=== PATIENT | male | born 1960 | race Two or more races ===

== ENCOUNTER 2020-03-20 04:39 | Inpatient (IN) | payer OTHER, SELFPAY ==
[2020-03-20] VITALS (13 sets, daily range): BP systolic 160–204; BP diastolic 86–115; PULSE 58–83; RESP 16–18; TEMP 36.6–36.8; O2SAT 96–99; BMI 33.2
--- NOTE | 2020-03-20 04:57 | PC.NURSE ---
PT TO ROOM #18 WITH C/O SOB AND LEFT SIDED CHEST PAIN WHICH STARTED 2 DAYS AGO. PT ARRIVES ALERT, RESPIRATIONS EASY, N/L. AT BEDSIDE FOR EVAL.
--- NOTE | 2020-03-20 05:01 | ECG_ITS ---
Test Reason : cp Blood Pressure : / mmHG Vent. Rate : 075 BPM Atrial Rate : 075 BPM P-R Int : 202 ms QRS Dur : 122 ms QT Int : 424 ms P-R-T Axes : 054 -15 116 degrees QTc Int : 473 ms Sinus rhythm with occasional Premature ventricular complexes Non-specific intra-ventricular conduction delay T wave abnormality, consider lateral ischemia Left axis deviation Abnormal ECG When compared with ECG of 06-MAY-2019 15:56, Premature ventricular complexes are now Present Premature atrial complexes are no longer Present Referred By: Amrik Luis Electronically Signed By:JAYCEE LIU MD
--- NOTE | 2020-03-20 05:04 | ED.SOB ---
HPI - SOB/Dyspnea General Chief Complaint: Dyspnea Stated Complaint: SOB Time Seen by Provider: 03/20/20 04:49 Source: patient History of Present Illness HPI Narrative: 59-year-old male states of chest pain for the past 2 days. Worsening with exertion and tonight states was feeling some shortness of breath with laying down. Denies diaphoresis denies dizziness. Denies recent cough or illness. Denies nausea or vomiting. States chest pain starts in the center radiates to the left side that has been constant for 2 days no cough MD elicited complaint: shortness of breath Onset (ago): day(s) (2) Severity: moderate Exacerbating factors: lying flat and exertion Relieving factors: rest Known history of: congestive heart failure Treatment prior to arrival: none Related Data Allergies Allergy/AdvReac Type Severity Reaction Status Date / Time No Known Allergies Allergy Unverified 01/13/20 18:50 [No Known Allergies*] Review of Systems Review of Systems: Constitutional : No Weight loss, No Fever, No Chills, No Night Sweats, No Fatigue, No Malaise ENT/Mouth : No Hearing loss, No Ear Pain, No Nasal Congestion, No Sinus Pain, No Hoarseness, No sore throat, No Rhinorrhea, No Swallowing Difficulty Eyes: No Eye Pain, No Swelling, No Redness, No Foreign Body, No Discharge, No Vision Changes Cardiovascular : Positive Chest Pain, No SOB, No Dyspnea on Exertion, No Orthopnea, No Edema, No Palpitations Respiratory : No Cough, No Sputum, No Wheezing, No Smoke Exposure, mild Dyspnea Gastrointestinal : No Nausea, No Vomiting, No Diarrhea, No Constipation, No abdominal Pain, No Hematochezia, No Melena Genitourinary : no irregular bleeding, No Dysuria, No Urinary Frequency, No Hematuria, No Urinary Incontinence, No Urgency, No Flank Pain, No Urinary Flow Changes, No Hesitancy Musculoskeletal : No joint pain, No Myalgias, No Joint Swelling Skin : No Skin Lesions, No rash Neuro : No Weakness, No Numbness, No Paresthesias, No Loss of Consciousness, No Dizziness, No Headache Psych : No Anxiety/Panic, No Depression, No SI/HI/AH/VH, No Social Issues, Heme/Lymph: No Bruising, No Bleeding,No Lymphadenopathy Endocrine : No Polyuria, No Polydipsia, No Temperature Intolerance [facility] Past Medical History Medical History CHF (congestive heart failure) Hypertension Renal infarct Family History Family History (Updated 03/20/20 @ 05:05 by Amrik Luis DO) Other Family history non-contributory Social History Social History (Updated 03/20/20 @ 05:04 by Amrik Luis DO) Household Members: Family Advance Directives: Yes Advance Directives Information Provided: Yes Advance Directives on File: No Physical Exam Vital Signs: Vital Signs: Last Vital Signs Pulse 79 03/20/20 06:42 Resp 16 03/20/20 06:42 BP 172/86 H 03/20/20 06:42 Pulse Ox 99 03/20/20 06:42 Body Mass Index 33.2 Vital signs reviewed Appearance: Alert. Oriented X3. No acute distress. Eyes: Pupils equal, round and reactive to light. ENT: Pharynx normal. Neck: Normal inspection. Neck supple. No lymph nodes noted. No crepitus CVS: Normal heart rate and rhythm. Pulses normal. Normal S1 and S2 Respiratory: Mild respiratory distress. Breath sounds with bibasilar rales No Wheezing. No crackles Abdomen: Soft and nontender. No rigidity. No distention. good BS x4 Skin: Skin warm and dry. Normal skin color. Normal skin turgor. Extremities: No lower extremity edema. Neurovascular intact to all extremities. No Lacerations. No Rash Neuro: Oriented X 3. No motor deficit. No sensory deficit. Moving all extermities. No slurred speech. Course Reevaluation(s) Reevaluation #1: Patient with slightly elevated blood pressure. Patient with mild chest pain on left. Reevaluation #2: Records reviewed by me in 2017 with an EF% of 28% stress test Reevaluation #3: Multiple re-evaluations were done by me while the patient has been Emergency Department secondary to shortness of breath. Patient was given albuterol, nitroglycerin, IV Lasix in order to improve his symptoms and prevent further deterioration Consultations Consultation #1: I spoke with hospitalist, Dr. Dallas and will accept the patient for admission MDM - SOB/Dyspnea MDM Narrative Medical decision making narrative: 59-year-old male with a history of cardiomyopathy, CHF. With left-sided chest pain for 2 days with increased dyspnea on exertion and orthopnea for 1 day. Slightly elevated troponin slightly elevated BNP will treat with IV Lasix, nitro, aspirin. My impression is patient is and slight CHF. Will need to be admitted for IV diuretics and further workup Differential Diagnosis Differential diagnosis: Likely acute exacerbation of chronic obstructive airways disease, congestive heart failure, pneumonia and asthma with exacerbation Lab Data Result diagrams: 03/20/20 05:15 03/20/20 05:15 Labs: Lab Results 03/20/20 03/20/20 03/20/20 Range/Units 05:15 05:15 05:15 WBC 6.2 (4.8-10.8) X10*3/uL RBC 4.73 (4.60-5.80) X10*6/uL Hgb 14.4 (14.0-18.0) g/dl Hct 43.2 (42-52) % MCV 91.3 (80-98) fL MCH 30.4 (27.0-33.0) pg MCHC 33.3 (31.0-36.0) g/dl RDW 12.5 (11.0-16.0) % Plt Count 302 (160-400) X10*3/uL MPV 10.6 (9.4-12.4) fL Immature Gran % (Auto) 0.2 (0.0-0.4) % Neut % (Auto) 45.4 (45-73) % Lymph % (Auto) 39.2 (20-40) % [place] % (Auto) 11.2 H (2-11) % Eos % (Auto) 3.2 (0-4) % Baso % (Auto) 0.8 (0-2) % Lymph # (Auto) 2.4 (1.2-4.9) X10*3/uL [place] # (Auto) 0.7 (0.1-1.2) X10*3/uL Eos # (Auto) 0.2 (0.0-0.4) X10*3/uL Baso # (Auto) 0.1 (0.0-0.2) X10*3/uL Abs Immat Gran (auto) 0.01 (0.00-0.03) X10*3/uL Absolute Neuts (auto) 2.8 (2.0-8.3) X10*3/uL Absolute Nucleated RBC 0.000 (0.0-0.012) X10*3/uL Nucleated RBC % (auto) 0.0 (0.0-0.2) /100WBC Hold Blue Top SEE NOTE Sodium 141 (135-145) mmol/L Potassium 4.3 (3.3-5.1) mmol/l Chloride 106 (96-108) mmol/L Carbon Dioxide 27 (22-29) mmol/L Anion Gap 12 (12-20) BUN 23 H (9-16) mg/dL Creatinine 1.37 (0.5-1.4) mg/dL Estim Creat Clear Calc 72.8 Estimated GFR 53 Random Glucose 104 (60-115) mg/dL Calcium 9.1 (8.4-10.2) mg/dL Total Bilirubin 0.4 (0.0-1.0) mg/dL Direct Bilirubin 0.2 (0.0-0.5) mg/dL AST 17 (5-37) U/L ALT 16 (0-40) U/L Alkaline Phosphatase 87 (39-117) U/L Troponin I High Sens (<3.5-35.0) ng/L B-Natriuretic Peptide (<100) pg/mL Total Protein 6.7 (6.5-8.0) g/dL Albumin 4.1 (3.5-5.0) g/dL 03/20/20 Range/Units 05:15 WBC (4.8-10.8) X10*3/uL RBC (4.60-5.80) X10*6/uL Hgb (14.0-18.0) g/dl Hct (42-52) % MCV (80-98) fL MCH (27.0-33.0) pg MCHC (31.0-36.0) g/dl RDW (11.0-16.0) % Plt Count (160-400) X10*3/uL MPV (9.4-12.4) fL Immature Gran % (Auto) (0.0-0.4) % Neut % (Auto) (45-73) % Lymph % (Auto) (20-40) % Sampson % (Auto) (2-11) % Eos % (Auto) (0-4) % Baso % (Auto) (0-2) % Lymph # (Auto) (1.2-4.9) X10*3/uL Sampson # (Auto) (0.1-1.2) X10*3/uL Eos # (Auto) (0.0-0.4) X10*3/uL Baso # (Auto) (0.0-0.2) X10*3/uL Abs Immat Gran (auto) (0.00-0.03) X10*3/uL Absolute Neuts (auto) (2.0-8.3) X10*3/uL Absolute Nucleated RBC (0.0-0.012) X10*3/uL Nucleated RBC % (auto) (0.0-0.2) /100WBC Hold Blue Top Sodium (135-145) mmol/L Potassium (3.3-5.1) mmol/l Chloride (96-108) mmol/L Carbon Dioxide (22-29) mmol/L Anion Gap (12-20) BUN (9-16) mg/dL Creatinine (0.5-1.4) mg/dL Estim Creat Clear Calc Estimated GFR Random Glucose (60-115) mg/dL Calcium (8.4-10.2) mg/dL Total Bilirubin (0.0-1.0) mg/dL Direct Bilirubin (0.0-0.5) mg/dL AST (5-37) U/L ALT (0-40) U/L Alkaline Phosphatase (39-117) U/L Troponin I High Sens 60.2 H (<3.5-35.0) ng/L B-Natriuretic Peptide 402 H (<100) pg/mL Total Protein (6.5-8.0) g/dL Albumin (3.5-5.0) g/dL Critical Care Time Critical Care Time Critical Care Time: Yes Total Critical Care Time: 35 Attestation: I that test to my critical care time Discharge Plan Discharge Clinical Impression: Congestive heart failure Qualifiers: Heart failure type: systolic Heart failure chronicity: acute Qualified Code(s): I50.21 - Acute systolic (congestive) heart failure Patient Disposition: Admitted As Inpatient EKG interpretations EKG EKG results cardiology: interpreted by ODETTE Dysrhythmias Sinus rhythms and dysrhythmias: sinus rhythm Blocks, axis, hypertrophy, ST abn QRS axis and voltage: right axis deviation (+90 to +180) Repolarization changes or abnormalities: nonspecific abnormality, ST segment, and/or T wave MT, pacemaker, normal Normal tracing: normal tracing
[2020-03-20 05:20] LABS: Basophils Absolute Auto 0.1 X10*3/uL (0.0-0.2); Basophils Percent Auto 0.8 % (0-2); Eosinophils Absolute Auto 0.2 X10*3/uL (0.0-0.4); Eosinophils Percent Auto 3.2 % (0-4); Hematocrit 43.2 % (42-52); Hemoglobin 14.4 g/dl (14.0-18.0); Imm Gran Abs Auto 0.01 X10*3/uL (0.00-0.03); Imm Gran Pct Auto 0.2 % (0.0-0.4); Lymphocytes Absolute Auto 2.4 X10*3/uL (1.2-4.9); Lymphocytes Percent Auto 39.2 % (20-40); MANUAL DIFF FLAG NO; Mean Corpuscular HGB Conc 33.3 g/dl (31.0-36.0); Mean Corpuscular Hemoglobin 30.4 pg (27.0-33.0); Mean Corpuscular Volume 91.3 fL (80-98); Mean Platelet Volume 10.6 fL (9.4-12.4); Monocytes Absolute Auto 0.7 X10*3/uL (0.1-1.2); Monocytes Percent Auto 11.2 % (2-11); Neutrophils Absolute Auto 2.8 X10*3/uL (2.0-8.3); Neutrophils Percent Auto 45.4 % (45-73); Platelet Count 302 X10*3/uL (160-400); Red Blood Count 4.73 X10*6/uL (4.60-5.80); Red Cell Distribution Width 12.5 % (11.0-16.0); White Blood Count 6.2 X10*3/uL (4.8-10.8)
--- NOTE | 2020-03-20 05:20 | PC.NURSE ---
PT CHG INTO GOWN AND HL PLACED TO LAC, LABS DRAWN TO LAB. PT ON MONITOR WITH HR 67.
--- NOTE | 2020-03-20 05:21 | PC.NURSE ---
B/P MD VITOR AWARE.
--- NOTE | 2020-03-20 05:39 | PC.NURSE ---
EKG OBTAINED TO
[2020-03-20] MEDS: Albuterol/Iprat 2.5/0.5MG 3 ML AMPUL.NEB INHALE (05:43)
--- NOTE | 2020-03-20 05:44 | PC.NURSE ---
RESPIRATORY IN ROOM FOR ISABEL IYER.
[2020-03-20 05:46] LABS: Alanine Aminotransferase 16 U/L (0-40); Albumin Level 4.1 g/dL (3.5-5.0); Alkaline Phosphatase 87 U/L (39-117); Anion Gap 12 (12-20); Aspartate Amino Transferase 17 U/L (5-37); Bilirubin Direct 0.2 mg/dL (0.0-0.5); Bilirubin Total 0.4 mg/dL (0.0-1.0); Blood Urea Nitrogen 23 mg/dL (9-16); Calcium 9.1 mg/dL (8.4-10.2); Carbon Dioxide 27 mmol/L (22-29); Chloride 106 mmol/L (96-108); Creatinine Clr Calc Pharmacy 72.8; Estimated Glomerular Filt Rate 53; Glucose Random 104 mg/dL (60-115); Potassium 4.3 mmol/l (3.3-5.1); Sodium 141 mmol/L (135-145); Total Protein 6.7 g/dL (6.5-8.0)
[2020-03-20 05:54] LABS: B Type Natriuretic Peptide 402 pg/mL (<100); Troponin-I High Sensitivity 60.2 ng/L (<3.5-35.0)
--- NOTE | 2020-03-20 05:57 | XR_ITS ---
EXAMINATION: XR CHEST CLINICAL INFORMATION: Chest pain COMPARISON: 05/06/2019 TECHNIQUE: Frontal view of the chest was obtained. FINDINGS: Lung volumes are symmetric. No focal consolidation is seen. There is mild prominence of the perihilar interstitium. No evidence of pneumothorax or significant pleural effusion. Cardiac silhouette appears mildly enlarged. No acute osseous findings are seen. XR/XR chest 1V IMPRESSION: Prominent perihilar interstitium which could reflect airways disease or mild vascular congestion. No focal consolidation.
[2020-03-20] MEDS: Nitroglycerin 2 % Oint 1 GM Packet 0.5 INCH TRANSDERMA (06:37)
[2020-03-20] MEDS: Aspirin 81 MG TAB.CHEW 162 MG PO (06:37)
[2020-03-20] MEDS: Furosemide 100 MG/10 ML VIAL 80 MG IVPUSH (06:38)
--- NOTE | 2020-03-20 06:41 | PC.NURSE ---
PT MEDICATED PER EMAR.
--- NOTE | 2020-03-20 06:44 | PC.NURSE ---
PT STATES IM BREATHING BETTER AND MY CHEST PAIN IS NOW AT A 6/10. PT REQUESTING TO MOVE ROOM D/T TV IS NOT WORKING.
--- NOTE | 2020-03-20 07:27 | PC.NURSE ---
Report received from Anna CARLOS. Patient resting comfortably on stretcher and reports improvement in pain. On athletic monitor. Respirations regular and even, reports improvement in SOB. Skin PWD. Patient aware of plan of care for admission. Fiance updated at this time. Can be reached [phone]. Awaiting admission orders.
--- NOTE | 2020-03-20 08:28 | PM.IMHP ---
History of Present Illness Date of Service: 03/20/20 Chief Complaint: Orthopnea, COREA, Chest Pressure Patient seen and examined in the ED, history obtained from the patient with the help of a Syriac speaking staff interpreter. This is a 59-year-old male with a past medical history of of cardiomyopathy ( nonischemic per previous documentation), hypertension, CKD who presents to the hospital complaints of left-sided pressure and orthopnea which began 2 days prior to arrival. He reports feeling like himself until his symptoms began Friday and have since progressed. He is unsure if he has gained any weight but denies any lower extremity swelling. He reports his SOB was primarily orthopnea initially, but eventually even while sitting. In regards to his left sided pressure, he reports that it was a constant aching, and that he wouldnt call it pain. Reports he was left chest and radiated to the L axilla. He denies any cough or sob. Denies fevers or chills. He denies any sick contacts. Patient reports that he went to his doctors at the [facility] last week where he had an echocardiogram and he was told everything was fine. In the ED - patients BP was >200/100, a BNP elevated to 402, high sensitivity troponin 60.2, EKG showing some nonspecific T-wave abnormalities and a chest x-ray which showed congestion. He was given nitropaste, aspirin, Lasix 80 mg with improvement in his symptoms and admission was requested for CHF exacerbation. Review of Systems Review of Systems: General - denies fevers or chills, denies weakness or fatigue HEENT - denies blurred vision, denies headache, denies sore throat Cardiovascular - +chest pressure, +orthopnea,+COREA Respiratory - denies cough or wheezing Gastrointestinal - denies abdominal pain, nausea, vomiting, diarrhea - denies flank pain, denies dysuria, denies frequency or urgency Musculoskeletal - denies back pain, denies hip pain, denies knee pain, denies shoulder pain Neurological - denies any focal weakness or numbness Skin, denies any bruising or redness Psychiatric - denies any suicidal ideation, hallucinations, homicidal ideation Endocrinology - denies intolerance to hot / cold temperatures [facility] Medical History CHF (congestive heart failure) Hypertension Renal infarct Family History (Updated 03/20/20 @ 08:37 by Kaiden Lundy MD) Other CAD (coronary artery disease) Social History (Updated 03/20/20 @ 05:04 by Amrik Luis DO) Household Members: Family Alcohol intake: never Smoking Status: Never smoker Use of substances other than those prescribed or required for medical reasons: No Advance Directives: Yes Advance Directives Information Provided: Yes Advance Directives on File: No Meds Allergies Allergy/AdvReac Type Severity Reaction Status Date / Time No Known Allergies Allergy Unverified 01/13/20 18:50 [No Known Allergies*] Home Medications Medication Instructions Recorded Confirmed Type amlodipine 10 mg PO BEDTIME 03/20/20 03/20/20 History carvedilol 25 mg PO BEDTIME 03/20/20 03/20/20 History furosemide 20 mg PO BEDTIME 03/20/20 03/20/20 History sacubitril-valsartan [Entresto] 1 tab PO BEDTIME 03/20/20 03/20/20 History spironolactone 25 mg PO BEDTIME 03/20/20 03/20/20 History Physical Exam Vital Signs and Narrative: Vital Signs: Last Vital Signs Pulse 79 03/20/20 06:42 Resp 16 03/20/20 06:42 BP 172/86 H 03/20/20 06:42 Pulse Ox 99 03/20/20 06:42 Body Mass Index 33.2 Constitutional - Awake and Alert, No apparent distress Eyes - PERRLA, EOMI Cardiovascular - S1S2, RRR, minimal LE edema Respiratory - rales at the bilateral bases Gastrointestinal - NT / ND; +BS; No rebound or guarding - No CVA tenderness Extremities - no calf tenderness bilaterally, no swelling Musculoskeletal - Normal inspection, normal ROM Skin - Warm/Dry Neurological - Alert & oriented x3, No focal deficit Psychological - Appropriate affect Results Labs CBC and Chem 7: 03/20/20 05:15 03/20/20 05:15 Labs: Laboratory Results - last 24 hr 03/20/20 03/20/20 03/20/20 05:15 05:15 05:15 MCV 91.3 MCH 30.4 MCHC 33.3 RDW 12.5 Plt Count 302 MPV 10.6 Immature Gran % (Auto) 0.2 Neut % (Auto) 45.4 Lymph % (Auto) 39.2 [place] % (Auto) 11.2 H Eos % (Auto) 3.2 Baso % (Auto) 0.8 Lymph # (Auto) 2.4 [place] # (Auto) 0.7 Eos # (Auto) 0.2 Baso # (Auto) 0.1 Abs Immat Gran (auto) 0.01 Absolute Neuts (auto) 2.8 Absolute Nucleated RBC 0.000 Nucleated RBC % (auto) 0.0 Hold Blue Top SEE NOTE Anion Gap 12 Estim Creat Clear Calc 72.8 Estimated GFR 53 Random Glucose 104 Calcium 9.1 Total Bilirubin 0.4 Direct Bilirubin 0.2 AST 17 ALT 16 Alkaline Phosphatase 87 Troponin I High Sens B-Natriuretic Peptide Total Protein 6.7 Albumin 4.1 03/20/20 05:15 MCV MCH MCHC RDW Plt Count MPV Immature Gran % (Auto) Neut % (Auto) Lymph % (Auto) [place] % (Auto) Eos % (Auto) Baso % (Auto) Lymph # (Auto) [place] # (Auto) Eos # (Auto) Baso # (Auto) Abs Immat Gran (auto) Absolute Neuts (auto) Absolute Nucleated RBC Nucleated RBC % (auto) Hold Blue Top Anion Gap Estim Creat Clear Calc Estimated GFR Random Glucose Calcium Total Bilirubin Direct Bilirubin AST ALT Alkaline Phosphatase Troponin I High Sens 60.2 H B-Natriuretic Peptide 402 H Total Protein Albumin Imaging Radiologist's Impressions: Impressions Chest X-Ray 03/20/20 05:57 IMPRESSION: Prominent perihilar interstitium which could reflect airways disease or mild vascular congestion. No focal consolidation. Assessment and Plan (1) Congestive heart failure: Qualifiers: Heart failure chronicity: acute Heart failure type: systolic Qualified Code(s): I50.21 - Acute systolic (congestive) heart failure Status: Acute This is a 59 yo M with a PMH Of non-ischemic CMP (last Echo in our system in 2014 showing EF of 40-45%), previous renal infarct, HTN, ? CKD who presents to the hospital with a 2 day history of progressive dyspnea, orthopnea and chest pressure. His work up and presentation was consistant with CHF and he will be admitted for further treatment. 1. Acute CHF, likely systolic question if related to BP received IV lasix 80mg, start 40mg this evening I/O, daily weight, fluid restrict, low Na diet obtain Echo from [facility] (Pt reports done last week) 2. Chest pressure / elevated HS trop-I possibly due to CHF /HTN, HS trop-I not entirely impressive, EKG with non-specific t-wave changes his pain has improved with nitro and diuresis in the ED trend HS trop-I - > repeat ecreased consult cardiology 3. Uncontrolled HTN restart home meds -- takes them in the evening at home, missed last night's doses give coreg 12.5mg + norsvac 5mg now 4. Prior history of renal infact was previously on OAC with coumadin, pt tells me he was taken off this Full Code DVT pptx, Lovenox
[2020-03-20 08:39] LABS: COVID-19 Test Negative (Negative); IDNOW Serial# 9DD0AD1C
--- NOTE | 2020-03-20 09:05 | PC.NURSE ---
Patient reporting he continues to feel comfortable and with regular, even, and nonlabored respirations. Skin PWD. Dr. Lundy down to assess patient. COVID swabbed and repeat Troponin drawn. Patient tolerated well. Report called to floor, awaiting call back. Pharmacy down to complete med rec. Awaiting floor to receive report.
--- NOTE | 2020-03-20 09:19 | PC.NURSE ---
Report given to [facility], awaiting room to be cleaned.
[2020-03-20 09:37] LABS: Troponin-I High Sensitivity 46.9 ng/L (<3.5-35.0)
[2020-03-20] MEDS: carvediloL 12.5 MG TABLET PO (10:59)
[2020-03-20] MEDS: 0.9 % Sodium Chloride Flush 3 ML SYRINGE IVFLUSH (11:00)
[2020-03-20] MEDS: amLODIPine Besylate 5 MG TABLET PO (11:42)
[2020-03-20] MEDS: Enoxaparin Sodium 40 MG/0.4 ML SYRINGE SUBCUT (11:42)
--- NOTE | 2020-03-20 12:13 | PM.CNCAR ---
History of Present Illness History of Present Illness Date of Consult: March 20, 2020 Requesting physician: Del Pagan Chief complaint: chf Narrative: 59-year-old gentleman who follows up at [facility] for heart failure. He has background of nonischemic cardiomyopathy. Recent echocardiography was performed a week ago which we do not have report of. He is presenting primarily for pressure in his chest and abdomen along with dyspnea and orthopnea. These symptoms started on Friday. He presented to us with significantly elevated blood pressures. He was given nitroglycerin patch as well as Lasix in the ER and his symptoms have improved. His blood pressure continues to be elevated. He has has been on multiple medications at home and is saying that he has been taking medications regularly. Previously it was thought that his nonischemic cardiomyopathy is due to elevated blood pressures. His chest pressure is improved after nitroglycerin and controlling his blood pressure somewhat. 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 Currently is not on Coumadin. There is also question whether he needs cardiac event monitor to rule out atrial fibrillation or atrial flutter. Review of Systems Review of Systems: Dyspnea, orthopnea Yes all other systems are reviewed and are negative [facility] Past Medical History Medical History CHF (congestive heart failure) Hypertension Renal infarct Family History Family History (Updated 03/20/20 @ 08:37 by Kaiden Lundy MD) Other CAD (coronary artery disease) Social History Social History (Updated 03/20/20 @ 05:04 by Amrik Luis DO) Household Members: Family Alcohol intake: never Smoking Status: Never smoker Use of substances other than those prescribed or required for medical reasons: No Advance Directives: Yes Advance Directives Information Provided: Yes Advance Directives on File: No Meds Allergies Allergy/AdvReac Type Severity Reaction Status Date / Time No Known Allergies Allergy Unverified 01/13/20 18:50 [No Known Allergies*] Home Medications Medication Instructions Recorded Confirmed Type amlodipine 10 mg PO BEDTIME 03/20/20 03/20/20 History carvedilol 25 mg PO BEDTIME 03/20/20 03/20/20 History furosemide 20 mg PO BEDTIME 03/20/20 03/20/20 History sacubitril-valsartan [Entresto] 1 tab PO BEDTIME 03/20/20 03/20/20 History spironolactone 25 mg PO BEDTIME 03/20/20 03/20/20 History Physical Exam Vital Signs: Vital Signs: Last Vital Signs Pulse 74 03/20/20 10:56 Resp 18 03/20/20 10:56 BP 184/91 H 03/20/20 10:56 Pulse Ox 96 03/20/20 10:56 Body Mass Index 33.2 GENERAL APPEARANCE: in no acute distress, well developed, well nourished. HEENT: unremarkable. HEAD: normocephalic, atraumatic. NECK/THYROID: no carotid bruit, mild JVD SKIN: no suspicious lesions, warm and dry. HEART: no murmurs, regular rate and rhythm, S1, S2 normal. LUNGS: clear to auscultation bilaterally. ABDOMEN: normal, bowel sounds present, soft, nontender, nondistended. EXTREMITIES: no clubbing, cyanosis, or edema. PERIPHERAL PULSES: equal. NEUROLOGIC: nonfocal, alert and oriented. PSYCH: mood/affect full range. Results Labs and Meds Result diagrams: 03/20/20 05:15 03/20/20 05:15 Lab results: Laboratory Results - last 24 hr 03/20/20 03/20/20 03/20/20 05:15 05:15 05:15 WBC 6.2 RBC 4.73 Hgb 14.4 Hct 43.2 MCV 91.3 MCH 30.4 MCHC 33.3 RDW 12.5 Plt Count 302 MPV 10.6 Immature Gran % (Auto) 0.2 Neut % (Auto) 45.4 Lymph % (Auto) 39.2 Mcpherson % (Auto) 11.2 H Eos % (Auto) 3.2 Baso % (Auto) 0.8 Lymph # (Auto) 2.4 Mcpherson # (Auto) 0.7 Eos # (Auto) 0.2 Baso # (Auto) 0.1 Abs Immat Gran (auto) 0.01 Absolute Neuts (auto) 2.8 Absolute Nucleated RBC 0.000 Nucleated RBC % (auto) 0.0 Hold Blue Top SEE NOTE Sodium 141 Potassium 4.3 Chloride 106 Carbon Dioxide 27 Anion Gap 12 BUN 23 H Creatinine 1.37 Estim Creat Clear Calc 72.8 Estimated GFR 53 Random Glucose 104 Calcium 9.1 Total Bilirubin 0.4 Direct Bilirubin 0.2 AST 17 ALT 16 Alkaline Phosphatase 87 Troponin I High Sens B-Natriuretic Peptide Total Protein 6.7 Albumin 4.1 COVID-19 ([facility]) COVID-19 Clin Com 03/20/20 03/20/20 03/20/20 05:15 08:16 08:44 WBC RBC Hgb Hct MCV MCH MCHC RDW Plt Count MPV Immature Gran % (Auto) Neut % (Auto) Lymph % (Auto) Mcpherson % (Auto) Eos % (Auto) Baso % (Auto) Lymph # (Auto) Mcpherson # (Auto) Eos # (Auto) Baso # (Auto) Abs Immat Gran (auto) Absolute Neuts (auto) Absolute Nucleated RBC Nucleated RBC % (auto) Hold Blue Top Sodium Potassium Chloride Carbon Dioxide Anion Gap BUN Creatinine Estim Creat Clear Calc Estimated GFR Random Glucose Calcium Total Bilirubin Direct Bilirubin AST ALT Alkaline Phosphatase Troponin I High Sens 60.2 H 46.9 H B-Natriuretic Peptide 402 H Total Protein Albumin COVID-19 ([facility]) Negative COVID-19 Clin Com See Note EKG Interpretation EKG Comments: Sinus rhythm, PVCs, normal axis, T-wave changes laterally consider ischemia versus left ventricular hypertrophy. Assessment and Plan (1) Congestive heart failure: Qualifiers: Heart failure chronicity: acute Heart failure type: systolic Qualified Code(s): I50.21 - Acute systolic (congestive) heart failure Status: Acute (2) NICM (nonischemic cardiomyopathy): Status: Acute (3) Uncontrolled hypertension: Status: Acute (4) Chest discomfort: Status: Acute Pleasant 59-year-old gentleman who is here for dyspnea and chest discomfort. He has background of uncontrolled hypertension and nonischemic cardiomyopathy which was thought to be secondary to uncontrolled hypertension. He has been following at [facility]. He is now presenting with chest discomfort and significantly elevated blood pressure. As a blood pressure improved his chest pressure also improved. He had some dyspnea or orthopnea which is improving with diuretics. Clinically is not significantly volume overloaded. I think his main issue again is uncontrolled blood pressure. He is on a good regimen at home and I think we continue his home medications. I am adding 25 mg of hydrochlorothiazide to his regimen. 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 He recently had an echocardiogram done and I think we should get report from [facility]. He had previous cardiac catheterization which did not show any coronary artery disease. I think his chest discomfort due to significantly elevated blood pressures. He does not need heparin as this is not ACS. Thank you for allowing me to participate in the care of your patient. Please feel free to contact me if you have any questions. Procedures Abscess I/D Date of Service: 03/20/20
[2020-03-20] MEDS: hydroCHLOROthiazide 25 MG TABLET PO (14:02)
[2020-03-20] MEDS: Acetaminophen 325 MG TABLET 650 MG PO (14:04)
[2020-03-20] MEDS: Furosemide 40 MG/4 ML VIAL IVPUSH (17:15)
[2020-03-20] MEDS: carvediloL 25 MG TABLET PO (21:41)
[2020-03-20] MEDS: Spironolactone 25 MG TABLET PO (21:42)
[2020-03-20] MEDS: Sacubitril/Valsartan 97/103 1 TAB TABLET PO (21:42)
[2020-03-20] MEDS: amLODIPine Besylate 10 MG TABLET PO (21:44)
[2020-03-21] VITALS (7 sets, daily range): BP systolic 112–145; BP diastolic 72–89; PULSE 52–86; RESP 18; TEMP 36.4–36.8; O2SAT 96–99; BMI 33.2
[2020-03-21] MEDS: 0.9 % Sodium Chloride Flush 3 ML SYRINGE IVFLUSH ×3 (00:47→17:02)
[2020-03-21 06:37] LABS: Hematocrit 46.4 % (42-52); Hemoglobin 16.1 g/dl (14.0-18.0); Mean Corpuscular HGB Conc 34.7 g/dl (31.0-36.0); Mean Corpuscular Hemoglobin 30.7 pg (27.0-33.0); Mean Corpuscular Volume 88.5 fL (80-98); Mean Platelet Volume 10.9 fL (9.4-12.4); Platelet Count 327 X10*3/uL (160-400); Red Blood Count 5.24 X10*6/uL (4.60-5.80); Red Cell Distribution Width 12.2 % (11.0-16.0); White Blood Count 4.7 X10*3/uL (4.8-10.8)
[2020-03-21 07:08] LABS: Anion Gap 15 (12-20); Blood Urea Nitrogen 28 mg/dL (9-16); Calcium 9.2 mg/dL (8.4-10.2); Carbon Dioxide 26 mmol/L (22-29); Chloride 101 mmol/L (96-108); Creatinine Clr Calc Pharmacy 70.7; Estimated Glomerular Filt Rate 51; Glucose Random 113 mg/dL (60-115); Magnesium 2.3 mg/dL (1.6-2.6); Potassium 4.3 mmol/l (3.3-5.1); Sodium 138 mmol/L (135-145)
[2020-03-21] MEDS: hydroCHLOROthiazide 25 MG TABLET PO (08:51)
[2020-03-21] MEDS: Furosemide 40 MG/4 ML VIAL IVPUSH (08:52)
--- NOTE | 2020-03-21 09:04 | MHC.CM.PN ---
CM met with Patient. 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 Patient's goal is to return home, no services and CM has initiated and will follow for dc planning. PCP is Dr. Gemini Fuentes.
--- NOTE | 2020-03-21 09:25 | PM.PNCARD ---
Subjective Subjective Principal diagnosis: CP, uncontrolled HTN, Nonischemic CMP, HF Interval history: Cardiology follow up for CP, uncontrolled HTN, HF. Feeling good today. No longer has CP. BP now better controlled. Hoping to be able to go home today. Review of Systems Review of Systems Yes all other systems are reviewed and are negative Constitutional: Denies frequent falls Reports system reviewed and no additional complaints, except as documented and Denies dizziness Cardiovascular: Denies chest pain, Denies chest pain at rest, Denies chest pain with activity, Denies Epigastric Pain, Denies syncope, Denies claudication, Denies lightheadedness, Denies radiating jaw, neck or arm pain, Denies palpitations, Denies dyspnea on exertion and Denies orthopnea Respiratory: Denies chest congestion, Denies cough, Denies pain on inspiration and Denies dyspnea on exertion Gastrointestinal: Reports no additional gastrointestinal complaints and Denies abdominal pain Musculoskeletal: Reports no additional musculoskeletal complaints Denies Abnormal speech present, Denies confusion, Denies dizziness, Denies syncope and Denies frequent falls Psychiatric: Denies confusion Endocrine: Denies palpitations Physical Exam Vital Signs: Last Vital Signs Temp 97.6 F 03/21/20 07:23 Pulse 86 03/21/20 07:23 Resp 18 03/21/20 07:23 BP 136/89 03/21/20 07:23 Pulse Ox 97 03/21/20 07:23 Body Mass Index 33.2 Const General: No confusion Orientation/consciousness: No confusion HENMT Head: Yes normal to inspection Neck Neck: Yes normal visual inspection and Yes no JVD Carotids: carotid upstroke abnormal Resp Effort & Inspection: normal respiratory effort, able to speak in complete sentences and not labored Auscultation: clear to auscultation bilaterally, no crackles, no rales, no rhonchi and no wheezes Cardio Palpation: normal PMI Rate: regular rate Rhythm: regular rhythm Heart sounds: S1 normal heart sound present and S2 normal heart sound present GI Inspection: Yes normal to inspection Skin General skin exam: no rashes or lesions noted Neuro General: No confusion Speech: No Abnormal speech present Extrem General: Yes normal to inspection and No edema Results Labs and Meds Result diagrams: 03/21/20 05:26 03/21/20 05:26 Lab results: Laboratory Results - last 24 hr 03/20/20 03/21/20 03/21/20 08:44 05:26 05:26 WBC 4.7 L RBC 5.24 Hgb 16.1 Hct 46.4 MCV 88.5 MCH 30.7 MCHC 34.7 RDW 12.2 Plt Count 327 MPV 10.9 Absolute Nucleated RBC 0.000 Nucleated RBC % (auto) 0.0 Sodium 138 Potassium 4.3 Chloride 101 Carbon Dioxide 26 Anion Gap 15 BUN 28 H Creatinine 1.41 H Estim Creat Clear Calc 70.7 Estimated GFR 51 Random Glucose 113 Calcium 9.2 Magnesium 2.3 Troponin I High Sens 46.9 H 03/21/20 05:26 WBC RBC Hgb Hct MCV MCH MCHC RDW Plt Count MPV Absolute Nucleated RBC Nucleated RBC % (auto) Sodium Cancelled Potassium Cancelled Chloride Cancelled Carbon Dioxide Cancelled Anion Gap Cancelled BUN Cancelled Creatinine Cancelled Estim Creat Clear Calc Cancelled Estimated GFR Cancelled Random Glucose Cancelled Calcium Cancelled Magnesium Cancelled Troponin I High Sens Progress Note: A&P Assessment and plan (1) Chest discomfort: Status: Acute Assessment and Plan: Admit with CP. BP uncontrolled. Trop very slight elevation. EKG with lateral ST/ T wave abn, no signif change from prior. Trop elevation likely related to demand from HTN. No ACS. HCTZ was added for BP control. This am BP 136/89. No longer having CP. Had echo recently at [facility] - we are trying to obtain that result. He admits to taking his Carvedilol and entresto only once daily, in the bereket. Tele shows heart rate average 50s- 60s. Will further discuss med mgt with Dr Bobo. (2) Uncontrolled hypertension: Status: Acute Assessment and Plan: On Carvedilol, Entresto once daily, Amlodipine, aldactone, lasix and now HCTZ. BP is improving. Cr 1.41, BUN 28, both up some today. Again will discuss meds with Dr Bobo (3) NICM (nonischemic cardiomyopathy): Status: Acute (4) Congestive heart failure: Status: Acute Assessment and Plan: On admit, BNP 402. Mild CHF. Diuresed with IV lasix. Fluid balance neg 1660cc since admit. He does not appear fluid overloaded on exam. Will resume usual home PO lasix. (5) NSVT (nonsustained ventricular tachycardia): Status: Acute Assessment and Plan: Tele monitoring shows a 10 beat NSVT episode. [facility] Has known hx of nonischemic CMP. On Carvedilol. Labs this am K 4.3, Mg 2.3. Ongoing tele monitoring. Fall Risk Details Current Medications: Current Medications Generic Name Dose Route Start Last Admin Trade Name Freq PRN Reason Stop Dose Admin Acetaminophen 650 mg 03/20/20 10:23 03/20/20 14:04 Acetaminophen 325 Mg Tablet PO 650 mg Q6H PRN Administration Pain, Mild (Pain Scale 1-3) Amlodipine Besylate 10 mg 03/20/20 21:00 03/20/20 21:44 Amlodipine Besylate 10 Mg Tablet PO 10 mg BEDTIME NENA Administration Protocol Carvedilol 25 mg 03/20/20 21:00 03/20/20 21:41 Carvedilol 25 Mg Tablet PO 25 mg BEDTIME NENA Administration Protocol Enoxaparin Sodium 40 mg 03/20/20 12:00 03/20/20 11:42 Enoxaparin Sodium 40 Mg/0.4 Ml Syringe SUBCUT 40 mg Q24H NENA Administration Furosemide 40 mg 03/20/20 18:00 03/21/20 08:52 Furosemide 40 Mg/4 Ml Vial IVPUSH 40 mg BID@0900,1800 NENA Administration Protocol Hydrochlorothiazide 25 mg 03/20/20 12:15 03/21/20 08:51 Hydrochlorothiazide 25 Mg Tablet PO 25 mg DAILY NENA Administration Protocol Pharmacy Consult 1 each 03/20/20 07:57 Consult Rx Perform Med Rec MISCELLANE ONCE PRN Consult order Sacubitril/Valsartan 1 tab 03/20/20 21:00 03/20/20 21:42 Sacubitril/Valsartan 97/103 1 Tab Tablet PO 1 tab BEDTIME NENA Administration Protocol Sodium Chloride 3 ml 03/20/20 16:00 03/21/20 08:52 0.9 % Sodium Chloride Flush 3 Ml Syringe IVFLUSH 3 ml QSHIFT NENA Administration Spironolactone 25 mg 03/20/20 21:00 03/20/20 21:42 Spironolactone 25 Mg Tablet PO 25 mg BEDTIME NENA Administration Protocol Time Spent With Patient Time: Total time spent is greater than 50% in coordination of care (as documented) at patient's floor/unit and/or counseling patient: Time with patient: 15 - 24 minutes Procedures Abscess I/D Date of Service: 03/21/20
--- NOTE | 2020-03-21 11:05 | HO.PM.IMPN ---
Subjective Subjective Date of Service: 03/21/20 Interval History: seen and examined this AM reports resolution of his symptoms hoping to go home, but understands why he needs to wait Review of Systems General - denies fevers or chills Cardiovascular -chest pressure and orthopnea resolved Respiratory - COREA resolved Gastrointestinal - denies abdominal pain, nausea, vomiting, diarrhea Physical Exam Vital Signs: Vital Signs: Last Vital Signs Temp 98.0 F 03/21/20 10:56 Pulse 66 03/21/20 10:56 Resp 18 03/21/20 10:56 BP 112/76 03/21/20 10:56 Pulse Ox 97 03/21/20 10:56 Body Mass Index 33.2 General - Awake and Alert, No apparent distress Cardiovascular - S1S2, RRR Respiratory - lungs clear Gastrointestinal - NT / ND; +BS; No rebound or guarding Extremities - no calf tenderness bilaterally, no swelling Neurological - Alert & oriented x3, No focal deficit Psychological - Appropriate affect Objective Data Current Medications Generic Name Dose Route Start Last Admin Trade Name Freq PRN Reason Stop Dose Admin Acetaminophen 650 mg 03/20/20 10:23 03/20/20 14:04 Acetaminophen 325 Mg Tablet PO 650 mg Q6H PRN Administration Pain, Mild (Pain Scale 1-3) Amlodipine Besylate 10 mg 03/20/20 21:00 03/20/20 21:44 Amlodipine Besylate 10 Mg Tablet PO 10 mg BEDTIME NENA Administration Protocol Carvedilol 25 mg 03/20/20 21:00 03/20/20 21:41 Carvedilol 25 Mg Tablet PO 25 mg BEDTIME NENA Administration Protocol Enoxaparin Sodium 40 mg 03/20/20 12:00 03/20/20 11:42 Enoxaparin Sodium 40 Mg/0.4 Ml Syringe SUBCUT 40 mg Q24H NENA Administration Hydrochlorothiazide 25 mg 03/20/20 12:15 03/21/20 08:51 Hydrochlorothiazide 25 Mg Tablet PO 25 mg DAILY NENA Administration Protocol Pharmacy Consult 1 each 03/20/20 07:57 Consult Rx Perform Med Rec MISCELLANE ONCE PRN Consult order Sacubitril/Valsartan 1 tab 03/20/20 21:00 03/20/20 21:42 Sacubitril/Valsartan 97/103 1 Tab Tablet PO 1 tab BEDTIME NENA Administration Protocol Sodium Chloride 3 ml 03/20/20 16:00 03/21/20 08:52 0.9 % Sodium Chloride Flush 3 Ml Syringe IVFLUSH 3 ml QSHIFT NENA Administration Spironolactone 25 mg 03/20/20 21:00 03/20/20 21:42 Spironolactone 25 Mg Tablet PO 25 mg BEDTIME NENA Administration Protocol Labs CBC & Chem 7: 03/21/20 05:26 03/21/20 05:26 Assessment and Plan (1) Congestive heart failure: Status: Acute Assessment and Plan: This is a 59 yo M with a PMH Of non-ischemic CMP (last Echo in our system in 2014 showing EF of 40-45%), previous renal infarct, HTN, ? CKD who presents to the hospital with a 2 day history of progressive dyspnea, orthopnea and chest pressure. His work up and presentation was consistant with CHF and he will be admitted for further treatment. 1. Acute CHF, likely systolic likely 2/2 to uncontrolled HTN improved with IV lasix and BP control stop IV lasix and change to PO [facility] 2. Chest pressure / elevated HS trop-I due to BP resolved HS trop-I down trending cardiology on the case 3. Uncontrolled HTN improved continue current regime 4. Prior history of renal infact was previously on OAC with coumadin, pt tells me he was taken off this 5. NSVT 10 beat run this AM K/Mg okay monitor on tele Full Code DVT pptx, Lovenox dispo: home, likely tomorrow. (needs to be monitored for NSVT x 24 hours)
[2020-03-21] MEDS: Enoxaparin Sodium 40 MG/0.4 ML SYRINGE SUBCUT (13:30)
--- NOTE | 2020-03-21 14:36 | MHC.CM.PN ---
CM met with Patient, per his request. Patient expressed his desire to be dc. RN explained that MD would like to monitor Patient 24 hours after experiencing some irregular heart beats this morning. Patient states that the Doctors and Nurses have been wonderful, but he would like to sign his release papers. RN and CM encouraged Patient to reconsider and stay over night. Patient appeared quite calm and just wants to be dc'd.
--- NOTE | 2020-03-21 17:14 | PC.NURSE ---
10 Beat NSVT noted on telemetry at 1700. Patient asymptomatic. Ambulating to bathroom. Md notified. No new orders at this time.
[2020-03-21] MEDS: Acetaminophen 325 MG TABLET 650 MG PO (20:18)
[2020-03-21] MEDS: carvediloL 12.5 MG TABLET PO (21:11)
[2020-03-22] MEDS: 0.9 % Sodium Chloride Flush 3 ML SYRINGE IVFLUSH ×2 (03:19→09:29)
[2020-03-22 03:26] VITALS: BP 107/76; PULSE 62; RESP 16; TEMP 37.1; O2SAT 97
--- NOTE | 2020-03-22 06:45 | PC.NURSE ---
2100 HS bp meds held last night per md d/t lower blood pressure. sbp 116, 12.5mg po coreg given. pt sinus sung overnight mostly in the 40's asymptomatic.
[2020-03-22 07:07] VITALS: BP 119/68; PULSE 55; RESP 18; TEMP 36.5; O2SAT 96
[2020-03-22] MEDS: carvediloL 12.5 MG TABLET PO (09:28)
[2020-03-22] MEDS: Sacubitril/Valsartan 97/103 1 TAB TABLET PO (09:28)
[2020-03-22] MEDS: Furosemide 20 MG TABLET PO (09:28)
--- NOTE | 2020-03-22 09:55 | PM.PNCARD ---
Subjective Subjective Date of Service: 03/22/20 Principal diagnosis: CP, uncontrolled HTN, Nonischemic CMP, HF, NSVT Interval history: Today he reports feeling great. No CP, sob, palpitations, dizziness. Ambulating in room. Last bereket Amlodipine, aldactone and entresto held due to BP on lower side. Review of Systems Review of Systems Yes all other systems are reviewed and are negative Constitutional: Denies frequent falls Denies dizziness Cardiovascular: Denies syncope, Denies palpitations and Denies dyspnea on exertion Respiratory: Denies chest congestion, Denies cough, Denies hemoptysis, Denies pain on inspiration and Denies dyspnea on exertion Gastrointestinal: Reports no additional gastrointestinal complaints and Denies abdominal pain Musculoskeletal: Reports no additional musculoskeletal complaints Denies Abnormal speech present, Denies confusion, Denies dizziness, Denies syncope and Denies frequent falls Psychiatric: Denies confusion Endocrine: Denies palpitations Physical Exam Vital Signs: Last Vital Signs Temp 97.7 F 03/22/20 07:07 Pulse 55 03/22/20 07:07 Resp 18 03/22/20 07:07 BP 119/68 03/22/20 07:07 Pulse Ox 96 03/22/20 07:07 Body Mass Index 33.2 Const General: No confusion Orientation/consciousness: No confusion HENMT Head: Yes normal to inspection Neck Neck: Yes normal visual inspection and Yes no JVD Resp Effort & Inspection: normal respiratory effort, able to speak in complete sentences and not labored Auscultation: clear to auscultation bilaterally, no crackles, no rales, no rhonchi and no wheezes Cardio Palpation: normal PMI Rate: regular rate Rhythm: regular rhythm Heart sounds: S1 normal heart sound present and S2 normal heart sound present Peripheral pulses: Peripheral pulses 2+ throughout GI Inspection: Yes normal to inspection Neuro General: No confusion Speech: No Abnormal speech present Extrem General: Yes normal to inspection and No edema Results Labs and Meds Result diagrams: 03/21/20 05:26 03/21/20 05:26 Progress Note: A&P Assessment and plan (1) Chest discomfort: Status: Acute Assessment and Plan: Resolved with BP control. No recurrent episodes since admission. No ACS. Meds being titrate for good BP control. (2) Uncontrolled hypertension: Status: Acute Assessment and Plan: Elevated on admit. Had been taking Carvedilol and Entresto once daily. He was diuresed and now back on daily po lasix. His Carvedilol was changed to BID yesterday. His Entresto was changed to BID yesterday however his BP was on low side and he did not get evening dose. This am BP 119/68. Will stop Amlodipine. Will change Entresto to low dose bid. Continue Carvedilol, Aldactone, lasix. Ongoing BP monitoring. (3) Congestive heart failure: Status: Acute Assessment and Plan: Evidence of mild fluid overload on admit. He was iniitally on IV lasix. Fluid balance neg 3 liters since admit. Resumed usual home PO lasix yesterday. No evidence of fluid overload on exam today. (4) NICM (nonischemic cardiomyopathy): Status: Acute Assessment and Plan: EF 20% on recent echo from [facility]. Pt states EF has been low for years . He follows with Dr Dotson at [facility] in [place]. Continue Carvedilol and entresto as above. (5) NSVT (nonsustained ventricular tachycardia): Status: Acute Assessment and Plan: Tele monitoring shows 3 episodes of brief NSVT since admit, longest 13 beats. No hx of presyncope, syncope. Documented EF 20%. K and Mg normal range. Unable to further titrate carvedilol due to resting rate in 50-60s. Will continue carvedilol 12.5mg bid. 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 Offered him Life Vest and he is agreeable. Will work on arrangements for Life vest, ideally applying prior to his discharge. Fall Risk Details Current Medications: Current Medications Generic Name Dose Route Start Last Admin Trade Name Freq PRN Reason Stop Dose Admin Acetaminophen 650 mg 03/20/20 10:23 03/21/20 20:18 Acetaminophen 325 Mg Tablet PO 650 mg Q6H PRN Administration Pain, Mild (Pain Scale 1-3) Carvedilol 12.5 mg 03/21/20 21:00 03/22/20 09:28 Carvedilol 12.5 Mg Tablet PO 12.5 mg BID NENA Administration Protocol Enoxaparin Sodium 40 mg 03/20/20 12:00 03/21/20 13:30 Enoxaparin Sodium 40 Mg/0.4 Ml Syringe SUBCUT 40 mg Q24H NENA Administration Furosemide 20 mg 03/22/20 09:00 03/22/20 09:28 Furosemide 20 Mg Tablet PO 20 mg DAILY NENA Administration Protocol Pharmacy Consult 1 each 03/20/20 07:57 Consult Rx Perform Med Rec MISCELLANE ONCE PRN Consult order Sodium Chloride 3 ml 03/20/20 16:00 03/22/20 09:29 0.9 % Sodium Chloride Flush 3 Ml Syringe IVFLUSH 3 ml QSHIFT NENA Administration Spironolactone 25 mg 03/20/20 21:00 03/21/20 21:12 Spironolactone 25 Mg Tablet PO Not Given BEDTIME NENA Protocol Time Spent With Patient Time: Total time spent is greater than 50% in coordination of care (as documented) at patient's floor/unit and/or counseling patient: Time with patient: 15 - 24 minutes
[2020-03-22 10:34] VITALS: BP 122/80; PULSE 70; RESP 18; TEMP 36.5; O2SAT 99
[2020-03-22] MEDS: Enoxaparin Sodium 40 MG/0.4 ML SYRINGE SUBCUT (10:54)
--- NOTE | 2020-03-22 11:01 | HO.PM.IMPN ---
Subjective Subjective Date of Service: 03/22/20 Interval History: feels well, had NSVT episdoes Cardiovascular Cardiovascular: Reports no additional cardiovascular complaints Respiratory Respiratory: Reports no additional respiratory complaints Physical Exam Vital Signs: Vital Signs: Last Vital Signs Temp 97.7 F 03/22/20 10:34 Pulse 70 03/22/20 10:34 Resp 18 03/22/20 10:34 BP 122/80 03/22/20 10:34 Pulse Ox 99 03/22/20 10:34 Body Mass Index 33.2 General: AO X 3, no acute distress Resp: CTA bilateral CVS: S1,S2,RRR GI: soft, non tender, non distended Neuro: motor grossly intact Psych: appropriate affect Objective Data Current Medications Generic Name Dose Route Start Last Admin Trade Name Freq PRN Reason Stop Dose Admin Acetaminophen 650 mg 03/20/20 10:23 03/21/20 20:18 Acetaminophen 325 Mg Tablet PO 650 mg Q6H PRN Administration Pain, Mild (Pain Scale 1-3) Carvedilol 12.5 mg 03/21/20 21:00 03/22/20 09:28 Carvedilol 12.5 Mg Tablet PO 12.5 mg BID NENA Administration Protocol Enoxaparin Sodium 40 mg 03/20/20 12:00 03/22/20 10:54 Enoxaparin Sodium 40 Mg/0.4 Ml Syringe SUBCUT 40 mg Q24H NENA Administration Furosemide 20 mg 03/22/20 09:00 03/22/20 09:28 Furosemide 20 Mg Tablet PO 20 mg DAILY NENA Administration Protocol Pharmacy Consult 1 each 03/20/20 07:57 Consult Rx Perform Med Rec MISCELLANE ONCE PRN Consult order Sacubitril/Valsartan 1 tab 03/22/20 21:00 Sacubitril/Valsartan 1 Tab Tablet PO BID NENA Protocol Sodium Chloride 3 ml 03/20/20 16:00 03/22/20 09:29 0.9 % Sodium Chloride Flush 3 Ml Syringe IVFLUSH 3 ml QSHIFT NENA Administration Spironolactone 25 mg 03/20/20 21:00 03/21/20 21:12 Spironolactone 25 Mg Tablet PO Not Given BEDTIME NENA Protocol Labs CBC & Chem 7: 03/21/20 05:26 03/21/20 05:26 Assessment and Plan (1) Congestive heart failure: Status: Acute Assessment and Plan: 59 yo M presented to the hospital with a 2 day history of progressive dyspnea, orthopnea and chest pressure. acute on chronic CHF with reduced EF (20%), reported to be non-ischemic, with NSVT diuresed well, continue lasix 20 po stopped norvasc, hctz continue lower dose entresto, coreg 12.5 (cannot titrate up further due to sung) plan for lifevest Chest pressure / elevated HS trop-I due to BP resolved HS trop-I down trending cardiology on the case HTN improved continue current regime Prior history of renal infact was previously on OAC with coumadin, pt tells me he was taken off this Full Code DVT pptx, Lovenox
--- NOTE | 2020-03-22 14:43 | P.DS_ITS ---
DS: Providers Provider Date of admission: 03/20/20 08:26 Primary care physician: Gemini Fuentes MD Consults: 03/20/20 10:23 Consult to Cardiology Routine Consulting Provider: Ovidio Bobo Reason for consultation: chest pressure, chf DS: Diagnosis Discharge Diagnosis (1) Congestive heart failure: Status: Acute (2) NICM (nonischemic cardiomyopathy): Status: Acute (3) NSVT (nonsustained ventricular tachycardia): Status: Acute (4) Uncontrolled hypertension: Status: Acute (5) Chest discomfort: Status: Acute DS: Medications Discharge Medications Home Medications: Home Medications Medication Instructions Recorded Confirmed furosemide 20 mg PO BEDTIME 03/20/20 03/20/20 spironolactone 25 mg PO BEDTIME 03/20/20 03/20/20 Previous Rx's Medication Instructions Recorded carvedilol 12.5 mg PO BID #60 tab 03/22/20 sacubitril-valsartan [Entresto] 1 tab PO BID #60 tab 03/22/20 DS: Summary Hospital Course Hospital Course: Patient was admitted for acute on chronic systolic CHF. He was diuresed well. He was also noted to have nonsustained ventricular tachycardia. His most recent echocardiogram showed an EF of 20%. He was seen by Cardiology recommended stopping amlodipine and hydrochlorothiazide as his blood pressure would not tolerate. Carvedilol was decreased from 25 mg b.i.d. to 12.5 mg b.i.d. due to low blood pressure and bradycardia. His Entresto was decreased to 24-26 b.i.d. he was continued on Aldactone. Patient was initially agreeable to get LifeVest. As transition to discussion with his on site coordinator about AICD. However, patient then change his mind and does not want wait. He is aware of risks of leaving without defibrillator, including lethal cardiac arrhythmia. He would like to be discharged anyways. He will follow up with his on site coordinator in [place], Dr. inder Bernardo. Time Spent with Patient Time attestation: Total time spent providing and/or coordinating discharge services: Physical Exam Vital Signs: Vital Signs: Last Vital Signs Temp 97.7 F 03/22/20 10:34 Pulse 70 03/22/20 10:34 Resp 18 03/22/20 10:34 BP 122/80 03/22/20 10:34 Pulse Ox 99 03/22/20 10:34 Body Mass Index 33.2 General: AO X 3, no acute distress Resp: CTA bilateral CVS: S1,S2,RRR GI: soft, non tender, non distended Neuro: motor grossly intact Psych: appropriate affect DS: Data Data Completed and Pending Labs on day of discharge: 03/20/20 05:01 ECG 12 lead EKG Stat EKG Documentation DIRECTED 03/20/20 05:02 Albuterol/Iprat 2.5/0.5MG 3 ML [Duoneb] 3 ml INHALE ONCE ONE 03/20/20 05:15 B Type Natriuretic Peptide Stat Basic Metabolic Panel Stat Complete Blood Count Auto Diff Stat Hold Lt Blue - Possible Coag Stat Liver Panel Stat Troponin-I High Sensitivity Stat 03/20/20 05:57 XR chest 1V Stat 03/20/20 06:05 Furosemide [Lasix] 80 mg IVPUSH ONCE ONE Nitroglycerin 2 % Oint [Nitro-Bid] 0.5 inch TRANSDERMA ONCE ONE 03/20/20 06:06 Aspirin 162 mg PO ONCE ONE 03/20/20 08:16 COVID-19 ID NOW (Rojas) Stat 03/20/20 08:20 Transfer Order Routine 03/20/20 08:44 Troponin-I High Sensitivity Stat 03/20/20 09:03 carvediloL [Coreg] 12.5 mg PO ONCE ONE 03/20/20 11:08 amLODIPine Besylate [Norvasc] 5 mg PO ONCE ONE 03/20/20 12:15 hydroCHLOROthiazide [Microzide] 25 mg PO DAILY 03/20/20 18:00 Furosemide [Lasix] 40 mg IVPUSH BID@0900,1800 03/20/20 21:00 Sacubitril/Valsartan 97/103 [Entresto 97/103 mg] 1 tab PO BEDTIME amLODIPine Besylate [Norvasc] 10 mg PO BEDTIME carvediloL [Coreg] 25 mg PO BEDTIME 03/21/20 05:26 Basic Metabolic Panel DAILY@0600 Complete Blood Count no Diff DAILY@0600 Magnesium Routine 03/21/20 21:00 Sacubitril/Valsartan 97/103 [Entresto 97/103 mg] 1 tab PO BID Laboratory Last Values WBC 4.7 X10*3/uL (4.8-10.8) L 03/21/20 05:26 RBC 5.24 X10*6/uL (4.60-5.80) 03/21/20 05:26 Hgb 16.1 g/dl (14.0-18.0) 03/21/20 05:26 Hct 46.4 % (42-52) 03/21/20 05:26 MCV 88.5 fL (80-98) 03/21/20 05:26 MCH 30.7 pg (27.0-33.0) 03/21/20 05:26 MCHC 34.7 g/dl (31.0-36.0) 03/21/20 05:26 RDW 12.2 % (11.0-16.0) 03/21/20 05:26 Plt Count 327 X10*3/uL (160-400) 03/21/20 05:26 MPV 10.9 fL (9.4-12.4) 03/21/20 05:26 Immature Gran % (Auto) 0.2 % (0.0-0.4) 03/20/20 05:15 Neut % (Auto) 45.4 % (45-73) 03/20/20 05:15 Lymph % (Auto) 39.2 % (20-40) 03/20/20 05:15 [place] % (Auto) 11.2 % (2-11) H 03/20/20 05:15 Eos % (Auto) 3.2 % (0-4) 03/20/20 05:15 Baso % (Auto) 0.8 % (0-2) 03/20/20 05:15 Lymph # (Auto) 2.4 X10*3/uL (1.2-4.9) 03/20/20 05:15 [place] # (Auto) 0.7 X10*3/uL (0.1-1.2) 03/20/20 05:15 Eos # (Auto) 0.2 X10*3/uL (0.0-0.4) 03/20/20 05:15 Baso # (Auto) 0.1 X10*3/uL (0.0-0.2) 03/20/20 05:15 Abs Immat Gran (auto) 0.01 X10*3/uL (0.00-0.03) 03/20/20 05:15 Absolute Neuts (auto) 2.8 X10*3/uL (2.0-8.3) 03/20/20 05:15 Absolute Nucleated RBC 0.000 X10*3/uL (0.0-0.012) 03/21/20 05:26 Nucleated RBC % (auto) 0.0 /100WBC (0.0-0.2) 03/21/20 05:26 Hold Blue Top SEE NOTE 03/20/20 05:15 Sodium 138 mmol/L (135-145) 03/21/20 05:26 Sodium Cancelled 03/21/20 05:26 Potassium 4.3 mmol/l (3.3-5.1) 03/21/20 05:26 Potassium Cancelled 03/21/20 05:26 Chloride 101 mmol/L (96-108) 03/21/20 05:26 Chloride Cancelled 03/21/20 05:26 Carbon Dioxide 26 mmol/L (22-29) 03/21/20 05:26 Carbon Dioxide Cancelled 03/21/20 05:26 Anion Gap 15 (12-20) 03/21/20 05:26 Anion Gap Cancelled 03/21/20 05:26 BUN 28 mg/dL (9-16) H 03/21/20 05:26 BUN Cancelled 03/21/20 05:26 Creatinine 1.41 mg/dL (0.5-1.4) H 03/21/20 05:26 Creatinine Cancelled 03/21/20 05:26 Estim Creat Clear Calc 70.7 03/21/20 05:26 Estim Creat Clear Calc Cancelled 03/21/20 05:26 Estimated GFR 51 03/21/20 05:26 Estimated GFR Cancelled 03/21/20 05:26 Random Glucose 113 mg/dL (60-115) 03/21/20 05:26 Random Glucose Cancelled 03/21/20 05:26 Calcium 9.2 mg/dL (8.4-10.2) 03/21/20 05:26 Calcium Cancelled 03/21/20 05:26 Magnesium 2.3 mg/dL (1.6-2.6) 03/21/20 05:26 Magnesium Cancelled 03/21/20 05:26 Total Bilirubin 0.4 mg/dL (0.0-1.0) 03/20/20 05:15 Direct Bilirubin 0.2 mg/dL (0.0-0.5) 03/20/20 05:15 AST 17 U/L (5-37) 03/20/20 05:15 ALT 16 U/L (0-40) 03/20/20 05:15 Alkaline Phosphatase 87 U/L (39-117) 03/20/20 05:15 Troponin I High Sens 46.9 ng/L (<3.5-35.0) H 03/20/20 08:44 B-Natriuretic Peptide 402 pg/mL (<100) H 03/20/20 05:15 Total Protein 6.7 g/dL (6.5-8.0) 03/20/20 05:15 Albumin 4.1 g/dL (3.5-5.0) 03/20/20 05:15 COVID-19 ([facility]) Negative (Negative) 03/20/20 08:16 COVID-19 Clin Com See Note 03/20/20 08:16 Discharge Plan Discharge Patient Disposition: Home, Self-Care Referrals: Gemini Kent MD [Primary Care Provider] - Discharge Medications: New carvedilol 12.5 mg Tablet 12.5 mg PO BID Qty: 60 RF: 0 Entresto 24-26 mg Tablet 1 tab PO BID Qty: 60 RF: 0 Continued spironolactone 25 mg Tablet 25 mg PO BEDTIME RF: 0 furosemide 20 mg Tablet 20 mg PO BEDTIME RF: 0 Discontinued carvedilol 25 mg Tablet 25 mg PO BEDTIME RF: 0 amlodipine 10 mg Tablet 10 mg PO BEDTIME RF: 0 Entresto 97-103 mg Tablet 1 tab PO BEDTIME RF: 0 Discharge Orders: Discharge Order (Routine); Ordered 03/22/20 Ordered By: Juan De Guzman Activity on Discharge: As tolerated Visit Report Forms: Patient Portal Discharge page Care Plan Goals: mange chf Health Concerns: chf Plan of Treatment: see med rec changes, follow up with cardiology for lifevest/aicd
--- NOTE | 2020-03-22 15:21 | MHC.CM.PN ---
pt dcd home with life vest
--- NOTE | 2020-03-23 08:42 | MHC.CM.PN ---
Received VM on 03/23 from Eder Morales lifevest access representative. Per Javid, pt's Lifevest order from Florencia Nicholas, Cardiology was not valid as the length of use was not correct. In addition, the pt will need prior auth [facility] to obtain vest. Javid has reached out to Florencia Nicholas for clarification and to relay the above info but has not received a call back. Review of the EMR notes pt was aware of the risk of discharging to home without the vest but opted to do so regardless. 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
== END 2020-03-22 15:45 | disposition home or self-care (01) | DRG 292 ==
LOC: HO.ED 06:25 → HO.IMC 08:41
PROVIDERS: Admitting Provider Family Medicine; Emergency Provider Emergency Medicine; PCP Internal Medicine; Visit Provider Internal Medicine
DX: I11.0 Hypertensive heart disease with heart failure (principal); I47.1 Supraventricular tachycardia; I42.8 Other cardiomyopathies; I50.23 Acute on chronic systolic (congestive) heart failure; Z20.828 Contact with and (suspected) exposure to other viral communicable diseases; Z79.899 Other long term (current) drug therapy
CPT/HCPCS: 36415; 71045; 80048; 80076; 83735; 83880; 84484; 85025; 85027; 87635; 93005; 94640; 96374; 99284; 99291; J1650; J1940

== ENCOUNTER 2020-09-13 03:08 | Emergency (ER) | payer OTHER, SELFPAY ==
--- NOTE | ~2020-09-13 | CT_ITS ---
EXAMINATION: CT ANGIOGRAM OF THE CHEST WITH AND WITHOUT CONTRAST (CT PULMONARY ANGIOGRAM FOR PE) CLINICAL INFORMATION: Reason for Exam elevated ddimer, pleuritic chest pain COMPARISON: 08/01/2016 TECHNIQUE: Prior to contrast administration, noncontrast localization images were obtained. Subsequently, multidetector volumetric imaging was performed from the thoracic inlet to below the diaphragms following the administration of 65 mL Omnipaque 350 intravenous contrast. No contrast reaction reported Sagittal, coronal, and MIP oblique sagittal reformatted images were obtained on the CT workstation, uploaded to PACS, and reviewed. This CT examination was performed using dose optimization techniques as appropriate, variously including the following: *Automated exposure control *Adjustment of mA and/or kV according to patient size (this includes techniques or standardized protocols for targeted exams where dose is matched to indication/reason for exam; i.e. extremities or head) *Use of iterative reconstruction technique Total exam dose-length product 470 mGy-cm FINDINGS: QUALITY OF STUDY/CONTRAST BOLUS: Satisfactory. PULMONARY ARTERIES: No central or segmental pulmonary emboli. LUNG: No regions of consolidation bilaterally. Mild subsegmental atelectasis bilaterally. There is mild interlobular septal thickening towards the lung periphery, consistent with mild interstitial edema. PLEURA: Small pleural effusions. No pneumothorax. MEDIASTINUM: The visualized thyroid gland is unremarkable. Several scattered mediastinal lymph nodes measuring up to the upper limits of normal in size, nonspecific. There is mild cardiomegaly with trace pericardial effusion. CHEST WALL/AXILLA: No axillary or internal mammary lymphadenopathy. OSSEOUS STRUCTURES: There are changes of diffuse idiopathic skeletal hyperostosis in the spine. UPPER ABDOMEN: There is some reflux of contrast into the hepatic veins which can be seen with elevated right heart pressures. Cholelithiasis is noted. Small hypodensity in the right hepatic lobe favors a cyst. CT/CT angio chest PE protocol IMPRESSION: 1. No pulmonary embolus identified. 2. Mild interstitial edema. Small pleural effusions. 3. Mild cardiomegaly with trace pericardial effusion. Reflux of contrast into the hepatic vein suggests elevated right heart pressures. 4. Cholelithiasis. VTE: negative
--- NOTE | ~2020-09-13 | XR_ITS ---
EXAMINATION: XR CHEST CLINICAL INFORMATION: Pain COMPARISON: 03/20/2020 TECHNIQUE: Frontal view of the chest was obtained. FINDINGS: Left-sided AICD lead tip overlies the right ventricle. Lung volumes are symmetric. No focal consolidation is seen. Redemonstrated central vascular and interstitial prominence, similar to prior. No evidence of pneumothorax or pleural effusion. Cardiac silhouette remains mildly enlarged. No acute osseous findings are seen. XR/XR chest 1V IMPRESSION: Persistent central vascular and interstitial prominence. No acute consolidation.
--- NOTE | 2020-09-13 03:15 | ED_ITS ---
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 Mode of arrival: ambulatory Limitations: no limitations History of Present Illness MD complaint: other (epigastric pain reports spasm in that area) Onset (ago): day(s) (started on 09/12 at 6pm) Timing of current episode: constant Prior episodes: Yes Onset: during rest Pain location: epigastric Pain radiation: none Severity: mild Quality: other (spasm) Relieving factors: nothing Exacerbating factors: palpation and movement Context: other (hx of similar episode in the past) Associated symptoms: dyspnea Treatment prior to arrival: none Related Data Home Medications Medication Instructions Recorded Confirmed furosemide 20 mg PO BEDTIME 03/20/20 03/20/20 spironolactone 25 mg PO BEDTIME 03/20/20 03/20/20 Previous Rx's Medication Instructions Recorded carvedilol [Coreg] 12.5 mg PO BID #60 tab 03/23/20 sacubitril-valsartan [Entresto] 1 tab PO BID #60 tab 03/23/20 cyclobenzaprine 10 mg PO TID PRN #14 tab 09/13/20 Allergies Allergy/AdvReac Type Severity Reaction Status Date / Time No Known Allergies Allergy Verified 09/13/20 03:21 [No Known Allergies*] Review of Systems Review of Systems: Constitutional : No Weight loss, No Fever, No Chills ENT/Mouth : No sore throat, No Rhinorrhea Eyes: No Eye Pain, No Swelling Cardiovascular : no Chest Pain, no SOB, no Dyspnea on Exertion, No Orthopnea, No Edema, No Palpitations Respiratory : No Cough, No Sputum Gastrointestinal : no Nausea, No Vomiting, No Diarrhea, pos abdominal Pain, No Hematochezia, No Melena Genitourinary : No Dysuria, No Urinary Frequency Musculoskeletal : No joint pain, No Myalgias, No Joint Swelling Skin : No Skin Lesions, No rash Neuro : No Weakness, No Numbness, No Dizziness, No Headache Psych : No Anxiety/Panic, No Depression Heme/Lymph: No Bruising, No Lymphadenopathy Endocrine : No Polyuria, No Polydipsia All other systems reviewed and are negative [facility] Past Medical History Attestation statement: The following information was validated with the patient. Medical History (Updated 09/13/20 @ 05:26 by Daly Ferrari DO) Cardiac defibrillator in place CHF (congestive heart failure) Hypertension Renal infarct Family History Family History (Updated 03/20/20 @ 08:37 by Kaiden Lundy MD) Other CAD (coronary artery disease) Social History Social History Household Members: Significant Other Housing: House Alcohol intake: never Smoking Status: Never smoker Advance Directives: Yes Advance Directives on File: Yes Advance Directives Date on File: 03/20/20 service: Yes Current occupational status: employed Physical Exam Vital Signs: Vital Signs: Last Vital Signs Temp 98.0 F 09/13/20 03:21 Pulse 66 09/13/20 03:21 Resp 18 09/13/20 03:21 BP 188/121 H 09/13/20 03:21 Pulse Ox 99 09/13/20 03:21 Body Mass Index 39.4 Appearance: Alert. Oriented X3. No acute distress. Eyes: Pupils equal, round and reactive to light. ENT: Pharynx normal. Neck: Normal inspection. Neck supple. CVS: Normal heart rate and rhythm. Pulses normal. Chest: mild lower sternal pain Respiratory: No respiratory distress. Breath sounds normal. Abdomen: Soft and very mild superficial pain midline epigastric area Skin: Skin warm and dry. Normal skin color. Normal skin turgor. Extremities: No lower extremity edema. No calf ttp Neuro: Oriented X 3. No motor deficit. No sensory deficit. Course Course Course Narrative: elevated ddimer - PE study ordered no PE, BP down to 160/90s some relief with morphine will try flexeril, repeat trop pending at 6am, BNP around baseline, no orthopnea, 98% on RA signed out pending further workup MDM - Chest Pain MDM Narrative Medical decision making narrative: 60 yo male with epigastric pain like he pulled a muscle which he thinks he did at work - at this time pain mild to palpa tion no other GI symptoms but does hurt to take a deep breath, labs, troponin x 1, CXR, EKG, IV morphine for pain, had similar episode in past dx with muscle spasm Lab Data Result diagrams: 09/13/20 03:46 09/13/20 03:46 Labs: Lab Results 09/13/20 09/13/20 09/13/20 Range/Units 03:46 03:46 03:46 WBC 7.2 (4.8-10.8) X10*3/uL RBC 4.63 (4.60-5.80) X10*6/uL Hgb 14.0 (14.0-18.0) g/dl Hct 41.6 L (42-52) % MCV 89.8 (80-98) fL MCH 30.2 (27.0-33.0) pg MCHC 33.7 (31.0-36.0) g/dl RDW 12.5 (11.0-16.0) % Plt Count 277 (160-400) X10*3/uL MPV 10.3 (9.4-12.4) fL Immature Gran % (Auto) 0.3 (0.0-0.4) % Neut % (Auto) 63.1 (45-73) % Lymph % (Auto) 23.2 (20-40) % [place] % (Auto) 10.3 (2-11) % Eos % (Auto) 2.7 (0-4) % Baso % (Auto) 0.4 (0-2) % Lymph # (Auto) 1.7 (1.2-4.9) X10*3/uL [place] # (Auto) 0.7 (0.1-1.2) X10*3/uL Eos # (Auto) 0.2 (0.0-0.4) X10*3/uL Baso # (Auto) 0.0 (0.0-0.2) X10*3/uL Abs Immat Gran (auto) 0.02 (0.00-0.03) X10*3/uL Absolute Neuts (auto) 4.5 (2.0-8.3) X10*3/uL Absolute Nucleated RBC 0.000 (0.0-0.012) X10*3/uL Nucleated RBC % (auto) 0.0 (0.0-0.2) /100WBC D-Dimer 428 NG/ML Sodium 140 (135-145) mmol/L Potassium 4.8 (3.3-5.1) mmol/L Chloride 108 (96-108) mmol/L Carbon Dioxide 26 (22-29) mmol/L Anion Gap 11 L (12-20) BUN 20 H (9-16) mg/dL Creatinine 1.46 H (0.5-1.4) mg/dL Estim Creat Clear Calc 61.3 Estimated GFR 49 Random Glucose 112 (60-115) mg/dL Calcium 9.0 (8.4-10.2) mg/dL Magnesium 2.2 (1.6-2.6) mg/dL Total Bilirubin 0.8 (0.0-1.0) mg/dL Direct Bilirubin 0.3 (0.0-0.5) mg/dL AST 23 (5-37) U/L ALT 24 (0-40) U/L Alkaline Phosphatase 100 (39-117) U/L Troponin I High Sens (<3.5-35.0) ng/L B-Natriuretic Peptide (<100) pg/mL Total Protein 6.7 (6.5-8.0) g/dL Albumin 4.1 (3.5-5.0) g/dL Lipase 34 (8-78) U/L 09/13/20 Range/Units 03:46 WBC (4.8-10.8) X10*3/uL RBC (4.60-5.80) X10*6/uL Hgb (14.0-18.0) g/dl Hct (42-52) % MCV (80-98) fL MCH (27.0-33.0) pg MCHC (31.0-36.0) g/dl RDW (11.0-16.0) % Plt Count (160-400) X10*3/uL MPV (9.4-12.4) fL Immature Gran % (Auto) (0.0-0.4) % Neut % (Auto) (45-73) % Lymph % (Auto) (20-40) % [place] % (Auto) (2-11) % Eos % (Auto) (0-4) % Baso % (Auto) (0-2) % Lymph # (Auto) (1.2-4.9) X10*3/uL [place] # (Auto) (0.1-1.2) X10*3/uL Eos # (Auto) (0.0-0.4) X10*3/uL Baso # (Auto) (0.0-0.2) X10*3/uL Abs Immat Gran (auto) (0.00-0.03) X10*3/uL Absolute Neuts (auto) (2.0-8.3) X10*3/uL Absolute Nucleated RBC (0.0-0.012) X10*3/uL Nucleated RBC % (auto) (0.0-0.2) /100WBC D-Dimer NG/ML Sodium (135-145) mmol/L Potassium (3.3-5.1) mmol/L Chloride (96-108) mmol/L Carbon Dioxide (22-29) mmol/L Anion Gap (12-20) BUN (9-16) mg/dL Creatinine (0.5-1.4) mg/dL Estim Creat Clear Calc Estimated GFR Random Glucose (60-115) mg/dL Calcium (8.4-10.2) mg/dL Magnesium (1.6-2.6) mg/dL Total Bilirubin (0.0-1.0) mg/dL Direct Bilirubin (0.0-0.5) mg/dL AST (5-37) U/L ALT (0-40) U/L Alkaline Phosphatase (39-117) U/L Troponin I High Sens 39.6 H* (<3.5-35.0) ng/L B-Natriuretic Peptide 505 H (<100) pg/mL Total Protein (6.5-8.0) g/dL Albumin (3.5-5.0) g/dL Lipase (8-78) U/L ECG Data ECG #1: Attestation: I personally reviewed and interpreted this ECG as follows: ECG interpretation date: 09/13/20 ECG interpretation time: 03:32 Interpretation: Rate: 76 Rhythm: NSR [place]: left Normal P waves. Normal BRUNO. wide QRS complex. ST T wave : inverted in lateral leads, no DANIELLA qTC: normal prior studies: no change Feb 2020 The study has been interpreted contemporaneously by me. . Discharge Plan Discharge Clinical Impression: Atypical chest pain Instructions: Epigastric Pain (ED) Additional Instructions: return to ED for any worsening symptoms or concerns Prescriptions: New cyclobenzaprine 10 mg tablet 10 mg PO TID PRN (Reason: muscle spasm) Qty: 14 RF: 0 No Action spironolactone 25 mg Tablet 25 mg PO BEDTIME RF: 0 furosemide 20 mg Tablet 20 mg PO BEDTIME RF: 0 carvedilol [Coreg] 12.5 mg tablet 12.5 mg PO BID Qty: 60 RF: 0 Entresto 24-26 mg tablet 1 tab PO BID Qty: 60 RF: 0 Referrals: Physician,Unknown [Primary Care Provider] - 2 days (if not better) Print Language: Argentine
[2020-09-13 03:21] VITALS: BP 188/121; PULSE 66; RESP 18; TEMP 36.7; O2SAT 99; BMI 39.4
[2020-09-13 03:51] LABS: Basophils Percent Auto 0.4 % (0-2); Eosinophils Absolute Auto 0.2 X10*3/uL (0.0-0.4); Eosinophils Percent Auto 2.7 % (0-4); Hematocrit 41.6 % (42-52); Imm Gran Abs Auto 0.02 X10*3/uL (0.00-0.03); Imm Gran Pct Auto 0.3 % (0.0-0.4); Lymphocytes Absolute Auto 1.7 X10*3/uL (1.2-4.9); Lymphocytes Percent Auto 23.2 % (20-40); MANUAL DIFF FLAG NO; Mean Corpuscular HGB Conc 33.7 g/dl (31.0-36.0); Mean Corpuscular Hemoglobin 30.2 pg (27.0-33.0); Mean Corpuscular Volume 89.8 fL (80-98); Mean Platelet Volume 10.3 fL (9.4-12.4); Monocytes Absolute Auto 0.7 X10*3/uL (0.1-1.2); Monocytes Percent Auto 10.3 % (2-11); Neutrophils Absolute Auto 4.5 X10*3/uL (2.0-8.3); Neutrophils Percent Auto 63.1 % (45-73); Platelet Count 277 X10*3/uL (160-400); Red Blood Count 4.63 X10*6/uL (4.60-5.80); Red Cell Distribution Width 12.5 % (11.0-16.0); White Blood Count 7.2 X10*3/uL (4.8-10.8)
[2020-09-13 04:03] LABS: D Dimer 428 NG/ML
[2020-09-13] MEDS: Morphine Sulfate 4 MG/ML CARTRIDGE IVPUSH (04:14)
[2020-09-13 04:24] LABS: Alanine Aminotransferase 24 U/L (0-40); Albumin Level 4.1 g/dL (3.5-5.0); Alkaline Phosphatase 100 U/L (39-117); Anion Gap 11 (12-20); Aspartate Amino Transferase 23 U/L (5-37); Bilirubin Direct 0.3 mg/dL (0.0-0.5); Bilirubin Total 0.8 mg/dL (0.0-1.0); Blood Urea Nitrogen 20 mg/dL (9-16); Carbon Dioxide 26 mmol/L (22-29); Chloride 108 mmol/L (96-108); Creatinine Clr Calc Pharmacy 61.3; Estimated Glomerular Filt Rate 49; Glucose Random 112 mg/dL (60-115); Lipase 34 U/L (8-78); Magnesium 2.2 mg/dL (1.6-2.6); Potassium 4.8 mmol/L (3.3-5.1); Sodium 140 mmol/L (135-145); Total Protein 6.7 g/dL (6.5-8.0)
[2020-09-13 04:34] LABS: B Type Natriuretic Peptide 505 pg/mL (<100); Troponin-I High Sensitivity 39.6 ng/L (<3.5-35.0)
[2020-09-13] MEDS: iohexoL 350 MG/ML 100 ML INFUS..BTL 65 ML IV (04:44)
[2020-09-13] MEDS: ondansetron HCL 4 MG/2 ML VIAL IVPUSH (06:33)
[2020-09-13] MEDS: Cyclobenzaprine HCl 10 MG TABLET PO (06:33)
[2020-09-13 06:45] VITALS: BP 185/106; PULSE 69; RESP 13; O2SAT 99
[2020-09-13 07:06] VITALS: BP 174/111; PULSE 72; RESP 16; O2SAT 98
[2020-09-13 07:14] LABS: Troponin-I High Sensitivity 27.7 ng/L (<3.5-35.0)
[2020-09-13 07:54] VITALS: BP 165/111; PULSE 77
[2020-09-13] MEDS: carvediloL 6.25 MG TABLET PO (07:54)
--- NOTE | 2020-09-13 07:56 | ECG_ITS ---
Test Reason : CHESTPAIN Blood Pressure : / mmHG Vent. Rate : 076 BPM Atrial Rate : 076 BPM P-R Int : 156 ms QRS Dur : 124 ms QT Int : 422 ms P-R-T Axes : 071 -18 107 degrees QTc Int : 474 ms Sinus rhythm with occasional Premature ventricular complexes Non-specific intra-ventricular conduction delay T wave abnormality, consider lateral ischemia Abnormal ECG When compared with ECG of 20-MAR-2020 05:39, Nonspecific T wave abnormality no longer evident in Anterior leads Referred By: Thierry Guillory Electronically Signed By:KAILYN MUHAMMAD MD
== END 2020-09-13 08:04 | disposition home or self-care (01) ==
PROVIDERS: Emergency Medicine; Emergency Provider Emergency Medicine Emergency Medical Services
DX: R07.89 Other chest pain (principal); R06.02 Shortness of breath; R10.13 Epigastric pain; Z79.899 Other long term (current) drug therapy
CPT/HCPCS: 36415; 71045; 71275; 80048; 80076; 83690; 83735; 83880; 84484; 85025; 85379; 93005; 96365; 96375; 99284; J2270; J2405; Q9967

== ENCOUNTER 2020-10-04 08:08 | Emergency (ER) | payer OTHER, SELFPAY ==
--- NOTE | ~2020-10-04 | XR_ITS ---
EXAMINATION: XR CHEST CLINICAL INFORMATION: Dyspnea. COMPARISON: Chest 07/14/2020 TECHNIQUE: Frontal view of the chest was obtained. FINDINGS: The lungs are well-expanded and clear. The heart size and pulmonary vascularity is normal. There is a unipolar pacer electrode in the right ventricle. Mild spondylosis dorsal spine. No lytic process. XR/XR chest 1V IMPRESSION: Unremarkable chest examination.
[2020-10-04 08:30] VITALS: BP 172/102; PULSE 78; RESP 20; TEMP 37.1; O2SAT 100; BMI 39.5
--- NOTE | 2020-10-04 08:33 | ED_ITS ---
HPI - SOB/Dyspnea General Chief Complaint: Dyspnea Stated Complaint: sob Time Seen by Provider: 10/04/20 08:25 Source: patient and clinical statistics manager Mode of arrival: ambulatory Limitations: no limitations History of Present Illness HPI Narrative: 60 yo male with hx of NSVT, HTN, NICM, CHF with AICD, here with c/o chest tightness and COREA since yesterday also worse with laying flat, reports compliance with medications, seen at [facility] [place] waiting room negative COVID test only left prior to being seen. MD elicited complaint: shortness of breath and chest pain Pertinent past history: congestive heart failure Onset (ago): day(s) (yesterday) Timing: intermittent Severity: moderate Exacerbating factors: lying flat and exertion Relieving factors: rest Known history of: congestive heart failure Associated symptoms: chest pain and orthopnea Treatment prior to arrival: none Related Data Home Medications Medication Instructions Recorded Confirmed furosemide 20 mg PO BEDTIME 03/20/20 03/20/20 spironolactone 25 mg PO BEDTIME 03/20/20 03/20/20 Previous Rx's Medication Instructions Recorded carvedilol [Coreg] 12.5 mg PO BID #60 tab 03/23/20 sacubitril-valsartan [Entresto] 1 tab PO BID #60 tab 03/23/20 cyclobenzaprine 10 mg PO TID PRN #14 tab 09/13/20 furosemide [Lasix] 40 mg PO DAILY 3 Days #3 tab 10/04/20 Allergies Allergy/AdvReac Type Severity Reaction Status Date / Time No Known Allergies Allergy Verified 09/13/20 03:21 [No Known Allergies*] Review of Systems Review of Systems: Constitutional : No Weight loss, No Fever, No Chills ENT/Mouth : No sore throat, No Rhinorrhea Eyes: No Eye Pain, No Swelling Cardiovascular : pos Chest Pain, pos SOB, pos Dyspnea on Exertion, pos Orthopnea, No Edema, No Palpitations Respiratory : No Cough, No Sputum Gastrointestinal : no Nausea, No Vomiting, No Diarrhea, No abdominal Pain, No Hematochezia, No Melena Genitourinary : No Dysuria, No Urinary Frequency Musculoskeletal : No joint pain, No Myalgias, No Joint Swelling Skin : No Skin Lesions, No rash Neuro : No Weakness, No Numbness, No Dizziness, No Headache Psych : No Anxiety/Panic, No Depression Heme/Lymph: No Bruising, No Lymphadenopathy Endocrine : No Polyuria, No Polydipsia All other systems reviewed and are negative [facility] Past Medical History Attestation statement: The following information was validated with the patient. Medical History Cardiac defibrillator in place CHF (congestive heart failure) Hypertension Renal infarct Family History Family History (Updated 03/20/20 @ 08:37 by Kaiden Lundy MD) Other CAD (coronary artery disease) Social History Social History Household Members: Significant Other Housing: House Do you presently have visiting nurse or other home services: No Alcohol intake: never Patient Tobacco Use Status: Never used Tobacco Use of substances other than those prescribed or required for medical reasons: No Advance Directives: Yes Advance Directives on File: Yes Advance Directives Date on File: 03/20/20 service: Yes Current occupational status: employed Physical Exam Vital Signs: Vital Signs: Last Vital Signs Temp 97.6 F 10/04/20 12:05 Pulse 77 10/04/20 12:57 Resp 19 10/04/20 12:57 BP 164/99 H 10/04/20 12:57 Pulse Ox 99 10/04/20 12:57 Body Mass Index 39.5 Appearance: Alert. Oriented X3. No acute distress. Eyes: Pupils equal, round and reactive to light. ENT: Pharynx normal. Neck: Normal inspection. Neck supple. CVS: Normal heart rate and rhythm. Pulses normal. Respiratory: No respiratory distress. Breath sounds normal. Abdomen: Soft and nontender. Skin: Skin warm and dry. Normal skin color. Normal skin turgor. Extremities: No lower extremity edema. No calf ttp Neuro: Oriented X 3. No motor deficit. No sensory deficit. Course Course Course Narrative: trop flat, BNP at baseline, reports he is still worried about orthopnea already given PO and IV lasix, will lay flat and monitor O2, I do not think he needs admission at this time he is clinically not in distress and has no O2 requirement laying flat with no distress, no increased work of breathing and sat is 99% on RA, can be DC at home with increase in lasix MDM - SOB/Dyspnea MDM Narrative Medical decision making narrative: 60 yo male with hx of NSVT, HTN, NICM, CHF with AICD, here with c/o chest tightness and COREA since yesterday also worse with laying flat, reports compliance with medications, seen at [facility] waiting room negative COVID test only left prior to being seen at this time could be his CHF vs his hx of uncontrolled HTN - at this time PO lasix, EKG< CXR, troponin, nitro paste given HTN, dispo per results and findings, hx of similar presentations in the past Lab Data Result diagrams: 10/04/20 08:48 10/04/20 08:48 Labs: Lab Results 10/04/20 10/04/20 10/04/20 Range/Units 08:48 08:48 08:48 WBC 5.4 (4.8-10.8) X10*3/uL RBC 4.31 L (4.60-5.80) X10*6/uL Hgb 13.0 L (14.0-18.0) g/dl Hct 38.6 L (42-52) % MCV 89.6 (80-98) fL MCH 30.2 (27.0-33.0) pg MCHC 33.7 (31.0-36.0) g/dl RDW 12.5 (11.0-16.0) % Plt Count 306 (160-400) X10*3/uL MPV 10.6 (9.4-12.4) fL Immature Gran % (Auto) 0.6 H (0.0-0.4) % Neut % (Auto) 55.3 (45-73) % Lymph % (Auto) 29.3 (20-40) % Heard % (Auto) 10.6 (2-11) % Eos % (Auto) 3.5 (0-4) % Baso % (Auto) 0.7 (0-2) % Lymph # (Auto) 1.6 (1.2-4.9) X10*3/uL Heard # (Auto) 0.6 (0.1-1.2) X10*3/uL Eos # (Auto) 0.2 (0.0-0.4) X10*3/uL Baso # (Auto) 0.0 (0.0-0.2) X10*3/uL Abs Immat Gran (auto) 0.03 (0.00-0.03) X10*3/uL Absolute Neuts (auto) 3.0 (2.0-8.3) X10*3/uL Absolute Nucleated RBC 0.000 (0.0-0.012) X10*3/uL Nucleated RBC % (auto) 0.0 (0.0-0.2) /100WBC PT (10.8-13.0) SEC INR (0.9-1.1) APTT (24.1-38.0) SEC Sodium 142 (135-145) mmol/L Potassium 4.5 (3.3-5.1) mmol/L Chloride 111 H (96-108) mmol/L Carbon Dioxide 26 (22-29) mmol/L Anion Gap 10 L (12-20) BUN 24 H (9-16) mg/dL Creatinine 1.60 H (0.5-1.4) mg/dL Estim Creat Clear Calc 56.0 Estimated GFR 44 Random Glucose 119 H (60-115) mg/dL Calcium 9.1 (8.4-10.2) mg/dL Magnesium (1.6-2.6) mg/dL Total Bilirubin (0.0-1.0) mg/dL Direct Bilirubin (0.0-0.5) mg/dL AST (5-37) U/L ALT (0-40) U/L Alkaline Phosphatase (39-117) U/L Troponin I High Sens (<3.5-35.0) ng/L B-Natriuretic Peptide 509 H (<100) pg/mL Total Protein (6.5-8.0) g/dL Albumin (3.5-5.0) g/dL COVID-19 ([facility]) (Negative) COVID-19 Clin Com 10/04/20 10/04/20 10/04/20 Range/Units 08:48 08:48 08:48 WBC (4.8-10.8) X10*3/uL RBC (4.60-5.80) X10*6/uL Hgb (14.0-18.0) g/dl Hct (42-52) % MCV (80-98) fL MCH (27.0-33.0) pg MCHC (31.0-36.0) g/dl RDW (11.0-16.0) % Plt Count (160-400) X10*3/uL MPV (9.4-12.4) fL Immature Gran % (Auto) (0.0-0.4) % Neut % (Auto) (45-73) % Lymph % (Auto) (20-40) % Heard % (Auto) (2-11) % Eos % (Auto) (0-4) % Baso % (Auto) (0-2) % Lymph # (Auto) (1.2-4.9) X10*3/uL Heard # (Auto) (0.1-1.2) X10*3/uL Eos # (Auto) (0.0-0.4) X10*3/uL Baso # (Auto) (0.0-0.2) X10*3/uL Abs Immat Gran (auto) (0.00-0.03) X10*3/uL Absolute Neuts (auto) (2.0-8.3) X10*3/uL Absolute Nucleated RBC (0.0-0.012) X10*3/uL Nucleated RBC % (auto) (0.0-0.2) /100WBC PT 13.0 (10.8-13.0) SEC INR 1.1 (0.9-1.1) APTT 36.8 (24.1-38.0) SEC Sodium (135-145) mmol/L Potassium (3.3-5.1) mmol/L Chloride (96-108) mmol/L Carbon Dioxide (22-29) mmol/L Anion Gap (12-20) BUN (9-16) mg/dL Creatinine (0.5-1.4) mg/dL Estim Creat Clear Calc Estimated GFR Random Glucose (60-115) mg/dL Calcium (8.4-10.2) mg/dL Magnesium 1.9 (1.6-2.6) mg/dL Total Bilirubin 0.7 (0.0-1.0) mg/dL Direct Bilirubin 0.3 (0.0-0.5) mg/dL AST 14 (5-37) U/L ALT 10 (0-40) U/L Alkaline Phosphatase 93 (39-117) U/L Troponin I High Sens 42.6 H* D (<3.5-35.0) ng/L B-Natriuretic Peptide (<100) pg/mL Total Protein 6.4 L (6.5-8.0) g/dL Albumin 3.9 (3.5-5.0) g/dL COVID-19 ([facility]) (Negative) COVID-19 Clin Com 10/04/20 10/04/20 Range/Units 08:48 11:53 WBC (4.8-10.8) X10*3/uL RBC (4.60-5.80) X10*6/uL Hgb (14.0-18.0) g/dl Hct (42-52) % MCV (80-98) fL MCH (27.0-33.0) pg MCHC (31.0-36.0) g/dl RDW (11.0-16.0) % Plt Count (160-400) X10*3/uL MPV (9.4-12.4) fL Immature Gran % (Auto) (0.0-0.4) % Neut % (Auto) (45-73) % Lymph % (Auto) (20-40) % Heard % (Auto) (2-11) % Eos % (Auto) (0-4) % Baso % (Auto) (0-2) % Lymph # (Auto) (1.2-4.9) X10*3/uL Heard # (Auto) (0.1-1.2) X10*3/uL Eos # (Auto) (0.0-0.4) X10*3/uL Baso # (Auto) (0.0-0.2) X10*3/uL Abs Immat Gran (auto) (0.00-0.03) X10*3/uL Absolute Neuts (auto) (2.0-8.3) X10*3/uL Absolute Nucleated RBC (0.0-0.012) X10*3/uL Nucleated RBC % (auto) (0.0-0.2) /100WBC PT (10.8-13.0) SEC INR (0.9-1.1) APTT (24.1-38.0) SEC Sodium (135-145) mmol/L Potassium (3.3-5.1) mmol/L Chloride (96-108) mmol/L Carbon Dioxide (22-29) mmol/L Anion Gap (12-20) BUN (9-16) mg/dL Creatinine (0.5-1.4) mg/dL Estim Creat Clear Calc Estimated GFR Random Glucose (60-115) mg/dL Calcium (8.4-10.2) mg/dL Magnesium (1.6-2.6) mg/dL Total Bilirubin (0.0-1.0) mg/dL Direct Bilirubin (0.0-0.5) mg/dL AST (5-37) U/L ALT (0-40) U/L Alkaline Phosphatase (39-117) U/L Troponin I High Sens 39.9 H* (<3.5-35.0) ng/L B-Natriuretic Peptide (<100) pg/mL Total Protein (6.5-8.0) g/dL Albumin (3.5-5.0) g/dL COVID-19 ([facility]) Negative (Negative) COVID-19 Clin Com See Note ECG Data Attestation: I personally reviewed and interpreted this ECG as follows: ECG interpretation date: 10/04/20 ECG interpretation time: 09:13 Interpretation: Rate: 71 Rhythm: NSR [place]: left, LVH Normal P waves. Normal BRUNO. NSIVCD ST T wave : no DANIELLA< inverted I and aVL, V5-V6 qTC: normal prior studies: no acute ischemia unchanged from august 2020 The study has been interpreted contemporaneously by me. . Discharge Plan Discharge Clinical Impression: Congestive heart failure, Uncontrolled hypertension Patient Disposition: Home, Self-Care Instructions: Furosemide (By mouth), Heart Failure (ED) Additional Instructions: return to ED for any worsening symptoms or concerns TAKE LASIX 40MG DAILY FOR THE NEXT 3 DAYS then RESUME to 20mg daily, DO NOT TAKE IT TONIGHT YOU WERE GIVEN A DOSE IN THE ED Prescriptions: New furosemide [Lasix] 40 mg tablet 40 mg PO DAILY 3 Days Qty: 3 RF: 0 No Action spironolactone 25 mg Tablet 25 mg PO BEDTIME RF: 0 furosemide 20 mg Tablet 20 mg PO BEDTIME RF: 0 carvedilol [Coreg] 12.5 mg tablet 12.5 mg PO BID Qty: 60 RF: 0 Entresto 24-26 mg tablet 1 tab PO BID Qty: 60 RF: 0 cyclobenzaprine 10 mg tablet 10 mg PO TID PRN (Reason: muscle spasm) Qty: 14 RF: 0 Referrals: Physician,Unknown [Primary Care Provider] - 2 days Print Language: Singaporean
--- NOTE | 2020-10-04 08:39 | ECG_ITS ---
Test Reason : DYSPNEA Blood Pressure : / mmHG Vent. Rate : 071 BPM Atrial Rate : 071 BPM P-R Int : 180 ms QRS Dur : 124 ms QT Int : 432 ms P-R-T Axes : 072 -17 122 degrees QTc Int : 469 ms Normal sinus rhythm Non-specific intra-ventricular conduction delay T wave abnormality, consider lateral ischemia Abnormal ECG When compared with ECG of 13-SEP-2020 03:17, Premature ventricular complexes are no longer Present Referred By: Daly Ferrari Electronically Signed By:KAILYN MUHAMMAD MD
[2020-10-04 08:56] VITALS: BP 158/91; PULSE 75
[2020-10-04] MEDS: Nitroglycerin 2 % Oint 1 GM Packet 1 INCH TRANSDERMA (08:56)
[2020-10-04] MEDS: Aspirin 81 MG TAB.CHEW 162 MG PO (08:56)
[2020-10-04] MEDS: Furosemide 20 MG TABLET PO (08:56)
[2020-10-04 08:57] LABS: MANUAL DIFF FLAG NO
[2020-10-04 09:03] LABS: Basophils Percent Auto 0.7 % (0-2); Eosinophils Absolute Auto 0.2 X10*3/uL (0.0-0.4); Eosinophils Percent Auto 3.5 % (0-4); Hematocrit 38.6 % (42-52); Imm Gran Abs Auto 0.03 X10*3/uL (0.00-0.03); Imm Gran Pct Auto 0.6 % (0.0-0.4); Lymphocytes Absolute Auto 1.6 X10*3/uL (1.2-4.9); Lymphocytes Percent Auto 29.3 % (20-40); Mean Corpuscular HGB Conc 33.7 g/dl (31.0-36.0); Mean Corpuscular Hemoglobin 30.2 pg (27.0-33.0); Mean Corpuscular Volume 89.6 fL (80-98); Mean Platelet Volume 10.6 fL (9.4-12.4); Monocytes Absolute Auto 0.6 X10*3/uL (0.1-1.2); Monocytes Percent Auto 10.6 % (2-11); Neutrophils Percent Auto 55.3 % (45-73); Platelet Count 306 X10*3/uL (160-400); Red Blood Count 4.31 X10*6/uL (4.60-5.80); Red Cell Distribution Width 12.5 % (11.0-16.0); White Blood Count 5.4 X10*3/uL (4.8-10.8)
[2020-10-04 09:10] LABS: INTERNATIONAL NORM RATIO 1.1 (0.9-1.1)
[2020-10-04 09:13] LABS: Partial Thromboplastin Time 36.8 SEC (24.1-38.0)
[2020-10-04 09:22] LABS: COVID-19 Test Negative (Negative)
[2020-10-04 09:39] LABS: Alanine Aminotransferase 10 U/L (0-40); Albumin Level 3.9 g/dL (3.5-5.0); Alkaline Phosphatase 93 U/L (39-117); Anion Gap 10 (12-20); Aspartate Amino Transferase 14 U/L (5-37); Bilirubin Direct 0.3 mg/dL (0.0-0.5); Bilirubin Total 0.7 mg/dL (0.0-1.0); Blood Urea Nitrogen 24 mg/dL (9-16); Calcium 9.1 mg/dL (8.4-10.2); Carbon Dioxide 26 mmol/L (22-29); Chloride 111 mmol/L (96-108); Estimated Glomerular Filt Rate 44; Glucose Random 119 mg/dL (60-115); Magnesium 1.9 mg/dL (1.6-2.6); Potassium 4.5 mmol/L (3.3-5.1); Sodium 142 mmol/L (135-145); Total Protein 6.4 g/dL (6.5-8.0)
[2020-10-04 09:42] LABS: B Type Natriuretic Peptide 509 pg/mL (<100)
[2020-10-04 09:45] VITALS: BP 157/88; PULSE 65; RESP 20; O2SAT 99
--- NOTE | 2020-10-04 09:45 | PC.NURSE ---
PT STILL REPORTS FEELING SOB, LS CLEAR, DENIES CHEST TIGHTNESS/PRESSURE AT THIS TIME
[2020-10-04 09:49] LABS: Troponin-I High Sensitivity 42.6 ng/L (<3.5-35.0)
[2020-10-04 10:39] VITALS: BP 159/96; PULSE 68; RESP 20; O2SAT 100
[2020-10-04] MEDS: Furosemide 20 MG/2 ML VIAL IVPUSH (10:39)
[2020-10-04 12:05] VITALS: BP 159/88; PULSE 64; RESP 16; TEMP 36.4; O2SAT 98
[2020-10-04 12:39] LABS: Troponin-I High Sensitivity 39.9 ng/L (<3.5-35.0)
--- NOTE | 2020-10-04 12:47 | PC.NURSE ---
PT VOIDED 825ML CLEAR URINE
--- NOTE | 2020-10-04 12:50 | PC.NURSE ---
Patient voided 100 ml. Pt denies any pain or shortness of breath.
[2020-10-04 12:57] VITALS: BP 164/99; PULSE 77; RESP 19; O2SAT 99
--- NOTE | 2020-10-04 13:04 | PC.NURSE ---
Doctor at bedside going over test results. HOB lowered per doctor to see how oxygen sats do lying flat. Sats currently 99%
== END 2020-10-04 14:02 | disposition home or self-care (01) ==
PROVIDERS: Emergency Provider Emergency Medicine
DX: I11.0 Hypertensive heart disease with heart failure (principal); I50.9 Heart failure, unspecified; Z95.810 Presence of automatic (implantable) cardiac defibrillator; Z20.822 Contact with and (suspected) exposure to COVID-19
CPT/HCPCS: 36415; 71045; 80048; 80076; 83735; 83880; 84484; 85025; 85610; 85730; 87635; 93005; 96374; 99284; 99285; J1940

== ENCOUNTER 2020-10-05 07:24 | Inpatient (IN) | payer OTHER, SELFPAY ==
[2020-10-05] VITALS (11 sets, daily range): BP systolic 131–189; BP diastolic 82–106; PULSE 60–86; RESP 15–21; TEMP 36–36.8; O2SAT 97–100; BMI 39.5
--- NOTE | ~2020-10-05 | XR_ITS ---
EXAMINATION: XR CHEST CLINICAL INFORMATION: Short of breath COMPARISON: Chest x-ray 10/04/2020 TECHNIQUE: Frontal view of the chest was obtained. FINDINGS: The lungs are well-expanded and clear of acute process. The heart size is borderline normal. Pulmonary vascularity is normal. There is a solitary pacer electrodes in right ventricle. No gross bony abnormality seen. XR/XR chest 1V IMPRESSION: Unremarkable chest examination.
--- NOTE | ~2020-10-05 | CT_ITS ---
EXAMINATION: CT ANGIOGRAM OF THE CHEST WITH AND WITHOUT CONTRAST (CT PULMONARY ANGIOGRAM FOR PE) CLINICAL INFORMATION: Shortness of breath. Assess for PE. COMPARISON: Chest radiograph 10/05/2020, CTA chest 09/13/2020. TECHNIQUE: Prior to contrast administration, noncontrast localization images were obtained. Subsequently, multidetector volumetric imaging was performed from the thoracic inlet to below the diaphragms following the administration of 75 mL Omnipaque 350 intravenous contrast. Sagittal, coronal, and MIP oblique sagittal reformatted images were obtained on the CT workstation, uploaded to PACS, and reviewed. This CT examination was performed using dose optimization techniques as appropriate, variously including the following: *Automated exposure control *Adjustment of mA and/or kV according to patient size (this includes techniques or standardized protocols for targeted exams where dose is matched to indication/reason for exam; i.e. extremities or head) *Use of iterative reconstruction technique Total exam dose-length product 440 mGy-cm FINDINGS: QUALITY OF STUDY/CONTRAST BOLUS: Satisfactory. PULMONARY ARTERIES: No central or segmental pulmonary emboli. THORACIC AORTA: Thoracic aorta is normal in caliber. No aneurysmal enlargement. LUNG: The central airways are clear and there is no endobronchial lesion or bronchiectasis. No pneumothorax, airspace consolidation, groundglass opacities, or mass. PLEURA: No pleural thickening or pleural mass. Trace effusions. MEDIASTINUM: Small mediastinal nodes are stable. There is enlarged cardiopericardial silhouette again seen. Trace pleural fluid anteriorly proximally 5 mm in thickness. No evidence of septal bowing or right heart strain. CHEST WALL/AXILLA: No axillary or internal mammary lymphadenopathy. OSSEOUS STRUCTURES: No acute or suspicious osseous abnormality. UPPER ABDOMEN: Cholelithiasis again noted. No gallbladder dilatation or pericholecystic inflammatory changes. Cyst lower central right hepatic lobe 1.8 x 1.3 cm again noted. No reflux of contrast into the hepatic veins to suggest elevated right heart pressures. CT/CT angio chest PE protocol IMPRESSION: 1. No pulmonary embolism. 2. Trace effusions. Lungs clear. 3. Cholelithiasis. VTE: negative
--- NOTE | 2020-10-05 07:57 | ECG_ITS ---
Test Reason : SOB Blood Pressure : / mmHG Vent. Rate : 080 BPM Atrial Rate : 080 BPM P-R Int : 184 ms QRS Dur : 122 ms QT Int : 412 ms P-R-T Axes : 063 -15 120 degrees QTc Int : 475 ms Normal sinus rhythm Non-specific intra-ventricular conduction delay ST & T wave abnormality, consider lateral ischemia Abnormal ECG When compared to the previous EKG of No significant changes seen Referred By: Generic ED Physician Electronically Signed By:KAILYN MUHAMMAD MD
[2020-10-05 08:23] LABS: MANUAL DIFF FLAG NO
[2020-10-05 08:28] LABS: Basophils Percent Auto 0.5 % (0-2); Eosinophils Absolute Auto 0.2 X10*3/uL (0.0-0.4); Eosinophils Percent Auto 2.9 % (0-4); Hematocrit 39.8 % (42-52); Hemoglobin 13.3 g/dl (14.0-18.0); Imm Gran Abs Auto 0.02 X10*3/uL (0.00-0.03); Imm Gran Pct Auto 0.4 % (0.0-0.4); Lymphocytes Absolute Auto 1.6 X10*3/uL (1.2-4.9); Lymphocytes Percent Auto 27.9 % (20-40); Mean Corpuscular HGB Conc 33.4 g/dl (31.0-36.0); Mean Corpuscular Volume 89.8 fL (80-98); Mean Platelet Volume 10.2 fL (9.4-12.4); Monocytes Absolute Auto 0.5 X10*3/uL (0.1-1.2); Monocytes Percent Auto 9.5 % (2-11); Neutrophils Absolute Auto 3.3 X10*3/uL (2.0-8.3); Neutrophils Percent Auto 58.8 % (45-73); Platelet Count 304 X10*3/uL (160-400); Red Blood Count 4.43 X10*6/uL (4.60-5.80); Red Cell Distribution Width 12.5 % (11.0-16.0); White Blood Count 5.6 X10*3/uL (4.8-10.8)
[2020-10-05 09:01] LABS: Anion Gap 14 (12-20); Blood Urea Nitrogen 25 mg/dL (9-16); Calcium 8.9 mg/dL (8.4-10.2); Chloride 107 mmol/L (96-108); Estimated Glomerular Filt Rate 45; Glucose Random 146 mg/dL (60-115); Potassium 4.8 mmol/L (3.3-5.1); Sodium 141 mmol/L (135-145)
[2020-10-05 09:02] LABS: Carbon Dioxide 25 mmol/L (22-29)
[2020-10-05 09:09] LABS: B Type Natriuretic Peptide 413 pg/mL (<100); Troponin-I High Sensitivity 38.4 ng/L (<3.5-35.0)
[2020-10-05] MEDS: Furosemide 40 MG/4 ML VIAL IVPUSH ×2 (10:08→17:32)
[2020-10-05] MEDS: carvediloL 6.25 MG TABLET PO ×2 (10:08→20:21)
[2020-10-05 10:16] LABS: Alanine Aminotransferase 11 U/L (0-40); Albumin Level 3.9 g/dL (3.5-5.0); Alkaline Phosphatase 94 U/L (39-117); Aspartate Amino Transferase 19 U/L (5-37); Bilirubin Direct 0.2 mg/dL (0.0-0.5); Bilirubin Total 0.7 mg/dL (0.0-1.0); Lipase 38 U/L (8-78); Total Protein 6.6 g/dL (6.5-8.0)
--- NOTE | 2020-10-05 10:16 | ED_ITS ---
HPI - SOB/Dyspnea General Chief Complaint: Dyspnea Stated Complaint: difficulty breathing Time Seen by Provider: 10/05/20 09:34 Source: patient Mode of arrival: ambulatory Limitations: no limitations History of Present Illness HPI Narrative: 60 yo male with hx of NSVT, HTN, NICM, CHF with AICD, here with c/o of SOB and severe dyspnea on exertion x 2 days. Patient was seen in our ED yesterday for similar complaints. After medical clearance of sent home with increased dose of Lasix. Patient states he was up all night with continued shortness of breath and was forced to sleep in a recliner because every time he laid flat he had severe shortness of breath. States whenever he walks longer distances he cannot catch his breath. Denies chest discomfort but does admit to some upper abdominal discomfort. Denies any recent travel. Denies any unilateral calf tenderness or swelling. Denies fevers or chills but does admit to mild cough. Patient is very worried because of how short of breath he feels at home. Really feels that he needs to be in the hospital to better manage his symptoms. Patient does admit to 1 episode of nonbloody nonbilious emesis last evening but denies any further nausea vomiting or diarrhea. States he continues to take medications as directed although he did not take his morning medications due to being here in the emergency room denies any issues with urination. Related Data Home Medications Medication Instructions Recorded Confirmed furosemide 20 mg PO BEDTIME 03/20/20 10/05/20 spironolactone 25 mg PO BEDTIME 03/20/20 10/05/20 carvedilol 1 tab PO BID 10/05/20 10/05/20 zolpidem 5 mg PO BEDTIME PRN 10/05/20 10/05/20 Previous Rx's Medication Instructions Recorded cyclobenzaprine 10 mg PO TID PRN #14 tab 09/13/20 Allergies Allergy/AdvReac Type Severity Reaction Status Date / Time No Known Allergies Allergy Verified 09/13/20 03:21 [No Known Allergies*] Review of Systems Review of Systems: Constitutional : No Weight loss, No Fever, No Chills, No Night Sweats, + Fatigue, No Malaise ENT/Mouth : No Hearing loss, No Ear Pain, No Nasal Congestion, No Sinus Pain, No Hoarseness, No sore throat, No Rhinorrhea, No Swallowing Difficulty Eyes: No Eye Pain, No Swelling, No Redness, No Foreign Body, No Discharge, No Vision Changes Cardiovascular : No Chest Pain, + SOB, + Dyspnea on Exertion, + Orthopnea, No Edema, No Palpitations Respiratory : + Cough, No Sputum, No Wheezing, No Smoke Exposure Gastrointestinal : No Nausea, + Vomiting, No Diarrhea, No Constipation, + abdominal Pain, No Hematochezia, No Melena Genitourinary : no irregular bleeding, No Dysuria, No Urinary Frequency, No Hematuria, No Urinary Incontinence, No Urgency, No Flank Pain, No Urinary Flow Changes, No Hesitancy Musculoskeletal : No joint pain, No Myalgias, No Joint Swelling Skin : No Skin Lesions, No rash Neuro : No Weakness, No Numbness, No Paresthesias, No Loss of Consciousness, No Dizziness, No Headache Psych : No Anxiety/Panic, No Depression, No SI/HI/AH/VH, No Social Issues, Heme/Lymph: No Bruising, No Bleeding,No Lymphadenopathy Endocrine : No Polyuria, No Polydipsia, No Temperature Intolerance FOR[facility]LY [facility], [facility] Past Medical History Attestation statement: The following information was validated with the patient. Source: old records reviewed and nursing notes reviewed Medical History Cardiac defibrillator in place CKD (chronic kidney disease), stage II Hypertension NICM (nonischemic cardiomyopathy) NSVT (nonsustained ventricular tachycardia) Renal infarct Family History Family History Other CAD (coronary artery disease) Social History Social History Household Members: Significant Other Housing: House Do you presently have visiting nurse or other home services: No Alcohol intake: never Patient Tobacco Use Status: Never used Tobacco Use of substances other than those prescribed or required for medical reasons: No Advance Directives: No Advance Directives Information Provided: No Advance Directives Date on File: 03/20/20 service: Yes Current occupational status: employed Physical Exam Vital Signs: Vital Signs: Last Vital Signs Temp 98.2 F 10/05/20 15:47 Pulse 68 10/05/20 17:31 Resp 17 10/05/20 17:31 BP 145/87 H 10/05/20 17:31 Pulse Ox 97 10/05/20 17:31 Body Mass Index 39.5 vital signs have been reviewed as normal and appeared to be correct. Blood pressure normal. Heart rate normal. Respiration rate normal. Temperature normal. Oxygen saturation normal. Appearance: Alert. Oriented X3. Mild acute distress. Head: Normal external exam. Normocephalic. Atraumatic. No Gallardo signs noted. No raccoon eyes noted Eyes: PERRLA. EOMI. Conjunctiva and sclera normal. Eyelids normal. ENT: EAC normal. TM's Normal. Pharynx normal. Uvula midline. Moist mucous membranes. No trismus noted. No drooling noted. No muffled voice noted. Neck: Normal inspection. Neck supple. FROM. No adenopathy. No meningeal signs. No neck mass noted. CVS: Normal heart rate and rhythm. Heart sound normal. No murmurs noted. Pulses normal throughout. Respiratory: No respiratory distress. Painless inspiration. Breath sounds dimished to bilateral bases. No wheezes/rales/rhonchi noted. Chest nontender. No accessory muscle usage noted Abdomen: Soft with mild tenderness to the upper abdomen. No guarding or rebound tenderness. Bowel sounds normal in all 4 quadrants. No distention noted. No organomegaly noted. No visible injury noted. Back: No CVA tenderness. Full range of motion noted. Skin: Skin warm and dry. Normal skin color. Normal skin turgor. No rashes/lesions/lacerations noted. Extremities: No lower extremity edema. Extremities exhibit normal range of motion. Extremities nontender, no pitting edema to LE. Neuro: Oriented X 3. No motor deficit. No sensory deficit. Course Reevaluation(s) Reevaluation #1: Patient's CTA without evidence of PE, delta troponin still in process. pending troponin will proceed with admission patient remains hemodynamically stable. Reevaluation #2: Delta troponin within normal limits will proceed with admission due to CHF exacerbation patient comfortable with this plan. MDM - SOB/Dyspnea MDM Narrative Medical decision making narrative: Patient's vital signs are stable and he is afebrile. Patient re-presented to the emergency department with continued shortness of breath worse with lying flat on exertion. Patient with known congestive heart failure Lasix dose was increased yesterday while in the emergency department. High suspicion for ongoing CHF exacerbation. Given the absence of chest pain lower suspicion for ACS but patient does have mild upper abdominal pain. EKG obtained on arrival without acute findings however troponin slightly elevated will repeat a 3 hours troponin to further assess. The patient continues to deny any chest pain will hold off on additional management at this time. Chest x-ray obtained in the waiting room without evidence of pulmonary consolidation or edema. Remaining labs obtained in the reading room without significant abnormal findings compared to patient's baseline. Unfortunately given ongoing shortness of breath with only slight increase in proBNP cannot officially rule out PE will proceed with CT looking for evidence of such. Lower risk for aortic dissection will perform bedside ultrasound to further assess abdominal aorta recent CTA in August without any thoracic aortic aortic abnormalities. Will give IV dose of Lasix, morning blood pressure medications. Patient will require admission given continued severe symptoms at home making discharged in safe patient is preferable to this plan will continue to monitor reassess pending the above. Lab Data Result diagrams: 10/05/20 08:19 10/05/20 08:19 Labs: Lab Results 10/05/20 10/05/20 10/05/20 Range/Units 08:19 08:19 08:19 WBC 5.6 (4.8-10.8) X10*3/uL RBC 4.43 L (4.60-5.80) X10*6/uL Hgb 13.3 L (14.0-18.0) g/dl Hct 39.8 L (42-52) % MCV 89.8 (80-98) fL MCH 30.0 (27.0-33.0) pg MCHC 33.4 (31.0-36.0) g/dl RDW 12.5 (11.0-16.0) % Plt Count 304 (160-400) X10*3/uL MPV 10.2 (9.4-12.4) fL Immature Gran % (Auto) 0.4 (0.0-0.4) % Neut % (Auto) 58.8 (45-73) % Lymph % (Auto) 27.9 (20-40) % [place] % (Auto) 9.5 (2-11) % Eos % (Auto) 2.9 (0-4) % Baso % (Auto) 0.5 (0-2) % Lymph # (Auto) 1.6 (1.2-4.9) X10*3/uL [place] # (Auto) 0.5 (0.1-1.2) X10*3/uL Eos # (Auto) 0.2 (0.0-0.4) X10*3/uL Baso # (Auto) 0.0 (0.0-0.2) X10*3/uL Abs Immat Gran (auto) 0.02 (0.00-0.03) X10*3/uL Absolute Neuts (auto) 3.3 (2.0-8.3) X10*3/uL Absolute Nucleated RBC 0.000 (0.0-0.012) X10*3/uL Nucleated RBC % (auto) 0.0 (0.0-0.2) /100WBC Hold Blue Top SEE NOTE Sodium 141 (135-145) mmol/L Potassium 4.8 (3.3-5.1) mmol/L Chloride 107 (96-108) mmol/L Carbon Dioxide 25 (22-29) mmol/L Anion Gap 14 (12-20) BUN 25 H (9-16) mg/dL Creatinine 1.57 H (0.5-1.4) mg/dL Estim Creat Clear Calc 57.0 Estimated GFR 45 Random Glucose 146 H (60-115) mg/dL Calcium 8.9 (8.4-10.2) mg/dL Total Bilirubin 0.7 (0.0-1.0) mg/dL Direct Bilirubin 0.2 (0.0-0.5) mg/dL AST 19 (5-37) U/L ALT 11 (0-40) U/L Alkaline Phosphatase 94 (39-117) U/L Troponin I High Sens (<3.5-35.0) ng/L B-Natriuretic Peptide (<100) pg/mL Total Protein 6.6 (6.5-8.0) g/dL Albumin 3.9 (3.5-5.0) g/dL Lipase 38 (8-78) U/L Urine Color Urine Appearance Urine pH (5.0-8.0) Ur Specific [place] (1.005-1.025) Urine Protein (NEG-TRACE) MG/DL Urine Glucose (UA) (NEG) MG/DL Urine Ketones (NEG) MG/DL Urine Blood (NEG) Urine Nitrite (NEG) Ur Leukocyte Esterase (NEG) COVID-19 ([facility]) (Negative) COVID-19 Clin Com 10/05/20 10/05/20 10/05/20 Range/Units 08:19 10:28 11:21 WBC (4.8-10.8) X10*3/uL RBC (4.60-5.80) X10*6/uL Hgb (14.0-18.0) g/dl Hct (42-52) % MCV (80-98) fL MCH (27.0-33.0) pg MCHC (31.0-36.0) g/dl RDW (11.0-16.0) % Plt Count (160-400) X10*3/uL MPV (9.4-12.4) fL Immature Gran % (Auto) (0.0-0.4) % Neut % (Auto) (45-73) % Lymph % (Auto) (20-40) % [place] % (Auto) (2-11) % Eos % (Auto) (0-4) % Baso % (Auto) (0-2) % Lymph # (Auto) (1.2-4.9) X10*3/uL [place] # (Auto) (0.1-1.2) X10*3/uL Eos # (Auto) (0.0-0.4) X10*3/uL Baso # (Auto) (0.0-0.2) X10*3/uL Abs Immat Gran (auto) (0.00-0.03) X10*3/uL Absolute Neuts (auto) (2.0-8.3) X10*3/uL Absolute Nucleated RBC (0.0-0.012) X10*3/uL Nucleated RBC % (auto) (0.0-0.2) /100WBC Hold Blue Top Sodium (135-145) mmol/L Potassium (3.3-5.1) mmol/L Chloride (96-108) mmol/L Carbon Dioxide (22-29) mmol/L Anion Gap (12-20) BUN (9-16) mg/dL Creatinine (0.5-1.4) mg/dL Estim Creat Clear Calc Estimated GFR Random Glucose (60-115) mg/dL Calcium (8.4-10.2) mg/dL Total Bilirubin (0.0-1.0) mg/dL Direct Bilirubin (0.0-0.5) mg/dL AST (5-37) U/L ALT (0-40) U/L Alkaline Phosphatase (39-117) U/L Troponin I High Sens 38.4 H* (<3.5-35.0) ng/L B-Natriuretic Peptide 413 H (<100) pg/mL Total Protein (6.5-8.0) g/dL Albumin (3.5-5.0) g/dL Lipase (8-78) U/L Urine Color YELLOW Urine Appearance CLEAR Urine pH 6.5 (5.0-8.0) Ur Specific [place] 1.010 (1.005-1.025) Urine Protein TRACE (NEG-TRACE) MG/DL Urine Glucose (UA) NEG (NEG) MG/DL Urine Ketones NEG (NEG) MG/DL Urine Blood NEG (NEG) Urine Nitrite NEG (NEG) Ur Leukocyte Esterase NEG (NEG) COVID-19 ([facility]) Negative (Negative) COVID-19 Clin Com See Note 10/05/20 Range/Units 11:21 WBC (4.8-10.8) X10*3/uL RBC (4.60-5.80) X10*6/uL Hgb (14.0-18.0) g/dl Hct (42-52) % MCV (80-98) fL MCH (27.0-33.0) pg MCHC (31.0-36.0) g/dl RDW (11.0-16.0) % Plt Count (160-400) X10*3/uL MPV (9.4-12.4) fL Immature Gran % (Auto) (0.0-0.4) % Neut % (Auto) (45-73) % Lymph % (Auto) (20-40) % [place] % (Auto) (2-11) % Eos % (Auto) (0-4) % Baso % (Auto) (0-2) % Lymph # (Auto) (1.2-4.9) X10*3/uL [place] # (Auto) (0.1-1.2) X10*3/uL Eos # (Auto) (0.0-0.4) X10*3/uL Baso # (Auto) (0.0-0.2) X10*3/uL Abs Immat Gran (auto) (0.00-0.03) X10*3/uL Absolute Neuts (auto) (2.0-8.3) X10*3/uL Absolute Nucleated RBC (0.0-0.012) X10*3/uL Nucleated RBC % (auto) (0.0-0.2) /100WBC Hold Blue Top Sodium (135-145) mmol/L Potassium (3.3-5.1) mmol/L Chloride (96-108) mmol/L Carbon Dioxide (22-29) mmol/L Anion Gap (12-20) BUN (9-16) mg/dL Creatinine (0.5-1.4) mg/dL Estim Creat Clear Calc Estimated GFR Random Glucose (60-115) mg/dL Calcium (8.4-10.2) mg/dL Total Bilirubin (0.0-1.0) mg/dL Direct Bilirubin (0.0-0.5) mg/dL AST (5-37) U/L ALT (0-40) U/L Alkaline Phosphatase (39-117) U/L Troponin I High Sens 28.3 (<3.5-35.0) ng/L B-Natriuretic Peptide (<100) pg/mL Total Protein (6.5-8.0) g/dL Albumin (3.5-5.0) g/dL Lipase (8-78) U/L Urine Color Urine Appearance Urine pH (5.0-8.0) Ur Specific [place] (1.005-1.025) Urine Protein (NEG-TRACE) MG/DL Urine Glucose (UA) (NEG) MG/DL Urine Ketones (NEG) MG/DL Urine Blood (NEG) Urine Nitrite (NEG) Ur Leukocyte Esterase (NEG) COVID-19 ([facility]) (Negative) COVID-19 Clin Com Discharge Plan Discharge Clinical Impression: Congestive heart failure Patient Disposition: Admitted As Inpatient
[2020-10-05] MEDS: Sacubitril/Valsartan 24/26 1 TAB TABLET PO (10:29)
[2020-10-05 10:40] LABS: Glucose Urine UA NEG (NEG); Leukocyte Esterase Urine NEG (NEG); Nitrite Urine NEG (NEG); PH 6.5 (5.0-8.0); Urine Blood NEG (NEG); Urine Ketones NEG (NEG); Urine Protein TRACE MG/DL (NEG-TRACE)
[2020-10-05 10:44] LABS: Appearance Urine CLEAR; Color Urine YELLOW
[2020-10-05] MEDS: iohexoL 350 MG/ML 100 ML INFUS..BTL 75 ML IV (11:02)
[2020-10-05] MEDS: Aspirin 81 MG TAB.CHEW 324 MG PO (11:05)
[2020-10-05 11:46] LABS: COVID-19 Test Negative (Negative)
[2020-10-05 12:08] LABS: Troponin-I High Sensitivity 28.3 ng/L (<3.5-35.0)
--- NOTE | 2020-10-05 13:52 | PM.IMHP ---
History of Present Illness Date of Service: 10/05/20 Chief Complaint: sob 60M with a past medical history significant for nonischemic cardiomyopathy status post AICD, last EF in August 2020 reported to be 20-25%, normally on carvedilol, Aldactone, Lasix 20 mg daily, presented complaining of 2 days of shortness of breath. Patient states that 3 days prior to presentation he had been feeling well and at his baseline, able to ambulate without shortness of breath and go up and downstairs. Two nights prior to presentation patient had episode of paroxysmal nocturnal dyspnea and orthopnea, had to sleep in a chair. The next day he came to the ED, advised to increase his Lasix to 40 mg daily and return to ED if worsening shortness of breath. Patient states the next day his shortness of breath and not improved so he came to the ED. in ED CTA was done which did not show any pulmonary embolism. Patient was given 40 mg IV Lasix and plan for admission for IV diuresis for CHF. Review of Systems Review of Systems: Constitutional: Denies fever, denies Chills Eyes: denies blurry vision ENT: denies sore throat CVS: denies chest pain Respiratory: dyspnea GI: no abdominal pain : denies dysuria MSK: denies neck pain Skin: denies rash Neuro: denies specific motor weakness Psych: denies suicidal ideation Endocrine: denies heat/cold intoleratnce Hematologic: denies easy bleeding Allergy: denies hives [facility] Medical History Cardiac defibrillator in place CKD (chronic kidney disease), stage II Hypertension NICM (nonischemic cardiomyopathy) NSVT (nonsustained ventricular tachycardia) Renal infarct Family History Other CAD (coronary artery disease) Family history: reviewed and not pertinent Social History Household Members: Significant Other Housing: House Do you presently have visiting nurse or other home services: No Alcohol intake: never Patient Tobacco Use Status: Never used Tobacco Use of substances other than those prescribed or required for medical reasons: No Advance Directives: No Advance Directives Information Provided: No Advance Directives Date on File: 11/23/20 service: Yes Current occupational status: employed Meds Allergies Allergy/AdvReac Type Severity Reaction Status Date / Time No Known Allergies Allergy Verified 09/13/20 03:21 [No Known Allergies*] Active Medications: Current Medications Generic Name Dose Route Start Last Admin Trade Name Jacqui PRN Reason Stop Dose Admin Pharmacy Consult 1 each 10/05/20 12:53 Consult Rx Perform Med Rec MISCELLANE ONCE PRN Consult order Home Medications Medication Instructions Recorded Confirmed Last Taken Type furosemide 20 mg PO BEDTIME 03/20/20 10/05/20 03/18/20 History spironolactone 25 mg PO BEDTIME 03/20/20 10/05/20 03/18/20 History carvedilol 1 tab PO BID 10/05/20 10/05/20 Unknown History Physical Exam Vital Signs and Narrative: Vital Signs: Last Vital Signs Temp 98.0 F 10/05/20 07:46 Pulse 72 10/05/20 13:40 Resp 15 10/05/20 13:40 BP 161/96 H 10/05/20 13:40 Pulse Ox 99 10/05/20 13:40 Body Mass Index 39.5 General: no acute distress HEENT: atraumatic Neck: normal to visual inspection CVS: S1, S2, RRR Resp: CTA bilateral Chest: non tender GI: soft, non tender, slightly distended : no CVA tenderness Skin: no rashes Extremities: no edema (reports he carries his excess water in abdomen) Neuro: Oriented X3, grossly intact Psych: cooperative Results Labs CBC and Chem 7: 10/05/20 08:19 10/05/20 08:19 Labs: Laboratory Results - last 24 hr 10/05/20 10/05/20 10/05/20 08:19 08:19 08:19 MCV 89.8 MCH 30.0 MCHC 33.4 RDW 12.5 Plt Count 304 MPV 10.2 Immature Gran % (Auto) 0.4 Neut % (Auto) 58.8 Lymph % (Auto) 27.9 [place] % (Auto) 9.5 Eos % (Auto) 2.9 Baso % (Auto) 0.5 Lymph # (Auto) 1.6 [place] # (Auto) 0.5 Eos # (Auto) 0.2 Baso # (Auto) 0.0 Abs Immat Gran (auto) 0.02 Absolute Neuts (auto) 3.3 Absolute Nucleated RBC 0.000 Nucleated RBC % (auto) 0.0 Hold Blue Top SEE NOTE Anion Gap 14 Estim Creat Clear Calc 57.0 Estimated GFR 45 Random Glucose 146 H Calcium 8.9 Total Bilirubin 0.7 Direct Bilirubin 0.2 AST 19 ALT 11 Alkaline Phosphatase 94 Troponin I High Sens B-Natriuretic Peptide Total Protein 6.6 Albumin 3.9 Lipase 38 Urine Color Urine Appearance Urine pH Ur Specific [place] Urine Protein Urine Glucose (UA) Urine Ketones Urine Blood Urine Nitrite Ur Leukocyte Esterase COVID-19 ([facility]) COVID-19 Clin Com 10/05/20 10/05/20 10/05/20 08:19 10:28 11:21 MCV MCH MCHC RDW Plt Count MPV Immature Gran % (Auto) Neut % (Auto) Lymph % (Auto) [place] % (Auto) Eos % (Auto) Baso % (Auto) Lymph # (Auto) [place] # (Auto) Eos # (Auto) Baso # (Auto) Abs Immat Gran (auto) Absolute Neuts (auto) Absolute Nucleated RBC Nucleated RBC % (auto) Hold Blue Top Anion Gap Estim Creat Clear Calc Estimated GFR Random Glucose Calcium Total Bilirubin Direct Bilirubin AST ALT Alkaline Phosphatase Troponin I High Sens 38.4 H* B-Natriuretic Peptide 413 H Total Protein Albumin Lipase Urine Color YELLOW Urine Appearance CLEAR Urine pH 6.5 Ur Specific [place] 1.010 Urine Protein TRACE Urine Glucose (UA) NEG Urine Ketones NEG Urine Blood NEG Urine Nitrite NEG Ur Leukocyte Esterase NEG COVID-19 ([facility]) Negative COVID-19 [employer] [facility] Com See Note 10/05/20 11:21 MCV MCH MCHC RDW Plt Count MPV Immature Gran % (Auto) Neut % (Auto) Lymph % (Auto) [place] % (Auto) Eos % (Auto) Baso % (Auto) Lymph # (Auto) [place] # (Auto) Eos # (Auto) Baso # (Auto) Abs Immat Gran (auto) Absolute Neuts (auto) Absolute Nucleated RBC Nucleated RBC % (auto) Hold Blue Top Anion Gap Estim Creat Clear Calc Estimated GFR Random Glucose Calcium Total Bilirubin Direct Bilirubin AST ALT Alkaline Phosphatase Troponin I High Sens 28.3 B-Natriuretic Peptide Total Protein Albumin Lipase Urine Color Urine Appearance Urine pH Ur Specific [place] Urine Protein Urine Glucose (UA) Urine Ketones Urine Blood Urine Nitrite Ur Leukocyte Esterase COVID-19 ([facility]) COVID-19 Clin Com Imaging Radiologist's Impressions: Impressions Chest X-Ray 10/05/20 07:57 IMPRESSION: Unremarkable chest examination. Chest CTA 10/05/20 09:47 IMPRESSION: 1. No pulmonary embolism. 2. Trace effusions. Lungs clear. 3. Cholelithiasis. VTE: negative Assessment and Plan (1) Acute on chronic systolic CHF (congestive heart failure): Status: Acute 60M presented with sob acute on chronic systolic chf, NICM IV Lasix 40 mg b.i.d. Monitor BMP Monitor I's and O's Continue carvedilol, aldactone ckd II stable, monitor htn coreg, aldactone vte prophylaxis - xarelto 10mg daily
[2020-10-05] MEDS: 0.9 % Sodium Chloride Flush 3 ML SYRINGE IVFLUSH ×2 (15:07→23:44)
--- NOTE | 2020-10-05 15:40 | PC.NURSE ---
Pt in room resting quietly. vitals have been stable, no shortness of breath. pt has family at the bedside. pt plan to go upstairs, he is aware of the plan. awaiting bed assignment.
[2020-10-05] MEDS: Spironolactone 25 MG TABLET PO (20:21)
[2020-10-05] MEDS: Acetaminophen 325 MG TABLET 650 MG PO (22:10)
[2020-10-06 03:18] VITALS: BP 144/80; PULSE 57; RESP 17; TEMP 36.7; O2SAT 99
[2020-10-06 07:07] LABS: Hematocrit 43.2 % (42-52); Hemoglobin 14.6 g/dl (14.0-18.0); Mean Corpuscular HGB Conc 33.8 g/dl (31.0-36.0); Mean Corpuscular Hemoglobin 30.4 pg (27.0-33.0); Platelet Count 359 X10*3/uL (160-400); Red Cell Distribution Width 12.4 % (11.0-16.0); White Blood Count 5.5 X10*3/uL (4.8-10.8)
[2020-10-06 07:10] LABS: B Type Natriuretic Peptide 210 pg/mL (<100)
[2020-10-06 07:18] LABS: Magnesium 2.2 mg/dL (1.6-2.6)
[2020-10-06 07:25] LABS: Anion Gap 13 (12-20); Blood Urea Nitrogen 39 mg/dL (9-16); Calcium 9.1 mg/dL (8.4-10.2); Carbon Dioxide 29 mmol/L (22-29); Chloride 105 mmol/L (96-108); Creatinine Clr Calc Pharmacy 45.2; Estimated Glomerular Filt Rate 34; Glucose Random 85 mg/dL (60-115); Potassium 4.6 mmol/L (3.3-5.1); Sodium 142 mmol/L (135-145)
[2020-10-06 07:47] VITALS: BP 159/91; PULSE 61; RESP 20; TEMP 36.1; O2SAT 100
[2020-10-06] MEDS: 0.9 % Sodium Chloride Flush 3 ML SYRINGE IVFLUSH (08:05)
[2020-10-06] MEDS: Rivaroxaban 10 MG TABLET PO (08:05)
[2020-10-06] MEDS: carvediloL 6.25 MG TABLET PO (08:05)
--- NOTE | 2020-10-06 08:52 | PM.DS ---
DS: Providers Provider Date of Service: 10/06/20 Date of admission: 10/05/20 13:50 Primary care physician: Jessica Alan MD DS: Diagnosis Discharge Diagnosis (1) Acute on chronic systolic CHF (congestive heart failure): Status: Acute (2) CKD (chronic kidney disease), stage II: Status: Acute (3) DOT (acute kidney injury): Status: Acute (4) NICM (nonischemic cardiomyopathy): Status: Acute DS: Medications Discharge Medications Home Medications: Home Medications Medication Instructions Recorded Confirmed furosemide 20 mg PO BEDTIME 03/20/20 10/05/20 spironolactone 25 mg PO BEDTIME 03/20/20 10/05/20 carvedilol 1 tab PO BID 10/05/20 10/05/20 zolpidem 5 mg PO BEDTIME PRN 10/05/20 10/05/20 Previous Rx's Medication Instructions Recorded cyclobenzaprine 10 mg PO TID PRN #14 tab 09/13/20 DS: Summary Hospital Course Hospital Course: patient was admitted for acute on chronic systolic chf. he was treated with iv lasix 40mg bid. his symptoms significantly improved by the next day, faster than expected. he did have some mild DOT on CKD likely due to overdiuresis (creatinine from 1.57 to 1.98) . he is feeling much better and will be discharged home. he will have repeat BMP in one week. he is instructed to maintain low sodium diet and to monitor daily weights to avoid hospitalizations. Time Spent with Patient Time attestation: Total time spent providing and/or coordinating discharge services: Discharge coordination time: Greater than 30 minutes Quality: Stroke Does the patient have a stroke diagnosis?: No Physical Exam Vital Signs: Vital Signs: Last Vital Signs Temp 97.0 F 10/06/20 07:47 Pulse 61 10/06/20 07:47 Resp 20 10/06/20 07:47 BP 159/91 H 10/06/20 07:47 Pulse Ox 100 10/06/20 07:47 Body Mass Index 39.5 General: AO X 3, no acute distress Resp: CTA bilateral CVS: S1,S2,RRR GI: soft, non tender, non distended Neuro: motor grossly intact Psych: appropriate affect DS: Data Data Completed and Pending Labs on day of discharge: Laboratory Results - last 24 hr 0610/05/20 10/05/20 08:19 08:19 10:28 WBC RBC Hgb Hct MCV MCH MCHC RDW Plt Count MPV Absolute Nucleated RBC Nucleated RBC % (auto) Sodium 141 Potassium 4.8 Chloride 107 Carbon Dioxide 25 Anion Gap 14 BUN 25 H Creatinine 1.57 H Estim Creat Clear Calc 57.0 Estimated GFR 45 Random Glucose 146 H Calcium 8.9 Magnesium Total Bilirubin 0.7 Direct Bilirubin 0.2 AST 19 ALT 11 Alkaline Phosphatase 94 Troponin I High Sens 38.4 H* B-Natriuretic Peptide 413 H Total Protein 6.6 Albumin 3.9 Lipase 38 Urine Color YELLOW Urine Appearance CLEAR Urine pH 6.5 Ur Specific [place] 1.010 Urine Protein TRACE Urine Glucose (UA) NEG Urine Ketones NEG Urine Blood NEG Urine Nitrite NEG Ur Leukocyte Esterase NEG COVID-19 ([facility]) COVID-19 Clin Com 10/05/20 10/05/20 10/06/20 11:21 11:21 05:59 WBC 5.5 RBC 4.80 Hgb 14.6 Hct 43.2 MCV 90.0 MCH 30.4 MCHC 33.8 RDW 12.4 Plt Count 359 MPV 11.0 Absolute Nucleated RBC 0.000 Nucleated RBC % (auto) 0.0 Sodium Potassium Chloride Carbon Dioxide Anion Gap BUN Creatinine Estim Creat Clear Calc Estimated GFR Random Glucose Calcium Magnesium Total Bilirubin Direct Bilirubin AST ALT Alkaline Phosphatase Troponin I High Sens 28.3 B-Natriuretic Peptide Total Protein Albumin Lipase Urine Color Urine Appearance Urine pH Ur Specific [place] Urine Protein Urine Glucose (UA) Urine Ketones Urine Blood Urine Nitrite Ur Leukocyte Esterase COVID-19 ([facility]) Negative COVID-19 Clin Com See Note 10/06/20 10/06/20 10/06/20 05:59 05:59 05:59 WBC RBC Hgb Hct MCV MCH MCHC RDW Plt Count MPV Absolute Nucleated RBC Nucleated RBC % (auto) Sodium 142 Potassium 4.6 Chloride 105 Carbon Dioxide 29 Anion Gap 13 BUN 39 H D Creatinine 1.98 H Estim Creat Clear Calc 45.2 Estimated GFR 34 Random Glucose 85 D Calcium 9.1 Magnesium 2.2 Total Bilirubin Direct Bilirubin AST ALT Alkaline Phosphatase Troponin I High Sens B-Natriuretic Peptide 210 H Total Protein Albumin Lipase Urine Color Urine Appearance Urine pH Ur Specific [place] Urine Protein Urine Glucose (UA) Urine Ketones Urine Blood Urine Nitrite Ur Leukocyte Esterase COVID-19 ([facility]) COVID-19 Clin Com Discharge Plan Discharge Patient Disposition: Home, Self-Care Discharge Diagnosis: chf Referrals: Jessica Alan MD [Primary Care Provider] - 1 Week Discharge Medications: Continued spironolactone 25 mg Tablet 25 mg PO BEDTIME RF: 0 furosemide 20 mg Tablet 20 mg PO BEDTIME RF: 0 cyclobenzaprine 10 mg tablet 10 mg PO TID PRN (Reason: muscle spasm) Qty: 14 RF: 0 carvedilol 6.25 mg tablet 1 tab PO BID RF: 0 zolpidem 5 mg Tablet 5 mg PO BEDTIME PRN (Reason: Insomnia) RF: 0 Discharge Orders: Discharge Order (Routine); Ordered 10/06/20 Ordered By: Juan De Guzman Diet: advance to usual diet Activity on Discharge: As tolerated Stand Alone Forms: Patient Portal Discharge page Other Ambulatory Orders: Basic Metabolic Panel (Routine) Timeframe: 1 Week Facility: [facility] - Location: Laboratory Ordered By: Juan De Guzman Care Plan Goals: manage chf Health Concerns: chf, mild acute kidney injury Plan of Treatment: go back to 20mg lasix, low salt diet, daily weights, check bmp in one week Assessment: see above
--- NOTE | 2020-10-06 09:20 | MHC.CM.PN ---
met with pt who is dcd pt is indepedent and working [facility] he [facility] to [place] as well dc plan home no services
== END 2020-10-06 09:30 | disposition home or self-care (01) | DRG 291 ==
LOC: HO.ED 13:31 → HO.EDOVER 14:16 → HO.S3 17:44
PROVIDERS: Physician Assistant; Admitting Provider Internal Medicine; Emergency Provider Emergency Medicine Emergency Medical Services; PCP Internal Medicine; Visit Provider Internal Medicine
DX: I13.0 Hypertensive heart and chronic kidney disease with heart failure and stage 1 through stage 4 chronic kidney disease, or unspecified chronic kidney disease (principal); I50.23 Acute on chronic systolic (congestive) heart failure; N17.9 Acute kidney failure, unspecified; I42.8 Other cardiomyopathies; N18.2 Chronic kidney disease, stage 2 (mild); Z20.822 Contact with and (suspected) exposure to COVID-19; Z95.810 Presence of automatic (implantable) cardiac defibrillator; Z79.899 Other long term (current) drug therapy
CPT/HCPCS: 36415; 71045; 71275; 80048; 80076; 81003; 83690; 83735; 83880; 84484; 85025; 85027; 87635; 93005; 99285; J1940; Q9967

== ENCOUNTER 2020-10-17 22:39 | Inpatient (IN) | payer OTHER, SELFPAY ==
--- NOTE | ~2020-10-17 | XR_ITS ---
EXAMINATION: XR CHEST CLINICAL INFORMATION: Dyspnea COMPARISON: Chest x-ray 10/05/2020 TECHNIQUE: Frontal view of the chest was obtained. 11:11 PM FINDINGS: Heart size is enlarged. Pacemaker lead in right ventricle remain unchanged position since prior study. There is moderate pulmonary vascular congestion with prominence of the central pulmonary vessels. There is diffuse increased interstitial lung markings due to interstitial edema. No overt pulmonary edema. No focal consolidation. No large pleural effusion. XR/XR chest 1V IMPRESSION: Congestive heart failure and interstitial edema.
[2020-10-17 22:50] VITALS: BP 212/116; PULSE 86; RESP 20; TEMP 36.1; O2SAT 97; BMI 39.6
--- NOTE | 2020-10-17 22:56 | ECG_ITS ---
Test Reason : SOB Blood Pressure : / mmHG Vent. Rate : 083 BPM Atrial Rate : 082 BPM P-R Int : 190 ms QRS Dur : 128 ms QT Int : 406 ms P-R-T Axes : 058 -18 124 degrees QTc Int : 477 ms Normal sinus rhythm with PVCs Non-specific intra-ventricular conduction block Cannot rule out Septal infarct , age undetermined T wave abnormality, consider lateral ischemia Abnormal ECG When compared with ECG of 05-OCT-2020 08:15, Premature ventricular complexes Present Referred By: Generic ED Physician Electronically Signed By:Ovidio Bobo
[2020-10-17 23:23] LABS: MANUAL DIFF FLAG NO
[2020-10-17 23:26] LABS: Basophils Percent Auto 0.6 % (0-2); Eosinophils Absolute Auto 0.2 X10*3/uL (0.0-0.4); Eosinophils Percent Auto 2.7 % (0-4); Hematocrit 38.3 % (42-52); Hemoglobin 12.9 g/dl (14.0-18.0); Imm Gran Abs Auto 0.02 X10*3/uL (0.00-0.03); Imm Gran Pct Auto 0.3 % (0.0-0.4); Lymphocytes Absolute Auto 1.8 X10*3/uL (1.2-4.9); Mean Corpuscular HGB Conc 33.7 g/dl (31.0-36.0); Mean Corpuscular Hemoglobin 30.1 pg (27.0-33.0); Mean Corpuscular Volume 89.3 fL (80-98); Mean Platelet Volume 10.8 fL (9.4-12.4); Monocytes Absolute Auto 0.7 X10*3/uL (0.1-1.2); Monocytes Percent Auto 9.9 % (2-11); Neutrophils Absolute Auto 3.9 X10*3/uL (2.0-8.3); Neutrophils Percent Auto 58.5 % (45-73); Platelet Count 281 X10*3/uL (160-400); Red Blood Count 4.29 X10*6/uL (4.60-5.80); Red Cell Distribution Width 12.7 % (11.0-16.0); White Blood Count 6.6 X10*3/uL (4.8-10.8)
[2020-10-17 23:46] LABS: Anion Gap 13 (12-20); Blood Urea Nitrogen 28 mg/dL (9-16); Calcium 9.1 mg/dL (8.4-10.2); Carbon Dioxide 21 mmol/L (22-29); Chloride 113 mmol/L (96-108); Creatinine Clr Calc Pharmacy 57.5; Estimated Glomerular Filt Rate 45; Glucose Random 111 mg/dL (60-115); Potassium 4.1 mmol/L (3.3-5.1); Sodium 143 mmol/L (135-145)
[2020-10-17 23:57] LABS: B Type Natriuretic Peptide 843 pg/mL (<100)
[2020-10-17 23:58] LABS: Troponin-I High Sensitivity 51.2 ng/L (<3.5-35.0)
[2020-10-18] VITALS (18 sets, daily range): BP systolic 119–180; BP diastolic 75–115; PULSE 54–80; RESP 16–20; TEMP 36.1–36.5; O2SAT 95–100; BMI 36.4
--- NOTE | 2020-10-18 00:04 | ED_ITS ---
HPI - SOB/Dyspnea General Chief Complaint: Dyspnea Stated Complaint: DIFF BREATHING Time Seen by Provider: 10/17/20 23:59 Source: patient and old records reviewed Mode of arrival: ambulatory Limitations: no limitations History of Present Illness MD elicited complaint: shortness of breath Pertinent past history: congestive heart failure Onset (ago): day(s) (last night) Context: occurred during exertion and other (hx of nonischemic cardiomyopathy admitted recently 10/05 to 10/06 responded quickly to IV lasix) Timing: constant and progressively worsening Severity: similar to previous episodes Exacerbating factors: lying flat and exertion Relieving factors: upright position Known history of: congestive heart failure Associated symptoms: orthopnea Treatment prior to arrival: none Related Data Home Medications Medication Instructions Recorded Confirmed furosemide 20 mg PO BEDTIME 03/20/20 10/05/20 spironolactone 25 mg PO BEDTIME 03/20/20 10/05/20 carvedilol 1 tab PO BID 10/05/20 10/05/20 Allergies Allergy/AdvReac Type Severity Reaction Status Date / Time No Known Allergies Allergy Verified 09/13/20 03:21 [No Known Allergies*] Review of Systems Review of Systems: Constitutional : No Fever, No Chills ENT/Mouth : No sore throat, No Rhinorrhea, No Swallowing Difficulty Eyes: No Eye Pain, No Swelling, No Redness Cardiovascular : No Chest Pain, positive SOB, pos Orthopnea, positive Edema Respiratory : No Cough, No Sputum, No Wheezing, positive dyspnea Gastrointestinal : No Nausea, No Vomiting, No Diarrhea, No abdominal Pain, No Hematochezia, No Melena Genitourinary : No Dysuria, No Urinary Frequency, No Hematuria Musculoskeletal : No joint pain, No Myalgias Skin : No Skin Lesions, No rash Neuro : No Weakness, No Numbness, No Dizziness, No Headache Psych : No Anxiety/Panic, No Depression Heme/Lymph: No Bruising, No Lymphadenopathy Endocrine : No Polyuria, No Polydipsia All other systems reviewed and are negative [facility] Past Medical History Attestation statement: The following information was validated with the patient. Medical History Cardiac defibrillator in place CKD (chronic kidney disease), stage II Hypertension NICM (nonischemic cardiomyopathy) NSVT (nonsustained ventricular tachycardia) Renal infarct Family History Family History Other CAD (coronary artery disease) Social History Social History Household Members: Spouse Housing: Apartment Do you presently have visiting nurse or other home services: No Alcohol intake: never Patient Tobacco Use Status: Never used Tobacco Advance Directives: Yes Advance Directives on File: Yes Advance Directives Date on File: 03/20/20 service: Yes Current occupational status: employed Physical Exam Vital Signs: Vital Signs: Last Vital Signs Temp 97.0 F 10/17/20 22:50 Pulse 86 10/17/20 22:50 Resp 20 10/17/20 22:50 BP 173/87 H 10/18/20 00:37 Pulse Ox 97 10/17/20 22:50 Body Mass Index 39.6 Appearance: Alert. Oriented X3. No acute distress. Eyes: Pupils equal, round and reactive to light. ENT: Pharynx normal. Neck: Normal inspection. Neck supple. CVS: Normal heart rate and rhythm. Pulses normal. Respiratory: No respiratory distress. Breath sounds bases with rales Abdomen: Soft and nontender. Skin: Skin warm and dry. Normal skin color. Normal skin turgor. Extremities: 1 to 2+ pitting lower extremity edema. No calf ttp Neuro: Oriented X 3. No motor deficit. No sensory deficit. Course Course Course Narrative: plan to admit for cardiology consult as well he is supposed to see [facility] as outpatient [facility]/Dys[facility] MDM Narrative Medical decision making narrative: 60 yo male with known nonischemic cardiomyopathy, CKF, HTN - here with pitting edema, orthopnea, elevated blood pressures at this time will need nitro paste, IV lasix - concern for CHF exacerbation at this time, planned admit, compliant with 20mg of lasix daily, is supposed to see Jeramie as outpatient. Lab Data Result diagrams: 10/17/20 23:18 10/17/20 23:18 Labs: Lab Results 10/17/20 10/17/20 10/17/20 Range/Units 23:18 23:18 23:18 WBC 6.6 (4.8-10.8) X10*3/uL RBC 4.29 L (4.60-5.80) X10*6/uL Hgb 12.9 L (14.0-18.0) g/dl Hct 38.3 L (42-52) % MCV 89.3 (80-98) fL MCH 30.1 (27.0-33.0) pg MCHC 33.7 (31.0-36.0) g/dl RDW 12.7 (11.0-16.0) % Plt Count 281 (160-400) X10*3/uL MPV 10.8 (9.4-12.4) fL Immature Gran % (Auto) 0.3 (0.0-0.4) % Neut % (Auto) 58.5 (45-73) % Lymph % (Auto) 28.0 (20-40) % [place] % (Auto) 9.9 (2-11) % Eos % (Auto) 2.7 (0-4) % Baso % (Auto) 0.6 (0-2) % Lymph # (Auto) 1.8 (1.2-4.9) X10*3/uL [place] # (Auto) 0.7 (0.1-1.2) X10*3/uL Eos # (Auto) 0.2 (0.0-0.4) X10*3/uL Baso # (Auto) 0.0 (0.0-0.2) X10*3/uL Abs Immat Gran (auto) 0.02 (0.00-0.03) X10*3/uL Absolute Neuts (auto) 3.9 (2.0-8.3) X10*3/uL Absolute Nucleated RBC 0.000 (0.0-0.012) X10*3/uL Nucleated RBC % (auto) 0.0 (0.0-0.2) /100WBC Hold Blue Top SEE NOTE Sodium 143 (135-145) mmol/L Potassium 4.1 (3.3-5.1) mmol/L Chloride 113 H (96-108) mmol/L Carbon Dioxide 21 L (22-29) mmol/L Anion Gap 13 (12-20) BUN 28 H (9-16) mg/dL Creatinine 1.56 H (0.5-1.4) mg/dL Estim Creat Clear Calc 57.5 Estimated GFR 45 Random Glucose 111 (60-115) mg/dL Calcium 9.1 (8.4-10.2) mg/dL Troponin I High Sens (<3.5-35.0) ng/L B-Natriuretic Peptide (<100) pg/mL 10/17/20 Range/Units 23:18 WBC (4.8-10.8) X10*3/uL RBC (4.60-5.80) X10*6/uL Hgb (14.0-18.0) g/dl Hct (42-52) % MCV (80-98) fL MCH (27.0-33.0) pg MCHC (31.0-36.0) g/dl RDW (11.0-16.0) % Plt Count (160-400) X10*3/uL MPV (9.4-12.4) fL Immature Gran % (Auto) (0.0-0.4) % Neut % (Auto) (45-73) % Lymph % (Auto) (20-40) % [place] % (Auto) (2-11) % Eos % (Auto) (0-4) % Baso % (Auto) (0-2) % Lymph # (Auto) (1.2-4.9) X10*3/uL [place] # (Auto) (0.1-1.2) X10*3/uL Eos # (Auto) (0.0-0.4) X10*3/uL Baso # (Auto) (0.0-0.2) X10*3/uL Abs Immat Gran (auto) (0.00-0.03) X10*3/uL Absolute Neuts (auto) (2.0-8.3) X10*3/uL Absolute Nucleated RBC (0.0-0.012) X10*3/uL Nucleated RBC % (auto) (0.0-0.2) /100WBC Hold Blue Top Sodium (135-145) mmol/L Potassium (3.3-5.1) mmol/L Chloride (96-108) mmol/L Carbon Dioxide (22-29) mmol/L Anion Gap (12-20) BUN (9-16) mg/dL Creatinine (0.5-1.4) mg/dL Estim Creat Clear Calc Estimated GFR Random Glucose (60-115) mg/dL Calcium (8.4-10.2) mg/dL Troponin I High Sens 51.2 H* D (<3.5-35.0) ng/L B-Natriuretic Peptide 843 H (<100) pg/mL ECG Data Attestation: I personally reviewed and interpreted this ECG as follows: ECG interpretation date: 10/18/20 ECG interpretation time: 00:41 Interpretation: Rate: 83 Rhythm: NSR with PVCs [place]: left, LVH Normal P waves. Normal BRUNO. Normal QRS complex. ST T wave : no DANIELLA, inverted in lateral leads qTC: normal prior studies: no acute changes, no acute ischemia The study has been interpreted contemporaneously by me. . Discharge Plan Discharge Clinical Impression: Uncontrolled hypertension Congestive heart failure Qualifiers: Heart failure type: unspecified Heart failure chronicity: acute on chronic Qualified Code(s): I50.9 - Heart failure, unspecified Patient Disposition: Admitted As Inpatient
[2020-10-18] MEDS: Nitroglycerin 2 % Oint 1 GM Packet 0.5 INCH TRANSDERMA (00:26)
[2020-10-18] MEDS: Furosemide 40 MG/4 ML VIAL IVPUSH ×3 (00:26→17:10)
--- NOTE | 2020-10-18 00:36 | PC.NURSE ---
HL PLACED TO RAC, PT MEDICATED PER EMAR. PT ON MONITOR. VS OBTAINED. PT PO 98% ON RA. WILL CONTINUE TO MONITOR PT.
--- NOTE | 2020-10-18 00:46 | P.HPHOSP_ITS ---
History of Present Illness Date of Service: 10/18/20 Chief Complaint: SOB 60-year-old male with a past medical history of hypertension, hyperlipidemia, CHF with EF of 20-25%, status post AICD, history of renal infarct, chronic kidney disease presented to the hospital with a chief complaint of shortness of breath. Patient mentioned that for the past few days he has been having shortness of breath which has been gradually worsening, noted dyspnea on exertion also complains of orthopnea. Complains of leg swelling. Denies any fever chills. Denies any cough. Denies any GI or symptoms. Reports he has been compliant with home medications. Patient mentions the wanted to changes Cardiology and has an appointment coming with Dr. Bobo; Patient was recently admitted to the hospital for acute CHF exacerbation. Patient currently on 20 mg of Lasix at home. Denies any chest pain palpitations lightheadedness or dizziness. Review of all other systems is negative except mentioned above ER course: Per ER team patient noted to be short of breath on presentation, proBNP elevated, troponin slightly elevated, EKG nonischemic-noted old EKG changes; patient denies any chest pain. Patient was given nitro patch and Lasix in the ER. Admitted to the hospital for further management [facility] Medical History (Updated 10/19/20 @ 13:50 by ANNALEE RomeroC) Cardiac defibrillator in place CKD (chronic kidney disease), stage II Hypertension NICM (nonischemic cardiomyopathy) NSVT (nonsustained ventricular tachycardia) Renal infarct Family History Other CAD (coronary artery disease) Social History Household Members: Spouse Housing: Apartment Do you presently have visiting nurse or other home services: No Alcohol intake: never Patient Tobacco Use Status: Never used Tobacco Advance Directives Date on File: 03/20/20 service: Yes Current occupational status: employed Meds Allergies Allergy/AdvReac Type Severity Reaction Status Date / Time No Known Allergies Allergy Verified 09/13/20 03:21 [No Known Allergies*] Active Medications: Current Medications Generic Name Dose Route Start Last Admin Trade Name Freq PRN Reason Stop Dose Admin Acetaminophen 650 mg 10/18/20 00:41 Acetaminophen 325 Mg Tablet PO Q6H PRN Pain, Mild (Pain Scale 1-3) Carvedilol 6.25 mg 10/18/20 09:00 Carvedilol 6.25 Mg Tablet PO BID REPLACED BY [facility] Protocol Enoxaparin Sodium 40 mg 10/18/20 00:45 Enoxaparin Sodium 40 Mg/0.4 Ml Syringe SUBCUT Q24H REPLACED BY [facility] Famotidine 20 mg 10/18/20 00:44 Famotidine 20 Mg Tablet PO DAILY PRN Acid Reflux Furosemide 40 mg 10/18/20 09:00 Furosemide 40 Mg/4 Ml Vial IVPUSH DAILY REPLACED BY [facility] Protocol Magnesium Hydroxide 30 ml 10/18/20 00:41 Milk Of Magnesia 30 Ml Oral.Susp PO DAILY PRN Constipation Nitroglycerin 0.4 mg 10/18/20 00:41 Nitroglycerin 0.4 Mg Tab.Subl SUBLINGUAL Q5M PRN Chest Pain Pharmacy Consult 1 each 10/18/20 00:03 Consult Rx Perform Med Rec MISCELLANE ONCE PRN Consult order Sacubitril/Valsartan 1 tab 10/18/20 09:00 Sacubitril/Valsartan 1 Tab Tablet PO BID REPLACED BY [facility] Protocol Senna 17.2 mg 10/18/20 00:41 Sennosides 8.6 Mg Tablet PO BEDTIME PRN Constipation Sodium Chloride 3 ml 10/18/20 08:00 0.9 % Sodium Chloride Flush 3 Ml [facility] Spironolactone 25 mg 10/18/20 21:00 Spironolactone 25 Mg Tablet PO BEDTIME REPLACED BY [facility] Protocol Home Medications Medication Instructions Recorded Confirmed Last Taken Type spironolactone 25 mg PO BEDTIME 03/20/20 10/18/20 03/18/20 History carvedilol 1 tab PO BID 10/05/20 10/18/20 1 Day Ago History ~10/17/20 famotidine 20 mg PO DAILY PRN 10/18/20 10/18/20 Unknown History zolpidem 5 mg PO BEDTIME PRN 10/18/20 10/18/20 Unknown History Physical Exam Vital Signs and Narrative: Vital Signs: Last Vital Signs Temp 97.0 F 10/17/20 22:50 Pulse 86 10/17/20 22:50 Resp 20 10/17/20 22:50 BP 173/87 H 10/18/20 00:37 Pulse Ox 97 10/17/20 22:50 Body Mass Index 39.6 Gen: Appears be in no acute distress; speaks in full sentences HEENT: NCAT, Moist mucosa. Pulmonary: Fine crackles at bases CVS: Normal S1-S2 Abdomen: BS+, Soft, Nontender Extremities: Warm well perfused; pedal edema present Neuro: Alert and awake. Results Labs CBC and Chem 7: 10/18/20 06:54 10/19/20 08:37 Labs: Laboratory Results - last 24 hr 10/17/20 10/17/20 10/17/20 23:18 23:18 23:18 MCV 89.3 MCH 30.1 MCHC 33.7 RDW 12.7 Plt Count 281 MPV 10.8 Immature Gran % (Auto) 0.3 Neut % (Auto) 58.5 Lymph % (Auto) 28.0 [place] % (Auto) 9.9 Eos % (Auto) 2.7 Baso % (Auto) 0.6 Lymph # (Auto) 1.8 [place] # (Auto) 0.7 Eos # (Auto) 0.2 Baso # (Auto) 0.0 Abs Immat Gran (auto) 0.02 Absolute Neuts (auto) 3.9 Absolute Nucleated RBC 0.000 Nucleated RBC % (auto) 0.0 Hold Blue Top SEE NOTE Anion Gap 13 Estim Creat Clear Calc 57.5 Estimated GFR 45 Random Glucose 111 Calcium 9.1 Troponin I High Sens B-Natriuretic Peptide 10/17/20 23:18 MCV MCH MCHC RDW Plt Count MPV Immature Gran % (Auto) Neut % (Auto) Lymph % (Auto) [place] % (Auto) Eos % (Auto) Baso % (Auto) Lymph # (Auto) [place] # (Auto) Eos # (Auto) Baso # (Auto) Abs Immat Gran (auto) Absolute Neuts (auto) Absolute Nucleated RBC Nucleated RBC % (auto) Hold Blue Top Anion Gap Estim Creat Clear Calc Estimated GFR Random Glucose Calcium Troponin I High Sens 51.2 H* D B-Natriuretic Peptide 843 H Imaging Radiologist's Impressions: Impressions Chest X-Ray 10/17/20 22:56 IMPRESSION: Congestive heart failure and interstitial edema. Assessment and Plan (1) Congestive heart failure: Qualifiers: Heart failure chronicity: acute on chronic Heart failure type: unspecified Qualified Code(s): I50.9 - Heart failure, unspecified Status: Acute 60-year-old male with a past medical history of hypertension, nonischemic cardiomyopathy with EF of 20-25%, status post AICD, CKD, recent admission to the hospital for CHF exacerbation presented with chief complaint of shortness of breath. Noted to be in CHF exacerbation. Acute on chronic CHF exacerbation: Patient EF of 20-25%. Patient has AICD. Continue Lasix 40 mg IV daily Daily weights and I's and O's Cardiology consult Continue home carvedilol and Entresto. Hold Aldactone for now. Elevated troponin: Likely demand versus reduced clearance. EKG unchanged. Patient denies any chest pain. DVT prophylaxis: Lovenox Code status: Full code Quality Stroke Does the patient have a stroke diagnosis?: No VTE Prior VTE?: No VTE Risk Level:: Medical - moderate - high VTE Device Contraindication: N/A - Device Ordered VTE Drug Contraindication: N/A - Med Ordered
[2020-10-18 01:01] LABS: Glucose Urine UA NEG (NEG); Leukocyte Esterase Urine NEG (NEG); Nitrite Urine NEG (NEG); Specific Gravity - Urine 1.015 (1.005-1.025); Urine Blood TRACE (NEG); Urine Ketones NEG (NEG); Urine Protein NEG (NEG-TRACE)
[2020-10-18 01:03] LABS: Appearance Urine CLEAR; Color Urine STRAW
[2020-10-18 01:09] LABS: RBC Urine 0 /HPF (0); WBC Urine 0 /HPF (0-4)
[2020-10-18 01:13] LABS: COVID-19 Test Negative (Negative); IDNOW Serial# 9DD0AD1C
[2020-10-18 01:39] LABS: Troponin-I High Sensitivity 49.7 ng/L (<3.5-35.0)
[2020-10-18] MEDS: Enoxaparin Sodium 40 MG/0.4 ML SYRINGE SUBCUT (02:00)
--- NOTE | 2020-10-18 02:55 | PC.NURSE ---
HOSPITALIST IN ROOM FOR EVAL. PT DENIES ANY COMPLAINTS AT THIS TIME. PT URINATES IN URINAL, EMPTIED 1000 ML OF CLEAR YELLOW URINE. PT AWAITING FOR ROOM ASSIGNMENT. PT REMAINS ON MONITOR. WILL CONTINUE TO MONITOR PT.
[2020-10-18 07:11] LABS: MANUAL DIFF FLAG NO
[2020-10-18 07:24] LABS: Basophils Percent Auto 0.6 % (0-2); Eosinophils Absolute Auto 0.2 X10*3/uL (0.0-0.4); Eosinophils Percent Auto 2.4 % (0-4); Hematocrit 40.2 % (42-52); Hemoglobin 13.3 g/dl (14.0-18.0); Imm Gran Abs Auto 0.01 X10*3/uL (0.00-0.03); Imm Gran Pct Auto 0.1 % (0.0-0.4); Lymphocytes Absolute Auto 2.1 X10*3/uL (1.2-4.9); Lymphocytes Percent Auto 30.6 % (20-40); Mean Corpuscular HGB Conc 33.1 g/dl (31.0-36.0); Mean Corpuscular Hemoglobin 29.8 pg (27.0-33.0); Mean Corpuscular Volume 90.1 fL (80-98); Mean Platelet Volume 11.3 fL (9.4-12.4); Monocytes Absolute Auto 0.8 X10*3/uL (0.1-1.2); Monocytes Percent Auto 11.7 % (2-11); Neutrophils Absolute Auto 3.7 X10*3/uL (2.0-8.3); Neutrophils Percent Auto 54.6 % (45-73); Platelet Count 285 X10*3/uL (160-400); Red Blood Count 4.46 X10*6/uL (4.60-5.80); Red Cell Distribution Width 12.7 % (11.0-16.0); White Blood Count 6.8 X10*3/uL (4.8-10.8)
[2020-10-18] MEDS: carvediloL 6.25 MG TABLET PO ×2 (07:47→20:04)
[2020-10-18 08:15] LABS: Anion Gap 11 (12-20); Blood Urea Nitrogen 28 mg/dL (9-16); Calcium 9.5 mg/dL (8.4-10.2); Carbon Dioxide 24 mmol/L (22-29); Chloride 112 mmol/L (96-108); Creatinine Clr Calc Pharmacy 53.3; Estimated Glomerular Filt Rate 42; Glucose Random 106 mg/dL (60-115); Potassium 5.3 mmol/L (3.3-5.1); Sodium 142 mmol/L (135-145)
--- NOTE | 2020-10-18 09:00 | PC.NURSE ---
lungs - diminshed all lobes.
[2020-10-18] MEDS: 0.9 % Sodium Chloride Flush 3 ML SYRINGE IVFLUSH ×2 (09:02→17:10)
[2020-10-18] MEDS: Sacubitril/Valsartan 24/26 1 TAB TABLET PO ×2 (09:02→20:05)
--- NOTE | 2020-10-18 09:54 | MHC.CM.PN ---
Attempted to meet with patient in regards to discharge planning. Patient currently sleeping. No family present. Will attempt to meet again. Continue to monitor for d/c needs.
[2020-10-18] MEDS: amLODIPine Besylate 10 MG TABLET PO (10:37)
--- NOTE | 2020-10-18 10:39 | PC.NURSE ---
urine output 900ml clear yellow urine in urinal.
--- NOTE | 2020-10-18 10:40 | PC.NURSE ---
dr. lee (kennel technician) at bedside, pt aware of plan of care for admission to hosp.
--- NOTE | 2020-10-18 11:03 | PM.CNCAR ---
History of Present Illness History of Present Illness Date of Service: 10/18/20 Requesting physician: Manan Bateman Chief complaint: CHF Narrative: 60-year-old gentleman who has been following up at [facility] for heart failure. He has background history of nonischemic cardiomyopathy and had ICD placement in May 2020.. He was seen at [facility] in February 2020 when he presented with elevated blood pressures and chest discomfort. He was managed with blood pressure control and was discharged to follow up with [facility]. He said he also got admitted at [facility] where his medications were adjusted and most of the medications were stopped many months ago. He is now presenting with significantly elevated blood pressure, shortness of breath, orthopnea and PND. He is unable to lay flat. Clinically in heart failure. Blood pressure control is quite poor at this point. At home he was taking carvedilol 6.25 mg twice a day, furosemide 20 mg daily, spironolactone 25 mg at bedtime. No chest discomfort. EKG reviewed showing sinus rhythm, interventricular conduction delay and frequent premature ventricular complexes. [facility] Past Medical History Medical History Cardiac defibrillator in place CKD (chronic kidney disease), stage II Hypertension NICM (nonischemic cardiomyopathy) NSVT (nonsustained ventricular tachycardia) Renal infarct Family History Family History Other CAD (coronary artery disease) Social History Social History Household Members: Spouse Housing: Apartment Do you presently have visiting nurse or other home services: No Alcohol intake: never Patient Tobacco Use Status: Never used Tobacco Use of substances other than those prescribed or required for medical reasons: No Advance Directives: Yes Advance Directives on File: Yes Advance Directives Date on File: 03/20/20 service: Yes Current occupational status: employed Meds Allergies Allergy/AdvReac Type Severity Reaction Status Date / Time No Known Allergies Allergy Verified 09/13/20 03:21 [No Known Allergies*] Active Medications: Current Medications Generic Name Dose Route Start Last Admin Trade Name Freq PRN Reason Stop Dose Admin Acetaminophen 650 mg 10/18/20 00:41 Acetaminophen 325 Mg Tablet PO Q6H PRN Pain, Mild (Pain Scale 1-3) Amlodipine Besylate 10 mg 10/18/20 10:15 10/18/20 10:37 Amlodipine Besylate 10 Mg Tablet PO 10 mg DAILY [facility] Administration Protocol Carvedilol 6.25 mg 10/18/20 09:00 10/18/20 07:47 Carvedilol 6.25 Mg Tablet PO 6.25 mg BID [facility] Administration Protocol Enoxaparin Sodium 40 mg 10/18/20 01:00 10/18/20 02:00 Enoxaparin Sodium 40 Mg/0.4 Ml Syringe SUBCUT 40 mg Q24H [facility] Administration Famotidine 20 mg 10/18/20 00:44 Famotidine 20 Mg Tablet PO DAILY PRN Acid Reflux Furosemide 40 mg 10/18/20 08:00 10/18/20 07:50 Furosemide 40 Mg/4 Ml Vial IVPUSH 40 mg DAILY@0800 [facility] Administration Protocol Magnesium Hydroxide 30 ml 10/18/20 00:41 Milk Of Magnesia 30 Ml Oral.Susp PO DAILY PRN Constipation Nitroglycerin 0.4 mg 10/18/20 00:41 Nitroglycerin 0.4 Mg Tab.Subl SUBLINGUAL Q5M PRN Chest Pain Pharmacy Consult 1 each 10/18/20 00:03 Consult Rx Perform Med Rec MISCELLANE ONCE PRN Consult order Sacubitril/Valsartan 1 tab 10/18/20 21:00 Sacubitril/Valsartan 49/51 1 Tab Tablet PO BID [facility] Protocol Senna 17.2 mg 10/18/20 00:41 Sennosides 8.6 Mg Tablet PO BEDTIME PRN Constipation Sodium Chloride 3 ml 10/18/20 08:00 10/18/20 09:02 0.9 % Sodium Chloride Flush 3 Ml Syringe IVFLUSH 3 ml QSHIFT [facility] Administration Spironolactone 25 mg 10/18/20 21:00 Spironolactone 25 Mg Tablet PO BEDTIME [facility] Protocol Home Medications Medication Instructions Recorded Confirmed Last Taken Type furosemide 20 mg PO DAILY 03/20/20 10/18/20 03/18/20 History spironolactone 25 mg PO BEDTIME 03/20/20 10/18/20 03/18/20 History carvedilol 1 tab PO BID 10/05/20 10/18/20 1 Day Ago History ~10/17/20 amlodipine 10 mg PO DAILY 10/18/20 10/18/20 Unknown History famotidine 20 mg PO DAILY PRN 10/18/20 10/18/20 Unknown History zolpidem 5 mg PO BEDTIME PRN 10/18/20 10/18/20 Unknown History Physical Exam Vital Signs: Vital Signs: Last Vital Signs Temp 97.6 F 10/18/20 08:57 Pulse 55 10/18/20 10:57 Resp 17 10/18/20 10:57 BP 180/88 H 10/18/20 10:57 Pulse Ox 99 10/18/20 10:57 Body Mass Index 36.4 GENERAL APPEARANCE: in no acute distress, pleasant. NECK: no carotid bruit, + jugular venous distention. SKIN: no suspicious lesions, warm and dry. HEART: no murmurs, regular rate and rhythm. LUNGS: clear to auscultation bilaterally. ABDOMEN: soft, nontender. EXTREMITIES: no edema. PERIPHERAL PULSES: equal. NEUROLOGIC: No gross deficits, AAO X 3 Results Labs and Meds Result diagrams: 10/18/20 06:54 10/18/20 06:54 Lab results: Laboratory Results - last 24 hr 10/17/20 10/17/20 10/17/20 23:18 23:18 23:18 WBC 6.6 RBC 4.29 L Hgb 12.9 L Hct 38.3 L MCV 89.3 MCH 30.1 MCHC 33.7 RDW 12.7 Plt Count 281 MPV 10.8 Immature Gran % (Auto) 0.3 Neut % (Auto) 58.5 Lymph % (Auto) 28.0 [place] % (Auto) 9.9 Eos % (Auto) 2.7 Baso % (Auto) 0.6 Lymph # (Auto) 1.8 [place] # (Auto) 0.7 Eos # (Auto) 0.2 Baso # (Auto) 0.0 Abs Immat Gran (auto) 0.02 Absolute Neuts (auto) 3.9 Absolute Nucleated RBC 0.000 Nucleated RBC % (auto) 0.0 Hold Blue Top SEE NOTE Sodium 143 Potassium 4.1 Chloride 113 H Carbon Dioxide 21 L Anion Gap 13 BUN 28 H Creatinine 1.56 H Estim Creat Clear Calc 57.5 Estimated GFR 45 Random Glucose 111 Calcium 9.1 Troponin I High Sens B-Natriuretic Peptide Urine Color Urine Appearance Urine pH Ur Specific [place] Urine Protein Urine Glucose (UA) Urine Ketones Urine Blood Urine Nitrite Ur Leukocyte Esterase Urine RBC Urine WBC Ur Squamous Epith Cells Urine Bacteria COVID-19 ([facility]) COVID-19 Clin Com 10/17/20 10/18/20 10/18/20 23:18 00:48 00:48 WBC RBC Hgb Hct MCV MCH MCHC RDW Plt Count MPV Immature Gran % (Auto) Neut % (Auto) Lymph % (Auto) [place] % (Auto) Eos % (Auto) Baso % (Auto) Lymph # (Auto) [place] # (Auto) Eos # (Auto) Baso # (Auto) Abs Immat Gran (auto) Absolute Neuts (auto) Absolute Nucleated RBC Nucleated RBC % (auto) Hold Blue Top Sodium Potassium Chloride Carbon Dioxide Anion Gap BUN Creatinine Estim Creat Clear Calc Estimated GFR Random Glucose Calcium Troponin I High Sens 51.2 H* D 49.7 H* B-Natriuretic Peptide 843 H Urine Color Urine Appearance Urine pH Ur Specific [place] Urine Protein Urine Glucose (UA) Urine Ketones Urine Blood Urine Nitrite Ur Leukocyte Esterase Urine RBC Urine WBC Ur Squamous Epith Cells Urine Bacteria COVID-19 ([facility]) Negative COVID-19 [employer] Com See Note 10/18/20 10/18/20 10/18/20 00:48 06:54 06:54 WBC 6.8 RBC 4.46 L Hgb 13.3 L Hct 40.2 L MCV 90.1 MCH 29.8 MCHC 33.1 RDW 12.7 Plt Count 285 MPV 11.3 Immature Gran % (Auto) 0.1 Neut % (Auto) 54.6 Lymph % (Auto) 30.6 [place] % (Auto) 11.7 H Eos % (Auto) 2.4 Baso % (Auto) 0.6 Lymph # (Auto) 2.1 [place] # (Auto) 0.8 Eos # (Auto) 0.2 Baso # (Auto) 0.0 Abs Immat Gran (auto) 0.01 Absolute Neuts (auto) 3.7 Absolute Nucleated RBC 0.000 Nucleated RBC % (auto) 0.0 Hold Blue Top Sodium 142 Potassium 5.3 H D Chloride 112 H Carbon Dioxide 24 Anion Gap 11 L BUN 28 H Creatinine 1.68 H Estim Creat Clear Calc 53.3 Estimated GFR 42 Random Glucose 106 Calcium 9.5 Troponin I High Sens B-Natriuretic Peptide Urine Color STRAW Urine Appearance CLEAR Urine pH 6.0 Ur Specific [place] 1.015 Urine Protein NEG Urine Glucose (UA) NEG Urine Ketones NEG Urine Blood TRACE Urine Nitrite NEG Ur Leukocyte Esterase NEG Urine RBC 0 Urine WBC 0 Ur Squamous Epith Cells NONE Urine Bacteria NONE COVID-19 ([facility]) COVID-19 Clin Com Imaging Radiologist's impression: Impressions Chest X-Ray 10/17/20 22:56 IMPRESSION: Congestive heart failure and interstitial edema. Assessment and Plan (1) Congestive heart failure: Qualifiers: Heart failure chronicity: acute on chronic Heart failure type: unspecified Qualified Code(s): I50.9 - Heart failure, unspecified Status: Acute (2) Uncontrolled hypertension: Status: Acute Pleasant 58-year-old gentleman with known history of cardiomyopathy. He had workup done at [facility] and reports that cardiac catheterization did not show any coronary disease. He has presented before to us in March 2020 with elevated blood pressures and chest pain. He is presenting again with significantly elevated blood pressures and congestive heart failure. Clinically is volume overloaded. He is on 40 mg IV Lasix and diuresing well. I think he should get 1 more dose of IV diuretics in the afternoon. From blood pressure point of view he is on carvedilol 6.25 mg twice a day which should be continued at the same dose and should not be titrated given him being volume overloaded right now. Agree with Oswaldo. He has also been given amlodipine 10 mg once a day. I think we will see how he reacts to this regimen. We will monitor electrolytes closely and replete as needed. Thank you for allowing me to participate in the care of your patient. Please feel free to contact me if you have any questions. Procedures Date of Service Date of Service: 10/18/20
--- NOTE | 2020-10-18 14:06 | PC.NURSE ---
NURSE TO NURSE GIVEN TO BURTON (RN), PT AWARE OF PLAN OF CARE FOR ADMISSION TO HOSP.
--- NOTE | 2020-10-18 14:24 | PC.NURSE ---
urinal output - 600ml clear yellow urine.
[2020-10-18] MEDS: Acetaminophen 325 MG TABLET 650 MG PO (20:03)
[2020-10-18] MEDS: Spironolactone 25 MG TABLET PO (20:04)
[2020-10-18 21:13] LABS: Anion Gap 14 (12-20); Blood Urea Nitrogen 31 mg/dL (9-16); Calcium 9.5 mg/dL (8.4-10.2); Carbon Dioxide 27 mmol/L (22-29); Chloride 103 mmol/L (96-108); Estimated Glomerular Filt Rate 44; Glucose Random 77 mg/dL (60-115); Magnesium 2.1 mg/dL (1.6-2.6); Sodium 140 mmol/L (135-145)
[2020-10-19] MEDS: 0.9 % Sodium Chloride Flush 3 ML SYRINGE IVFLUSH ×2 (00:36→08:47)
[2020-10-19] MEDS: Enoxaparin Sodium 40 MG/0.4 ML SYRINGE SUBCUT (00:37)
[2020-10-19 04:00] VITALS: BP 137/93; PULSE 62; RESP 16; TEMP 36.3; O2SAT 99
[2020-10-19 05:26] VITALS: BMI 38.7
[2020-10-19 08:00] VITALS: BP 139/73; PULSE 78; RESP 19; TEMP 35.8; O2SAT 100
[2020-10-19 08:42] VITALS: BP 139/73; PULSE 78
[2020-10-19] MEDS: amLODIPine Besylate 10 MG TABLET PO (08:42)
[2020-10-19 08:43] VITALS: BP 139/73; PULSE 78
[2020-10-19] MEDS: carvediloL 6.25 MG TABLET PO (08:43)
[2020-10-19] MEDS: Sacubitril/Valsartan 24/26 1 TAB TABLET PO (08:43)
[2020-10-19 09:36] LABS: Anion Gap 10 (12-20); Blood Urea Nitrogen 34 mg/dL (9-16); Calcium 9.7 mg/dL (8.4-10.2); Carbon Dioxide 29 mmol/L (22-29); Chloride 107 mmol/L (96-108); Creatinine Clr Calc Pharmacy 50.3; Estimated Glomerular Filt Rate 39; Glucose Random 91 mg/dL (60-115); Potassium 4.2 mmol/L (3.3-5.1); Sodium 142 mmol/L (135-145)
--- NOTE | 2020-10-19 09:38 | MHC.CM.PN ---
CM met with Patient at bedside. Patient lives in an apartment with his /HCP/RIVERA at [phone] and he had no prior services nor DME. Patient's goal is to return home/no services and CM has initiated and will follow for dc planning. PCP is Dr. Jessica Alan at [facility].
[2020-10-19 11:50] VITALS: BP 124/59; PULSE 71; RESP 20; TEMP 36.1; O2SAT 99
--- NOTE | 2020-10-19 13:42 | P.PNCA_ITS ---
Subjective Subjective Date of Service: 10/19/20 <KARON Romero - Last Filed: 10/19/20 13:58> 10/19/20 <Ovidio Bobo MD - Last Filed: 10/19/20 14:01> Principal diagnosis: CHF, CMP <KARON Romero - Last Filed: 10/19/20 13:58> Interval history: Cardiology follow up for CHF. Seen at 1300. Today he reports feeling good, Breathing much improved since admit. No chest pains, palpitation. No leg edema. Walking in room. Family member present. He reports feeling well enough to go home. <KARNO Romero - Last Filed: 10/19/20 13:58> Review of Systems Review of Systems as above <KARON Romero - Last Filed: 10/19/20 13:58> Yes all other systems are reviewed and are negative <KARON Romero - Last Filed: 10/19/20 13:58> Physical Exam Vital Signs: Last Vital Signs Temp 96.9 F 10/19/20 11:50 Pulse 71 10/19/20 11:50 Resp 20 10/19/20 11:50 BP 124/59 L 10/19/20 11:50 Pulse Ox 99 10/19/20 11:50 Body Mass Index 38.7 <KARON Romero - Last Filed: 10/19/20 13:58> Const General: cooperative, no acute distress, alert and awake <KARON Romero - Last Filed: 10/19/20 13:58> Orientation/consciousness: patient oriented x3 <KARON Romero - Last Filed: 10/19/20 13:58> Neck Neck: Yes normal visual inspection and Yes no JVD <KARON Romero Last Filed: 10/19/20 13:58> Resp Effort & Inspection: normal respiratory effort, able to speak in complete sentences and not labored <KARON Romero - Last Filed: 10/19/20 13:58> Auscultation: clear to auscultation bilaterally, no crackles, no rales, no rhonchi and no wheezes <ANNALEE RomeroC - Last Filed: 10/19/20 13:58> Cardio Jugular venous distension: JVD present <ANNALEE RomeroC - Last Filed: 10/19/20 13:58> Palpation: normal PMI <ANNALEE RomeroC - Last Filed: 10/19/20 13:58> Rate: regular rate <ANNALEE RomeroC - Last Filed: 10/19/20 13:58> Rhythm: regular rhythm <ANNALEE RomeroC - Last Filed: 10/19/20 13:58> Heart sounds: S1 normal heart sound present and S2 normal heart sound present <ANNALEE Romero - Last Filed: 10/19/20 13:58> Peripheral pulses: Peripheral pulses 2+ throughout <ANNALEE RomeroC - Last Filed: 10/19/20 13:58> GI Inspection: Yes normal to inspection <ANNALEE RomeroC - Last Filed: 10/19/20 13:58> Neuro General: patient oriented x3 <ANNALEE RomeroC - Last Filed: 10/19/20 13:58> Extrem General: Yes normal to inspection and No edema <ANNALEE RomeroC - Last Filed: 10/19/20 13:58> Results Labs and Meds Result diagrams: : 10/18/20 06:54 10/19/20 08:37 <Leslie Nicholas ANNALEEC - Last Filed: 10/19/20 13:58> Lab results: Laboratory Results - last 24 hr 10/18/20 10/19/20 20:40 08:37 Sodium 140 142 Potassium 4.0 D 4.2 Chloride 103 107 Carbon Dioxide 27 29 Anion Gap 14 10 L BUN 31 H 34 H Creatinine 1.59 H 1.76 H Estim Creat Clear Calc 54.0 50.3 Estimated GFR 44 39 Random Glucose 77 91 Calcium 9.5 9.7 Magnesium 2.1 <Leslie Nicholas ANNALEEC - Last Filed: 10/19/20 13:58> Progress Note: A&P Assessment and plan (1) Acute on chronic systolic CHF (congestive heart failure): Status: Acute <Leslie Nicholas NP-C - Last Filed: 10/19/20 13:58> Assessment and Plan: Admit with sob, HTN. CXR showed CHF. BNP elevated to 843. Has hx of nonischemic CMP. He was given IV Lasix with improvement in condition. On exam today, has no clinical signs of acute HF. He can be discharged to home on Lasix 40mg po daily -home dose had been 20mg daily. We will arrange for outpt card iology follow up. <Leslie Nicholas NP-C - Last Filed: 10/19/20 13:58> (2) NICM (nonischemic cardiomyopathy): Status: Acute <Leslie Nicholas NP-C - Last Filed: 10/19/20 13:58> Assessment and Plan: ICD in place. Entresto added this admit. Will need BMP in 1 week. Continued on Carvedilol, aldactone. <Leslie Nicholas NP-C - Last Filed: 10/19/20 13:58> (3) Uncontrolled hypertension: Status: Acute <Leslie Nicholas NP-C - Last Filed: 10/19/20 13:58> Assessment and Plan: BP initially elevated. Entresto added, Diuresed with Lasix. BP this am 124/59. Continue with Entresto, po Lasix, Carvedilol, Amlodipine. <Leslie Nicholas, MICHELLE-C - Last Filed: 10/19/20 13:58> Fall Risk Details Current Medications: Current Medications Generic Name Dose Route Start Last Admin Trade Name Jacqui PRN Reason Stop Dose Admin Acetaminophen 650 mg 10/18/20 00:41 10/18/20 20:03 Acetaminophen 325 Mg Tablet PO 650 mg Q6H PRN Administration Pain, Mild (Pain Scale 1-3) Amlodipine Besylate 10 mg 10/18/20 10:15 10/19/20 08:42 Amlodipine Besylate 10 Mg Tablet PO 10 mg DAILY [facility] Administration Protocol Carvedilol 6.25 mg 10/18/20 09:00 10/19/20 08:43 Carvedilol 6.25 Mg Tablet PO 6.25 mg BID [facility] Administration Protocol Enoxaparin Sodium 40 mg 10/18/20 01:00 10/19/20 00:37 Enoxaparin Sodium 40 Mg/0.4 Ml Syringe SUBCUT 40 mg Q24H [facility] Administration Famotidine 20 mg 10/18/20 00:44 Famotidine 20 Mg Tablet PO DAILY PRN Acid Reflux Furosemide 40 mg 10/18/20 08:00 10/19/20 09:07 Furosemide 40 Mg/4 Ml Vial IVPUSH Not Given DAILY@0800 [facility] Protocol Magnesium Hydroxide 30 ml 10/18/20 00:41 Milk Of Magnesia 30 Ml Oral.Susp PO DAILY PRN Constipation Nitroglycerin 0.4 mg 10/18/20 00:41 Nitroglycerin 0.4 Mg Tab.Subl SUBLINGUAL Q5M PRN Chest Pain Pharmacy Consult 1 each 10/18/20 00:03 Consult Rx Perform Med Rec MISCELLANE ONCE PRN Consult order Sacubitril/Valsartan 1 tab 10/18/20 21:00 10/19/20 08:43 Sacubitril/Valsartan 1 Tab Tablet PO 1 tab BID [facility] Administration Protocol Senna 17.2 mg 10/18/20 00:41 Sennosides 8.6 Mg Tablet PO BEDTIME PRN Constipation Sodium Chloride 3 ml 10/18/20 08:00 10/19/20 08:47 0.9 % Sodium Chloride Flush 3 Ml Syringe IVFLUSH 3 ml QSHIFT [facility] Administration Spironolactone 25 mg 10/18/20 21:00 10/18/20 20:04 Spironolactone 25 Mg Tablet PO 25 mg BEDTIME [facility] Administration Protocol <KARON Romero - Last Filed: 10/19/20 13:58> Time Spent With Patient Time: Total time spent is greater than 50% in coordination of care (as documented) at patient's floor/unit and/or counseling patient: 20 <KARON Romero - Last Filed: 10/19/20 13:58> Time with patient: 15 - 24 minutes <KARON Romero - Last Filed: 10/19/20 13:58> Progress Note: Quality Stroke Does the patient have a stroke diagnosis?: No <KARON Romero - Last Filed: 10/19/20 13:58> Procedures Date of Service Date of Service: 10/19/20 <KARON Romero - Last Filed: 10/19/20 13:58>
--- NOTE | 2020-10-19 15:11 | P.DS_ITS ---
DS: Providers Provider Date of Service: 10/19/20 Date of admission: 10/18/20 00:41 Primary care physician: Unknown Physician Consults: 10/18/20 00:41 Consult to Cardiology Routine Consulting Provider: Ovidio Bobo Reason for consultation: CHF; NSVT DS: Diagnosis Discharge Diagnosis (1) Acute on chronic systolic CHF (congestive heart failure): Status: Acute (2) NICM (nonischemic cardiomyopathy): Status: Acute (3) Uncontrolled hypertension: Status: Acute DS: Medications Discharge Medications Home Medications: Home Medications Medication Instructions Recorded Confirmed furosemide 20 mg PO DAILY 03/20/20 10/18/20 spironolactone 25 mg PO BEDTIME 03/20/20 10/18/20 carvedilol 1 tab PO BID 10/05/20 10/18/20 amlodipine 10 mg PO DAILY 10/18/20 10/18/20 famotidine 20 mg PO DAILY PRN 10/18/20 10/18/20 zolpidem 5 mg PO BEDTIME PRN 10/18/20 10/18/20 DS: Summary Hospital Course Hospital Course: From H&P on day of admission 60-year-old male with a past medical history of hypertension, hyperlipidemia, CHF with EF of 20-25%, status post AICD, history of renal infarct, chronic kidney disease presented to the hospital with a chief complaint of shortness of breath. Patient mentioned that for the past few days he has been having shortness of breath which has been gradually worsening, noted dyspnea on exertion also complains of orthopnea. Complains of leg swelling. Denies any fever chills. Denies any cough. Denies any GI or symptoms. Reports he has been compliant with home medications. Patient mentions the wanted to changes Cardiology and has an appointment coming with Dr. Bobo; Patient was recently admitted to the hospital for acute CHF exacerbation. Patient currently on 20 mg of Lasix at home. Denies any chest pain palpitations lightheadedness or dizziness. Review of all other systems is negative except mentioned above Acute on chronic heart failure. Initially started on diuresis with IV Lasix. Patient was seen in consultation by Cardiology. His dyspnea, orthopnea and leg edema improved and his IV Lasix will be converted to p.o. Lasix. His heart failure was thought to be precipitated by uncontrolled hypertension. Will be discharged on oral Lasix, Aldactone, carvedilol, amlodipine, Entresto. Blood pressure has improved. He should call to schedule follow-up appointment with Cardiology. BMP should be rechecked in 1 week. Time Spent with Patient Time attestation: Total time spent providing and/or coordinating discharge services: Discharge coordination time: Greater than 30 minutes Quality: Stroke Does the patient have a stroke diagnosis?: No Physical Exam Vital Signs: Vital Signs: Last Vital Signs Temp 96.9 F 10/19/20 11:50 Pulse 71 10/19/20 11:50 Resp 20 10/19/20 11:50 BP 124/59 L 10/19/20 11:50 Pulse Ox 99 10/19/20 11:50 Body Mass Index 38.7 Const: Nutritional Appearance: well nourished Orientation/consciousness: patient oriented x3 HENMT: Head: Yes normocephalic and Yes atraumatic Eyes: Sclerae: sclerae normal Chest: Chest palpation & inspection: normal inspection of the chest Resp: Effort & Inspection: normal respiratory effort and no respiratory distress Auscultation: clear to auscultation bilaterally Cardio: Rate: regular rate Rhythm: regular rhythm GI: Palpation (GI): Soft to palpation and nontender Neuro: General: patient oriented x3 Cranial nerves: Yes CN's II-XII intact bilaterally and Yes Bilaterally intact EOM present DS: Data Data Completed and Pending Labs on day of discharge: Laboratory Results - last 24 hr 10/18/20 10/19/20 20:40 08:37 Sodium 140 142 Potassium 4.0 D 4.2 Chloride 103 107 Carbon Dioxide 27 29 Anion Gap 14 10 L BUN 31 H 34 H Creatinine 1.59 H 1.76 H Estim Creat Clear Calc 54.0 50.3 Estimated GFR 44 39 Random Glucose 77 91 Calcium 9.5 9.7 Magnesium 2.1 Discharge Plan Discharge Patient Disposition: Home, Self-Care Discharge Diagnosis: Acute on chronic heart failure Referrals: Physician,Unknown [Primary Care Provider] - 1 Week Discharge Medications: New Entresto 24-26 mg Tablet 1 tab PO BID 30 Days Qty: 60 RF: 0 Continued spironolactone 25 mg Tablet 25 mg PO BEDTIME RF: 0 carvedilol 6.25 mg tablet 1 tab PO BID RF: 0 famotidine 20 mg Tablet 20 mg PO DAILY PRN (Reason: Acid Reflux) RF: 0 amlodipine 10 mg Tablet 10 mg PO DAILY RF: 0 zolpidem 5 mg Tablet 5 mg PO BEDTIME PRN (Reason: Insomnia) RF: 0 Changed furosemide 20 mg Tablet 40 mg PO DAILY Qty: 0 RF: 0 Discharge Orders: Discharge Order (Routine); Ordered 10/19/20 Ordered By: Sharron Ryan Activity on Discharge: As tolerated Stand Alone Forms: Patient Portal Discharge page Other Ambulatory Orders: Basic Metabolic Panel (Routine) Timeframe: 1 Week Facility: [facility] - Location: Laboratory Ordered By: Sharron Ryan Care Plan Goals: See below Health Concerns: Acute on chronic heart failure uncontrolled HTN Plan of Treatment: you have been started on entresto. Your dose of Lasix has been increased. please take as prescribed. Continue to take the remainder of your medications as prescribed Call to schedule follow-up appointment with Cardiology You should have repeat labs drawn in 1 week Assessment: The discharge summary
--- NOTE | 2020-10-19 15:11 | MHC.CM.PN ---
Patient has been medically cleared for dc to home today, no services.
[2020-10-19 15:30] VITALS: BP 134/82; PULSE 61; RESP 20; TEMP 36.6; O2SAT 98
== END 2020-10-19 16:55 | disposition home or self-care (01) | DRG 291 ==
LOC: HO.ED 10-18 00:26 → HO.EDOVER 10-18 00:53 → HO.IMC 10-18 12:06
PROVIDERS: Physician Assistant Medical; Admitting Provider Hospitalist; Emergency Provider Emergency Medicine; PCP Internal Medicine; Visit Provider Family Medicine
DX: I13.0 Hypertensive heart and chronic kidney disease with heart failure and stage 1 through stage 4 chronic kidney disease, or unspecified chronic kidney disease (principal); I50.23 Acute on chronic systolic (congestive) heart failure; N18.2 Chronic kidney disease, stage 2 (mild); I42.8 Other cardiomyopathies; Z20.822 Contact with and (suspected) exposure to COVID-19; Z95.810 Presence of automatic (implantable) cardiac defibrillator; Z79.899 Other long term (current) drug therapy
CPT/HCPCS: 36415; 71045; 80048; 81001; 81003; 83735; 83880; 84484; 85025; 87635; 93005; 99285; J1650; J1940

== ENCOUNTER 2020-10-26 07:57 | Outpatient (REF) | payer OTHER, SELFPAY ==
[2020-10-26 08:56] LABS: Anion Gap 12 (12-20); Blood Urea Nitrogen 24 mg/dL (9-16); Calcium 8.6 mg/dL (8.4-10.2); Carbon Dioxide 25 mmol/L (22-29); Chloride 111 mmol/L (96-108); Estimated Glomerular Filt Rate 45; Glucose Random 106 mg/dL (60-115); Potassium 4.4 mmol/L (3.3-5.1); Sodium 144 mmol/L (135-145)
== END 2020-10-26 07:58 | disposition home or self-care (01) ==
LOC: HO.LAB 07:57
PROVIDERS: Absent Provider Internal Medicine Cardiovascular Disease; PCP Internal Medicine; Visit Provider Physician Assistant Medical
DX: I50.9 Heart failure, unspecified (principal)
CPT/HCPCS: 36415; 80048

== ENCOUNTER → 2020-11-02 14:34 | Outpatient (BNVA) | payer OTHER, SELFPAY | PROVIDERS: PCP Internal Medicine; Visit Provider Nurse Practitioner Family | DX: I13.0 Hypertensive heart and chronic kidney disease with heart failure and stage 1 through stage 4 chronic kidney disease, or unspecified chronic kidney disease (principal); N18.2 Chronic kidney disease, stage 2 (mild); I50.23 Acute on chronic systolic (congestive) heart failure; I42.8 Other cardiomyopathies; Z95.810 Presence of automatic (implantable) cardiac defibrillator | CPT/HCPCS: 99212 ==

== ENCOUNTER 2020-11-17 03:30 | Emergency (ER) | payer OTHER, SELFPAY ==
--- NOTE | ~2020-11-17 | CT_ITS ---
EXAMINATION: CT ABDOMEN AND PELVIS WITHOUT CONTRAST CLINICAL INFORMATION: Abdominal distention, right upper quadrant pain COMPARISON: 05/05/2019 TECHNIQUE: Multidetector volumetric imaging was performed from the superior aspect of the liver through the pubic symphysis. Sagittal and coronal reformatted images were obtained on the technologist's workstation. This CT examination was performed using dose optimization techniques as appropriate, variously including the following: *Automated exposure control *Adjustment of mA and/or kV according to patient size (this includes techniques or standardized protocols for targeted exams where dose is matched to indication/reason for exam; i.e. extremities or head) *Use of iterative reconstruction technique DLP: 825 mGy-cm FINDINGS: LUNG BASES: The visualized lung bases demonstrate small pleural effusions. Mild interstitial edema noted with interlobular septal thickening. LIVER, GALLBLADDER, AND BILIARY TREE: The liver is normal in size, shape, and attenuation. A few small hypodense lesions are redemonstrated in the right hepatic lobe, favoring cysts. No biliary ductal dilatation is present. Multiple gallstones are visualized. No significant or pericholecystic inflammation. PANCREAS: Unremarkable. SPLEEN: Unremarkable. ADRENAL GLANDS: Unremarkable. KIDNEYS AND URETERS: The kidneys are normal in size, shape, and attenuation. Small hypodensity off the lateral left kidney favors a cyst. Cortical thinning is noted in the lower left kidney. No hydronephrosis, hydroureter, or calculi seen. BLADDER: Unremarkable. GASTROINTESTINAL TRACT: Mild colonic diverticulosis is noted. The small and large bowel are otherwise unremarkable without evidence of obstruction or pericolonic inflammatory change. The appendix appears collapsed. No free fluid or free air is seen. ABDOMINAL WALL: No significant hernia is appreciated. LYMPH NODES: Normal. VASCULAR: Unremarkable. PELVIC VISCERA: Unremarkable. OSSEOUS STRUCTURES: Degenerative changes are noted in the spine. CT/CT abdomen pelvis wo con IMPRESSION: 1. Cholelithiasis. If there is clinical concern for cholecystitis, this would be best further assessed with ultrasound. 2. Mild interstitial edema at the lung bases and small pleural effusions.
--- NOTE | ~2020-11-17 | XR_ITS ---
EXAMINATION: XR CHEST CLINICAL INFORMATION: Shortness of breath COMPARISON: 10/17/2020 TECHNIQUE: Frontal view of the chest was obtained. FINDINGS: Left-sided AICD lead tip overlies the right ventricle. Lung volumes are symmetric. No focal consolidation is seen. There is mild interstitial prominence diffusely. No evidence of pneumothorax or significant pleural effusion. Cardiac silhouette remains mildly enlarged. No acute osseous findings are seen. XR/XR chest 1V IMPRESSION: Mild diffuse interstitial prominence suggesting interstitial edema.
--- NOTE | ~2020-11-17 | US_ITS ---
EXAMINATION: US ABDOMEN LIMITED CLINICAL INFORMATION: Rule out cholecystitis. COMPARISON: CT from earlier today TECHNIQUE: Real-time imaging of the right upper quadrant abdominal viscera. FINDINGS: PANCREAS: The visualized proximal portion of the pancreas is unremarkable. The distal portion is obscured secondary to overlying bowel gas. LIVER: The liver is normal in size. The liver contour is normal. Parenchymal echogenicity is normal. Right hepatic lobe cyst is identified measuring up to 2.0 cm. There is no intrahepatic biliary duct dilatation seen. GALLBLADDER: Cholelithiasis is noted with multiple gallstones visualized. Gallbladder wall thickness is at the upper limits of normal. No pericholecystic fluid. Right upper quadrant tenderness during the exam was reported. COMMON BILE DUCT: Normal in caliber measuring 0.5 cm in diameter. RIGHT KIDNEY: No hydronephrosis. No renal calculi or focal parenchymal lesions. The kidney measures 11.1 cm in maximum dimension. FREE FLUID: None. US/US abdomen limited IMPRESSION: Cholelithiasis. Though no gallbladder wall thickening is identified, right upper quadrant tenderness was reported during the exam. If there is clinical suspicion for acute cholecystitis, nuclear medicine hepatobiliary scan may be helpful.
[2020-11-17 03:36] VITALS: BP 196/107; PULSE 73; RESP 18; TEMP 36.6; O2SAT 99; BMI 39.5
--- NOTE | 2020-11-17 03:44 | ECG_ITS ---
Test Reason : ABD PAIN Blood Pressure : / mmHG Vent. Rate : 064 BPM Atrial Rate : 064 BPM P-R Int : 184 ms QRS Dur : 124 ms QT Int : 460 ms P-R-T Axes : 049 -14 122 degrees QTc Int : 474 ms Sinus rhythm with occasional Premature ventricular complexes Septal infarct (cited on or before 17-OCT-2020) T wave abnormality, consider lateral ischemia Abnormal ECG When compared with ECG of 17-OCT-2020 23:14, Premature ventricular complexes are now Present T wave inversion more evident in Lateral leads Referred By: Shaina Howell Electronically Signed By:KAILYN MUHAMMAD MD
--- NOTE | 2020-11-17 03:46 | ED.ABDPAIN ---
HPI - Abdominal Pain General Chief Complaint: Abdominal Pain Stated Complaint: abd pain, SoB, nausea Time Seen by Provider: 11/17/20 03:32 Source: patient Mode of arrival: ambulatory Limitations: no limitations History of Present Illness HPI narrative: Patient comes emergency room complaining of right upper quadrant pain starting yesterday at 19:00. Patient states he has a pressure-like sensation building on the right side of his abdomen. Patient states that if he is standing, his abdomen feels okay, but if he sits down, he feels very bloated, puts pressure on his lungs and becomes short of breath. Patient states that what he is feeling today is different to his previous CHF exacerbations. Patient denies fever or chills Related Data Home Medications Medication Instructions Recorded Confirmed spironolactone 25 mg PO BEDTIME 03/20/20 11/03/20 carvedilol 1 tab PO BID 10/05/20 11/03/20 famotidine 20 mg PO DAILY PRN 10/18/20 11/03/20 Previous Rx's Medication Instructions Recorded furosemide 40 mg PO DAILY 14 Days #28 tab 10/19/20 lisinopril 5 mg tablet 5 mg PO DAILY #30 tab 11/03/20 tramadol 50 mg PO TID PRN #14 tab 11/17/20 Allergies Allergy/AdvReac Type Severity Reaction Status Date / Time No Known Allergies Allergy Verified 11/02/20 14:48 [No Known Allergies*] Review of Systems Review of Systems Constitutional : No Weight loss, No Fever, No Chills, No Night Sweats, No Fatigue, No Malaise ENT/Mouth : No Hearing loss, No Ear Pain, No Nasal Congestion, No Sinus Pain, No Hoarseness, No sore throat, No Rhinorrhea, No Swallowing Difficulty Eyes: No Eye Pain, No Swelling, No Redness, No Foreign Body, No Discharge, No Vision Changes Cardiovascular : No Chest Pain, No SOB, No Dyspnea on Exertion, No Orthopnea, No Edema, No Palpitations Respiratory : No Cough, No Sputum, No Wheezing, No Smoke Exposure, No Dyspnea Gastrointestinal : No Nausea, No Vomiting, No Diarrhea, No Constipation, complaining of right abdominal pressure, distension, No Hematochezia, No Melena Genitourinary : no irregular bleeding, No Dysuria, No Urinary Frequency, No Hematuria, No Urinary Incontinence, No Urgency, No Flank Pain, No Urinary Flow Changes, No Hesitancy Musculoskeletal : No joint pain, No Myalgias, No Joint Swelling Skin : No Skin Lesions, No rash Neuro : No Weakness, No Numbness, No Paresthesias, No Loss of Consciousness, No Dizziness, No Headache Psych : No Anxiety/Panic, No Depression, No SI/HI/AH/VH, No Social Issues, Heme/Lymph: No Bruising, No Bleeding,No Lymphadenopathy Endocrine : No Polyuria, No Polydipsia, No Temperature Intolerance Physical Exam Vital Signs: Vital Signs: Last Vital Signs Temp 97.8 F 11/17/20 03:36 Pulse 73 11/17/20 03:36 Resp 18 11/17/20 03:36 BP 196/107 H 11/17/20 03:36 Pulse Ox 99 11/17/20 03:36 Body Mass Index 39.5 Appearance: Alert. Oriented X3. No acute distress. Eyes: Pupils equal, round and reactive to light. ENT: Pharynx normal. Neck: Normal inspection. Neck supple. No lymph nodes noted. No crepitus CVS: Normal heart rate and rhythm. Pulses normal. Normal S1 and S2 Respiratory: No respiratory distress. Breath sounds normal. No Wheezing. No rales Abdomen: Soft, mildly distended, mild to moderate right upper quadrant pain, no guarding, rebound, negative Marie sign, No rigidity. Skin: Skin warm and dry. Normal skin color. Normal skin turgor. Extremities: +2 pitting edema bilaterally, No Lacerations. No Rash Neuro: Oriented X 3. No motor deficit. No sensory deficit. Moving all extermities. No slurred speech. Course Course Course Narrative: Patient was able to walk to the ultrasound office with no shortness of breath. I discussed with the patient that he does have cholelithiasis, patient states that he does not have significant pain, no elevated LFTs, unlikely to be acute cholecystitis. However he needs to follow up with surgery. Patient states that the abdominal discomfort is not significant, states that he feels well to go home Patient states usually 20 mg of Lasix daily. Patient states that he was instructed by Dr. Bobo to take double that tablets for 3 days p.r.n. shortness of breath, increased lower extremity edema. Patient states he took his 1st double dose yesterday, he will take another 1 today and tomorrow. Patient walked around the emergency room with an oxygen probe on, patient's oxygen saturation remained at 98% on room air, but had not suffer of breath. MDM - Abdominal Pain Lab Data Result diagrams: 11/17/20 04:26 11/17/20 04:26 Labs: Lab Results 11/17/20 11/17/20 11/17/20 Range/Units 04:26 04:26 04:26 WBC 6.5 (4.8-10.8) X10*3/uL RBC 4.25 L (4.60-5.80) X10*6/uL Hgb 12.9 L (14.0-18.0) g/dl Hct 39.0 L (42-52) % MCV 91.8 (80-98) fL MCH 30.4 (27.0-33.0) pg MCHC 33.1 (31.0-36.0) g/dl RDW 13.2 (11.0-16.0) % Plt Count 298 (160-400) X10*3/uL MPV 10.3 (9.4-12.4) fL Immature Gran % (Auto) 0.2 (0.0-0.4) % Neut % (Auto) 55.6 (45-73) % Lymph % (Auto) 30.4 (20-40) % [place] % (Auto) 11.0 (2-11) % Eos % (Auto) 2.5 (0-4) % Baso % (Auto) 0.3 (0-2) % Lymph # (Auto) 2.0 (1.2-4.9) X10*3/uL [place] # (Auto) 0.7 (0.1-1.2) X10*3/uL Eos # (Auto) 0.2 (0.0-0.4) X10*3/uL Baso # (Auto) 0.0 (0.0-0.2) X10*3/uL Abs Immat Gran (auto) 0.01 (0.00-0.03) X10*3/uL Absolute Neuts (auto) 3.6 (2.0-8.3) X10*3/uL Absolute Nucleated RBC 0.000 (0.0-0.012) X10*3/uL Nucleated RBC % (auto) 0.0 (0.0-0.2) /100WBC PT 12.7 (9.9-13.0) SEC INR 1.1 (0.9-1.1) Sodium 141 (135-145) mmol/L Potassium 4.1 (3.3-5.1) mmol/L Chloride 109 H (96-108) mmol/L Carbon Dioxide 27 (22-29) mmol/L Anion Gap 9 L (12-20) BUN 23 H (9-16) mg/dL Creatinine 1.64 H (0.5-1.4) mg/dL Estim Creat Clear Calc 54.6 Estimated GFR 43 Random Glucose 112 (60-115) mg/dL Calcium 8.9 (8.4-10.2) mg/dL Total Bilirubin 0.9 (0.0-1.0) mg/dL Direct Bilirubin 0.3 (0.0-0.5) mg/dL AST 19 (5-37) U/L ALT 20 (0-40) U/L Alkaline Phosphatase 92 (39-117) U/L B-Natriuretic Peptide (<100) pg/mL Total Protein 6.6 (6.5-8.0) g/dL Albumin 4.0 (3.5-5.0) g/dL Lipase 25 (8-78) U/L // Range/Units 04:26 WBC (4.8-10.8) X10*3/uL RBC (4.60-5.80) X10*6/uL Hgb (14.0-18.0) g/dl Hct (42-52) % MCV (80-98) fL MCH (27.0-33.0) pg MCHC (31.0-36.0) g/dl RDW (11.0-16.0) % Plt Count (160-400) X10*3/uL MPV (9.4-12.4) fL Immature Gran % (Auto) (0.0-0.4) % Neut % (Auto) (45-73) % Lymph % (Auto) (20-40) % [place] % (Auto) (2-11) % Eos % (Auto) (0-4) % Baso % (Auto) (0-2) % Lymph # (Auto) (1.2-4.9) X10*3/uL [place] # (Auto) (0.1-1.2) X10*3/uL Eos # (Auto) (0.0-0.4) X10*3/uL Baso # (Auto) (0.0-0.2) X10*3/uL Abs Immat Gran (auto) (0.00-0.03) X10*3/uL Absolute Neuts (auto) (2.0-8.3) X10*3/uL Absolute Nucleated RBC (0.0-0.012) X10*3/uL Nucleated RBC % (auto) (0.0-0.2) /100WBC PT (9.9-13.0) SEC INR (0.9-1.1) Sodium (135-145) mmol/L Potassium (3.3-5.1) mmol/L Chloride (96-108) mmol/L Carbon Dioxide (22-29) mmol/L Anion Gap (12-20) BUN (9-16) mg/dL Creatinine (0.5-1.4) mg/dL Estim Creat Clear Calc Estimated GFR Random Glucose (60-115) mg/dL Calcium (8.4-10.2) mg/dL Total Bilirubin (0.0-1.0) mg/dL Direct Bilirubin (0.0-0.5) mg/dL AST (5-37) U/L ALT (0-40) U/L Alkaline Phosphatase (39-117) U/L B-Natriuretic Peptide 780 H (<100) pg/mL Total Protein (6.5-8.0) g/dL Albumin (3.5-5.0) g/dL Lipase (8-78) U/L Imaging Data CT scan - abdomen: Radiologist's impression: FINDINGS: LUNG BASES: The visualized lung bases demonstrate small pleural effusions. Mild interstitial edema noted with interlobular septal thickening. LIVER, GALLBLADDER, AND BILIARY TREE: The liver is normal in size, shape, and attenuation. A few small hypodense lesions are redemonstrated in the right hepatic lobe, favoring cysts. No biliary ductal dilatation is present. Multiple gallstones are visualized. No significant or pericholecystic inflammation. PANCREAS: Unremarkable. SPLEEN: Unremarkable. ADRENAL GLANDS: Unremarkable. KIDNEYS AND URETERS: The kidneys are normal in size, shape, and attenuation. Small hypodensity off the lateral left kidney favors a cyst. Cortical thinning is noted in the lower left kidney. No hydronephrosis, hydroureter, or calculi seen. BLADDER: Unremarkable. GASTROINTESTINAL TRACT: Mild colonic diverticulosis is noted. The small and large bowel are otherwise unremarkable without evidence of obstruction or pericolonic inflammatory change. The appendix appears collapsed. No free fluid or free air is seen. ABDOMINAL WALL: No significant hernia is appreciated. LYMPH NODES: Normal. VASCULAR: Unremarkable. PELVIC VISCERA: Unremarkable. OSSEOUS STRUCTURES: Degenerative changes are noted in the spine. CT/CT abdomen pelvis wo con IMPRESSION: 1. Cholelithiasis. If there is clinical concern for cholecystitis, this would be best further assessed with ultrasound. 2. Mild interstitial edema at the lung bases and small pleural effusions. Chest x-ray: Radiologist's impression: FINDINGS: Left-sided AICD lead tip overlies the right ventricle. Lung volumes are symmetric. No focal consolidation is seen. There is mild interstitial prominence diffusely. No evidence of pneumothorax or significant pleural effusion. Cardiac silhouette remains mildly enlarged. No acute osseous findings are seen. XR/XR chest 1V IMPRESSION: Mild diffuse interstitial prominence suggesting interstitial edema. US - abdomen: Radiologist's impression: FINDINGS: PANCREAS: The visualized proximal portion of the pancreas is unremarkable. The distal portion is obscured secondary to overlying bowel gas. LIVER: The liver is normal in size. The liver contour is normal. Parenchymal echogenicity is normal. Right hepatic lobe cyst is identified measuring up to 2.0 cm. There is no intrahepatic biliary duct dilatation seen. GALLBLADDER: Cholelithiasis is noted with multiple gallstones visualized. Gallbladder wall thickness is at the upper limits of normal. No pericholecystic fluid. Right upper quadrant tenderness during the exam was reported. COMMON BILE DUCT: Normal in caliber measuring 0.5 cm in diameter. RIGHT KIDNEY: No hydronephrosis. No renal calculi or focal parenchymal lesions. The kidney measures 11.1 cm in maximum dimension. FREE FLUID: None. US/US abdomen limited IMPRESSION: Cholelithiasis. Though no gallbladder wall thickening is identified, right upper quadrant tenderness was reported during the exam. If there is clinical suspicion for acute cholecystitis, nuclear medicine hepatobiliary scan may be helpful. ECG Data Attestation: I personally reviewed and interpreted this ECG as follows: (Sinus rhythm, heart rate 64, nonspecific ST changes in the lateral leads, no reciprocal changes, QTC 474, occasional PVCs, no EKG changes when compared to EKG from 10/17/2020) Discharge Plan Discharge Clinical Impression: Chronic dyspnea Abdominal pain Qualifiers: Abdominal location: right upper quadrant Qualified Code(s): R10.11 - Right upper quadrant pain Patient Disposition: Home, Self-Care Instructions: Abdominal Pain (ED) Additional Instructions: Please follow-up with your primary care physician tomorrow. If you have any worsening or new symptoms, please return to the emergency room or call 911 Prescriptions: New tramadol 50 mg tablet 50 mg PO TID PRN (Reason: pain) Qty: 14 RF: 0 No Action lisinopril 5 mg tablet 5 mg PO DAILY Qty: 30 RF: 5 spironolactone 25 mg Tablet 25 mg PO BEDTIME RF: 0 carvedilol 6.25 mg tablet 1 tab PO BID RF: 0 famotidine 20 mg Tablet 20 mg PO DAILY PRN (Reason: Acid Reflux) RF: 0 furosemide 20 mg Tablet 40 mg PO DAILY 14 Days Qty: 28 RF: 0 Referrals: August Cleveland MD [Physician] - 2 days Ovidio Bobo MD [Physician] - 2 days [facility] Past Medical History Medical History Cardiac defibrillator in place CKD (chronic kidney disease), stage II Hypertension NICM (nonischemic cardiomyopathy) NSVT (nonsustained ventricular tachycardia) Renal infarct Family History Family History Other CAD (coronary artery disease) Social History Social History Household Members: Spouse Housing: Apartment Do you presently have visiting nurse or other home services: No Alcohol intake: never Patient Tobacco Use Status: Never used Tobacco Advance Directives: Yes Advance Directives on File: Yes Advance Directives Date on File: 03/20/20 service: Yes Current occupational status: employed
[2020-11-17 04:32] LABS: MANUAL DIFF FLAG NO
[2020-11-17 04:35] LABS: Basophils Percent Auto 0.3 % (0-2); Eosinophils Absolute Auto 0.2 X10*3/uL (0.0-0.4); Eosinophils Percent Auto 2.5 % (0-4); Hemoglobin 12.9 g/dl (14.0-18.0); Imm Gran Abs Auto 0.01 X10*3/uL (0.00-0.03); Imm Gran Pct Auto 0.2 % (0.0-0.4); Lymphocytes Percent Auto 30.4 % (20-40); Mean Corpuscular HGB Conc 33.1 g/dl (31.0-36.0); Mean Corpuscular Hemoglobin 30.4 pg (27.0-33.0); Mean Corpuscular Volume 91.8 fL (80-98); Mean Platelet Volume 10.3 fL (9.4-12.4); Monocytes Absolute Auto 0.7 X10*3/uL (0.1-1.2); Neutrophils Absolute Auto 3.6 X10*3/uL (2.0-8.3); Neutrophils Percent Auto 55.6 % (45-73); Platelet Count 298 X10*3/uL (160-400); Red Blood Count 4.25 X10*6/uL (4.60-5.80); Red Cell Distribution Width 13.2 % (11.0-16.0); White Blood Count 6.5 X10*3/uL (4.8-10.8)
[2020-11-17 04:43] LABS: INTERNATIONAL NORM RATIO 1.1 (0.9-1.1); Prothrombin Time 12.7 SEC (9.9-13.0)
[2020-11-17 05:20] LABS: Alanine Aminotransferase 20 U/L (0-40); Alkaline Phosphatase 92 U/L (39-117); Anion Gap 9 (12-20); Aspartate Amino Transferase 19 U/L (5-37); Bilirubin Direct 0.3 mg/dL (0.0-0.5); Bilirubin Total 0.9 mg/dL (0.0-1.0); Blood Urea Nitrogen 23 mg/dL (9-16); Calcium 8.9 mg/dL (8.4-10.2); Carbon Dioxide 27 mmol/L (22-29); Chloride 109 mmol/L (96-108); Creatinine Clr Calc Pharmacy 54.6; Estimated Glomerular Filt Rate 43; Glucose Random 112 mg/dL (60-115); Lipase 25 U/L (8-78); Potassium 4.1 mmol/L (3.3-5.1); Sodium 141 mmol/L (135-145); Total Protein 6.6 g/dL (6.5-8.0)
[2020-11-17 05:21] LABS: B Type Natriuretic Peptide 780 pg/mL (<100)
== END 2020-11-17 06:51 | disposition home or self-care (01) ==
PROVIDERS: Emergency Provider Emergency Medicine
DX: R06.00 Dyspnea, unspecified (principal); R10.11 Right upper quadrant pain; I12.9 Hypertensive chronic kidney disease with stage 1 through stage 4 chronic kidney disease, or unspecified chronic kidney disease; N18.9 Chronic kidney disease, unspecified; Z79.899 Other long term (current) drug therapy
CPT/HCPCS: 36415; 71045; 74176; 76705; 80048; 80076; 83690; 83880; 85025; 85610; 93005; 99283

== ENCOUNTER → 2020-11-29 13:02 | Outpatient (BNVA) | payer OTHER, SELFPAY | PROVIDERS: Visit Provider Internal Medicine Cardiovascular Disease | DX: I11.0 Hypertensive heart disease with heart failure (principal); I50.9 Heart failure, unspecified | CPT/HCPCS: 99212 ==

== ENCOUNTER 2020-12-15 23:24 | Emergency (ER) | payer OTHER, SELFPAY ==
--- NOTE | 2020-12-15 | ECG_ITS ---
Test Reason : SOB Blood Pressure : / mmHG Vent. Rate : 077 BPM Atrial Rate : 077 BPM P-R Int : 184 ms QRS Dur : 126 ms QT Int : 430 ms P-R-T Axes : 057 -16 115 degrees QTc Int : 486 ms Sinus rhythm with frequent Premature ventricular complexes Non-specific intra-ventricular conduction block T wave abnormality, consider lateral ischemia Abnormal ECG When compared with ECG of 17-NOV-2020 04:00, No significant change was found Referred By: Generic ED Physician Electronically Signed By:GENNY FERRIS
--- NOTE | ~2020-12-15 | XR_ITS ---
EXAMINATION: XR CHEST CLINICAL INFORMATION: Shortness of breath. Chest wall pain. COMPARISON: Chest x-ray November 17, 2020 TECHNIQUE: Frontal portable view of the chest was obtained. 11:53 PM FINDINGS: Heart size is enlarged. Pacemaker lead unchanged position in right ventricle. Persistent mild vascular prominence unchanged since chest x-ray November 17, 2020. No focal consolidation. No pleural effusion or pneumothorax. Multilevel degenerative spondylosis of the spine. XR/XR chest 1V IMPRESSION: Cardiomegaly. Pacemaker present. Mild chronic pulmonary vascular congestion.
[2020-12-15 23:31] VITALS: BP 193/102; PULSE 72; RESP 20; TEMP 36.4; O2SAT 99; BMI 39.2
[2020-12-16 00:28] LABS: MANUAL DIFF FLAG NO
[2020-12-16 00:29] LABS: Basophils Absolute Auto 0.1 X10*3/uL (0.0-0.2); Eosinophils Absolute Auto 0.1 X10*3/uL (0.0-0.4); Eosinophils Percent Auto 1.9 % (0-4); Hematocrit 38.6 % (42-52); Imm Gran Abs Auto 0.02 X10*3/uL (0.00-0.03); Imm Gran Pct Auto 0.3 % (0.0-0.4); Lymphocytes Absolute Auto 2.1 X10*3/uL (1.2-4.9); Lymphocytes Percent Auto 33.1 % (20-40); Mean Corpuscular HGB Conc 33.7 g/dl (31.0-36.0); Mean Corpuscular Hemoglobin 30.4 pg (27.0-33.0); Mean Corpuscular Volume 90.2 fL (80-98); Mean Platelet Volume 10.8 fL (9.4-12.4); Monocytes Absolute Auto 0.7 X10*3/uL (0.1-1.2); Monocytes Percent Auto 10.9 % (2-11); Neutrophils Absolute Auto 3.3 X10*3/uL (2.0-8.3); Neutrophils Percent Auto 52.8 % (45-73); Platelet Count 287 X10*3/uL (160-400); Red Blood Count 4.28 X10*6/uL (4.60-5.80); Red Cell Distribution Width 13.2 % (11.0-16.0); White Blood Count 6.2 X10*3/uL (4.8-10.8)
[2020-12-16 00:56] LABS: Troponin-I High Sensitivity 48.9 ng/L (<3.5-35.0)
[2020-12-16 01:00] LABS: Alanine Aminotransferase 34 U/L (0-40); Albumin Level 3.9 g/dL (3.5-5.0); Alkaline Phosphatase 83 U/L (39-117); Anion Gap 11 (12-20); Aspartate Amino Transferase 29 U/L (5-37); Bilirubin Total 0.6 mg/dL (0.0-1.0); Blood Urea Nitrogen 27 mg/dL (9-16); Calcium 8.8 mg/dL (8.4-10.2); Carbon Dioxide 22 mmol/L (22-29); Chloride 114 mmol/L (96-108); Estimated Glomerular Filt Rate 40; Glucose Random 96 mg/dL (60-115); Potassium 4.1 mmol/L (3.3-5.1); Sodium 143 mmol/L (135-145); Total Protein 6.3 g/dL (6.5-8.0)
[2020-12-16 02:09] VITALS: BP 175/105; PULSE 73; RESP 16; O2SAT 100
--- NOTE | 2020-12-16 02:37 | ED.GENADULT ---
HPI - General Adult General Chief complaint: General Medical Stated complaint: Sob/High blood pressure Time Seen by Provider: 12/16/20 02:37 Source: patient Mode of arrival: EMS Limitations: no limitations History of Present Illness HPI narrative: Patient feels short of breath and his blood pressure is high. patient states that his problems started yesterday. No chest pain, no swelling. patient feels upper abdominal pain. Patient is unable to lie down because he feels short of breath. Onset (ago): day(s) Location: abdomen Radiation: non-radiation Severity: mild Pain Consistency: constant Relieving factors: none Related Data Home Medications Medication Instructions Recorded Confirmed spironolactone 25 mg tablet 25 mg PO BEDTIME 03/20/20 11/29/20 famotidine 20 mg tablet 20 mg PO DAILY PRN 10/18/20 11/29/20 lisinopril 40 mg tablet 40 mg PO DAILY 11/29/20 11/29/20 Previous Rx's Medication Instructions Recorded tramadol 50 mg tablet 50 mg PO TID PRN #14 tab 11/17/20 carvedilol 12.5 mg tablet 12.5 mg PO BID #90 tab 11/29/20 furosemide 40 mg tablet 40 mg PO DAILY #90 tab 11/29/20 Allergies Allergy/AdvReac Type Severity Reaction Status Date / Time No Known Allergies Allergy Verified 11/29/20 13:08 [No Known Allergies*] Review of Systems Constitutional: Constitutional: Reports no additional constitutional complaints Eyes: Eyes: Reports no additional eye complaints ENT: Denies dizziness Cardiovascular: Cardiovascular: Reports no additional cardiovascular complaints Respiratory: Respiratory: Reports as per HPI Gastrointestinal: Gastrointestinal: Reports no additional gastrointestinal complaints Musculoskeletal: Musculoskeletal: Reports no additional musculoskeletal complaints Integumentary/Breasts: Skin/Breast: Denies rash Neurologic: Reports system reviewed and no additional complaints, except as documented, Denies dizziness and Denies Sensory deficit (Neuro) Psychiatric: Psychiatric: Denies anxiety PMFSH Past Medical History Medical History Cardiac defibrillator in place CKD (chronic kidney disease), stage II Hypertension NICM (nonischemic cardiomyopathy) NSVT (nonsustained ventricular tachycardia) Renal infarct Family History Family History Other CAD (coronary artery disease) Social History Social History Household Members: Spouse Housing: Apartment Do you presently have visiting nurse or other home services: No Alcohol intake: never Patient Tobacco Use Status: Never used Tobacco Advance Directives: Yes Advance Directives on File: Yes Advance Directives Date on File: 03/20/20 service: Yes Current occupational status: employed Physical Exam Vital Signs: Vital Signs: Last Vital Signs Temp 97.6 F 12/15/20 23:31 Pulse 73 12/16/20 02:09 Resp 16 12/16/20 02:09 BP 175/105 H 12/16/20 02:09 Pulse Ox 100 12/16/20 02:09 Body Mass Index 39.2 Const: Nutritional Appearance: obese Orientation/consciousness: oriented to person and patient oriented x3 Limitations: no limitations HENMT: Head: Yes normal to inspection Ears: external ears normal General nose exam: Normal external nose present Mouth: Normal oral and palatal mucosa present and oropharynx normal Throat: Yes posterior oropharynx normal Eyes: General: appearance normal, both eyes and all related structures Neck: Other: supple Neck: Yes normal visual inspection Chest: Chest palpation & inspection: normal inspection of the chest Resp: Other: mild crackles at the bases Cardio: Jugular venous distension: no JVD Rate: regular rate Rhythm: regular rhythm Heart sounds: S1 normal heart sound present and S2 normal heart sound present GI: Inspection: Yes normal to inspection Palpation (GI): Soft to palpation, nontender and No hepatosplenomegaly present Auscultation: normal bowel sounds : General: Yes no CVA tenderness Back/Spine/Pelvis: Back: no CVA tenderness Skin: General skin exam: no rashes or lesions noted Neuro: General: oriented to person and patient oriented x3 Cranial nerves: Yes CN's II-XII intact bilaterally Motor exam (neuro): 5/5 motor strength present throughout Sensory Exam: No Sensory deficit (Neuro) Extrem: Other: 2+ edema bilaterally Psych: Appearance: grossly normal Course Reevaluation(s) Reevaluation #1: patient with mild worsening of his CHF will increase his lasix and have him follow up with his physicians Time: 04:51 Medical Decision Making Lab Data Result diagrams: 12/16/20 00:19 12/16/20 00:19 Labs: Lab Results 12/16/20 12/16/20 12/16/20 Range/Units 00:19 00:19 00:19 WBC 6.2 (4.8-10.8) X10*3/uL RBC 4.28 L (4.60-5.80) X10*6/uL Hgb 13.0 L (14.0-18.0) g/dl Hct 38.6 L (42-52) % MCV 90.2 (80-98) fL MCH 30.4 (27.0-33.0) pg MCHC 33.7 (31.0-36.0) g/dl RDW 13.2 (11.0-16.0) % Plt Count 287 (160-400) X10*3/uL MPV 10.8 (9.4-12.4) fL Immature Gran % (Auto) 0.3 (0.0-0.4) % Neut % (Auto) 52.8 (45-73) % Lymph % (Auto) 33.1 (20-40) % [place] % (Auto) 10.9 (2-11) % Eos % (Auto) 1.9 (0-4) % Baso % (Auto) 1.0 (0-2) % Lymph # (Auto) 2.1 (1.2-4.9) X10*3/uL [place] # (Auto) 0.7 (0.1-1.2) X10*3/uL Eos # (Auto) 0.1 (0.0-0.4) X10*3/uL Baso # (Auto) 0.1 (0.0-0.2) X10*3/uL Abs Immat Gran (auto) 0.02 (0.00-0.03) X10*3/uL Absolute Neuts (auto) 3.3 (2.0-8.3) X10*3/uL Absolute Nucleated RBC 0.000 (0.0-0.012) X10*3/uL Nucleated RBC % (auto) 0.0 (0.0-0.2) /100WBC Sodium 143 (135-145) mmol/L Potassium 4.1 (3.3-5.1) mmol/L Chloride 114 H (96-108) mmol/L Carbon Dioxide 22 (22-29) mmol/L Anion Gap 11 L (12-20) BUN 27 H (9-16) mg/dL Creatinine 1.75 H (0.5-1.4) mg/dL Estim Creat Clear Calc 51.0 Estimated GFR 40 Random Glucose 96 (60-115) mg/dL Calcium 8.8 (8.4-10.2) mg/dL Total Bilirubin 0.6 (0.0-1.0) mg/dL AST 29 D (5-37) U/L ALT 34 (0-40) U/L Alkaline Phosphatase 83 (39-117) U/L Troponin I High Sens 48.9 H* (<3.5-35.0) ng/L B-Natriuretic Peptide (<100) pg/mL Total Protein 6.3 L (6.5-8.0) g/dL Albumin 3.9 (3.5-5.0) g/dL 12/16/20 12/16/20 Range/Units 02:59 02:59 WBC (4.8-10.8) X10*3/uL RBC (4.60-5.80) X10*6/uL Hgb (14.0-18.0) g/dl Hct (42-52) % MCV (80-98) fL MCH (27.0-33.0) pg MCHC (31.0-36.0) g/dl RDW (11.0-16.0) % Plt Count (160-400) X10*3/uL MPV (9.4-12.4) fL Immature Gran % (Auto) (0.0-0.4) % Neut % (Auto) (45-73) % Lymph % (Auto) (20-40) % [place] % (Auto) (2-11) % Eos % (Auto) (0-4) % Baso % (Auto) (0-2) % Lymph # (Auto) (1.2-4.9) X10*3/uL [place] # (Auto) (0.1-1.2) X10*3/uL Eos # (Auto) (0.0-0.4) X10*3/uL Baso # (Auto) (0.0-0.2) X10*3/uL Abs Immat Gran (auto) (0.00-0.03) X10*3/uL Absolute Neuts (auto) (2.0-8.3) X10*3/uL Absolute Nucleated RBC (0.0-0.012) X10*3/uL Nucleated RBC % (auto) (0.0-0.2) /100WBC Sodium (135-145) mmol/L Potassium (3.3-5.1) mmol/L Chloride (96-108) mmol/L Carbon Dioxide (22-29) mmol/L Anion Gap (12-20) BUN (9-16) mg/dL Creatinine (0.5-1.4) mg/dL Estim Creat Clear Calc Estimated GFR Random Glucose (60-115) mg/dL Calcium (8.4-10.2) mg/dL Total Bilirubin (0.0-1.0) mg/dL AST (5-37) U/L ALT (0-40) U/L Alkaline Phosphatase (39-117) U/L Troponin I High Sens 43.7 H* (<3.5-35.0) ng/L B-Natriuretic Peptide 1046 H (<100) pg/mL Total Protein (6.5-8.0) g/dL Albumin (3.5-5.0) g/dL Imaging Data Chest x-ray: Radiologist's impression: IMPRESSION: Cardiomegaly. Pacemaker present. Mild chronic pulmonary vascular congestion. ? Discharge Plan Discharge Clinical Impression: Acute on chronic systolic CHF (congestive heart failure) Patient Disposition: Home, Self-Care Instructions: Heart Failure (ED) Additional Instructions: Increase lasix to 40 mg twice a day Prescriptions: No Action spironolactone 25 mg Tablet 25 mg PO BEDTIME RF: 0 famotidine 20 mg Tablet 20 mg PO DAILY PRN (Reason: Acid Reflux) RF: 0 tramadol 50 mg tablet 50 mg PO TID PRN (Reason: pain) Qty: 14 RF: 0 lisinopril 40 mg tablet 40 mg PO DAILY RF: 0 carvedilol 12.5 mg tablet 12.5 mg PO BID Qty: 90 RF: 3 furosemide 40 mg tablet 40 mg PO DAILY Qty: 90 RF: 3 Referrals: Ovidio Bobo MD [Physician] - 2 days (must see doctor on Friday)
[2020-12-16] MEDS: Furosemide 40 MG/4 ML VIAL IVPUSH (03:10)
[2020-12-16 03:34] LABS: B Type Natriuretic Peptide 1046 pg/mL (<100)
[2020-12-16 03:39] LABS: Troponin-I High Sensitivity 43.7 ng/L (<3.5-35.0)
[2020-12-16] MEDS: Acetaminophen 325 MG TABLET 650 MG PO (04:41)
== END 2020-12-16 05:38 | disposition home or self-care (01) ==
PROVIDERS: Emergency Provider Emergency Medicine
DX: I13.0 Hypertensive heart and chronic kidney disease with heart failure and stage 1 through stage 4 chronic kidney disease, or unspecified chronic kidney disease (principal); N18.2 Chronic kidney disease, stage 2 (mild); I50.23 Acute on chronic systolic (congestive) heart failure; R06.02 Shortness of breath; Z79.899 Other long term (current) drug therapy; Z95.810 Presence of automatic (implantable) cardiac defibrillator
CPT/HCPCS: 36415; 71045; 80053; 83880; 84484; 85025; 93005; 96374; 99284; 99285; J1940

== ENCOUNTER → 2020-12-21 11:07 | Outpatient (BNVA) | payer OTHER, SELFPAY | PROVIDERS: Visit Provider Surgery | DX: K81.1 Chronic cholecystitis (principal) | CPT/HCPCS: 99202 ==

== ENCOUNTER 2020-12-23 02:02 | Inpatient (IN) | payer OTHER, SELFPAY ==
[2020-12-23] VITALS (12 sets, daily range): BP systolic 123–185; BP diastolic 58–117; PULSE 48–84; RESP 16–20; TEMP 36.1–36.9; O2SAT 94–99; BMI 39.2; BMI 39.3
--- NOTE | ~2020-12-23 | US_ITS ---
EXAMINATION: US ABDOMEN LIMITED CLINICAL INFORMATION: Right upper quadrant and epigastric pain. COMPARISON: November 17, 2020 TECHNIQUE: Real-time imaging of the right upper quadrant abdominal viscera. FINDINGS: PANCREAS: Visualized portions unremarkable. Partially obscured by overlying bowel gas. LIVER: Within the right lobe there is a 2.1 cm cyst. The liver is normal in size. The liver contour is normal. Parenchymal echogenicity is normal. There is no intrahepatic biliary duct dilatation seen. GALLBLADDER: Cholelithiasis is present. No tenderness to palpation overlying the gallbladder was elicited. No gallbladder wall thickening is seen. No pericholecystic fluid is noted. COMMON BILE DUCT: Normal in caliber measuring 0.6 cm in diameter. RIGHT KIDNEY: Normal. No hydronephrosis. No renal calculi or focal parenchymal lesions. The kidney measures 10.1 cm in maximum dimension. FREE FLUID: None. US/US abdomen limited IMPRESSION: Cholelithiasis without evidence of acute cholecystitis.
--- NOTE | ~2020-12-23 | XR_ITS ---
EXAMINATION: XR CHEST CLINICAL INFORMATION: Shortness of breath COMPARISON: 12/15/2020 TECHNIQUE: Frontal view of the chest was obtained. FINDINGS: Left-sided AICD lead tip overlies the right ventricle. Lung volumes are symmetric. No focal consolidation is seen. No evidence of pneumothorax, significant pleural effusion, or overt pulmonary edema. Cardiac silhouette remains enlarged. No acute osseous findings are seen. XR/XR chest 1V IMPRESSION: No acute pulmonary findings. Enlarged cardiac silhouette.
[2020-12-23 02:37] LABS: COVID-19 Test Negative (Negative); IDNOW Serial# 9DD0AD1C
[2020-12-23 02:52] LABS: MANUAL DIFF FLAG NO
[2020-12-23 02:54] LABS: Basophils Percent Auto 0.7 % (0-2); Eosinophils Absolute Auto 0.1 X10*3/uL (0.0-0.4); Eosinophils Percent Auto 1.4 % (0-4); Hematocrit 39.4 % (42-52); Hemoglobin 13.1 g/dl (14.0-18.0); Imm Gran Abs Auto 0.01 X10*3/uL (0.00-0.03); Imm Gran Pct Auto 0.2 % (0.0-0.4); Lymphocytes Absolute Auto 1.5 X10*3/uL (1.2-4.9); Lymphocytes Percent Auto 25.8 % (20-40); Mean Corpuscular HGB Conc 33.2 g/dl (31.0-36.0); Mean Corpuscular Hemoglobin 30.3 pg (27.0-33.0); Mean Platelet Volume 10.2 fL (9.4-12.4); Monocytes Absolute Auto 0.6 X10*3/uL (0.1-1.2); Monocytes Percent Auto 9.8 % (2-11); Neutrophils Absolute Auto 3.7 X10*3/uL (2.0-8.3); Neutrophils Percent Auto 62.1 % (45-73); Platelet Count 290 X10*3/uL (160-400); Red Blood Count 4.33 X10*6/uL (4.60-5.80); White Blood Count 5.9 X10*3/uL (4.8-10.8)
[2020-12-23] MEDS: ondansetron HCL 4 MG/2 ML VIAL IVPUSH (03:44)
[2020-12-23 05:34] LABS: Alanine Aminotransferase 33 U/L (0-40); Albumin Level 4.3 g/dL (3.5-5.0); Alkaline Phosphatase 92 U/L (39-117); Anion Gap 15 (12-20); Aspartate Amino Transferase 27 U/L (5-37); Blood Urea Nitrogen 31 mg/dL (9-16); Carbon Dioxide 23 mmol/L (22-29); Chloride 111 mmol/L (96-108); Estimated Glomerular Filt Rate 38; Glucose Random 129 mg/dL (60-115); Lipase 37 U/L (8-78); Potassium 4.3 mmol/L (3.3-5.1); Sodium 145 mmol/L (135-145); Total Protein 6.8 g/dL (6.5-8.0)
--- NOTE | 2020-12-23 05:46 | ED.ABDPAIN ---
HPI - Abdominal Pain General Chief Complaint: Abdominal Pain Stated Complaint: SOB/abd pain Time Seen by Provider: 12/23/20 05:46 Source: patient Mode of arrival: ambulatory History of Present Illness HPI narrative: 60-year-old male presents with chronic, persistent epigastric and right upper quadrant pain with known cholelithiasis and persistent nausea with intermittent episodes of vomiting and planned surgery for cholecystectomy on 01/10. Patient saw Dr. Cleveland approximately 3 days ago without any changes in plan. Patient denies any fever, chills, diarrhea or urinary symptoms. Patient states that his abdominal pain gives him shortness of breath. He denies otherwise any chest pain or palpitations. Related Data Home Medications Medication Instructions Recorded Confirmed spironolactone 25 mg tablet 25 mg PO BEDTIME 03/20/20 11/29/20 famotidine 20 mg tablet 20 mg PO DAILY PRN 10/18/20 11/29/20 lisinopril 40 mg tablet 40 mg PO DAILY 11/29/20 11/29/20 Previous Rx's Medication Instructions Recorded tramadol 50 mg tablet 50 mg PO TID PRN #14 tab 11/17/20 carvedilol 12.5 mg tablet 12.5 mg PO BID #90 tab 11/29/20 furosemide 40 mg tablet 40 mg PO DAILY #90 tab 11/29/20 Allergies Allergy/AdvReac Type Severity Reaction Status Date / Time No Known Allergies Allergy Verified 12/23/20 02:04 [No Known Allergies*] Review of Systems Review of Systems Pertinent positives and negatives as stated in HPI 10 point review of systems is otherwise negative. Physical Exam Vital Signs: Vital Signs: Last Vital Signs Temp 97.6 F 12/23/20 02:04 Pulse 66 12/23/20 05:37 Resp 16 12/23/20 05:37 BP 174/96 H 12/23/20 05:37 Pulse Ox 98 12/23/20 05:37 Body Mass Index 39.2 VITAL SIGNS: Reviewed. GENERAL: Obese, chronically ill, mild distress. HEAD: Normocephalic/atraumatic EYES: PERRLA, EOMI EARS: Ext canals without abnormality OROPHARYNX: no oral lesions noted, posterior pharynx clear NECK: Supple, no adenopathy LUNGS: Normal breath sounds, no rales/rhonchi noted SpO2<98> CARDIOVASCULAR: Regular rate and rhythm without noted murmurs, no JVD but noted bilateral lower extremity pitting edema left greater than right ABDOMEN: Obese, abdominal exam limited by body habitus, Soft, mildly tender across epigastrium and right upper quadrant without rebound, non-distended with bowel sounds. MUSCULOSKELETAL: No tenderness, deformities, or effusions noted on gross inspection. EXTREMITIES: No cyanosis, clubbing or edema. SKIN: Inspection of the skin reveals no rashes NEUROLOGIC: Alert and oriented x 4. Course Course Course Narrative: 60-year-old male with history and clinical presentation consistent with cholelithiasis and likely intermittent biliary colic will evaluate for evidence of pancreatitis or acute infection as well as ruling out possible CHF. On review of all investigations and in conjunction with clinical exam patient has CHF exacerbation without hypoxia. Will obtain abdominal ultrasound, however feel that this is less likely to demonstrate acute cholecystitis and this case was discussed with inpatient hospitalist who accepts admission. MDM - Abdominal Pain Lab Data Result diagrams: 12/23/20 02:47 12/23/20 02:47 Labs: Lab Results 12/23/20 12/23/20 12/23/20 Range/Units 02:14 02:47 02:47 WBC 5.9 (4.8-10.8) X10*3/uL RBC 4.33 L (4.60-5.80) X10*6/uL Hgb 13.1 L (14.0-18.0) g/dl Hct 39.4 L (42-52) % MCV 91.0 (80-98) fL MCH 30.3 (27.0-33.0) pg MCHC 33.2 (31.0-36.0) g/dl RDW 13.0 (11.0-16.0) % Plt Count 290 (160-400) X10*3/uL MPV 10.2 (9.4-12.4) fL Immature Gran % (Auto) 0.2 (0.0-0.4) % Neut % (Auto) 62.1 (45-73) % Lymph % (Auto) 25.8 (20-40) % [place] % (Auto) 9.8 (2-11) % Eos % (Auto) 1.4 (0-4) % Baso % (Auto) 0.7 (0-2) % Lymph # (Auto) 1.5 (1.2-4.9) X10*3/uL [place] # (Auto) 0.6 (0.1-1.2) X10*3/uL Eos # (Auto) 0.1 (0.0-0.4) X10*3/uL Baso # (Auto) 0.0 (0.0-0.2) X10*3/uL Abs Immat Gran (auto) 0.01 (0.00-0.03) X10*3/uL Absolute Neuts (auto) 3.7 (2.0-8.3) X10*3/uL Absolute Nucleated RBC 0.000 (0.0-0.012) X10*3/uL Nucleated RBC % (auto) 0.0 (0.0-0.2) /100WBC Sodium 145 (135-145) mmol/L Potassium 4.3 (3.3-5.1) mmol/L Chloride 111 H (96-108) mmol/L Carbon Dioxide 23 (22-29) mmol/L Anion Gap 15 (12-20) BUN 31 H (9-16) mg/dL Creatinine 1.82 H (0.5-1.4) mg/dL Estim Creat Clear Calc 49.0 Estimated GFR 38 Random Glucose 129 H (60-115) mg/dL Calcium 9.0 (8.4-10.2) mg/dL Total Bilirubin 0.8 (0.0-1.0) mg/dL AST 27 (5-37) U/L ALT 33 (0-40) U/L Alkaline Phosphatase 92 (39-117) U/L B-Natriuretic Peptide (<100) pg/mL Total Protein 6.8 (6.5-8.0) g/dL Albumin 4.3 (3.5-5.0) g/dL Lipase 37 (8-78) U/L COVID-19 ([facility]) Negative (Negative) COVID-19 Clin Com See Note 12/23/20 Range/Units 02:47 WBC (4.8-10.8) X10*3/uL RBC (4.60-5.80) X10*6/uL Hgb (14.0-18.0) g/dl Hct (42-52) % MCV (80-98) fL MCH (27.0-33.0) pg MCHC (31.0-36.0) g/dl RDW (11.0-16.0) % Plt Count (160-400) X10*3/uL MPV (9.4-12.4) fL Immature Gran % (Auto) (0.0-0.4) % Neut % (Auto) (45-73) % Lymph % (Auto) (20-40) % [place] % (Auto) (2-11) % Eos % (Auto) (0-4) % Baso % (Auto) (0-2) % Lymph # (Auto) (1.2-4.9) X10*3/uL [place] # (Auto) (0.1-1.2) X10*3/uL Eos # (Auto) (0.0-0.4) X10*3/uL Baso # (Auto) (0.0-0.2) X10*3/uL Abs Immat Gran (auto) (0.00-0.03) X10*3/uL Absolute Neuts (auto) (2.0-8.3) X10*3/uL Absolute Nucleated RBC (0.0-0.012) X10*3/uL Nucleated RBC % (auto) (0.0-0.2) /100WBC Sodium (135-145) mmol/L Potassium (3.3-5.1) mmol/L Chloride (96-108) mmol/L Carbon Dioxide (22-29) mmol/L Anion Gap (12-20) BUN (9-16) mg/dL Creatinine (0.5-1.4) mg/dL Estim Creat Clear Calc Estimated GFR Random Glucose (60-115) mg/dL Calcium (8.4-10.2) mg/dL Total Bilirubin (0.0-1.0) mg/dL AST (5-37) U/L ALT (0-40) U/L Alkaline Phosphatase (39-117) U/L B-Natriuretic Peptide 1004 H (<100) pg/mL Total Protein (6.5-8.0) g/dL Albumin (3.5-5.0) g/dL Lipase (8-78) U/L COVID-19 ([facility]) (Negative) COVID-19 Clin Com Discharge Plan Discharge Clinical Impression: CHF exacerbation, Abdominal pain, right upper quadrant Patient Disposition: Admitted As Inpatient Prescriptions: No Action spironolactone 25 mg Tablet 25 mg PO BEDTIME RF: 0 famotidine 20 mg Tablet 20 mg PO DAILY PRN (Reason: Acid Reflux) RF: 0 tramadol 50 mg tablet 50 mg PO TID PRN (Reason: pain) Qty: 14 RF: 0 lisinopril 40 mg tablet 40 mg PO DAILY RF: 0 carvedilol 12.5 mg tablet 12.5 mg PO BID Qty: 90 RF: 3 furosemide 40 mg tablet 40 mg PO DAILY Qty: 90 RF: 3 PMFSH Past Medical History Source: nursing notes reviewed Medical History Cardiac defibrillator in place CKD (chronic kidney disease), stage II Hypertension NICM (nonischemic cardiomyopathy) NSVT (nonsustained ventricular tachycardia) Renal infarct Family History Family History Other CAD (coronary artery disease) Social History Social History Household Members: Spouse Housing: Apartment Do you presently have visiting nurse or other home services: No Alcohol intake: never Patient Tobacco Use Status: Never used Tobacco Advance Directives: Yes Advance Directives on File: Yes Advance Directives Date on File: 03/20/20 service: Yes Current occupational status: employed
[2020-12-23 05:49] LABS: Bilirubin Total 0.8 mg/dL (0.0-1.0)
[2020-12-23 06:25] LABS: B Type Natriuretic Peptide 1004 pg/mL (<100)
[2020-12-23] MEDS: Furosemide 100 MG/10 ML VIAL 60 MG IVPUSH (07:26)
--- NOTE | 2020-12-23 08:05 | ECG_ITS ---
Test Reason : SOB Blood Pressure : / mmHG Vent. Rate : 065 BPM Atrial Rate : 065 BPM P-R Int : 184 ms QRS Dur : 126 ms QT Int : 462 ms P-R-T Axes : 065 -14 104 degrees QTc Int : 480 ms Sinus rhythm with occasional Premature ventricular complexes and Premature atrial complexes Non-specific intra-ventricular conduction block T wave abnormality, consider lateral ischemia Abnormal ECG When compared with ECG of 15-DEC-2020 23:41, Premature atrial complexes are now Present Referred By: Sandra Harris Electronically Signed By:GENNY FERRIS
--- NOTE | 2020-12-23 08:21 | PM.IMHP ---
History of Present Illness Date of Service: 12/23/20 omitous. He also complaint of some SOB and has increase leg edema, PND and othopnea, his BNP is 1000 which is essentially unchaged from 6 days earlier. CXR shows no acute changes, however. He's given IV Lasix 60 mg in ED. His renal function is at baseline. Review of Systems Review of Systems: Gen: no fever Resp + sob, no cough CV: no chest, no COREA, no leg edema GI: + n/v, +abd pain Neuro: No confusion Yes all other systems are reviewed and are negative [facility] Medical History (Updated 12/23/20 @ 09:06 by Del Pagan MD) Cardiac defibrillator in place Cholelithiasis CKD (chronic kidney disease), stage II Embolism of kidney Hypertension NICM (nonischemic cardiomyopathy) NSVT (nonsustained ventricular tachycardia) Renal infarct Family History Other CAD (coronary artery disease) Social History Household Members: Spouse Housing: Apartment Do you presently have visiting nurse or other home services: No Alcohol intake: never Patient Tobacco Use Status: Never used Tobacco Advance Directives: Yes Advance Directives on File: Yes Advance Directives Date on File: 03/20/20 service: Yes Current occupational status: employed Meds Allergies Allergy/AdvReac Type Severity Reaction Status Date / Time No Known Allergies Allergy Verified 12/23/20 02:04 [No Known Allergies*] Home Medications Medication Instructions Recorded Confirmed Last Taken Type lisinopril 40 mg tablet 40 mg PO DAILY 11/29/20 12/23/20 12/22/20 History Physical Exam Vital Signs and Narrative: Vital Signs: Last Vital Signs Temp 97.6 F 12/23/20 02:04 Pulse 69 12/23/20 07:26 Resp 18 12/23/20 07:26 BP 171/103 H 12/23/20 07:26 Pulse Ox 97 12/23/20 07:26 Body Mass Index 39.2 General: ?Alert, no acute distress. ? Head: ?Normocephalic, atraumatic. ? Neck: ?Supple, trachea midline. ? Eye: ?Normal conjunctiva.? Ears, nose, mouth and throat: ?Oral mucosa moist.? Cardiovascular: ?Regular rate and rhythm, No murmur, Normal peripheral perfusion, 2+ edema in legs Respiratory: ?Lungs are clear to auscultation, respirations are non-labored. ?No rales Gastrointestinal: ?Soft, + bowel sounds, some ruq tenderness ? Neurological: ?Alert and oriented to person, place, time, and situation, no focal deficit? Skin: ?Warm, dry, intact, no rash Psychiatric: ?Cooperative.? Results Labs CBC and Chem 7: 12/23/20 02:47 12/23/20 02:47 Labs: Laboratory Results - last 24 hr 12/23/20 12/23/20 12/23/20 02:14 02:47 02:47 MCV 91.0 MCH 30.3 MCHC 33.2 RDW 13.0 Plt Count 290 MPV 10.2 Immature Gran % (Auto) 0.2 Neut % (Auto) 62.1 Lymph % (Auto) 25.8 [place] % (Auto) 9.8 Eos % (Auto) 1.4 Baso % (Auto) 0.7 Lymph # (Auto) 1.5 [place] # (Auto) 0.6 Eos # (Auto) 0.1 Baso # (Auto) 0.0 Abs Immat Gran (auto) 0.01 Absolute Neuts (auto) 3.7 Absolute Nucleated RBC 0.000 Nucleated RBC % (auto) 0.0 Anion Gap 15 Estim Creat Clear Calc 49.0 Estimated GFR 38 Random Glucose 129 H Calcium 9.0 Total Bilirubin 0.8 AST 27 ALT 33 Alkaline Phosphatase 92 B-Natriuretic Peptide Total Protein 6.8 Albumin 4.3 Lipase 37 COVID-19 ([facility]) Negative COVID-19 Clin Com See Note 12/23/20 02:47 MCV MCH MCHC RDW Plt Count MPV Immature Gran % (Auto) Neut % (Auto) Lymph % (Auto) [place] % (Auto) Eos % (Auto) Baso % (Auto) Lymph # (Auto) [place] # (Auto) Eos # (Auto) Baso # (Auto) Abs Immat Gran (auto) Absolute Neuts (auto) Absolute Nucleated RBC Nucleated RBC % (auto) Anion Gap Estim Creat Clear Calc Estimated GFR Random Glucose Calcium Total Bilirubin AST ALT Alkaline Phosphatase B-Natriuretic Peptide 1004 H Total Protein Albumin Lipase COVID-19 ([facility]) COVID-19 Clin Com Imaging Radiologist's Impressions: Impressions Chest X-Ray 12/23/20 05:49 IMPRESSION: No acute pulmonary findings. Enlarged cardiac silhouette. Assessment and Plan (1) Acute on chronic systolic CHF (congestive heart failure): Status: Acute (2) NICM (nonischemic cardiomyopathy): Status: Acute (3) Uncontrolled hypertension: Status: Acute (4) Cholelithiasis: Status: Acute 60-year-old male with a past medical history of hypertension, hyperlipidemia, CHF with EF of 20-25%, status post AICD, history of renal infarct, chronic kidney, history of known known cholelithiasis associated with intermittent RUQ pain/epigastric pain, nausea and at times vomitting, his presenting with Ruq/epigastric pain consistent with biliary colic and has some element of heart failure exacerbation. 1/mild Acute on chronic heart failure with reduced EF--He has received IV Lasix and will continue Oral Lasix and ask cardiology to asssess him, especially given that he might need surgyer (CCY) soon. Continue Coreg and Lisinpril and Monitor electrolytes 2/ Biliary colic/ Cholethiasis--there is no evidence of choledocholithiasis--Consult surgery to see if CCy maybe done earlier than 01/10 3/ HTN--continue Lisinopril and Coreg and further adjustment if bP remains high 4/ Heparin for DVT prophylaxis Full Code Quality Stroke Does the patient have a stroke diagnosis?: No VTE Prior VTE?: No VTE Risk Level:: Medical - moderate - high VTE Device Contraindication: N/A - Device Ordered VTE Drug Contraindication: N/A - Med Ordered
[2020-12-23] MEDS: lisinopriL 40 MG TABLET PO (08:48)
[2020-12-23] MEDS: carvediloL 12.5 MG TABLET PO (08:49)
--- NOTE | 2020-12-23 10:45 | P.CONGS_ITS ---
History of Present Illness Consult details Consult date: 12/23/20 Narrative: 60-year-old male with CHF, referred because of biliary colic. He actually was admitted early this morning by the hospitalist because of worsening shortness of breath. He describes that for the past several weeks, he feels that his external dyspnea has been getting worse along with paroxysmal nocturnal dyspnea and orthopnea. He says he has to sleep with his head up on about 2 pillows now because of his orthopnea. He does have a history of gallstones and describes periodic right upper quadrant pain. He actually was seen by Dr. Cleveland earlier this week because of what appears to be symptomatic gallstones and was scheduled to have cholecystectomy next month. The surgical service was therefore consulted because of this problem with biliary colic. He currently denies abdominal pain at this time. He does have a history of cardiomyopathy, chronic kidney disease, and has a defibrillator in place Review of Systems Constitutional: Constitutional: Denies chills and Denies fever(s) Cardiovascular: Cardiovascular: Denies chest pain, Denies dyspnea, Reports dyspnea on exertion and Reports orthopnea Respiratory: Respiratory: Denies cough, Denies dyspnea and Reports dyspnea on exertion Gastrointestinal: Gastrointestinal: Denies hematochezia and Denies change in bowel habits Genitourinary: Genitourinary: Denies hematuria and Denies difficulty urinating Musculoskeletal: Musculoskeletal: Denies back pain and Denies limited range of motion Neurologic: Denies focal weakness and Denies convulsions Psychiatric: Psychiatric: Denies depression and Denies mood swings PMFSH Past Medical History Medical History (Updated 12/25/20 @ 11:07 by Naeem Haque MD) Cardiac defibrillator in place CHF (congestive heart failure) Cholelithiasis CKD (chronic kidney disease), stage II Embolism of kidney Gallstones Hypertension NICM (nonischemic cardiomyopathy) NSVT (nonsustained ventricular tachycardia) Renal infarct Family History Family History Other CAD (coronary artery disease) Social History Social History Household Members: Family Housing: Apartment Do you presently have visiting nurse or other home services: No Alcohol intake: never Patient Tobacco Use Status: Never used Tobacco Advance Directives Date on File: 03/20/20 service: Yes Current occupational status: employed Meds Allergies Allergy/AdvReac Type Severity Reaction Status Date / Time No Known Allergies Allergy Verified 12/23/20 02:04 [No Known Allergies*] Active Medications: Current Medications Generic Name Dose Route Start Last Admin Trade Name Freq PRN Reason Stop Dose Admin Acetaminophen 650 mg 12/23/20 08:49 Acetaminophen 325 Mg Tablet PO Q6H PRN Pain, Mild (Pain Scale 1-3) Carvedilol 12.5 mg 12/23/20 09:00 12/23/20 08:49 Carvedilol 12.5 Mg Tablet PO 12.5 mg BID [facility] Administration Protocol Lisinopril 40 mg 12/23/20 09:00 12/23/20 08:48 Lisinopril 40 Mg Tablet PO 40 mg DAILY [facility] Administration Protocol Magnesium Hydroxide 30 ml 12/23/20 08:49 Milk Of Magnesia 30 Ml Oral.Susp PO DAILY PRN Constipation Melatonin 6 mg 12/23/20 08:49 Melatonin 3 Mg Tablet PO BEDTIME PRN Insomnia Sodium Chloride 3 ml 12/23/20 16:00 0.9 % Sodium Chloride Flush 3 Ml Syringe IVFLUSH QSHIFT [facility] Home Medications Medication Instructions Recorded Confirmed Last Taken Type lisinopril 40 mg tablet 40 mg PO DAILY 11/29/20 12/23/20 12/22/20 History Physical Exam Vital Signs: Vital Signs: Last Vital Signs Temp 97.0 F 12/23/20 10:39 Pulse 53 12/23/20 10:39 Resp 20 12/23/20 10:39 BP 160/87 H 12/23/20 10:39 Pulse Ox 96 12/23/20 10:39 Body Mass Index 39.2 Const: General: comfortable and no acute distress Orientation/consciousness: patient oriented x3 Neck: Neck: Yes no lymphadenopathy Resp: Auscultation: clear to auscultation bilaterally Cardio: Rhythm: regular rhythm GI: Other: No Marie's sign, no tenderness on right upper quadrant currently Palpation (GI): Soft to palpation, nontender and no guarding Neuro: General: patient oriented x3 Results Labs Result diagrams: 12/23/20 02:47 12/24/20 08:12 Labs: Abnormal lab results 12/23/20 12/23/20 12/23/20 Range/Units 02:47 02:47 02:47 RBC 4.33 L (4.60-5.80) X10*6/uL Hgb 13.1 L (14.0-18.0) g/dl Hct 39.4 L (42-52) % Chloride 111 H (96-108) mmol/L BUN 31 H (9-16) mg/dL Creatinine 1.82 H (0.5-1.4) mg/dL Random Glucose 129 H (60-115) mg/dL B-Natriuretic Peptide 1004 H (<100) pg/mL Short CBC 12/23/20 Range/Units 02:47 WBC 5.9 (4.8-10.8) X10*3/uL Hgb 13.1 L (14.0-18.0) g/dl Hct 39.4 L (42-52) % Plt Count 290 (160-400) X10*3/uL BMP 12/23/20 02:47 Sodium 145 Potassium 4.3 Chloride 111 H Carbon Dioxide 23 BUN 31 H Creatinine 1.82 H Calcium 9.0 Liver Function 12/23/20 Range/Units 02:47 Total Bilirubin 0.8 (0.0-1.0) mg/dL AST 27 (5-37) U/L ALT 33 (0-40) U/L Alkaline Phosphatase 92 (39-117) U/L Albumin 4.3 (3.5-5.0) g/dL All other labs normal. Imaging Abdominal ultrasound report/results: report reviewed and image reviewed Assessment and Plan (1) Gallstones: Status: Acute He has imaging studies in October [address] scan and ultrasound showing gallstones. His ultrasound last night does not show cholecystitis. He does have periodic right upper quadrant and upper abdominal pain suggestive of biliary colic. He actually scheduled to undergo cholecystectomy in 3 weeks. He is admitted because of worsening orthopnea and dyspnea. He has a significant history of CHF. He is to be evaluated by the solar sales associate because of this. He may be able to undergo cholecystectomy as an inpatient depending on his cardiac evaluation. I will inform Dr. Cleveland of this admission on Friday. Procedures Date of Service Date of Service: 12/23/20
--- NOTE | 2020-12-23 11:39 | PM.CNCAR ---
History of Present Illness History of Present Illness Date of Service: 12/23/20 Requesting physician: Del Pagan Chief complaint: SOB/abd pain Narrative: 60-year-old gentleman background history of nonischemic cardiomyopathy likely secondary to uncontrolled hypertension. Last ejection fraction was 15-20%. He has difficult to control blood pressure. On last visit in the office on November 29 we increase his Lasix to 40 mg once a day. He was taking carvedilol 12.5 mg twice a day at that time and lisinopril 40 mg once a day. He was being assessed for cholecystectomy due to cholelithiasis and biliary colic. He said he had right upper quadrant pain and vomiting which brought him to the emergency department. He was also complaining of shortness of breath more than usual. He is saying he is feeling better today. His blood pressure is significantly elevated. He is saying he has been taking medications regularly. He has been watching salt in his diet. Review of Systems Review of Systems: Shortness of breath improving. No more right upper quadrant pain PMFSH Past Medical History Medical History (Updated 12/23/20 @ 10:51 by Yohan Juarez MD) Cardiac defibrillator in place CHF (congestive heart failure) Cholelithiasis CKD (chronic kidney disease), stage II Embolism of kidney Gallstones Hypertension NICM (nonischemic cardiomyopathy) NSVT (nonsustained ventricular tachycardia) Renal infarct Family History Family History Other CAD (coronary artery disease) Social History Social History Household Members: Family Housing: Apartment Do you presently have visiting nurse or other home services: No Alcohol intake: never Patient Tobacco Use Status: Never used Tobacco Use of substances other than those prescribed or required for medical reasons: No Have you been hit, kicked, punched, or otherwise hurt by someone within the past year? If so, by whom?: No Do you feel safe in your current relationship?: Yes Is there a partner from a previous relationship who is making you feel unsafe now?: No Are you made to feel afraid or neglected: No Advance Directives: Yes Advance Directives on File: Yes Advance Directives Date on File: 03/20/20 Do you have thoughts of harming others: None Do you have a plan to hurt others: No Plan Recently lost weight without trying: No Eating poorly because of decreased appetite: No Nutrition Risks: No Nutritional Risk Poor oral hygiene: No service: Yes Current occupational status: employed Meds Allergies Allergy/AdvReac Type Severity Reaction Status Date / Time No Known Allergies Allergy Verified 12/23/20 02:04 [No Known Allergies*] Active Medications: Current Medications Generic Name Dose Route Start Last Admin Trade Name Freq PRN Reason Stop Dose Admin Acetaminophen 650 mg 12/23/20 08:49 Acetaminophen 325 Mg Tablet PO Q6H PRN Pain, Mild (Pain Scale 1-3) Carvedilol 12.5 mg 12/23/20 09:00 12/23/20 08:49 Carvedilol 12.5 Mg Tablet PO 12.5 mg BID [facility] Administration Protocol Lisinopril 40 mg 12/23/20 09:00 12/23/20 08:48 Lisinopril 40 Mg Tablet PO 40 mg DAILY [facility] Administration Protocol Magnesium Hydroxide 30 ml 12/23/20 08:49 Milk Of Magnesia 30 Ml Oral.Susp PO DAILY PRN Constipation Melatonin 6 mg 12/23/20 08:49 Melatonin 3 Mg Tablet PO BEDTIME PRN Insomnia Sodium Chloride 3 ml 12/23/20 16:00 0.9 % Sodium Chloride Flush 3 Ml Syringe IVFLUSH QSHIFT [facility] Home Medications Medication Instructions Recorded Confirmed Last Taken Type lisinopril 40 mg tablet 40 mg PO DAILY 11/29/20 12/23/20 12/22/20 History Physical Exam Vital Signs: Vital Signs: Last Vital Signs Temp 97.0 F 12/23/20 10:39 Pulse 53 12/23/20 10:39 Resp 20 12/23/20 10:39 BP 160/87 H 12/23/20 10:39 Pulse Ox 96 12/23/20 10:39 Body Mass Index 39.3 GENERAL APPEARANCE: in no acute distress, pleasant. NECK: no carotid bruit, no jugular venous distention. SKIN: no suspicious lesions, warm and dry. HEART: no murmurs, regular rate and rhythm. LUNGS: clear to auscultation bilaterally. ABDOMEN: soft, nontender. EXTREMITIES: mild edema. PERIPHERAL PULSES: equal. NEUROLOGIC: No gross deficits, AAO X 3 Results Labs and Meds Result diagrams: 12/23/20 02:47 12/23/20 02:47 Lab results: Laboratory Results - last 24 hr 12/23/20 12/23/20 12/23/20 02:14 02:47 02:47 WBC 5.9 RBC 4.33 L Hgb 13.1 L Hct 39.4 L MCV 91.0 MCH 30.3 MCHC 33.2 RDW 13.0 Plt Count 290 MPV 10.2 Immature Gran % (Auto) 0.2 Neut % (Auto) 62.1 Lymph % (Auto) 25.8 [place] % (Auto) 9.8 Eos % (Auto) 1.4 Baso % (Auto) 0.7 Lymph # (Auto) 1.5 [place] # (Auto) 0.6 Eos # (Auto) 0.1 Baso # (Auto) 0.0 Abs Immat Gran (auto) 0.01 Absolute Neuts (auto) 3.7 Absolute Nucleated RBC 0.000 Nucleated RBC % (auto) 0.0 Sodium 145 Potassium 4.3 Chloride 111 H Carbon Dioxide 23 Anion Gap 15 BUN 31 H Creatinine 1.82 H Estim Creat Clear Calc 49.0 Estimated GFR 38 Random Glucose 129 H Calcium 9.0 Total Bilirubin 0.8 AST 27 ALT 33 Alkaline Phosphatase 92 B-Natriuretic Peptide Total Protein 6.8 Albumin 4.3 Lipase 37 COVID-19 ([facility]) Negative COVID-19 Clin Com See Note 12/23/20 02:47 WBC RBC Hgb Hct MCV MCH MCHC RDW Plt Count MPV Immature Gran % (Auto) Neut % (Auto) Lymph % (Auto) [place] % (Auto) Eos % (Auto) Baso % (Auto) Lymph # (Auto) [place] # (Auto) Eos # (Auto) Baso # (Auto) Abs Immat Gran (auto) Absolute Neuts (auto) Absolute Nucleated RBC Nucleated RBC % (auto) Sodium Potassium Chloride Carbon Dioxide Anion Gap BUN Creatinine Estim Creat Clear Calc Estimated GFR Random Glucose Calcium Total Bilirubin AST ALT Alkaline Phosphatase B-Natriuretic Peptide 1004 H Total Protein Albumin Lipase COVID-19 ([facility]) COVID-19 Clin Com Imaging Radiologist's impression: Impressions Chest X-Ray 12/23/20 05:49 IMPRESSION: No acute pulmonary findings. Enlarged cardiac silhouette. Abdomen Ultrasound 12/23/20 06:41 IMPRESSION: Cholelithiasis without evidence of acute cholecystitis. Assessment and Plan (1) Acute on chronic systolic CHF (congestive heart failure): Status: Acute (2) NICM (nonischemic cardiomyopathy): Status: Acute 60-year-old gentleman with known nonischemic cardiomyopathy secondary to elevated blood pressures. He is presenting for right upper quadrant pain and vomiting which is due to biliary colic. He has cholelithiasis and was being planned to undergo cholecystectomy. He also complained of shortness of breath and orthopnea. Blood pressure is elevated which has been the underlying issue for his CHF presentations. He does not look significantly volume overloaded. I think we can resume his 40 mg of Lasix p.o.. I am adding amlodipine 5 mg once a day. Please monitor blood pressure closely. He may need cholecystectomy. Once he is better he potentially can proceed with surgery with an intermediate risk for perioperative cardiovascular complications. Thank you for allowing me to participate in the care of your patient. Please feel free to contact me if you have any questions. Procedures Date of Service Date of Service: 12/23/20
[2020-12-23] MEDS: amLODIPine Besylate 5 MG TABLET PO (13:21)
[2020-12-23] MEDS: 0.9 % Sodium Chloride Flush 3 ML SYRINGE IVFLUSH ×2 (15:54→23:25)
[2020-12-24] VITALS (10 sets, daily range): BP systolic 133–176; BP diastolic 70–98; PULSE 48–66; RESP 18; TEMP 36.3–36.7; O2SAT 98–100
--- NOTE | 2020-12-24 07:20 | P.PNIM_ITS ---
Subjective Subjective Date of Service: 12/24/20 Interval History: F/u on heart failure, feels better, intermittent ruq pain Review of Systems Gen: no fever Resp: no sob, no cough CV: no chest, no COREA,+ leg edema GI: No n/v, no abd pain Neuro: No confusion Physical Exam Vital Signs: Vital Signs: Last Vital Signs Temp 97.3 F 12/24/20 04:00 Pulse 61 12/24/20 04:00 Resp 18 12/24/20 04:00 BP 152/70 H 12/24/20 04:30 Pulse Ox 100 12/24/20 04:00 Body Mass Index 39.3 GENERAL APPEARANCE: in no acute distress, pleasant. NECK: no carotid bruit, no jugular venous distention. SKIN: no suspicious lesions, warm and dry. HEART: no murmurs, regular rate and rhythm. LUNGS: clear to auscultation bilaterally. ABDOMEN: soft, nontender. EXTREMITIES:1+ edema. PERIPHERAL PULSES: equal. NEUROLOGIC: No gross deficits, AAO X 3 Objective Data Current Medications Generic Name Dose Route Start Last Admin Trade Name Freq PRN Reason Stop Dose Admin Acetaminophen 650 mg 12/23/20 08:49 Acetaminophen 325 Mg Tablet PO Q6H PRN Pain, Mild (Pain Scale 1-3) Amlodipine Besylate 5 mg 12/23/20 13:00 12/23/20 13:21 Amlodipine Besylate 5 Mg Tablet PO 5 mg DAILY [facility] Administration Protocol Carvedilol 12.5 mg 12/23/20 09:00 12/23/20 20:12 Carvedilol 12.5 Mg Tablet PO Not Given BID [facility] Protocol Lisinopril 40 mg 12/23/20 09:00 12/23/20 08:48 Lisinopril 40 Mg Tablet PO 40 mg DAILY [facility] Administration Protocol Magnesium Hydroxide 30 ml 12/23/20 08:49 Milk Of Magnesia 30 Ml Oral.Susp PO DAILY PRN Constipation Melatonin 6 mg 12/23/20 08:49 Melatonin 3 Mg Tablet PO BEDTIME PRN Insomnia Sodium Chloride 3 ml 12/23/20 16:00 12/23/20 23:25 0.9 % Sodium Chloride Flush 3 Ml Syringe IVFLUSH 3 ml QSHIFT [facility] Administration Labs CBC & Chem 7: 12/23/20 02:47 12/23/20 02:47 Assessment and Plan (1) Acute on chronic systolic CHF (congestive heart failure): Status: Acute (2) Cholelithiasis: Status: Acute Assessment and Plan: 60-year-old male with a past medical history of hypertension, hyperlipidemia, CHF with EF of 20-25%, status post AICD, history of renal infarct, chronic kidney, history of known known cholelithiasis associated with intermittent RUQ pain/epigastric pain, nausea and at times vomitting, his presenting with Ruq/epigastric pain consistent with biliary colic? and has some element of heart failure exacerbation.? 1/mild Acute on chronic? heart failure with reduced EF-- less edema, so -check BMP and consider IV Lasix vs Oral Lasix. Cardiology to asssess him, especially given that he might need surgyer? (CCY) soon.? Continue Coreg and Lisinpril and Monitor electrolytes, Not sure why no longer on Aldactone, check with cardiology 2/ Biliary colic/ Cholethiasis--there is no evidence of choledocholithiasis or cholecystitis--Dr. Ward to assess for CCy during this admission 3/ HTN--continue Lisinopril and Coreg and further adjustment if bP remains high 4/ Heparin for DVT prophylaxis Quality Stroke Does the patient have a stroke diagnosis?: No VTE Prior VTE?: No VTE Risk Level:: Medical - moderate - high VTE Device Contraindication: N/A - Device Ordered VTE Drug Contraindication: N/A - Med Ordered
[2020-12-24 08:01] LABS: Anion Gap 12 (12-20); Blood Urea Nitrogen 33 mg/dL (9-16); Calcium 8.8 mg/dL (8.4-10.2); Carbon Dioxide 28 mmol/L (22-29); Chloride 108 mmol/L (96-108); Creatinine Clr Calc Pharmacy 55.8; Estimated Glomerular Filt Rate 44; Glucose Random 155 mg/dL (60-115); Potassium 4.2 mmol/L (3.3-5.1); Sodium 144 mmol/L (135-145)
[2020-12-24] MEDS: lisinopriL 40 MG TABLET PO (08:18)
[2020-12-24] MEDS: amLODIPine Besylate 5 MG TABLET PO (08:20)
[2020-12-24] MEDS: 0.9 % Sodium Chloride Flush 3 ML SYRINGE IVFLUSH ×3 (08:20→20:14)
[2020-12-24] MEDS: Heparin Sodium,Porcine 5,000 UNIT/ML VIAL 5000 UNIT SUBCUT ×3 (08:20→20:14)
[2020-12-24 08:53] LABS: Anion Gap 10 (12-20); Blood Urea Nitrogen 32 mg/dL (9-16); Calcium 9.2 mg/dL (8.4-10.2); Carbon Dioxide 29 mmol/L (22-29); Chloride 109 mmol/L (96-108); Creatinine Clr Calc Pharmacy 56.2; Estimated Glomerular Filt Rate 44; Glucose Random 79 mg/dL (60-115); Potassium 4.2 mmol/L (3.3-5.1); Sodium 144 mmol/L (135-145)
[2020-12-24 09:00] LABS: B Type Natriuretic Peptide 403 pg/mL (<100)
--- NOTE | 2020-12-24 10:07 | PM.PNGS ---
Subjective Subjective Date of Service: 12/24/20 Interval history: denies abdominal pain - says he has had no pain since yesterday good oral intake has BMs, flatus c/o leg swelling Physical Exam Vital Signs: Vital Signs: Last Vital Signs Temp 97.6 F 12/24/20 07:54 Pulse 55 12/24/20 07:54 Resp 18 12/24/20 07:54 BP 171/95 H 12/24/20 08:20 Pulse Ox 100 12/24/20 07:54 Body Mass Index 39.3 Chemistry 12/23/20 12/24/20 12/24/20 02:47 06:12 08:12 Sodium 145 144 144 Potassium 4.3 4.2 4.2 Carbon Dioxide 29 BUN 31 H 33 H 32 H Creatinine 1.82 H 1.60 H 1.59 H Calcium 9.0 8.8 9.2 Hematology 12/23/20 02:47 WBC 5.9 Hgb 13.1 L Plt Count 290 Const: General: comfortable and no acute distress Eyes: Sclerae: sclerae normal Resp: Effort & Inspection: normal respiratory effort GI: Other: no Marie's sign Palpation (GI): Soft to palpation, not firm, nontender and no guarding Procedures Date of Service Date of Service: 12/24/20 Progress Note: A&P Assessment and plan (1) Cholelithiasis: Status: Acute Assessment and Plan: admitted for worsening, SOB, exertional dypsnea no abdl pain LFTs normal ongoing workup by cardiology will inform Dr. Cleveland tomorrow Fall Risk Details Current Medications: Current Medications Generic Name Dose Route Start Last Admin Trade Name Jacqui PRN Reason Stop Dose Admin Acetaminophen 650 mg 12/23/20 08:49 Acetaminophen 325 Mg Tablet PO Q6H PRN Pain, Mild (Pain Scale 1-3) Amlodipine Besylate 5 mg 12/23/20 13:00 12/24/20 08:20 Amlodipine Besylate 5 Mg Tablet PO 5 mg DAILY [facility] Administration Protocol Carvedilol 12.5 mg 12/23/20 09:00 12/23/20 20:12 Carvedilol 12.5 Mg Tablet PO Not Given BID [facility] Protocol Furosemide 40 mg 12/24/20 09:00 Furosemide 40 Mg Tablet PO DAILY [facility] Protocol Heparin Sodium (Porcine) 5,000 unit 12/24/20 07:30 12/24/20 08:20 Heparin Sodium,Porcine 5,000 Unit/Ml Vial SUBCUT 5,000 unit Q8H [facility] Administration Lisinopril 40 mg 12/23/20 09:00 12/24/20 08:18 Lisinopril 40 Mg Tablet PO 40 mg DAILY [facility] Administration Protocol Magnesium Hydroxide 30 ml 12/23/20 08:49 Milk Of Magnesia 30 Ml Oral.Susp PO DAILY PRN Constipation Melatonin 6 mg 12/23/20 08:49 Melatonin 3 Mg Tablet PO BEDTIME PRN Insomnia Sodium Chloride 3 ml 12/23/20 16:00 12/24/20 08:20 0.9 % Sodium Chloride Flush 3 Ml Syringe IVFLUSH 3 ml QSHIFT [facility] Administration Time Spent With Patient Time: Total time spent is greater than 50% in coordination of care (as documented) at patient's floor/unit and/or counseling patient: Time with patient: 15 - 24 minutes Quality Stroke Does the patient have a stroke diagnosis?: No VTE Prior VTE?: No VTE Risk Level:: Medical - moderate - high VTE Device Contraindication: N/A - Device Ordered VTE Drug Contraindication: N/A - Med Ordered
[2020-12-24] MEDS: Furosemide 40 MG TABLET PO (10:26)
--- NOTE | 2020-12-24 11:11 | MHC.CM.PN ---
MET WITH PT WHO IS INDEPEDENT PT WILL BE DCD HOME NO SERVCEIS HE WILL SELF ARRANGE TRANSPORTAION HOME
--- NOTE | 2020-12-24 11:41 | PM.PNCARD ---
Subjective Subjective Date of Service: 12/24/20 Interval history: Feeling better. Blood pressure is improving. Physical Exam Vital Signs: Last Vital Signs Temp 98.0 F 12/24/20 11:23 Pulse 63 12/24/20 11:23 Resp 18 12/24/20 11:23 BP 133/74 12/24/20 11:23 Pulse Ox 98 12/24/20 11:23 Body Mass Index 39.3 GENERAL APPEARANCE: in no acute distress, pleasant. NECK: no carotid bruit, no jugular venous distention. SKIN: no suspicious lesions, warm and dry. HEART: no murmurs, regular rate and rhythm. LUNGS: clear to auscultation bilaterally. ABDOMEN: soft, nontender. EXTREMITIES: Mild edema. PERIPHERAL PULSES: equal. NEUROLOGIC: No gross deficits, AAO X 3 Results Labs and Meds Result diagrams: 12/23/20 02:47 12/24/20 08:12 Lab results: Laboratory Results - last 24 hr 12/24/20 12/24/20 12/24/20 06:12 08:12 08:12 Sodium 144 144 Potassium 4.2 4.2 Chloride 108 109 H Carbon Dioxide 28 29 Anion Gap 12 10 L BUN 33 H 32 H Creatinine 1.60 H 1.59 H Estim Creat Clear Calc 55.8 56.2 Estimated GFR 44 44 Random Glucose 155 H 79 D Calcium 8.8 9.2 B-Natriuretic Peptide 403 H Progress Note: A&P Assessment and plan (1) Chronic systolic heart failure: Status: Acute (2) Hypertension: Status: Acute Assessment and Plan: Pleasant 58-year-old gentleman with nonischemic cardiomyopathy secondary to uncontrolled hypertension. Clinically euvolemic right now. Blood pressure control is improving with addition of amlodipine. He has cholelithiasis and was due to get cholecystectomy. He is admitted with biliary colic. I think he can proceed with surgery with an intermediate risk for perioperative cardiovascular complications. Thank you for allowing me to participate in the care of your patient. Please feel free to contact me if you have any questions. Fall Risk Details Current Medications: Current Medications Generic Name Dose Route Start Last Admin Trade Name Freq PRN Reason Stop Dose Admin Acetaminophen 650 mg 12/23/20 08:49 Acetaminophen 325 Mg Tablet PO Q6H PRN Pain, Mild (Pain Scale 1-3) Amlodipine Besylate 5 mg 12/23/20 13:00 12/24/20 08:20 Amlodipine Besylate 5 Mg Tablet PO 5 mg DAILY [facility] Administration Protocol Carvedilol 12.5 mg 12/23/20 09:00 12/24/20 10:17 Carvedilol 12.5 Mg Tablet PO Not Given BID [facility] Protocol Furosemide 40 mg 12/24/20 09:00 12/24/20 10:26 Furosemide 40 Mg Tablet PO 40 mg DAILY [facility] Administration Protocol Heparin Sodium (Porcine) 5,000 unit 12/24/20 07:30 12/24/20 08:20 Heparin Sodium,Porcine 5,000 Unit/Ml Vial SUBCUT 5,000 unit Q8H [facility] Administration Lisinopril 40 mg 12/23/20 09:00 12/24/20 08:18 Lisinopril 40 Mg Tablet PO 40 mg DAILY [facility] Administration Protocol Magnesium Hydroxide 30 ml 12/23/20 08:49 Milk Of Magnesia 30 Ml Oral.Susp PO DAILY PRN Constipation Melatonin 6 mg 12/23/20 08:49 Melatonin 3 Mg Tablet PO BEDTIME PRN Insomnia Sodium Chloride 3 ml 12/23/20 16:00 12/24/20 08:20 0.9 % Sodium Chloride Flush 3 Ml Syringe IVFLUSH 3 ml QSHIFT [facility] Administration Time Spent With Patient Time: Total time spent is greater than 50% in coordination of care (as documented) at patient's floor/unit and/or counseling patient: Time with patient: 15 - 24 minutes Progress Note: Quality Stroke Does the patient have a stroke diagnosis?: No Procedures Date of Service Date of Service: 12/24/20
[2020-12-24] MEDS: carvediloL 12.5 MG TABLET PO (20:13)
[2020-12-25 01:48] VITALS: PULSE 54
[2020-12-25 04:00] VITALS: BP 184/91; PULSE 71; RESP 18; TEMP 36.3; O2SAT 100
[2020-12-25 04:25] VITALS: BP 174/84; PULSE 66
[2020-12-25] MEDS: Acetaminophen 325 MG TABLET 650 MG PO (04:55)
[2020-12-25] MEDS: Heparin Sodium,Porcine 5,000 UNIT/ML VIAL 5000 UNIT SUBCUT (04:56)
[2020-12-25 07:47] VITALS: BP 176/90; PULSE 61; RESP 18; TEMP 36.7; O2SAT 99
[2020-12-25] MEDS: Furosemide 40 MG TABLET PO (08:49)
[2020-12-25 08:50] VITALS: BP 176/90; PULSE 61
[2020-12-25] MEDS: amLODIPine Besylate 5 MG TABLET PO (08:50)
[2020-12-25] MEDS: carvediloL 12.5 MG TABLET PO (08:50)
[2020-12-25] MEDS: lisinopriL 40 MG TABLET PO (08:50)
[2020-12-25] MEDS: 0.9 % Sodium Chloride Flush 3 ML SYRINGE IVFLUSH (08:50)
--- NOTE | 2020-12-25 11:03 | PM.PNCARD ---
Subjective Subjective Date of Service: 12/25/20 Principal diagnosis: Cardiomyopathy, hypertension Interval history: From cardiac perspective patient is currently not having any symptoms. Denies any worsening orthopnea, PND. Blood pressure is uncontrolled and is upset because his medications were changed over the weekend. Review of Systems Constitutional: Reports no additional constitutional complaints Cardiovascular: Reports no additional cardiovascular complaints Respiratory: Reports no additional respiratory complaints Gastrointestinal: Reports no additional gastrointestinal complaints Musculoskeletal: Reports no additional musculoskeletal complaints Skin/Breast: Reports system reviewed and no additional complaints, except as docu Reports system reviewed and no additional complaints, except as documented Endocrine: Reports no additional endocrine complaints Physical Exam Vital Signs: Last Vital Signs Temp 98.0 F 12/25/20 07:47 Pulse 61 12/25/20 08:50 Resp 18 12/25/20 07:47 BP 176/90 H 12/25/20 08:50 Pulse Ox 99 12/25/20 07:47 Body Mass Index 39.3 Const General: cooperative, comfortable, alert and awake Nutritional Appearance: obese Orientation/consciousness: patient oriented x3 Neck Neck: Yes trachea midline, Yes supple and Yes no JVD Resp Effort & Inspection: normal respiratory effort Auscultation: clear to auscultation bilaterally Neuro General: patient oriented x3 and no focal motor deficits Extrem General: Yes no clubbing, cyanosis or edema Results Labs and Meds Result diagrams: 12/23/20 02:47 12/24/20 08:12 Progress Note: A&P Assessment and plan (1) Preoperative cardiovascular examination: Status: Acute Assessment and Plan: Preoperative cardiovascular risk stratification for possible cholecystectomy. Intermediate risk under general anesthesia. He has underlying significant LV systolic dysfunction suspected due to hypertensive cardiomyopathy without any overt signs of congestive awful any symptoms at this point time. He is currently at intermediate risk for perioperative cardiovascular morbidity mortality and is currently optimized. Pay attention closely to fluid shift during surgery. Continue all medications in the perioperative.. Blood pressure remains uncontrolled. Continue maximize amlodipine therapy. If blood pressure remains difficult control may add hydralazine to his regimen. Not a candidate for Aldactone therapy as he has some history of hyperkalemia in the past. Continue carvedilol. Consider switching lisinopril eventually to Entresto therapy can be done as an outpatient. (2) NICM (nonischemic cardiomyopathy): Status: Acute Assessment and Plan: Severe nonischemic cardiomyopathy. Clinically euvolemic and well compensated. Continue current diuretic dose. Daily weight monitoring and avoidance of salt loading. Continue carvedilol and lisinopril therapy for now. Eventually switch his neurohormonal modulation from lisinopril to Entresto. Aggressive control blood pressure is very important to prevent further ongoing cardiomyopathy process. This was discussed with him. He understands and agrees. (3) Uncontrolled hypertension: Status: Acute Assessment and Plan: As above. Will sign of the case. Thank you for allowing us to partake in his care Fall Risk Details Current Medications: Current Medications Generic Name Dose Route Start Last Admin Trade Name Freq PRN Reason Stop Dose Admin Acetaminophen 650 mg 12/23/20 08:49 12/25/20 04:55 Acetaminophen 325 Mg Tablet PO 650 mg Q6H PRN Administration Pain, Mild (Pain Scale 1-3) Amlodipine Besylate 5 mg 12/23/20 13:00 12/25/20 08:50 Amlodipine Besylate 5 Mg Tablet PO 5 mg DAILY NENA Administration Protocol Carvedilol 12.5 mg 12/23/20 09:00 12/25/20 08:50 Carvedilol 12.5 Mg Tablet PO 12.5 mg BID NENA Administration Protocol Furosemide 40 mg 12/24/20 09:00 12/25/20 08:49 Furosemide 40 Mg Tablet PO 40 mg DAILY NENA Administration Protocol Heparin Sodium (Porcine) 5,000 unit 12/24/20 07:30 12/25/20 04:56 Heparin Sodium,Porcine 5,000 Unit/Ml Vial SUBCUT 5,000 unit Q8H NENA Administration Lisinopril 40 mg 12/23/20 09:00 12/25/20 08:50 Lisinopril 40 Mg Tablet PO 40 mg DAILY NENA Administration Protocol Magnesium Hydroxide 30 ml 12/23/20 08:49 Milk Of Magnesia 30 Ml Oral.Susp PO DAILY PRN Constipation Melatonin 6 mg 12/23/20 08:49 Melatonin 3 Mg Tablet PO BEDTIME PRN Insomnia Sodium Chloride 3 ml 12/23/20 16:00 12/25/20 08:50 0.9 % Sodium Chloride Flush 3 Ml Syringe IVFLUSH 3 ml QSHIFT NENA Administration Time Spent With Patient Time: Total time spent is greater than 50% in coordination of care (as documented) at patient's floor/unit and/or counseling patient: Time with patient: 25 - 35 minutes Progress Note: Quality Stroke Does the patient have a stroke diagnosis?: No Procedures Date of Service Date of Service: 12/25/20
[2020-12-25 11:15] VITALS: BP 147/84; PULSE 57; RESP 18; TEMP 36.3; O2SAT 98
--- NOTE | 2020-12-25 12:48 | PM.DS ---
DS: Providers Provider Date of Service: 12/25/20 Date of admission: 12/23/20 09:12 Primary care physician: Unknown Physician Consults: 12/23/20 08:51 Consult to Cardiology Routine Consulting Provider: Ovidio Bobo Reason for consultation: Heart failure exacerbation Has provider been notified: No 12/23/20 09:14 Consult to General Surgery Routine Consulting Provider: Yohan Juarez Reason for consultation: biliary colic, known to Megha Has provider been notified: No DS: Diagnosis Discharge Diagnosis (1) Preoperative cardiovascular examination: Status: Acute (2) NICM (nonischemic cardiomyopathy): Status: Acute (3) Uncontrolled hypertension: Status: Acute DS: Medications Discharge Medications Home Medications: Home Medications Medication Instructions Recorded Confirmed lisinopril 40 mg tablet 40 mg PO DAILY 11/29/20 12/23/20 Previous Rx's Medication Instructions Recorded carvedilol 12.5 mg tablet 12.5 mg PO BID #90 tab 11/29/20 furosemide 40 mg tablet 40 mg PO DAILY #90 tab 11/29/20 amlodipine 5 mg tablet 5 mg PO DAILY #30 tab 12/25/20 DS: Summary Hospital Course Hospital Course: 60-year-old male with a past medical history of hypertension, hyperlipidemia, CHF with EF of 20-25%, status post AICD, history of renal infarct, chronic kidney, history of known known cholelithiasis associated with intermittent RUQ pain/epigastric pain, nausea and at times vomitting, his presenting with Ruq/epigastric pain consistent with biliary colic? and has some element of heart failure exacerbation.? 1/mild Acute on chronic? heart failure with reduced EF--He has received IV Lasix x 1 in ED but did not need fruther IV diuretics. Was seen by Cardiology and continued on all medication and Norvasc 5 mg added to controll Blood pressure. He is presently Euvolemic. He is not a candidate for Aladcatone due to prior incident with Hyperkalemia with Aldactone. 2/ Biliary colic/ Cholethiasis--there is no evidence of choledocholithiasis--Dr. Ward has been aware of him and has surgery scheduled for 01/10. Presently without pain, LFTs and lipase were unremarkable 3/ HTN--continue Lisinopril and Coreg, BP has been on the higher side so Noravasc 5 has been added with much improvment in blood pressure, BP is better, to follow with PCP for further adjustment as needed. Time Spent with Patient Time attestation: Total time spent providing and/or coordinating discharge services: Discharge coordination time: Greater than 30 minutes Quality: Stroke Does the patient have a stroke diagnosis?: No Physical Exam Vital Signs: Vital Signs: Last Vital Signs Temp 97.4 F 12/25/20 11:15 Pulse 57 12/25/20 11:15 Resp 18 12/25/20 11:15 BP 147/84 H 12/25/20 11:15 Pulse Ox 98 12/25/20 11:15 Body Mass Index 39.3 General: AO X 3, no acute distress Resp: CTA bilateral CVS: S1,S2,RRR GI: +BS, NT, no distention Skin: No rash Neuro: motor grossly intact Psych: appropriate affect Discharge Plan Discharge Anticipated Discharge Date/Time: 12/25/20 12:41 Patient Disposition: Home, Self-Care Discharge Diagnosis: Gallstone, heart failure Referrals: Kevin Ross [Emergency Nurse] - 1 Week Ovidio Bobo MD [Physician] - 1 Week Physician,Unknown [Primary Care Provider] - 1 Week Discharge Medications: New amlodipine 5 mg Tablet 5 mg PO DAILY Qty: 30 RF: 0 Continued lisinopril 40 mg tablet 40 mg PO DAILY RF: 0 carvedilol 12.5 mg tablet 12.5 mg PO BID Qty: 90 RF: 3 furosemide 40 mg tablet 40 mg PO DAILY Qty: 90 RF: 3 Discharge Orders: Discharge Order (Routine); Ordered 12/25/20 Ordered By: Del Pagan Diet: advance to usual diet Activity on Discharge: As tolerated Stand Alone Forms: Patient Portal Discharge page Care Plan Goals: Avoid rehospitalization, ultimtely to have gallblader taken out Health Concerns: gallstone, heart failure and uncontrolled high blood pressure Plan of Treatment: Follow up with Dr. Cleveland for gallblader surgery, follow up with your primary care doctor for further blood pressure medication adjustment. Assessment: As above
--- NOTE | 2020-12-25 12:57 | MHC.CM.PN ---
pt dcd home with no skilled servceis orderd by
== END 2020-12-25 13:56 | disposition home or self-care (01) | DRG 291 ==
LOC: HO.ED 06:52 → HO.EDOVER 09:14 → HO.IMC 09:27
PROVIDERS: Admitting Provider Internal Medicine; Emergency Provider Student in an Organized Health Care Education/Training Program; Visit Provider Internal Medicine
DX: I13.0 Hypertensive heart and chronic kidney disease with heart failure and stage 1 through stage 4 chronic kidney disease, or unspecified chronic kidney disease (principal); I50.23 Acute on chronic systolic (congestive) heart failure; I42.8 Other cardiomyopathies; Z95.810 Presence of automatic (implantable) cardiac defibrillator; N18.2 Chronic kidney disease, stage 2 (mild); Z20.822 Contact with and (suspected) exposure to COVID-19; K80.20 Calculus of gallbladder without cholecystitis without obstruction; Z79.899 Other long term (current) drug therapy
CPT/HCPCS: 36415; 71045; 76705; 80048; 80053; 83690; 83880; 85025; 87635; 93005; 99285; J1940; J2405

== ENCOUNTER → 2021-01-03 11:20 | Outpatient (BNVA) | payer OTHER, SELFPAY | PROVIDERS: Visit Provider Internal Medicine Cardiovascular Disease | DX: Z01.810 Encounter for preprocedural cardiovascular examination (principal); I42.8 Other cardiomyopathies; I47.2 Ventricular tachycardia; I50.22 Chronic systolic (congestive) heart failure; I13.0 Hypertensive heart and chronic kidney disease with heart failure and stage 1 through stage 4 chronic kidney disease, or unspecified chronic kidney disease; N18.2 Chronic kidney disease, stage 2 (mild); Z95.810 Presence of automatic (implantable) cardiac defibrillator; Z79.899 Other long term (current) drug therapy | CPT/HCPCS: 99212 ==

== ENCOUNTER 2021-03-28 07:19 | Emergency (ER) | payer OTHER, SELFPAY ==
--- NOTE | ~2021-03-28 | XR_ITS ---
EXAMINATION: XR CHEST CLINICAL INFORMATION: Shortness of breath COMPARISON: December 23, 2020 and December 15, 2020 TECHNIQUE: AP portable view of the chest was obtained. FINDINGS: There is no evidence of acute parenchymal disease, pneumothorax or pleural effusion. The cardiopericardial silhouette appears mildly enlarged. No evidence of pulmonary edema. AICD seen in place. XR/XR chest 1V IMPRESSION: No acute disease.
[2021-03-28 07:22] VITALS: BP 156/94; PULSE 74; RESP 18; TEMP 36.8; O2SAT 99; BMI 39.2
--- NOTE | 2021-03-28 07:25 | ECG_ITS ---
Test Reason : sob Blood Pressure : / mmHG Vent. Rate : 070 BPM Atrial Rate : 070 BPM P-R Int : 198 ms QRS Dur : 124 ms QT Int : 432 ms P-R-T Axes : 072 -17 118 degrees QTc Int : 466 ms Normal sinus rhythm Non-specific intra-ventricular conduction block Abnormal ECG When compared with ECG of 23-DEC-2020 06:22, Premature ventricular complexes are no longer Present Referred By: Generic ED Physician Electronically Signed By:KEITH ARANDA
--- NOTE | 2021-03-28 07:36 | ED.SOB ---
HPI - SOB/Dyspnea General Chief Complaint: Dyspnea Stated Complaint: sob Time Seen by Provider: 03/28/21 07:32 Source: patient Mode of arrival: ambulatory Limitations: no limitations History of Present Illness HPI Narrative: Shortness of breath since yesterday, denies cough or chest pain. Some nausea and some abdominal pain. Patient unable to lie flat. patient has a long history of CHF patient has been taking his medication, he states that there were medication changes 5 months ago. MD elicited complaint: shortness of breath Pertinent past history: congestive heart failure Onset (ago): day(s) Timing: constant Severity: moderate Exacerbating factors: exertion and other (lying flat) Known history of: congestive heart failure Related Data Home Medications Medication Instructions Recorded Confirmed furosemide 40 mg tablet 40 mg PO .mwf tab 01/03/21 01/04/21 Previous Rx's Medication Instructions Recorded carvedilol 12.5 mg tablet 12.5 mg PO BID #90 tab 11/29/20 amlodipine 5 mg tablet 5 mg PO DAILY 90 Days #90 tab 01/03/21 lisinopril 40 mg tablet 40 mg PO DAILY #90 tab 02/14/21 Allergies Allergy/AdvReac Type Severity Reaction Status Date / Time No Known Allergies Allergy Verified 01/03/21 11:32 [No Known Allergies*] Review of Systems Constitutional: Constitutional: Reports no additional constitutional complaints Eyes: Eyes: Reports no additional eye complaints ENT: Denies dizziness Cardiovascular: Cardiovascular: Reports no additional cardiovascular complaints Respiratory: Respiratory: Reports as per HPI Gastrointestinal: Gastrointestinal: Reports no additional gastrointestinal complaints Musculoskeletal: Musculoskeletal: Reports no additional musculoskeletal complaints Integumentary/Breasts: Skin/Breast: Denies rash Neurologic: Reports system reviewed and no additional complaints, except as documented, Denies dizziness and Denies Sensory deficit (Neuro) Psychiatric: Psychiatric: Denies anxiety [facility] Past Medical History Medical History Cardiac defibrillator in place CHF (congestive heart failure) Chronic systolic heart failure CKD (chronic kidney disease), stage II Embolism of kidney Gallstones Hypertension NICM (nonischemic cardiomyopathy) NSVT (nonsustained ventricular tachycardia) Renal infarct Surgical History History of cardiac defibrillator placement Family History Family History Other CAD (coronary artery disease) Social History Social History Household Members: Family Housing: Apartment Do you presently have visiting nurse or other home services: No Alcohol intake: never Patient Tobacco Use Status: Never used Tobacco Advance Directives Date on File: 10/18/20 service: Yes Current occupational status: employed Physical Exam Vital Signs: Vital Signs: Last Vital Signs Temp 97.7 F 03/28/21 11:44 Pulse 66 03/28/21 11:44 Resp 16 03/28/21 11:44 BP 141/92 H 03/28/21 11:44 Pulse Ox 98 03/28/21 11:44 BMI result Body Mass Index 39.2 Neuro: Sensory Exam: No Sensory deficit (Neuro) Course Reevaluation(s) Reevaluation #1: discussed with Dr. Linn. No evidence of worsening heart failure or damage will dc home Time: 13:35 MDM - SOB/Dyspnea Lab Data Result diagrams: 03/28/21 08:05 03/28/21 08:05 Labs: Lab Results 03/28/21 03/28/21 03/28/21 Range/Units 08:05 08:05 08:05 WBC 5.7 (4.8-10.8) X10*3/uL RBC 4.28 L (4.60-5.80) X10*6/uL Hgb 12.6 L (14.0-18.0) g/dl Hct 38.3 L (42.0-52.0) % MCV 89.5 (80.0-98.0) fL MCH 29.4 (27.0-33.0) pg MCHC 32.9 (31.0-36.0) g/dl RDW 13.2 (11.0-16.0) % Plt Count 278 (160-400) X10*3/uL MPV 9.7 (9.4-12.4) fL Immature Gran % (Auto) 0.3 (0.0-0.4) % Neut % (Auto) 61.9 (45-73) % Lymph % (Auto) 23.7 (20-40) % [place] % (Auto) 10.1 (2-11) % Eos % (Auto) 3.1 (0-4) % Baso % (Auto) 0.9 (0-2) % Lymph # (Auto) 1.4 (1.2-4.9) X10*3/uL [place] # (Auto) 0.6 (0.1-1.2) X10*3/uL Eos # (Auto) 0.2 (0.0-0.4) X10*3/uL Baso # (Auto) 0.1 (0.0-0.2) X10*3/uL Abs Immat Gran (auto) 0.02 (0.00-0.03) X10*3/uL Absolute Neuts (auto) 3.5 (2.0-8.3) x10*3/uL Absolute Nucleated RBC 0.000 (0.0-0.012) X10*3/uL Nucleated RBC % (auto) 0.0 (0.0-0.2) /100WBC Sodium 143 (135-145) mmol/L Potassium 4.3 (3.3-5.1) mmol/L Chloride 111 H (96-108) mmol/L Carbon Dioxide 26 (22-29) mmol/L Anion Gap 10 L (12-20) BUN 27 H (9-16) mg/dL Creatinine 1.61 H (0.5-1.4) mg/dL Estim Creat Clear Calc 55.4 Estimated GFR 44 Random Glucose 119 H D (60-115) mg/dL Calcium 9.3 (8.4-10.2) mg/dL Troponin I High Sens 59.6 H (<3.5-35.0) ng/L B-Natriuretic Peptide 591 H (<100) pg/mL 03/28/21 Range/Units 11:42 WBC (4.8-10.8) X10*3/uL RBC (4.60-5.80) X10*6/uL Hgb (14.0-18.0) g/dl Hct (42.0-52.0) % MCV (80.0-98.0) fL MCH (27.0-33.0) pg MCHC (31.0-36.0) g/dl RDW (11.0-16.0) % Plt Count (160-400) X10*3/uL MPV (9.4-12.4) fL Immature Gran % (Auto) (0.0-0.4) % Neut % (Auto) (45-73) % Lymph % (Auto) (20-40) % [place] % (Auto) (2-11) % Eos % (Auto) (0-4) % Baso % (Auto) (0-2) % Lymph # (Auto) (1.2-4.9) X10*3/uL [place] # (Auto) (0.1-1.2) X10*3/uL Eos # (Auto) (0.0-0.4) X10*3/uL Baso # (Auto) (0.0-0.2) X10*3/uL Abs Immat Gran (auto) (0.00-0.03) X10*3/uL Absolute Neuts (auto) (2.0-8.3) x10*3/uL Absolute Nucleated RBC (0.0-0.012) X10*3/uL Nucleated RBC % (auto) (0.0-0.2) /100WBC Sodium (135-145) mmol/L Potassium (3.3-5.1) mmol/L Chloride (96-108) mmol/L Carbon Dioxide (22-29) mmol/L Anion Gap (12-20) BUN (9-16) mg/dL Creatinine (0.5-1.4) mg/dL Estim Creat Clear Calc Estimated GFR Random Glucose (60-115) mg/dL Calcium (8.4-10.2) mg/dL Troponin I High Sens 53.6 H (<3.5-35.0) ng/L B-Natriuretic Peptide (<100) pg/mL Imaging Data Chest x-ray: My impression: mild CHF Discharge Plan Discharge Clinical Impression: NICM (nonischemic cardiomyopathy) Chronic heart failure Qualifiers: Heart failure type: combined systolic and diastolic Qualified Code(s): I50.42 - Chronic combined systolic (congestive) and diastolic (congestive) heart failure Patient Disposition: Home, Self-Care Instructions: Left-sided and Right-sided Heart Failure (ED) Prescriptions: No Action lisinopril 40 mg tablet 40 mg PO DAILY Qty: 90 RF: 3 carvedilol 12.5 mg tablet 12.5 mg PO BID Qty: 90 RF: 3 furosemide 40 mg tablet 40 mg PO .mwf RF: 0 amlodipine 5 mg tablet 5 mg PO DAILY 90 Days Qty: 90 RF: 3 Referrals: Jessica Alan MD [Primary Care Provider] - 3 days Ovidio Bobo MD [Physician] - 3 days
[2021-03-28 08:08] LABS: MANUAL DIFF FLAG NO
[2021-03-28 08:12] LABS: Basophils Absolute Auto 0.1 X10*3/uL (0.0-0.2); Basophils Percent Auto 0.9 % (0-2); Eosinophils Absolute Auto 0.2 X10*3/uL (0.0-0.4); Eosinophils Percent Auto 3.1 % (0-4); Hematocrit 38.3 % (42.0-52.0); Hemoglobin 12.6 g/dl (14.0-18.0); Imm Gran Abs Auto 0.02 X10*3/uL (0.00-0.03); Imm Gran Pct Auto 0.3 % (0.0-0.4); Lymphocytes Absolute Auto 1.4 X10*3/uL (1.2-4.9); Lymphocytes Percent Auto 23.7 % (20-40); Mean Corpuscular HGB Conc 32.9 g/dl (31.0-36.0); Mean Corpuscular Hemoglobin 29.4 pg (27.0-33.0); Mean Corpuscular Volume 89.5 fL (80.0-98.0); Mean Platelet Volume 9.7 fL (9.4-12.4); Monocytes Absolute Auto 0.6 X10*3/uL (0.1-1.2); Monocytes Percent Auto 10.1 % (2-11); Neutrophils Absolute Auto 3.5 x10*3/uL (2.0-8.3); Neutrophils Percent Auto 61.9 % (45-73); Platelet Count 278 X10*3/uL (160-400); Red Blood Count 4.28 X10*6/uL (4.60-5.80); Red Cell Distribution Width 13.2 % (11.0-16.0); White Blood Count 5.7 X10*3/uL (4.8-10.8)
[2021-03-28 08:19] VITALS: BP 122/82; PULSE 61; RESP 16; O2SAT 98
[2021-03-28 08:31] LABS: B Type Natriuretic Peptide 591 pg/mL (<100); Troponin-I High Sensitivity 59.6 ng/L (<3.5-35.0)
[2021-03-28 08:32] LABS: Anion Gap 10 (12-20); Blood Urea Nitrogen 27 mg/dL (9-16); Calcium 9.3 mg/dL (8.4-10.2); Carbon Dioxide 26 mmol/L (22-29); Chloride 111 mmol/L (96-108); Creatinine Clr Calc Pharmacy 55.4; Estimated Glomerular Filt Rate 44; Glucose Random 119 mg/dL (60-115); Potassium 4.3 mmol/L (3.3-5.1); Sodium 143 mmol/L (135-145)
[2021-03-28] MEDS: Nitroglycerin 2 % Oint 1 GM Packet 1 INCH TRANSDERMA (08:43)
[2021-03-28] MEDS: Furosemide 40 MG TABLET PO (08:43)
[2021-03-28] MEDS: Acetaminophen 325 MG TABLET 650 MG PO (10:55)
--- NOTE | 2021-03-28 10:59 | ECG_ITS ---
Test Reason : EPIGASTRIC PAIN Blood Pressure : / mmHG Vent. Rate : 067 BPM Atrial Rate : 067 BPM P-R Int : 202 ms QRS Dur : 126 ms QT Int : 440 ms P-R-T Axes : 067 -18 121 degrees QTc Int : 464 ms Sinus rhythm with frequent Premature ventricular complexes Non-specific intra-ventricular conduction block Abnormal ECG When compared with ECG of 28-MAR-2021 07:26, Premature ventricular complexes are now Present Referred By: Rd Guevara Electronically Signed By:KEITH ARANDA
[2021-03-28 11:44] VITALS: BP 141/92; PULSE 66; RESP 16; TEMP 36.5; O2SAT 98
[2021-03-28 12:08] LABS: Troponin-I High Sensitivity 53.6 ng/L (<3.5-35.0)
== END 2021-03-28 14:01 | disposition home or self-care (01) ==
PROVIDERS: Emergency Provider Emergency Medicine; PCP Internal Medicine
DX: I50.42 Chronic combined systolic (congestive) and diastolic (congestive) heart failure (principal); R06.02 Shortness of breath; Z79.899 Other long term (current) drug therapy
CPT/HCPCS: 36415; 71045; 80048; 83880; 84484; 85025; 93005; 99284; 99285

== ENCOUNTER → 2021-03-29 14:38 | Outpatient (BNVA) | payer OTHER, SELFPAY | PROVIDERS: PCP Internal Medicine; Visit Provider Internal Medicine Cardiovascular Disease | DX: I50.42 Chronic combined systolic (congestive) and diastolic (congestive) heart failure (principal); I42.8 Other cardiomyopathies | CPT/HCPCS: 99212 ==

== ENCOUNTER → 2021-04-05 11:04 | Outpatient (BNVA) | payer OTHER, SELFPAY | PROVIDERS: Visit Provider Surgery | DX: K81.1 Chronic cholecystitis (principal); I42.8 Other cardiomyopathies; N18.2 Chronic kidney disease, stage 2 (mild); Z95.810 Presence of automatic (implantable) cardiac defibrillator | CPT/HCPCS: 99212 ==

== ENCOUNTER 2021-07-02 17:35 | Inpatient (IN) | payer OTHER, SELFPAY ==
--- NOTE | ~2021-07-02 | CT_ITS ---
EXAMINATION: CT HEAD WITHOUT CONTRAST CLINICAL INFORMATION: Seizure. On blood thinners. COMPARISON: None. TECHNIQUE: Contiguous axial imaging was performed from the skull base to vertex without intravenous contrast. This CT examination was performed using dose optimization techniques as appropriate, variously including the following: * Automated exposure control * Adjustment of mA and/or kV according to patient size (this includes techniques or standardized protocols for targeted exams where dose is matched to indication/reason for exam; i.e. extremities or head) Use of iterative reconstruction technique DLP: 901 mGy-cm. FINDINGS: There is a large area of hypoattenuation involving the left MCA territory. There is no mass effect or midline shift to suggest that this is acute, but there is also no significant extra-axial dilatation of the left lateral ventricle. There is no evidence of acute intracranial hemorrhage. No abnormal mass effect or midline shift is seen. Tubbs to white matter differentiation is otherwise well preserved. No extra-axial fluid collections are identified. No hydrocephalus. Proportional prominence of the ventricles and sulcal spaces is consistent with mild volume loss. Patchy periventricular and deep white matter hypoattenuation is consistent with mild small vessel ischemic changes. The osseous structures and soft tissues are normal. The mastoid air cells and visualized portions of the paranasal sinuses are well aerated. CT/CT head/brain wo con IMPRESSION: Large area of hypoattenuation throughout the left MCA territory likely represents encephalomalacia from a chronic infarct, though there is no prior for comparison. No intracranial hemorrhage.
--- NOTE | ~2021-07-02 | XR_ITS ---
EXAMINATION: XR CHEST CLINICAL INFORMATION: Shortness of breath COMPARISON: 03/28/2021 TECHNIQUE: Frontal view of the chest was obtained. FINDINGS: Again seen is cardiomegaly and a single lead left chest wall defibrillator lung volumes are low. No infiltrates, effusions or lung masses are seen.. XR/XR chest 1V IMPRESSION: No acute intrathoracic disease. No significant interval change when compared to the prior study.
--- NOTE | 2021-07-02 17:55 | ECG_ITS ---
Test Reason : sob Blood Pressure : / mmHG Vent. Rate : 114 BPM Atrial Rate : 047 BPM P-R Int : 000 ms QRS Dur : 120 ms QT Int : 358 ms P-R-T Axes : 000 -23 158 degrees QTc Int : 493 ms Poor data quality Undetermined rhythm Septal infarct (cited on or before 02-JUL-2021) ST & T wave abnormality, consider lateral ischemia Abnormal ECG When compared with ECG of 28-MAR-2021 11:35, Current undetermined rhythm precludes rhythm comparison, needs review Serial changes of evolving Septal infarct Present Please repeat the EKG Referred By: Shaina Howell Electronically Signed By:KAILYN MUHAMMAD MD
[2021-07-02 17:59] VITALS: BP 143/114; PULSE 105; RESP 26; TEMP 36.4; O2SAT 99; BMI 33.4
--- NOTE | 2021-07-02 18:12 | ED_ITS ---
HPI - SOB/Dyspnea General Chief Complaint: Dyspnea Stated Complaint: SOB X'S 2 WEEKS,88% RA,96% 2LPM PER EMS Time Seen by Provider: 07/02/21 17:50 Source: patient and EMS Mode of arrival: EMS Limitations: no limitations History of Present Illness HPI Narrative: Patient comes to emergency room via EMS complaining of shortness of breath. EMS reports that the family informed them that the patient has been having shortness of breath for the last 2 weeks. Patient had a CVA recently, was discharged from rehab 2 weeks ago. Due to language barrier, the patient and his only speaks [place], they were unable to get further information. The patient is a poor historian, states that he has been having epigastric pain for several weeks. Per patient's medical records, patient has history of chronic cholecystitis. Related Data Home Medications Medication Instructions Recorded Confirmed furosemide 40 mg tablet 40 mg PO .mwf tab 01/03/21 03/29/21 Previous Rx's Medication Instructions Recorded carvedilol 12.5 mg tablet 12.5 mg PO BID #90 tab 11/29/20 amlodipine 5 mg tablet 5 mg PO DAILY 90 Days #90 tab 01/03/21 lisinopril 40 mg tablet 40 mg PO DAILY #90 tab 02/14/21 Allergies Allergy/AdvReac Type Severity Reaction Status Date / Time No Known Allergies Allergy Verified 03/29/21 15:06 [No Known Allergies*] Review of Systems Review of Systems: Constitutional : No Weight loss, No Fever, No Chills, No Night Sweats, No Fatigue, No Malaise ENT/Mouth : No Hearing loss, No Ear Pain, No Nasal Congestion, No Sinus Pain, No Hoarseness, No sore throat, No Rhinorrhea, No Swallowing Difficulty Eyes: No Eye Pain, No Swelling, No Redness, No Foreign Body, No Discharge, No Vision Changes Cardiovascular : No Chest Pain Respiratory : No Cough, No Sputum, No Wheezing, No Smoke Exposure, No Dyspnea Gastrointestinal : No Nausea, No Vomiting, No Diarrhea, No Constipation, No abdo jg Pain, No Hematochezia, No Melena Genitourinary : no irregular bleeding, No Dysuria, No Urinary Frequency, No Hematuria, No Urinary Incontinence, No Urgency, No Flank Pain, No Urinary Flow Changes, No Hesitancy Musculoskeletal : No joint pain, No Myalgias, No Joint Swelling Skin : No Skin Lesions, No rash Neuro : No Weakness, No Numbness, No Paresthesias, No Loss of Consciousness, No Dizziness, No Headache Psych : No Anxiety/Panic, No Depression, No SI/HI/AH/VH, No Social Issues, Heme/Lymph: No Bruising, No Bleeding,No Lymphadenopathy Endocrine : No Polyuria, No Polydipsia, No Temperature Intolerance [facility] Past Medical History Medical History Cardiac defibrillator in place CHF (congestive heart failure) Chronic systolic heart failure CKD (chronic kidney disease), stage II Embolism of kidney Gallstones Hypertension NICM (nonischemic cardiomyopathy) NSVT (nonsustained ventricular tachycardia) Renal infarct Surgical History History of cardiac defibrillator placement Family History Family History Other CAD (coronary artery disease) Social History Social History Household Members: Family Housing: Apartment Do you presently have visiting nurse or other home services: No Alcohol intake: never Patient Tobacco Use Status: Never used Tobacco Advance Directives: Yes Advance Directives on File: Yes Advance Directives Date on File: 10/18/20 service: Yes Current occupational status: employed Physical Exam Vital Signs: Vital Signs: Last Vital Signs Temp 97.6 F 07/02/21 17:59 Pulse 112 H 07/02/21 19:47 Resp 22 H 07/02/21 19:47 BP 133/102 H 07/02/21 19:47 Pulse Ox 99 07/02/21 19:47 Oxygen Flow Rate 4 07/02/21 17:59 BMI result Body Mass Index 33.4 Course Course Course Narrative: Patient's baseline BNP is approximately 500, today it is 2000. Patient receiving 40 mg of IV Lasix. Oxygen saturation 97% Patient's heart rate 110-140, blood pressure 138/99. On EKG, patient has atrial fibrillation. To patient's knowledge this is the 1st time he hears of this. Patient's states she she was not aware of this either. Cardiology notes there was no mention of history of atrial fibrillation. Patient has history of V-tach and therefore has an AICD Patient getting 1 dose of 20mg Cardizem According to the family, patient takes Eliquis for blood thinner. It is unclear why patient's INR is 2.6, liver function tests are not elevated After a g of Rocephin, but remains in the 130 systolic, heart rate 85-90, remains in atrial fibrillation I discussed the patient with Dr. Bro, pt being admitted MDM - SOB/Dyspnea Lab Data Result diagrams: 07/02/21 18:46 07/02/21 18:46 Labs: Lab Results 07/02/21 07/02/21 07/02/21 Range/Units 18:23 18:46 18:46 WBC 5.9 (4.8-10.8) X10*3/uL RBC 3.65 L (4.60-5.80) X10*6/uL Hgb 11.2 L (14.0-18.0) g/dl Hct 33.8 L (42.0-52.0) % MCV 92.6 (80.0-98.0) fL MCH 30.7 (27.0-33.0) pg MCHC 33.1 (31.0-36.0) g/dl RDW 14.8 (11.0-16.0) % Plt Count 282 (160-400) X10*3/uL MPV 10.8 (9.4-12.4) fL Immature Gran % (Auto) 0.2 (0.0-0.4) % Neut % (Auto) 57.6 (45-73) % Lymph % (Auto) 26.3 (20-40) % [place] % (Auto) 10.8 (2-11) % Eos % (Auto) 4.1 H (0-4) % Baso % (Auto) 1.0 (0-2) % Lymph # (Auto) 1.5 (1.2-4.9) X10*3/uL [place] # (Auto) 0.6 (0.1-1.2) X10*3/uL Eos # (Auto) 0.2 (0.0-0.4) X10*3/uL Baso # (Auto) 0.1 (0.0-0.2) X10*3/uL Abs Immat Gran (auto) 0.01 (0.00-0.03) X10*3/uL Absolute Neuts (auto) 3.4 (2.0-8.3) x10*3/uL Absolute Nucleated RBC 0.000 (0.0-0.012) X10*3/uL Nucleated RBC % (auto) 0.0 (0.0-0.2) /100WBC PT 30.5 H (9.9-13.0) SEC INR 2.6 H (0.9-1.1) Sodium (135-145) mmol/L Potassium (3.3-5.1) mmol/L Chloride (96-108) mmol/L Carbon Dioxide (22-29) mmol/L Anion Gap (12-20) BUN (9-16) mg/dL Creatinine (0.5-1.4) mg/dL Estim Creat Clear Calc Estimated GFR Random Glucose (60-115) mg/dL Calcium (8.4-10.2) mg/dL Magnesium (1.6-2.6) mg/dL Total Bilirubin (0.0-1.0) mg/dL Direct Bilirubin (0.0-0.5) mg/dL AST (5-37) U/L ALT (0-40) U/L Alkaline Phosphatase (39-117) U/L Troponin I High Sens (<3.5-35.0) ng/L B-Natriuretic Peptide (<100) pg/mL Total Protein (6.5-8.0) g/dL Albumin (3.5-5.0) g/dL Lipase (8-78) U/L COVID-19 ([facility]) Negative (Negative) COVID-19 Clin Com See Note 07/02/21 07/02/21 Range/Units 18:46 18:46 WBC (4.8-10.8) X10*3/uL RBC (4.60-5.80) X10*6/uL Hgb (14.0-18.0) g/dl Hct (42.0-52.0) % MCV (80.0-98.0) fL MCH (27.0-33.0) pg MCHC (31.0-36.0) g/dl RDW (11.0-16.0) % Plt Count (160-400) X10*3/uL MPV (9.4-12.4) fL Immature Gran % (Auto) (0.0-0.4) % Neut % (Auto) (45-73) % Lymph % (Auto) (20-40) % [place] % (Auto) (2-11) % Eos % (Auto) (0-4) % Baso % (Auto) (0-2) % Lymph # (Auto) (1.2-4.9) X10*3/uL [place] # (Auto) (0.1-1.2) X10*3/uL Eos # (Auto) (0.0-0.4) X10*3/uL Baso # (Auto) (0.0-0.2) X10*3/uL Abs Immat Gran (auto) (0.00-0.03) X10*3/uL Absolute Neuts (auto) (2.0-8.3) x10*3/uL Absolute Nucleated RBC (0.0-0.012) X10*3/uL Nucleated RBC % (auto) (0.0-0.2) /100WBC PT (9.9-13.0) SEC INR (0.9-1.1) Sodium 144 (135-145) mmol/L Potassium 4.0 (3.3-5.1) mmol/L Chloride 114 H (96-108) mmol/L Carbon Dioxide 20 L (22-29) mmol/L Anion Gap 14 (12-20) BUN 29 H (9-16) mg/dL Creatinine 1.68 H (0.5-1.4) mg/dL Estim Creat Clear Calc 50.5 Estimated GFR 42 Random Glucose 111 (60-115) mg/dL Calcium 8.5 D (8.4-10.2) mg/dL Magnesium 1.7 (1.6-2.6) mg/dL Total Bilirubin 1.3 H (0.0-1.0) mg/dL Direct Bilirubin 0.5 (0.0-0.5) mg/dL AST 10 D (5-37) U/L ALT 13 (0-40) U/L Alkaline Phosphatase 112 D (39-117) U/L Troponin I High Sens 51.4 H (<3.5-35.0) ng/L B-Natriuretic Peptide 2067 H (<100) pg/mL Total Protein 6.0 L (6.5-8.0) g/dL Albumin 3.5 (3.5-5.0) g/dL Lipase 26 (8-78) U/L COVID-19 ([facility]) (Negative) COVID-19 Clin Com Imaging Data Chest x-ray: Radiologist's impression: Again seen is cardiomegaly and a single lead left chest wall defibrillator lung volumes are low. No infiltrates, effusions or lung masses are seen.. XR/XR chest 1V IMPRESSION: No acute intrathoracic disease. No significant interval change when compared to the prior study. ? Critical Care Time Critical Care Time Critical Care Time: Yes Total Critical Care Time: 50 Attestation: 50 minutes were spent in direct patient care, stabilization Discharge Plan Discharge Clinical Impression: CHF (congestive heart failure), Atrial fibrillation, new onset Patient Disposition: Admitted As Inpatient
--- NOTE | 2021-07-02 18:35 | PC.NURSE ---
At 1815 Pt stuck 2 times by this RN for IV and lab work. unable to obtain IV access and lab work. Tech attempting lab work at this time.
[2021-07-02 18:42] LABS: COVID-19 Test Negative (Negative)
[2021-07-02 18:50] LABS: MANUAL DIFF FLAG NO
[2021-07-02 18:51] LABS: Basophils Absolute Auto 0.1 X10*3/uL (0.0-0.2); Eosinophils Absolute Auto 0.2 X10*3/uL (0.0-0.4); Eosinophils Percent Auto 4.1 % (0-4); Hematocrit 33.8 % (42.0-52.0); Hemoglobin 11.2 g/dl (14.0-18.0); Imm Gran Abs Auto 0.01 X10*3/uL (0.00-0.03); Imm Gran Pct Auto 0.2 % (0.0-0.4); Lymphocytes Absolute Auto 1.5 X10*3/uL (1.2-4.9); Lymphocytes Percent Auto 26.3 % (20-40); Mean Corpuscular HGB Conc 33.1 g/dl (31.0-36.0); Mean Corpuscular Hemoglobin 30.7 pg (27.0-33.0); Mean Corpuscular Volume 92.6 fL (80.0-98.0); Mean Platelet Volume 10.8 fL (9.4-12.4); Monocytes Absolute Auto 0.6 X10*3/uL (0.1-1.2); Monocytes Percent Auto 10.8 % (2-11); Neutrophils Absolute Auto 3.4 x10*3/uL (2.0-8.3); Neutrophils Percent Auto 57.6 % (45-73); Platelet Count 282 X10*3/uL (160-400); Red Blood Count 3.65 X10*6/uL (4.60-5.80); Red Cell Distribution Width 14.8 % (11.0-16.0); White Blood Count 5.9 X10*3/uL (4.8-10.8)
[2021-07-02 18:57] LABS: INTERNATIONAL NORM RATIO 2.6 (0.9-1.1); Prothrombin Time 30.5 SEC (9.9-13.0)
[2021-07-02 19:15] LABS: B Type Natriuretic Peptide 2067 pg/mL (<100); Troponin-I High Sensitivity 51.4 ng/L (<3.5-35.0)
[2021-07-02 19:17] LABS: Alanine Aminotransferase 13 U/L (0-40); Albumin Level 3.5 g/dL (3.5-5.0); Alkaline Phosphatase 112 U/L (39-117); Anion Gap 14 (12-20); Aspartate Amino Transferase 10 U/L (5-37); Bilirubin Direct 0.5 mg/dL (0.0-0.5); Bilirubin Total 1.3 mg/dL (0.0-1.0); Blood Urea Nitrogen 29 mg/dL (9-16); Calcium 8.5 mg/dL (8.4-10.2); Carbon Dioxide 20 mmol/L (22-29); Chloride 114 mmol/L (96-108); Creatinine Clr Calc Pharmacy 50.5; Estimated Glomerular Filt Rate 42; Glucose Random 111 mg/dL (60-115); Lipase 26 U/L (8-78); Magnesium 1.7 mg/dL (1.6-2.6); Sodium 144 mmol/L (135-145)
[2021-07-02 19:31] VITALS: BP 138/99; PULSE 117; RESP 25; O2SAT 98
[2021-07-02] MEDS: Furosemide 40 MG/4 ML VIAL IVPUSH (19:33)
--- NOTE | 2021-07-02 19:42 | ECG_ITS ---
Test Reason : REPEAT Blood Pressure : / mmHG Vent. Rate : 096 BPM Atrial Rate : 000 BPM P-R Int : 000 ms QRS Dur : 126 ms QT Int : 368 ms P-R-T Axes : 000 -19 145 degrees QTc Int : 464 ms Atrial fibrillation with premature ventricular or aberrantly conducted complexes Non-specific intra-ventricular conduction block Cannot rule out Septal infarct (cited on or before 02-JUL-2021) T wave abnormality, consider lateral ischemia Abnormal ECG When compared with ECG of 02-JUL-2021 18:24, No significant changes seen Referred By: Shaina Howell Electronically Signed By:KAILYN MUHAMMAD MD
[2021-07-02 19:47] VITALS: BP 133/102; PULSE 112; RESP 22; O2SAT 99
[2021-07-02] MEDS: dilTIAZem HCL 50 MG/10 ML VIAL 20 MG IVPUSH (19:57)
--- NOTE | 2021-07-02 20:37 | PHA.MEDREC ---
Pharmacy Consult ? Medication Reconciliation Pharmacy has completed the medication reconciliation. BASED ON RECENT REHAB DISCHARGE. MOST CONFIRMED ON [facility] LIST
[2021-07-02 21:16] VITALS: BP 153/103; PULSE 87; RESP 20; O2SAT 98
--- NOTE | 2021-07-02 21:20 | PC.NURSE ---
hospitalist notified of BP. no new orders at this time
[2021-07-02 21:50] VITALS: BP 148/107; PULSE 108; RESP 22; O2SAT 99
--- NOTE | 2021-07-02 22:19 | P.HPHOSP_ITS ---
History of Present Illness Date of Service: 07/02/21 Chief Complaint: SOB Mainly French speaking, history is obtained with the help of applied statistician 60-year-old male with past medical history of CVA x2, nonischemic cardiomyopathy status post AICD placement, CKD stage 2, hypertension, who presents to the hospital with complaints of shortness of breath as well as lower extremity edema. Patient was discharged from the rehab about 2 weeks ago for rehabilitation for his 2nd CVA that he had in March. patient has residual right-sided weakness as well as aphasia as a result of his CVA and therefore his partner at bedside Who is also his caregiver tells me most of his history. Patient and his partner report that he has been experiencing shortness of breath, no cough or sputum production, he has had palpitations with no chest pain, no nausea or vomiting, no fever or chills, no diarrhea constipation, no urinary symptoms. He has had lower extremity edema for the past week Progressively worsening. Orthopnea and PND. Increased work of breathing on minimal activity. Denies any urinary symptoms. On arrival to the ED patient vitals significant for temp of 97.6 degrees, heart rate of 1 5, respiratory rate of 26, blood pressure of 1.3/114, satting 99% on room air. Patient heart rate did not increase to 110s to 130s, found to being AFib with RVR. On asking further from the patient and his partner at bedside they report the patient has never been told to have AFib and he is on Eliquis for his history of CVA. labs are significant for WBC count of 5.9, hemoglobin of 11.2, hematocrit 38.8, INR of 2.6, creatinine of 1.68 which is around his baseline, total bili of 1.3, initial troponin of 51.4, decreased to 49.3, BNP of 2067, chest x-ray shows no acute intrathoracic disease. patient and his partner reports that he used to be on a water pill but they are not sure why it was discontinued or by who And that he is currently not taking any Lasix Or any other diuretic. patient given IV Lasix, Placed on BiPAP for increased work of breathing while in the ED but will be admitted to the floor for further management given improvement in his respiratory rate. Review of Systems Review of Systems: Yes all other systems are reviewed and are negative PMFSH Medical History Cardiac defibrillator in place CHF (congestive heart failure) Chronic systolic heart failure CKD (chronic kidney disease), stage II Embolism of kidney Gallstones Hypertension NICM (nonischemic cardiomyopathy) NSVT (nonsustained ventricular tachycardia) Renal infarct Family History Other CAD (coronary artery disease) Surgical History History of cardiac defibrillator placement Social History Household Members: Family Housing: Apartment Do you presently have visiting nurse or other home services: No Alcohol intake: never Patient Tobacco Use Status: Never used Tobacco Advance Directives: Yes Advance Directives on File: Yes Advance Directives Date on File: 10/18/20 service: Yes Current occupational status: employed Meds Allergies Allergy/AdvReac Type Severity Reaction Status Date / Time No Known Allergies Allergy Verified 03/29/21 15:06 [No Known Allergies*] Home Medications Medication Instructions Recorded Confirmed Last Taken Type apixaban 5 mg tablet (Eliquis) 5 mg PO BID 07/02/21 07/02/21 Unknown History atorvastatin 80 mg tablet 80 mg PO BEDTIME 07/02/21 07/02/21 Unknown History carvedilol 6.25 mg tablet 6.25 mg PO BID 07/02/21 07/02/21 Unknown History citalopram 10 mg tablet 10 mg PO DAILY 07/02/21 07/02/21 Unknown History famotidine 20 mg tablet 20 mg PO DAILY 07/02/21 07/02/21 Unknown History lisinopril 5 mg tablet 5 mg PO DAILY 07/02/21 07/02/21 Unknown History mirtazapine 7.5 mg tablet 7.5 mg PO DAILY 07/02/21 07/02/21 Unknown History Physical Exam Vital Signs and Narrative: Vital Signs: Last Vital Signs Temp 97.6 F 07/02/21 17:59 Pulse 108 H 07/02/21 21:50 Resp 22 H 07/02/21 21:50 BP 148/107 H 07/02/21 21:50 Pulse Ox 99 07/02/21 21:50 Oxygen Flow Rate 4 07/02/21 17:59 BMI result Body Mass Index 33.4 Const: General: cooperative and no acute distress Orientation/consciousn ess: patient oriented x3 Eyes: General: appearance normal, both eyes and all related structures Pupils: Equal, round and reactive pupils present Resp: Other: tachypneic, bilateral crackles Cardio: Other: Tachycardic, regular rhythm GI: Palpation (GI): Soft to palpation Auscultation: normal bowel sounds Skin: General skin exam: no rashes or lesions noted Neuro: Other: 2/5 strength in the right side, aphasia General: patient oriented x3 Cranial nerves: Yes Equal, round and reactive pupils present Cognition (Neuro): normal cognition Extrem: Other: 1+ pitting edema bilaterally General: Yes normal to inspection Results Labs CBC and Chem 7: 07/02/21 18:46 07/02/21 18:46 Labs: Laboratory Results - last 24 hr 07/02/21 07/02/21 07/02/21 18:23 18:46 18:46 MCV 92.6 MCH 30.7 MCHC 33.1 RDW 14.8 Plt Count 282 MPV 10.8 Immature Gran % (Auto) 0.2 Neut % (Auto) 57.6 Lymph % (Auto) 26.3 [place] % (Auto) 10.8 Eos % (Auto) 4.1 H Baso % (Auto) 1.0 Lymph # (Auto) 1.5 [place] # (Auto) 0.6 Eos # (Auto) 0.2 Baso # (Auto) 0.1 Abs Immat Gran (auto) 0.01 Absolute Neuts (auto) 3.4 Absolute Nucleated RBC 0.000 Nucleated RBC % (auto) 0.0 PT 30.5 H INR 2.6 H Anion Gap Estim Creat Clear Calc Estimated GFR Random Glucose Calcium Magnesium Total Bilirubin Direct Bilirubin AST ALT Alkaline Phosphatase B-Natriuretic Peptide Total Protein Albumin Lipase COVID-19 ([facility]) Negative COVID-19 Clin Com See Note 07/02/21 07/02/21 18:46 18:46 MCV MCH MCHC RDW Plt Count MPV Immature Gran % (Auto) Neut % (Auto) Lymph % (Auto) [place] % (Auto) Eos % (Auto) Baso % (Auto) Lymph # (Auto) [place] # (Auto) Eos # (Auto) Baso # (Auto) Abs Immat Gran (auto) Absolute Neuts (auto) Absolute Nucleated RBC Nucleated RBC % (auto) PT INR Anion Gap 14 Estim Creat Clear Calc 50.5 Estimated GFR 42 Random Glucose 111 Calcium 8.5 D Magnesium 1.7 Total Bilirubin 1.3 H Direct Bilirubin 0.5 AST 10 D ALT 13 Alkaline Phosphatase 112 D B-Natriuretic Peptide 2067 H Total Protein 6.0 L Albumin 3.5 Lipase 26 COVID-19 ([facility]) COVID-19 Clin Com Imaging Radiologist's Impressions: Impressions Chest X-Ray 07/02/21 18:56 IMPRESSION: No acute intrathoracic disease. No significant interval change when compared to the prior study. Assessment and Plan (1) Acute exacerbation of CHF (congestive heart failure): Status: Acute (2) Atrial fibrillation, new onset: Status: Acute Plan this is a 60-year-old male with past medical history of nonischemic cardiomyopathy status post AICD placement, CVA who presents to the hospital with complaints of shortness of breath as well as lower extremity edema found to be in CHF exacerbation # acute CHF exacerbation - likely in the setting new onset AFib as well as inadequate diuresis - needed BiPAP for few hours while in the ED with improvement in his respiratory status as well as work of breathing - presented with dyspnea, orthopnea, PND, lower extremity edema - has elevated BNP - will start on Lasix 40 IV b.i.d. strict I&O, daily weight, low-sodium diet - consult cardiology - order echocardiogram # new onset AFib - denies history - on Eliquis for history of CVA - chads Vasc score 4 - already on Eliquis, and carvedilol which will continue both - received IV diltiazem pushesx2 with improvement in his heart rate - EKG shows AFib with no ST T-wave changes, - slightly elevated troponin with no delta - echo, cardiology consult # elevated troponin - likely type 2 in the setting of CHF as well as new onset AFib - no delta - monitor on telemetry # history of CVA - no new neurological deficits - continue Eliquis # hypertension - stable - continue carvedilol as well as lisinopril # CKD - baseline - follow BMP DVT prophylaxis: Eliquis Quality Stroke Does the patient have a stroke diagnosis?: No VTE Prior VTE?: No VTE Risk Level:: Medical - moderate - high VTE Device Contraindication: Treatment Not Indicated VTE Drug Contraindication: N/A - Med Ordered
[2021-07-02 23:13] VITALS: BP 141/103; PULSE 99; RESP 20; O2SAT 99
[2021-07-02] MEDS: Apixaban 5 MG TABLET PO (23:40)
[2021-07-02] MEDS: Atorvastatin Calcium 80 MG TABLET PO (23:40)
[2021-07-02] MEDS: carvediloL 6.25 MG TABLET PO (23:40)
[2021-07-03] VITALS (10 sets, daily range): BP systolic 134–183; BP diastolic 84–106; PULSE 64–120; RESP 12–36; TEMP 36.3–36.6; O2SAT 94–100
[2021-07-03] MEDS: dilTIAZem HCL 50 MG/10 ML VIAL 10 MG IVPUSH (01:30)
--- NOTE | 2021-07-03 01:30 | PC.NURSE ---
pt HR jumping between 100-120 Respirations 30, increased work of breathing noted. Hospitalist on ED floor. notified of pt change in vitals. verbal order for 40mg Lasix IVP, 10mg Diltiazem IVP. per hospitalist, pt to be put on bipap to decrease work of breathing. RT paged to bedside
[2021-07-03] MEDS: Furosemide 40 MG/4 ML VIAL IVPUSH ×2 (01:33→10:02)
[2021-07-03 03:03] LABS: Troponin-I High Sensitivity 49.3 ng/L (<3.5-35.0)
--- NOTE | 2021-07-03 04:12 | PC.NURSE ---
pt incontinent of urine. pt cleaned up by this RN and vasc techjosiah Antony. bed linens changed, pt provided with fresh hospital gown and warm blankets. call reid in reach.
--- NOTE | 2021-07-03 05:02 | PC.NURSE ---
BP 149/103 Hospitalist notified
[2021-07-03 07:09] LABS: MANUAL DIFF FLAG NO
[2021-07-03 07:12] LABS: Basophils Percent Auto 0.6 % (0-2); Eosinophils Absolute Auto 0.3 X10*3/uL (0.0-0.4); Eosinophils Percent Auto 4.6 % (0-4); Hematocrit 32.1 % (42.0-52.0); Hemoglobin 10.7 g/dl (14.0-18.0); Imm Gran Abs Auto 0.03 X10*3/uL (0.00-0.03); Imm Gran Pct Auto 0.5 % (0.0-0.4); Lymphocytes Absolute Auto 1.5 X10*3/uL (1.2-4.9); Lymphocytes Percent Auto 24.3 % (20-40); Mean Corpuscular HGB Conc 33.3 g/dl (31.0-36.0); Mean Corpuscular Hemoglobin 29.9 pg (27.0-33.0); Mean Corpuscular Volume 89.7 fL (80.0-98.0); Mean Platelet Volume 11.2 fL (9.4-12.4); Monocytes Absolute Auto 0.7 X10*3/uL (0.1-1.2); Monocytes Percent Auto 11.7 % (2-11); Neutrophils Absolute Auto 3.7 x10*3/uL (2.0-8.3); Neutrophils Percent Auto 58.3 % (45-73); Platelet Count 285 X10*3/uL (160-400); Red Blood Count 3.58 X10*6/uL (4.60-5.80); Red Cell Distribution Width 14.7 % (11.0-16.0); White Blood Count 6.3 X10*3/uL (4.8-10.8)
[2021-07-03 07:27] LABS: Anion Gap 15 (12-20); Blood Urea Nitrogen 31 mg/dL (9-16); Calcium 8.7 mg/dL (8.4-10.2); Carbon Dioxide 24 mmol/L (22-29); Chloride 110 mmol/L (96-108); Creatinine Clr Calc Pharmacy 48.2; Estimated Glomerular Filt Rate 39; Glucose Random 106 mg/dL (60-115); Potassium 3.6 mmol/L (3.3-5.1); Sodium 145 mmol/L (135-145)
--- NOTE | 2021-07-03 08:59 | HO.PM.IMPN ---
Subjective Subjective Date of Service: 07/03/21 Interval History: cc: sob interval history:some improvement, but still sob, stil with le edema Cardiovascular Cardiovascular: Reports no additional cardiovascular complaints Gastrointestinal Gastrointestinal: Reports no additional gastrointestinal complaints Physical Exam Vital Signs: Vital Signs: Last Vital Signs Temp 98 F 07/03/21 00:05 Pulse 72 07/03/21 04:49 Resp 20 07/03/21 04:49 BP 149/103 H 07/03/21 04:49 Pulse Ox 99 07/03/21 04:49 Oxygen Flow Rate 4 07/02/21 17:59 BMI result Body Mass Index 33.4 General: AO X 3, sitting at edge of bed, appears mildly dyspneic Resp: Crackles bilateral, mild accessory muscles used CVS: S1,S2,RRR, le edema bilateral 2-3+ GI: soft, non tender, non distended Neuro: motor grossly intact, alert Psych: appropriate affect, appropriate insight Objective Data Active Medications Acetaminophen (Acetaminophen 325 Mg Tablet) 650 mg PO Q6H PRN PRN Reason: Pain, Mild (Pain Scale 1-3) Apixaban (Apixaban 5 Mg Tablet) 5 mg PO BID [facility] Last Admin: 07/02/21 23:40 Dose: 5 mg Documented by: ADALBERTO Atorvastatin Calcium (Atorvastatin Calcium 80 Mg Tablet) 80 mg PO BEDTIME [facility] Last Admin: 07/02/21 23:40 Dose: 80 mg Documented by: ADALBERTO Carvedilol (Carvedilol 6.25 Mg Tablet) 6.25 mg PO BID [facility]; Protocol Last Admin: 07/02/21 23:40 Dose: 6.25 mg Documented by: ADALBERTO Docusate Sodium (Docusate Sodium 100 Mg Capsule) 100 mg PO DAILY PRN PRN Reason: Constipation Escitalopram Oxalate (Escitalopram Oxalate 5 Mg Tablet) 5 mg PO DAILY [facility] Famotidine (Famotidine 20 Mg Tablet) 20 mg PO DAILY [facility] Furosemide (Furosemide 40 Mg/4 Ml Vial) 40 mg IVPUSH Q12H [facility]; Protocol Lisinopril (Lisinopril 5 Mg Tablet) 5 mg PO DAILY [facility]; Protocol Mirtazapine (Mirtazapine 7.5 Mg Tablet) 7.5 mg PO BEDTIME [facility] Ondansetron HCl (Ondansetron Hcl 4 Mg/2 Ml Vial) 4 mg IVPUSH Q8H PRN PRN Reason: Nausea and Vomiting Sodium Chloride (0.9 % Sodium Chloride Flush 3 Ml Syringe) 3 ml IVFLUSH QSHIFT [facility] Last Admin: 07/03/21 00:25 Dose: Not Given Documented by: ADALBERTO Non-Admin Reason: Med Not Available Labs CBC & Chem 7: 07/03/21 06:44 07/03/21 06:44 Labs: Laboratory Results - last 24 hr 07/02/21 07/02/21 07/02/21 18:23 18:46 18:46 MCV 92.6 MCH 30.7 MCHC 33.1 RDW 14.8 Plt Count 282 MPV 10.8 Immature Gran % (Auto) 0.2 Neut % (Auto) 57.6 Lymph % (Auto) 26.3 Arroyo % (Auto) 10.8 Eos % (Auto) 4.1 H Baso % (Auto) 1.0 Lymph # (Auto) 1.5 Arroyo # (Auto) 0.6 Eos # (Auto) 0.2 Baso # (Auto) 0.1 Abs Immat Gran (auto) 0.01 Absolute Neuts (auto) 3.4 Absolute Nucleated RBC 0.000 Nucleated RBC % (auto) 0.0 PT 30.5 H INR 2.6 H Anion Gap Estim Creat Clear Calc Estimated GFR Random Glucose Calcium Magnesium Total Bilirubin Direct Bilirubin AST ALT Alkaline Phosphatase B-Natriuretic Peptide Total Protein Albumin Lipase COVID-19 ([facility]) Negative COVID-19 Clin Com See Note 07/02/21 07/02/21 07/03/21 18:46 18:46 06:44 MCV 89.7 MCH 29.9 MCHC 33.3 RDW 14.7 Plt Count 285 MPV 11.2 Immature Gran % (Auto) 0.5 H Neut % (Auto) 58.3 Lymph % (Auto) 24.3 Arroyo % (Auto) 11.7 H Eos % (Auto) 4.6 H Baso % (Auto) 0.6 Lymph # (Auto) 1.5 Arroyo # (Auto) 0.7 Eos # (Auto) 0.3 Baso # (Auto) 0.0 Abs Immat Gran (auto) 0.03 Absolute Neuts (auto) 3.7 Absolute Nucleated RBC 0.000 Nucleated RBC % (auto) 0.0 PT INR Anion Gap 14 Estim Creat Clear Calc 50.5 Estimated GFR 42 Random Glucose 111 Calcium 8.5 D Magnesium 1.7 Total Bilirubin 1.3 H Direct Bilirubin 0.5 AST 10 D ALT 13 Alkaline Phosphatase 112 D B-Natriuretic Peptide 2067 H Total Protein 6.0 L Albumin 3.5 Lipase 26 COVID-19 ([facility]) COVID-19 Clin Com 07/03/21 06:44 MCV MCH MCHC RDW Plt Count MPV Immature Gran % (Auto) Neut % (Auto) Lymph % (Auto) Arroyo % (Auto) Eos % (Auto) Baso % (Auto) Lymph # (Auto) Arroyo # (Auto) Eos # (Auto) Baso # (Auto) Abs Immat Gran (auto) Absolute Neuts (auto) Absolute Nucleated RBC Nucleated RBC % (auto) PT INR Anion Gap 15 Estim Creat Clear Calc 48.2 Estimated GFR 39 Random Glucose 106 Calcium 8.7 Magnesium Total Bilirubin Direct Bilirubin AST ALT Alkaline Phosphatase B-Natriuretic Peptide Total Protein Albumin Lipase COVID-19 ([facility]) COVID-19 Clin Com Assessment and Plan (1) Acute exacerbation of CHF (congestive heart failure): Status: Acute Plan 60M presented with sob acute on chronic systolic chf (non ischemic) iv lasix, monitor labs cardio eval continue carvedilol, lisinopril s/p aicd persistent atrial fibrillation with rvr (not new onset) eliquis carvedilol follow up cardio history of cva eliquis statin CKD III stable, montior HTN lisinopril coreg dvt prophylaxis - eliquis full rox reason for continued hospitalization: still with sob and le edema requiring iv diuresis. Quality Stroke Does the patient have a stroke diagnosis?: No VTE Prior VTE?: No VTE Risk Level:: Medical - moderate - high VTE Device Contraindication: Treatment Not Indicated VTE Drug Contraindication: N/A - Med Ordered
--- NOTE | 2021-07-03 09:14 | PC.NURSE ---
report given to med/rn surgery
[2021-07-03] MEDS: Famotidine 20 MG TABLET PO (10:02)
[2021-07-03] MEDS: Apixaban 5 MG TABLET PO ×2 (10:02→19:44)
[2021-07-03] MEDS: lisinopriL 5 MG TABLET PO (10:02)
[2021-07-03] MEDS: carvediloL 6.25 MG TABLET PO ×2 (10:02→19:44)
[2021-07-03] MEDS: Escitalopram Oxalate 5 MG TABLET PO (10:02)
[2021-07-03] MEDS: 0.9 % Sodium Chloride Flush 3 ML SYRINGE IVFLUSH (10:03)
--- NOTE | 2021-07-03 11:30 | CA_ITS ---
Transthoracic Echocardiogram Patient (Last, First, Middle): Donny Costa Luis Gender: Male Date of : 1960 Age: 60 Procedure Date: 07/03/2021 Procedure Type: Transthoracic Echocardiogram Location: S3W Height: 170.18 cm Weight: 96.62 kg BSA: 2.08 m2 Heart Rate: bpm BP: 149 / 103 mmHg Dried Fruit Washer: Referring MD: Behzad Bro MD Boat Cleaner: Naeem Haque MD Symptoms: CHF Study Quality: Fair ECG Rhythm: Atrial Fibrillation Conclusions: - 1. Severely dilated left ventricle with severe LV systolic dysfunction with LVEF of 15-20% with elevated filling pressures 2. Mildly dilated right ventricle with reduced systolic function 3. Severely dilated left atrium 4. At least moderate mitral regurgitation and mild aortic regurgitation 5. [id number] elevation of right ventricular systolic pressure with significant elevated right atrial pressures 6. Mildly dilated ascending aorta 7. Trivial pericardial effusion Findings Left Ventricle Severely increased left ventricular cavity size. There is mildly increased left ventricular wall thickness. The left ventricular systolic function is severely decreased. The visually estimated ejection fraction is between 15 20%. Diastolic function is indeterminate on the basis of available data. Elevated filling pressures. Right Ventricle Mildly increased right ventricular cavity size. There is mild to moderately decreased right ventricular systolic function. There is an ICD wire seen in the right ventricle. Atria The left atrium is severely dilated. There is no evidence of interatrial shunt. The right atrium is mildly dilated. Aortic Valve Normal aortic valve structure and function. There is no aortic valve stenosis. There is trace (trivial) aortic valve regurgitation. Mitral Valve There is mild anterior and posterior mitral leaflet thickening. There is moderate mitral valve regurgitation. There is severe mitral annular dilatation. Pulmonic Valve The pulmonic valve was not well visualized. There is mild pulmonic valve regurgitation. Tricuspid Valve Normal tricuspid valve structure. There is mild tricuspid valve regurgitation. Significantly elevated right atrial pressure. Mild to moderate pulmonary hypertension is present. Great Vessels The pulmonary artery was not well visualized. There is mild dilatation of the ascending aorta measuring 4.00 cm. Venous The inferior vena cava is moderately dilated and does not collapse with inspiration. Pericardium/Pleural There is a trivial pericardial effusion. Prior Study Comparison Changes noted compared to prior study dated: 05/07/2019. Moderate MR is noted. LV is dilated and systolic function is reduced. Measurements 2D Linear Measurements IVSd: 1.27 0.6-0.9/0.6-1.0 cm LVIDd: 6.75 3.9-5.3/4.2-5.9 cm LVIDd Index: 3.25 2.4-3.2/2.2-3.1 cm/m2 LVIDs: 5.93 2.0-3.6 cm LVPWd: 1.21 0.7-1.1 cm LA Diam: 5.20 2.7-3.8/3.0-4.0 cm LAIDs Index: 2.50 1.5-2.3 cm/m2 LV Mass: 497.93 67-162/88-224 g LV Mass Index: 239.39 43-95/49-115 g/m2 LVOT Diam: 2.20 3.0+(-)1.3 cm Mitral Valve MV Pk E: 0.86 MV Decel Time: 225.00 E'Lateral: 4.79 E'Medial: 3.70 E/E' Med: 23.30 E/E' Lat: 18.00 PHT: 66.00 MVA PHT: 3.33 Decel Tama: 3.82 MR Vol - PW Dopp: 40.50 MR VTI: 1.62 MR ERO: 25.00 MR Alias Adán: 0.31 MR RAD: 0.80 Aortic Valve AoV Pk Adán: 0.84 AoV Mn Adán: 0.66 AoV VTI: 0.14 AoV Pk Grad: 3.00 Aov Mn Grad: 2.00 DIESY Cont.VTI: 2.11 LVOT LVOT Pk Adán: 0.54 LVOT Mn Adán: 0.35 LVOT VTI: 0.08 LVOT Pk Grad: 1.00 LVOT Mn Grad: 1.00 LVOT Diam: 2.20 LVOT Area: 3.80 Diastolic Function MV Pk E: 0.86 E'Medial: 3.70 E/E' Med: 23.30 E' Laterial: 4.79 E/E' Lat: 18.00 Right Ventricle TAPSE (mm): 12.40 TVS' Adán: 8.92 Tricuspid Valve TR Pk Adán: 2.73 TR Pk Grad: 30.00 RA Press: 15.00 RVSP: 45.00 Great Vessels Aorta Sinus of Valsalva: 3.52 2.0-3.5 cm Ao Asc: 4.00 2.1-3.4 cm Pulmonary Valve PV Pk Adán: 0.63 Peak PV Grad: 2.00 Updated in Other Vendor System with Status of Final Naeem Haque MD electronically signed on 07/03/2021 4:40:15 PM with status of Final
--- NOTE | 2021-07-03 12:17 | MHC.CM.PN ---
THIS CM RECEIVED MESSAGE FROM [facility] REPORTING PT IS CURRENTLY ACTIVE WITH THEIR SERVICE, REFERRAL PLACED IN [facility].
--- NOTE | 2021-07-03 12:25 | P.CONCA_ITS ---
History of Present Illness History of Present Illness Date of Service: 07/03/21 Requesting physician: Juan De Guzman Consult reason: atrial fibrillation Chief complaint: SOB X'S 2 WEEKS,88% RA,96% 2LPM PER EMS Narrative: I was consulted to see Donny in cardiology consultation today for worsening shortness of breath with respiratory failure and atrial fibrillation. History was obtained with help of aco coordinator with patient's girlfriend at the bedside. As per the goal from patient was discharged home 2 weeks ago from [facility] after admission with a stroke in March. As per the girlfriend he had 2 strokes, which caused aphasia and weakness. He was then [facility]. Was discharged back to home 2 weeks ago and about a week ago he started having increasing shortness of breath, generalized swelling and orthopnea. Patient is a very difficult historian. He denies any symptoms of palpitation with chest discomfort. Complains of pain generally. He denies any lightheadedness, syncope. No ICD discharge. He has prior history of severe nonischemic cardiomyopathy with LVEF of 10-15%, no recent echocardiogram in the system. Recent remote monitoring as shown persistent atrial fibrillation with the last month or 2 by remote check. He is on Eliquis 5 mg b.i.d., however as per the patient and patient's goal friend there were not aware that he had atrial fibrillation. He is currently on carvedilol low-dose on lisinopril low- dose for unclear reason. He also not discharged home on any diuretic regimen for unclear reason. On presentation was noted to be hypoxic, has been given IV Lasix x1 does, negative balance listed about 700 cc. Patient remained short of breath. Remains hypertensive. Currently on again carvedilol and lisinopril. Review of Systems Review of Systems: Yes Unobtainable due to mental condition Constitutional: Constitutional: Reports no additional constitutional complaints and Reports fatigue Eyes: Eyes: Reports no additional eye complaints Cardiovascular: Cardiovascular: Reports Abdominal Distension, Denies chest pain, Reports rapid heart rate, Reports edema, Reports leg edema, Denies lightheadedness, Denies Loss of Consciousness, Denies palpitations, Reports dyspnea and Reports orthopnea Respiratory: Respiratory: Reports no additional respiratory complaints and Reports dyspnea Gastrointestinal: Gastrointestinal: Reports no additional gastrointestinal complaints Genitourinary: Genitourinary: Reports no additional male genitourinary complaints Musculoskeletal: Musculoskeletal: Reports no additional musculoskeletal complaints Integumentary/Breasts: Skin/Breast: Reports system reviewed and no additional complaints, except as docu Neurologic: Reports system reviewed and no additional complaints, except as documented Psychiatric: Psychiatric: Reports no additional psychiatric complaints Endocrine: Endocrine: Reports no additional endocrine complaints, Reports fatigue and Denies palpitations Hematologic/Lymphatic: Hematologic/Lymphatic: Reports no additional hematologic/lymphatic complaints Allergic/Immunologic: Allergic/Immunologic: Reports no additional allergic/immunologic complaints [facility] Past Medical History Medical History (Updated 07/03/21 @ 12:32 by Naeem Haque MD) Cardiac defibrillator in place CHF (congestive heart failure) Chronic systolic heart failure CKD (chronic kidney disease), stage II Embolism of kidney Gallstones Hypertension NICM (nonischemic cardiomyopathy) NSVT (nonsustained ventricular tachycardia) Persistent atrial fibrillation Renal infarct Family History Family History Other CAD (coronary artery disease) Surgical History Surgical History History of cardiac defibrillator placement Social History Social History Household Members: Spouse Housing: House Do you presently have visiting nurse or other home services: No Alcohol intake: never Patient Tobacco Use Status: Never used Tobacco Advance Directives Date on File: 10/18/20 service: Yes Current occupational status: employed Meds Allergies Allergy/AdvReac Type Severity Reaction Status Date / Time No Known Allergies Allergy Verified 07/03/21 10:58 [No Known Allergies*] Active Medications: Current Medications Acetaminophen (Acetaminophen 325 Mg Tablet) 650 mg PO Q6H PRN PRN Reason: Pain, Mild (Pain Scale 1-3) Apixaban (Apixaban 5 Mg Tablet) 5 mg PO BID [facility] Last Admin: 07/03/21 10:02 Dose: 5 mg Documented by: Atorvastatin Calcium (Atorvastatin Calcium 80 Mg Tablet) 80 mg PO BEDTIME NENA Last Admin: 07/02/21 23:40 Dose: 80 mg Documented by: Carvedilol (Carvedilol 6.25 Mg Tablet) 6.25 mg PO BID [facility]; Protocol Last Admin: 07/03/21 10:02 Dose: 6.25 mg Documented by: Docusate Sodium (Docusate Sodium 100 Mg Capsule) 100 mg PO DAILY PRN PRN Reason: Constipation Escitalopram Oxalate (Escitalopram Oxalate 5 Mg Tablet) 5 mg PO DAILY [facility] Last Admin: 07/03/21 10:02 Dose: 5 mg Documented by: Famotidine (Famotidine 20 Mg Tablet) 20 mg PO DAILY [facility] Last Admin: 07/03/21 10:02 Dose: 20 mg Documented by: Furosemide (Furosemide 40 Mg/4 Ml Vial) 40 mg IVPUSH Q12H [facility]; Protocol Last Admin: 07/03/21 10:02 Dose: 40 mg Documented by: Lisinopril (Lisinopril 5 Mg Tablet) 5 mg PO DAILY [facility]; Protocol Last Admin: 07/03/21 10:02 Dose: 5 mg Documented by: Mirtazapine (Mirtazapine 7.5 Mg Tablet) 7.5 mg PO BEDTIME [facility] Ondansetron HCl (Ondansetron Hcl 4 Mg/2 Ml Vial) 4 mg IVPUSH Q8H PRN PRN Reason: Nausea and Vomiting Sodium Chloride (0.9 % Sodium Chloride Flush 3 Ml Syringe) 3 ml IVFLUSH QSHIFT [facility] Last Admin: 07/03/21 10:03 Dose: 3 ml Documented by: Home Medications Medication Instructions Recorded Confirmed Last Taken Type apixaban 5 mg tablet (Eliquis) 5 mg PO BID 07/02/21 07/02/21 Unknown History atorvastatin 80 mg tablet 80 mg PO BEDTIME 07/02/21 07/02/21 Unknown History carvedilol 6.25 mg tablet 6.25 mg PO BID 07/02/21 07/02/21 Unknown History citalopram 10 mg tablet 10 mg PO DAILY 07/02/21 07/02/21 Unknown History famotidine 20 mg tablet 20 mg PO DAILY 07/02/21 07/02/21 Unknown History lisinopril 5 mg tablet 5 mg PO DAILY 07/02/21 07/02/21 Unknown History mirtazapine 7.5 mg tablet 7.5 mg PO DAILY 07/02/21 07/02/21 Unknown History Physical Exam Vital Signs: Vital Signs: Last Vital Signs Temp 97.3 F 07/03/21 09:55 Pulse 85 07/03/21 09:55 Resp 18 07/03/21 09:55 BP 148/106 H 07/03/21 09:55 Pulse Ox 98 07/03/21 09:55 Oxygen Flow Rate 4 07/02/21 17:59 BMI result Body Mass Index 33.4 Const: General: cooperative, alert, awake, in distress moderate and respiratory and ill appearing Nutritional Appearance: obese Orientation/ consciousness: patient oriented x3 HENMT: Head: Yes normocephalic and Yes atraumatic Neck: Neck: Yes trachea midline, Yes supple and Yes JVD Chest: Chest palpation & inspection: normal inspection of the chest Resp: Effort & Inspection: normal respiratory effort and paradoxical thoraco- abdominal movements Auscultation: crackles bilateral at the base Cardio: Jugular venous distension: JVD Palpation: abnormal PMI displaced PMI Rate: tachycardic Rhythm: abnormal rhythm irregularly irregular Hea rt sounds: S1 normal heart sound present, S2 normal heart sound present, no click, no murmurs and no rubs GI: Inspection: Yes distended and Yes obesity Auscultation: normal bowel sounds Skin: General skin exam: no rashes or lesions noted Neuro: General: patient oriented x3 and no focal motor deficits Extrem: General: No clubbing, No cyanosis and Yes edema Objective Labs and Meds Result diagrams: 07/03/21 06:44 07/03/21 06:44 Lab results: Laboratory Results - last 24 hr 07/02/21 07/02/21 07/02/21 18:23 18:46 18:46 WBC 5.9 RBC 3.65 L Hgb 11.2 L Hct 33.8 L MCV 92.6 MCH 30.7 MCHC 33.1 RDW 14.8 Plt Count 282 MPV 10.8 Immature Gran % (Auto) 0.2 Neut % (Auto) 57.6 Lymph % (Auto) 26.3 Edmunds % (Auto) 10.8 Eos % (Auto) 4.1 H Baso % (Auto) 1.0 Lymph # (Auto) 1.5 Edmunds # (Auto) 0.6 Eos # (Auto) 0.2 Baso # (Auto) 0.1 Abs Immat Gran (auto) 0.01 Absolute Neuts (auto) 3.4 Absolute Nucleated RBC 0.000 Nucleated RBC % (auto) 0.0 PT 30.5 H INR 2.6 H Sodium Potassium Chloride Carbon Dioxide Anion Gap BUN Creatinine Estim Creat Clear Calc Estimated GFR Random Glucose Calcium Magnesium Total Bilirubin Direct Bilirubin AST ALT Alkaline Phosphatase Troponin I High Sens B-Natriuretic Peptide Total Protein Albumin Lipase COVID-19 ([facility]) Negative COVID-19 Clin Com See Note 07/02/21 07/02/21 07/03/21 18:46 18:46 02:34 WBC RBC Hgb Hct MCV MCH MCHC RDW Plt Count MPV Immature Gran % (Auto) Neut % (Auto) Lymph % (Auto) Edmunds % (Auto) Eos % (Auto) Baso % (Auto) Lymph # (Auto) Edmunds # (Auto) Eos # (Auto) Baso # (Auto) Abs Immat Gran (auto) Absolute Neuts (auto) Absolute Nucleated RBC Nucleated RBC % (auto) PT INR Sodium 144 Potassium 4.0 Chloride 114 H Carbon Dioxide 20 L Anion Gap 14 BUN 29 H Creatinine 1.68 H Estim Creat Clear Calc 50.5 Estimated GFR 42 Random Glucose 111 Calcium 8.5 D Magnesium 1.7 Total Bilirubin 1.3 H Direct Bilirubin 0.5 AST 10 D ALT 13 Alkaline Phosphatase 112 D Troponin I High Sens 51.4 H 49.3 H B-Natriuretic Peptide 2067 H Total Protein 6.0 L Albumin 3.5 Lipase 26 COVID-19 ([facility]) COVID-19 Clin Com 07/03/21 07/03/21 06:44 06:44 WBC 6.3 RBC 3.58 L Hgb 10.7 L Hct 32.1 L MCV 89.7 MCH 29.9 MCHC 33.3 RDW 14.7 Plt Count 285 MPV 11.2 Immature Gran % (Auto) 0.5 H Neut % (Auto) 58.3 Lymph % (Auto) 24.3 Edmunds % (Auto) 11.7 H Eos % (Auto) 4.6 H Baso % (Auto) 0.6 Lymph # (Auto) 1.5 Edmunds # (Auto) 0.7 Eos # (Auto) 0.3 Baso # (Auto) 0.0 Abs Immat Gran (auto) 0.03 Absolute Neuts (auto) 3.7 Absolute Nucleated RBC 0.000 Nucleated RBC % (auto) 0.0 PT INR Sodium 145 Potassium 3.6 Chloride 110 H Carbon Dioxide 24 Anion Gap 15 BUN 31 H Creatinine 1.76 H Estim Creat Clear Calc 48.2 Estimated GFR 39 Random Glucose 106 Calcium 8.7 Magnesium Total Bilirubin Direct Bilirubin AST ALT Alkaline Phosphatase Troponin I High Sens B-Natriuretic Peptide Total Protein Albumin Lipase COVID-19 ([facility]) COVID-19 Clin Com Imaging Radiologist's impression: Impressions Chest X-Ray 07/02/21 18:56 IMPRESSION: No acute intrathoracic disease. No significant interval change when compared to the prior study. Assessment and Plan (1) Acute exacerbation of CHF (congestive heart failure): Status: Acute Patient presents with acute decompensated congestive heart failure with evidence of marked fluid overload on clinical exam and respiratory distress, most likely precipitated by new onset atrial fibrillation which is persistent over the last month or 2. Patient was not aware of the diagnosis of atrial fibrillation although mentioned in the chart. He is on Eliquis therapy as well. Clinically still appears to be fluid overloaded. Needs more aggressive diuresis. Overall prognosis is guarded. Eventually require rhythm control approach. For now will start him on Lasix 5 mg an hour drip. Strict intake and output chart needs to be pursued. Close attention to his respiratory status and if she fails to improve will require more intense management and hemodynamic monitoring. Will switch lisinopril to valsartan therapy for afterload reduction eventually switch him to Entresto therapy. Continue Coreg at current dose. Add digoxin 0.25 mg q.6 hours x3 doses IV push for better rate control. Add Aldactone 12.5 mg to his regimen. Had a very detailed discussion with help of aco coordinator about his management. They seem to still not understand the gravity of the situation. Echocardiogram today to assess LV systolic and diastolic function to evaluate for secondary mitral valve regurgitation, biatrial chamber size and pulmonary hypertension. (2) Persistent atrial fibrillation: Status: Acute Persistent atrial fibrillation, unsure as to patient has been getting adequate anticoagulation 2 weeks prior to being home. Currently on Eliquis 5 mg b.i.d. continue the same. Rate is not adequately controlled. Will hold off on maximizing carvedilol therapy due to decompensated heart failure. Add digoxin for rate control. Avoid Cardizem therapy for rate control due to his severe LV systolic dysfunction. Will most likely require RUSTY guided cardioversion to achieve AV synchrony to help his overall heart failure syndrome and prevent recurrent hospitalization. Most likely require antiarrhythmic drug support therapy, with amiodarone (3) Uncontrolled hypertension: Status: Acute Longstanding history of hypertension has been uncontrolled for long time. Not sure if his nonischemic cardiomyopathy is related to hypertension. Blood pressure still remains uncontrolled. Continue carvedilol. Switch from lisinopril to valsartan 40 mg b.i.d.. Add Aldactone 12.5 mg to his regimen. Will gradually maximize his medical therapy. Low-salt diet. Importance of good blood pressure control in long-term was discussed. (4) Cardiac defibrillator in place: Status: Acute ICD in place for primary prevention. Dual-chamber. Will continue monitor and reprogrammed once we achieve cardioversion. Will follow with the patient. Greater than 40 minutes was spent in managing his complex care P Procedures Date of Service Date of Service: 07/03/21
--- NOTE | 2021-07-03 12:39 | MHC.CM.PN ---
met with pt who indicated for me to contact his s/o for this interview called and spoke with ziyad who explins that she stays with pt most of the time but has her own place pt has [facility] for home pt he was recently dcd from [facility] where he was for 2 to 3 weeks pt is vax x 3 hcp on file
[2021-07-03] MEDS: Digoxin 0.5 MG/2 ML AMPUL 0.25 MG IVPUSH ×2 (13:11→18:26)
[2021-07-03] MEDS: Furosemide 200 MG in 0.9 % Sodium Chloride 80 ML IVCONT (13:11)
--- NOTE | 2021-07-03 18:28 | PC.NURSE ---
AT 1712 6beats [place] reported from [facility]. .Dr De Guzman notified via [employer] connect.No new orders,patient was seeing by cardiology today and has new orders already.
[2021-07-03] MEDS: Atorvastatin Calcium 80 MG TABLET PO (19:44)
[2021-07-03] MEDS: Mirtazapine 7.5 MG TABLET PO (19:44)
[2021-07-04 03:34] VITALS: BP 154/88; PULSE 86; RESP 17; TEMP 36.4; O2SAT 100
[2021-07-04 04:18] VITALS: BMI 32.2
[2021-07-04 06:20] LABS: Hemoglobin 10.7 g/dl (14.0-18.0); Mean Corpuscular HGB Conc 32.4 g/dl (31.0-36.0); Mean Corpuscular Hemoglobin 29.7 pg (27.0-33.0); Mean Corpuscular Volume 91.7 fL (80.0-98.0); Mean Platelet Volume 10.8 fL (9.4-12.4); Platelet Count 272 X10*3/uL (160-400); Red Cell Distribution Width 14.5 % (11.0-16.0); White Blood Count 5.1 X10*3/uL (4.8-10.8)
[2021-07-04 06:29] LABS: Anion Gap 13 (12-20); Blood Urea Nitrogen 32 mg/dL (9-16); Calcium 8.2 mg/dL (8.4-10.2); Carbon Dioxide 25 mmol/L (22-29); Chloride 111 mmol/L (96-108); Estimated Glomerular Filt Rate 41; Glucose Fasting 92 mg/dL (60-99); Potassium 3.2 mmol/L (3.3-5.1); Sodium 146 mmol/L (135-145)
[2021-07-04 07:51] VITALS: BP 166/84; PULSE 65; RESP 18; TEMP 36.2; O2SAT 99
[2021-07-04] MEDS: Potassium Chloride ER 20 MEQ TAB.ER.PRT 40 MEQ PO (08:10)
[2021-07-04] MEDS: Famotidine 20 MG TABLET PO (08:10)
[2021-07-04] MEDS: Escitalopram Oxalate 5 MG TABLET PO (08:11)
[2021-07-04] MEDS: Valsartan 80 MG TABLET PO (08:11)
[2021-07-04] MEDS: Spironolactone 25 MG TABLET 12.5 MG PO (08:11)
[2021-07-04] MEDS: Apixaban 5 MG TABLET PO ×2 (08:11→19:53)
[2021-07-04] MEDS: carvediloL 6.25 MG TABLET PO ×2 (08:11→19:52)
[2021-07-04] MEDS: 0.9 % Sodium Chloride Flush 3 ML SYRINGE IVFLUSH (08:18)
--- NOTE | 2021-07-04 08:48 | P.PNIM_ITS ---
Subjective Subjective Date of Service: 07/04/21 Interval History: cc: sob interval history: some improvement, but continues to be sob even at rest Cardiovascular Cardiovascular: Reports no additional cardiovascular complaints Gastrointestinal Gastrointestinal: Reports no additional gastrointestinal complaints Physical Exam Vital Signs: Vital Signs: Last Vital Signs Temp 97.2 F 07/04/21 07:51 Pulse 65 07/04/21 07:51 Resp 18 07/04/21 07:51 BP 166/84 H 07/04/21 07:51 Pulse Ox 99 07/04/21 07:51 Oxygen Flow Rate 4 07/02/21 17:59 BMI result Body Mass Index 32.2 General: AO X 3, tachypneic, dyspneic Resp:? Crackles/wheezes bilateral, accessory muscles used CVS: S1,S2,RRR, le edema bilateral 2-3+ GI: soft, non tender, non distended Neuro:? motor grossly intact, alert Psych: appropriate affect, appropriate insight? Objective Data Active Medications Acetaminophen (Acetaminophen 325 Mg Tablet) 650 mg PO Q6H PRN PRN Reason: Pain, Mild (Pain Scale 1-3) Apixaban (Apixaban 5 Mg Tablet) 5 mg PO BID [facility] Last Admin: 07/04/21 08:11 Dose: 5 mg Documented by: MARK Atorvastatin Calcium (Atorvastatin Calcium 80 Mg Tablet) 80 mg PO BEDTIME [facility] Last Admin: 07/03/21 19:44 Dose: 80 mg Documented by: GORGE Carvedilol (Carvedilol 6.25 Mg Tablet) 6.25 mg PO BID [facility]; Protocol Last Admin: 07/04/21 08:11 Dose: 6.25 mg Documented by: MARK Docusate Sodium (Docusate Sodium 100 Mg Capsule) 100 mg PO DAILY PRN PRN Reason: Constipation Escitalopram Oxalate (Escitalopram Oxalate 5 Mg Tablet) 5 mg PO DAILY [facility] Last Admin: 07/04/21 08:11 Dose: 5 mg Documented by: MARK Famotidine (Famotidine 20 Mg Tablet) 20 mg PO DAILY [facility] Last Admin: 07/04/21 08:10 Dose: 20 mg Documented by: MARK Furosemide 200 mg/ Sodium (Chloride) 100 mls @ 2.5 mls/hr IVCONT .Q24H [facility] Last Admin: 07/03/21 13:11 Dose: 5 mg/hr, 2.5 mls/hr Documented by: HIEU Mirtazapine (Mirtazapine 7.5 Mg Tablet) 7.5 mg PO BEDTIME [facility] Last Admin: 07/03/21 19:44 Dose: 7.5 mg Documented by: GORGE Ondansetron HCl (Ondansetron Hcl 4 Mg/2 Ml Vial) 4 mg IVPUSH Q8H PRN PRN Reason: Nausea and Vomiting Sodium Chloride (0.9 % Sodium Chloride Flush 3 Ml Syringe) 3 ml IVFLUSH QSHIFT [facility] Last Admin: 07/04/21 08:18 Dose: 3 ml Documented by: MARK Spironolactone (Spironolactone 25 Mg Tablet) 12.5 mg PO DAILY [facility]; Protocol Last Admin: 07/04/21 08:11 Dose: 12.5 mg Documented by: MARK Valsartan (Valsartan 80 Mg Tablet) 80 mg PO DAILY [facility]; Protocol Last Admin: 07/04/21 08:11 Dose: 80 mg Documented by: MARK Labs CBC & Chem 7: 07/04/21 05:58 07/04/21 05:58 Labs: Laboratory Results - last 24 hr 07/04/21 07/04/21 05:58 05:58 MCV 91.7 MCH 29.7 MCHC 32.4 RDW 14.5 Plt Count 272 MPV 10.8 Absolute Nucleated RBC 0.000 Nucleated RBC % (auto) 0.0 Anion Gap 13 Estim Creat Clear Calc 49.0 Estimated GFR 41 Fasting Glucose 92 Calcium 8.2 L Assessment and Plan (1) Acute exacerbation of CHF (congestive heart failure): Status: Acute Plan 60M presented with sob acute on chronic systolic chf (non ischemic) continue lasix infusion, monitor labs cardio following continue carvedilol, disconitnued lisinopril started valsartan - eventual transition to entresto started aldactone 12.5mg daily s/p aicd persistent atrial fibrillation with rvr eliquis carvedilol s/p 2 doses digoxin 0.25mg iv - still in afib, rate improved history of cva eliquis statin hypokalemia replace, monitor hypernatremia 146, monitor CKD III stable, montior HTN lisinopril coreg dvt prophylaxis - eliquis full code reason for continued hospitalization: still with sob and le edema requiring lasix infusion, close monitoring Quality Stroke Does the patient have a stroke diagnosis?: No VTE Prior VTE?: No VTE Risk Level:: Medical - moderate - high VTE Device Contraindication: Treatment Not Indicated VTE Drug Contraindication: N/A - Med Ordered
[2021-07-04 12:00] VITALS: BP 160/65; PULSE 74; RESP 15; TEMP 36.2; O2SAT 94
--- NOTE | 2021-07-04 14:16 | P.PNCA_ITS ---
Subjective Subjective Date of Service: 07/04/21 Principal diagnosis: CHF, atrial fibrillation Interval history: Echocardiogram done yesterday shows severe LV systolic dysfunction with significant left atrial enlargement. He has been breathing much better as per the goal friend. He also feels better. Able to lay flatter. Has diuresed well. Tolerating new medications well. Review of Systems Constitutional: Reports no additional constitutional complaints Cardiovascular: Denies chest pain, Reports leg edema, Denies palpitations, Reports dyspnea and Reports orthopnea Respiratory: Reports no additional respiratory complaints and Reports dyspnea Gastrointestinal: Reports no additional gastrointestinal complaints Genitourinary: Reports no additional male genitourinary complaints Skin/Breast: Reports system reviewed and no additional complaints, except as docu Reports system reviewed and no additional complaints, except as documented Psychiatric: Reports no additional psychiatric complaints Endocrine: Denies palpitations Physical Exam Vital Signs: Last Vital Signs Temp 97.2 F 07/04/21 12:00 Pulse 74 07/04/21 12:00 Resp 15 07/04/21 12:00 BP 160/65 H 07/04/21 12:00 Pulse Ox 94 07/04/21 12:00 Oxygen Flow Rate 4 07/02/21 17:59 BMI result Body Mass Index 32.2 Const General: cooperative, comfortable, alert, awake and in distress mild and respiratory Nutritional Appearance: overweight Orientation/consciousness: patient oriented x3 Limitations: no limitations Neck Neck: Yes trachea midline, Yes supple and Yes JVD Resp Effort & Inspection: normal respiratory effort Auscultation: clear to auscultation bilaterally Cardio Jugular venous distension: JVD Rate: regular rate Rhythm: abnormal rhythm irregularly irregular Heart sounds: S1 normal heart sound present, S2 normal heart sound present, no click, no gallops and no murmurs GI Auscultation: normal bowel sounds Skin General skin exam: no rashes or lesions noted Neuro General: patient oriented x3 and no focal motor deficits Extrem General: No clubbing, No cyanosis and Yes edema Objective Labs and Meds Result diagrams: 07/04/21 05:58 07/04/21 05:58 Lab results: Laboratory Results - last 24 hr 07/04/21 07/04/21 05:58 05:58 WBC 5.1 RBC 3.60 L Hgb 10.7 L Hct 33.0 L MCV 91.7 MCH 29.7 MCHC 32.4 RDW 14.5 Plt Count 272 MPV 10.8 Absolute Nucleated RBC 0.000 Nucleated RBC % (auto) 0.0 Sodium 146 H Potassium 3.2 L Chloride 111 H Carbon Dioxide 25 Anion Gap 13 BUN 32 H Creatinine 1.70 H Estim Creat Clear Calc 49.0 Estimated GFR 41 Fasting Glucose 92 Calcium 8.2 L Progress Note: A&P Assessment and plan (1) Acute exacerbation of CHF (congestive heart failure): Status: Acute Assessment and Plan: Acute systolic heart failure in patient with severe nonischemic cardiomyopathy with new onset atrial fibrillation the last couple months is significant left atrial enlargement. Most likely cause of his decompensation is atrial fibrillation as well as no diuretics as outpatient and uncontrolled hypertension. Continue aggressive medical therapy. Will up titrate Diovan 160 mg twice a day. Continue carvedilol therapy and will now maximize at this point time given his fluid overload. Maximize Aldactone to 25 mg daily. Continue IV Lasix drip. He is clinically doing better. Once he is better compensated will plan for RUSTY guided cardioversion, see below. Eventually switch him to Entresto therapy in a day, after 36 hours of stopping lisinopril. (2) Persistent atrial fibrillation: Status: Acute Assessment and Plan: Persistent atrial fibrillation, recent onset. Has significant left atrial enlargement. Likely cause for his decompensation along with under diuresis. Will require RUSTY guided cardioversion. Discussed about risk of RUSTY and risk of cardioversion. Understand agree. Continue Eliquis therapy. Continue current rate control. (3) Uncontrolled hypertension: Status: Acute Assessment and Plan: Uncontrolled hypertension. Increase Aldactone to 25 mg daily and Diovan 160 mg b.i.d.. Eventually will switch his Diovan to Entresto therapy. Will follow with you. Thank you for allowing us to partake in his care Fall Risk Details Current Medications: Current Medications Acetaminophen (Acetaminophen 325 Mg Tablet) 650 mg PO Q6H PRN PRN Reason: Pain, Mild (Pain Scale 1-3) Apixaban (Apixaban 5 Mg Tablet) 5 mg PO BID [facility] Last Admin: 07/04/21 08:11 Dose: 5 mg Documented by: Atorvastatin Calcium (Atorvastatin Calcium 80 Mg Tablet) 80 mg PO BEDTIME [facility] Last Admin: 07/03/21 19:44 Dose: 80 mg Documented by: Carvedilol (Carvedilol 6.25 Mg Tablet) 6.25 mg PO BID [facility]; Protocol Last Admin: 07/04/21 08:11 Dose: 6.25 mg Documented by: Docusate Sodium (Docusate Sodium 100 Mg Capsule) 100 mg PO DAILY PRN PRN Reason: Constipation Escitalopram Oxalate (Escitalopram Oxalate 5 Mg Tablet) 5 mg PO DAILY [facility] Last Admin: 07/04/21 08:11 Dose: 5 mg Documented by: Famotidine (Famotidine 20 Mg Tablet) 20 mg PO DAILY [facility] Last Admin: 07/04/21 08:10 Dose: 20 mg Documented by: Furosemide 200 mg/ Sodium (Chloride) 100 mls @ 2.5 mls/hr IVCONT .Q24H [facility] Last Admin: 07/03/21 13:11 Dose: 5 mg/hr, 2.5 mls/hr Documented by: Mirtazapine (Mirtazapine 7.5 Mg Tablet) 7.5 mg PO BEDTIME [facility] Last Admin: 07/03/21 19:44 Dose: 7.5 mg Documented by: Ondansetron HCl (Ondansetron Hcl 4 Mg/2 Ml Vial) 4 mg IVPUSH Q8H PRN PRN Reason: Nausea and Vomiting Sodium Chloride (0.9 % Sodium Chloride Flush 3 Ml Syringe) 3 ml IVFLUSH QSHIFT [facility] Last Admin: 07/04/21 08:18 Dose: 3 ml Documented by: Spironolactone (Spironolactone 25 Mg Tablet) 12.5 mg PO DAILY [facility]; Protocol Last Admin: 07/04/21 08:11 Dose: 12.5 mg Documented by: Valsartan (Valsartan 80 Mg Tablet) 80 mg PO DAILY [facility]; Protocol Last Admin: 07/04/21 08:11 Dose: 80 mg Documented by: Time Spent With Patient Time: Total time spent is greater than 50% in coordination of care (as documented) at patient's floor/unit and/or counseling patient: Time with patient: 25 - 35 minutes Progress Note: Quality Stroke Does the patient have a stroke diagnosis?: No Procedures Date of Service Date of Service: 07/04/21
[2021-07-04 15:21] VITALS: BP 146/92; PULSE 63; RESP 18; TEMP 36.8; O2SAT 100
--- NOTE | 2021-07-04 16:13 | MHC.CM.PN ---
EMR REVIEWED, PER CARDIOLOGY CARDIAC MEDS ARE BEING ADJUSTED AND ONCE PT IS IMPROVED WILL NEED A RUSTY GUIDED CARDIOVERSION, NO PLAN FOR D/C AT THIS TIME, CM WILL CONT TO FOLLOW. D/C PLAN: HOME W/RESUMP OF [employer] FOR HOME PT, MAY NEED TO ADD HALFWAY
[2021-07-04 19:39] VITALS: BP 132/81; PULSE 65; RESP 20; TEMP 36.2; O2SAT 100
[2021-07-04] MEDS: Mirtazapine 7.5 MG TABLET PO (19:52)
[2021-07-04] MEDS: Atorvastatin Calcium 80 MG TABLET PO (19:52)
[2021-07-04] MEDS: Furosemide 200 MG in 0.9 % Sodium Chloride 80 ML IVCONT (22:16)
[2021-07-04 23:35] VITALS: BP 122/86; PULSE 80; RESP 20; TEMP 36.6; O2SAT 98
--- NOTE | 2021-07-05 | EEG_ITS ---
The waking background activity consists of low voltage fast frequencies seen diffusely, intermixed with a low voltage posterior 10 hertz alpha frequency. One episode of left occipital paroxysmal theta discharges seen for about 10 seconds without any clinical symptoms. Photic stimulation and hyperventilation were omitted. IMPRESSION: This EEG is considered borderline abnormal due to a single episode of left occipital paroxysmal theta, which may suggest some element of cerebral irritability. These findings are not developed well enough to be conclusively diagnostic for a seizure disorder. MD SILVESTRE Jean/EMA / [phone]
[2021-07-05 03:11] VITALS: BP 134/93; PULSE 84; RESP 20; TEMP 36.6; O2SAT 95
[2021-07-05 05:48] LABS: Hemoglobin 11.4 g/dl (14.0-18.0); Mean Corpuscular HGB Conc 32.6 g/dl (31.0-36.0); Mean Corpuscular Hemoglobin 29.8 pg (27.0-33.0); Mean Corpuscular Volume 91.4 fL (80.0-98.0); Mean Platelet Volume 10.6 fL (9.4-12.4); Platelet Count 316 X10*3/uL (160-400); Red Blood Count 3.83 X10*6/uL (4.60-5.80); Red Cell Distribution Width 14.5 % (11.0-16.0); White Blood Count 5.6 X10*3/uL (4.8-10.8)
[2021-07-05 06:06] LABS: Anion Gap 13 (12-20); Blood Urea Nitrogen 36 mg/dL (9-16); Calcium 8.5 mg/dL (8.4-10.2); Carbon Dioxide 29 mmol/L (22-29); Chloride 105 mmol/L (96-108); Creatinine Clr Calc Pharmacy 48.7; Estimated Glomerular Filt Rate 41; Glucose Fasting 94 mg/dL (60-99); Potassium 3.4 mmol/L (3.3-5.1); Sodium 144 mmol/L (135-145)
[2021-07-05 06:11] LABS: B Type Natriuretic Peptide 1185 pg/mL (<100)
[2021-07-05 08:00] VITALS: BP 137/65; PULSE 72; RESP 18; TEMP 36.4; O2SAT 100
[2021-07-05] MEDS: LORazepam 2 MG/ML VIAL IVPUSH (08:15)
[2021-07-05 09:16] LABS: Alanine Aminotransferase 10 U/L (0-40); Albumin Level 3.2 g/dL (3.5-5.0); Alkaline Phosphatase 92 U/L (39-117); Aspartate Amino Transferase 11 U/L (5-37); Bilirubin Direct 0.4 mg/dL (0.0-0.5); Bilirubin Total 1.1 mg/dL (0.0-1.0); Magnesium 1.4 mg/dL (1.6-2.6); Total Protein 5.6 g/dL (6.5-8.0)
[2021-07-05] MEDS: 0.9 % Sodium Chloride Flush 3 ML SYRINGE IVFLUSH ×3 (09:35→22:54)
[2021-07-05] MEDS: Magnesium Sulfate/H2O 2 GM/50 ML PIGGYBACK IV (09:58)
--- NOTE | 2021-07-05 10:06 | P.PNCA_ITS ---
Subjective Subjective Date of Service: 07/05/21 Principal diagnosis: CHF, atrial fibrillation Interval history: Patient had tonic clonic seizure this morning. Etiology is unclear. However patient received Ativan is currently completely knocked out and sedated. Does not respond much to verbal commands. His breathing appears very comfortable. Heart rate is well controlled. Blood pressure is well controlled. No signs of accessory muscle use while laying flat Review of Systems Review of Systems Yes Unobtainable due to mental status Physical Exam Vital Signs: Last Vital Signs Temp 97.5 F 07/05/21 08:00 Pulse 72 07/05/21 08:00 Resp 18 07/05/21 08:00 BP 137/65 07/05/21 08:00 Pulse Ox 100 07/05/21 08:00 Oxygen Flow Rate 4 07/02/21 17:59 BMI result Body Mass Index 32.2 Const General: no acute distress and other (Sedated) Neck Neck: Yes trachea midline, Yes supple and Yes no JVD Resp Effort & Inspection: normal respiratory effort Auscultation: clear to auscultation bilaterally Cardio Jugular venous distension: no JVD Palpation: abnormal PMI displaced PMI Rate: regular rate Rhythm: abnormal rhythm irregularly irregular Heart sounds: S1 normal heart sound present, S2 normal heart sound present, no click, no gallops and no murmurs GI Auscultation: normal bowel sounds Skin General skin exam: no rashes or lesions noted Neuro General: no focal motor deficits Extrem General: Yes no clubbing, cyanosis or edema Objective Labs and Meds Result diagrams: 07/05/21 05:38 07/05/21 05:38 Lab results: Laboratory Results - last 24 hr 07/05/21 07/05/21 07/05/21 05:38 05:38 05:38 WBC 5.6 RBC 3.83 L Hgb 11.4 L Hct 35.0 L MCV 91.4 MCH 29.8 MCHC 32.6 RDW 14.5 Plt Count 316 MPV 10.6 Absolute Nucleated RBC 0.000 Nucleated RBC % (auto) 0.0 Sodium 144 Potassium 3.4 Chloride 105 Carbon Dioxide 29 Anion Gap 13 BUN 36 H Creatinine 1.71 H Estim Creat Clear Calc 48.7 Estimated GFR 41 Fasting Glucose 94 Calcium 8.5 Magnesium 1.4 L* Total Bilirubin 1.1 H Direct Bilirubin 0.4 AST 11 ALT 10 Alkaline Phosphatase 92 B-Natriuretic Peptide 1185 H Total Protein 5.6 L Albumin 3.2 L Imaging Radiologist's impression: Impressions Head CT 07/05/21 09:20 IMPRESSION: Large area of hypoattenuation throughout the left MCA territory likely represents encephalomalacia from a chronic infarct, though there is no prior for comparison. No intracranial hemorrhage. Progress Note: A&P Assessment and plan (1) CHF (congestive heart failure): Status: Acute Assessment and Plan: Patient is admitted with acute exacerbation of CHF. Clinically doing much better at this point in time. Switch him to p.o. Bumex 2 mg daily. Switch Diovan to Entresto 49-51 mg b.i.d.. Continue carvedilol and Aldactone therapy. Continue to monitor electrolytes and renal function. There is sudden change in his neurologic function at this point time. Await neurology consultation. If cleared by Neurology would still proceed with RUSTY guided cardioversion tomorrow. If not can be done as outpatient. Continue current rate control, see below (2) Persistent atrial fibrillation: Status: Acute Assessment and Plan: Atrial fibrillation, new onset, persistent. Rate is adequately controlled at this point time. Heart failure syndrome is well controlled. However I think given his poor cardiac function he will benefit with rhythm management. Given his left atrial enlargement and unclear total duration of anticoagulation prior to admission will pursue RUSTY guided cardioversion, tomorrow if cleared. Continue Eliquis full oral anticoagulation 5 mg b.i.d.. (3) Uncontrolled hypertension: Status: Acute Assessment and Plan: Uncontrolled hypertension, currently well controlled. Continue current therapy. Adjustment of meds as above. Fall Risk Details Current Medications: Current Medications Acetaminophen (Acetaminophen 325 Mg Tablet) 650 mg PO Q6H PRN PRN Reason: Pain, Mild (Pain Scale 1-3) Apixaban (Apixaban 5 Mg Tablet) 5 mg PO BID [facility] Last Admin: 07/05/21 09:37 Dose: Not Given Documented by: Atorvastatin Calcium (Atorvastatin Calcium 80 Mg Tablet) 80 mg PO BEDTIME [facility] Last Admin: 07/04/21 19:52 Dose: 80 mg Documented by: Carvedilol (Carvedilol 6.25 Mg Tablet) 6.25 mg PO BID [facility]; Protocol Last Admin: 07/05/21 09:37 Dose: Not Given Documented by: Docusate Sodium (Docusate Sodium 100 Mg Capsule) 100 mg PO DAILY PRN PRN Reason: Constipation Escitalopram Oxalate (Escitalopram Oxalate 5 Mg Tablet) 5 mg PO DAILY [facility] Last Admin: 07/05/21 09:37 Dose: Not Given Documented by: Famotidine (Famotidine 20 Mg Tablet) 20 mg PO DAILY [facility] Last Admin: 07/05/21 09:38 Dose: Not Given Documented by: Furosemide 200 mg/ Sodium (Chloride) 100 mls @ 2.5 mls/hr IVCONT .Q24H [facility] Last Admin: 07/04/21 22:16 Dose: 5 mg/hr, 2.5 mls/hr Documented by: Magnesium Sulfate (Magnesium Sulfate/H2o) 2 gm in 50 mls @ 25 mls/hr IV ONCE ONE Stop: 07/05/21 11:14 Last Admin: 07/05/21 09:58 Dose: 25 mls/hr Documented by: Levetiracetam (Keppra) 500 mg in 100 mls @ 400 mls/hr IV Q12H [facility] Lorazepam (Lorazepam 2 Mg/Ml Vial) 2 mg IVPUSH ONCE PRN PRN Reason: Seizures Mirtazapine (Mirtazapine 7.5 Mg Tablet) 7.5 mg PO BEDTIME [facility] Last Admin: 07/04/21 19:52 Dose: 7.5 mg Documented by: Ondansetron HCl (Ondansetron Hcl 4 Mg/2 Ml Vial) 4 mg IVPUSH Q8H PRN PRN Reason: Nausea and Vomiting Sodium Chloride (0.9 % Sodium Chloride Flush 3 Ml Syringe) 3 ml IVFLUSH QSHIFT [facility] Last Admin: 07/05/21 09:35 Dose: 3 ml Documented by: Spironolactone (Spironolactone 25 Mg Tablet) 25 mg PO DAILY [facility]; Protocol Last Admin: 07/05/21 09:38 Dose: Not Given Documented by: Valsartan (Valsartan 160 Mg Tablet) 160 mg PO BID [facility]; Protocol Time Spent With Patient Time: Total time spent is greater than 50% in coordination of care (as documented) at patient's floor/unit and/or counseling patient: Time with patient: 25 - 35 minutes Progress Note: Quality Stroke Does the patient have a stroke diagnosis?: No Procedures Date of Service Date of Service: 07/05/21
--- NOTE | 2021-07-05 10:09 | PC.NURSE ---
Received report from Rosie CARLSO at 0730. At 0830,was called into 453 for patient having seizure. Seizure activity noted. Placed on left side and [employer]URN[employer] called overhead. DR. Turk at bedside along with [employer] team. Ativan given IVP. Sz ceased in 2-4 min. On NRB. Patient brought to CT Scan. HR 130 AFIB (MD aware).
--- NOTE | 2021-07-05 10:12 | PC.NURSE ---
[place] RN given report on patient to assume care
[2021-07-05 12:00] VITALS: BP 141/97; PULSE 81; RESP 15; TEMP 36.4; O2SAT 97
[2021-07-05] MEDS: levETIRAcetam in NaCl (iso-os) 500 MG/100 ML PIGGYBACK 400 MG IV ×2 (12:12→21:29)
--- NOTE | 2021-07-05 12:37 | HO.PM.IMPN ---
Subjective Subjective Date of Service: 07/05/21 Interval History: the patient was seen and evaluated this morning Laying in bed, looks comfortable with stable vital signs Had an episode of seizure this morning, control medications No reported other overnight events. Systemic review: non verbal to communicate Physical Exam Vital Signs: Vital Signs: Last Vital Signs Temp 97.5 F 07/05/21 08:00 Pulse 72 07/05/21 08:00 Resp 18 07/05/21 08:00 BP 137/65 07/05/21 08:00 Pulse Ox 100 07/05/21 08:00 Oxygen Flow Rate 4 07/02/21 17:59 BMI result Body Mass Index 32.2 Const: Other: Constitutional : altered mentation, not in distress Neck : Normal inspection, Supple Cardiovascular : RRR, S1 S2, trace bilateral lower extremity edema Respiratory : fair bilateral air entry, no crackles, wheezes or rhonchi Gastrointestinal: soft, lax, Normal bowel sounds, Non tender Skin : Warm, Dry Neurological : difficult to arose, sleeping after medications, right-sided weakness Objective Data Active Medications Acetaminophen (Acetaminophen 325 Mg Tablet) 650 mg PO Q6H PRN PRN Reason: Pain, Mild (Pain Scale 1-3) Apixaban (Apixaban 5 Mg Tablet) 5 mg PO BID [facility] Last Admin: 07/05/21 09:37 Dose: Not Given Documented by: FLORES Non-Admin Reason: s/p seizure Atorvastatin Calcium (Atorvastatin Calcium 80 Mg Tablet) 80 mg PO BEDTIME [facility] Last Admin: 07/04/21 19:52 Dose: 80 mg Documented by: AMBER Carvedilol (Carvedilol 6.25 Mg Tablet) 6.25 mg PO BID [facility]; Protocol Last Admin: 07/05/21 09:37 Dose: Not Given Documented by: FLORES Non-Admin Reason: S/P seizure Docusate Sodium (Docusate Sodium 100 Mg Capsule) 100 mg PO DAILY PRN PRN Reason: Constipation Escitalopram Oxalate (Escitalopram Oxalate 5 Mg Tablet) 5 mg PO DAILY [facility] Last Admin: 07/05/21 09:37 Dose: Not Given Documented by: FLORES Non-Admin Reason: s/p seizure Famotidine (Famotidine 20 Mg Tablet) 20 mg PO DAILY [facility] Last Admin: 07/05/21 09:38 Dose: Not Given Documented by: FLORES Non-Admin Reason: s/p seizure Furosemide 200 mg/ Sodium (Chloride) 100 mls @ 2.5 mls/hr IVCONT .Q24H [facility] Last Admin: 07/04/21 22:16 Dose: 5 mg/hr, 2.5 mls/hr Documented by: AMBER Levetiracetam (Keppra) 500 mg in 100 mls @ 400 mls/hr IV Q12H [facility] Last Admin: 07/05/21 12:12 Dose: 400 mls/hr Documented by: HI Lorazepam (Lorazepam 2 Mg/Ml Vial) 2 mg IVPUSH ONCE PRN PRN Reason: Seizures Mirtazapine (Mirtazapine 7.5 Mg Tablet) 7.5 mg PO BEDTIME [facility] Last Admin: 07/04/21 19:52 Dose: 7.5 mg Documented by: AMBER Ondansetron HCl (Ondansetron Hcl 4 Mg/2 Ml Vial) 4 mg IVPUSH Q8H PRN PRN Reason: Nausea and Vomiting Sodium Chloride (0.9 % Sodium Chloride Flush 3 Ml Syringe) 3 ml IVFLUSH QSHIFT [facility] Last Admin: 07/05/21 09:35 Dose: 3 ml Documented by: FLORES Spironolactone (Spironolactone 25 Mg Tablet) 25 mg PO DAILY [facility]; Protocol Last Admin: 07/05/21 09:38 Dose: Not Given Documented by: FLORES Non-Admin Reason: s/p seiazure Valsartan (Valsartan 160 Mg Tablet) 160 mg PO BID [facility]; Protocol Labs CBC & Chem 7: 07/05/21 05:38 07/05/21 05:38 Labs: Laboratory Results - last 24 hr 07/05/21 07/05/21 07/05/21 05:38 05:38 05:38 MCV 91.4 MCH 29.8 MCHC 32.6 RDW 14.5 Plt Count 316 MPV 10.6 Absolute Nucleated RBC 0.000 Nucleated RBC % (auto) 0.0 Anion Gap 13 Estim Creat Clear Calc 48.7 Estimated GFR 41 Fasting Glucose 94 Calcium 8.5 Magnesium 1.4 L* Total Bilirubin 1.1 H Direct Bilirubin 0.4 AST 11 ALT 10 Alkaline Phosphatase 92 B-Natriuretic Peptide 1185 H Total Protein 5.6 L Albumin 3.2 L Assessment and Plan (1) New onset seizure: Status: Acute (2) Acute exacerbation of CHF (congestive heart failure): Status: Acute (3) Persistent atrial fibrillation: Status: Acute Plan 60M presented with sob new onset seizures Noted this morning Has history of underlying CVA CT scan negative for any acute findings Received lorazepam Loaded with Keppra to do EEG To get neurology evaluation acute on chronic systolic chf (non ischemic) s/p aicd discontinue Lasix infusion, start Bumex daily cardio following continue carvedilol, disconitnued lisinopril Discontinue valsartan and switch to entresto increase Aldactone to 25 mg daily persistent atrial fibrillation with rvr eliquis carvedilol s/p 2 doses digoxin 0.25mg iv - still in afib, plan to do URSTY in or outpatient depending on the recurrence of the seizure and neurology clearance history of cva eliquis statin hypokalemia replace, monitor hypernatremia 146, monitor CKD III stable, montior HTN lisinopril coreg dvt prophylaxis - eliquis full code reason for continued hospitalization: developed seizure that needs further evaluation, still altered mentation, monitor changes in his fluid overload management, close monitoring Quality Stroke Does the patient have a stroke diagnosis?: No VTE Prior VTE?: No VTE Risk Level:: Medical - moderate - high VTE Device Contraindication: Treatment Not Indicated VTE Drug Contraindication: N/A - Med Ordered
[2021-07-05 15:01] VITALS: BP 131/89; PULSE 73; RESP 15; TEMP 36.1; O2SAT 100
--- NOTE | 2021-07-05 16:51 | PM.NEUROCN ---
History of Present Illness Data of Consult Service Date: 07/05/21 Primary Care Provider: Jessica Alan MD [facility] Reason for consult: Seizure 60-year-old male with past medical history of CVA x2, ? nonischemic cardiomyopathy status post AICD placement, CKD stage 2, hypertension, who presents to the hospital with complaints of shortness of breath as well as lower extremity edema.? Patient was discharged from the rehab about 2 weeks ago for rehabilitation for his 2nd CVA that he had in March.? Apparently he had an episode of seizure this morning. Details are unclear. He could not provide any history. His family member sitting next to him also was not there. Apparently his mental status has changed since then his language function has worsened. Review of Systems Review of Systems: Could not be done with him PMFSH Past Medical History Medical History (Updated 07/05/21 @ 12:48 by Stephen Turk MD) Cardiac defibrillator in place CHF (congestive heart failure) Chronic systolic heart failure CKD (chronic kidney disease), stage II Embolism of kidney Gallstones Hypertension NICM (nonischemic cardiomyopathy) NSVT (nonsustained ventricular tachycardia) Persistent atrial fibrillation Renal infarct Family History Family History Other CAD (coronary artery disease) Surgical History Surgical History History of cardiac defibrillator placement Social History Social History Household Members: Spouse Housing: House Do you presently have visiting nurse or other home services: No Alcohol intake: never Patient Tobacco Use Status: Never used Tobacco Advance Directives Date on File: 10/18/20 service: Yes Current occupational status: employed Meds Allergies Allergy/AdvReac Type Severity Reaction Status Date / Time No Known Allergies Allergy Verified 07/03/21 10:58 [No Known Allergies*] Active Medications: Current Medications Acetaminophen (Acetaminophen 325 Mg Tablet) 650 mg PO Q6H PRN PRN Reason: Pain, Mild (Pain Scale 1-3) Apixaban (Apixaban 5 Mg Tablet) 5 mg PO BID [facility] Last Admin: 07/05/21 09:37 Dose: Not Given Documented by: Atorvastatin Calcium (Atorvastatin Calcium 80 Mg Tablet) 80 mg PO BEDTIME [facility] Last Admin: 07/04/21 19:52 Dose: 80 mg Documented by: Bumetanide (Bumetanide 1 Mg Tablet) 2 mg PO DAILY [facility]; Protocol Carvedilol (Carvedilol 6.25 Mg Tablet) 6.25 mg PO BID [facility]; Protocol Last Admin: 07/05/21 09:37 Dose: Not Given Documented by: Docusate Sodium (Docusate Sodium 100 Mg Capsule) 100 mg PO DAILY PRN PRN Reason: Constipation Escitalopram Oxalate (Escitalopram Oxalate 5 Mg Tablet) 5 mg PO DAILY [facility] Last Admin: 07/05/21 09:37 Dose: Not Given Documented by: Famotidine (Famotidine 20 Mg Tablet) 20 mg PO DAILY [facility] Last Admin: 07/05/21 09:38 Dose: Not Given Documented by: Levetiracetam (Keppra) 500 mg in 100 mls @ 400 mls/hr IV Q12H [facility] Last Infusion: 07/05/21 13:19 Dose: Infused Documented by: Lorazepam (Lorazepam 2 Mg/Ml Vial) 2 mg IVPUSH ONCE PRN PRN Reason: Seizures Mirtazapine (Mirtazapine 7.5 Mg Tablet) 7.5 mg PO BEDTIME [facility] Last Admin: 07/04/21 19:52 Dose: 7.5 mg Documented by: Ondansetron HCl (Ondansetron Hcl 4 Mg/2 Ml Vial) 4 mg IVPUSH Q8H PRN PRN Reason: Nausea and Vomiting Sacubitril/Valsartan (Sacubitril/Valsartan 49/51 1 Tab Tablet) 1 tab PO BID [facility]; Protocol Sodium Chloride (0.9 % Sodium Chloride Flush 3 Ml Syringe) 3 ml IVFLUSH QSHIFT [facility] Last Admin: 07/05/21 16:30 Dose: 3 ml Documented by: Spironolactone (Spironolactone 25 Mg Tablet) 25 mg PO DAILY [facility]; Protocol Last Admin: 07/05/21 09:38 Dose: Not Given Documented by: Home Medications Medication Instructions Recorded Confirmed Last Taken Type apixaban 5 mg tablet (Eliquis) 5 mg PO BID 07/02/21 07/02/21 Unknown History atorvastatin 80 mg tablet 80 mg PO BEDTIME 07/02/21 07/02/21 Unknown History carvedilol 6.25 mg tablet 6.25 mg PO BID 07/02/21 07/02/21 Unknown History citalopram 10 mg tablet 10 mg PO DAILY 07/02/21 07/02/21 Unknown History famotidine 20 mg tablet 20 mg PO DAILY 07/02/21 07/02/21 Unknown History lisinopril 5 mg tablet 5 mg PO DAILY 07/02/21 07/02/21 Unknown History mirtazapine 7.5 mg tablet 7.5 mg PO DAILY 07/02/21 07/02/21 Unknown History Physical Exam Vital Signs: Vital Signs: Last Vital Signs Temp 96.9 F 07/05/21 15:01 Pulse 73 07/05/21 15:01 Resp 15 07/05/21 15:01 BP 131/89 07/05/21 15:01 Pulse Ox 100 07/05/21 15:01 Oxygen Flow Rate 4 07/02/21 17:59 BMI result Body Mass Index 32.2 Neuro: Other: He was quite drowsy. He did not follow commands and I did not get any spontaneous speech. Her there was no gaze deviation or jerking. There is right hemiparesis. Examination is limited. Results Labs CBC & Chem 7: 07/05/21 05:38 07/05/21 05:38 Labs: Short CBC 07/05/21 Range/Units 05:38 WBC 5.6 (4.8-10.8) X10*3/uL Hgb 11.4 L (14.0-18.0) g/dl Hct 35.0 L (42.0-52.0) % Plt Count 316 (160-400) X10*3/uL BMP 07/05/21 05:38 Sodium 144 Potassium 3.4 Chloride 105 Carbon Dioxide 29 BUN 36 H Creatinine 1.71 H Calcium 8.5 Liver Function 07/05/21 Range/Units 05:38 Total Bilirubin 1.1 H (0.0-1.0) mg/dL Direct Bilirubin 0.4 (0.0-0.5) mg/dL AST 11 (5-37) U/L ALT 10 (0-40) U/L Alkaline Phosphatase 92 (39-117) U/L Albumin 3.2 L (3.5-5.0) g/dL Noncontrast head CT revealed a chronic large left middle cerebral artery infarct involving almost whole MCA territory. Assessment and Plan (1) New onset seizure: Status: Acute 60 years old man with the large left middle cerebral artery infarct resulting in right hemiparesis and aphasia was noted to have a seizure this morning. Further detail was not available. Seizure were not uncommon in this type of patients. I would recommend starting him on levetiracetam 500 mg twice a day. If his mental status does not improve tomorrow, an EEG is recommended to rule out nonconvulsive epileptic discharges. As far as investigations like transesophageal echocardiogram is concerned, I would defer that until his mental status is at least back to baseline. Procedures Date of Service Date of Service: 07/05/21
[2021-07-05 19:46] VITALS: BP 119/87; PULSE 67; RESP 18; TEMP 36.1; O2SAT 98
[2021-07-05] MEDS: Atorvastatin Calcium 80 MG TABLET PO (21:31)
[2021-07-05] MEDS: carvediloL 6.25 MG TABLET PO (21:31)
[2021-07-05] MEDS: Mirtazapine 7.5 MG TABLET PO (21:31)
[2021-07-05] MEDS: Apixaban 5 MG TABLET PO (21:31)
[2021-07-05] MEDS: Sacubitril/Valsartan 49/51 1 TAB TABLET PO (22:53)
[2021-07-05 23:38] VITALS: BP 141/95; PULSE 96; RESP 18; TEMP 36.3; O2SAT 100
[2021-07-06] VITALS (7 sets, daily range): BP systolic 112–138; BP diastolic 62–89; PULSE 52–86; RESP 17–20; TEMP 36.3–37; O2SAT 94–100
[2021-07-06 06:16] LABS: Hematocrit 34.9 % (42.0-52.0); Hemoglobin 11.2 g/dl (14.0-18.0); Mean Corpuscular HGB Conc 32.1 g/dl (31.0-36.0); Mean Corpuscular Hemoglobin 29.9 pg (27.0-33.0); Mean Corpuscular Volume 93.3 fL (80.0-98.0); Mean Platelet Volume 10.7 fL (9.4-12.4); Platelet Count 327 X10*3/uL (160-400); Red Blood Count 3.74 X10*6/uL (4.60-5.80); Red Cell Distribution Width 14.5 % (11.0-16.0); White Blood Count 5.7 X10*3/uL (4.8-10.8)
[2021-07-06 06:40] LABS: Magnesium 1.9 mg/dL (1.6-2.6)
[2021-07-06 06:42] LABS: Anion Gap 14 (12-20); Blood Urea Nitrogen 37 mg/dL (9-16); Calcium 8.7 mg/dL (8.4-10.2); Carbon Dioxide 29 mmol/L (22-29); Chloride 105 mmol/L (96-108); Creatinine Clr Calc Pharmacy 45.8; Estimated Glomerular Filt Rate 38; Glucose Random 106 mg/dL (60-115); Potassium 3.6 mmol/L (3.3-5.1); Sodium 144 mmol/L (135-145)
[2021-07-06] MEDS: Apixaban 5 MG TABLET PO ×2 (10:14→21:41)
[2021-07-06] MEDS: Famotidine 20 MG TABLET PO (10:14)
[2021-07-06] MEDS: carvediloL 6.25 MG TABLET PO ×2 (10:14→21:40)
[2021-07-06] MEDS: 0.9 % Sodium Chloride Flush 3 ML SYRINGE IVFLUSH ×3 (10:14→21:42)
[2021-07-06] MEDS: Escitalopram Oxalate 5 MG TABLET PO (10:14)
[2021-07-06] MEDS: Bumetanide 1 MG TABLET 2 MG PO (10:15)
[2021-07-06] MEDS: Sacubitril/Valsartan 49/51 1 TAB TABLET PO ×2 (10:15→21:41)
[2021-07-06] MEDS: Spironolactone 25 MG TABLET PO (10:15)
[2021-07-06] MEDS: levETIRAcetam in NaCl (iso-os) 500 MG/100 ML PIGGYBACK 400 MG IV ×2 (10:22→21:41)
--- NOTE | 2021-07-06 10:46 | P.PNCA_ITS ---
Subjective Subjective Date of Service: 07/06/21 Principal diagnosis: CHF, atrial fibrillation Interval history: Patient has had no further neurologic symptoms. Appears fatigued. Otherwise no cardiac symptoms. Breathing significantly improved. Creatinine is stable. Blood pressure is still on the higher side. Atrial fibrillation rate has remained controlled Review of Systems Constitutional: Reports no additional constitutional complaints Cardiovascular: Reports no additional cardiovascular complaints Respiratory: Reports no additional respiratory complaints Gastrointestinal: Reports no additional gastrointestinal complaints Skin/Breast: Reports system reviewed and no additional complaints, except as docu Reports system reviewed and no additional complaints, except as documented Physical Exam Vital Signs: Last Vital Signs Temp 97.6 F 07/06/21 07:45 Pulse 61 07/06/21 07:45 Resp 20 07/06/21 07:45 BP 133/89 07/06/21 07:45 Pulse Ox 100 07/06/21 07:45 Oxygen Flow Rate 4 07/02/21 17:59 BMI result Body Mass Index 32.2 Const General: cooperative, comfortable, no acute distress and tired appearing Nutritional Appearance: overweight Orientation/consciousness: patient oriented x3 Neck Neck: Yes trachea midline, Yes supple and Yes no JVD Resp Effort & Inspection: normal respiratory effort Auscultation: clear to auscultation bilaterally Cardio Jugular venous distension: no JVD Palpation: abnormal PMI displaced PMI Rate: regular rate Rhythm: abnormal rhythm irregularly irregular Heart sounds: S1 normal heart sound present, S2 normal heart sound present, no click, no gallops and no murmurs GI Auscultation: normal bowel sounds Skin General skin exam: no rashes or lesions noted Neuro General: patient oriented x3 and no focal motor deficits Extrem General: Yes no clubbing, cyanosis or edema Objective Labs and Meds Result diagrams: 07/06/21 05:40 07/06/21 05:40 Lab results: Laboratory Results - last 24 hr 07/06/21 07/06/21 07/06/21 05:40 05:40 05:40 WBC 5.7 RBC 3.74 L Hgb 11.2 L Hct 34.9 L MCV 93.3 MCH 29.9 MCHC 32.1 RDW 14.5 Plt Count 327 MPV 10.7 Absolute Nucleated RBC 0.000 Nucleated RBC % (auto) 0.0 Sodium 144 Potassium 3.6 Chloride 105 Carbon Dioxide 29 Anion Gap 14 BUN 37 H Creatinine 1.82 H Estim Creat Clear Calc 45.8 Estimated GFR 38 Random Glucose 106 Calcium 8.7 Magnesium 1.9 Progress Note: A&P Assessment and plan (1) Acute exacerbation of CHF (congestive heart failure): Status: Acute Assessment and Plan: Admitted with acute congestive heart failure related to lack of diuretic therapy as well as persistent atrial fibrillation setting of severe cardiomyopathy. Clinically much improved with rate control as well as diuresis. Renal function has remained stable. Continue maximize neurohormonal modulation. Would consider increasing carvedilol. Continue current Entresto, Aldactone therapy. Continue current diuretic therapy. Heart failure education needs to be provided both to the patient and patient's significant other. At current time as his cardiac status has improved and he had a neurologic event yesterday will defer synchronized cardioversion at this point in time. However I think he still will benefit from rhythm control approach with improving as cardiac output in the long run. This can be pursued as outpatient (2) Persistent atrial fibrillation: Status: Acute Assessment and Plan: Persistent atrial fibrillation now well rate controlled. Increase carvedilol as above. Continue full oral anticoagulation with Eliquis 5 mg b.i.d. given his recent stroke with high risk for thromboembolic complication. Once he is adequately anticoagulated without interruption, can pursue cardioversion in the future without the need for RUSTY. Will continue monitor remotely via ICD follow- up. (3) Uncontrolled hypertension: Status: Acute Assessment and Plan: Uncontrolled hypertension which is now much improved. Continue current therapy with Entresto, Aldactone. Maximized Coreg. Will sign of the case at this point time. Please feel free to contact us. Will set up for outpatient follow-up Fall Risk Details Current Medications: Current Medications Acetaminophen (Acetaminophen 325 Mg Tablet) 650 mg PO Q6H PRN PRN Reason: Pain, Mild (Pain Scale 1-3) Apixaban (Apixaban 5 Mg Tablet) 5 mg PO BID [facility] Last Admin: 07/06/21 10:14 Dose: 5 mg Documented by: Atorvastatin Calcium (Atorvastatin Calcium 80 Mg Tablet) 80 mg PO BEDTIME [facility] Last Admin: 07/05/21 21:31 Dose: 80 mg Documented by: Bumetanide (Bumetanide 1 Mg Tablet) 2 mg PO DAILY [facility]; Protocol Last Admin: 07/06/21 10:15 Dose: 2 mg Documented by: Carvedilol (Carvedilol 6.25 Mg Tablet) 6.25 mg PO BID [facility]; Protocol Last Admin: 07/06/21 10:14 Dose: 6.25 mg Documented by: Docusate Sodium (Docusate Sodium 100 Mg Capsule) 100 mg PO DAILY PRN PRN Reason: Constipation Escitalopram Oxalate (Escitalopram Oxalate 5 Mg Tablet) 5 mg PO DAILY [facility] Last Admin: 07/06/21 10:14 Dose: 5 mg Documented by: Famotidine (Famotidine 20 Mg Tablet) 20 mg PO DAILY [facility] Last Admin: 07/06/21 10:14 Dose: 20 mg Documented by: Levetiracetam (Keppra) 500 mg in 100 mls @ 400 mls/hr IV Q12H [facility] Last Admin: 07/06/21 10:22 Dose: 400 mls/hr Documented by: Lorazepam (Lorazepam 2 Mg/Ml Vial) 2 mg IVPUSH ONCE PRN PRN Reason: Seizures Mirtazapine (Mirtazapine 7.5 Mg Tablet) 7.5 mg PO BEDTIME [facility] Last Admin: 07/05/21 21:31 Dose: 7.5 mg Documented by: Ondansetron HCl (Ondansetron Hcl 4 Mg/2 Ml Vial) 4 mg IVPUSH Q8H PRN PRN Reason: Nausea and Vomiting Sacubitril/Valsartan (Sacubitril/Valsartan 49/51 1 Tab Tablet) 1 tab PO BID [facility]; Protocol Last Admin: 07/06/21 10:15 Dose: 1 tab Documented by: Sodium Chloride (0.9 % Sodium Chloride Flush 3 Ml Syringe) [facility] Last Admin: 07/06/21 10:14 Dose: 3 ml Documented by: Spironolactone (Spironolactone 25 Mg Tablet) 25 mg PO DAILY [facility]; Protocol Last Admin: 07/06/21 10:15 Dose: 25 mg Documented by: Time Spent With Patient Time: Total time spent is greater than 50% in coordination of care (as documented) at patient's floor/unit and/or counseling patient: Time with patient: 25 - 35 minutes Progress Note: Quality Stroke Does the patient have a stroke diagnosis?: No Procedures Date of Service Date of Service: 07/06/21
--- NOTE | 2021-07-06 12:11 | HO.PM.IMPN ---
Subjective Subjective Date of Service: 07/06/21 Interval History: the patient was seen and evaluated this morning Laying in bed, looks comfortable And interactive but still mildly drowsy and confused no reported seizures overnight No reported other overnight events. Systemic review: No fever, chills but reported generalized weakness and feeling sleepy No chest pain, palpitation No shortness of breath or coughing No abdominal pain, nausea or vomiting No urinary symptoms No any rash or wounds Physical Exam Vital Signs: Vital Signs: Last Vital Signs Temp 97.9 F 07/06/21 11:46 Pulse 54 07/06/21 11:46 Resp 20 07/06/21 11:46 BP 138/89 07/06/21 11:46 Pulse Ox 99 07/06/21 11:46 Oxygen Flow Rate 4 07/02/21 17:59 BMI result Body Mass Index 32.2 Const: Other: Constitutional : alert, interactive, not in distress Neck : Normal inspection, Supple Cardiovascular : irregular irregular, S1 S2, trace bilateral lower extremity edema Respiratory : fair bilateral air entry, no crackles, wheezes or rhonchi Gastrointestinal: soft, lax, Normal bowel sounds, Non tender Skin : Warm, Dry Neurological : alert, oriented to self and place but mildly slow , baseline right-sided weakness Objective Data Active Medications Acetaminophen (Acetaminophen 325 Mg Tablet) 650 mg PO Q6H PRN PRN Reason: Pain, Mild (Pain Scale 1-3) Apixaban (Apixaban 5 Mg Tablet) 5 mg PO BID [facility]PL[facility] BY [facility] Last Admin: 07/06/21 10:14 Dose: 5 mg Documented by: DANIELLA Atorvastatin Calcium (Atorvastatin Calcium 80 Mg Tablet) 80 mg PO BEDTIME [facility]PLACED BY [facility] Last Admin: 07/05/21 21:31 Dose: 80 mg Documented by: ITALO Bumetanide (Bumetanide 1 Mg Tablet) 2 mg PO DAILY [facility]; Protocol Last Admin: 07/06/21 10:15 Dose: 2 mg Documented by: DANIELLA Carvedilol (Carvedilol 6.25 Mg Tablet) 6.25 mg PO BID [facility]; Protocol Last Admin: 07/06/21 10:14 Dose: 6.25 mg Documented by: DANIELLA Docusate Sodium (Docusate Sodium 100 Mg Capsule) 100 mg PO DAILY PRN PRN Reason: Constipation Escitalopram Oxalate (Escitalopram Oxalate 5 Mg Tablet) 5 mg PO DAILY [facility] Last Admin: 07/06/21 10:14 Dose: 5 mg Documented by: DANIELLA Famotidine (Famotidine 20 Mg Tablet) 20 mg PO DAILY [facility] Last Admin: 07/06/21 10:14 Dose: 20 mg Documented by: DANIELLA Levetiracetam (Keppra) 500 mg in 100 mls @ 400 mls/hr IV Q12H [facility] Last Infusion: 07/06/21 10:50 Dose: 0 mls/hr Documented by: DANIELLA Lorazepam (Lorazepam 2 Mg/Ml Vial) 2 mg IVPUSH ONCE PRN PRN Reason: Seizures Mirtazapine (Mirtazapine 7.5 Mg Tablet) 7.5 mg PO BEDTIME [facility] Last Admin: 07/05/21 21:31 Dose: 7.5 mg Documented by: ITALO Ondansetron HCl (Ondansetron Hcl 4 Mg/2 Ml Vial) 4 mg IVPUSH Q8H PRN PRN Reason: Nausea and Vomiting Sacubitril/Valsartan (Sacubitril/Valsartan 49/51 1 Tab Tablet) 1 tab PO BID [facility]; Protocol Last Admin: 07/06/21 10:15 Dose: 1 tab Documented by: DANIELLA Sodium Chloride (0.9 % Sodium Chloride Flush 3 Ml Syringe) 3 ml IVFLUSH QSHIFT [facility]PLACED BY [facility] Last Admin: 07/06/21 10:14 Dose: 3 ml Documented by: DANIELLA Spironolactone (Spironolactone 25 Mg Tablet) 25 mg PO DAILY [facility]; Protocol Last Admin: 07/06/21 10:15 Dose: 25 mg Documented by: DANIELLA Labs CBC & Chem 7: 07/06/21 05:40 07/06/21 05:40 Labs: Laboratory Results - last 24 hr 07/06/21 07/06/21 07/06/21 05:40 05:40 05:40 MCV 93.3 MCH 29.9 MCHC 32.1 RDW 14.5 Plt Count 327 MPV 10.7 Absolute Nucleated RBC 0.000 Nucleated RBC % (auto) 0.0 Anion Gap 14 Estim Creat Clear Calc 45.8 Estimated GFR 38 Random Glucose 106 Calcium 8.7 Magnesium 1.9 Assessment and Plan (1) New onset seizure: Status: Acute (2) Acute exacerbation of CHF (congestive heart failure): Status: Acute Plan 60M presented with sob new onset seizures no recurrence overnight Has history of underlying CVA CT scan negative for any acute findings continue with Keppra pending EEG neurology input appreciated acute on chronic systolic chf (non ischemic) s/p aicd continue Bumex daily, Lasix drip discontinue cardio following continue carvedilol, disconitnued lisinopril Discontinue valsartan and switch to entresto increase Aldactone to 25 mg daily physical deconditioning to do physical therapy evaluation persistent atrial fibrillation with rvr eliquis carvedilol cardiology recommended no need for RUSTY as rate controlled and CHF improved, can be followed as outpatient history of cva eliquis statin hypokalemia replace, monitor hypernatremia resolved, 144 CKD III stable, montior HTN coreg dvt prophylaxis - eliquis full code reason for continued hospitalization: Mentation still improving not back to his baseline, monitor for recurrence of seizure, physical deconditioning acquiring physical therapy and possible placement, discharge pending safe discharge plan. Quality Stroke Does the patient have a stroke diagnosis?: No VTE Prior VTE?: No VTE Risk Level:: Medical - moderate - high VTE Device Contraindication: Treatment Not Indicated VTE Drug Contraindication: N/A - Med Ordered
--- NOTE | 2021-07-06 16:24 | MHC.CM.PN ---
BRANDIE MARITIME OFFICER NOTE CASE DISCUSSED WITH PHYSICAL THERAPIST , AND RECOMENDS SHORT TERM REHAB, PATIENT HAS [facility] BENEFITS CALLED TO JENNY AT THE [facility] , SHE INFORMED ME THAT ATIENT DIS NOT ELIGEABLE FOR [facility] BENEFITS FOR REHAB. MET WITH PATIENT WITH [employer] HE GAVE ME PERMISSION TO TALK WITH HCP ENA PAYNE [phone]. SHE INFORMED ME THAT PATIENT HAS [employer] INSURANCE , HomeStay PLAN COUNT INCLUDES THE [facility] ID # [id number] [facility] NUMBER [id number], REFERALS WERE SENT OUT TO [facility] AND [facility] TO START DISCHAGRE PLAN -[facility] NET PLAN STR INIATED REFERRALS UNDER THIS CONTRACT HomeStay NUMBER GICEN TO PATIENT REGISTRATION HERE AT [facility] VS HOME WITH RESUMPTION OF HIS CARE TENDERS FOR BERTO RN -PT-
[2021-07-06] MEDS: Atorvastatin Calcium 80 MG TABLET PO (21:41)
[2021-07-06] MEDS: Mirtazapine 7.5 MG TABLET PO (21:41)
[2021-07-07] VITALS (7 sets, daily range): BP systolic 103–163; BP diastolic 62–74; PULSE 47–87; RESP 18–20; TEMP 36.3–37; O2SAT 94–98
[2021-07-07 06:34] LABS: Anion Gap 13 (12-20); Blood Urea Nitrogen 34 mg/dL (9-16); Calcium 8.8 mg/dL (8.4-10.2); Carbon Dioxide 31 mmol/L (22-29); Chloride 104 mmol/L (96-108); Creatinine Clr Calc Pharmacy 50.8; Estimated Glomerular Filt Rate 43; Glucose Random 111 mg/dL (60-115); Potassium 3.8 mmol/L (3.3-5.1); Sodium 144 mmol/L (135-145)
[2021-07-07 06:41] LABS: B Type Natriuretic Peptide 305 pg/mL (<100)
[2021-07-07] MEDS: Sacubitril/Valsartan 49/51 1 TAB TABLET PO ×2 (08:25→19:44)
[2021-07-07] MEDS: Famotidine 20 MG TABLET PO (08:26)
[2021-07-07] MEDS: Bumetanide 1 MG TABLET 2 MG PO (08:30)
[2021-07-07] MEDS: Escitalopram Oxalate 5 MG TABLET PO (08:31)
[2021-07-07] MEDS: Apixaban 5 MG TABLET PO ×2 (08:31→19:44)
[2021-07-07] MEDS: Spironolactone 25 MG TABLET PO (08:31)
[2021-07-07] MEDS: 0.9 % Sodium Chloride Flush 3 ML SYRINGE IVFLUSH ×3 (08:32→19:45)
[2021-07-07] MEDS: carvediloL 6.25 MG TABLET PO ×2 (09:19→19:40)
--- NOTE | 2021-07-07 09:57 | MHC.CM.PN ---
Addendum entered by Gladys Carter RN 07/07/21 09:59: [facility] NOTIFIED VIA [employer] AND VIA PHONE [phone], MESSAGE LEFT W/ANSWERING SERVICE AND CM RECEIVED CALL BACK BERIFYING THEY WILL MAKE SURE PT IS SEEN, PT'S S.O. PHIL HERE AT HOSPITAL AND BELIEVES PT WILL NEED STR AND WILL DISCUSS W/HIM AND GET BACK TO CM. PHIL DOES VERIFY PT HAS SN, SPEECH, OT/PT AT HOME [facility]NA. Original Note: PER HOSPITALIST PT MEDICALLY CLEARED FOR D/C, CM MET W/PT VIA [employer] AND PT IS DECLINING STR AND WANTS TO GO HOME. D/C PLAN: HOME TODAY W/RESUMP OF [facility], PT REPORTS HE WILL CALL HIS EXTRUDER OPERATOR FOR TRANSPORT
[2021-07-07] MEDS: levETIRAcetam in NaCl (iso-os) 500 MG/100 ML PIGGYBACK 400 MG IV ×2 (11:16→21:52)
--- NOTE | 2021-07-07 11:58 | P.PNIM_ITS ---
Subjective Subjective Date of Service: 07/07/21 Interval History: the patient was seen and evaluated this morning Laying in bed, looks comfortable And interactive no reported seizures overnight No reported other overnight events. Systemic review: No fever, chills but reported generalized weakness and feeling sleepy No chest pain, palpitation No shortness of breath or coughing No abdominal pain, nausea or vomiting No urinary symptoms No any rash or wounds Physical Exam Vital Signs: Vital Signs: Last Vital Signs Temp 98.5 F 07/07/21 11:43 Pulse 50 07/07/21 11:43 Resp 18 07/07/21 11:43 BP 119/74 07/07/21 11:43 Pulse Ox 98 07/07/21 11:43 Oxygen Flow Rate 1 07/06/21 15:54 BMI result Body Mass Index 32.2 Const: Other: Constitutional : alert, interactive, not in distress Neck : Normal inspection, Supple Cardiovascular : irregular irregular, S1 S2, trace bilateral lower extremity edema Respiratory : fair bilateral air entry, no crackles, wheezes or rhonchi Gastrointestinal: soft, lax, Normal bowel sounds, Non tender Skin : Warm, Dry Neurological : alert, oriented to self and place but mildly slow , baseline right-sided weakness Objective Data Active Medications Acetaminophen (Acetaminophen 325 Mg Tablet) 650 mg PO Q6H PRN PRN Reason: Pain, Mild (Pain Scale 1-3) Apixaban (Apixaban 5 Mg Tablet) 5 mg PO BID [facility] Last Admin: 07/07/21 08:31 Dose: 5 mg Documented by: RHYS Atorvastatin Calcium (Atorvastatin Calcium 80 Mg Tablet) 80 mg PO BEDTIME [facility] Last Admin: 07/06/21 21:41 Dose: 80 mg Documented by: CASTGUIDO Bumetanide (Bumetanide 1 Mg Tablet) 2 mg PO DAILY [facility]; Protocol Last Admin: 07/07/21 08:30 Dose: 2 mg Documented by: RHYS Carvedilol (Carvedilol 6.25 Mg Tablet) 6.25 mg PO BID [facility]; Protocol Last Admin: 07/07/21 09:19 Dose: 6.25 mg Documented by: RHYS Docusate Sodium (Docusate Sodium 100 Mg Capsule) 100 mg PO DAILY PRN PRN Reason: Constipation Escitalopram Oxalate (Escitalopram Oxalate 5 Mg Tablet) 5 mg PO DAILY [facility] Last Admin: 07/07/21 08:31 Dose: 5 mg Documented by: RHYS Famotidine (Famotidine 20 Mg Tablet) 20 mg PO DAILY [facility] Last Admin: 07/07/21 08:26 Dose: 20 mg Documented by: RHYS Levetiracetam (Keppra) 500 mg in 100 mls @ 400 mls/hr IV Q12H [facility] Last Infusion: 07/07/21 11:46 Dose: 400 mls/hr Documented by: RHYS Lorazepam (Lorazepam 2 Mg/Ml Vial) 2 mg IVPUSH ONCE PRN PRN Reason: Seizures Mirtazapine (Mirtazapine 7.5 Mg Tablet) 7.5 mg PO BEDTIME [facility] Last Admin: 07/06/21 21:41 Dose: 7.5 mg Documented by: JAZMYN Ondansetron HCl (Ondansetron Hcl 4 Mg/2 Ml Vial) 4 mg IVPUSH Q8H PRN PRN Reason: Nausea and Vomiting Sacubitril/Valsartan (Sacubitril/Valsartan 49/51 1 Tab Tablet) 1 tab PO BID [facility]; Protocol Last Admin: 07/07/21 08:25 Dose: 1 tab Documented by: RHYS Sodium Chloride (0.9 % Sodium Chloride Flush 3 Ml Syringe) 3 ml IVFLUSH QSHIFT [facility] Last Admin: 07/07/21 08:32 Dose: 3 ml Documented by: RHYS Spironolactone (Spironolactone 25 Mg Tablet) 25 mg PO DAILY [facility]; Protocol Last Admin: 07/07/21 08:31 Dose: 25 mg Documented by: RHYS Labs CBC & Chem 7: 07/06/21 05:40 07/07/21 05:51 Labs: Laboratory Results - last 24 hr 07/07/21 07/07/21 05:51 05:51 Anion Gap 13 Estim Creat Clear Calc 50.8 Estimated GFR 43 Random Glucose 111 Calcium 8.8 B-Natriuretic Peptide 305 H Assessment and Plan (1) New onset seizure: Status: Acute (2) Acute exacerbation of CHF (congestive heart failure): Status: Acute Plan 60M presented with sob new onset seizures no recurrence overnight Has history of underlying CVA CT scan negative for any acute findings continue with Keppra pending EEG neurology input appreciated acute on chronic systolic chf (non ischemic) s/p aicd continue Bumex daily, Lasix drip discontinue cardio following continue carvedilol, disconitnued lisinopril Discontinue valsartan and switch to entresto increase Aldactone to 25 mg daily physical deconditioning to do physical therapy evaluation persistent atrial fibrillation with rvr eliquis carvedilol cardiology recommended no need for RUSTY as rate controlled and CHF improved, can be followed as outpatient history of cva eliquis statin hypokalemia replace, monitor hypernatremia resolved, 144 CKD III stable, montior HTN coreg dvt prophylaxis - eliquis full code reason for continued hospitalization: Pending placement Quality Stroke Does the patient have a stroke diagnosis?: No VTE Prior VTE?: No VTE Risk Level:: Medical - moderate - high VTE Device Contraindication: Treatment Not Indicated VTE Drug Contraindication: N/A - Med Ordered
--- NOTE | 2021-07-07 15:11 | MHC.CM.PN ---
CM MET W/PT'S S.O./HCP ENA AND HYDRAULIC ASSEMBLER TO DISCUSS HOME HEALTH SERVICES PT HAS NONE AT THIS TIME OTHER THAN [facility], ENA GIVEN HANDOUTS FOR [facility] AND [facility], REFERRAL HAD BEEN PLACED TO [facility] S.O. 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 REPORTS SHE ALREADY HAS AN APPT W/[facility] FOR PT. HOSPITALIST MET W/PT AND ENA AT BEDSIDE TO DISCUSS PLAN PT IS UNABLE TO EVEN SIT UP W/OUT ASSISTANCE AND HAD DECLINED TO STAND W/PT, PER HOSPITALIST PT IS NOW AGREEING TO STR AND WILL BE HELD UNTIL FRIDAY WHEN INSURANCE WILL GIVE AUTH. ENA REPORTS SHE WOULD LIKE PT TO STAY IN [place] SO SHE CAN VISIT AND SHE HAS TO TAKE PUBLIC TRANSPORTATION, [facility] ONLY BED OFFER AT THIS TIME, WILL REVISIT W/NATALIA WALKER ON FRIDAY. D/C PLAN: STR W/BLS FOR TRANSPORT
[2021-07-07] MEDS: Mirtazapine 7.5 MG TABLET PO (19:44)
[2021-07-07] MEDS: Atorvastatin Calcium 80 MG TABLET PO (19:44)
[2021-07-08] VITALS (7 sets, daily range): BP systolic 116–142; BP diastolic 58–90; PULSE 52–69; RESP 16–18; TEMP 35.9–36.9; O2SAT 91–100; BMI 31.9
[2021-07-08] MEDS: Spironolactone 25 MG TABLET PO (08:01)
[2021-07-08] MEDS: carvediloL 6.25 MG TABLET PO ×2 (08:01→21:23)
[2021-07-08] MEDS: Sacubitril/Valsartan 49/51 1 TAB TABLET PO ×2 (08:01→21:23)
[2021-07-08] MEDS: Famotidine 20 MG TABLET PO (08:01)
[2021-07-08] MEDS: Escitalopram Oxalate 5 MG TABLET PO (08:01)
[2021-07-08] MEDS: Bumetanide 1 MG TABLET 2 MG PO (08:01)
[2021-07-08] MEDS: Apixaban 5 MG TABLET PO ×2 (08:01→21:23)
[2021-07-08] MEDS: 0.9 % Sodium Chloride Flush 3 ML SYRINGE IVFLUSH ×2 (08:01→15:48)
[2021-07-08] MEDS: levETIRAcetam in NaCl (iso-os) 500 MG/100 ML PIGGYBACK 400 MG IV (09:34)
--- NOTE | 2021-07-08 10:19 | HO.PM.IMPN ---
Subjective Subjective Date of Service: 07/08/21 Interval History: the patient was seen and evaluated this morning Laying in bed, looks comfortable And interactive no reported seizures overnight No reported other overnight events. Systemic review: No fever, chills but reported generalized weakness and feeling sleepy No chest pain, palpitation No shortness of breath or coughing No abdominal pain, nausea or vomiting No urinary symptoms No any rash or wounds Physical Exam Vital Signs: Vital Signs: Last Vital Signs Temp 98.5 F 07/08/21 07:25 Pulse 63 07/08/21 07:25 Resp 18 07/08/21 07:25 BP 125/90 H 07/08/21 07:25 Pulse Ox 100 07/08/21 07:25 Oxygen Flow Rate 1 07/06/21 15:54 BMI result Body Mass Index 31.9 Const: Other: Constitutional : alert, interactive, not in distress Neck : Normal inspection, Supple Cardiovascular : irregular irregular, S1 S2, trace bilateral lower extremity edema Respiratory : fair bilateral air entry, no crackles, wheezes or rhonchi Gastrointestinal: soft, lax, Normal bowel sounds, Non tender Skin : Warm, Dry Neurological : alert, oriented to self and place but mildly slow , baseline right-sided weakness Objective Data Active Medications Acetaminophen (Acetaminophen 325 Mg Tablet) 650 mg PO Q6H PRN PRN Reason: Pain, Mild (Pain Scale 1-3) Apixaban (Apixaban 5 Mg Tablet) 5 mg PO BID [facility] Last Admin: 07/08/21 08:01 Dose: 5 mg Documented by: YANET Atorvastatin Calcium (Atorvastatin Calcium 80 Mg Tablet) 80 mg PO BEDTIME [facility] Last Admin: 07/07/21 19:44 Dose: 80 mg Documented by: CASTGUIDO Bumetanide (Bumetanide 1 Mg Tablet) 2 mg PO DAILY [facility]; Protocol Last Admin: 07/08/21 08:01 Dose: 2 mg Documented by: YANET Carvedilol (Carvedilol 6.25 Mg Tablet) 6.25 mg PO BID [facility]; Protocol Last Admin: 07/08/21 08:01 Dose: 6.25 mg Documented by: YANET Docusate Sodium (Docusate Sodium 100 Mg Capsule) 100 mg PO DAILY PRN PRN Reason: Constipation Escitalopram Oxalate (Escitalopram Oxalate 5 Mg Tablet) 5 mg PO DAILY [facility] Last Admin: 07/08/21 08:01 Dose: 5 mg Documented by: YANET Famotidine (Famotidine 20 Mg Tablet) 20 mg PO DAILY [facility] Last Admin: 07/08/21 08:01 Dose: 20 mg Documented by: YANET Levetiracetam (Keppra) 500 mg in 100 mls @ 400 mls/hr IV Q12H [facility] Last Infusion: 07/08/21 09:59 Dose: 0 mls/hr Documented by: YANET Lorazepam (Lorazepam 2 Mg/Ml Vial) 2 mg IVPUSH ONCE PRN PRN Reason: Seizures Mirtazapine (Mirtazapine 7.5 Mg Tablet) 7.5 mg PO BEDTIME [facility] Last Admin: 07/07/21 19:44 Dose: 7.5 mg Documented by: JAZMYN Ondansetron HCl (Ondansetron Hcl 4 Mg/2 Ml Vial) 4 mg IVPUSH Q8H PRN PRN Reason: Nausea and Vomiting Sacubitril/Valsartan (Sacubitril/Valsartan 49/51 1 Tab Tablet) 1 tab PO BID [facility]; Protocol Last Admin: 07/08/21 08:01 Dose: 1 tab Documented by: YANET Sodium Chloride (0.9 % Sodium Chloride Flush 3 Ml Syringe) 3 ml IVFLUSH QSHIFT [facility] Last Admin: 07/08/21 08:01 Dose: 3 ml Documented by: YANET Spironolactone (Spironolactone 25 Mg Tablet) 25 mg PO DAILY [facility]; Protocol Last Admin: 07/08/21 08:01 Dose: 25 mg Documented by: YANET Labs CBC & Chem 7: 07/06/21 05:40 07/07/21 05:51 Assessment and Plan (1) New onset seizure: Status: Acute (2) Uncontrolled hypertension: Status: Acute (3) Acute exacerbation of CHF (congestive heart failure): Status: Acute Plan 60M presented with sob new onset seizures no recurrence overnight Has history of underlying CVA CT scan negative for any acute findings continue with Keppra pending EEG reading neurology input appreciated acute on chronic systolic chf (non ischemic) s/p aicd continue Bumex daily, Lasix drip discontinue cardio following continue carvedilol, disconitnued lisinopril Discontinue valsartan and switch to entresto increase Aldactone to 25 mg daily physical deconditioning to do physical therapy evaluation persistent atrial fibrillation with rvr eliquis carvedilol cardiology recommended no need for RUSTY as rate controlled and CHF improved, can be followed as outpatient history of cva eliquis statin hypokalemia replace, monitor hypernatremia resolved, 144 CKD III stable, montior HTN coreg dvt prophylaxis - eliquis full code reason for continued hospitalization: Pending placement Quality Stroke Does the patient have a stroke diagnosis?: No VTE Prior VTE?: No VTE Risk Level:: Medical - moderate - high VTE Device Contraindication: Treatment Not Indicated VTE Drug Contraindication: N/A - Med Ordered
[2021-07-08] MEDS: Acetaminophen 325 MG TABLET 650 MG PO (14:34)
[2021-07-08] MEDS: levETIRAcetam 500 MG TABLET PO (21:23)
[2021-07-08] MEDS: Atorvastatin Calcium 80 MG TABLET PO (21:23)
[2021-07-08] MEDS: Mirtazapine 7.5 MG TABLET PO (21:23)
[2021-07-09] VITALS (7 sets, daily range): BP systolic 99–131; BP diastolic 61–81; PULSE 47–78; RESP 17–18; TEMP 36–36.8; O2SAT 98
[2021-07-09] MEDS: 0.9 % Sodium Chloride Flush 3 ML SYRINGE IVFLUSH ×3 (00:35→15:52)
[2021-07-09] MEDS: Apixaban 5 MG TABLET PO ×2 (09:26→20:50)
[2021-07-09] MEDS: Escitalopram Oxalate 5 MG TABLET PO (09:26)
[2021-07-09] MEDS: Sacubitril/Valsartan 49/51 1 TAB TABLET PO ×2 (09:26→20:50)
[2021-07-09] MEDS: levETIRAcetam 500 MG TABLET PO ×2 (09:26→20:50)
[2021-07-09] MEDS: Spironolactone 25 MG TABLET PO (09:26)
[2021-07-09] MEDS: carvediloL 6.25 MG TABLET PO ×2 (09:26→20:50)
[2021-07-09] MEDS: Bumetanide 1 MG TABLET 2 MG PO (09:26)
[2021-07-09] MEDS: Famotidine 20 MG TABLET PO (09:26)
--- NOTE | 2021-07-09 11:38 | PM.DS ---
DS: Providers Provider Date of Service: 07/09/21 Date of admission: 07/02/21 22:17 Primary care physician: Jessica Alan MD Consults: 07/02/21 22:16 Consult to Cardiology Routine Consulting Provider: Naeem Haque Reason for consultation: CHF, New onset AFIB 07/05/21 09:51 Consult to Neurology Routine Consulting Provider: [facility] Reason for consultation: new onset seizure, clearance for RUSTY per cardiology team(anesthesia) DS: Diagnosis Discharge Diagnosis (1) New onset seizure: Status: Acute (2) Uncontrolled hypertension: Status: Acute (3) Acute exacerbation of CHF (congestive heart failure): Status: Acute (4) Persistent atrial fibrillation: Status: Acute (5) Hypokalemia: Status: Acute (6) Hypernatremia: Status: Acute DS: Summary Hospital Course Hospital Course: admission note HPI ?60-year-old male with past medical history of CVA x2, ? nonischemic cardiomyopathy status post AICD placement, CKD stage 2, hypertension, who presents to the hospital with complaints of shortness of breath as well as lower extremity edema.? Patient was discharged from the rehab about 2 weeks ago for rehabilitation for his 2nd CVA that he had in March.? 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 his CVA and therefore his partner at bedside? Who is also his caregiver tells me most of his history.? Patient and his partner report that he has been experiencing shortness of breath, no cough or sputum production, he has had palpitations with no chest pain, no nausea or vomiting, no fever or chills, no diarrhea constipation, no urinary symptoms.? He has had lower extremity edema for the past week? Progressively worsening.? Orthopnea and PND.? Increased work of breathing on minimal activity.? Denies any urinary symptoms. ? On arrival to the ED patient vitals significant for temp of 97.6 degrees, heart rate of 1 5, respiratory rate of 26, blood pressure of 1.3/114, satting 99% on room air.? Patient heart rate did not increase to 110s to 130s, found to? being AFib with RVR.? On asking further from the patient and his partner at bedside they report the patient? has never been told to have AFib and he is on Eliquis for his history of CVA. ?labs are significant for WBC count of 5.9, hemoglobin of 11.2, hematocrit 38.8, INR of 2.6, creatinine of 1.68 which is around his baseline, total bili of 1.3,? initial troponin of 51.4, decreased to 49.3, BNP of 2067, chest x-ray? shows no acute? intrathoracic disease. ?patient and his partner reports that he used to be on a water pill but they are not sure why it was discontinued or by who ? And that he is currently not taking any Lasix? Or any other diuretic.\ ?patient given IV Lasix, ? Placed on BiPAP for increased work of breathing while in the ED but will be admitted to the floor for further management given improvement in his respiratory rate. Hospital course the patient was admitted for treatment of difficulty breathing found to have acute on chronic systolic CHF exacerbation treated with Lasix drip as cardiology evaluated the patient with good response over the course of hospital stay as his dyspnea improved significantly and he was weaned off the oxygen. Home medications change with changing his medications to carvedilol, Entresto and Aldactone. He will continue to follow with Cardiology as outpatient. Aided also developed atrial fibrillation with rapid ventricular response requiring 2 doses of IV digoxin. Cardiology was sing about doing RUSTY with cardioversion but given significant improvement of heart failure they decided to postpone that if needed can be evaluated as outpatient. During the hospital stay he had an incident of a seizure that was witnessed at the bedside. He has a history of underlying CVA which increase his risk. Evaluated by Neurology team who recommended starting Keppra. He is on Keppra 500 mg twice daily with no recurrence of seizure activity during the hospital stay. Evaluated by physical therapy team and noticed to have physical deconditioning requiring SNF placement. Noticed to have hypernatremia and hypokalemia which both were treated and improved back to normal baseline. Start Entresto, Aldactone as prescribed Start torsemide as water pill Discontinue lisinopril Start Keppra for seizures To repeat blood test next week Time Spent with Patient Time attestation: Total time spent providing and/or coordinating discharge services: Discharge coordination time: Greater than 30 minutes Quality: Stroke Does the patient have a stroke diagnosis?: No Physical Exam Vital Signs: Vital Signs: Last Vital Signs Temp 97.6 F 07/09/21 07:20 Pulse 78 07/09/21 09:31 Resp 18 07/09/21 07:20 BP 131/77 07/09/21 09:27 Pulse Ox 98 07/09/21 09:27 Oxygen Flow Rate 1 07/06/21 15:54 BMI result Body Mass Index 31.9 Const: Other: Constitutional : alert, interactive, not in distress Neck : Normal inspection, Supple Cardiovascular : irregular irregular, S1 S2, trace bilateral lower extremity edema Respiratory : fair bilateral air entry, no crackles, wheezes or rhonchi Gastrointestinal: soft, lax, Normal bowel sounds, Non tender Skin : Warm, Dry Neurological : alert, oriented to self and place but mildly slow , baseline right-sided weakness Discharge Plan Discharge Patient Disposition: er SNF Discharge Diagnosis: Acute heart failure exacerbation New onset seizure Referrals: [facility] [Other] - 1 Week (REFERRAL SENT TO [facility] FOR HOME HEALTH SERVICES, THEY SHOULD BE CONTACTING YOU ONCE YOU ARE HOME, IF YOU DO NOT RECEIVE A CALL PLEASE CALL THEM AT [phone].) [facility] [Outside] - 1 Day (RESUMPTION OF CARE) [facility] [Outside] - 1 Week (SHORT TERM REHAB) Jessica Alan MD [Primary Care Provider] - 1 Week Discharge Medications: New Entresto 49-51 mg Tablet 1 tab PO BID Qty: 30 0RF Protocol: Hold for SBP< HOLD for SBP < : 90 levetiracetam 500 mg Tablet 500 mg PO BID 30 Days Qty: 60 0RF spironolactone 25 mg Tablet 25 mg PO DAILY 30 Days Qty: 30 0RF Protocol: Hold for SBP< HOLD for SBP < : 90 bumetanide 1 mg Tablet 2 mg PO DAILY 30 Days Qty: 60 0RF Protocol: Hold for SBP< HOLD for SBP < : 90 Continued atorvastatin 80 mg tablet 80 mg PO BEDTIME 0RF carvedilol 6.25 mg tablet 6.25 mg PO BID 0RF citalopram 10 mg tablet 10 mg PO DAILY 0RF famotidine 20 mg tablet 20 mg PO DAILY 0RF mirtazapine 7.5 mg tablet 7.5 mg PO DAILY 0RF Eliquis 5 mg tablet 5 mg PO BID 0RF Discontinued lisinopril 5 mg tablet 5 mg PO DAILY 0RF Discharge Orders: Discharge Order (Routine); Ordered 07/09/21 Ordered By: Stephen Turk Diet: advance to usual diet Activity on Discharge: As tolerated Stand Alone Forms: Patient Portal Discharge page Other Ambulatory Orders: Basic Metabolic Panel (Routine) Timeframe: 1 Week Facility: [facility] - Location: Laboratory Ordered By: Stephen Turk Care Plan Goals: Read below Health Concerns: Read below Plan of Treatment: Read below Assessment: you were the hospital for evaluation of difficulty breathing. Found to have heart failure exacerbation treated with IV Lasix and evaluated by Cardiology team who adjusted your home medications. You were weaned off the oxygen and started physical therapy. You developed a seizure during the hospital stay evaluated by Neurology and treated with seizure medication called Keppra with good response as no recurrence of seizure happened. Start Entresto, Aldactone as prescribed Start torsemide as water pill Discontinue lisinopril Start Keppra for seizures To repeat blood test next week Discharge Date/Time: 07/09/21 21:50
[2021-07-09 11:39] LABS: COVID-19 Test Negative (Negative)
--- NOTE | 2021-07-09 13:46 | MHC.CM.PN ---
PT'S HCP/RIVERA CONTACTED VIA PHONE W/BACK HANGER TO GO OVER DCP, REFERRALS RESENT TO [place] [facility] W./NO BED OFFERS, PER RIVERA'S REQUEST REFERRAL SENT TO SNF'S IN [facility] W/NO BED OFFERS/ADMISSION HOLD AND NOT CONTRACTED FOR ANSWERS, RIVERA AWARE [facility] IS ONLY BED OFFER AND SHE IS AGREEABLE OF PLAN TO SEND HIME THERE ONCE INSURANCE GIVES AUTH AND ANTIC LATER TODAY. RIVERA PROVIDED W/NAME, ADDRESS AND PHONE NUMBER OF FACILITY. D/C PLAN: [facility] FOR STR, [facility] FOR BLS TRANSPORT
--- NOTE | 2021-07-09 14:31 | HO.PM.IMPN ---
Subjective Subjective Date of Service: 07/09/21 Interval History: the patient was seen and evaluated this morning Laying in bed, looks comfortable And interactive no reported seizures overnight No reported other overnight events. Systemic review: No fever, chills but reported generalized weakness and feeling sleepy No chest pain, palpitation No shortness of breath or coughing No abdominal pain, nausea or vomiting No urinary symptoms No any rash or wounds Physical Exam Vital Signs: Vital Signs: Last Vital Signs Temp 98.2 F 07/09/21 11:44 Pulse 62 07/09/21 11:44 Resp 18 07/09/21 11:44 BP 113/81 07/09/21 11:44 Pulse Ox 98 07/09/21 11:44 Oxygen Flow Rate 1 07/06/21 15:54 BMI result Body Mass Index 31.9 Const: Other: Constitutional : alert, interactive, not in distress Neck : Normal inspection, Supple Cardiovascular : irregular irregular, S1 S2, trace bilateral lower extremity edema Respiratory : fair bilateral air entry, no crackles, wheezes or rhonchi Gastrointestinal: soft, lax, Normal bowel sounds, Non tender Skin : Warm, Dry Neurological : alert, oriented to self and place but mildly slow , baseline right-sided weakness Objective Data Active Medications Acetaminophen (Acetaminophen 325 Mg Tablet) 650 mg PO Q6H PRN PRN Reason: Pain, Mild (Pain Scale 1-3) Last Admin: 07/08/21 14:34 Dose: 650 mg Documented by: YANET Apixaban (Apixaban 5 Mg Tablet) 5 mg PO BID [facility] Last Admin: 07/09/21 09:26 Dose: 5 mg Documented by: MARISELA Atorvastatin Calcium (Atorvastatin Calcium 80 Mg Tablet) 80 mg PO BEDTIME [facility] Last Admin: 07/08/21 21:23 Dose: 80 mg Documented by: HEMA Bumetanide (Bumetanide 1 Mg Tablet) 2 mg PO DAILY [facility]; Protocol Last Admin: 07/09/21 09:26 Dose: 2 mg Documented by: MARISELA Carvedilol (Carvedilol 6.25 Mg Tablet) 6.25 mg PO BID [facility]; Protocol Last Admin: 07/09/21 09:26 Dose: 6.25 mg Documented by: MARISELA Docusate Sodium (Docusate Sodium 100 Mg Capsule) 100 mg PO DAILY PRN PRN Reason: Constipation Escitalopram Oxalate (Escitalopram Oxalate 5 Mg Tablet) 5 mg PO DAILY [facility] Last Admin: 07/09/21 09:26 Dose: 5 mg Documented by: MARISELA Famotidine (Famotidine 20 Mg Tablet) 20 mg PO DAILY [facility] Last Admin: 07/09/21 09:26 Dose: 20 mg Documented by: MARISELA Levetiracetam (Levetiracetam 500 Mg Tablet) 500 mg PO BID [facility] Last Admin: 07/09/21 09:26 Dose: 500 mg Documented by: MARISELA Lorazepam (Lorazepam 2 Mg/Ml Vial) 2 mg IVPUSH ONCE PRN PRN Reason: Seizures Mirtazapine (Mirtazapine 7.5 Mg Tablet) 7.5 mg PO BEDTIME [facility] Last Admin: 07/08/21 21:23 Dose: 7.5 mg Documented by: HEMA Ondansetron HCl (Ondansetron Hcl 4 Mg/2 Ml Vial) 4 mg IVPUSH Q8H PRN PRN Reason: Nausea and Vomiting Sacubitril/Valsartan (Sacubitril/Valsartan 49/51 1 Tab Tablet) 1 tab PO BID [facility]; Protocol Last Admin: 07/09/21 09:26 Dose: 1 tab Documented by: MARISELA Sodium Chloride (0.9 % Sodium Chloride Flush 3 Ml Syringe) [address] [facility] Last Admin: 07/09/21 09:26 Dose: 3 ml Documented by: MARISELA Spironolactone (Spironolactone 25 Mg Tablet) 25 mg PO DAILY [facility]; Protocol Last Admin: 07/09/21 09:26 Dose: 25 mg Documented by: MARISELA Labs CBC & Chem 7: 07/06/21 05:40 07/07/21 05:51 Labs: Laboratory Results - last 24 hr 07/09/21 10:40 COVID-19 ([facility]) Negative COVID-19 Clin Com See Note Assessment and Plan (1) Hypernatremia: Status: Acute (2) Hypokalemia: Status: Acute (3) New onset seizure: Status: Acute (4) Uncontrolled hypertension: Status: Acute (5) Acute exacerbation of CHF (congestive heart failure): Status: Acute Plan 60M presented with sob new onset seizures no recurrence overnight Has history of underlying CVA CT scan negative for any acute findings continue with Keppra pending EEG reading neurology input appreciated acute on chronic systolic chf (non ischemic) s/p aicd continue Bumex daily, Lasix drip discontinue cardio following continue carvedilol, disconitnued lisinopril Discontinue valsartan and switch to entresto increase Aldactone to 25 mg daily physical deconditioning to do physical therapy evaluation persistent atrial fibrillation with rvr eliquis carvedilol cardiology recommended no need for RUSTY as rate controlled and CHF improved, can be followed as outpatient history of cva eliquis statin hypokalemia replace, monitor hypernatremia resolved, 144 CKD III stable, montior HTN coreg dvt prophylaxis - eliquis full code reason for continued hospitalization: Pending placement Quality Stroke Does the patient have a stroke diagnosis?: No VTE Prior VTE?: No VTE Risk Level:: Medical - moderate - high VTE Device Contraindication: Treatment Not Indicated VTE Drug Contraindication: N/A - Med Ordered
[2021-07-09] MEDS: Atorvastatin Calcium 80 MG TABLET PO (20:50)
[2021-07-09] MEDS: Mirtazapine 7.5 MG TABLET PO (20:50)
== END 2021-07-09 21:50 | disposition skilled nursing facility (03) | DRG 291 ==
LOC: HO.ED 19:59 → HO.EDOVER 22:35 → HO.S3 07-03 08:59
PROVIDERS: Internal Medicine; Admitting Provider Internal Medicine; Emergency Provider Emergency Medicine; PCP Internal Medicine; Visit Provider Student in an Organized Health Care Education/Training Program
DX: I13.0 Hypertensive heart and chronic kidney disease with heart failure and stage 1 through stage 4 chronic kidney disease, or unspecified chronic kidney disease (principal); I50.23 Acute on chronic systolic (congestive) heart failure; I48.19 Other persistent atrial fibrillation; E87.0 Hyperosmolality and hypernatremia; I69.851 Hemiplegia and hemiparesis following other cerebrovascular disease affecting right dominant side; I69.320 Aphasia following cerebral infarction; I42.8 Other cardiomyopathies; E87.6 Hypokalemia; N18.2 Chronic kidney disease, stage 2 (mild); R56.9 Unspecified convulsions; Z95.810 Presence of automatic (implantable) cardiac defibrillator; Z20.822 Contact with and (suspected) exposure to COVID-19; Z79.01 Long term (current) use of anticoagulants; Z79.899 Other long term (current) drug therapy
CPT/HCPCS: 36415; 70450; 71045; 80048; 80076; 83690; 83735; 83880; 84484; 85025; 85027; 85610; 87635; 93005; 93306; 94660; 94799; 95816; 96374; 96375; 97110; 97162; 99285; 99291; J1160; J1940; J1953; J2060; J3475

== ENCOUNTER 2021-09-08 20:57 | Inpatient (IN) | payer OTHER, SELFPAY ==
[2021-09-08] VITALS (10 sets, daily range): BP systolic 124–156; BP diastolic 64–106; PULSE 98–137; RESP 16–20; TEMP 36.6–36.7; O2SAT 94–100; BMI 29.7
--- NOTE | 2021-09-08 | ECG_ITS ---
Test Reason : WEAKNESS Blood Pressure : / mmHG Vent. Rate : 118 BPM Atrial Rate : 000 BPM P-R Int : 000 ms QRS Dur : 126 ms QT Int : 342 ms P-R-T Axes : 000 -24 151 degrees QTc Int : 479 ms Atrial fibrillation with rapid ventricular response with premature ventricular or aberrantly conducted complexes Non-specific intra-ventricular conduction block Cannot rule out Septal infarct (cited on or before 02-JUL-2021) T wave abnormality, consider lateral ischemia Abnormal ECG When compared with ECG of 02-JUL-2021 19:39, No significant change was found Referred By: Johnson Vega Electronically Signed By:KAILYN MUHAMMAD MD
--- NOTE | ~2021-09-08 | XR_ITS ---
EXAMINATION: XR CHEST CLINICAL INFORMATION: Altered mental status COMPARISON: 07/02/2021 TECHNIQUE: Frontal view of the chest was obtained. FINDINGS: Left chest wall pacer is unchanged. The lungs are well expanded. There is no focal consolidation, edema, or effusion. No pneumothorax. The cardiomediastinal silhouette is within normal limits. No acute osseous abnormality. XR/XR chest 1V IMPRESSION: No acute pulmonary finding.
[2021-09-08 21:08] LABS: Glucose, Whole Blood 182 mg/dL (60-115)
--- NOTE | 2021-09-08 21:15 | ED_ITS ---
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 and seizures on Keppra brought by EMS for increased weakness as called as patient was too weak to stand up to go to bathroom was feeling very dizzy denied any chest pain or palpitation patient usually walk with walker and able to manage himself Related Data Home Medications Medication Instructions Recorded Confirmed apixaban 5 mg tablet (Eliquis) 5 mg PO BID 07/02/21 07/02/21 atorvastatin 80 mg tablet 80 mg PO BEDTIME 07/02/21 07/02/21 carvedilol 6.25 mg tablet 6.25 mg PO BID 07/02/21 07/02/21 citalopram 10 mg tablet 10 mg PO DAILY 07/02/21 07/02/21 famotidine 20 mg tablet 20 mg PO DAILY 07/02/21 07/02/21 mirtazapine 7.5 mg tablet 7.5 mg PO DAILY 07/02/21 07/02/21 Previous Rx's Medication Instructions Recorded bumetanide 1 mg tablet 2 mg PO DAILY 30 Days #60 tab 07/09/21 levetiracetam 500 mg tablet 500 mg PO BID 30 Days #60 tab 07/09/21 sacubitril 49 mg-valsartan 51 mg 1 tab PO BID #30 tab 07/09/21 tablet (Entresto) spironolactone 25 mg tablet 25 mg PO DAILY 30 Days #30 tab 07/09/21 Allergies Allergy/AdvReac Type Severity Reaction Status Date / Time No Known Allergies Allergy Verified 07/03/21 10:58 [No Known Allergies*] Review of Systems Review of Systems: Yes all other systems are reviewed and are negative [facility]LY [facility] Past Medical History Medical History Cardiac defibrillator in place CHF (congestive heart failure) CHF (congestive heart failure) Chronic systolic heart failure CKD (chronic kidney disease), stage II Embolism of kidney Gallstones Hypertension NICM (nonischemic cardiomyopathy) NSVT (nonsustained ventricular tachycardia) Persistent atrial fibrillation Renal infarct Surgical History History of cardiac defibrillator placement Family History Family History Other CAD (coronary artery disease) Social History Social History Household Members: Spouse Housing: House Do you presently have visiting nurse or other home services: No Alcohol intake: never Patient Tobacco Use Status: Never used Tobacco Advance Directives: Yes Advance Directives on File: Yes Advance Directives Date on File: 10/18/20 service: Yes Current occupational status: employed Physical Exam Vital Signs: Vital Signs: Last Vital Signs Temp 98.0 F 09/08/21 22:41 Pulse 109 H 09/08/21 23:00 Resp 16 09/08/21 22:41 BP 130/64 09/08/21 23:00 Pulse Ox 98 09/08/21 22:41 BMI result Body Mass Index 29.7 Appearance: Alert. Oriented X3. No acute distress. Eyes: PERRLA, No Nystagmus ENT: Pharynx normal. Oral Mucosa moist Neck: Normal inspection. Neck supple. CVS: Tachycardic irregular irregular Pulses normal. Respiratory: No respiratory distress. Equal air entry bilateral, no wheezing/rales/rhonchi Abdomen: Soft and nontender. Bowel sounds are present, no mass palpable, no CVA tenderness Skin: Skin warm and dry. Normal skin color. Normal skin turgor. Extremities: No lower extremity edema. No calf tenderness Neuro: Oriented X 3. Residual right hemiparesis with aphasia, No cerebellar signs , cranial nerves II-XII intact MDM - Weakness MDM Narrative Medical decision making narrative: Patient with atrial fibrillation on carvedilol came for increased dizziness and weakness noticed to have febrile AFib with fast ventricular rate responded to IV Lopressor but increases on ambulation to 140s resting heart rate is 99. Will admit patient for a increased weakness AFib with fast ventricular rate Medical Records Attestation: I reviewed the patient's medical records. Lab Data Attestation: I reviewed the patient's lab results. Result diagrams: 09/08/21 21:31 09/08/21 21:31 Labs: Lab Results 09/08/21 09/08/21 09/08/21 Range/Units 21:03 21:26 21:31 WBC 8.1 (4.8-10.8) X10*3/uL RBC 4.14 L (4.60-5.80) X10*6/uL Hgb 12.8 L (14.0-18.0) g/dl Hct 38.5 L (42.0-52.0) % MCV 93.0 (80.0-98.0) fL MCH 30.9 (27.0-33.0) pg MCHC 33.2 (31.0-36.0) g/dl RDW 13.9 (11.0-16.0) % Plt Count 340 (160-400) X10*3/uL MPV 10.6 (9.4-12.4) fL Immature Gran % (Auto) 0.5 H (0.0-0.4) % Neut % (Auto) 55.5 (45-73) % Lymph % (Auto) 33.2 (20-40) % [place] % (Auto) 8.5 (2-11) % Eos % (Auto) 1.6 (0-4) % Baso % (Auto) 0.7 (0-2) % Lymph # (Auto) 2.7 (1.2-4.9) X10*3/uL [place] # (Auto) 0.7 (0.1-1.2) X10*3/uL Eos # (Auto) 0.1 (0.0-0.4) X10*3/uL Baso # (Auto) 0.1 (0.0-0.2) X10*3/uL Abs Immat Gran (auto) 0.04 H (0.00-0.03) X10*3/uL Absolute Neuts (auto) 4.5 (2.0-8.3) x10*3/uL Absolute Nucleated RBC 0.000 (0.0-0.012) X10*3/uL Nucleated RBC % (auto) 0.0 (0.0-0.2) /100WBC PT (9.9-13.0) SEC INR (0.9-1.1) APTT (24.1-38.0) SEC Sodium (135-145) mmol/L Potassium (3.3-5.1) mmol/L Chloride (96-108) mmol/L Carbon Dioxide (22-29) mmol/L Anion Gap (12-20) BUN (9-16) mg/dL Creatinine (0.5-1.4) mg/dL Estim Creat Clear Calc Estimated GFR POC Glucose 182 H (60-115) mg/dL Random Glucose (60-115) mg/dL Calcium (8.4-10.2) mg/dL Total Bilirubin (0.0-1.0) mg/dL AST (5-37) U/L ALT (0-40) U/L Alkaline Phosphatase (39-117) U/L Troponin I High Sens (<3.5-35.0) ng/L Total Protein (6.5-8.0) g/dL Albumin (3.5-5.0) g/dL Urine Color Urine Appearance Urine pH (5.0-8.0) Ur Specific [place] (1.005-1.025) Urine Protein (NEG-TRACE) MG/DL Urine Glucose (UA) (NEG) MG/DL Urine Ketones (NEG) MG/DL Urine Blood (NEG) Urine Nitrite (NEG) Ur Leukocyte Esterase (NEG) Urine RBC (0) /HPF Urine WBC (0-4) /HPF Ur Squamous Epith Cells /LPF Ur Renal Epithelial Cell /LPF Urine Bacteria /LPF Hyaline Casts /LPF Granular Casts /LPF WBC Casts /LPF Urine Mucus /LPF COVID-19 ([facility]) Negative (Negative) COVID-19 Clin Com See Note 09/08/21 09/08/21 09/08/21 Range/Units 21:31 21:31 21:31 WBC (4.8-10.8) X10*3/uL RBC (4.60-5.80) X10*6/uL Hgb (14.0-18.0) g/dl Hct (42.0-52.0) % MCV (80.0-98.0) fL MCH (27.0-33.0) pg MCHC (31.0-36.0) g/dl RDW (11.0-16.0) % Plt Count (160-400) X10*3/uL MPV (9.4-12.4) fL Immature Gran % (Auto) (0.0-0.4) % Neut % (Auto) (45-73) % Lymph % (Auto) (20-40) % [place] % (Auto) (2-11) % Eos % (Auto) (0-4) % Baso % (Auto) (0-2) % Lymph # (Auto) (1.2-4.9) X10*3/uL [place] # (Auto) (0.1-1.2) X10*3/uL Eos # (Auto) (0.0-0.4) X10*3/uL Baso # (Auto) (0.0-0.2) X10*3/uL Abs Immat Gran (auto) (0.00-0.03) X10*3/uL Absolute Neuts (auto) (2.0-8.3) x10*3/uL Absolute Nucleated RBC (0.0-0.012) X10*3/uL Nucleated RBC % (auto) (0.0-0.2) /100WBC PT 15.3 H (9.9-13.0) SEC INR 1.3 H (0.9-1.1) APTT 34.9 (24.1-38.0) SEC Sodium 144 (135-145) mmol/L Potassium 4.0 (3.3-5.1) mmol/L Chloride 114 H (96-108) mmol/L Carbon Dioxide 20 L (22-29) mmol/L Anion Gap 14 (12-20) BUN 26 H (9-16) mg/dL Creatinine 1.68 H (0.5-1.4) mg/dL Estim Creat Clear Calc 54.9 Estimated GFR 41 POC Glucose (60-115) mg/dL Random Glucose 187 H D (60-115) mg/dL Calcium 8.8 (8.4-10.2) mg/dL Total Bilirubin 0.5 (0.0-1.0) mg/dL AST 66 H (5-37) U/L ALT 71 H (0-40) U/L Alkaline Phosphatase 110 (39-117) U/L Troponin I High Sens 19.1 D (<3.5-35.0) ng/L Total Protein 6.1 L (6.5-8.0) g/dL Albumin 3.4 L (3.5-5.0) g/dL Urine Color Urine Appearance Urine pH (5.0-8.0) Ur Specific [place] (1.005-1.025) Urine Protein (NEG-TRACE) MG/DL Urine Glucose (UA) (NEG) MG/DL Urine Ketones (NEG) MG/DL Urine Blood (NEG) Urine Nitrite (NEG) Ur Leukocyte Esterase (NEG) Urine RBC (0) /HPF Urine WBC (0-4) /HPF Ur Squamous Epith Cells /LPF Ur Renal Epithelial Cell /LPF Urine Bacteria /LPF Hyaline Casts /LPF Granular Casts /LPF WBC Casts /LPF Urine Mucus /LPF COVID-19 ([facility]) (Negative) COVID-19 Clin Com 09/08/21 Range/Units 21:41 WBC (4.8-10.8) X10*3/uL RBC (4.60-5.80) X10*6/uL Hgb (14.0-18.0) g/dl Hct (42.0-52.0) % MCV (80.0-98.0) fL MCH (27.0-33.0) pg MCHC (31.0-36.0) g/dl RDW (11.0-16.0) % Plt Count (160-400) X10*3/uL MPV (9.4-12.4) fL Immature Gran % (Auto) (0.0-0.4) % Neut % (Auto) (45-73) % Lymph % (Auto) (20-40) % [place] % (Auto) (2-11) % Eos % (Auto) (0-4) % Baso % (Auto) (0-2) % Lymph # (Auto) (1.2-4.9) X10*3/uL [place] # (Auto) (0.1-1.2) X10*3/uL Eos # (Auto) (0.0-0.4) X10*3/uL Baso # (Auto) (0.0-0.2) X10*3/uL Abs Immat Gran (auto) (0.00-0.03) X10*3/uL Absolute Neuts (auto) (2.0-8.3) x10*3/uL Absolute Nucleated RBC (0.0-0.012) X10*3/uL Nucleated RBC % (auto) (0.0-0.2) /100WBC PT (9.9-13.0) SEC INR (0.9-1.1) APTT (24.1-38.0) SEC Sodium (135-145) mmol/L Potassium (3.3-5.1) mmol/L Chloride (96-108) mmol/L Carbon Dioxide (22-29) mmol/L Anion Gap (12-20) BUN (9-16) mg/dL Creatinine (0.5-1.4) mg/dL Estim Creat Clear Calc Estimated GFR POC Glucose (60-115) mg/dL Random Glucose (60-115) mg/dL Calcium (8.4-10.2) mg/dL Total Bilirubin (0.0-1.0) mg/dL AST (5-37) U/L ALT (0-40) U/L Alkaline Phosphatase (39-117) U/L Troponin I High Sens (<3.5-35.0) ng/L Total Protein (6.5-8.0) g/dL Albumin (3.5-5.0) g/dL Urine Color YELLOW Urine Appearance CLEAR Urine pH 6.0 (5.0-8.0) Ur Specific [place] 1.025 (1.005-1.025) Urine Protein 1+ H (NEG-TRACE) MG/DL Urine Glucose (UA) NEG (NEG) MG/DL Urine Ketones NEG (NEG) MG/DL Urine Blood NEG (NEG) Urine Nitrite NEG (NEG) Ur Leukocyte Esterase NEG (NEG) Urine RBC 1-4 (0) /HPF Urine WBC 1-4 (0-4) /HPF Ur Squamous Epith Cells 1+ /LPF Ur Renal Epithelial Cell 1+ /LPF Urine Bacteria NONE /LPF Hyaline Casts 1-4 /LPF Granular Casts 1-4 /LPF WBC Casts 1-4 /LPF Urine Mucus 2+ /LPF COVID-19 ([facility]) (Negative) COVID-19 Clin Com ECG Data Attestation: I personally reviewed and interpreted this ECG as follows: Interpretation: Is fibrillation with rapid ventricular rate 118 beats per minute nonspecific intraventricular block nonspecific T-wave changes in lateral leads no s ignificant change from 07/17 Discharge Plan Discharge Clinical Impression: Atrial fibrillation with rapid ventricular response
[2021-09-08 21:35] LABS: MANUAL DIFF FLAG NO
[2021-09-08] MEDS: 0.9 % Sodium Chloride 1,000 ML 999 ML IV (21:38)
[2021-09-08 21:46] LABS: Basophils Absolute Auto 0.1 X10*3/uL (0.0-0.2); Basophils Percent Auto 0.7 % (0-2); Eosinophils Absolute Auto 0.1 X10*3/uL (0.0-0.4); Eosinophils Percent Auto 1.6 % (0-4); Hematocrit 38.5 % (42.0-52.0); Hemoglobin 12.8 g/dl (14.0-18.0); Imm Gran Abs Auto 0.04 X10*3/uL (0.00-0.03); Imm Gran Pct Auto 0.5 % (0.0-0.4); Lymphocytes Absolute Auto 2.7 X10*3/uL (1.2-4.9); Lymphocytes Percent Auto 33.2 % (20-40); Mean Corpuscular HGB Conc 33.2 g/dl (31.0-36.0); Mean Corpuscular Hemoglobin 30.9 pg (27.0-33.0); Mean Platelet Volume 10.6 fL (9.4-12.4); Monocytes Absolute Auto 0.7 X10*3/uL (0.1-1.2); Monocytes Percent Auto 8.5 % (2-11); Neutrophils Absolute Auto 4.5 x10*3/uL (2.0-8.3); Neutrophils Percent Auto 55.5 % (45-73); Platelet Count 340 X10*3/uL (160-400); Red Blood Count 4.14 X10*6/uL (4.60-5.80); Red Cell Distribution Width 13.9 % (11.0-16.0); White Blood Count 8.1 X10*3/uL (4.8-10.8)
[2021-09-08 21:50] LABS: Appearance Urine CLEAR; Color Urine YELLOW; Glucose Urine UA NEG (NEG); Leukocyte Esterase Urine NEG (NEG); Nitrite Urine NEG (NEG); Specific Gravity - Urine 1.025 (1.005-1.025); UACC Culture Trigger NO; Urine Blood NEG (NEG); Urine Ketones NEG (NEG); Urine Protein 1+ MG/DL (NEG-TRACE)
[2021-09-08 21:53] LABS: INTERNATIONAL NORM RATIO 1.3 (0.9-1.1); Prothrombin Time 15.3 SEC (9.9-13.0)
[2021-09-08 21:55] LABS: COVID-19 Test Negative (Negative)
[2021-09-08 21:55] LABS: Partial Thromboplastin Time 34.9 SEC (24.1-38.0)
[2021-09-08 22:02] LABS: Alanine Aminotransferase 71 U/L (0-40); Albumin Level 3.4 g/dL (3.5-5.0); Alkaline Phosphatase 110 U/L (39-117); Anion Gap 14 (12-20); Aspartate Amino Transferase 66 U/L (5-37); Bilirubin Total 0.5 mg/dL (0.0-1.0); Blood Urea Nitrogen 26 mg/dL (9-16); Calcium 8.8 mg/dL (8.4-10.2); Carbon Dioxide 20 mmol/L (22-29); Chloride 114 mmol/L (96-108); Creatinine Clr Calc Pharmacy 54.9; Estimated Glomerular Filt Rate 41; Glucose Random 187 mg/dL (60-115); Sodium 144 mmol/L (135-145); Total Protein 6.1 g/dL (6.5-8.0); Troponin-I High Sensitivity 19.1 ng/L (<3.5-35.0)
[2021-09-08 22:40] LABS: Squamous Epithelial Cell Urine 1+ /LPF
--- NOTE | 2021-09-08 22:40 | PC.NURSE ---
Pt ambulated around hallway with walker per order. gait even and steady Pt placed back in room on monitors Pt states feels dizzy HR 120s - 140s, A. fib on monitor Dr. Douglas made aware
[2021-09-08 22:41] LABS: Mucus Urine 2+ /LPF; Renal Epithelial Cells Urine 1+ /LPF
[2021-09-08] MEDS: Metoprolol Tartrate 5 MG/5 ML VIAL IVPUSH (22:51)
--- NOTE | 2021-09-08 23:12 | PM.IMHP ---
History of Present Illness Date of Service: 09/08/21 Chief Complaint: dizziness 61-year-old male with a past medical history of hypertension, hyperlipidemia, CKD, CHF with EF of 20-25%, AICD, persistent AFib, NSVT, CVA x2 with right-sided hemiparesis / aphasia, history of seizures presented to the hospital with a chief complaint of dizziness. Patient mentioned that when history up and try to go to the bathroom and felt dizzy; denies any room spinning; denies any loss of consciousness. Denies any chest pain or palpitations. Reports dizziness with minimal activity. Mentions mild shortness of breath. Denies any nausea vomiting or diarrhea. Denies any urinary symptoms. Review of all other systems is negative except mentioned above ER course: Per ER team patient noted to have nonischemic EKG; troponins 19.1; labs were essentially benign and baseline; with minimal exertion patient was taken to 140s; patient was given metoprolol. Admitted to the hospital for further management [facility] Medical History Cardiac defibrillator in place CHF (congestive heart failure) CHF (congestive heart failure) Chronic systolic heart failure CKD (chronic kidney disease), stage II Embolism of kidney Gallstones Hypertension NICM (nonischemic cardiomyopathy) NSVT (nonsustained ventricular tachycardia) Persistent atrial fibrillation Renal infarct Family History Other CAD (coronary artery disease) Surgical History History of cardiac defibrillator placement Social History Household Members: Spouse Housing: House Do you presently have visiting nurse or other home services: No Alcohol intake: never Patient Tobacco Use Status: Never used Tobacco Advance Directives: Yes Advance Directives on File: Yes Advance Directives Date on File: 10/18/20 service: Yes Current occupational status: employed Meds Allergies Allergy/AdvReac Type Severity Reaction Status Date / Time No Known Allergies Allergy Verified 07/03/21 10:58 [No Known Allergies*] Active Medications: Current Medications Acetaminophen (Acetaminophen 325 Mg Tablet) 650 mg PO Q6H PRN PRN Reason: Pain, Mild (Pain Scale 1-3) Melatonin (Melatonin 3 Mg Tablet) 6 mg PO BEDTIME PRN PRN Reason: Insomnia Senna (Sennosides 8.6 Mg Tablet) 17.2 mg PO BEDTIME PRN PRN Reason: Constipation Sodium Chloride (0.9 % Sodium Chloride Flush 3 Ml Syringe) 3 ml IVFLUSH QSHIFT [facility] Home Medications Medication Instructions Recorded Confirmed Last Taken Type apixaban 5 mg tablet (Eliquis) 5 mg PO BID 07/02/21 07/02/21 Unknown History atorvastatin 80 mg tablet 80 mg PO BEDTIME 07/02/21 07/02/21 Unknown History carvedilol 6.25 mg tablet 6.25 mg PO BID 07/02/21 07/02/21 Unknown History citalopram 10 mg tablet 10 mg PO DAILY 07/02/21 07/02/21 Unknown History famotidine 20 mg tablet 20 mg PO DAILY 07/02/21 07/02/21 Unknown History mirtazapine 7.5 mg tablet 7.5 mg PO DAILY 07/02/21 07/02/21 Unknown History Physical Exam Vital Signs and Narrative: Vital Signs: Last Vital Signs Temp 98.0 F 09/08/21 22:41 Pulse 109 H 09/08/21 23:00 Resp 16 09/08/21 22:41 BP 130/64 09/08/21 23:00 Pulse Ox 98 09/08/21 22:41 BMI result Body Mass Index 29.7 Gen: Appears be in no acute distress HEENT: NCAT, Moist mucosa. Pulmonary: Vesicular breath sounds, fair air entry CVS: Normal S1-S2 Abdomen: BS+, Soft, Nontender Extremities: Warm well perfused Neuro: Alert and awake. Results Labs CBC and Chem 7: 09/08/21 21:31 09/08/21 21:31 Labs: Laboratory Results - last 24 hr 09/08/21 09/08/21 09/08/21 21:03 21:26 21:31 MCV 93.0 MCH 30.9 MCHC 33.2 RDW 13.9 Plt Count 340 MPV 10.6 Immature Gran % (Auto) 0.5 H Neut % (Auto) 55.5 Lymph % (Auto) 33.2 [place] % (Auto) 8.5 Eos % (Auto) 1.6 Baso % (Auto) 0.7 Lymph # (Auto) 2.7 [place] # (Auto) 0.7 Eos # (Auto) 0.1 Baso # (Auto) 0.1 Abs Immat Gran (auto) 0.04 H Absolute Neuts (auto) 4.5 Absolute Nucleated RBC 0.000 Nucleated RBC % (auto) 0.0 PT INR APTT Anion Gap Estim Creat Clear Calc Estimated GFR POC Glucose 182 H Random Glucose Calcium Total Bilirubin AST ALT Alkaline Phosphatase Troponin I High Sens Total Protein Albumin Urine Color Urine Appearance Urine pH Ur Specific [place] Urine Protein Urine Glucose (UA) Urine Ketones Urine Blood Urine Nitrite Ur Leukocyte Esterase Urine RBC Urine WBC Ur Squamous Epith Cells Ur Renal Epithelial Cell Urine Bacteria Hyaline Casts Granular Casts WBC Casts Urine Mucus COVID-19 ([facility]) Negative COVID-19 Clin Com See Note 09/08/21 09/08/21 09/08/21 21:31 21:31 21:31 MCV MCH MCHC RDW Plt Count MPV Immature Gran % (Auto) Neut % (Auto) Lymph % (Auto) [place] % (Auto) Eos % (Auto) Baso % (Auto) Lymph # (Auto) [place] # (Auto) Eos # (Auto) Baso # (Auto) Abs Immat Gran (auto) Absolute Neuts (auto) Absolute Nucleated RBC Nucleated RBC % (auto) PT 15.3 H INR 1.3 H APTT 34.9 Anion Gap 14 Estim Creat Clear Calc 54.9 Estimated GFR 41 POC Glucose Random Glucose 187 H D Calcium 8.8 Total Bilirubin 0.5 AST 66 H ALT 71 H Alkaline Phosphatase 110 Troponin I High Sens 19.1 D Total Protein 6.1 L Albumin 3.4 L Urine Color Urine Appearance Urine pH Ur Specific [place] Urine Protein Urine Glucose (UA) Urine Ketones Urine Blood Urine Nitrite Ur Leukocyte Esterase Urine RBC Urine WBC Ur Squamous Epith Cells Ur Renal Epithelial Cell Urine Bacteria Hyaline Casts Granular Casts WBC Casts Urine Mucus COVID-19 ([facility]) COVID-19 Clin Com 09/08/21 21:41 MCV MCH MCHC RDW Plt Count MPV Immature Gran % (Auto) Neut % (Auto) Lymph % (Auto) [place] % (Auto) Eos % (Auto) Baso % (Auto) Lymph # (Auto) [place] # (Auto) Eos # (Auto) Baso # (Auto) Abs Immat Gran (auto) Absolute Neuts (auto) Absolute Nucleated RBC Nucleated RBC % (auto) PT INR APTT Anion Gap Estim Creat Clear Calc Estimated GFR POC Glucose Random Glucose Calcium Total Bilirubin AST ALT Alkaline Phosphatase Troponin I High Sens Total Protein Albumin Urine Color YELLOW Urine Appearance CLEAR Urine pH 6.0 Ur Specific [place] 1.025 Urine Protein 1+ H Urine Glucose (UA) NEG Urine Ketones NEG Urine Blood NEG Urine Nitrite NEG Ur Leukocyte Esterase NEG Urine RBC 1-4 Urine WBC 1-4 Ur Squamous Epith Cells 1+ Ur Renal Epithelial Cell 1+ Urine Bacteria NONE Hyaline Casts 1-4 Granular Casts 1-4 WBC Casts 1-4 Urine Mucus 2+ COVID-19 ([facility]) COVID-19 Clin Com Imaging Radiologist's Impressions: Impressions Chest X-Ray 09/08/21 21:55 IMPRESSION: No acute pulmonary finding. Assessment and Plan Plan 61-year-old male with a past medical history of hypertension, hyperlipidemia, CKD, CHF with EF of 20-25%, AICD, persistent AFib, NSVT, CVA x2 with right-sided hemiparesis / aphasia, history of seizures presented to the hospital with a chief complaint of dizziness. Dizziness: Orthostatic vitals Telemetry Fall precautions PT/OT AFib with RVR: Patient heart rate in the 100s; worsens to 140s with minimal exertion. Metoprolol IV p.r.n.. continue Eliquis History of CHF: EF of 20-25%; status post AICD. Continue home Bumex, carvedilol, Entresto, Aldactone history of CKD: Creatinine at baseline. DVT prophylaxis: Patient on Eliquis Code status: Full code Quality Stroke Does the patient have a stroke diagnosis?: No VTE Prior VTE?: No VTE Risk Level:: Medical - moderate - high VTE Device Contraindication: Treatment Not Indicated VTE Drug Contraindication: N/A - Med Ordered
[2021-09-09 00:05] VITALS: BP 137/83; PULSE 66; RESP 20; O2SAT 99
[2021-09-09 03:11] VITALS: PULSE 90; O2SAT 98
[2021-09-09 06:11] VITALS: BP 136/89; PULSE 86; RESP 13; TEMP 37.2; O2SAT 98
[2021-09-09 06:59] LABS: MANUAL DIFF FLAG NO
[2021-09-09 07:05] LABS: Basophils Percent Auto 0.3 % (0-2); Eosinophils Percent Auto 0.1 % (0-4); Hematocrit 39.3 % (42.0-52.0); Imm Gran Abs Auto 0.03 X10*3/uL (0.00-0.03); Imm Gran Pct Auto 0.3 % (0.0-0.4); Lymphocytes Absolute Auto 2.1 X10*3/uL (1.2-4.9); Lymphocytes Percent Auto 24.5 % (20-40); Mean Corpuscular HGB Conc 33.1 g/dl (31.0-36.0); Mean Corpuscular Volume 93.8 fL (80.0-98.0); Mean Platelet Volume 10.7 fL (9.4-12.4); Monocytes Absolute Auto 0.8 X10*3/uL (0.1-1.2); Neutrophils Absolute Auto 5.6 x10*3/uL (2.0-8.3); Neutrophils Percent Auto 65.8 % (45-73); Platelet Count 299 X10*3/uL (160-400); Red Blood Count 4.19 X10*6/uL (4.60-5.80); White Blood Count 8.6 X10*3/uL (4.8-10.8)
[2021-09-09 07:37] LABS: Anion Gap 10 (12-20); Blood Urea Nitrogen 26 mg/dL (9-16); Calcium 8.7 mg/dL (8.4-10.2); Carbon Dioxide 24 mmol/L (22-29); Chloride 113 mmol/L (96-108); Creatinine Clr Calc Pharmacy 59.1; Estimated Glomerular Filt Rate 45; Glucose Random 111 mg/dL (60-115); Potassium 4.2 mmol/L (3.3-5.1); Sodium 143 mmol/L (135-145)
[2021-09-09 07:41] VITALS: BP 126/85; PULSE 82; RESP 20; TEMP 37.3; O2SAT 98
--- NOTE | 2021-09-09 09:59 | P.PNIM_ITS ---
Subjective Subjective Date of Service: 09/09/21 Interval History: cc: weakness, afib with rvr on ambulation interval history:feeling better Cardiovascular Cardiovascular: Reports no additional cardiovascular complaints Respiratory Respiratory: Reports no additional respiratory complaints Physical Exam Vital Signs: Vital Signs: Last Vital Signs Temp 99.2 F 09/09/21 07:41 Pulse 82 09/09/21 07:41 Resp 20 09/09/21 07:41 BP 126/85 09/09/21 07:41 Pulse Ox 98 09/09/21 07:41 BMI result Body Mass Index 29.7 General: AO X 3, no acute distress Resp: CTA bilateral, no accessory muscles used CVS: S1,S2 irregular GI: soft, non tender, non distended Neuro: right hemiparesis, alert Psych: appropriate affect, appropriate insight Objective Data Active Medications Acetaminophen (Acetaminophen 325 Mg Tablet) 650 mg PO Q6H PRN PRN Reason: Pain, Mild (Pain Scale 1-3) Apixaban (Apixaban 5 Mg Tablet) 5 mg PO BID [facility] Atorvastatin Calcium (Atorvastatin Calcium 80 Mg Tablet) 80 mg PO BEDTIME NENA Carvedilol (Carvedilol 6.25 Mg Tablet) 6.25 mg PO BID NENA; Protocol Famotidine (Famotidine 20 Mg Tablet) 20 mg PO DAILY NENA Levetiracetam (Levetiracetam 500 Mg Tablet) 500 mg PO BID NENA Mirtazapine (Mirtazapine 7.5 Mg Tablet) 7.5 mg PO DAILY [facility] Non-Formulary Medication (Citalopram) 10 mg PO DAILY [facility] Sodium Chloride (0.9 % Sodium Chloride Flush 3 Ml Syringe) 3 ml IVFLUSH QSHIFT [facility] Last Admin: 09/09/21 01:57 Dose: Not Given Documented by: AKASH Non-Admin Reason: Patient Asleep Labs CBC & Chem 7: 09/09/21 06:07 09/09/21 06:07 Labs: Laboratory Results - last 24 hr 09/08/21 09/08/21 09/08/21 21:03 21:26 21:31 MCV 93.0 MCH 30.9 MCHC 33.2 RDW 13.9 Plt Count 340 MPV 10.6 Immature Gran % (Auto) 0.5 H Neut % (Auto) 55.5 Lymph % (Auto) 33.2 [place] % (Auto) 8.5 Eos % (Auto) 1.6 Baso % (Auto) 0.7 Lymph # (Auto) 2.7 [place] # (Auto) 0.7 Eos # (Auto) 0.1 Baso # (Auto) 0.1 Abs Immat Gran (auto) 0.04 H Absolute Neuts (auto) 4.5 Absolute Nucleated RBC 0.000 Nucleated RBC % (auto) 0.0 PT INR APTT Anion Gap Estim Creat Clear Calc Estimated GFR POC Glucose 182 H Random Glucose Calcium Total Bilirubin AST ALT Alkaline Phosphatase Troponin I High Sens Total Protein Albumin Urine Color Urine Appearance Urine pH Ur Specific [place] Urine Protein Urine Glucose (UA) Urine Ketones Urine Blood Urine Nitrite Ur Leukocyte Esterase Urine RBC Urine WBC Ur Squamous Epith Cells Ur Renal Epithelial Cell Urine Bacteria Hyaline Casts Granular Casts WBC Casts Urine Mucus COVID-19 ([facility]) Negative COVID-19 Clin Com See Note 09/08/21 09/08/21 09/08/21 21:31 21:31 21:31 MCV MCH MCHC RDW Plt Count MPV Immature Gran % (Auto) Neut % (Auto) Lymph % (Auto) [place] % (Auto) Eos % (Auto) Baso % (Auto) Lymph # (Auto) [place] # (Auto) Eos # (Auto) Baso # (Auto) Abs Immat Gran (auto) Absolute Neuts (auto) Absolute Nucleated RBC Nucleated RBC % (auto) PT 15.3 H INR 1.3 H APTT 34.9 Anion Gap 14 Estim Creat Clear Calc 54.9 Estimated GFR 41 POC Glucose Random Glucose 187 H D Calcium 8.8 Total Bilirubin 0.5 AST 66 H ALT 71 H Alkaline Phosphatase 110 Troponin I High Sens 19.1 D Total Protein 6.1 L Albumin 3.4 L Urine Color Urine Appearance Urine pH Ur Specific [place] Urine Protein Urine Glucose (UA) Urine Ketones Urine Blood Urine Nitrite Ur Leukocyte Esterase Urine RBC Urine WBC Ur Squamous Epith Cells Ur Renal Epithelial Cell Urine Bacteria Hyaline Casts Granular Casts WBC Casts Urine Mucus COVID-19 ([facility]) COVID-19 Clin Com 09/08/21 09/09/21 09/09/21 21:41 06:07 06:07 MCV 93.8 MCH 31.0 MCHC 33.1 RDW 14.0 Plt Count 299 MPV 10.7 Immature Gran % (Auto) 0.3 Neut % (Auto) 65.8 Lymph % (Auto) 24.5 [place] % (Auto) 9.0 Eos % (Auto) 0.1 Baso % (Auto) 0.3 Lymph # (Auto) 2.1 [place] # (Auto) 0.8 Eos # (Auto) 0.0 Baso # (Auto) 0.0 Abs Immat Gran (auto) 0.03 Absolute Neuts (auto) 5.6 Absolute Nucleated RBC 0.000 Nucleated RBC % (auto) 0.0 PT INR APTT Anion Gap 10 L Estim Creat Clear Calc 59.1 Estimated GFR 45 POC Glucose Random Glucose 111 D Calcium 8.7 Total Bilirubin AST ALT Alkaline Phosphatase Troponin I High Sens Total Protein Albumin Urine Color YELLOW Urine Appearance CLEAR Urine pH 6.0 Ur Specific [place] 1.025 Urine Protein 1+ H Urine Glucose (UA) NEG Urine Ketones NEG Urine Blood NEG Urine Nitrite NEG Ur Leukocyte Esterase NEG Urine RBC 1-4 Urine WBC 1-4 Ur Squamous Epith Cells 1+ Ur Renal Epithelial Cell 1+ Urine Bacteria NONE Hyaline Casts 1-4 Granular Casts 1-4 WBC Casts 1-4 Urine Mucus 2+ COVID-19 ([facility]) COVID-19 Clin Com Assessment and Plan (1) Atrial fibrillation with rapid ventricular response: Status: Acute Plan 61M presented with weakness, afib with rvr on exertion weakness/ chronic afib with rvr reports feeling better, continue coreg, eliquis, PT eval, received iv fluids, holding diuretics check orthostatics NICM (chronic systolic chf) coreg, ? on entresto holding diuretics history of CVA with right hemiparesis eliuwis, statin epilepsy keppra CKD III stable reason for continued hospitalization: needs to demonstrate excersize tolerancfe without going into RVR Quality Stroke Does the patient have a stroke diagnosis?: No VTE Prior VTE?: No VTE Risk Level:: Medical - moderate - high VTE Device Contraindication: Treatment Not Indicated VTE Drug Contraindication: N/A - Med Ordered
[2021-09-09] MEDS: levETIRAcetam 500 MG TABLET PO (11:25)
[2021-09-09] MEDS: Apixaban 5 MG TABLET PO (11:25)
[2021-09-09] MEDS: Famotidine 20 MG TABLET PO (11:25)
[2021-09-09] MEDS: carvediloL 6.25 MG TABLET PO (11:25)
[2021-09-09] MEDS: Mirtazapine 7.5 MG TABLET PO (11:25)
--- NOTE | 2021-09-09 12:00 | PC.NURSE ---
per of pt, she crushes all his meds and either puts them in jello or liquid.
[2021-09-09] MEDS: Sacubitril/Valsartan 49/51 1 TAB TABLET PO (12:07)
[2021-09-09] MEDS: Escitalopram Oxalate 5 MG TABLET PO (12:07)
--- NOTE | 2021-09-09 12:54 | MHC.CM.PN ---
met with pt in ed present was pts hcp/ziyad salas explins that [facility] his pcp dr piña hed is vax x 3 will need chair van when dcd plan is home
--- NOTE | 2021-09-09 15:10 | PC.NURSE ---
patient spoke with admitting physician, does not want to remain in ED and would like to leave AMA. does not want to take patient home, but patient is ambulatory and states ill figure it out . patient in no obvious distress at this time, alert and oriented. ambulating with walker
--- NOTE | 2021-09-09 15:17 | PM.DS ---
DS: Providers Provider Date of Service: 09/09/21 Date of admission: 09/08/21 23:06 Primary care physician: Unknown Physician DS: Diagnosis Discharge Diagnosis (1) Atrial fibrillation with rapid ventricular response: Status: Acute DS: Summary Hospital Course Hospital Course: From initial HPI: Chief Complaint: dizziness ?? 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 presented to the hospital with a chief complaint of dizziness. Patient mentioned that when history up and try to go to the bathroom and felt dizzy; denies any room spinning; denies any loss of consciousness. Denies any chest pain or palpitations.? Reports dizziness with minimal activity.? Mentions mild shortness of breath.? Denies any nausea vomiting or diarrhea. Denies any urinary symptoms.? Review of all other systems is negative except mentioned above ER course: Per ER team patient noted to have nonischemic EKG; troponins? 19.1; labs were essentially benign and baseline; with minimal exertion patient was taken to 140s; patient was given metoprolol.? Admitted to the hospital for further management Hospital course: Patient was admitted for weakness and chronic atrial fibrillation with rapid ventricular response. Plan was to hold diuretics get orthostatic vital signs and physical therapy evaluation, however, patient decided to leave against medical advice he was aware of the risk of doing so including . For his nonischemic cardiomyopathy he will continue on Coreg and Entresto. For his history of CVA with right hemiparesis he will continue on Eliquis and statin. For his epilepsy is continue on Keppra. For CKD 3 his creatinine was stable he will follow up outpatient. Time Spent with Patient Time attestation: Total time spent providing and/or coordinating discharge services: Discharge coordination time: Greater than 30 minutes Quality: Safe Use of Opioids Does Pt have an Active Cancer Diagnosis on the Problem List?: No Quality: Stroke Does the patient have a stroke diagnosis?: No Physical Exam Vital Signs: Vital Signs: Last Vital Signs Temp 99.2 F 09/09/21 07:41 Pulse 82 09/09/21 07:41 Resp 20 09/09/21 07:41 BP 126/85 09/09/21 07:41 Pulse Ox 98 09/09/21 07:41 BMI result Body Mass Index 29.7 General: AO X 3, no acute distress Resp:? CTA bilateral, no accessory muscles used CVS: S1,S2 irregular GI: soft, non tender, non distended Neuro:? right hemiparesis, alert Psych: appropriate affect, appropriate insight? DS: Data Data Completed and Pending Labs on day of discharge: Laboratory Results - last 24 hr 09/08/21 09/08/21 09/08/21 21:03 21:26 21:31 WBC 8.1 RBC 4.14 L Hgb 12.8 L Hct 38.5 L MCV 93.0 MCH 30.9 MCHC 33.2 RDW 13.9 Plt Count 340 MPV 10.6 Immature Gran % (Auto) 0.5 H Neut % (Auto) 55.5 Lymph % (Auto) 33.2 [place] % (Auto) 8.5 Eos % (Auto) 1.6 Baso % (Auto) 0.7 Lymph # (Auto) 2.7 [place] # (Auto) 0.7 Eos # (Auto) 0.1 Baso # (Auto) 0.1 Abs Immat Gran (auto) 0.04 H Absolute Neuts (auto) 4.5 Absolute Nucleated RBC 0.000 Nucleated RBC % (auto) 0.0 PT INR APTT Sodium Potassium Chloride Carbon Dioxide Anion Gap BUN Creatinine Estim Creat Clear Calc Estimated GFR POC Glucose 182 H Random Glucose Calcium Total Bilirubin AST ALT Alkaline Phosphatase Troponin I High Sens Total Protein Albumin Urine Color Urine Appearance Urine pH Ur Specific [place] Urine Protein Urine Glucose (UA) Urine Ketones Urine Blood Urine Nitrite Ur Leukocyte Esterase Urine RBC Urine WBC Ur Squamous Epith Cells Ur Renal Epithelial Cell Urine Bacteria Hyaline Casts Granular Casts WBC Casts Urine Mucus COVID-19 ([facility]) Negative COVID-19 Clin Com See Note 09/08/21 09/08/21 09/08/21 21:31 21:31 21:31 WBC RBC Hgb Hct MCV MCH MCHC RDW Plt Count MPV Immature Gran % (Auto) Neut % (Auto) Lymph % (Auto) [place] % (Auto) Eos % (Auto) Baso % (Auto) Lymph # (Auto) [place] # (Auto) Eos # (Auto) Baso # (Auto) Abs Immat Gran (auto) Absolute Neuts (auto) Absolute Nucleated RBC Nucleated RBC % (auto) PT 15.3 H INR 1.3 H APTT 34.9 Sodium 144 Potassium 4.0 Chloride 114 H Carbon Dioxide 20 L Anion Gap 14 BUN 26 H Creatinine 1.68 H Estim Creat Clear Calc 54.9 Estimated GFR 41 POC Glucose Random Glucose 187 H D Calcium 8.8 Total Bilirubin 0.5 AST 66 H ALT 71 H Alkaline Phosphatase 110 Troponin I High Sens 19.1 D Total Protein 6.1 L Albumin 3.4 L Urine Color Urine Appearance Urine pH Ur Specific [place] Urine Protein Urine Glucose (UA) Urine Ketones Urine Blood Urine Nitrite Ur Leukocyte Esterase Urine RBC Urine WBC Ur Squamous Epith Cells Ur Renal Epithelial Cell Urine Bacteria Hyaline Casts Granular Casts WBC Casts Urine Mucus COVID-19 ([facility]) COVID-19 HOSTING Com 09/08/21 09/09/21 09/09/21 21:41 06:07 06:07 WBC 8.6 RBC 4.19 L Hgb 13.0 L Hct 39.3 L MCV 93.8 MCH 31.0 MCHC 33.1 RDW 14.0 Plt Count 299 MPV 10.7 Immature Gran % (Auto) 0.3 Neut % (Auto) 65.8 Lymph % (Auto) 24.5 [place] % (Auto) 9.0 Eos % (Auto) 0.1 Baso % (Auto) 0.3 Lymph # (Auto) 2.1 [place] # (Auto) 0.8 Eos # (Auto) 0.0 Baso # (Auto) 0.0 Abs Immat Gran (auto) 0.03 Absolute Neuts (auto) 5.6 Absolute Nucleated RBC 0.000 Nucleated RBC % (auto) 0.0 PT INR APTT Sodium 143 Potassium 4.2 Chloride 113 H Carbon Dioxide 24 Anion Gap 10 L BUN 26 H Creatinine 1.56 H Estim Creat Clear Calc 59.1 Estimated GFR 45 POC Glucose Random Glucose 111 D Calcium 8.7 Total Bilirubin AST ALT Alkaline Phosphatase Troponin I High Sens Total Protein Albumin Urine Color YELLOW Urine Appearance CLEAR Urine pH 6.0 Ur Specific [place] 1.025 Urine Protein 1+ H Urine Glucose (UA) NEG Urine Ketones NEG Urine Blood NEG Urine Nitrite NEG Ur Leukocyte Esterase NEG Urine RBC 1-4 Urine WBC 1-4 Ur Squamous Epith Cells 1+ Ur Renal Epithelial Cell 1+ Urine Bacteria NONE Hyaline Casts 1-4 Granular Casts 1-4 WBC Casts 1-4 Urine Mucus 2+ COVID-19 ([facility]) COVID-19 HOSTING Com Discharge Plan Discharge Patient Disposition: Left Against Medical Advice Discharge Diagnosis: aifb rvr Referrals: Physician,Unknown J [Primary Care Provider] - 1 Week Discharge Medications: No Action atorvastatin 80 mg tablet 80 mg PO BEDTIME 0RF carvedilol 6.25 mg tablet 6.25 mg PO BID 0RF citalopram 10 mg tablet 10 mg PO DAILY 0RF famotidine 20 mg tablet 20 mg PO DAILY 0RF mirtazapine 7.5 mg tablet 7.5 mg PO DAILY 0RF Eliquis 5 mg tablet 5 mg PO BID 0RF Entresto 49-51 mg Tablet 1 tab PO BID Qty: 30 0RF Protocol: Hold for SBP< HOLD for SBP < : 90 levetiracetam 500 mg Tablet 500 mg PO BID 30 Days Qty: 60 0RF Discharge Orders: Discharge Order (Routine); Ordered 09/09/21 Ordered By: Juan De Guzman Care Plan Goals: recovbery Health Concerns: afib, weakness Plan of Treatment: follow up with pcp, cardio Assessment: see above
--- NOTE | 2021-09-09 15:27 | MHC.CM.PN ---
pt left ama
== END 2021-09-09 16:48 | disposition left against medical advice (07) | DRG 309 ==
LOC: HO.ED 23:06 → HO.EDOVER 23:14
PROVIDERS: Admitting Provider Hospitalist; Emergency Provider Internal Medicine; Visit Provider Internal Medicine
DX: I48.19 Other persistent atrial fibrillation (principal); I69.351 Hemiplegia and hemiparesis following cerebral infarction affecting right dominant side; I13.0 Hypertensive heart and chronic kidney disease with heart failure and stage 1 through stage 4 chronic kidney disease, or unspecified chronic kidney disease; I50.22 Chronic systolic (congestive) heart failure; N18.30 Chronic kidney disease, stage 3 unspecified; E78.5 Hyperlipidemia, unspecified; I42.9 Cardiomyopathy, unspecified; I69.320 Aphasia following cerebral infarction; I69.398 Other sequelae of cerebral infarction; Z20.822 Contact with and (suspected) exposure to COVID-19; Z95.810 Presence of automatic (implantable) cardiac defibrillator; Z79.01 Long term (current) use of anticoagulants; Z79.899 Other long term (current) drug therapy
CPT/HCPCS: 36415; 71045; 80048; 80053; 81001; 82947; 84484; 85025; 85610; 85730; 87635; 93005; 96361; 96374; 99219; 99284; 99285

== ENCOUNTER → 2021-12-25 14:34 | Outpatient (BNVA) | payer OTHER, SELFPAY | PROVIDERS: PCP Internal Medicine; Referring Provider Internal Medicine; Visit Provider Nurse Practitioner Family | DX: I42.8 Other cardiomyopathies (principal); I25.10 Atherosclerotic heart disease of native coronary artery without angina pectoris; I69.320 Aphasia following cerebral infarction; I69.351 Hemiplegia and hemiparesis following cerebral infarction affecting right dominant side; I48.20 Chronic atrial fibrillation, unspecified; I12.9 Hypertensive chronic kidney disease with stage 1 through stage 4 chronic kidney disease, or unspecified chronic kidney disease; I47.2 Ventricular tachycardia; N18.2 Chronic kidney disease, stage 2 (mild); Z95.810 Presence of automatic (implantable) cardiac defibrillator; Z79.899 Other long term (current) drug therapy | CPT/HCPCS: 99212 ==

== ENCOUNTER 2022-01-15 15:38 | Emergency (ER) | payer OTHER, MEDICAID, SELFPAY ==
--- NOTE | ~2022-01-15 | CT_ITS ---
EXAMINATION: CT HEAD WITHOUT CONTRAST CLINICAL INFORMATION: Headache. History of stroke with right-sided deficits COMPARISON: Head CT 07/05/2021 TECHNIQUE: Imaging was performed from the skull base to vertex without intravenous administration of contrast. This CT examination was performed using dose optimization techniques as appropriate, variously including the following: *Automated exposure control *Adjustment of mA and/or kV according to patient size (this includes techniques or standardized protocols for targeted exams where dose is matched to indication/reason for exam; i.e. extremities or head) *Use of iterative reconstruction technique Total exam dose length product: 775 mGy-cm FINDINGS: No intra or extra-axial fluid collection, hemorrhage, or mass. No ventriculomegaly. No midline shift or herniation. Basal cisterns are patent. Tubbs-white matter differentiation is maintained. Large area of encephalomalacia redemonstrated compatible with large prior left MCA distribution infarct. Proportional prominence of the ventricles and sulcal spaces is consistent with mild volume loss. Patchy periventricular and deep white matter hypoattenuation is consistent with mild small vessel ischemic changes. No calvarial fracture or soft tissue abnormality. The mastoid air cells and visualized portions of the paranasal sinuses are well aerated. CT/CT head/brain wo IV con IMPRESSION: 1. Encephalomalacia compatible with remote prior left MCA distribution infarct, unchanged. No acute edematous territorial infarct identified. 2. No intracranial hemorrhage, mass, or other acute intracranial abnormality.
[2022-01-15 16:06] VITALS: BP 137/92; BP 137/95; PULSE 80; PULSE 86; RESP 25; O2SAT 98; O2SAT 99; BMI 25.8
--- NOTE | 2022-01-15 16:20 | ED.HA ---
HPI - Headache General Chief Complaint: Headache Stated Complaint: Headache, right side tingling Time Seen by Provider: 01/15/22 16:03 Source: patient and EMS Mode of arrival: ambulatory Limitations: no limitations History of Present Illness HPI Narrative: patient comes to the emergency room complaining of a headache that started approximately 3 hours ago. Patient is unable to give any significant history, patient had a CVA in March of 2021. The only thing the patient can say is yes, no, and tu sabes (you know). according to EMS, the patient has right-sided deficits in the right upper extremity and right-sided mouth droop. The reported to them that he seemed to be complaining of a headache, no new neurological deficits. Related Data Home Medications Medication Instructions Recorded Confirmed apixaban 5 mg tablet (Eliquis) 5 mg PO BID 07/02/21 12/25/21 atorvastatin 80 mg tablet 80 mg PO BEDTIME 07/02/21 12/25/21 carvedilol 6.25 mg tablet 6.25 mg PO BID 07/02/21 12/25/21 citalopram 10 mg tablet 10 mg PO DAILY 07/02/21 12/25/21 mirtazapine 7.5 mg tablet 7.5 mg PO DAILY 07/02/21 12/25/21 bumetanide 1 mg tablet 1 mg PO DAILY PRN 10/22/21 12/25/21 Previous Rx's Medication Instructions Recorded levetiracetam 500 mg tablet 500 mg PO BID 30 days #60 tabs 07/09/21 sacubitril 49 mg-valsartan 51 mg 1 tab PO BID #30 tabs 07/09/21 tablet (Entresto) acetaminophen 500 mg capsule 500 mg PO Q6H PRN fever or pain 01/15/22 #20 caps Allergies Allergy/AdvReac Type Severity Reaction Status Date / Time No Known Allergies Allergy Verified 12/25/21 14:47 [No Known Allergies*] Review of Systems Review of Systems: Constitutional : No Weight loss, No Fever, No Chills, No Night Sweats, No Fatigue, No Malaise ENT/Mouth : No Hearing loss, No Ear Pain, No Nasal Congestion, No Sinus Pain, No Hoarseness, No sore throat, No Rhinorrhea, No Swallowing Difficulty Eyes: No Eye Pain, No Swelling, No Redness, No Foreign Body, No Discharge, No Vision Changes Cardiovascular : No Chest Pain, No SOB, No Dyspnea on Exertion, No Orthopnea, No Edema, No Palpitations Respiratory : No Cough, No Sputum, No Wheezing, No Smoke Exposure, No Dyspnea Gastrointestinal : No Nausea, No Vomiting, No Diarrhea, No Constipation, No abdominal Pain, No Hematochezia, No Melena Genitourinary : no irregular bleeding, No Dysuria, No Urinary Frequency, No Hematuria, No Urinary Incontinence, No Urgency, No Flank Pain, No Urinary Flow Changes, No Hesitancy Musculoskeletal : No joint pain, No Myalgias, No Joint Swelling Skin : No Skin Lesions, No rash Neuro : No Weakness, No Numbness, No Paresthesias, No Loss of Consciousness, No Dizziness, Seems that patient had earlier today a right-sided headache, states the pain is Not bad Psych : No Anxiety/Panic, No Depression, No SI/HI/AH/VH, No Social Issues, Heme/Lymph: No Bruising, No Bleeding,No Lymphadenopathy Endocrine : No Polyuria, No Polydipsia, No Temperature Intolerance [facility] Past Medical History Medical History Cardiac defibrillator in place CHF (congestive heart failure) CHF (congestive heart failure) Chronic systolic heart failure CKD (chronic kidney disease), stage II CVA (cerebral vascular accident) Embolism of kidney Gallstones Hypertension NICM (nonischemic cardiomyopathy) NSVT (nonsustained ventricular tachycardia) Persistent atrial fibrillation Renal infarct Surgical History History of cardiac defibrillator placement Family History Family History Other CAD (coronary artery disease) Social History Social History Household Members: Spouse Housing: House Do you presently have visiting nurse or other home services: No Alcohol intake: never Patient Tobacco Use Status: Never used Tobacco Advance Directives: Yes Advance Directives on File: Yes Advance Directives Date on File: 10/18/20 service: Yes Current occupational status: employed Physical Exam Vital Signs: Vital Signs: Last Vital Signs Pulse 86 01/15/22 16:06 Resp 25 H 01/15/22 16:06 BP 137/95 H 01/15/22 16:06 Pulse Ox 99 01/15/22 16:06 O2 Del Method 01/15/22 16:06 BMI result Body Mass Index 25.8 Const: Other: Appearance: Alert. No acute distress. Eyes: Pupils equal, round and reactive to light. ENT: Pharynx normal. Neck: Normal inspection. Neck supple. No lymph nodes noted. No crepitus CVS: Normal heart rate and rhythm. Pulses normal. Normal S1 and S2 Respiratory: No respiratory distress. Breath sounds normal. No Wheezing. No rales Abdomen: Soft and nontender. No rigidity. No distention. Skin: Skin warm and dry. Normal skin color. Normal skin turgor. Extremities: No lower extremity edema. No Lacerations. No Rash Neuro: patient has 1/5 strength in the right upper extremity, 2/5 strength in the right lower extremity, 5/5 strength in left upper and lower extremity, chronic right-sided mouth droop Psych: calm, cooperative, normal affect Course Course Course Narrative: history is very limited due to patient's prior history of CVA. Overall, patient seems to be stable. Patient will be provided with medication for headache, head CT, vitals are stable. I discussed the CT scan with the patient and his partner, no Acute findings. Patient states that his headache resolved And feels well. MDM - Headache Imaging Data CT scan - head: Radiologist's impression: FINDINGS: No intra or extra-axial fluid collection, hemorrhage, or mass. No ventriculomegaly. No midline shift or herniation. Basal cisterns are patent. Tubbs-white matter differentiation is maintained. Large area of encephalomalacia redemonstrated compatible with large prior left MCA distribution infarct. Proportional prominence of the ventricles and sulcal spaces is consistent with mild volume loss. Patchy periventricular and deep white matter hypoattenuation is consistent with mild small vessel ischemic changes. No calvarial fracture or soft tissue abnormality.? The mastoid air cells and visualized portions of the paranasal sinuses are well aerated. CT/CT head/brain wo IV con IMPRESSION: ? 1. Encephalomalacia compatible with remote prior left MCA distribution infarct, unchanged. No acute edematous territorial infarct identified. 2. No intracranial hemorrhage, mass, or other acute intracranial abnormality. Discharge Plan Discharge Clinical Impression: Headache Patient Disposition: Home, Self-Care Instructions: Acute Headache (ED) Additional Instructions: Please follow-up with your primary care physician tomorrow. If you have any worsening or new symptoms, please return to the emergency room or call 911 Prescriptions: New acetaminophen 500 mg capsule 500 mg PO Q6H PRN (Reason: fever or pain) Qty: 20 0RF No Action atorvastatin 80 mg tablet 80 mg PO BEDTIME carvedilol 6.25 mg tablet 6.25 mg PO BID citalopram 10 mg tablet 10 mg PO DAILY mirtazapine 7.5 mg tablet 7.5 mg PO DAILY Eliquis 5 mg tablet 5 mg PO BID Entresto 49-51 mg Tablet 1 tab PO BID Qty: 30 0RF Protocol: Hold for SBP< HOLD for SBP < : 90 levetiracetam 500 mg Tablet 500 mg PO BID 30 Days Qty: 60 0RF bumetanide 1 mg tablet 1 mg PO DAILY PRN
[2022-01-15] MEDS: Metoclopramide HCl 10 MG/2 ML VIAL IVPUSH (16:54)
[2022-01-15] MEDS: Morphine Sulfate 4 MG/ML CARTRIDGE IVPUSH (16:54)
[2022-01-15] MEDS: diphenhydrAMINE HCL 50 MG/ML VIAL 25 MG IVPUSH (16:55)
== END 2022-01-15 18:44 | disposition home or self-care (01) ==
PROVIDERS: Emergency Provider Emergency Medicine
DX: R51.9 Headache, unspecified (principal); R20.2 Paresthesia of skin; Z79.899 Other long term (current) drug therapy
CPT/HCPCS: 70450; 96374; 96375; 99284; J1200; J2270; J2765

== ENCOUNTER 2022-01-27 21:54 | Inpatient (IN) | payer OTHER, SELFPAY ==
--- NOTE | ~2022-01-27 | XR_ITS ---
EXAMINATION: XR CHEST CLINICAL INFORMATION: Stroke COMPARISON: 09/08/2021 TECHNIQUE: Frontal view of the chest was obtained. FINDINGS: Single lead AICD overlies the left chest with lead in the right ventricular apex. Borderline cardiomegaly. Pulmonary venous congestion is noted. No appreciable pulmonary edema. Mild bibasilar atelectasis. No consolidation, pneumothorax, or pleural effusion. Mild degenerative spondylosis in the thoracic spine. XR/XR chest 1V IMPRESSION: Cardiomegaly with pulmonary venous congestion. No consolidation or significant pulmonary edema.
--- NOTE | ~2022-01-27 | CT_ITS ---
EXAMINATION: CTA NECK WITH CONTRAST (STROKE) CTA BRAIN WITH CONTRAST (STROKE) CLINICAL INFORMATION: Suspect acute stroke. Assess for major vessel occlusion. Please call report. COMPARISON: CT head 01/27/2022. CT head 07/05/2021, 01/15/2022. TECHNIQUE: CTA of the head and neck was performed in the axial plane from the mediastinum to the skull vertex using 70 mL Omnipaque 350 intravenous contrast. Additional reformatted multiplanar images including maximum intensity projection MIP images are generated on the CT workstation. This CT examination was performed using dose optimization techniques as appropriate, variously including the following: *Automated exposure control *Adjustment of mA and/or kV according to patient size (this includes techniques or standardized protocols for targeted exams where dose is matched to indication/reason for exam; i.e. extremities or head) *Use of iterative reconstruction technique DLP: 1713 mGy-cm FINDINGS: The degree of stenosis determined by criteria similar to NASCET. IV contrast and CT of the head: Extensive encephalomalacia is again noted throughout the expected territory of the left middle cerebral artery including the left insular lobe. Mild ex vacuo dilatation of the left lateral ventricle is again noted. No intrarenal hemorrhage, tumors or acute infarcts are identified. No abnormal enhancement of the brain parenchyma visualized. Atrophy of the left middle cerebral peduncle consistent with associated wallerian degeneration is identified. The orbits and globes are normal in appearance. No significant opacification of the visualized paranasal sinuses, mastoid air cells and middle ear cavities. CT angiography neck: Common origin of the brachiocephalic and left common carotid arteries is noted. The visualized transverse aorta is normal in caliber. The carotid bulbs are patent. The right vertebral artery is dominant. The cervical vertebral arteries are patent. CT angiography head: Minimal nonocclusive eccentric calcific plaque is present in the distal cavernous segment of the right internal carotid artery. Moderate irregular segmental narrowing of the M1 segment of the right middle cerebral artery is noted and is suspicious for intracranial atherosclerosis. Focal high-grade stenosis of the M2 segment of the immediate origin of the superior division of the right middle cerebral artery is visualized (series 12 image 110). This finding suspicious for intracranial atherosclerosis. Moderate segmental stenosis of the P1 and P2 segments of the right posterior cerebral artery is noted and mild segmental stenosis of the P1 and P2 segments of the left posterior cerebral artery is identified. Findings are suspicious for intracranial atherosclerosis. Partial visualization is made of a left pectoral pacer and pacer lead within the left subclavian vein. Partial visualization is made of small dependent layering bilateral pleural effusions and diffuse pulmonary vascular indistinctness suspicious for least mild interstitial pulmonary edema. Visualized heart is grossly normal in size. Within the visualized main and central pulmonary arteries, no gross intraluminal filling defects are identified. Partial visualization is made of multilevel anterior bridging osteophytosis of the thoracic spine. CT/CT angio head neck stroke IMPRESSION: CT angiography head: *No large vessel intracranial occlusions. *Findings suspicious for multifocal intracranial atherosclerosis. Findings are characterized by moderate segmental narrowing of the M1 segment of the right middle cerebral artery and focal high-grade stenosis of the origin of the superior division of the right middle cerebral artery. Additionally, moderate segmental stenosis of the P1 and P2 segments of the right posterior cerebral artery and mild segmental stenosis of the P1 and P2 segments of the left posterior cerebral artery are identified. CT angiography neck: *Patent carotid bulbs. No high-grade stenoses or dissections within the cervical carotid and vertebral artery systems. *Common origin of the brachiocephalic and left common carotid arteries. *Partially visualized small bilateral pleural effusions and findings suspicious for mild pulmonary edema. IV contrast-enhanced CT the head: *No acute intracranial abnormalities. *Extensive chronic encephalomalacia within the territory of the left middle cerebral artery consistent with the sequela of a remote infarct. This result was discussed with Lara Christianson MD by telephone at 01/27/2022 10:58 PM and it was ascertained that the content and urgency of the report was understood at the time of direct communication.
--- NOTE | ~2022-01-27 | CT_ITS ---
EXAMINATION: CT HEAD WITHOUT CONTRAST (STROKE PROTOCOL) CLINICAL INFORMATION: Evaluate right-sided weakness. COMPARISON: CT head 01/15/2022. CT head 07/05/2021. TECHNIQUE: Contiguous axial imaging was performed from the skull base to vertex without intravenous administration of contrast. This CT examination was performed using dose optimization techniques as appropriate, variously including the following: *Automated exposure control *Adjustment of mA and/or kV according to patient size (this includes techniques or standardized protocols for targeted exams where dose is matched to indication/reason for exam; i.e. extremities or head) *Use of iterative reconstruction technique DLP: 767 mGy-cm FINDINGS: Marked chronic encephalomalacia is again noted within the territory of the left middle cerebral artery involving both the superior and inferior divisions and the left insular lobe unchanged in extent compared with 01/15/2022. Mild ex vacuo dilatation of the left lateral ventricle is identified. No intracranial hemorrhage, tumors or acute infarcts are visualized. Aside from the area of encephalomalacia described above, mild diffuse commensurate prominence of ventricles and sulci is noted. Atrophy of the left cerebral peduncle consistent with wallerian degeneration is noted. The orbits and globes are normal in appearance. No significant opacification of the visualized paranasal sinuses, mastoid air cells and middle ear cavities. CT/CT head for stroke IMPRESSION: *No acute intercranial abnormalities. *Chronic extensive left middle cerebral artery territory encephalomalacia consistent with prior infarct.
[2022-01-27 22:00] VITALS: BP 140/80; O2SAT 98; BMI 28.1
--- NOTE | 2022-01-27 22:01 | ED_ITS ---
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 Patient last known to be normal was at 16:00 noted to have right-sided weakness with right facial droop patient is aware that could be a potential stroke unable to give a good reason why he delayed coming to the hospital, patient was seen at 22:00, patient with history of atrial fibrillation on Eliquis on arrival screening exam for stroke showed right facial droop with right upper and lower extremities drift. Patient overall is limited historian. Patient declined CP, SOB, abdominal pain, no fall. Patient had a history of old stroke left him with right-sided hemiparesis and mild aphasia normally able to ambulate with a cane last time he ambulated was yesterday. Patient also been getting exertional shortness of breath while his walking also describe paroxysmal nocturnal dyspnea. Related Data Home Medications Medication Instructions Recorded Confirmed apixaban 5 mg tablet (Eliquis) 5 mg PO BID 07/02/21 12/25/21 atorvastatin 80 mg tablet 80 mg PO BEDTIME 07/02/21 12/25/21 carvedilol 6.25 mg tablet 6.25 mg PO BID 07/02/21 12/25/21 citalopram 10 mg tablet 10 mg PO DAILY 07/02/21 12/25/21 mirtazapine 7.5 mg tablet 7.5 mg PO DAILY 07/02/21 12/25/21 bumetanide 1 mg tablet 1 mg PO DAILY PRN 10/22/21 12/25/21 Previous Rx's Medication Instructions Recorded levetiracetam 500 mg tablet 500 mg PO BID 30 days #60 tabs 07/09/21 sacubitril 49 mg-valsartan 51 mg 1 tab PO BID #30 tabs 07/09/21 tablet (Entresto) acetaminophen 500 mg capsule 500 mg PO Q6H PRN fever or pain 01/15/22 #20 caps Allergies Allergy/AdvReac Type Severity Reaction Status Date / Time No Known Allergies Allergy Verified 12/25/21 14:47 [No Known Allergies*] Review of Systems Review of Systems: All other systems are reviewed and are negative Constitutional: Reports as per HPI and Reports no additional constitutional complaints Eyes: Reports as per HPI and Reports no additional eye complaints Reports system reviewed and no additional complaints, except as documented Cardiovascular: Reports as per HPI and Reports no additional cardiovascular complaints Respiratory: Reports as per HPI and Reports no additional respiratory complaints Gastrointestinal: Reports as per HPI and Reports no additional gastrointestinal complaints Genitourinary: Reports no additional female genitourinary complaints Musculoskeletal: Reports no additional musculoskeletal complaints Skin/Breast: Reports system reviewed and no additional complaints, except as docu Psychiatric: Reports no additional psychiatric complaints Endocrine: Reports no additional endocrine complaints Hematologic/Lymphatic: Reports no additional hematologic/lymphatic complaints Allergic/Immunologic: Reports no additional allergic/immunologic complaints Reports system reviewed and no additional complaints, except as documented and Reports Abnormal speech present [facility] Past Medical History Medical History Cardiac defibrillator in place CHF (congestive heart failure) CHF (congestive heart failure) Chronic systolic heart failure CKD (chronic kidney disease), stage II CVA (cerebral vascular accident) Embolism of kidney Gallstones Hypertension NICM (nonischemic cardiomyopathy) NSVT (nonsustained ventricular tachycardia) Persistent atrial fibrillation Renal infarct Surgical History History of cardiac defibrillator placement Family History Family History Other CAD (coronary artery disease) Social History Social History Household Members: Spouse Housing: House Do you presently have visiting nurse or other home services: No Alcohol intake: never Patient Tobacco Use Status: Never used Tobacco Advance Directives: Yes Advance Directives on File: Yes Advance Directives Date on File: 10/18/20 service: Yes Current occupational status: employed Physical Exam Vital Signs: Vital Signs: Last Vital Signs Temp 98.0 F 01/28/22 00:15 Pulse 92 01/28/22 00:15 Resp 26 H 01/28/22 00:15 BP 155/114 H 01/28/22 00:15 Pulse Ox 95 01/28/22 00:15 O2 Del Method 01/28/22 00:15 BMI result Body Mass Index 28.1 Vital signs have been reviewed as appeared to be correct. Blood pressure normal. Heart rate normal. Respiration rate normal. Temperature normal. Oxygen saturation normal. Appearance: Alert. Oriented X3. No acute distress. Head: Normal external exam. Normocephalic. Atraumatic. No Gallardo signs noted. No raccoon eyes noted Eyes: PERRLA. EOMI. Conjunctiva and sclera normal. Eyelids normal. ENT: TM's Normal. Pharynx normal. Uvula midline. Moist mucous membranes. No trismus noted. No drooling noted. No muffled voice noted. Neck: Normal inspection. Neck supple. FROM. No adenopathy. Thyroid Normal. No meningeal signs. No neck mass noted. CVS: Normal heart rate and rhythm. Heart sound normal. No murmurs noted. Pulses normal throughout. Respiratory: No respiratory distress. Painless inspiration. Breath sounds normal. No wheezes/rales/rhonchi noted. Chest nontender. No accessory muscle usage noted or decreased air movement noted. Abdomen: Soft and nontender. Bowel sounds normal in all 4 quadrants. No distention noted. No organomegaly noted. No visible injury noted. Back: No CVA tenderness. Full range of motion noted. Skin: Skin warm and dry. Normal skin color. Normal skin turgor. No rashes/ lesions/lacerations noted. Extremities: No lower extremity edema. Extremities exhibit normal range of motion. Extremities nontender. Neuro: Referred to NIH score Course Course Course Narrative: 61-year-old male with history of CVA and residual right hemiparesis with aphasia came in with worsening of right-sided weakness. 1. Due to delayed presentation after the onset of symptoms and patient being on anticoagulation for AFib with Eliquis patient is not a candidate for thrombolysis therapy. No acute major cerebral artery occlusion patient is not a candidate for mechanical thrombectomy either. Will just give 1 dose of aspirin in the ED. 2. Patient was symptomatic congestive heart failure will start diuresis in the ED. Will admit for further management. MDM - Neuro Symptoms/Deficit Medical Records Attestation: I reviewed the patient's medical records. Lab Data Attestation: I reviewed the patient's lab results. Result diagrams: 01/27/22 23:41 01/27/22 23:41 Labs: Lab Results 01/27/22 01/27/22 01/27/22 Range/Units 23:38 23:41 23:41 WBC 5.1 (4.8-10.8) X10*3/uL RBC 4.23 L (4.60-5.80) X10*6/uL Hgb 13.0 L (14.0-18.0) g/dl Hct 38.9 L (42.0-52.0) % MCV 92.0 (80.0-98.0) fL MCH 30.7 (27.0-33.0) pg MCHC 33.4 (31.0-36.0) g/dl RDW 13.9 (11.0-16.0) % Plt Count 229 (160-400) X10*3/uL MPV 10.9 (9.4-12.4) fL Immature Gran % (Auto) 0.2 (0.0-0.4) % Neut % (Auto) 42.4 L (45-73) % Lymph % (Auto) 41.0 H (20-40) % [place] % (Auto) 12.7 H (2-11) % Eos % (Auto) 2.9 (0-4) % Baso % (Auto) 0.8 (0-2) % Lymph # (Auto) 2.1 (1.2-4.9) X10*3/uL [place] # (Auto) 0.7 (0.1-1.2) X10*3/uL Eos # (Auto) 0.2 (0.0-0.4) X10*3/uL Baso # (Auto) 0.0 (0.0-0.2) X10*3/uL Abs Immat Gran (auto) 0.01 (0.00-0.03) X10*3/uL Absolute Neuts (auto) 2.2 (2.0-8.3) x10*3/uL Absolute Nucleated RBC 0.000 (0.0-0.012) X10*3/uL Nucleated RBC % (auto) 0.0 (0.0-0.2) /100WBC PT 18.2 H (10.0-13.1) SEC INR 1.6 H (0.9-1.1) APTT 37.9 H (26.0-36.4) SEC Sodium (135-145) mmol/L Potassium (3.3-5.1) mmol/L Chloride (96-108) mmol/L Carbon Dioxide (22-29) mmol/L Anion Gap (12-20) BUN (9-16) mg/dL Creatinine (0.5-1.4) mg/dL Estim Creat Clear Calc Estimated GFR Random Glucose (60-115) mg/dL Calcium (8.4-10.2) mg/dL Total Creatine Kinase (38-174) U/L Troponin I High Sens (<3.5-35.0) ng/L B-Natriuretic Peptide (<100) pg/mL COVID-19 ([facility]) Negative (Negative) COVID-19 Clin Com See Note 01/27/22 01/27/22 Range/Units 23:41 23:41 WBC (4.8-10.8) X10*3/uL RBC (4.60-5.80) X10*6/uL Hgb (14.0-18.0) g/dl Hct (42.0-52.0) % MCV (80.0-98.0) fL MCH (27.0-33.0) pg MCHC (31.0-36.0) g/dl RDW (11.0-16.0) % Plt Count (160-400) X10*3/uL MPV (9.4-12.4) fL Immature Gran % (Auto) (0.0-0.4) % Neut % (Auto) (45-73) % Lymph % (Auto) (20-40) % [place] % (Auto) (2-11) % Eos % (Auto) (0-4) % Baso % (Auto) (0-2) % Lymph # (Auto) (1.2-4.9) X10*3/uL [place] # (Auto) (0.1-1.2) X10*3/uL Eos # (Auto) (0.0-0.4) X10*3/uL Baso # (Auto) (0.0-0.2) X10*3/uL Abs Immat Gran (auto) (0.00-0.03) X10*3/uL Absolute Neuts (auto) (2.0-8.3) x10*3/uL Absolute Nucleated RBC (0.0-0.012) X10*3/uL Nucleated RBC % (auto) (0.0-0.2) /100WBC PT (10.0-13.1) SEC INR (0.9-1.1) APTT (26.0-36.4) SEC Sodium 144 (135-145) mmol/L Potassium 4.1 (3.3-5.1) mmol/L Chloride 112 H (96-108) mmol/L Carbon Dioxide 19 L (22-29) mmol/L Anion Gap 17 (12-20) BUN 21 H (9-16) mg/dL Creatinine 1.45 H (0.5-1.4) mg/dL Estim Creat Clear Calc 53.3 Estimated GFR 49 Random Glucose 84 (60-115) mg/dL Calcium 8.7 (8.4-10.2) mg/dL Total Creatine Kinase 57 (38-174) U/L Troponin I High Sens 20.6 (<3.5-35.0) ng/L B-Natriuretic Peptide 1642 H (<100) pg/mL COVID-19 ([facility]) (Negative) COVID-19 Clin Com Imaging Data Chest x-ray: Attestation: I personally reviewed and interpreted this imaging study as follows: Radiologist's impression: Cardiomegaly with pulmonary venous congestion. No consolidation or significant pulmonary edema. ? CT head: Attestation: I personally reviewed and interpreted this imaging study as follows: Radiologist's impression: *No acute intercranial abnormalities. *Chronic extensive left middle cerebral artery territory encephalomalacia consistent with prior infarct. CT angiogram of head and neck: Attestation: I personally reviewed and interpreted this imaging study as follows: Radiologist's impression: *No acute intracranial abnormalities. *Extensive chronic encephalomalacia within the territory of the left middle cerebral artery consistent with the sequela of a remote infarct. ? ECG Data Attestation: I personally reviewed and interpreted this ECG as follows: Interpretation: Atrial fibrillation at 95 beats per minutes, left bundle-branch block, no ST-T changes. NIH Stroke Scale Time: 22:06 Level of Consciousness: Alert Level of Consciousness Questions: Answers both questions correctly Level of Consciousness Commands: Performs both tasks correctly Best Gaze: Normal Visual: No visual loss Facial Palsy: Partial paralysis Motor Arm (Right): Some effort against gravity Motor Arm (Left): No drift Motor Leg (Right): Some effort against gravity Motor Leg (Left): No drift Limb Ataxia: Absent Sensory: Mild to moderate sensory loss Best Language: Mild to moderate aphasia Dysarthia: Normal Extinction and Inattention: No abnormality Score: 8 Discharge Plan Discharge Clinical Impression: Cerebrovascular accident, Congestive heart failure Patient Disposition: Admitted As Inpatient
[2022-01-27] MEDS: iohexoL 350 MG/ML 100 ML INFUS..BTL IV (22:30)
[2022-01-27 23:00] VITALS: BP 139/95; PULSE 86; RESP 16; TEMP 36.5; O2SAT 97
[2022-01-27] MEDS: Furosemide 40 MG/4 ML VIAL IVPUSH (23:46)
[2022-01-27 23:47] LABS: MANUAL DIFF FLAG NO
[2022-01-27 23:49] LABS: Basophils Percent Auto 0.8 % (0-2); Eosinophils Absolute Auto 0.2 X10*3/uL (0.0-0.4); Eosinophils Percent Auto 2.9 % (0-4); Hematocrit 38.9 % (42.0-52.0); Imm Gran Abs Auto 0.01 X10*3/uL (0.00-0.03); Imm Gran Pct Auto 0.2 % (0.0-0.4); Lymphocytes Absolute Auto 2.1 X10*3/uL (1.2-4.9); Mean Corpuscular HGB Conc 33.4 g/dl (31.0-36.0); Mean Corpuscular Hemoglobin 30.7 pg (27.0-33.0); Mean Platelet Volume 10.9 fL (9.4-12.4); Monocytes Absolute Auto 0.7 X10*3/uL (0.1-1.2); Monocytes Percent Auto 12.7 % (2-11); Neutrophils Absolute Auto 2.2 x10*3/uL (2.0-8.3); Neutrophils Percent Auto 42.4 % (45-73); Platelet Count 229 X10*3/uL (160-400); Red Blood Count 4.23 X10*6/uL (4.60-5.80); Red Cell Distribution Width 13.9 % (11.0-16.0); White Blood Count 5.1 X10*3/uL (4.8-10.8)
[2022-01-27 23:56] LABS: INTERNATIONAL NORM RATIO 1.6 (0.9-1.1); Prothrombin Time 18.2 SEC (10.0-13.1)
[2022-01-27 23:59] LABS: Partial Thromboplastin Time 37.9 SEC (26.0-36.4)
[2022-01-28] VITALS (7 sets, daily range): BP systolic 133–170; BP diastolic 78–114; PULSE 75–92; RESP 15–28; TEMP 36.4–36.7; O2SAT 95–99
--- NOTE | 2022-01-28 | ECG_ITS ---
Test Reason : STROKE Blood Pressure : / mmHG Vent. Rate : 078 BPM Atrial Rate : 340 BPM P-R Int : 000 ms QRS Dur : 126 ms QT Int : 406 ms P-R-T Axes : 000 -09 153 degrees QTc Int : 462 ms Atrial flutter with variable A-V block Non-specific intra-ventricular conduction block Cannot rule out Septal infarct (cited on or before 02-JUL-2021) T wave abnormality, consider lateral ischemia Abnormal ECG When compared with ECG of 28-JAN-2022 06:05, Atrial flutter has replaced Atrial fibrillation Referred By: Behzad Bro Electronically Signed By:GENNY FERRIS
[2022-01-28 00:07] LABS: COVID-19 Test Negative (Negative)
[2022-01-28 00:08] LABS: Anion Gap 17 (12-20); Blood Urea Nitrogen 21 mg/dL (9-16); Calcium 8.7 mg/dL (8.4-10.2); Carbon Dioxide 19 mmol/L (22-29); Chloride 112 mmol/L (96-108); Creatinine Clr Calc Pharmacy 53.3; Estimated Glomerular Filt Rate 49; Glucose Random 84 mg/dL (60-115); Potassium 4.1 mmol/L (3.3-5.1); Sodium 144 mmol/L (135-145)
[2022-01-28 00:12] LABS: B Type Natriuretic Peptide 1642 pg/mL (<100); Troponin-I High Sensitivity 20.6 ng/L (<3.5-35.0)
[2022-01-28 00:27] LABS: Stroke Lab Use COMPLETE
[2022-01-28] MEDS: Aspirin 81 MG TAB.CHEW PO (01:06)
--- NOTE | 2022-01-28 03:53 | PC.NURSE ---
Pt is alert, oriented to self.Difficulty expressing needs, stuttering frequently. Right sided weakness and facial droop noted. Skin color normal for ethnicity, warm and dry. Afb on tele with PVCs. VSS.
--- NOTE | 2022-01-28 06:01 | ECG_ITS ---
Test Reason : seizure Blood Pressure : / mmHG Vent. Rate : 074 BPM Atrial Rate : 000 BPM P-R Int : 000 ms QRS Dur : 136 ms QT Int : 416 ms P-R-T Axes : 000 -05 154 degrees QTc Int : 461 ms Atrial fibrillation with premature ventricular or aberrantly conducted complexes Non-specific intra-ventricular conduction block Cannot rule out Septal infarct (cited on or before 02-JUL-2021) T wave abnormality, consider lateral ischemia Abnormal ECG When compared with ECG of 27-JAN-2022 22:52, No significant change was found Referred By: Lara Christianson Electronically Signed By:GENNY FERRIS
--- NOTE | 2022-01-28 06:27 | P.HPHOSP_ITS ---
History of Present Illness Date of Service: 01/28/22 Chief Complaint: Headaches 61-year-old male with a past medical history of hypertension, hyperlipidemia, CAD, nonischemic cardiomyopathy status post AICD, CVA-resultant mild right-sided residual weakness, CKD, kidney embolism, AFib, renal infarct presented to the hospital with a chief complaint of right-sided weakness. Patient is a poor historian. Spoke to the patient, patient's significant other over the phone. Also obtained history from the ER staff and records. Reportedly patient has been complaining of right-sided weakness and headaches over the past 1 day. Not feeling well. Subsequently patient was sent to the hospital for further evaluation. Per patient's family patient did not have any difficulty swallowing, has been complaint with his home medications. Denies having any falls. Patient denies any chest pain, palpitations, lightheadedness, dizziness, falls or trauma. Denies any abdominal discomfort, nausea vomiting or diarrhea. Denies any urinary symptoms. Review of all other systems is negative except mentioned above ER course: Per ER team, patient reportedly has mild right-sided residual weakness from prior CVA, today has slightly increased weakness; CT head and CT angio head and neck showed no acute findings; patient was also noted to be in AFib with rapid ventricular response; Chest x-ray showed mild congestion; saturating 98% on room air; admitted to the hospital for further management [facility] Medical History Cardiac defibrillator in place CHF (congestive heart failure) CHF (congestive heart failure) Chronic systolic heart failure CKD (chronic kidney disease), stage II CVA (cerebral vascular accident) Embolism of kidney Gallstones Hypertension NICM (nonischemic cardiomyopathy) NSVT (nonsustained ventricular tachycardia) Persistent atrial fibrillation Renal infarct Family History Other CAD (coronary artery disease) Surgical History History of cardiac defibrillator placement Social History Household Members: Spouse Housing: House Do you presently have visiting nurse or other home services: No Alcohol intake: never Patient Tobacco Use Status: Never used Tobacco Advance Directives: Yes Advance Directives on File: Yes Advance Directives Date on File: 10/18/20 service: Yes Current occupational status: employed Meds Allergies Allergy/AdvReac Type Severity Reaction Status Date / Time No Known Allergies Allergy Verified 12/25/21 14:47 [No Known Allergies*] Active Medications: Current Medications Acetaminophen (Acetaminophen 325 Mg Tablet) 650 mg PO Q6H PRN PRN Reason: Pain, Mild (Pain Scale 1-3) Melatonin (Melatonin 3 Mg Tablet) 6 mg PO BEDTIME PRN PRN Reason: Insomnia Senna (Sennosides 8.6 Mg Tablet) 17.2 mg PO BEDTIME PRN PRN Reason: Constipation Sodium Chloride (0.9 % Sodium Chloride Flush 3 Ml Syringe) 3 ml IVFLUSH [facility] Home Medications Medication Instructions Recorded Confirmed Last Taken Type apixaban 5 mg tablet (Eliquis) 5 mg PO BID 07/02/21 12/25/21 09/08/21 History atorvastatin 80 mg tablet 80 mg PO BEDTIME 07/02/21 12/25/21 09/07/21 History carvedilol 6.25 mg tablet 6.25 mg PO BID 07/02/21 12/25/21 09/08/21 History citalopram 10 mg tablet 10 mg PO DAILY 07/02/21 12/25/21 Unknown History mirtazapine 7.5 mg tablet 7.5 mg PO DAILY 07/02/21 12/25/21 Unknown History bumetanide 1 mg tablet 1 mg PO DAILY PRN 10/22/21 12/25/21 Unknown History Physical Exam Vital Signs and Narrative: Vital Signs: Last Vital Signs Temp 97.6 F 01/28/22 05:58 Pulse 82 01/28/22 05:58 Resp 28 H 01/28/22 05:58 BP 154/88 H 01/28/22 05:58 Pulse Ox 98 01/28/22 05:58 O2 Del Method 01/28/22 05:58 BMI result Body Mass Index 28.1 Gen: Appears be in no acute distress HEENT: NCAT, Moist mucosa. Pulmonary: Vesicular breath sounds, fair air entry CVS: Normal S1-S2 Abdomen: BS+, Soft, Nontender Extremities: Warm well perfused Neuro: Alert and awake. Sensations slightly decreased on the right side compared to the left side. Strength-4/5 in right upper and lower extremities; 5/5 in left upper and lower extremities. Results Labs CBC and Chem 7: 01/27/22 23:41 01/27/22 23:41 Labs: Laboratory Results - last 24 hr 01/27/22 01/27/22 01/27/22 23:38 23:41 23:41 MCV 92.0 MCH 30.7 MCHC 33.4 RDW 13.9 Plt Count 229 MPV 10.9 Immature Gran % (Auto) 0.2 Neut % (Auto) 42.4 L Lymph % (Auto) 41.0 H [place] % (Auto) 12.7 H Eos % (Auto) 2.9 Baso % (Auto) 0.8 Lymph # (Auto) 2.1 [place] # (Auto) 0.7 Eos # (Auto) 0.2 Baso # (Auto) 0.0 Abs Immat Gran (auto) 0.01 Absolute Neuts (auto) 2.2 Absolute Nucleated RBC 0.000 Nucleated RBC % (auto) 0.0 PT 18.2 H INR 1.6 H APTT 37.9 H Anion Gap Estim Creat Clear Calc Estimated GFR Random Glucose Calcium Total Creatine Kinase Troponin I High Sens B-Natriuretic Peptide COVID-19 ([facility]) Negative COVID-19 Clin Com See Note 01/27/22 01/27/22 23:41 23:41 MCV MCH MCHC RDW Plt Count MPV Immature Gran % (Auto) Neut % (Auto) Lymph % (Auto) [place] % (Auto) Eos % (Auto) Baso % (Auto) Lymph # (Auto) [place] # (Auto) Eos # (Auto) Baso # (Auto) Abs Immat Gran (auto) Absolute Neuts (auto) Absolute Nucleated RBC Nucleated RBC % (auto) PT INR APTT Anion Gap 17 Estim Creat Clear Calc 53.3 Estimated GFR 49 Random Glucose 84 Calcium 8.7 Total Creatine Kinase 57 Troponin I High Sens 20.6 B-Natriuretic Peptide 1642 H COVID-19 ([facility]) COVID-19 Clin Com Imaging Radiologist's Impressions: Impressions Head CT 01/27/22 22:07 IMPRESSION: *No acute intercranial abnormalities. *Chronic extensive left middle cerebral artery territory encephalomalacia consistent with prior infarct. Head/Neck CTA 01/27/22 22:34 IMPRESSION: CT angiography head: *No large vessel intracranial occlusions. *Findings suspicious for multifocal intracranial atherosclerosis. Findings are characterized by moderate segmental narrowing of the M1 segment of the right middle cerebral artery and focal high-grade stenosis of the origin of the superior division of the right middle cerebral artery. Additionally, moderate segmental stenosis of the P1 and P2 segments of the right posterior cerebral artery and mild segmental stenosis of the P1 and P2 segments of the left posterior cerebral artery are identified. CT angiography neck: *Patent carotid bulbs. No high-grade stenoses or dissections within the cervical carotid and vertebral artery systems. *Common origin of the brachiocephalic and left common carotid arteries. *Partially visualized small bilateral pleural effusions and findings suspicious for mild pulmonary edema. IV contrast-enhanced CT the head: *No acute intracranial abnormalities. *Extensive chronic encephalomalacia within the territory of the left middle cerebral artery consistent with the sequela of a remote infarct. This result was discussed with Lara Christianson MD by telephone at 01/27/2022 10:58 PM and it was ascertained that the content and urgency of the report was understood at the time of direct communication. Chest X-Ray 01/27/22 22:38 IMPRESSION: Cardiomegaly with pulmonary venous congestion. No consolidation or significant pulmonary edema. Assessment and Plan (1) Atrial fibrillation with rapid ventricular response: Status: Acute Plan 61-year-old male with a past medical history of hypertension, hyperlipidemia, CAD, nonischemic cardiomyopathy status post AICD, CVA-resultant mild right-sided residual weakness, CKD, kidney embolism, AFib, renal infarct presented to the hospital with a chief complaint of right-sided weakness. Headache/right-sided weakness: CT head and CT angio head and neck showed no acute findings. Likely recrudescence of the old stroke Neuro checks Fall precautions PT/OT/speech and swallow eval Neurology consult CHF: Chest x-ray showed mild congestion. Patient currently saturating 98% on room air. Continue home Bumex. Rapid AFib: Heart rate currently improving. Continue home carvedilol,, Eliquis. History of seizures: Continue home Keppra History of depression: Continue home mirtazapine, citalopram DVT prophylaxis: Patient on Eliquis Code status: Full code Quality Stroke Does the patient have a stroke diagnosis?: No VTE Prior VTE?: No VTE Risk Level:: Medical - moderate - high VTE Device Contraindication: Treatment Not Indicated VTE Drug Contraindication: N/A - Med Ordered
[2022-01-28] MEDS: 0.9 % Sodium Chloride Flush 3 ML SYRINGE IVFLUSH ×2 (07:57→15:22)
[2022-01-28 09:22] LABS: ~PT, ~INR - Anti Coag Clinic 1.3 (0.9-1.1)
--- NOTE | 2022-01-28 09:45 | PM.CNCAR ---
History of Present Illness History of Present Illness Date of Service: 01/28/22 Requesting physician: Manan Bateman Consult reason: congestive heart failure Chief complaint: Rapid afib Narrative: I was consulted to see holds a in cardiology consultation today for atrial fibrillation rapid ventricular response as well as heart failure. Donny is unfortunate 60-year-old male with prior history of severe cardiomyopathy, nonischemic LVEF of 10-15%, persistent atrial fibrillation, ICD placement, hypertension, CVA which has left him with aphasia and right-sided weakness. History was obtained with help of engine repairer production and history mostly provided by the . Patient is somewhat frustrated with his overall medical condition but able to provide some symptoms and history and verified the history provided by the . Yesterda notice that patient was walking and was more short of breath than usual and then asked if she was feeling okay and he said that he was having headache and she given Tylenol. Despite that the headache persisted and call ambulance. The EMT noted that he was having elevated blood pressure and hypoxemia and was therefore brought to the emergency room. Emergency was noted to have elevated BNP in the 1600 range along with elevated blood pressure noted to be in atrial fibrillation with rapid ventricular response and decompensated heart failure. He continues to have headache which is mildly improved. He has had no increased weakness in his right side. is notice that when he was going for PT and he was walking across the hallway he noted significantly elevated blood pressure and as a result was getting short of breath. He denies any palpitations. Denies any orthopnea. Denies any lightheadedness, syncope. He has been taking all his medications as per the including the oral anticoagulant, other heart failure medications, diuretics as well as his antiepileptic medications. Reviewing patient's med list in the hospital he is currently not receiving any Coreg or Entresto or Eliquis. He has received IV Lasix 40 mg. Intake and output chart not monitored. Review of Systems Constitutional: Constitutional: Reports no additional constitutional complaints and Reports headache(s) Eyes: Eyes: Reports no additional eye complaints ENT: Reports headache(s) Cardiovascular: Cardiovascular: Denies chest pain, Denies leg edema, Denies lightheadedness, Denies Loss of Consciousness, Denies palpitations and Reports dyspnea on exertion Respiratory: Respiratory: Reports no additional respiratory complaints and Reports dyspnea on exertion Gastrointestinal: Gastrointestinal: Reports no additional gastrointestinal complaints Genitourinary: Genitourinary: Reports no additional male genitourinary complaints Musculoskeletal: Musculoskeletal: Reports no additional musculoskeletal complaints Integumentary/Breasts: Skin/Breast: Reports system reviewed and no additional complaints, except as docu Neurologic: Reports headache(s) Psychiatric: Psychiatric: Reports no additional psychiatric complaints Endocrine: Endocrine: Reports no additional endocrine complaints and Denies palpitations Hematologic/Lymphatic: Hematologic/Lymphatic: Reports no additional hematologic/lymphatic complaints Allergic/Immunologic: Allergic/Immunologic: Reports no additional allergic/immunologic complaints [facility] Past Medical History Medical History Cardiac defibrillator in place CHF (congestive heart failure) CHF (congestive heart failure) Chronic systolic heart failure CKD (chronic kidney disease), stage II CVA (cerebral vascular accident) Embolism of kidney Gallstones Hypertension NICM (nonischemic cardiomyopathy) NSVT (nonsustained ventricular tachycardia) Persistent atrial fibrillation Renal infarct Family History Family History Other CAD (coronary artery disease) Surgical History Surgical History History of cardiac defibrillator placement Social History Social History Household Members: Spouse Housing: House Do you presently have visiting nurse or other home services: No Alcohol intake: never Patient Tobacco Use Status: Never used Tobacco Advance Directives: Yes Advance Directives on File: Yes Advance Directives Date on File: 10/18/20 service: Yes Current occupational status: employed Meds Allergies Allergy/AdvReac Type Severity Reaction Status Date / Time No Known Allergies Allergy Verified 12/25/21 14:47 [No Known Allergies*] Active Medications: Current Medications Acetaminophen (Acetaminophen 325 Mg Tablet) 650 mg PO Q6H PRN PRN Reason: Pain, Mild (Pain Scale 1-3) Melatonin (Melatonin 3 Mg Tablet) 6 mg PO BEDTIME PRN PRN Reason: Insomnia Pharmacy Consult (Consult Rx Perform Med Rec) 1 each MISCELLANE ONCE PRN PRN Reason: Consult order Senna (Sennosides 8.6 Mg Tablet) 17.2 mg PO BEDTIME PRN PRN Reason: Constipation Sodium Chloride (0.9 % Sodium Chloride Flush 3 Ml Syringe) 3 ml IVFLUSH QSHIFT [facility] Last Admin: 01/28/22 07:57 Dose: 3 ml Home Medications Medication Instructions Recorded Confirmed Last Taken Type apixaban 5 mg tablet (Eliquis) 5 mg PO BID 07/02/21 12/25/21 09/08/21 History atorvastatin 80 mg tablet 80 mg PO BEDTIME 07/02/21 12/25/21 09/07/21 History carvedilol 6.25 mg tablet 6.25 mg PO BID 07/02/21 12/25/21 09/08/21 History citalopram 10 mg tablet 10 mg PO DAILY 07/02/21 12/25/21 Unknown History mirtazapine 7.5 mg tablet 7.5 mg PO DAILY 07/02/21 12/25/21 Unknown History bumetanide 1 mg tablet 1 mg PO DAILY PRN 10/22/21 12/25/21 Unknown History Physical Exam Vital Signs: Vital Signs: Last Vital Signs Temp 97.6 F 01/28/22 05:58 Pulse 87 01/28/22 07:53 Resp 16 01/28/22 07:53 BP 158/107 H 01/28/22 07:53 Pulse Ox 98 01/28/22 07:53 O2 Del Method 01/28/22 07:53 BMI result Body Mass Index 28.1 Const: General: cooperative, comfortable, no acute distress, alert and awake Nutritional Appearance: average body habitus Orientation/consciousness: patient oriented x3 HEENT: Head: Yes normocephalic Neck: Neck: Yes trachea midline, Yes supple and Yes no JVD (Mild HJR) Resp: Effort & Inspection: normal respiratory effort Auscultation: clear to auscultation bilaterally Cardio: Palpation: abnormal PMI displaced PMI Rate: tachycardic Rhythm: abnormal rhythm irregularly irregular Heart sounds: S1 normal heart sound present, S2 normal heart sound present, no click, no gallops, no murmurs and no rubs GI: Auscultation: normal bowel sounds Skin: General skin exam: no rashes or lesions noted Neuro: General: patient oriented x3 and other (Right hemiparesis and aphasia) Extrem: General: Yes edema (Right lower extremity edema) Objective Labs and Meds Result diagrams: 01/27/22 23:41 01/27/22 23:41 Lab results: Laboratory Results - last 24 hr 01/27/22 01/27/22 01/27/22 22:01 23:38 23:41 WBC 5.1 RBC 4.23 L Hgb 13.0 L Hct 38.9 L MCV 92.0 MCH 30.7 MCHC 33.4 RDW 13.9 Plt Count 229 MPV 10.9 Immature Gran % (Auto) 0.2 Neut % (Auto) 42.4 L Lymph % (Auto) 41.0 H [place] % (Auto) 12.7 H Eos % (Auto) 2.9 Baso % (Auto) 0.8 Lymph # (Auto) 2.1 [place] # (Auto) 0.7 Eos # (Auto) 0.2 Baso # (Auto) 0.0 Abs Immat Gran (auto) 0.01 Absolute Neuts (auto) 2.2 Absolute Nucleated RBC 0.000 Nucleated RBC % (auto) 0.0 PT Whole Blood PT 16.0 H INR Whole Blood INR 1.3 H APTT Sodium Potassium Chloride Carbon Dioxide Anion Gap BUN Creatinine Estim Creat Clear Calc Estimated GFR Random Glucose Calcium Total Creatine Kinase Troponin I High Sens B-Natriuretic Peptide COVID-19 ([facility]) Negative COVID-19 Clin Com See Note 01/27/22 01/27/22 01/27/22 23:41 23:41 23:41 WBC RBC Hgb Hct MCV MCH MCHC RDW Plt Count MPV Immature Gran % (Auto) Neut % (Auto) Lymph % (Auto) [place] % (Auto) Eos % (Auto) Baso % (Auto) Lymph # (Auto) [place] # (Auto) Eos # (Auto) Baso # (Auto) Abs Immat Gran (auto) Absolute Neuts (auto) Absolute Nucleated RBC Nucleated RBC % (auto) PT 18.2 H Whole Blood PT INR 1.6 H Whole Blood INR APTT 37.9 H Sodium 144 Potassium 4.1 Chloride 112 H Carbon Dioxide 19 L Anion Gap 17 BUN 21 H Creatinine 1.45 H Estim Creat Clear Calc 53.3 Estimated GFR 49 Random Glucose 84 Calcium 8.7 Total Creatine Kinase 57 Troponin I High Sens 20.6 B-Natriuretic Peptide 1642 H COVID-19 ([facility]) COVID-19 Clin Com Imaging Radiologist's impression: Impressions Head CT 01/27/22 22:07 IMPRESSION: *No acute intercranial abnormalities. *Chronic extensive left middle cerebral artery territory encephalomalacia consistent with prior infarct. Head/Neck CTA 01/27/22 22:34 IMPRESSION: CT angiography head: *No large vessel intracranial occlusions. *Findings suspicious for multifocal intracranial atherosclerosis. Findings are characterized by moderate segmental narrowing of the M1 segment of the right middle cerebral artery and focal high-grade stenosis of the origin of the superior division of the right middle cerebral artery. Additionally, moderate segmental stenosis of the P1 and P2 segments of the right posterior cerebral artery and mild segmental stenosis of the P1 and P2 segments of the left posterior cerebral artery are identified. CT angiography neck: *Patent carotid bulbs. No high-grade stenoses or dissections within the cervical carotid and vertebral artery systems. *Common origin of the brachiocephalic and left common carotid arteries. *Partially visualized small bilateral pleural effusions and findings suspicious for mild pulmonary edema. IV contrast-enhanced CT the head: *No acute intracranial abnormalities. *Extensive chronic encephalomalacia within the territory of the left middle cerebral artery consistent with the sequela of a remote infarct. This result was discussed with Lara Christianson MD by telephone at 01/27/2022 10:58 PM and it was ascertained that the content and urgency of the report was understood at the time of direct communication. Chest X-Ray 01/27/22 22:38 IMPRESSION: Cardiomegaly with pulmonary venous congestion. No consolidation or significant pulmonary edema. Assessment and Plan (1) Acute decompensated heart failure: Status: Acute Patient presents with acute heart failure with elevated BNP, elevated creatinine most likely due to poor renal perfusion cardiorenal syndrome. Currently not overtly in significant heart failure at this point time. Will continue IV Lasix diuresis with strict intake and output chart. Eventually switch him to p.o. bumetanide. Heart failure education to be provided. Most likely cause for his heart failure appears to be uncontrolled blood pressure. This needs to be better controlled. Increase carvedilol to 12.5 mg b.i.d.. Continue Entresto at current dose given his renal function and will further uptitrate medications as we go along including Entresto. Also will add Aldactone depending on his response to diuretics and current treatment plan with his renal function. Management discussed with patient and patient's at bedside with help of engine repairer production. They understand agree. (2) Atrial fibrillation with rapid ventricular response: Status: Acute Atrial fibrillation rapid ventricular response most likely due to patient being unhappy being in the hospital as well as probably in adequate rate control with carvedilol. Increase carvedilol to 12.5 mg b.i.d.. If blood pressures control and heart rate still elevated can consider adding digoxin therapy. Continue full oral anticoagulation with Eliquis, very high risk for stroke. Given that present neurologic symptoms aspirin has been added, however I do not see any clear role for aspirin as his imaging did not show any evidence of stroke. (3) Uncontrolled hypertension: Status: Acute Uncontrolled hypertension which is currently not optimized increase carvedilol as above. Will further up titrate as needed. Also further uptitrate Entresto depending on renal function. Continue to monitor renal function closely. Replace electrolytes as needed. Will continue to follow with you Procedures Date of Service Date of Service: 01/28/22
--- NOTE | 2022-01-28 09:51 | PM.EVENT ---
Event Note Date of Service: 01/28/22 Event Note: 61-year-old male with a past medical history of hypertension, hyperlipidemia, CAD, nonischemic cardiomyopathy status post AICD, CVA-resultant mild right-sided residual weakness, CKD, kidney embolism, AFib, renal infarct presented to the hospital with a chief complaint of right-sided weakness.? Headache/right-sided weakness with hx of stroke with right sided weakness and aphasia CT head and CT angio head and neck showed no acute findings.? Neuro checks Fall precautions PT/OT/speech and swallow eval Neurology consult HFrEF no acute exacerbation Chest x-ray showed mild congestion.? Patient currently saturating 98% on room air.? BNP chronically elevated Continue home Bumex. Paroxysmal atrial fibrillation with rapid ventricular response Heart rate currently improving.? Continue home including Eliquis an increase carvedilol to 12.5 mg twice daily as per cardiology CKD stage 3 Baseline History of seizures Seizure precautions Continue home Keppra History of depression Continue home mirtazapine, citalopram DVT prophylaxis:? Patient on Eliquis Full code Attending Dr. Lundy
--- NOTE | 2022-01-28 11:00 | PHA.MEDREC ---
Pharmacy Consult ? Medication Reconciliation Pharmacy has completed the medication reconciliation. Family member at bedside states pt uses [facility] in [place], confirmed medications. List from [facility] in pt's chart, referenced that for timing and doses.
--- NOTE | 2022-01-28 11:12 | ECG_ITS ---
Test Reason : STROKE Blood Pressure : / mmHG Vent. Rate : 095 BPM Atrial Rate : 000 BPM P-R Int : 000 ms QRS Dur : 130 ms QT Int : 394 ms P-R-T Axes : 000 -10 161 degrees QTc Int : 495 ms Atrial fibrillation Non-specific intra-ventricular conduction block Cannot rule out Septal infarct (cited on or before 02-JUL-2021) T wave abnormality, consider lateral ischemia Abnormal ECG When compared with ECG of 08-SEP-2021 21:05, Heart rate has decreased Referred By: Lara Christianson Electronically Signed By:GENNY FERRIS
--- NOTE | 2022-01-28 12:41 | PM.NEUROCN ---
History of Present Illness Data of Consult Service Date: 01/28/22 Primary Care Provider: Unknown Physician HPI Reason for consult: Stroke 61-year-old male with a past medical history of hypertension, hyperlipidemia, CAD, nonischemic cardiomyopathy status post AICD, CVA-resultant mild right-sided residual weakness, CKD, kidney embolism, AFib, renal infarct presented to the hospital with a chief complaint of right-sided weakness.? When I talked to him and his he stated that the reason for coming to hospital was headache. He suffered from right hemiparesis and what his reported as forgetfulness. Review of Systems Review of Systems: Could not be done with him but no recent cold or flu-like illness PMFSH Past Medical History Medical History Cardiac defibrillator in place CHF (congestive heart failure) CHF (congestive heart failure) Chronic systolic heart failure CKD (chronic kidney disease), stage II CVA (cerebral vascular accident) Embolism of kidney Gallstones Hypertension NICM (nonischemic cardiomyopathy) NSVT (nonsustained ventricular tachycardia) Persistent atrial fibrillation Renal infarct Family History Family History Other CAD (coronary artery disease) Surgical History Surgical History History of cardiac defibrillator placement Social History Social History Household Members: Spouse Housing: House Do you presently have visiting nurse or other home services: No Alcohol intake: never Patient Tobacco Use Status: Never used Tobacco Advance Directives: Yes Advance Directives on File: Yes Advance Directives Date on File: 10/18/20 service: Yes Current occupational status: employed Meds Allergies Allergy/AdvReac Type Severity Reaction Status Date / Time No Known Allergies Allergy Verified 12/25/21 14:47 [No Known Allergies*] Active Medications: Current Medications Acetaminophen (Acetaminophen 325 Mg Tablet) 650 mg PO Q6H PRN PRN Reason: Pain, Mild (Pain Scale 1-3) Melatonin (Melatonin 3 Mg Tablet) 6 mg PO BEDTIME PRN PRN Reason: Insomnia Pharmacy Consult (Consult Rx Perform Med Rec) 1 each MISCELLANE ONCE PRN PRN Reason: Consult order Senna (Sennosides 8.6 Mg Tablet) 17.2 mg PO BEDTIME PRN PRN Reason: Constipation Sodium Chloride (0.9 % Sodium Chloride Flush 3 Ml Syringe) 3 ml IVFLUSH QSHIFT [facility] Last Admin: 01/28/22 07:57 Dose: 3 ml Home Medications Medication Instructions Recorded Confirmed Last Taken Type apixaban 5 mg tablet (Eliquis) 5 mg PO BID 07/02/21 01/28/22 01/27/22 History atorvastatin 80 mg tablet 80 mg PO BEDTIME 07/02/21 01/28/22 01/27/22 History carvedilol 6.25 mg tablet 6.25 mg PO BID 07/02/21 01/28/22 01/27/22 History citalopram 10 mg tablet 10 mg PO DAILY 07/02/21 01/28/22 01/27/22 History mirtazapine 7.5 mg tablet 7.5 mg PO DAILY 07/02/21 01/28/22 01/27/22 History bumetanide 1 mg tablet 1 mg PO DAILY PRN Edema 10/22/21 01/28/22 Unknown History cholecalciferol (vitamin D3) 25 25 mcg PO DAILY 01/28/22 01/28/22 01/27/22 History mcg (1,000 unit) tablet famotidine 20 mg tablet 20 mg PO DAILY 01/28/22 01/28/22 01/27/22 History Physical Exam Vital Signs: Vital Signs: Last Vital Signs Temp 97.6 F 01/28/22 05:58 Pulse 87 01/28/22 07:53 Resp 16 01/28/22 07:53 BP 158/107 H 01/28/22 07:53 Pulse Ox 98 01/28/22 07:53 O2 Del Method 01/28/22 07:53 BMI result Body Mass Index 28.1 Neuro: Other: Alert and awake with diminished spontaneity of speech and fluency. He was able to repeat simple words but could not name simple objects. He was following commands. There was moderate right-sided facial weakness and moderate right hemiparesis Results Labs CBC & Chem 7: 01/27/22 23:41 01/27/22 23:41 Labs: Short CBC 01/27/22 Range/Units 23:41 WBC 5.1 (4.8-10.8) X10*3/uL Hgb 13.0 L (14.0-18.0) g/dl Hct 38.9 L (42.0-52.0) % Plt Count 229 (160-400) X10*3/uL BMP 01/27/22 23:41 Sodium 144 Potassium 4.1 Chloride 112 H Carbon Dioxide 19 L BUN 21 H Creatinine 1.45 H Calcium 8.7 Cardiac Enzymes 01/27/22 Range/Units 23:41 Total Creatine Kinase 57 (38-174) U/L Large chronic left middle cerebral artery infarct was noted with multi focal intracranial atherosclerotic disease and stenosis. Assessment and Plan (1) Cerebrovascular accident: Status: Acute 61 years old man with multiple vascular risk factors for stroke including atrial fibrillation and significant intracranial atherosclerotic disease had a CT large left middle cerebral artery area stroke resulting in right hemiparesis and mixed aphasia. It was difficult to say if he had another event. In any case overall management would not change. I would recommend continuing anticoagulation and if possible add haalf a baby aspirin daily. This is for intracranial atherosclerotic disease. This type of pain patient's are also at risk for seizure disorder and if any such symptomatology would appear a medicine can easily be prescribed Procedures Date of Service Date of Service: 01/28/22
--- NOTE | 2022-01-28 15:16 | PC.NURSE ---
Pt changed over into hospital bed.
--- NOTE | 2022-01-28 15:52 | MHC.STROKE ---
EMS PRE-NOTIFICATION ON 01/27/22 at 2146, STROKE PROTOCOL ACTIVATED, ASSESSED BY MD, LKW 1600, NIHSS = 8. ON ELIQUIS FOR AFIB. DOOR TO CT 11 MINUTES, NO BLEED, CTA H/N NO LVO. EXCLUDED FROM TPA-ALTEPLASE DUE TO CURRENT NOAC ELIQUIS, AND LKW 5.5 HRS. PMH. EXTENSIVE: CVA RIGHT HEMIPARESIS/APHASIA, CAD, HTN, HDL, AFIB, HF, CRF, ICD, MULTIPLE CLOTS PERIPHERALLY, OBESITY. CLARIFIED NURSING SWALLOW SCREEN AND CONFIRMED HE PASSED AT 2255 PRIOR TO PO IN THE ED. DR. DARNELL SAW THE PATIENT IN CONSULT, ?NEED FOR MRI HE HAS AN ICD. I WILL CONTINUE TO FOLLOW.
--- NOTE | 2022-01-28 18:15 | MHC.SP.ADU ---
Addendum entered and electronically signed by Penny Castro MA, CCC-CAP SIZER 01/31/22 09:40: D.S. Original Note: Referring provider: Manan Bateman MD Reason for Referral: speech and swallow eval Type of Treatment: 44086 Clinical Swallowing Evaluation Date of Plan of Treatment: 01/28/22 Onset of Symptoms/Illness: 01/28/22 Date Treatment Started: 01/28/22 Medical Diagnosis: Atrial fibrillation with rapid ventricular response Primary Speech Language Diagnosis: R47.81 Slurred speech Secondary Speech Language Diagnosis: History Pt is a 61 year old Lithuanian speaking male who presented to ED on 01/27/22 with c/o right sided weakness and headache. Per neurology notes, pt has a history of large left middle cerebral artery stroke resulting in right hemiparesis and mixed aphasia in March 2021. Per ED notes, pt has mild right-sided residual weakness from prior CVA. Per hospitalist notes, family reports no difficulty swallowing. CT head & CT angio head and neck: no acute findings Extensive chronic encephalomalacia within L MCA CXR: Mild congestion Mild bibasilar atelectasis Medical History: Cardiovascular Disease High Blood Pressure Stroke Other: Cardiac defibrillator in place CHF (congestive heart failure) Chronic systolic heart failure CKD (chronic kidney disease), stage II CVA (cerebral vascular accident) Embolism of kidney Gallstones Hypertension NICM (nonischemic cardiomyopathy) NSVT (nonsustained ventricular tachycardia) Persistent atrial fibrillation Renal infarct Seizure (07/05/21 RN Note in Expanse) Recent Hospitalizations: Yes: 01/15/22: Headache, R side tingling 08/2021: dizziness 06/2021: dyspnea Respiratory Needs: Room Air Social History: Unable to get obtain hx from pt including employment status, highest level of education, current living, past speech therapy, other therapy services Swallowing Evaluation: Pt's lunch tray arrived with regular solids and thin liquids upon CAP SIZER's visit. Pt expressed disinterest in food on tray (bowl of stew and side of corn). Pt was given tuna sandwich, applesauce, and heladio cracker brought by CAP SIZER. Pt tolerated bites of applesauce with timely AP transport and clear oral cavity. Pt tolerated 1/2 tuna sandwich and 1/2 heladio cracker with timely mastication and AP transport. Pt independently took bites of applesauce or sips of juice to clear oral residue. Pt tolerated sips of apple juice and water via cup sip with no overt clinical s/s of aspiration. No change in vocal quality observed. At times during PO trials, pt was observed to take additional bites prior to clearing oral cavity. Pt was cued to clear bolus from oral cavity prior to introducing next bite. Recommend REGULAR solids, THIN liquids, pills WHOLE in liquid or puree depending on pt preference. Pre-eval Risk for Aspiration: Medically Fragile Neurological Condition Weak Cough Pre-evaluation Dietary Consistencies: Regular Pre-eval Liquid Intake: Thin Pre-eval Medication Intake: Whole with Puree Reported Speech, Language, Cognition difficulties: Understanding Reading Speaking Assessment Speech Production: Aphasic: Fluent Aphasic: Nonfluent Dysarthric Apraxic Garbled Slurred Clinical Impression: Impaired Pt reports difficulty speaking and understanding language. Pt was administered parts of the QAB (Quick Aphasia Battery) in Lithuanian. Orientation: Pt's orientation unclear. When asked, me puede decir donde estamos ahora? (can you tell me where we are now?), pt responded w/ unintelligible jargon. When asked, en que mes estamos? (what month are we in?) pt verbally responded verbally with shelly...dos...rick (one..two..three) while seemingly tracing letters or numbers in the air. CAP SIZER was unable to make out what was traced into the air. When asked, cuantos anos tiene usted? (how old are you), pt traced numbers 6-4 into air. When asked if pt traced 6 and 4, pt responded si (yes). Per records, pt is currently 61 years old. Following commands: Pt was unable to follow simple 1-step commands: cierre komal ojos (close your eyes) and levante la mano (raise your hand) without being provided with visual cue. Connected speech: Pt's connected speech was mainly nonsensical, full of nonsense words, with frequent pauses. When shown two pictures of children on a swingset and children running and prompted que esta pasando aqui? (what is happening here?), pt responded Tu sabes... esto... y esto... y bum bum... (you know... this... and this... and boom boom) Word identification: Pt was able to ID 6 out of 7 words including travon (lion), violin, jirafa (giraffe), mono (monkey), cabra (goat), cobra. When given the word tambor (drum), pt selected the trombone (trombon). Picture naming: When provided with phonemic cues, pt was able to name 3 out of 6 pictures (priyanka/dog, camello/camel, unicornio, unicorn). Sentence comprehension: Pt was able to answer 5 out of 7 Y/N questions correctly. Examples of correctly answered questions: se corta cesped con un hacha? (do you cut grass with an axe?), usted abre la samira con home llave? (do you open a door with a jhaveri?). Examples of questions answered incorrectly: usted es hombre? (are you a man), los medicos son tratados por los pacientes? (are doctors treated by the patients?) Repetition: Pt demonstrated increased difficulty with increased length of words or sentences. For example, pt was able to produce the parts of the sentence el ruel sale por el hebert when broken down into 4 sections. When asked to repeat the sentence all at once, the pt's speech become jumbled and unintelligible. This Reading aloud: Pt was unable to read aloud single words nor short sentences. AMRs: /p/ WFL. /t/ and /k/ slower but likely WFL. SMRs: /ptk/ abnormal. Sounds no longer intelligible and slurred together. AMR and SMR performance reflective of apraxia of speech. Informal Voice Assessment: Voice Loudness: Normal Voice Nasal Resonance: Normal Voice Oral Resonance: Normal Voice Phonatory-based Quality: Normal Voice Pitch: Normal Recommendation for Speech Therapy: Further Testing Needed Outpatient Speech Therapy Inpatient Speech Therapy Patient Education: Completed: Yes Patient/Caregiver Education: Described Results of Evaluation Manufacturing Inspector Clinican/Clinical Fellow: Yes: Lis Singh M.A., CF-CAP SIZER Supervisory Statement: Speech Language Pathologist:
--- NOTE | 2022-01-28 19:47 | PC.NURSE ---
Assumed care of pt. at 1900. Pt. resting quietly in bed. Pt. reports no pain and has no needs as this time. Will continue to monitor.
[2022-01-28] MEDS: Sacubitril/Valsartan 49/51 1 TAB TABLET PO (21:52)
[2022-01-28] MEDS: levETIRAcetam 500 MG TABLET PO (21:53)
[2022-01-28] MEDS: Atorvastatin Calcium 80 MG TABLET PO (21:53)
[2022-01-28] MEDS: carvediloL 6.25 MG TABLET PO (21:53)
[2022-01-28] MEDS: Apixaban 5 MG TABLET PO (21:53)
[2022-01-29] VITALS (8 sets, daily range): BP systolic 137–154; BP diastolic 92–103; PULSE 74–90; RESP 16–24; TEMP 36–36.8; O2SAT 96–99
--- NOTE | 2022-01-29 00:04 | PC.NURSE ---
Patient transported from ed to overflow at 2300, ICU called; patient with 18 beat vtach. Assessed patient, Patient is aymptomatic. Dr. Bro notified. STAT ekg, labs ordered. Report given to RN taking over patient's care.
[2022-01-29 00:32] LABS: Anion Gap 16 (12-20); Blood Urea Nitrogen 20 mg/dL (9-16); Calcium 8.8 mg/dL (8.4-10.2); Carbon Dioxide 24 mmol/L (22-29); Chloride 110 mmol/L (96-108); Creatinine Clr Calc Pharmacy 49.2; Estimated Glomerular Filt Rate 45; Glucose Random 92 mg/dL (60-115); Magnesium 1.6 mg/dL (1.6-2.6); Potassium 3.7 mmol/L (3.3-5.1); Sodium 146 mmol/L (135-145)
--- NOTE | 2022-01-29 01:53 | PC.NURSE ---
Assumed care of patient at this time ,patient is awake .
[2022-01-29] MEDS: 0.9 % Sodium Chloride Flush 3 ML SYRINGE IVFLUSH ×4 (02:43→22:11)
--- NOTE | 2022-01-29 06:51 | PC.NURSE ---
Pt aphasic and alert. Not oriented. Right sided weakness, and facial droop noted. Hospitalist notified. Will continue to monitor.
[2022-01-29 07:41] LABS: MANUAL DIFF FLAG NO
[2022-01-29 07:47] LABS: Basophils Percent Auto 0.7 % (0-2); Eosinophils Absolute Auto 0.1 X10*3/uL (0.0-0.4); Eosinophils Percent Auto 2.1 % (0-4); Hematocrit 39.9 % (42.0-52.0); Hemoglobin 13.4 g/dl (14.0-18.0); Imm Gran Abs Auto 0.01 X10*3/uL (0.00-0.03); Imm Gran Pct Auto 0.2 % (0.0-0.4); Lymphocytes Absolute Auto 1.9 X10*3/uL (1.2-4.9); Lymphocytes Percent Auto 33.3 % (20-40); Mean Corpuscular HGB Conc 33.6 g/dl (31.0-36.0); Mean Corpuscular Hemoglobin 30.7 pg (27.0-33.0); Mean Corpuscular Volume 91.3 fL (80.0-98.0); Mean Platelet Volume 11.5 fL (9.4-12.4); Monocytes Absolute Auto 0.7 X10*3/uL (0.1-1.2); Monocytes Percent Auto 12.8 % (2-11); Neutrophils Absolute Auto 2.9 x10*3/uL (2.0-8.3); Neutrophils Percent Auto 50.9 % (45-73); Platelet Count 246 X10*3/uL (160-400); Red Blood Count 4.37 X10*6/uL (4.60-5.80); Red Cell Distribution Width 13.5 % (11.0-16.0); White Blood Count 5.6 X10*3/uL (4.8-10.8)
[2022-01-29 08:14] LABS: Cholesterol 130 mg/dL; HDL Cholesterol 36 mg/dL; LDL Cholesterol Calculated 80 mg/dl; Triglycerides 71 mg/dL
[2022-01-29 08:20] LABS: Anion Gap 16 (12-20); Blood Urea Nitrogen 21 mg/dL (9-16); Calcium 8.9 mg/dL (8.4-10.2); Carbon Dioxide 23 mmol/L (22-29); Chloride 110 mmol/L (96-108); Creatinine Clr Calc Pharmacy 59.4; Estimated Glomerular Filt Rate 56; Glucose Random 99 mg/dL (60-115); Potassium 3.9 mmol/L (3.3-5.1); Sodium 145 mmol/L (135-145)
[2022-01-29] MEDS: Escitalopram Oxalate 5 MG TABLET PO (08:24)
[2022-01-29] MEDS: Sacubitril/Valsartan 49/51 1 TAB TABLET PO ×2 (08:25→21:23)
[2022-01-29] MEDS: Mirtazapine 7.5 MG TABLET PO (08:25)
[2022-01-29] MEDS: Cholecalciferol (Vitamin D3) 25 MCG TABLET PO (08:25)
[2022-01-29] MEDS: Apixaban 5 MG TABLET PO ×2 (08:25→21:23)
[2022-01-29] MEDS: Famotidine 20 MG TABLET PO (08:26)
[2022-01-29] MEDS: levETIRAcetam 500 MG TABLET PO ×2 (08:26→22:11)
[2022-01-29] MEDS: carvediloL 6.25 MG TABLET PO (08:26)
--- NOTE | 2022-01-29 09:18 | P.PNCA_ITS ---
Subjective Subjective Date of Service: 01/29/22 Principal diagnosis: CHF, atrial fibrillation, hypertension Interval history: Patient blood pressure remains labile. Heart rate still somewhat elevated at some point in time. He did not receive higher dose of carvedilol or spironolactone yesterday. Was restarted on Entresto. His breathing he said his much improved. He is on p.o. Bumex today Review of Systems Review of Systems Yes all other systems are reviewed and are negative Physical Exam Vital Signs: Last Vital Signs Temp 97.7 F 01/29/22 08:07 Pulse 90 01/29/22 08:07 Resp 18 01/29/22 08:07 BP 154/101 H 01/29/22 08:07 Pulse Ox 98 01/29/22 08:07 O2 Del Method 01/29/22 08:07 BMI result Body Mass Index 28.1 Const General: cooperative, comfortable, no acute distress, alert and awake Nutritional Appearance: average body habitus Orientation/consciousness: patient oriented x3 Neck Neck: Yes trachea midline and Yes no JVD Resp Effort & Inspection: normal respiratory effort Auscultation: clear to auscultation bilaterally Cardio Jugular venous distension: no JVD Rate: tachycardic Rhythm: abnormal rhythm irregularly irregular Heart sounds: S1 normal heart sound present and S2 normal heart sound present GI Auscultation: normal bowel sounds Skin General skin exam: no rashes or lesions noted Neuro General: patient oriented x3 and no focal motor deficits Extrem General: Yes no clubbing, cyanosis or edema Objective Labs and Meds Result diagrams: 01/29/22 06:59 01/29/22 06:59 Lab results: Laboratory Results - last 24 hr 01/27/22 01/28/22 01/29/22 22:01 23:42 06:59 WBC 5.6 RBC 4.37 L Hgb 13.4 L Hct 39.9 L MCV 91.3 MCH 30.7 MCHC 33.6 RDW 13.5 Plt Count 246 MPV 11.5 Immature Gran % (Auto) 0.2 Neut % (Auto) 50.9 Lymph % (Auto) 33.3 [place] % (Auto) 12.8 H Eos % (Auto) 2.1 Baso % (Auto) 0.7 Lymph # (Auto) 1.9 [place] # (Auto) 0.7 Eos # (Auto) 0.1 Baso # (Auto) 0.0 Abs Immat Gran (auto) 0.01 Absolute Neuts (auto) 2.9 Absolute Nucleated RBC 0.000 Nucleated RBC % (auto) 0.0 Whole Blood PT 16.0 H Whole Blood INR 1.3 H Sodium 146 H Potassium 3.7 Chloride 110 H Carbon Dioxide 24 Anion Gap 16 BUN 20 H Creatinine 1.57 H Estim Creat Clear Calc 49.2 Estimated GFR 45 Random Glucose 92 Calcium 8.8 Magnesium 1.6 Triglycerides Cholesterol LDL Cholesterol, Calc HDL Cholesterol 01/29/22 01/29/22 06:59 06:59 WBC RBC Hgb Hct MCV MCH MCHC RDW Plt Count MPV Immature Gran % (Auto) Neut % (Auto) Lymph % (Auto) [place] % (Auto) Eos % (Auto) Baso % (Auto) Lymph # (Auto) [place] # (Auto) Eos # (Auto) Baso # (Auto) Abs Immat Gran (auto) Absolute Neuts (auto) Absolute Nucleated RBC Nucleated RBC % (auto) Whole Blood PT Whole Blood INR Sodium 145 Potassium 3.9 Chloride 110 H Carbon Dioxide 23 Anion Gap 16 BUN 21 H Creatinine 1.30 Estim Creat Clear Calc 59.4 Estimated GFR 56 Random Glucose 99 Calcium 8.9 Magnesium Triglycerides 71 Cholesterol 130 LDL Cholesterol, Calc 80 HDL Cholesterol 36 Progress Note: A&P Assessment and plan (1) Acute decompensated heart failure: Status: Acute Assessment and Plan: Patient came in with shortness of breath and mild decompensated congestive of her which has improved. Switch to p.o. Bumex which is okay. Today appears to be euvolemic and well compensated with no breathing issues. Continue was to have labile blood pressure and AFib with slightly rapid ventricular response. Will continue to up titrate his neurohormonal modulation. (2) Uncontrolled hypertension: Status: Acute Assessment and Plan: Uncontrolled hypertension. Increase Coreg to 12.5 mg b.i.d.. Add Aldactone 12.5 mg daily to his regimen. Follow-up renal function tomorrow. Continue further uptitrate medications. Hopefully this will take an additional day to better optimize his medications prior to discharge. (3) Atrial fibrillation with rapid ventricular response: Status: Acute Assessment and Plan: Atrial fibrillation rapid ventricular response with prior CVA. Rate is borderline controlled. Increase carvedilol to 12.5 mg b.i.d. as above. Continue monitor for 1 more day. Continue full oral anticoagulation with Eliquis. Will continue to follow with you Time Spent With Patient Time: Total time spent is greater than 50% in coordination of care (as documented) at patient's floor/unit and/or counseling patient: Progress Note: Quality Stroke Does the patient have a stroke diagnosis?: No Procedures Date of Service Date of Service: 01/29/22
[2022-01-29] MEDS: Spironolactone 25 MG TABLET 12.5 MG PO (09:39)
--- NOTE | 2022-01-29 12:28 | MHC.CM.PN ---
met terrence pt in ed overflow [facility] [place] his pcp is lizzie lane and he goes to [facility] there he has a pcp 22 hrs a week he will need [facility] van ride home
[2022-01-29 12:29] LABS: Glucose, Whole Blood 102 mg/dL (60-115)
--- NOTE | 2022-01-29 12:59 | P.PNIM_ITS ---
Subjective Subjective Date of Service: 01/29/22 Review of Systems Follow up Headache, weakness, afib rvr Doing ok today, no pain HR up and down Physical Exam Vital Signs: Vital Signs: Last Vital Signs Temp 97.2 F 01/29/22 11:43 Pulse 89 01/29/22 11:43 Resp 18 01/29/22 11:43 BP 142/102 H 01/29/22 11:43 Pulse Ox 99 01/29/22 11:43 O2 Del Method 01/29/22 11:43 BMI result Body Mass Index 28.1 Appearing in no acute distress lung sounds are clear to auscultation heart regular rate rhythm, clear S1, S2 positive bowel sounds, abdomen is soft, nontender neuro patient is alert x3, no focal deficits Aphasia, chronic left-sided weakness Objective Data Active Medications Acetaminophen (Acetaminophen 325 Mg Tablet) 650 mg PO Q6H PRN PRN Reason: Pain, Mild (Pain Scale 1-3) Apixaban (Apixaban 5 Mg Tablet) 5 mg PO BID [facility] Last Admin: 01/29/22 08:25 Dose: 5 mg Documented By: JACK Atorvastatin Calcium (Atorvastatin Calcium 80 Mg Tablet) 80 mg PO BEDTIME [facility] Last Admin: 01/28/22 21:53 Dose: 80 mg Documented By: TESS Bumetanide (Bumetanide 1 Mg Tablet) 1 mg PO DAILY PRN; Protocol PRN Reason: Edema Carvedilol (Carvedilol 12.5 Mg Tablet) 12.5 mg PO BID [facility]; Protocol Escitalopram Oxalate (Escitalopram Oxalate 5 Mg Tablet) 5 mg PO DAILY [facility] Last Admin: 01/29/22 08:24 Dose: 5 mg Documented By: JACK Famotidine (Famotidine 20 Mg Tablet) 20 mg PO DAILY [facility] Last Admin: 01/29/22 08:26 Dose: 20 mg Documented By: JACK Levetiracetam (Levetiracetam 500 Mg Tablet) 500 mg PO BID [facility] Last Admin: 01/29/22 08:26 Dose: 500 mg Documented By: JACK Melatonin (Melatonin 3 Mg Tablet) 6 mg PO BEDTIME PRN PRN Reason: Insomnia Mirtazapine (Mirtazapine 7.5 Mg Tablet) 7.5 mg PO DAILY [facility] Last Admin: 01/29/22 08:25 Dose: 7.5 mg Documented By: JACK Pharmacy Consult (Consult Rx Perform Med Rec) 1 each MISCELLANE ONCE PRN PRN Reason: Consult order Sacubitril/Valsartan (Sacubitril/Valsartan 49/51 1 Tab Tablet) 1 tab PO BID SC H; Protocol Last Admin: 01/29/22 08:25 Dose: 1 tab Documented By: JACK Senna (Sennosides 8.6 Mg Tablet) 17.2 mg PO BEDTIME PRN PRN Reason: Constipation Sodium Chloride (0.9 % Sodium Chloride Flush 3 Ml Syringe) 3 ml IVFLUSH QSHIFT [facility] Last Admin: 01/29/22 08:24 Dose: 3 ml Documented By: JACK Spironolactone (Spironolactone 25 Mg Tablet) 12.5 mg PO DAILY [facility]; Protocol Last Admin: 01/29/22 09:39 Dose: 12.5 mg Documented By: JACK Vitamin D (Cholecalciferol (Vitamin D3) 25 Mcg Tablet) 25 mcg PO DAILY [facility] Last Admin: 01/29/22 08:25 Dose: 25 mcg Documented By: JACK Labs CBC & Chem 7: 01/29/22 06:59 01/29/22 06:59 Labs: Laboratory Results - last 24 hr 01/28/22 01/29/22 01/29/22 23:42 06:59 06:59 MCV 91.3 MCH 30.7 MCHC 33.6 RDW 13.5 Plt Count 246 MPV 11.5 Immature Gran % (Auto) 0.2 Neut % (Auto) 50.9 Lymph % (Auto) 33.3 [place] % (Auto) 12.8 H Eos % (Auto) 2.1 Baso % (Auto) 0.7 Lymph # (Auto) 1.9 [place] # (Auto) 0.7 Eos # (Auto) 0.1 Baso # (Auto) 0.0 Abs Immat Gran (auto) 0.01 Absolute Neuts (auto) 2.9 Absolute Nucleated RBC 0.000 Nucleated RBC % (auto) 0.0 Anion Gap 16 16 Estim Creat Clear Calc 49.2 59.4 Estimated GFR 45 56 POC Glucose Random Glucose 92 99 Calcium 8.8 8.9 Magnesium 1.6 Triglycerides Cholesterol LDL Cholesterol, Calc HDL Cholesterol 10/04/22 10/04/22 06:59 12:16 MCV MCH MCHC RDW Plt Count MPV Immature Gran % (Auto) Neut % (Auto) Lymph % (Auto) [place] % (Auto) Eos % (Auto) Baso % (Auto) Lymph # (Auto) [place] # (Auto) Eos # (Auto) Baso # (Auto) Abs Immat Gran (auto) Absolute Neuts (auto) Absolute Nucleated RBC Nucleated RBC % (auto) Anion Gap Estim Creat Clear Calc Estimated GFR POC Glucose 102 Random Glucose Calcium Magnesium Triglycerides 71 Cholesterol 130 LDL Cholesterol, Calc 80 HDL Cholesterol 36 Assessment and Plan (1) Acute decompensated heart failure: Status: Acute Plan 61-year-old male with a past medical history of hypertension, hyperlipidemia, CAD, nonischemic cardiomyopathy status post AICD, CVA-resultant mild right-sided residual weakness, CKD, kidney embolism, AFib, renal infarct presented to the hospital with a chief complaint of right-sided weakness.? Headache/right-sided weakness with hx of stroke with right sided weakness and aphasia CT head and CT angio head and neck showed no acute findings Neuro checks Fall precautions PT/OT/speech and swallow eval Neurology consult HFrEF no acute exacerbation Chest x-ray showed mild congestion.? Patient currently saturating 98% on room air.? BNP chronically elevated Continue home Bumex. aldactone added Paroxysmal atrial fibrillation with rapid ventricular response Heart rate currently improving.? Continue Eliquis and increase carvedilol to 12.5 mg twice daily as per cardiology CKD stage 3 Baseline History of seizures Seizure precautions Continue home Keppra History of depression Continue home mirtazapine, citalopram DVT prophylaxis:? Patient on Eliquis Full code Attending Dr. Lundy Continue hospitalization for treatment of atrial fibrillation with rapid ventricular response requiring telemetry monitoring and medication adjustments Quality Stroke Does the patient have a stroke diagnosis?: No VTE Prior VTE?: No VTE Risk Level:: Medical - moderate - high VTE Device Contraindication: Treatment Not Indicated VTE Drug Contraindication: N/A - Med Ordered
--- NOTE | 2022-01-29 13:00 | MHC.SLORD ---
Addendum entered and electronically signed by CLAUDIO Lopez 01/29/22 17:49: S.W. Original Note: Speech Language Pathology Order Status: QUALITY COORDINATOR checked in w/ RN upon arrival. RN reports pt has been chewing on pills. When provided with cues from RN not to chew on meds, pt continues to chew on pills. RN reports pt has been feeding himself. No reported coughing or concerns with solids or thin liquids. RN reports pt was able to follow commands when instructed to use urinal. QUALITY COORDINATOR checked in w/ pt and his girlfriend at bedside. Pt's girlfriend reports pt takes meds crushed in pudding at home. QUALITY COORDINATOR informed pt's girlfriend of results of speech and language screening yesterday and provided a copy of report. QUALITY COORDINATOR recommended to pt and family that pt continue speech therapy at next level of care. QUALITY COORDINATOR notified RN and recommended pills be crushed in puree.
[2022-01-29 15:35] LABS: Glucose, Whole Blood 137 mg/dL (60-115)
[2022-01-29] MEDS: carvediloL 12.5 MG TABLET PO (21:23)
[2022-01-29] MEDS: Atorvastatin Calcium 80 MG TABLET PO (21:23)
--- NOTE | 2022-01-29 21:32 | PC.NURSE ---
Patient alert, oriented to name only. Was sleeping, woke up, denies pain. Cooperative with care. Took HS meds without issue. Mildly weak. Patient made aware room ready on . Report given to Teresa CARLOS - Patient brought up via bed with transport. Patient was Aflutter on monitor with BBB.
--- NOTE | 2022-01-30 01:13 | PC.NURSE ---
Pt had 8 beat vtach notified ordered magnesium and BMP.Pt asymptomatic sleeping in bed.
[2022-01-30 02:38] LABS: Anion Gap 13 (12-20); Blood Urea Nitrogen 21 mg/dL (9-16); Calcium 8.5 mg/dL (8.4-10.2); Carbon Dioxide 26 mmol/L (22-29); Chloride 111 mmol/L (96-108); Creatinine Clr Calc Pharmacy 50.5; Estimated Glomerular Filt Rate 46; Glucose Random 109 mg/dL (60-115); Magnesium 1.7 mg/dL (1.6-2.6); Potassium 3.7 mmol/L (3.3-5.1); Sodium 146 mmol/L (135-145)
[2022-01-30 03:27] VITALS: BP 125/77; PULSE 66; RESP 18; TEMP 36.7; O2SAT 98
[2022-01-30 07:27] VITALS: BP 139/90; PULSE 67; RESP 18; TEMP 36.4; O2SAT 99
[2022-01-30] MEDS: Sacubitril/Valsartan 49/51 1 TAB TABLET PO (07:52)
[2022-01-30] MEDS: Mirtazapine 7.5 MG TABLET PO (07:52)
[2022-01-30] MEDS: Apixaban 5 MG TABLET PO (07:53)
[2022-01-30] MEDS: Escitalopram Oxalate 5 MG TABLET PO (07:53)
[2022-01-30] MEDS: Spironolactone 25 MG TABLET 12.5 MG PO (07:53)
[2022-01-30] MEDS: Famotidine 20 MG TABLET PO (07:53)
[2022-01-30] MEDS: carvediloL 12.5 MG TABLET PO (07:53)
[2022-01-30] MEDS: levETIRAcetam 500 MG TABLET PO (07:53)
[2022-01-30] MEDS: Cholecalciferol (Vitamin D3) 25 MCG TABLET PO (07:53)
[2022-01-30] MEDS: 0.9 % Sodium Chloride Flush 3 ML SYRINGE IVFLUSH (08:02)
[2022-01-30 11:24] VITALS: BP 121/75; PULSE 67; RESP 18; TEMP 36.6; O2SAT 93
--- NOTE | 2022-01-30 12:22 | P.DS_ITS ---
DS: Providers Provider Date of Service: 01/30/22 Date of admission: 01/28/22 06:22 Primary care physician: Unknown Physician Consults: 01/28/22 06:22 Consult to Cardiology Routine Consulting Provider: Ovidio Bobo Reason for consultation: rapid afib 01/28/22 06:25 Consult to Neurology Routine Consulting Provider: Court Fernando Reason for consultation: Right side weakness; headache DS: Diagnosis Discharge Diagnosis (1) Acute decompensated heart failure: Status: Acute DS: Summary Hospital Course Hospital Course: From the admission H&P: 61-year-old male with a past medical history of hypertension, hyperlipidemia, CAD, nonischemic cardiomyopathy status post AICD, CVA-resultant mild right-sided residual weakness, CKD, kidney embolism, AFib, renal infarct presented to the hospital with a chief complaint of right-sided weakness.? Patient is a poor historian.? Spoke to the patient, patient's significant other over the phone.? Also obtained history from the ER staff and records.? Reportedly patient has been complaining of right-sided weakness and headaches over the past 1 day.? Not feeling well.? Subsequently patient was sent to the hospital for further evaluation.? Per patient's family patient did not have any difficulty swallowing, has been complaint with his home medications.? Denies having any falls.? Patient denies any chest pain, palpitations, lightheadedness, dizziness, falls or trauma.? Denies any abdominal discomfort, nausea vomiting or diarrhea.? Denies any urinary symptoms.? Review of all other systems is negative except mentioned above ER course: Per ER team, patient reportedly has mild right-sided residual weakness from prior CVA, today has slightly increased weakness; CT head and CT angio head and neck showed no acute findings; patient was also noted to be in AFib with rapid ventricular response; Chest x-ray showed mild congestion; saturating 98% on room air; admitted to the hospital for further management Hospital Course: Patient presented to the hospital with complaints of right-sided weakness, headache as well as shortness of breath, rapid AFib. CTA and CT of the head were negative for any acute infarcts. He was evaluated by Neurology. They could not definitively rule out another acute infarct, however did not recommend any further testing. They recommended continuation of his anticoagulation as well as an addition of have a baby aspirin daily. He will be prescribed aspirin every other day. He is to continue Eliquis. In regards to his shortness of breath, his x-ray was consistent with venous congestion. He required IV diuretics. He was evaluated by Cardiology who felt that he was in mild CHF. Once improved, he was transition to his oral Bumex which he will be discharged home on. Aldactone was initiated and has been up titrated to 25 mg daily. In regards to his AFib, his Coreg has been increased to 12.5 mg twice daily. He should continue his Eliquis unchanged. Patient did have several nonsustained runs of V-tach, his electrolytes are within normal limits. He has an ICD in place. Time Spent with Patient Time attestation: Total time spent providing and/or coordinating discharge services: Discharge coordination time: Greater than 30 minutes Quality: Safe Use of Opioids Does Pt have an Active Cancer Diagnosis on the Problem List?: No Quality: Stroke Does the patient have a stroke diagnosis?: No Physical Exam Vital Signs: Vital Signs: Last Vital Signs Temp 97.9 F 01/30/22 11:24 Pulse 67 01/30/22 11:24 Resp 18 01/30/22 11:24 BP 121/75 01/30/22 11:24 Pulse Ox 93 01/30/22 11:24 O2 Del Method 01/30/22 11:24 BMI result Body Mass Index 28.1 Const: Other: General - no acute distress, appears comfortable Cardiovascular - regular rate and rhythm, S1-S2 Lungs - normal respiratory effort, clear to auscultation bilaterally, no whe ezing Abdomen - soft, nontender, no rebound or guarding Extremities - no edema bilaterally Neuro - awake and alert, r hemiplegia DS: Data Data Completed and Pending Labs on day of discharge: Laboratory Results - last 24 hr 01/29/22 01/29/22 01/30/22 12:16 15:30 02:15 Sodium 146 H Potassium 3.7 Chloride 111 H Carbon Dioxide 26 Anion Gap 13 BUN 21 H Creatinine 1.53 H Estim Creat Clear Calc 50.5 Estimated GFR 46 POC Glucose 102 137 H Random Glucose 109 Calcium 8.5 Magnesium 1.7 Discharge Plan Discharge Anticipated Discharge Date/Time: 01/30/22 12:17 Patient Disposition: Home Health Service Discharge Diagnosis: PAF, CHF, Possible CVA Referrals: Physician,Unknown J [Primary Care Provider] - 1 Week Discharge Medications: New carvedilol 12.5 mg Tablet 12.5 mg PO BID Qty: 60 0RF Protocol: Hold for SBP/HR < HOLD for SBP < : 90 HOLD for HR < : 60 spironolactone 25 mg tablet 25 mg PO DAILY Qty: 30 0RF aspirin 81 mg capsule 81 mg PO Q48H Qty: 30 0RF Continued atorvastatin 80 mg tablet 80 mg PO BEDTIME citalopram 10 mg tablet 10 mg PO DAILY mirtazapine 7.5 mg tablet 7.5 mg PO DAILY Eliquis 5 mg tablet 5 mg PO BID Entresto 49-51 mg Tablet 1 tab PO BID Qty: 30 0RF Protocol: Hold for SBP< HOLD for SBP < : 90 levetiracetam 500 mg Tablet 500 mg PO BID 30 Days Qty: 60 0RF acetaminophen 500 mg capsule 500 mg PO Q6H PRN (Reason: fever or pain) Qty: 20 0RF famotidine 20 mg Tablet 20 mg PO DAILY cholecalciferol (vitamin D3) 25 mcg (1,000 unit) Tablet 25 mcg PO DAILY Changed bumetanide 1 mg tablet 1 mg PO DAILY Qty: 30 0RF Discontinued carvedilol 6.25 mg tablet 6.25 mg PO BID Discharge Orders: Discharge Order (Routine); Ordered 01/30/22 Ordered By: Kaiden Lundy Diet: Advance to usual diet Activity on Discharge: As tolerated Stand Alone Forms: Patient Portal Discharge page Care Plan Goals: To stay healthy and out of the hospital. Health Concerns: A. Fib, Stroke, CHF Plan of Treatment: Take Eliquis as you have been doing so. Increase your coreg to 12.5mg twice karina ly. Take baby aspirin every other day. Follow up with your doctors Assessment: See discharge summary
--- NOTE | 2022-01-30 12:41 | PM.PNCARD ---
Subjective Subjective Date of Service: 01/30/22 Principal diagnosis: CHF, atrial fibrillation, hypertension Interval history: Donny is feeling a lot better today. Blood pressure is much better control. Heart rate is much better control. Noted to have 1 run of nonsustained VT. Review of Systems Review of Systems Yes all other systems are reviewed and are negative Physical Exam Vital Signs: Last Vital Signs Temp 97.9 F 01/30/22 11:24 Pulse 67 01/30/22 11:24 Resp 18 01/30/22 11:24 BP 121/75 01/30/22 11:24 Pulse Ox 93 01/30/22 11:24 O2 Del Method 01/30/22 11:24 BMI result Body Mass Index 28.1 Const General: cooperative, comfortable, no acute distress, alert and awake Nutritional Appearance: average body habitus Orientation/consciousness: patient oriented x3 Neck Neck: Yes trachea midline and Yes no JVD Resp Effort & Inspection: normal respiratory effort Auscultation: clear to auscultation bilaterally Cardio Jugular venous distension: no JVD Rate: tachycardic Rhythm: abnormal rhythm irregularly irregular Heart sounds: S1 normal heart sound present and S2 normal heart sound present GI Auscultation: normal bowel sounds Skin General skin exam: no rashes or lesions noted Neuro General: patient oriented x3 and no focal motor deficits Extrem General: Yes no clubbing, cyanosis or edema Objective Labs and Meds Result diagrams: 01/29/22 06:59 01/30/22 02:15 Lab results: Laboratory Results - last 24 hr 01/29/22 01/30/22 15:30 02:15 Sodium 146 H Potassium 3.7 Chloride 111 H Carbon Dioxide 26 Anion Gap 13 BUN 21 H Creatinine 1.53 H Estim Creat Clear Calc 50.5 Estimated GFR 46 POC Glucose 137 H Random Glucose 109 Calcium 8.5 Magnesium 1.7 Progress Note: A&P Assessment and plan (1) Acute decompensated heart failure: Status: Acute Assessment and Plan: Acute heart failure related to hypertension urgency and atrial fibrillation rapid ventricular response. Blood pressure is not better control. Clinically appears to be euvolemic. Continue current bumetanide dose. Continue to up titrate medications will continue to pursue this as outpatient. Will follow-up as outpatient in 2 weeks. Continue neurohormonal modulation with Entresto, carvedilol and Aldactone therapy. Increase Aldactone to 25 mg daily. (2) Uncontrolled hypertension: Status: Acute Assessment and Plan: Blood pressure much better controlled. Continue current therapy. Increase Aldactone to 25 mg daily. Follow-up in the clinic in 2 weeks time. Advised to monitor blood pressure at home. is very involved in his care. (3) Atrial fibrillation with rapid ventricular response: Status: Acute Assessment and Plan: Atrial fibrillation rapid ventricular was not better control with increase carvedilol therapy. Continue the same. No need for addition of digoxin at this point time. Follow up with Holter monitor. Follow up in the clinic in 2 weeks time. Patient can be discharged home. Time Spent With Patient Time: Total time spent is greater than 50% in coordination of care (as documented) at patient's floor/unit and/or counseling patient: Progress Note: Quality Stroke Does the patient have a stroke diagnosis?: No Procedures Date of Service Date of Service: 01/30/22
--- NOTE | 2022-01-30 13:14 | MHC.CM.PN ---
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
--- NOTE | 2022-01-30 13:48 | MHC.SLORD ---
Addendum entered and electronically signed by Penny Castro MA, CCC-[employer] 01/31/22 09:39: D.S. Original Note: Speech Language Pathology Order Status: Pt discharged early this afternoon on 01/30, therefore pt unable to be seen for tx.
== END 2022-01-30 13:30 | disposition home health service (06) | DRG 291 ==
LOC: HO.ED 01-28 → HO.EDOVER 01-28 06:50 → HO.S3 01-29 19:57
PROVIDERS: Internal Medicine; Nurse Practitioner Acute Care; Admitting Provider Hospitalist; Emergency Provider Emergency Medicine; PCP Internal Medicine; Visit Provider Family Medicine
DX: I13.0 Hypertensive heart and chronic kidney disease with heart failure and stage 1 through stage 4 chronic kidney disease, or unspecified chronic kidney disease (principal); I50.23 Acute on chronic systolic (congestive) heart failure; I63.9 Cerebral infarction, unspecified; I48.19 Other persistent atrial fibrillation; I69.351 Hemiplegia and hemiparesis following cerebral infarction affecting right dominant side; I42.8 Other cardiomyopathies; I25.10 Atherosclerotic heart disease of native coronary artery without angina pectoris; I48.0 Paroxysmal atrial fibrillation; F32.A Depression, unspecified; G40.909 Epilepsy, unspecified, not intractable, without status epilepticus; N18.30 Chronic kidney disease, stage 3 unspecified; Z20.822 Contact with and (suspected) exposure to COVID-19; Z95.810 Presence of automatic (implantable) cardiac defibrillator; Z79.01 Long term (current) use of anticoagulants; Z79.899 Other long term (current) drug therapy
CPT/HCPCS: 36415; 70450; 70496; 70498; 71045; 80048; 80061; 82550; 82947; 83735; 83880; 84484; 85025; 85610; 85730; 87635; 92523; 93005; 96374; 97162; 97166; 99284; 99285; J1940; Q9967

== ENCOUNTER 2022-02-08 15:47 | Emergency (ER) | payer OTHER, SELFPAY ==
--- NOTE | ~2022-02-08 | CT_ITS ---
EXAMINATION: CT HEAD WITHOUT CONTRAST (STROKE PROTOCOL) CLINICAL INFORMATION: Stroke protocol. Slurred speech. COMPARISON: Previous head CT most recent 01/27/2022 TECHNIQUE: Contiguous axial imaging was performed from the skull base to vertex without intravenous administration of contrast. This CT examination was performed using dose optimization techniques as appropriate, variously including the following: *Automated exposure control *Adjustment of mA and/or kV according to patient size (this includes techniques or standardized protocols for targeted exams where dose is matched to indication/reason for exam; i.e. extremities or head) *Use of iterative reconstruction technique DLP: 776 mGy-cm FINDINGS: There is no evidence of an extra-axial collection. There is no evidence of intra-axial or extra-axial hemorrhage. There is an old large left MCA territory infarct that appears unchanged. There are old infarcts in the left basal ganglia. No mass, mass effect or acute infarct is seen. The ventricles and extra-axial CSF spaces are slightly prominent suggestive of mild generalized atrophy. There is mild nonspecific periventricular white matter disease. No mass, mass effect or acute infarct is appreciated. No skull fracture. Visualized paranasal sinuses, mastoid air cells and middle ears are clear. CT/CT head for stroke IMPRESSION: No acute intracranial findings. Large old left MCA territory infarct similar to previous exams. This critical result was discussed with Dr. Delaney at 1600 hours on 02/08/2022. It was ascertained that the content and urgency of the report was understood at the time of direct communication.
--- NOTE | 2022-02-08 15:50 | ECG_ITS ---
Test Reason : ?STROKE Blood Pressure : / mmHG Vent. Rate : 088 BPM Atrial Rate : 000 BPM P-R Int : 000 ms QRS Dur : 134 ms QT Int : 406 ms P-R-T Axes : 000 -15 161 degrees QTc Int : 491 ms Atrial fibrillation with premature ventricular or aberrantly conducted complexes Non-specific intra-ventricular conduction block T wave abnormality, consider lateral ischemia Abnormal ECG When compared with ECG of 28-JAN-2022 23:25, Atrial fibrillation has replaced Atrial flutter Referred By: Sandra Harris Electronically Signed By:JAYCEE LIU MD
[2022-02-08 16:00] VITALS: BP 140/90; PULSE 60; O2SAT 96
[2022-02-08 16:03] VITALS: BP 142/98; PULSE 89; RESP 16; TEMP 36.6; O2SAT 7; BMI 30.2
[2022-02-08 16:06] LABS: Glucose, Whole Blood 107 mg/dL (60-115); Prothrombin Time Whole Bld POC 16.7 sec (11.1-13.5); ~PT, ~INR - Anti Coag Clinic 1.4 (0.9-1.1)
--- NOTE | 2022-02-08 16:08 | ED_ITS ---
HPI - Weakness General Chief complaint: Stroke Stated complaint: Stroke Alert Time Seen by Provider: 02/08/22 15:49 Source: patient and EMS Mode of arrival: EMS Limitations: language barrier (Maldivian speaking, staffing specialist used patient appears to be confused, does follow commands) History of Present Illness HPI Narrative: 61-year-old male brought to emergency department by ambulance for evaluation nausea with increased right-sided weak. According to paramedics, at 15:10 hours, the patient has sudden onset of nausea with right-sided weakness. The patient may have some memory deficits at baseline based on his previous record. The patient says is Maldivian-speaking only and a staffing specialist was used. The patient had difficulty telling us his name however he was able to follow commands and and Occitan in follows commands in Occitan but does not speak Maldivian. The patient does have a right facial droop and right-sided weakness compared to the left. There were no family members present at the of my evaluation. Patient was initially evaluated financial coordinator stretcher by Dr. Harris and sent immediately to CT scan. I then assumed care of the patient when he was brought to the exam room. The patient was seen here in the emergency department on 01/27/2022 with a similar presentation and hospitalized. In reviewing the records, the patient had a previous stroke with residual right facial droop and right sided weakness. He also has a history of atrial fibrillation and is on Eliquis. The patient has a AICD and cannot get an MRI. In reviewing the Dr. Fernando's neurology consult dated 01/28/2022, the patient's chief complaint was headache. Dr. Fernando's exam noted that the patient was alert and awake with diminished spontaneity of speech and fluency, the patient was able to repeat simple words but he could not name simple objects. The patient was following commands. He had moderate right-sided facial weakness and moderate right hemiparesis. 190: Patient's was at the patient's bedside and she did give me a history. She states that prior to coming to the emergency department the patient complained of feeling dizzy and had to move his bowels. The he was on the toilet and he began to drool. He also had clear liquid coming out of his nose. He was awake and alert and there was no seizure activity. He continued to complain of nausea and did appear to be slightly short of breath. She was concerned that he might be having a seizure and called an ambulance. She states that he does have a seizure disorder and his seizures are usually tonic clonic. He does take Keppra 500 mg twice a day. Related Data Home Medications Medication Instructions Recorded Confirmed apixaban 5 mg tablet (Eliquis) 5 mg PO BID 07/02/21 01/28/22 atorvastatin 80 mg tablet 80 mg PO BEDTIME 07/02/21 01/28/22 citalopram 10 mg tablet 10 mg PO DAILY 07/02/21 01/28/22 mirtazapine 7.5 mg tablet 7.5 mg PO DAILY 07/02/21 01/28/22 cholecalciferol (vitamin D3) 25 25 mcg PO DAILY 01/28/22 01/28/22 mcg (1,000 unit) tablet famotidine 20 mg tablet 20 mg PO DAILY 01/28/22 01/28/22 Previous Rx's Medication Instructions Recorded levetiracetam 500 mg tablet 500 mg PO BID 30 days #60 tabs 07/09/21 sacubitril 49 mg-valsartan 51 mg 1 tab PO BID #30 tabs 07/09/21 tablet (Entresto) acetaminophen 500 mg capsule 500 mg PO Q6H PRN fever or pain 01/15/22 #20 caps aspirin 81 mg capsule 81 mg PO Q48H #30 caps 01/30/22 bumetanide 1 mg tablet 1 mg PO DAILY #30 tabs 01/30/22 carvedilol 12.5 mg tablet 12.5 mg PO BID #60 tabs 01/30/22 spironolactone 25 mg tablet 25 mg PO DAILY #30 tabs 01/30/22 ondansetron 4 mg disintegrating 4 mg PO Q6-8H PRN nausea and 02/08/22 tablet vomiting #14 tabs Allergies Allergy/AdvReac Type Severity Reaction Status Date / Time No Known Allergies Allergy Verified 12/25/21 14:47 [No Known Allergies*] Review of Systems Review of Systems: Yes Unobtainable due to mental status PMFSH Past Medical History Medical History Acute decompensated heart failure Atrial fibrillation with rapid ventricular response Cardiac defibrillator in place Cerebrovascular accident CHF (congestive heart failure) CHF (congestive heart failure) Chronic systolic heart failure CKD (chronic kidney disease), stage II CVA (cerebral vascular accident) Embolism of kidney Gallstones Hypertension NICM (nonischemic cardiomyopathy) NSVT (nonsustained ventricular tachycardia) Persistent atrial fibrillation Renal infarct Uncontrolled hypertension Surgical History History of cardiac defibrillator placement Family History Family History Other CAD (coronary artery disease) Social History Social History Household Members: Unknown / Unable to assess Housing: Unknown / Unable to assess Do you presently have visiting nurse or other home services: No Unable to assess alcohol history related to: Unknown Alcohol intake: never Patient Tobacco Use Status: Never used Tobacco Advance Directives: Yes Advance Directives on File: Yes Advance Directives Date on File: 10/18/20 service: Yes Current occupational status: employed Physical Exam Vital Signs: Vital Signs: Last Vital Signs Temp 98 F 02/08/22 16:03 Pulse 89 02/08/22 16:03 Resp 16 02/08/22 16:03 BP 142/98 H 02/08/22 16:03 Pulse Ox 7 L 02/08/22 16:03 O2 Del Method 02/08/22 16:03 BMI result Body Mass Index 30.2 Const: Other: Awake, alert, Maldivian speaking only, does understand Occitan, unable to tell me his name or answer questions. He does follow commands in Maldivian and in Occitan. He has a right facial droop and right-sided weakness HEENT: Head: Yes normal to inspection, Yes normocephalic and Yes atraumatic Ears: external ears normal General nose exam: Normal external nose present Face and sinus: Yes normal facial exam Mouth: Normal oral and palatal mucosa present Throat: Yes posterior oropharynx normal Eyes: General: appearance normal, both eyes and all related structures Pupils: Equal, round and reactive pupils present Neck: Neck: Yes normal visual inspection, Yes no lymphadenopathy, Yes trachea midline and Yes supple Chest: Chest palpation & inspection: normal inspection of the chest and normal palpation of entire chest wall Resp: Effort & Inspection: normal respiratory effort and able to speak in complete sentences Auscultation: clear to auscultation bilaterally Cardio: Rate: regular rate Rhythm: abnormal rhythm irregularly irregular Heart sounds: S1 normal heart sound present, S2 normal heart sound present and no murmurs GI: Inspection: Yes normal to inspection Palpation (GI): Soft to palpation, nontender and no guarding Auscultation: normal bowel sounds : General: Yes no CVA tenderness Back/Spine/Pelvis: Back: no CVA tenderness Skin: General skin exam: no rashes or lesions noted Neuro: Cranial nerves: Yes Equal, round and reactive pupils present and Yes Other cranial nerve findings present (Right facial droop) Cognition (Neuro): normal cognition Motor exam (neuro): Other motor observations present (Able to move right arm right leg against gravity but weak compared to left) Extrem: General: Yes normal to inspection Psych: Appearance: grossly normal Speech and movement: Other speech and movement exam findings present (Psych) (Patient is not speaking) Attitude: co operative NIH Stroke Scale Internal: Initial- Upon Arrival Level of Consciousness: Alert Level of Consciousness Questions: Answers neither question correctly Level of Consciousness Commands: Performs both tasks correctly Best Gaze: Normal Visual: No visual loss Facial Palsy: Complete paralysis Motor Arm (Right): Some effort against gravity Motor Arm (Left): No drift Motor Leg (Right): Some effort against gravity Motor Leg (Left): No drift Limb Ataxia: Absent Sensory: Normal Best Language: Mute, global aphasia Dysarthia: Normal Extinction and Inattention: No abnormality Score: 12 Course Course Course Narrative: 61-year-old male who presents emergency department for evaluation of nausea and right-sided weakness. This information was obtained from the paramedics with the patient's last well-known time being at 15:10 hours. The patient does have a history of atrial fibrillation and is on Eliquis therefore he is not a thrombolytics candidate. The patient was also here on 01/27/2022 with similar presentation, he may have also had a headache at that time. The patient had negative CT scan and he did have a neurology consult who recommended that the patient continue on Eliquis and start aspirin. The patient does have residual right-sided weakness and right facial droop from a previous stroke. The patient's exam does reveal right-sided facial droop and right-sided weakness, it is unclear to me if this is worse than his baseline. He did complain of nausea as his nourished complaint therefore he was given Reglan 10 mg IV and Benadryl 25 mg IV. A stroke workup was ordered. 1627: The radiologist did call to inform us that the CT scan revealed no acute findings. Interpretation below: IMPRESSION: No acute intracranial findings. Large old left MCA territory infarct similar to previous exams. This critical result was discussed with Dr. Delaney at 1600 hours on 02/08/2022. It was ascertained that the content and urgency of the report was understood at the time of direct communication. Dictated By:Sandra Corbin MD I did discuss the case with our covering neurologist, Dr. Fernando. At this point he agrees that this patient is not a thrombolytics candidate since he is on Eliquis. Also he does not think that this patient would be appropriate for clot retrieval. 1904: The patient's laboratory evaluation was unremarkable and consistent with his chronic kidney disease. His 12 EKG was consistent with chronic atrial fibrillation. The patient does feel better after receiving the regular in and Benadryl however his thinks that he is still having nausea therefore he was given Zofran ODT 4 mg . At this time I do not have a clear cause for symptoms but I do not think that he needs to be hospitalized and I did discuss this with his and she agrees. I did prescribe Zofran ODT 4 mg every 6-8 hours as needed for nausea. Patient was advised to follow-up with his PCP for re- evaluation and return if his symptoms get worse or if he develops any symptoms that are concerning to him or his . [facility] Medical Records Attestation: I reviewed the patient's medical records. Lab Data Attestation: I reviewed the patient's lab results. Result diagrams: 02/08/22 16:27 02/08/22 16:27 Labs: Lab Results 02/08/22 02/08/22 02/08/22 Range/Units 16:00 16:00 16:27 WBC 4.7 L (4.8-10.8) X10*3/uL RBC 4.48 L (4.60-5.80) X10*6/uL Hgb 14.0 (14.0-18.0) g/dl Hct 41.4 L (42.0-52.0) % MCV 92.4 (80.0-98.0) fL MCH 31.3 (27.0-33.0) pg MCHC 33.8 (31.0-36.0) g/dl RDW 13.7 (11.0-16.0) % Plt Count 264 (160-400) X10*3/uL MPV 11.2 (9.4-12.4) fL Immature Gran % (Auto) 0.2 (0.0-0.4) % Neut % (Auto) 64.7 (45-73) % Lymph % (Auto) 26.3 (20-40) % Wheeler % (Auto) 7.2 (2-11) % Eos % (Auto) 0.8 (0-4) % Baso % (Auto) 0.8 (0-2) % Lymph # (Auto) 1.2 (1.2-4.9) X10*3/uL Wheeler # (Auto) 0.3 (0.1-1.2) X10*3/uL Eos # (Auto) 0.0 (0.0-0.4) X10*3/uL Baso # (Auto) 0.0 (0.0-0.2) X10*3/uL Abs Immat Gran (auto) 0.01 (0.00-0.03) X10*3/uL Absolute Neuts (auto) 3.1 (2.0-8.3) x10*3/uL Absolute Nucleated RBC 0.000 (0.0-0.012) X10*3/uL Nucleated RBC % (auto) 0.0 (0.0-0.2) /100WBC PT (10.0-13.1) SEC Whole Blood PT 16.7 H (11.1-13.5) sec INR (0.9-1.1) Whole Blood INR 1.4 H (0.9-1.1) APTT (26.0-36.4) SEC Sodium (135-145) mmol/L Potassium (3.3-5.1) mmol/L Chloride (96-108) mmol/L Carbon Dioxide (22-29) mmol/L Anion Gap (12-20) BUN (9-16) mg/dL Creatinine (0.5-1.4) mg/dL Estim Creat Clear Calc Estimated GFR POC Glucose 107 (60-115) mg/dL Random Glucose (60-115) mg/dL Calcium (8.4-10.2) mg/dL Total Bilirubin (0.0-1.0) mg/dL Direct Bilirubin (0.0-0.5) mg/dL AST (5-37) U/L ALT (0-40) U/L Alkaline Phosphatase (39-117) U/L Total Creatine Kinase (38-174) U/L Troponin I High Sens (<3.5-35.0) ng/L Total Protein (6.5-8.0) g/dL Albumin (3.5-5.0) g/dL 02/08/22 02/08/22 02/08/22 Range/Units 16:27 16:27 16:27 WBC (4.8-10.8) X10*3/uL RBC (4.60-5.80) X10*6/uL Hgb (14.0-18.0) g/dl Hct (42.0-52.0) % MCV (80.0-98.0) fL MCH (27.0-33.0) pg MCHC (31.0-36.0) g/dl RDW (11.0-16.0) % Plt Count (160-400) X10*3/uL MPV (9.4-12.4) fL Immature Gran % (Auto) (0.0-0.4) % Neut % (Auto) (45-73) % Lymph % (Auto) (20-40) % Wheeler % (Auto) (2-11) % Eos % (Auto) (0-4) % Baso % (Auto) (0-2) % Lymph # (Auto) (1.2-4.9) X10*3/uL Wheeler # (Auto) (0.1-1.2) X10*3/uL Eos # (Auto) (0.0-0.4) X10*3/uL Baso # (Auto) (0.0-0.2) X10*3/uL Abs Immat Gran (auto) (0.00-0.03) X10*3/uL Absolute Neuts (auto) (2.0-8.3) x10*3/uL Absolute Nucleated RBC (0.0-0.012) X10*3/uL Nucleated RBC % (auto) (0.0-0.2) /100WBC PT 18.9 H (10.0-13.1) SEC Whole Blood PT (11.1-13.5) sec INR 1.6 H (0.9-1.1) Whole Blood INR (0.9-1.1) APTT 40.4 H (26.0-36.4) SEC Sodium 144 (135-145) mmol/L Potassium 4.7 D (3.3-5.1) mmol/L Chloride 110 H (96-108) mmol/L Carbon Dioxide 23 (22-29) mmol/L Anion Gap 16 (12-20) BUN 19 H (9-16) mg/dL Creatinine 1.45 H (0.5-1.4) mg/dL Estim Creat Clear Calc 56.8 Estimated GFR 49 POC Glucose (60-115) mg/dL Random Glucose 131 H (60-115) mg/dL Calcium 9.2 D (8.4-10.2) mg/dL Total Bilirubin (0.0-1.0) mg/dL Direct Bilirubin (0.0-0.5) mg/dL AST (5-37) U/L ALT (0-40) U/L Alkaline Phosphatase (39-117) U/L Total Creatine Kinase 61 (38-174) U/L Troponin I High Sens 11.4 (<3.5-35.0) ng/L Total Protein (6.5-8.0) g/dL Albumin (3.5-5.0) g/dL 02/08/22 Range/Units 16:27 WBC (4.8-10.8) X10*3/uL RBC (4.60-5.80) X10*6/uL Hgb (14.0-18.0) g/dl Hct (42.0-52.0) % MCV (80.0-98.0) fL MCH (27.0-33.0) pg MCHC (31.0-36.0) g/dl RDW (11.0-16.0) % Plt Count (160-400) X10*3/uL MPV (9.4-12.4) fL Immature Gran % (Auto) (0.0-0.4) % Neut % (Auto) (45-73) % Lymph % (Auto) (20-40) % Wheeler % (Auto) (2-11) % Eos % (Auto) (0-4) % Baso % (Auto) (0-2) % Lymph # (Auto) (1.2-4.9) X10*3/uL Wheeler # (Auto) (0.1-1.2) X10*3/uL Eos # (Auto) (0.0-0.4) X10*3/uL Baso # (Auto) (0.0-0.2) X10*3/uL Abs Immat Gran (auto) (0.00-0.03) X10*3/uL Absolute Neuts (auto) (2.0-8.3) x10*3/uL Absolute Nucleated RBC (0.0-0.012) X10*3/uL Nucleated RBC % (auto) (0.0-0.2) /100WBC PT (10.0-13.1) SEC Whole Blood PT (11.1-13.5) sec INR (0.9-1.1) Whole Blood INR (0.9-1.1) APTT (26.0-36.4) SEC Sodium (135-145) mmol/L Potassium (3.3-5.1) mmol/L Chloride (96-108) mmol/L Carbon Dioxide (22-29) mmol/L Anion Gap (12-20) BUN (9-16) mg/dL Creatinine (0.5-1.4) mg/dL Estim Creat Clear Calc Estimated GFR POC Glucose (60-115) mg/dL Random Glucose (60-115) mg/dL Calcium (8.4-10.2) mg/dL Total Bilirubin 1.0 (0.0-1.0) mg/dL Direct Bilirubin 0.4 (0.0-0.5) mg/dL AST 26 D (5-37) U/L ALT 39 (0-40) U/L Alkaline Phosphatase 103 (39-117) U/L Total Creatine Kinase (38-174) U/L Troponin I High Sens (<3.5-35.0) ng/L Total Protein 6.7 (6.5-8.0) g/dL Albumin 4.1 D (3.5-5.0) g/dL ECG Data Attestation: I personally reviewed and interpreted this ECG as follows: Interpretation: 1633: Atrial fibrillation with a rate of 88, prolonged QRS duration 134 milliseconds, prolonged QTC interval 491 milliseconds, no ST segment elevation, no ST segment depression, poor R-wave progression V1 through V3, occasional PVC, nonspecific interventricular conduction delay, inverted T-waves V4 through V 6. Compared to EKG dated 01/28/2022 the PVCs are new, inverted T-waves laterally are old, poor R-wave progression old, atrial fibrillation old. Critical Care Time Critical Care Time Critical Care Time: Yes Total Critical Care Time: 30 Attestation: Critical Care: The patient was critically ill with a high probability of imminent or life threatening deterioration. I spent greater than 30 minutes of discontinuous time evaluating the patient,delivering critical care at the bedside, discussing and evaluating pertinent data with consultants, stroke alert protocol. Critical care time does not include time spent performing separately billable procedures or teaching. Total time spent performing critical care was 30 minutes. Discharge Plan Discharge Clinical Impression: Dizziness, Nausea Patient Disposition: Home, Self-Care Instructions: Dizziness (ED) Additional Instructions: Your blood work was unremarkable. Your CT scan was consistent with your old stroke and there was no evidence for a new stroke or bleeding in the brain. Take Zofran ODT 4 mg pills, 1 pill dissolved in your mouth every 8 hours as needed for nausea and vomiting. Follow-up with your doctor in 2 days. Please return to the emergency department if your symptoms get worse or if you develop any symptoms that are concerning to you. Prescriptions: New ondansetron 4 mg tablet,disintegrating 4 mg PO Q6-8H PRN (Reason: nausea and vomiting) Qty: 14 0RF No Action atorvastatin 80 mg tablet 80 mg PO BEDTIME citalopram 10 mg tablet 10 mg PO DAILY mirtazapine 7.5 mg tablet 7.5 mg PO DAILY Eliquis 5 mg tablet 5 mg PO BID Entresto 49-51 mg Tablet 1 tab PO BID Qty: 30 0RF Protocol: Hold for SBP< HOLD for SBP < : 90 levetiracetam 500 mg Tablet 500 mg PO BID 30 Days Qty: 60 0RF acetaminophen 500 mg capsule 500 mg PO Q6H PRN (Reason: fever or pain) Qty: 20 0RF famotidine 20 mg Tablet 20 mg PO DAILY cholecalciferol (vitamin D3) 25 mcg (1,000 unit) Tablet 25 mcg PO DAILY carvedilol 12.5 mg Tablet 12.5 mg PO BID Qty: 60 0RF Protocol: Hold for SBP/HR < HOLD for SBP < : 90 HOLD for HR < : 60 spironolactone 25 mg tablet 25 mg PO DAILY Qty: 30 0RF aspirin 81 mg capsule 81 mg PO Q48H Qty: 30 0RF bumetanide 1 mg tablet 1 mg PO DAILY Qty: 30 0RF
[2022-02-08 16:36] LABS: MANUAL DIFF FLAG NO
[2022-02-08 16:43] LABS: Basophils Percent Auto 0.8 % (0-2); Eosinophils Percent Auto 0.8 % (0-4); Hematocrit 41.4 % (42.0-52.0); Imm Gran Abs Auto 0.01 X10*3/uL (0.00-0.03); Imm Gran Pct Auto 0.2 % (0.0-0.4); Lymphocytes Absolute Auto 1.2 X10*3/uL (1.2-4.9); Lymphocytes Percent Auto 26.3 % (20-40); Mean Corpuscular HGB Conc 33.8 g/dl (31.0-36.0); Mean Corpuscular Hemoglobin 31.3 pg (27.0-33.0); Mean Corpuscular Volume 92.4 fL (80.0-98.0); Mean Platelet Volume 11.2 fL (9.4-12.4); Monocytes Absolute Auto 0.3 X10*3/uL (0.1-1.2); Monocytes Percent Auto 7.2 % (2-11); Neutrophils Absolute Auto 3.1 x10*3/uL (2.0-8.3); Neutrophils Percent Auto 64.7 % (45-73); Platelet Count 264 X10*3/uL (160-400); Red Blood Count 4.48 X10*6/uL (4.60-5.80); Red Cell Distribution Width 13.7 % (11.0-16.0); White Blood Count 4.7 X10*3/uL (4.8-10.8)
[2022-02-08] MEDS: diphenhydrAMINE HCL 50 MG/ML VIAL 25 MG IVPUSH (16:45)
[2022-02-08] MEDS: Metoclopramide HCl 10 MG/2 ML VIAL IVPUSH (16:45)
[2022-02-08 16:48] LABS: INTERNATIONAL NORM RATIO 1.6 (0.9-1.1); Prothrombin Time 18.9 SEC (10.0-13.1)
[2022-02-08 16:51] LABS: Partial Thromboplastin Time 40.4 SEC (26.0-36.4)
[2022-02-08 16:52] LABS: Stroke Lab Use COMPLETE
[2022-02-08 16:53] LABS: Alanine Aminotransferase 39 U/L (0-40); Albumin Level 4.1 g/dL (3.5-5.0); Alkaline Phosphatase 103 U/L (39-117); Aspartate Amino Transferase 26 U/L (5-37); Bilirubin Direct 0.4 mg/dL (0.0-0.5); Total Protein 6.7 g/dL (6.5-8.0)
[2022-02-08 16:54] LABS: Anion Gap 16 (12-20); Blood Urea Nitrogen 19 mg/dL (9-16); Calcium 9.2 mg/dL (8.4-10.2); Carbon Dioxide 23 mmol/L (22-29); Chloride 110 mmol/L (96-108); Creatinine Clr Calc Pharmacy 56.8; Estimated Glomerular Filt Rate 49; Glucose Random 131 mg/dL (60-115); Potassium 4.7 mmol/L (3.3-5.1); Sodium 144 mmol/L (135-145)
[2022-02-08 17:00] LABS: Troponin-I High Sensitivity 11.4 ng/L (<3.5-35.0)
[2022-02-08] MEDS: Ondansetron ODT 4 MG TAB.RAPDIS TRANSLINGU (19:09)
[2022-02-08 19:10] VITALS: BP 150/118; PULSE 107; RESP 17; O2SAT 98
--- NOTE | 2022-02-08 19:15 | PC.NURSE ---
MD aware of blood pressures and heart rate at time of discharge. pt resting comfortably on stretcher. doctor says pt will just go home and take night time blood pressure medicatons and follow up outpatient. CT neg for acute findings.
== END 2022-02-08 19:37 | disposition home or self-care (01) ==
PROVIDERS: Student in an Organized Health Care Education/Training Program; Emergency Provider Emergency Medicine Emergency Medical Services; PCP Internal Medicine
DX: R42 Dizziness and giddiness (principal); R11.2 Nausea with vomiting, unspecified; R29.712 NIHSS score 12; Z79.899 Other long term (current) drug therapy
CPT/HCPCS: 36415; 70450; 80048; 80076; 82550; 82947; 84484; 85025; 85610; 85730; 93005; 96374; 96375; 99284; J1200; J2765

== ENCOUNTER → 2022-02-25 10:44 | Outpatient (BNVA) | payer OTHER, MEDICAID, SELFPAY | PROVIDERS: PCP Internal Medicine; Visit Provider Internal Medicine Cardiovascular Disease | DX: I50.42 Chronic combined systolic (congestive) and diastolic (congestive) heart failure (principal); I42.8 Other cardiomyopathies; I48.0 Paroxysmal atrial fibrillation | CPT/HCPCS: 93005; 99212 ==

== ENCOUNTER 2022-03-08 10:33 | Day surgery (SDC) | payer OTHER, SELFPAY ==
[2022-03-04 11:46] VITALS: BMI 29.0
--- NOTE | 2022-03-06 11:55 | P.CONAN_ITS ---
Documented by User: Ni Plaza NP 03/06/22 12:00 HPI - Anesthesia Eval Consult details Narrative: 61yo M for Cardioversion PMFSH Active Problems Active Problems: All Active Problems (Updated 03/04/22 @ 11:46 by Barbara Morales RN) DOT (acute kidney injury) (Acute) Congestive heart failure (Acute) PAC (premature atrial contraction) (Acute) Chronic cholecystitis (Acute) Chronic heart failure (Acute) PAF (paroxysmal atrial fibrillation) (Acute) NICM (nonischemic cardiomyopathy) (Acute) CKD (chronic kidney disease), stage II (Acute) Past Medical History Medical History Acute decompensated heart failure Atrial fibrillation with rapid ventricular response Cardiac defibrillator in place Cerebrovascular accident CHF (congestive heart failure) Chronic systolic heart failure CKD (chronic kidney disease), stage II CVA (cerebral vascular accident) Embolism of kidney Gallstones Hypertension NICM (nonischemic cardiomyopathy) NSVT (nonsustained ventricular tachycardia) Persistent atrial fibrillation Renal infarct Uncontrolled hypertension Family History Family History Other CAD (coronary artery disease) Surgical History Surgical History History of cardiac defibrillator placement Social History Social History Household Members: Unknown / Unable to assess Housing: Unknown / Unable to assess Do you presently have visiting nurse or other home services: No Unable to assess alcohol history related to: Unknown Alcohol intake: never Patient Tobacco Use Status: Never used Tobacco Use of substances other than those prescribed or required for medical reasons: No Are you DNR?: No Advance Directives: Yes Advance Directives on File: Yes Advance Directives Date on File: 10/18/20 service: Yes Current occupational status: employed Meds Allergies Allergy/AdvReac Type Severity Reaction Status Date / Time No Known Allergies Allergy Verified 02/25/22 11:49 [No Known Allergies*] Home Medications Medication Instructions Recorded Confirmed Last Taken Type apixaban 5 mg tablet (Eliquis) 5 mg PO BID 07/02/21 03/04/22 01/27/22 History atorvastatin 80 mg tablet 80 mg PO BEDTIME 07/02/21 03/04/2201/27/22 History citalopram 10 mg tablet 10 mg PO DAILY 07/02/21 03/04/22 01/27/22 History mirtazapine 7.5 mg tablet 7.5 mg PO DAILY 07/02/21 03/04/22 01/27/22 History cholecalciferol (vitamin D3) 25 25 mcg PO DAILY 01/28/22 03/04/22 01/27/22 History mcg (1,000 unit) tablet famotidine 20 mg tablet 20 mg PO DAILY 01/28/22 03/04/22 01/27/22 History Exam Exam Date and Time: March 06, 2022 1155 Height,Weight and Vital Signs: Height 5 ft 8 in Weight 86.636 kg Pertinent Lab Results Pertinent Lab Results: Laboratory Tests 02/08/22 02/08/22 16:27 16:27 WBC 4.7 L Hgb 14.0 Hct 41.4 L Plt Count 264 Sodium 144 Potassium 4.7 D Chloride 110 H Carbon Dioxide 23 BUN 19 H Creatinine 1.45 H Narrative Narrative: ICD Interr 12/2021 ICD Persistent atrial fibrillation No other arrhythmia. EKG 01/2022 Vent. Rate : 088 BPM ? ? Atrial Rate : 000 BPM ?? P-R Int : 000 ms? QRS Dur : 134 ms ? ? QT Int : 406 ms ? ? ? P-R-T Axes : 000 -15 161 degrees ?? QTc Int : 491 ms ? Atrial fibrillation with premature ventricular or aberrantly conducted complexes Non-specific intra-ventricular conduction block T wave abnormality, consider lateral ischemia Abnormal ECG When compared with ECG of 28-JAN-2022 23:25, Atrial fibrillation has replaced Atrial flutter ECHO 06/2021 Conclusions: - 1. Severely dilated left ventricle with severe LV systolic ? ? dysfunction with LVEF of 15-20% with elevated filling pressures? 2. Mildly dilated right ventricle with reduced systolic function 3. Severely dilated left atrium? 4. At least moderate mitral regurgitation and mild aortic? regurgitation? 5. [id number] elevation of right ventricular systolic? ? ? pressure with significant elevated right atrial pressures? 6. Mildly dilated ascending aorta? 7. Trivial pericardial effusion? ? ? Assessment and Plan Assessment Anesthesia Assessment: Chart Reviewed Documented by User: Choco Aragon MD 03/08/22 11:30 [facility] Past Medical History Medical History Acute decompensated heart failure Atrial fibrillation with rapid ventricular response Cardiac defibrillator in place Cerebrovascular accident CHF (congestive heart failure) Chronic systolic heart failure CKD (chronic kidney disease), stage II CVA (cerebral vascular accident) Embolism of kidney Gallstones Hypertension NICM (nonischemic cardiomyopathy) NSVT (nonsustained ventricular tachycardia) Persistent atrial fibrillation Renal infarct Uncontrolled hypertension Family History Family History Other CAD (coronary artery disease) Family history of problems with anesthesia: No Surgical History Surgical History History of cardiac defibrillator placement History of Problems with Anesthesia: No Social History Social History Household Members: Unknown / Unable to assess Housing: Unknown / Unable to assess Do you presently have visiting nurse or other home services: No Unable to assess alcohol history related to: Unknown Alcohol intake: never Patient Tobacco Use Status: Never used Tobacco Use of substances other than those prescribed or required for medical reasons: No Are you DNR?: No Advance Directives: Yes Advance Directives on File: Yes Advance Directives Date on File: 10/18/20 service: Yes Current occupational status: employed Meds Allergies Allergy/AdvReac Type Severity Reaction Status Date / Time No Known Allergies Allergy Verified 02/25/22 11:49 [No Known Allergies*] Home Medications Medication Instructions Recorded Confirmed Last Taken Type apixaban 5 mg tablet (Eliquis) 5 mg PO BID 07/02/21 03/04/22 01/27/22 History atorvastatin 80 mg tablet 80 mg PO BEDTIME 07/02/21 03/04/22 01/27/22 History citalopram 10 mg tablet 10 mg PO DAILY 07/02/21 03/04/22 01/27/22 History mirtazapine 7.5 mg tablet 7.5 mg PO DAILY 07/02/21 03/04/22 01/27/22 History cholecalciferol (vitamin D3) 25 25 mcg PO DAILY 01/28/22 03/04/22 01/27/22 History mcg (1,000 unit) tablet famotidine 20 mg tablet 20 mg PO DAILY 01/28/22 03/04/22 01/27/22 History Exam Airway Mallampati Class: III TM Dist: >3cm Neck ROM: Full Loose/Missing/Broken Teeth: No Heart: irreg irreg s1s2 Lungs: cta b/l Assessment and Plan Assessment Anesthesia Assessment: Anesthesia Plan Discussed Final Anesthetic Review Family History of Problems with Anesthesia: No History of Problems with Anesthesia: No NPO: Yes ASA Class: IV Final Preanesthetic Review: No Changes in Pt Med Stat, Meds/Allgs Chart Reviewed, Consent Obtained/Reviewed and Anes Risks/Benef Reviewed Patient Risk: High Procedure Risk: High Assessment/Block/Sedation in SS: Assess/Block/Sedation-SS Anesthetic Plan Anesthetic Plan: GA and Agree w/ Assess. and Plan Disposition: Standard PACU
--- NOTE | 2022-03-08 | ECG_ITS ---
Test Reason : s/p cardioversion Blood Pressure : / mmHG Vent. Rate : 067 BPM Atrial Rate : 067 BPM P-R Int : 200 ms QRS Dur : 136 ms QT Int : 464 ms P-R-T Axes : 063 -26 096 degrees QTc Int : 490 ms Normal sinus rhythm Non-specific intra-ventricular conduction block Left axis deviation Nonspecific T wave abnormality Abnormal ECG When compared with ECG of 08-FEB-2022 16:08, Sinus rhythm has replaced Atrial fibrillation Referred By: Ovidio Bobo Electronically Signed By:JAYCEE LIU MD
[2022-03-08 10:59] VITALS: BP 134/90; PULSE 66; RESP 16; TEMP 36.6; O2SAT 98
--- NOTE | 2022-03-08 10:59 | MHC.SHP ---
Pre-Procedural Eval Section A Date of Service: 03/08/22 The patient is an INPATIENT: No Section B Chief Complaint: afib Details of Present Illness: Afib, cardiomyopathy. Here for cardioversion. Allergies: Allergies Allergy/AdvReac Type Severity Reaction Status Date / Time No Known Allergies Allergy Verified 02/25/22 11:49 [No Known Allergies*] Plan Diagnosis/Plan: Unchanged I have reviewed the history and physical and performed a pertinent physical examination on my patient. No changes have occurred unless specified.
[2022-03-08] MEDS: Amiodarone HCL 200 MG TABLET 400 MG PO (11:14)
[2022-03-08] MEDS: Apixaban 5 MG TABLET PO (11:14)
[2022-03-08] MEDS: Lactated Ringers 500 ML 20 ML IVCONT (11:17)
--- NOTE | 2022-03-08 12:09 | HO.CARDIVERS ---
Cardioversion Procedure Note Cardioversion Date of Procedure: 03/08/22 Ordering Provider: Ovidio Bobo Performing Provider: Ovidio Bobo Indication for Procedure: Afib, cardiomyopathy Performed with Transesophageal Echo: No Consent: Verbal and Written consent was obtained from the patient before starting. The patient was made aware of the risk of stroke and aspiration. Procedure: After consent obtained, defib pads were attached and the patient was sedated by the anesthesia team. Once adequate sedation achieved, single synchronized shock of 200 J was given which converted the rhythm to sinus. Left for recovery with anesthesia. Complications: None Recommendations: Continue amiodarone and Eliquis. Eliquis must not be missed in next 6 weeks.
[2022-03-08 12:10] VITALS: BP 122/72; PULSE 64; RESP 16; TEMP 37; O2SAT 100
[2022-03-08 12:15] VITALS: BP 108/68; PULSE 52; RESP 18; O2SAT 100
[2022-03-08 12:20] VITALS: BP 112/67; PULSE 55; RESP 15; O2SAT 100
[2022-03-08 12:25] VITALS: PULSE 49; RESP 16; O2SAT 100
[2022-03-08 12:40] VITALS: BP 165/73; PULSE 53; RESP 18; TEMP 36.8; O2SAT 100
== END 2022-03-08 13:11 | disposition home or self-care (01) ==
PROVIDERS: PCP Internal Medicine; Visit Provider Internal Medicine Cardiovascular Disease
PROC: 5A2204Z Restoration of Cardiac Rhythm, Single (ICD-10-PCS; principal; 2022-03-08 11:30)
DX: I48.0 Paroxysmal atrial fibrillation (principal); I42.8 Other cardiomyopathies; I13.0 Hypertensive heart and chronic kidney disease with heart failure and stage 1 through stage 4 chronic kidney disease, or unspecified chronic kidney disease; N18.2 Chronic kidney disease, stage 2 (mild); I50.22 Chronic systolic (congestive) heart failure; Z95.810 Presence of automatic (implantable) cardiac defibrillator; Z79.01 Long term (current) use of anticoagulants; Z79.82 Long term (current) use of aspirin; Z79.899 Other long term (current) drug therapy; Z86.73 Personal history of transient ischemic attack (TIA), and cerebral infarction without residual deficits
CPT/HCPCS: 92960; 93005; J0330; J0461; J2370

== ENCOUNTER → 2022-04-04 10:55 | Outpatient (BNVA) | payer OTHER, SELFPAY | PROVIDERS: PCP Internal Medicine; Referring Provider Internal Medicine; Visit Provider Internal Medicine Cardiovascular Disease | DX: I49.3 Ventricular premature depolarization (principal); I42.8 Other cardiomyopathies; I48.0 Paroxysmal atrial fibrillation; I50.42 Chronic combined systolic (congestive) and diastolic (congestive) heart failure; I13.0 Hypertensive heart and chronic kidney disease with heart failure and stage 1 through stage 4 chronic kidney disease, or unspecified chronic kidney disease; N18.2 Chronic kidney disease, stage 2 (mild); Z95.810 Presence of automatic (implantable) cardiac defibrillator; Z98.890 Other specified postprocedural states; Z79.899 Other long term (current) drug therapy; Z51.81 Encounter for therapeutic drug level monitoring | CPT/HCPCS: 93005; 99212 ==

== ENCOUNTER 2022-04-15 11:10 | Emergency (ER) | payer OTHER, SELFPAY ==
--- NOTE | ~2022-04-15 | XR_ITS ---
EXAMINATION: XR CHEST CLINICAL INFORMATION: Cough, shortness of breath COMPARISON: 01/27/2022 TECHNIQUE: 2 views of the chest were obtained. FINDINGS: Low lung volumes. Lungs are clear. No focal consolidation or mass. Normal pulmonary vascularity. No pleural effusion or pneumothorax. Normal heart size. Single lead pacer/AICD unchanged. Level degenerative changes of the spine. Right acromioclavicular osteoarthritis. No acute osseous abnormality. XR/XR chest 2V IMPRESSION: Low lung volumes but no acute pulmonary disease.
--- NOTE | 2022-04-15 11:19 | ED.URI ---
HPI - URI/Sore Throat General Chief Complaint: General Medical <Gemma Soto CNP - Last Filed: 04/15/22 11:30> Stated Complaint: flu symptons <Gemma Soto CNP - Last Filed: 04/15/22 11:30> Time Seen by Provider: 04/15/22 16:46 <Gemma Soto CNP - Last Filed: 04/15/22 11:30> History of Present Illness HPI Narrative: patient complains of cough productive of sputum for about 5 days with lots of coughing at night denies any chest pain or difficulty breathing <CRIS Cowart - Last Filed: 05/03/22 16:41> Related Data Home Medications: Home Medications Medication Instructions Recorded Confirmed apixaban 5 mg tablet (Eliquis) 5 mg PO BID 07/02/21 04/04/22 atorvastatin 80 mg tablet 80 mg PO BEDTIME 07/02/21 04/04/22 citalopram 10 mg tablet 10 mg PO DAILY 07/02/21 04/04/22 mirtazapine 7.5 mg tablet 7.5 mg PO DAILY 07/02/21 04/04/22 cholecalciferol (vitamin D3) 25 25 mcg PO DAILY 01/28/22 04/04/22 mcg (1,000 unit) tablet famotidine 20 mg tablet 20 mg PO DAILY 01/28/22 04/04/22 amiodarone 200 mg tablet 200 mg PO DAILY 04/04/22 04/04/22 Previous Rx's Medication Instructions Recorded levetiracetam 500 mg tablet 500 mg PO BID 30 days #60 tabs 07/09/21 sacubitril 49 mg-valsartan 51 mg 1 tab PO BID #30 tabs 07/09/21 tablet (Entresto) acetaminophen 500 mg capsule 500 mg PO Q6H PRN fever or pain 01/15/22 #20 caps aspirin 81 mg capsule 81 mg PO Q48H #30 caps 01/30/22 bumetanide 1 mg tablet 1 mg PO DAILY #30 tabs 01/30/22 carvedilol 12.5 mg tablet 12.5 mg PO BID #60 tabs 01/30/22 spironolactone 25 mg tablet 25 mg PO DAILY #30 tabs 01/30/22 ondansetron 4 mg disintegrating 4 mg PO Q6-8H PRN nausea and 02/08/22 tablet vomiting #14 tabs doxycycline monohydrate 100 mg 100 mg PO BID #14 caps 04/15/22 capsule <Gemma Soto CNP - Last Filed: 04/15/22 11:30> Allergies/Adverse Reactions: Allergies Allergy/AdvReac Type Severity Reaction Status Date / Time No Known Allergies Allergy Verified 04/04/22 11:25 [No Known Allergies*] <Gemma Soto CNP - Last Filed: 04/15/22 11:30> Review of Systems Review of Systems: positive for cough body aches and runny nose Negatives are no fever no chills no dizziness or weakness no fainting no feeling faint no headache no stiff neck no chest pain no shortness of breath no sore throat no difficulty swallowing no abdominal pain no nausea vomiting or diarrhea no leg swelling no calf pain or swelling no skin rash <CRIS Cowart - Last Filed: 05/03/22 16:41> Yes all other systems are reviewed and are negative <CRIS Cowart - Last Filed: 05/03/22 16:41> [facility] Past Medical History Source: nursing notes reviewed <CRIS Cowart - Last Filed: 05/03/22 16:41> Medical History: Medical History Acute decompensated heart failure Atrial fibrillation with rapid ventricular response Cardiac defibrillator in place Cerebrovascular accident CHF (congestive heart failure) Chronic systolic heart failure CKD (chronic kidney disease), stage II CVA (cerebral vascular accident) Embolism of kidney Gallstones Hypertension NICM (nonischemic cardiomyopathy) NSVT (nonsustained ventricular tachycardia) Persistent atrial fibrillation Renal infarct Uncontrolled hypertension <Gemma Soto CNP - Last Filed: 04/15/22 11:30> Surgical History: Surgical History History of cardiac defibrillator placement <Gemma Soto CNP - Last Filed: 04/15/22 11:30> Family History Family History: Family History Other CAD (coronary artery disease) <Gemma Soto [employer]ANDBLASTER STONE - Last Filed: 04/15/22 11:30> Social History Social History: Social History Household Members: Unknown / Unable to assess Housing: Unknown / Unable to assess Do you presently have visiting nurse or other home services: No Unable to assess alcohol history related to: Unknown Alcohol intake: never Patient Tobacco Use Status: Never used Tobacco Advance Directives: Yes Advance Directives on File: Yes Advance Directives Date on File: 10/18/20 service: Yes Current occupational status: employed <Gemma Lipscombmandeep Soto CNP - Last Filed: 04/15/22 11:30> Physical Exam Vital Signs: Vital Signs: Last Vital Signs Temp 98.6 F 04/15/22 11:20 Pulse 50 04/15/22 11:20 Resp 18 04/15/22 11:20 BP 138/70 04/15/22 11:20 Pulse Ox 97 04/15/22 11:20 O2 Del Method 04/15/22 11:20 BMI result Body Mass Index 27.9 <Gemma Cisneros RAFAEL Soto - Last Filed: 04/15/22 11:30> Vital Signs: Last Vital Signs Temp 98.6 F 04/15/22 11:20 Pulse 50 04/15/22 11:20 Resp 18 04/15/22 11:20 BP 138/70 04/15/22 11:20 Pulse Ox 97 04/15/22 11:20 O2 Del Method 04/15/22 11:20 BMI result Body Mass Index 27.9 <CRIS Cowart - Last Filed: 05/03/22 16:41> general appearance no acute distress, speaking full sentences Eyes no redness or discharge The nose no sinus tenderness The pharynx is clear without redness swelling or exudate, voice is normal X line neck is supple Chest clear to auscultation bilateral Heart no murmur Abdomen soft nontender Extremities no edema no calf tenderness no calf swelling Skin no rash Neuro no focal motor sensory deficits <CRIS Cowart - Last Filed: 05/03/22 16:41> Course Course Course Narrative: RME: Patient is a 61-year-old male who presents to emergency department for evaluation of flu-like symptoms. Complaining of feeling cold, cough, sore throat x 3 days. Denies sick contacts at home. PE: LS diminished bilaterally, no resp distress. Plan: COVID-19, influenza testing. Chest x-ray. Bradycardic, he is prescribed beta-blockers, will obtain EKG and basic labs. <Gemma Soto CNP - Last Filed: 04/15/22 11:30> RME: Patient is a 61-year-old male who presents to emergency department for evaluation of flu-like symptoms. Complaining of feeling cold, cough, sore throat x 3 days. Denies sick contacts at home. PE: LS diminished bilaterally, no resp distress. Plan: COVID-19, influenza testing. Chest x-ray. Bradycardic, he is prescribed beta-blockers, will obtain EKG and basic labs. chest x-ray was normal as was physical exam Labs were checked, CBC had no acute abnormalities, chemistry showed a creatinine of 1.52 which is consistent with previous, serology was negative for flu and COVID Patient was well appearing and was prescribed antibiotic for bronchitis <CRIS Cowart - Last Filed: 05/03/22 16:41> Medications Administered Discontinued Medications Generic Name Dose Route Start Last Admin Trade Name Freq PRN Reason Stop Dose Admin Doxycycline Monohydrate 100 mg 04/15/22 18:33 04/15/22 18:46 Doxycycline Monohydrate 100 Mg Capsule PO 04/15/22 18:34 100 mg ONCE ONE Administration <Gemma Soto CNP - Last Filed: 04/15/22 11:30> Medications Administered Discontinued Medications Generic Name Dose Route Start Last Admin Trade Name Freq PRN Reason Stop Dose Admin Doxycycline Monohydrate 100 mg 04/15/22 18:33 04/15/22 18:46 Doxycycline Monohydrate 100 Mg Capsule PO 04/15/22 18:34 100 mg ONCE ONE Administration <CRIS Cowart - Last Filed: 05/03/22 16:41> Medical Decision Making Lab Data Result Diagrams: 04/15/22 12:00 04/15/22 12:00 <Gemma Soto CNP - Last Filed: 04/15/22 11:30> Labs: Lab Results 04/15/22 04/15/22 04/15/22 Range/Units 11:45 11:45 12:00 WBC (4.8-10.8) X10*3/uL RBC (4.60-5.80) X10*6/uL Hgb (14.0-18.0) g/dl Hct (42.0-52.0) % MCV (80.0-98.0) fL MCH (27.0-33.0) pg MCHC (31.0-36.0) g/dl RDW (11.0-16.0) % Plt Count (160-400) X10*3/uL MPV (9.4-12.4) fL Immature Gran % (Auto) (0.0-0.4) % Neut % (Auto) (45-73) % Lymph % (Auto) (20-40) % [place] % (Auto) (2-11) % Eos % (Auto) (0-4) % Baso % (Auto) (0-2) % Lymph # (Auto) (1.2-4.9) X10*3/uL [place] # (Auto) (0.1-1.2) X10*3/uL Eos # (Auto) (0.0-0.4) X10*3/uL Baso # (Auto) (0.0-0.2) X10*3/uL Abs Immat Gran (auto) (0.00-0.03) X10*3/uL Absolute Neuts (auto) (2.0-8.3) x10*3/uL Absolute Nucleated RBC (0.0-0.012) X10*3/uL Nucleated RBC % (auto) (0.0-0.2) /100WBC Sodium (135-145) mmol/L Potassium (3.3-5.1) mmol/L Chloride (96-108) mmol/L Carbon Dioxide (22-29) mmol/L Anion Gap (12-20) BUN (9-16) mg/dL Creatinine (0.5-1.4) mg/dL Estim Creat Clear Calc Estimated GFR Random Glucose (60-115) mg/dL Calcium (8.4-10.2) mg/dL Magnesium (1.6-2.6) mg/dL Total Bilirubin (0.0-1.0) mg/dL AST (5-37) U/L ALT (0-40) U/L Alkaline Phosphatase (39-117) U/L Troponin I High Sens (<3.5-35.0) ng/L B-Natriuretic Peptide 316 H (<100) pg/mL Total Protein (6.5-8.0) g/dL Albumin (3.5-5.0) g/dL COVID-19 (KERON) Negative (Negative) COVID-19 Clin Com See Note Influenza Type A (LARRY) Negative (Negative) Influenza Type B (LARRY) Negative (Negative) Influenza A & B Note See Note 04/15/22 04/15/22 04/15/22 Range/Units 12:00 12:00 13:20 WBC 6.0 (4.8-10.8) X10*3/uL RBC 4.57 L (4.60-5.80) X10*6/uL Hgb 14.2 (14.0-18.0) g/dl Hct 42.8 (42.0-52.0) % MCV 93.7 (80.0-98.0) fL MCH 31.1 (27.0-33.0) pg MCHC 33.2 (31.0-36.0) g/dl RDW 12.6 (11.0-16.0) % Plt Count 218 (160-400) X10*3/uL MPV 10.8 (9.4-12.4) fL Immature Gran % (Auto) 0.2 (0.0-0.4) % Neut % (Auto) 56.0 (45-73) % Lymph % (Auto) 26.0 (20-40) % [place] % (Auto) 8.8 (2-11) % Eos % (Auto) 8.3 H (0-4) % Baso % (Auto) 0.7 (0-2) % Lymph # (Auto) 1.6 (1.2-4.9) X10*3/uL [place] # (Auto) 0.5 (0.1-1.2) X10*3/uL Eos # (Auto) 0.5 H (0.0-0.4) X10*3/uL Baso # (Auto) 0.0 (0.0-0.2) X10*3/uL Abs Immat Gran (auto) 0.01 (0.00-0.03) X10*3/uL Absolute Neuts (auto) 3.4 (2.0-8.3) x10*3/uL Absolute Nucleated RBC 0.000 (0.0-0.012) X10*3/uL Nucleated RBC % (auto) 0.0 (0.0-0.2) /100WBC Sodium 144 (135-145) mmol/L Potassium 3.7 D (3.3-5.1) mmol/L Chloride 110 H (96-108) mmol/L Carbon Dioxide 27 (22-29) mmol/L Anion Gap 11 L (12-20) BUN 25 H (9-16) mg/dL Creatinine 1.52 H (0.5-1.4) mg/dL Estim Creat Clear Calc 49.0 Estimated GFR 47 Random Glucose 107 (60-115) mg/dL Calcium 8.8 (8.4-10.2) mg/dL Magnesium 1.9 (1.6-2.6) mg/dL Total Bilirubin 0.7 (0.0-1.0) mg/dL AST 16 (5-37) U/L ALT 19 (0-40) U/L Alkaline Phosphatase 102 (39-117) U/L Troponin I High Sens 12.4 (<3.5-35.0) ng/L B-Natriuretic Peptide (<100) pg/mL Total Protein 6.3 L (6.5-8.0) g/dL Albumin 3.7 (3.5-5.0) g/dL COVID-19 (KERON) (Negative) COVID-19 Clin Com Influenza Type A (LARRY) (Negative) Influenza Type B (LARRY) (Negative) Influenza A & B Note 04/15/22 Range/Units 17:18 WBC (4.8-10.8) X10*3/uL RBC (4.60-5.80) X10*6/uL Hgb (14.0-18.0) g/dl Hct (42.0-52.0) % MCV (80.0-98.0) fL MCH (27.0-33.0) pg MCHC (31.0-36.0) g/dl RDW (11.0-16.0) % Plt Count (160-400) X10*3/uL MPV (9.4-12.4) fL Immature Gran % (Auto) (0.0-0.4) % Neut % (Auto) (45-73) % Lymph % (Auto) (20-40) % [place] % (Auto) (2-11) % Eos % (Auto) (0-4) % Baso % (Auto) (0-2) % Lymph # (Auto) (1.2-4.9) X10*3/uL [place] # (Auto) (0.1-1.2) X10*3/uL Eos # (Auto) (0.0-0.4) X10*3/uL Baso # (Auto) (0.0-0.2) X10*3/uL Abs Immat Gran (auto) (0.00-0.03) X10*3/uL Absolute Neuts (auto) (2.0-8.3) x10*3/uL Absolute Nucleated RBC (0.0-0.012) X10*3/uL Nucleated RBC % (auto) (0.0-0.2) /100WBC Sodium (135-145) mmol/L Potassium (3.3-5.1) mmol/L Chloride (96-108) mmol/L Carbon Dioxide (22-29) mmol/L Anion Gap (12-20) BUN (9-16) mg/dL Creatinine (0.5-1.4) mg/dL Estim Creat Clear Calc Estimated GFR Random Glucose (60-115) mg/dL Calcium (8.4-10.2) mg/dL Magnesium (1.6-2.6) mg/dL Total Bilirubin (0.0-1.0) mg/dL AST (5-37) U/L ALT (0-40) U/L Alkaline Phosphatase (39-117) U/L Troponin I High Sens 14.5 (<3.5-35.0) ng/L B-Natriuretic Peptide (<100) pg/mL Total Protein (6.5-8.0) g/dL Albumin (3.5-5.0) g/dL COVID-19 (KERON) (Negative) COVID-19 Clin Com Influenza Type A (LARRY) (Negative) Influenza Type B (LARRY) (Negative) Influenza A & B Note <Gemma Cisneros Charles, [employer] STONE - Last Filed: 04/15/22 11:30> Lab Results 04/15/22 04/15/22 04/15/22 Range/Units 11:45 11:45 12:00 WBC (4.8-10.8) X10*3/uL RBC (4.60-5.80) X10*6/uL Hgb (14.0-18.0) g/dl Hct (42.0-52.0) % MCV (80.0-98.0) fL MCH (27.0-33.0) pg MCHC (31.0-36.0) g/dl RDW (11.0-16.0) % Plt Count (160-400) X10*3/uL MPV (9.4-12.4) fL Immature Gran % (Auto) (0.0-0.4) % Neut % (Auto) (45-73) % Lymph % (Auto) (20-40) % [place] % (Auto) (2-11) % Eos % (Auto) (0-4) % Baso % (Auto) (0-2) % Lymph # (Auto) (1.2-4.9) X10*3/uL [place] # (Auto) (0.1-1.2) X10*3/uL Eos # (Auto) (0.0-0.4) X10*3/uL Baso # (Auto) (0.0-0.2) X10*3/uL Abs Immat Gran (auto) (0.00-0.03) X10*3/uL Absolute Neuts (auto) (2.0-8.3) x10*3/uL Absolute Nucleated RBC (0.0-0.012) X10*3/uL Nucleated RBC % (auto) (0.0-0.2) /100WBC Sodium (135-145) mmol/L Potassium (3.3-5.1) mmol/L Chloride (96-108) mmol/L Carbon Dioxide (22-29) mmol/L Anion Gap (12-20) BUN (9-16) mg/dL Creatinine (0.5-1.4) mg/dL Estim Creat Clear Calc Estimated GFR Random Glucose (60-115) mg/dL Calcium (8.4-10.2) mg/dL Magnesium (1.6-2.6) mg/dL Total Bilirubin (0.0-1.0) mg/dL AST (5-37) U/L ALT (0-40) U/L Alkaline Phosphatase (39-117) U/L Troponin I High Sens (<3.5-35.0) ng/L B-Natriuretic Peptide 316 H (<100) pg/mL Total Protein (6.5-8.0) g/dL Albumin (3.5-5.0) g/dL COVID-19 (KERON) Negative (Negative) COVID-19 Clin Com See Note Influenza Type A (LARRY) Negative (Negative) Influenza Type B (LARRY) Negative (Negative) Influenza A & B Note See Note 04/15/22 04/15/22 04/15/22 Range/Units 12:00 12:00 13:20 WBC 6.0 (4.8-10.8) X10*3/uL RBC 4.57 L (4.60-5.80) X10*6/uL Hgb 14.2 (14.0-18.0) g/dl Hct 42.8 (42.0-52.0) % MCV 93.7 (80.0-98.0) fL MCH 31.1 (27.0-33.0) pg MCHC 33.2 (31.0-36.0) g/dl RDW 12.6 (11.0-16.0) % Plt Count 218 (160-400) X10*3/uL MPV 10.8 (9.4-12.4) fL Immature Gran % (Auto) 0.2 (0.0-0.4) % Neut % (Auto) 56.0 (45-73) % Lymph % (Auto) 26.0 (20-40) % [place] % (Auto) 8.8 (2-11) % Eos % (Auto) 8.3 H (0-4) % Baso % (Auto) 0.7 (0-2) % Lymph # (Auto) 1.6 (1.2-4.9) X10*3/uL [place] # (Auto) 0.5 (0.1-1.2) X10*3/uL Eos # (Auto) 0.5 H (0.0-0.4) X10*3/uL Baso # (Auto) 0.0 (0.0-0.2) X10*3/uL Abs Immat Gran (auto) 0.01 (0.00-0.03) X10*3/uL Absolute Neuts (auto) 3.4 (2.0-8.3) x10*3/uL Absolute Nucleated RBC 0.000 (0.0-0.012) X10*3/uL Nucleated RBC % (auto) 0.0 (0.0-0.2) /100WBC Sodium 144 (135-145) mmol/L Potassium 3.7 D (3.3-5.1) mmol/L Chloride 110 H (96-108) mmol/L Carbon Dioxide 27 (22-29) mmol/L Anion Gap 11 L (12-20) BUN 25 H (9-16) mg/dL Creatinine 1.52 H (0.5-1.4) mg/dL Estim Creat Clear Calc 49.0 Estimated GFR 47 Random Glucose 107 (60-115) mg/dL Calcium 8.8 (8.4-10.2) mg/dL Magnesium 1.9 (1.6-2.6) mg/dL Total Bilirubin 0.7 (0.0-1.0) mg/dL AST 16 (5-37) U/L ALT 19 (0-40) U/L Alkaline Phosphatase 102 (39-117) U/L Troponin I High Sens 12.4 (<3.5-35.0) ng/L B-Natriuretic Peptide (<100) pg/mL Total Protein 6.3 L (6.5-8.0) g/dL Albumin 3.7 (3.5-5.0) g/dL COVID-19 (KERON) (Negative) COVID-19 Clin Com Influenza Type A (LARRY) (Negative) Influenza Type B (LARRY) (Negative) Influenza A & B Note 04/15/22 Range/Units 17:18 WBC (4.8-10.8) X10*3/uL RBC (4.60-5.80) X10*6/uL Hgb (14.0-18.0) g/dl Hct (42.0-52.0) % MCV (80.0-98.0) fL MCH (27.0-33.0) pg MCHC (31.0-36.0) g/dl RDW (11.0-16.0) % Plt Count (160-400) X10*3/uL MPV (9.4-12.4) fL Immature Gran % (Auto) (0.0-0.4) % Neut % (Auto) (45-73) % Lymph % (Auto) (20-40) % [place] % (Auto) (2-11) % Eos % (Auto) (0-4) % Baso % (Auto) (0-2) % Lymph # (Auto) (1.2-4.9) X10*3/uL [place] # (Auto) (0.1-1.2) X10*3/uL Eos # (Auto) (0.0-0.4) X10*3/uL Baso # (Auto) (0.0-0.2) X10*3/uL Abs Immat Gran (auto) (0.00-0.03) X10*3/uL Absolute Neuts (auto) (2.0-8.3) x10*3/uL Absolute Nucleated RBC (0.0-0.012) X10*3/uL Nucleated RBC % (auto) (0.0-0.2) /100WBC Sodium (135-145) mmol/L Potassium (3.3-5.1) mmol/L Chloride (96-108) mmol/L Carbon Dioxide (22-29) mmol/L Anion Gap (12-20) BUN (9-16) mg/dL Creatinine (0.5-1.4) mg/dL Estim Creat Clear Calc Estimated GFR Random Glucose (60-115) mg/dL Calcium (8.4-10.2) mg/dL Magnesium (1.6-2.6) mg/dL Total Bilirubin (0.0-1.0) mg/dL AST (5-37) U/L ALT (0-40) U/L Alkaline Phosphatase (39-117) U/L Troponin I High Sens 14.5 (<3.5-35.0) ng/L B-Natriuretic Peptide (<100) pg/mL Total Protein (6.5-8.0) g/dL Albumin (3.5-5.0) g/dL COVID-19 (KERON) (Negative) COVID-19 Clin Com Influenza Type A (LARRY) (Negative) Influenza Type B (LARRY) (Negative) Influenza A & B Note <CRIS Cowart - Last Filed: 05/03/22 16:41> Discharge Plan Discharge Clinical Impression: Bronchitis <Gemma Soto CNP - Last Filed: 04/15/22 11:30> Patient Disposition: Home, Self-Care <Gemma Soto CNP - Last Filed: 04/15/22 11:30> Additional Instructions: no pneumonia was seen on chest x-ray Negative testing for flu and COVID We wrote antibiotic for bronchitis No sign of heart attack or worsening heart failure today Return to the ER any time difficulty breathing any worse condition or any concerns follow with primary doctor later this week for recheck <Gemma Soto CNP - Last Filed: 04/15/22 11:30> Prescriptions: New doxycycline monohydrate 100 mg capsule 100 mg PO BID Qty: 14 0RF No Action atorvastatin 80 mg tablet 80 mg PO BEDTIME citalopram 10 mg tablet 10 mg PO DAILY mirtazapine 7.5 mg tablet 7.5 mg PO DAILY Eliquis 5 mg tablet 5 mg PO BID Entresto 49-51 mg Tablet 1 tab PO BID Qty: 30 0RF Protocol: Hold for SBP< HOLD for SBP < : 90 levetiracetam 500 mg Tablet 500 mg PO BID 30 Days Qty: 60 0RF acetaminophen 500 mg capsule 500 mg PO Q6H PRN (Reason: fever or pain) Qty: 20 0RF famotidine 20 mg Tablet 20 mg PO DAILY cholecalciferol (vitamin D3) 25 mcg (1,000 unit) Tablet 25 mcg PO DAILY carvedilol 12.5 mg Tablet 12.5 mg PO BID Qty: 60 0RF Protocol: Hold for SBP/HR < HOLD for SBP < : 90 HOLD for HR < : 60 spironolactone 25 mg tablet 25 mg PO DAILY Qty: 30 0RF aspirin 81 mg capsule 81 mg PO Q48H Qty: 30 0RF bumetanide 1 mg tablet 1 mg PO DAILY Qty: 30 0RF ondansetron 4 mg tablet,disintegrating 4 mg PO Q6-8H PRN (Reason: nausea and vomiting) Qty: 14 0RF amiodarone 200 mg tablet 200 mg PO DAILY <Gemma Soto CNP - Last Filed: 04/15/22 11:30> Interventions: ED Discharge Assessment Last Done: 04/15/22 18:46 <Gemma Soto CNP - Last Filed: 04/15/22 11:30> Discharge Date/Time: 04/15/22 18:46 <Gemma Soto CNP - Last Filed: 04/15/22 11:30>
[2022-04-15 11:20] VITALS: BP 138/70; PULSE 50; RESP 18; TEMP 37; O2SAT 97; BMI 27.9
--- NOTE | 2022-04-15 11:25 | ECG_ITS ---
Test Reason : bradycardia Blood Pressure : / mmHG Vent. Rate : 067 BPM Atrial Rate : 053 BPM P-R Int : 210 ms QRS Dur : 144 ms QT Int : 456 ms P-R-T Axes : 056 -20 121 degrees QTc Int : 481 ms Sinus bradycardia with 1st degree A-V block with occasional Premature ventricular complexes Left bundle branch block Abnormal ECG When compared with ECG of 08-MAR-2022 12:18, Premature ventricular complexes are now Present Referred By: Gemma Soto Electronically Signed By:Ovidio Bobo
[2022-04-15 12:08] LABS: MANUAL DIFF FLAG NO
[2022-04-15 12:09] LABS: Basophils Percent Auto 0.7 % (0-2); Eosinophils Absolute Auto 0.5 X10*3/uL (0.0-0.4); Eosinophils Percent Auto 8.3 % (0-4); Hematocrit 42.8 % (42.0-52.0); Hemoglobin 14.2 g/dl (14.0-18.0); Imm Gran Abs Auto 0.01 X10*3/uL (0.00-0.03); Imm Gran Pct Auto 0.2 % (0.0-0.4); Lymphocytes Absolute Auto 1.6 X10*3/uL (1.2-4.9); Mean Corpuscular HGB Conc 33.2 g/dl (31.0-36.0); Mean Corpuscular Hemoglobin 31.1 pg (27.0-33.0); Mean Corpuscular Volume 93.7 fL (80.0-98.0); Mean Platelet Volume 10.8 fL (9.4-12.4); Monocytes Absolute Auto 0.5 X10*3/uL (0.1-1.2); Monocytes Percent Auto 8.8 % (2-11); Neutrophils Absolute Auto 3.4 x10*3/uL (2.0-8.3); Platelet Count 218 X10*3/uL (160-400); Red Blood Count 4.57 X10*6/uL (4.60-5.80); Red Cell Distribution Width 12.6 % (11.0-16.0)
[2022-04-15 12:29] LABS: IDNOW Serial# 9DB6401D; Influenza A Negative (Negative); Influenza B2 Negative (Negative)
[2022-04-15 12:32] LABS: COVID-19 Test Negative (Negative); IDNOW Serial# 55D5AD1C
[2022-04-15 12:50] LABS: B Type Natriuretic Peptide 316 pg/mL (<100)
[2022-04-15 12:52] LABS: Alanine Aminotransferase 19 U/L (0-40); Albumin Level 3.7 g/dL (3.5-5.0); Alkaline Phosphatase 102 U/L (39-117); Anion Gap 11 (12-20); Aspartate Amino Transferase 16 U/L (5-37); Bilirubin Total 0.7 mg/dL (0.0-1.0); Blood Urea Nitrogen 25 mg/dL (9-16); Calcium 8.8 mg/dL (8.4-10.2); Carbon Dioxide 27 mmol/L (22-29); Chloride 110 mmol/L (96-108); Estimated Glomerular Filt Rate 47; Glucose Random 107 mg/dL (60-115); Magnesium 1.9 mg/dL (1.6-2.6); Potassium 3.7 mmol/L (3.3-5.1); Sodium 144 mmol/L (135-145); Total Protein 6.3 g/dL (6.5-8.0)
[2022-04-15 14:04] LABS: Troponin-I High Sensitivity 12.4 ng/L (<3.5-35.0)
[2022-04-15 17:46] LABS: Troponin-I High Sensitivity 14.5 ng/L (<3.5-35.0)
--- NOTE | 2022-04-15 17:53 | ECG_ITS ---
Test Reason : REPEAT EKG Blood Pressure : / mmHG Vent. Rate : 057 BPM Atrial Rate : 057 BPM P-R Int : 198 ms QRS Dur : 138 ms QT Int : 488 ms P-R-T Axes : 077 -26 111 degrees QTc Int : 474 ms Sinus bradycardia Non-specific intra-ventricular conduction block Minimal voltage criteria for LVH, may be normal variant ( Jett product ) T wave abnormality, consider lateral ischemia Abnormal ECG When compared with ECG of 15-APR-2022 12:30, Premature ventricular complexes are no longer Present Referred By: Terry Bauer Electronically Signed By:Ovidio Bobo
[2022-04-15] MEDS: Doxycycline Monohydrate 100 MG CAPSULE PO (18:46)
== END 2022-04-15 18:46 | disposition home or self-care (01) ==
PROVIDERS: Nurse Practitioner Family; Physician Assistant Medical; Emergency Provider Emergency Medicine; PCP Internal Medicine
DX: J42 Unspecified chronic bronchitis (principal); R05.9 Cough, unspecified; R06.02 Shortness of breath; Z20.822 Contact with and (suspected) exposure to COVID-19; Z79.899 Other long term (current) drug therapy
CPT/HCPCS: 36415; 71046; 80053; 83735; 83880; 84484; 85025; 87502; 87635; 93005; 99283

== ENCOUNTER 2022-06-14 10:28 | Outpatient (REF) | payer OTHER, SELFPAY ==
--- NOTE | 2022-06-14 13:11 | PFT_ITS ---
INDICATION: Therapeutic drug monitoring. SPIROMETRY: FEV1 to FVC of 83% with an FEV1 of 2.5 L, which is 83% of predicted and an FVC of 3 L, which is 76% of predicted. No significant response to bronchodilators noted. Maximum voluntary ventilation only 42% predicted. LUNG VOLUMES: Total lung capacity of 73% predicted. DIFFUSION CAPACITY: DLCO of 60% predicted. COMPARISONS: None. INTERPRETATION: No obstructive ventilatory defects. No significant response to bronchodilators noted. The patient, however, has a severe decrease in maximum voluntary ventilation secondary to likely deconditioning. Although cannot rule out neuromuscular conditions. The patient also has a restrictive ventilatory defect consistent with mild restrictive lung disease of unclear etiology. Parenchymal lung conditions need to be considered. The patient also has a moderate diffusion impairment, which is corresponding to the above. It does correct when corrected for the alveolar volume suggesting a component of hypo expansion of the lung. Clinical correlation warranted. MD TA Delgado/MODL / [id number]
== END 2022-06-14 10:29 | disposition home or self-care (01) ==
LOC: HO.RESP 10:28
PROVIDERS: Visit Provider Internal Medicine Cardiovascular Disease
DX: Z79.899 Other long term (current) drug therapy (principal)
CPT/HCPCS: 94060; 94727; 94729

== ENCOUNTER 2022-06-19 09:00 | Outpatient (REF) | payer MEDICAID, SELFPAY ==
[2022-06-19 10:34] LABS: Alanine Aminotransferase 22 U/L (0-40); Albumin Level 3.9 g/dL (3.5-5.0); Alkaline Phosphatase 90 U/L (39-117); Aspartate Amino Transferase 18 U/L (5-37); Bilirubin Direct 0.2 mg/dL (0.0-0.5); Bilirubin Total 0.7 mg/dL (0.0-1.0); Total Protein 6.2 g/dL (6.5-8.0)
[2022-06-19 11:34] LABS: Free T4 (Free Thyroxine) 0.95 ng/dL (0.71-1.85)
== END 2022-06-19 09:01 | disposition home or self-care (01) ==
LOC: HO.LAB 09:00
PROVIDERS: PCP Internal Medicine; Visit Provider Internal Medicine Cardiovascular Disease
DX: Z51.81 Encounter for therapeutic drug level monitoring (principal)
CPT/HCPCS: 36415; 80076; 84439; 84443

== ENCOUNTER → 2022-07-30 13:59 | Outpatient (BNVA) | payer MEDICAID, SELFPAY | PROVIDERS: PCP Internal Medicine; Referring Provider Internal Medicine; Visit Provider Nurse Practitioner Family | DX: Z45.02 Encounter for adjustment and management of automatic implantable cardiac defibrillator (principal); I48.19 Other persistent atrial fibrillation; I42.8 Other cardiomyopathies; I50.9 Heart failure, unspecified; Z86.73 Personal history of transient ischemic attack (TIA), and cerebral infarction without residual deficits | CPT/HCPCS: 93005; 99212 ==

== ENCOUNTER → 2022-10-16 09:53 | Outpatient (BNVA) | payer OTHER, SELFPAY | PROVIDERS: PCP Internal Medicine; Visit Provider Internal Medicine | DX: J98.4 Other disorders of lung (principal) | CPT/HCPCS: 99202 ==

== ENCOUNTER 2022-10-27 20:19 | Emergency (ER) | payer MEDICAID, SELFPAY ==
[2022-10-27 20:23] VITALS: BP 170/90; PULSE 66; O2SAT 95
[2022-10-27 20:30] VITALS: BP 161/77; PULSE 60; RESP 22; O2SAT 95; BMI 33.3
[2022-10-27 20:42] VITALS: BP 161/77; PULSE 60; RESP 22; TEMP 37.2; O2SAT 95
--- NOTE | 2022-10-27 20:43 | PC.NURSE ---
Pt presents to ER via EMS after a witnessed seizure. Pt has had seizures in the past. witnessed him convulsing and being minimally responsive. Pt was responsive for EMS and was able to transfer to [facility]. Pt is awake and alert but unable to tell me his name or who he is. Pt is [place] Sor[place] Speaking only. His is on his way here. Skin is warm and dry. Pt is resting in bed at this time, EKG has been obtained. Pt will be lined and labbed, waiting to be seen by provider at this time.
--- NOTE | 2022-10-27 20:46 | MHC.EDTECH ---
PATIENT CAME IN VIA EMS ,EKG TAKEN AND WAS READ BY PROVIDER ,SEIZURE PADS IN PLACE ,PATIENT ,pt was change INTO HOSPITAL ATTIRE ,CALL YEUNG WITHIN REACH .
--- NOTE | 2022-10-27 21:13 | PC.NURSE ---
TERRANCE Hays placed a 20g IV in the left hand. Labs have been sent.
[2022-10-27 21:39] VITALS: BP 158/84; PULSE 75; RESP 16; TEMP 37.2; O2SAT 98
[2022-10-27 21:48] LABS: Alanine Aminotransferase 17 U/L (0-40); Albumin Level 3.8 g/dL (3.5-5.0); Alkaline Phosphatase 95 U/L (39-117); Anion Gap 15 (12-20); Aspartate Amino Transferase 17 U/L (5-37); Bilirubin Total 0.6 mg/dL (0.0-1.0); Blood Urea Nitrogen 28 mg/dL (9-16); Carbon Dioxide 25 mmol/L (22-29); Chloride 109 mmol/L (96-108); Creatinine Clr Calc Pharmacy 49.7; Estimated Glomerular Filt Rate 39; Glucose Random 84 mg/dL (60-115); Potassium 4.4 mmol/L (3.3-5.1); Sodium 145 mmol/L (135-145); Total Protein 6.9 g/dL (6.5-8.0)
--- NOTE | 2022-10-27 22:02 | PC.NURSE ---
Spoke with pt's who reported pt had another seizure earlier today in a parking lot of [employer]. Pt was shaking, srooling, with eyes rolling into the back of his head.
--- NOTE | 2022-10-27 22:26 | MHC.EDTECH ---
PATIENT BLOOD SUGAR CHECK ,TERRANCE SALDANA AWARE OF RESULT OF 94 ,URINE SAMPLE COLLECTED AND SENT TO LAB ,PATIENT VOID 450 ML IN URINAL ,PATIENT WAS BOOSTED UP IN BED ,PATIENT AT BEDSIDE .
[2022-10-28] VITALS: BP 150/71; PULSE 50; RESP 16; TEMP 36.8; O2SAT 98
--- NOTE | 2022-10-28 00:01 | MHC.EDTECH ---
0000 rounding done ,vitals sign taken patient sleeping ,pt at bedside .
--- NOTE | 2022-10-28 00:06 | ED.SEIZURE ---
HPI - Seizure General Chief Complaint: Seizure Stated Complaint: Multiple seizures Time Seen by Provider: 10/27/22 22:42 Source: patient and family Mode of arrival: EMS Limitations: other (Postictal) History of Present Illness HPI Narrative: Patient comes to the emergency room complaining of a seizure at home. Patient does not remember the seizure. Patient's is at bedside who is given the history. Patient does have history of seizure disorder, takes Keppra, he is complaint with his medications. Patient takes 500 mg b.i.d.. Patient's states that since patient had a CVA, he has had no seizures. At this time, patient states that he feels well, a bit tired. Patient denies biting his tongue or urinary/fecal incontinence. Patient denies chest pain or shortness of breath. Seizure History: Yes Place: Home Related Data Home Medications Medication Instructions Recorded Confirmed apixaban 5 mg tablet (Eliquis) 5 mg PO BID 07/02/21 07/30/22 atorvastatin 80 mg tablet 80 mg PO BEDTIME 07/02/21 07/30/22 citalopram 10 mg tablet 10 mg PO DAILY 07/02/21 07/30/22 mirtazapine 7.5 mg tablet 7.5 mg PO DAILY 07/02/21 07/30/22 cholecalciferol (vitamin D3) 25 25 mcg PO DAILY 01/28/22 07/30/22 mcg (1,000 unit) tablet famotidine 20 mg tablet 20 mg PO DAILY 01/28/22 07/30/22 amiodarone 200 mg tablet 200 mg PO DAILY 04/04/22 07/30/22 Previous Rx's Medication Instructions Recorded levetiracetam 500 mg tablet 500 mg PO BID 30 days #60 tabs 07/09/21 sacubitril 49 mg-valsartan 51 mg 1 tab PO BID #30 tabs 07/09/21 tablet (Entresto) acetaminophen 500 mg capsule 500 mg PO Q6H PRN fever or pain 01/15/22 #20 caps aspirin 81 mg capsule 81 mg PO Q48H #30 caps 01/30/22 bumetanide 1 mg tablet 1 mg PO DAILY #30 tabs 01/30/22 carvedilol 12.5 mg tablet 12.5 mg PO BID #60 tabs 01/30/22 spironolactone 25 mg tablet 25 mg PO DAILY #30 tabs 01/30/22 ondansetron 4 mg disintegrating 4 mg PO Q6-8H PRN nausea and 02/08/22 tablet vomiting #14 tabs levetiracetam 1,000 mg tablet 1,000 mg PO BID #60 tabs 10/28/22 (Keppra) Allergies Allergy/AdvReac Type Severity Reaction Status Date / Time No Known Allergies Allergy Verified 10/16/22 10:17 [No Known Allergies*] Review of Systems Review of Systems: Constitutional : No Weight loss, No Fever, No Chills, No Night Sweats, No Fatigue, No Malaise ENT/Mouth : No Hearing loss, No Ear Pain, No Nasal Congestion, No Sinus Pain, No Hoarseness, No sore throat, No Rhinorrhea, No Swallowing Difficulty Eyes: No Eye Pain, No Swelling, No Redness, No Foreign Body, No Discharge, No Vision Changes Cardiovascular : No Chest Pain, No SOB, No Dyspnea on Exertion, No Orthopnea, No Edema, No Palpitations Respiratory : No Cough, No Sputum, No Wheezing, No Smoke Exposure, No Dyspnea Gastrointestinal : No Nausea, No Vomiting, No Diarrhea, No Constipation, No abdominal Pain, No Hematochezia, No Melena Genitourinary : no irregular bleeding, No Dysuria, No Urinary Frequency, No Hematuria, No Urinary Incontinence, No Urgency, No Flank Pain, No Urinary Flow Changes, No Hesitancy Musculoskeletal : No joint pain, No Myalgias, No Joint Swelling Skin : No Skin Lesions, No rash Neuro : Patient had a seizure earlier today, No Weakness, No Numbness, No Paresthesias, No Loss of Consciousness, No Dizziness, No Headache Psych : No Anxiety/Panic, No Depression, No SI/HI/AH/VH, No Social Issues, Heme/Lymph: No Bruising, No Bleeding,No Lymphadenopathy Endocrine : No Polyuria, No Polydipsia, No Temperature Intolerance PMFSH Past Medical History Medical History Acute decompensated heart failure Atrial fibrillation with rapid ventricular response Cardiac defibrillator in place Cerebrovascular accident CHF (congestive heart failure) Chronic systolic heart failure CKD (chronic kidney disease), stage II CVA (cerebral vascular accident) Embolism of kidney Gallstones Hypertension NICM (nonischemic cardiomyopathy) NSVT (nonsustained ventricular tachycardia) Persistent atrial fibrillation Renal infarct Restrictive lung disease Uncontrolled hypertension Surgical History (Updated 07/30/22 @ 17:16 by KARON Romero) History of cardiac defibrillator placement Family History Family History Other CAD (coronary artery disease) Social History Social History Household Members: Unknown / Unable to assess Housing: Unknown / Unable to assess Do you presently have visiting nurse or other home services: No Unable to assess alcohol history related to: Unknown Alcohol intake: never Patient Tobacco Use Status: Never used Tobacco Smoked in Last 30 Days: No Use of substances other than those prescribed or required for medical reasons: No Advance Directives: Yes Advance Directives on File: Yes Advance Directives Date on File: 10/18/20 service: Yes Current occupational status: employed Physical Exam Vital Signs: Vital Signs: Last Vital Signs Temp 98.2 F 10/28/22 00:00 Pulse 50 10/28/22 00:00 Resp 16 10/28/22 00:00 BP 150/71 H 10/28/22 00:00 Pulse Ox 98 10/28/22 00:00 O2 Del Method Room Air 10/28/22 00:00 BMI result Body Mass Index 33.3 Const: Other: Appearance: Alert. Oriented X3. No acute distress. Somnolent, easily arousable, still seems slightly postictal Eyes: Pupils equal, round and reactive to light. ENT: Pharynx normal. Neck: Normal inspection. Neck supple. No lymph nodes noted. No crepitus CVS: Normal heart rate and rhythm. Pulses normal. Normal S1 and S2 Respiratory: No respiratory distress. Breath sounds normal. No Wheezing. No rales Abdomen: Soft and nontender. No rigidity. No distention. Skin: Skin warm and dry. Normal skin color. Normal skin turgor. Extremities: No lower extremity edema. No Lacerations. No Rash Neuro: Oriented X 3. No motor deficit. No sensory deficit. Moving all extremities. No slurred speech. CN 2 through 12 grossly intact Psych: calm, cooperative, normal affect Medical Decision Making Medical Decision Making MDM Narrative: -patient postictal, history of seizure, considering admission to the hospital -I spoke with the patient's who is now at bedside. Patient has seizure in his bed, did not fall. Patient is on Eliquis but did not sustain any head injury -I reviewed the patient's labs, patient's creatinine is 1.77 which is chronic. Patient's white blood cell count within normal limits. Urinalysis negative for UTI -patient being given IV Keppra at this time. Loading dose of 1500 mg IV -we will increase patient's Keppra to 1000 mg twice a day and have him follow-up with his primary care physician. Differential Diagnosis Differential Diagnoses: The differential diagnosis associated with the presentation includes (Seizure, pseudo-seizure) Admission/Observation Consideration of admission/observation: Escalation of care including admission/observation considered Lab Data MDM Lab Attestation statement: I reviewed the patient's lab results. 10/27/22 21:12 10/27/22 21:12 Labs: Lab Results 10/27/22 10/27/22 10/27/22 Range/Units 21:12 21:12 22:23 WBC 5.4 (4.8-10.8) X10*3/uL RBC 4.31 L (4.60-5.80) X10*6/uL Hgb 13.5 L (14.0-18.0) g/dl Hct 39.9 L (42.0-52.0) % MCV 92.6 (80.0-98.0) fL MCH 31.3 (27.0-33.0) pg MCHC 33.8 (31.0-36.0) g/dl RDW 12.5 (11.0-16.0) % Plt Count 258 (160-400) X10*3/uL MPV 9.9 (9.4-12.4) fL Immature Gran % (Auto) 0.4 (0.0-0.4) % Neut % (Auto) 49.8 (45-73) % Lymph % (Auto) 32.1 (20-40) % [place] % (Auto) 12.2 H (2-11) % Eos % (Auto) 4.8 H (0-4) % Baso % (Auto) 0.7 (0-2) % Lymph # (Auto) 1.7 (1.2-4.9) X10*3/uL [place] # (Auto) 0.7 (0.1-1.2) X10*3/uL Eos # (Auto) 0.3 (0.0-0.4) X10*3/uL Baso # (Auto) 0.0 (0.0-0.2) X10*3/uL Abs Immat Gran (auto) 0.02 (0.00-0.03) X10*3/uL Absolute Neuts (auto) 2.7 (2.0-8.3) x10*3/uL Absolute Nucleated RBC 0.000 (0.0-0.012) X10*3/uL Nucleated RBC % (auto) 0.0 (0.0-0.2) /100WBC Sodium 145 (135-145) mmol/L Potassium 4.4 (3.3-5.1) mmol/L Chloride 109 H (96-108) mmol/L Carbon Dioxide 25 (22-29) mmol/L Anion Gap 15 (12-20) BUN 28 H (9-16) mg/dL Creatinine 1.77 H (0.5-1.4) mg/dL Estim Creat Clear Calc 49.7 Estimated GFR 39 POC Glucose 94 (60-115) mg/dL Random Glucose 84 (60-115) mg/dL Calcium 9.0 (8.4-10.2) mg/dL Total Bilirubin 0.6 (0.0-1.0) mg/dL AST 17 (5-37) U/L ALT 17 (0-40) U/L Alkaline Phosphatase 95 (39-117) U/L Total Protein 6.9 (6.5-8.0) g/dL Albumin 3.8 (3.5-5.0) g/dL Urine Color Urine Appearance Urine pH (5.0-9.0) Ur Specific [place] (1.005-1.025) Urine Protein (Neg-Trace) mg/dL Urine Glucose (UA) (Negative) mg/dL Urine Ketones (Negative) mg/dL Urine Blood (Negative) Urine Nitrite (Negative) Ur Leukocyte Esterase (Negative) Urine RBC (0-2) /HPF Urine WBC (0-5) /HPF Ur Squamous Epith Cells (0-2) /HPF Urine Bacteria (None Seen) Hyaline Casts (0-2) /LPF 10/27/22 Range/Units 22:25 WBC (4.8-10.8) X10*3/uL RBC (4.60-5.80) X10*6/uL Hgb (14.0-18.0) g/dl Hct (42.0-52.0) % MCV (80.0-98.0) fL MCH (27.0-33.0) pg MCHC (31.0-36.0) g/dl RDW (11.0-16.0) % Plt Count (160-400) X10*3/uL MPV (9.4-12.4) fL Immature Gran % (Auto) (0.0-0.4) % Neut % (Auto) (45-73) % Lymph % (Auto) (20-40) % [place] % (Auto) (2-11) % Eos % (Auto) (0-4) % Baso % (Auto) (0-2) % Lymph # (Auto) (1.2-4.9) X10*3/uL [place] # (Auto) (0.1-1.2) X10*3/uL Eos # (Auto) (0.0-0.4) X10*3/uL Baso # (Auto) (0.0-0.2) X10*3/uL Abs Immat Gran (auto) (0.00-0.03) X10*3/uL Absolute Neuts (auto) (2.0-8.3) x10*3/uL Absolute Nucleated RBC (0.0-0.012) X10*3/uL Nucleated RBC % (auto) (0.0-0.2) /100WBC Sodium (135-145) mmol/L Potassium (3.3-5.1) mmol/L Chloride (96-108) mmol/L Carbon Dioxide (22-29) mmol/L Anion Gap (12-20) BUN (9-16) mg/dL Creatinine (0.5-1.4) mg/dL Estim Creat Clear Calc Estimated GFR POC Glucose (60-115) mg/dL Random Glucose (60-115) mg/dL Calcium (8.4-10.2) mg/dL Total Bilirubin (0.0-1.0) mg/dL AST (5-37) U/L ALT (0-40) U/L Alkaline Phosphatase (39-117) U/L Total Protein (6.5-8.0) g/dL Albumin (3.5-5.0) g/dL Urine Color Yellow Urine Appearance Clear Urine pH 7.0 (5.0-9.0) Ur Specific [place] 1.015 (1.005-1.025) Urine Protein 30 (1+) H (Neg-Trace) mg/dL Urine Glucose (UA) Negative (Negative) mg/dL Urine Ketones Negative (Negative) mg/dL Urine Blood Negative (Negative) Urine Nitrite Negative (Negative) Ur Leukocyte Esterase Negative (Negative) Urine RBC 0-2 (0-2) /HPF Urine WBC 0-5 (0-5) /HPF Ur Squamous Epith Cells 0-2 (0-2) /HPF Urine Bacteria None Seen (None Seen) Hyaline Casts 0-2 (0-2) /LPF Chronic Conditions Patient?s care impacted by: Other (Seizure disorder) Discharge Plan Discharge Clinical Impression: Seizure Patient Disposition: Home, Self-Care Instructions: Epilepsy (ED) Additional Instructions: Please follow-up with your primary care physician tomorrow. If you have any worsening or new symptoms, please return to the emergency room or call 911 Prescriptions: New levetiracetam [Keppra] 1,000 mg tablet 1,000 mg PO BID Qty: 60 0RF No Action atorvastatin 80 mg tablet 80 mg PO BEDTIME citalopram 10 mg tablet 10 mg PO DAILY mirtazapine 7.5 mg tablet 7.5 mg PO DAILY Eliquis 5 mg tablet 5 mg PO BID Entresto 49-51 mg Tablet 1 tab PO BID Qty: 30 0RF Protocol: Hold for SBP< HOLD for SBP < : 90 levetiracetam 500 mg Tablet 500 mg PO BID 30 Days Qty: 60 0RF acetaminophen 500 mg capsule 500 mg PO Q6H PRN (Reason: fever or pain) Qty: 20 0RF famotidine 20 mg Tablet 20 mg PO DAILY cholecalciferol (vitamin D3) 25 mcg (1,000 unit) Tablet 25 mcg PO DAILY carvedilol 12.5 mg Tablet 12.5 mg PO BID Qty: 60 0RF Protocol: Hold for SBP/HR < HOLD for SBP < : 90 HOLD for HR < : 60 spironolactone 25 mg tablet 25 mg PO DAILY Qty: 30 0RF aspirin 81 mg capsule 81 mg PO Q48H Qty: 30 0RF bumetanide 1 mg tablet 1 mg PO DAILY Qty: 30 0RF ondansetron 4 mg tablet,disintegrating 4 mg PO Q6-8H PRN (Reason: nausea and vomiting) Qty: 14 0RF amiodarone 200 mg tablet 200 mg PO DAILY Referrals: Court Fernando MD [Physician] - 10/30/22
== END 2022-10-28 01:28 | disposition home or self-care (01) ==
PROVIDERS: Emergency Provider Emergency Medicine; PCP Internal Medicine
DX: R56.9 Unspecified convulsions (principal); I11.0 Hypertensive heart disease with heart failure; I50.22 Chronic systolic (congestive) heart failure; I48.91 Unspecified atrial fibrillation; Z79.01 Long term (current) use of anticoagulants; Z79.899 Other long term (current) drug therapy; Z86.73 Personal history of transient ischemic attack (TIA), and cerebral infarction without residual deficits; Z95.810 Presence of automatic (implantable) cardiac defibrillator
CPT/HCPCS: 36415; 80053; 81001; 82947; 85025; 93005; 96365; 99284; 99285; J1953

== ENCOUNTER 2022-11-04 10:50 | Outpatient (AMB) | payer MEDICAID, SELFPAY ==
--- NOTE | 2022-11-04 11:15 | MHC.OFFVIS ---
Intake Vital Signs 11/04/22 11:16 Height 5 ft 9 in Weight 220 lb 7.396 oz BMI 32.6 BP 142/84 H Blood Pressure Location Lt brachial Position Sitting Pulse 55 Intake Visit Reasons: 3 mth f/up s/p echo per dc Intake Note: 3 month follow-up per Leslie echo was r/s till tomorrow just had ekg feeling good Ldr Rn Required: Yes Ldr Rn Name: Ameena limon Bridge Design Engineer: Bridge Design Engineer Present Accompanied by: Grand Child Allergies No Known Allergies [No Known Allergies*] Allergy (Verified 10/16/22 10:17) Medication List - Last Reconciled 11/04/22 by Ovidio Bobo MD acetaminophen 500 mg PO Q6H PRN amiodarone 200 mg PO DAILY apixaban (Eliquis) 5 mg PO BID aspirin 81 mg PO Q48H atorvastatin 80 mg PO BEDTIME bumetanide 1 mg PO DAILY carvedilol 12.5 mg See Protocol PO BID cholecalciferol (vitamin D3) 25 mcg PO DAILY citalopram 10 mg PO DAILY famotidine 20 mg PO DAILY levetiracetam 500 mg PO BID 30 days levetiracetam (Keppra) 1,000 mg PO BID mirtazapine 7.5 mg PO DAILY ondansetron 4 mg PO Q6-8H PRN sacubitril-valsartan 49-51 mg (Entresto) 1 tab See Protocol PO BID spironolactone 25 mg PO DAILY HPI HPI Comments History of Present Illness Details 62-year-old gentleman with nonischemic cardiomyopathy. This was thought to be secondary to elevated blood pressure in the past. He also developed atrial fibrillation and unfortunately had a CVA. he has recovered significantly from to CVA. We had discussion about cardioversion and underwent successful cardioversion in February 2022. He was maintained on amiodarone and apixaban for atrial fibrillation. He has been in sinus rhythm since then. He is noticed to be bradycardic at home in the 50s to 60s. He is on carvedilol and amiodarone currently. Amiodarone has been cut back to 200 mg once a day. 11/04/22: He returns for follow-up. He has been walking with cane outside and inside the house he has been walking independently. This is significant improvement in his functional status after the stroke. Blood pressure continues to be elevated. His heart rates are in 50s. No chest discomfort or shortness of breath. He recently had seizures and was started on Keppra. He is due to see Neurology in follow-up. [facility] Medical History Acute decompensated heart failure Atrial fibrillation with rapid ventricular response Cardiac defibrillator in place Cerebrovascular accident CHF (congestive heart failure) Chronic systolic heart failure CKD (chronic kidney disease), stage II CVA (cerebral vascular accident) Embolism of kidney Gallstones Hypertension NICM (nonischemic cardiomyopathy) NSVT (nonsustained ventricular tachycardia) Persistent atrial fibrillation Renal infarct Restrictive lung disease Uncontrolled hypertension Surgical History (Updated 07/30/22 @ 17:16 by KARON Romero) History of cardiac defibrillator placement Family History Other CAD (coronary artery disease) Social History Household Members: Unknown / Unable to assess Housing: Unknown / Unable to assess Do you presently have visiting nurse or other home services: No Unable to assess alcohol history related to: Unknown Alcohol intake: never Patient Tobacco Use Status: Never used Tobacco Advance Directives Date on File: 10/18/20 service: Yes Current occupational status: employed Review of Systems Const Denies chills, Denies fatigue, Denies fever(s), Denies frequent falls, Denies weakness, Denies weight gain and Denies weight loss ENT Denies dizziness Card Denies chest pain, Denies leg edema, Denies lightheadedness, Denies palpitations, Denies dyspnea, Denies dyspnea on exertion, Denies orthopnea and Denies other (loss of consciousness) Resp Denies cough, Denies dyspnea and Denies dyspnea on exertion GI Denies hematochezia and Denies change in stool character Musc Denies abnormal gait, Denies muscle weakness, Denies numbness, Denies radiating pain into limb and Denies tingling Neuro Denies abnormal gait, Denies dizziness, Denies frequent falls, Denies numbness, Denies tingling and Denies weakness Endo Denies fatigue and Denies palpitations Physical Exam Vital Signs: Last Vital Signs Pulse 55 11/04/22 11:16 BP 142/84 H 11/04/22 11:16 BMI result Body Mass Index 32.6 GENERAL APPEARANCE: in no acute distress, pleasant. NECK: no carotid bruit, no jugular venous distention. SKIN: no suspicious lesions, warm and dry. HEART: no murmurs, regular rate and rhythm. Bradycardic. LUNGS: clear to auscultation bilaterally. ABDOMEN: soft, nontender. EXTREMITIES: no edema. PERIPHERAL PULSES: equal. Assessment & Plan Assessment & Plan (1) PAF (paroxysmal atrial fibrillation): Code(s): I48.0 - Paroxysmal atrial fibrillation (2) Chronic heart failure: Code(s): I50.9 - Heart failure, unspecified Qualifiers: Heart failure type: combined systolic and diastolic Qualified Code(s): I50.42 - Chronic combined systolic (congestive) and diastolic (congestive) heart failure (3) NICM (nonischemic cardiomyopathy): Comment: Cardiac cath 08/14/16 showed only minimal luminal irregularities in RCA, nondominant vessel Code(s): I42.8 - Other cardiomyopathies Plan Pleasant 62-year-old gentleman with background of paroxysmal atrial fibrillation and chronic heart failure. He had cardiomyopathy which was nonischemic and has been on multiple medications for blood pressure control. He had a CVA and has recovered quite well at this point and walks independently inside the house and uses a cane outside the house. He is on amiodarone and carvedilol and is bradycardic. His blood pressure is elevated. Would not titrate the carvedilol further. His Entresto can be titrated to maximum dose and I am increasing it to 97-103 mg b.i.d.. If blood pressure continues to be elevated then we will add amlodipine to his regimen. He is due to get repeat echocardiography and will see if there is any changes in his ejection fraction. He has maintained sinus rhythm with amiodarone at this point. He should have TSH, LFTs and lung assessment every 4-6 months. He will see us back in few months. Thank you for allowing me to participate in the care of your patient. Please feel free to contact me if you have any questions. Medications: New sacubitril-valsartan 97-103 mg 1 tab PO BID 100 tabs 3RF Coding Level of Care Code Est Pt Level 4 (94548) Diagnoses PAF (paroxysmal atrial fibrillation) I48.0 Chronic heart failure I50.42 Heart failure type: combined systolic and diastolic NICM (nonischemic cardiomyopathy) I42.8
[2022-11-04 11:16] VITALS: BP 142/84; PULSE 55; BMI 32.6
== END 2022-11-04 11:40 | disposition home or self-care (01) ==
PROVIDERS: Visit Provider Internal Medicine Cardiovascular Disease
DX: I48.0 Paroxysmal atrial fibrillation (principal); I50.42 Chronic combined systolic (congestive) and diastolic (congestive) heart failure; I42.8 Other cardiomyopathies
CPT/HCPCS: 99214

== ENCOUNTER → 2022-11-04 10:50 | Outpatient (BNVA) | payer MEDICAID, SELFPAY | PROVIDERS: Visit Provider Internal Medicine Cardiovascular Disease | DX: I50.42 Chronic combined systolic (congestive) and diastolic (congestive) heart failure (principal); I42.8 Other cardiomyopathies; I48.0 Paroxysmal atrial fibrillation; Z98.890 Other specified postprocedural states; I11.0 Hypertensive heart disease with heart failure | CPT/HCPCS: 99212 ==

== ENCOUNTER → 2022-11-05 12:42 | Outpatient (REF) | payer OTHER, SELFPAY ==
--- NOTE | 2022-11-05 12:45 | CA_ITS ---
Transthoracic Echocardiogram Patient (Last, First, Middle): Donny Costa Luis Gender: Male Date of : 1960 Age: 62 Procedure Date: 11/05/2022 Procedure Type: Transthoracic Echocardiogram Location: OP Height: 167.64 cm Weight: 95.26 kg BSA: 2.04 m2 Heart Rate: bpm BP: 124 / 80 mmHg Bench Shear Operator: ROSARIO Referring MD: Leslie Nicholas SHIPWRIGHT HELPER-C Steel Fabricator: Naeem Haque MD Symptoms: I50.9 - Heart failure, unspecified Study Quality: Adequate ECG Rhythm: Sinus Conclusions: - 1. Moderately dilated left ventricle with LVEF of 25-30% with elevated filling pressures 2. Moderately dilated left atrium 3. Mild aortic and mitral regurgitation 4. Normal RV systolic pressure 5. Mildly dilated ascending aorta at 4 cm 6. Moderate loculated pericardial effusion near the left ventricle Findings Procedure Information Contrast agent, definity, is being given per protocol without apparent complications. Left Ventricle Moderately increased left ventricular cavity size. There is moderately increased left ventricular wall thickness. The left ventricular systolic function is severely decreased. The visually estimated ejection fraction is between 25-30%. There is severe global hypokinesis. Spectral Doppler is indicative of an impaired relaxation filling pattern. Elevated filling pressures. E/E prime ratio is >15, consistent with elevated filling pressures. Right Ventricle Normal right ventricular cavity size and systolic function. Atria The left atrium is moderately dilated. Interatrial shunt cannot be excluded. The right atrium is likely dilated. Aortic Valve Normal aortic valve structure and function. There is no aortic valve stenosis. There is mild aortic valve regurgitation. Mitral Valve There is mild anterior and posterior mitral leaflet thickening. There is mild mitral valve regurgitation. There is no mitral valve stenosis. Pulmonic Valve The pulmonic valve is likely normal. There is mild pulmonic valve regurgitation. Tricuspid Valve Normal tricuspid valve structure. There is trace tricuspid valve regurgitation. The right ventricular systolic pressure is normal. The right ventricular systolic pressure is 14 mmHg. Normal right atrial pressure. There is no evidence of pulmonary hypertension. Great Vessels The pulmonary artery was not well visualized. There is mild dilatation of the ascending aorta measuring 4.00 cm. Venous The inferior vena cava is normal in size and collapses greater than 50% with inspiration. Pericardium/Pleural There is a moderate loculated pericardial effusion overlying the left ventricle. Prior Study Comparison Changes noted compared to prior study dated: 07/03/2021. LV systolic function is marginally improved Measurements 2D Linear Measurements IVSd: 1.49 0.6-0.9/0.6-1.0 cm LVIDd: 6.39 3.9-5.3/4.2-5.9 cm LVIDd Index: 3.13 2.4-3.2/2.2-3.1 cm/m2 LVIDs: 5.47 2.0-3.6 cm LVPWd: 1.41 0.7-1.1 cm Ao Root: 3.70 2.1-3.5 cm LA Diam: 4.70 2.7-3.8/3.0-4.0 cm LAIDs Index: 2.30 1.5-2.3 cm/m2 LV Mass: 562.48 67-162/88-224 g LV Mass Index: 275.73 43-95/49-115 g/m2 LVOT Diam: 2.30 3.0+(-)1.3 cm 2D Systolic Function EF 4C: 32.30 >55% EF 2C: 39.90 >55% Mitral Valve MV Pk E: 0.48 MV PK A: 0.56 MV Decel Time: 239.00 E/A: 0.90 E'Lateral: 3.05 E'Medial: 2.94 E/E' Med: 16.20 E/E' Lat: 15.60 PHT: 70.00 MVA PHT: 3.14 Decel [place]: 1.99 Aortic Valve AoV Pk Adán: 1.27 AoV Mn Adán: 0.69 AoV VTI: 0.26 AoV Pk Grad: 6.00 Aov Mn Grad: 3.00 DEISY Cont.VTI: 2.51 LVOT LVOT Pk Adán: 0.74 LVOT Mn Adán: 0.47 LVOT VTI: 0.16 LVOT Pk Grad: 2.00 LVOT Mn Grad: 1.00 LVOT Diam: 2.30 LVOT Area: 4.15 Diastolic Function MV Pk E: 0.48 MV Pk A: 0.56 E/A: 0.90 E'Medial: 2.94 E/E' Med: 16.20 E' Laterial: 3.05 E/E' Lat: 15.60 Right Ventricle TAPSE (mm): 22.00 Tricuspid Valve TR Pk Adán: 1.63 TR Pk Grad: 11.00 RA Press: 3.00 RVSP: 14.00 Great Vessels Aorta Ao Root-2D: 3.70 2.0-3.7 cm Ao Asc: 4.00 2.1-3.4 cm Pulmonary Valve PV Pk Adán: 0.86 Peak PV Grad: 3.00 Updated in Other Vendor System with Status of Final Naeem Haque MD electronically signed on 11/06/2022 2:45:15 PM with status of Final
== END ==
LOC: HO.CARD 12:42
PROVIDERS: PCP Internal Medicine; Visit Provider Nurse Practitioner Family
DX: I42.8 Other cardiomyopathies (principal); I50.9 Heart failure, unspecified
CPT/HCPCS: 93306; Q9957

== ENCOUNTER → 2022-11-05 12:45 | Outpatient (BNV) | payer MEDICAID, SELFPAY | PROVIDERS: PCP Internal Medicine; Visit Provider Internal Medicine Cardiovascular Disease | DX: I35.1 Nonrheumatic aortic (valve) insufficiency (principal); I34.0 Nonrheumatic mitral (valve) insufficiency | CPT/HCPCS: 93306 ==

== ENCOUNTER 2022-12-11 16:42 | Emergency (ER) | payer OTHER, SELFPAY ==
--- NOTE | ~2022-12-11 | CT_ITS ---
EXAMINATION: CT HEAD WITHOUT CONTRAST (STROKE PROTOCOL) CLINICAL INFORMATION: Stroke protocol. CVA on [place]. COMPARISON: None available. TECHNIQUE: Contiguous axial imaging was performed from the skull base to vertex without intravenous administration of contrast. This CT examination was performed using dose optimization techniques as appropriate, variously including the following: *Automated exposure control *Adjustment of mA and/or kV according to patient size (this includes techniques or standardized protocols for targeted exams where dose is matched to indication/reason for exam; i.e. extremities or head) *Use of iterative reconstruction technique DLP: 835 mGy-cm FINDINGS: There is a large left MCA territory old infarct, stable. There is no new acute infarction evolution. There is no intra-axial or extra-axial bleed. The lateral ventricles are symmetrical in size and configuration but enlarged. There is mild ipsilateral shift to the left. Mild periventricular hypodensity in both cerebral hemispheres seen without any mass effect. Bone windows reveal no calvarial abnormality. There is no scalp soft tissue abnormality. Bilateral paranasal sinuses and mastoid air cells are well-aerated. CT/CT head for stroke IMPRESSION: No acute intracranial process seen. There is old left frontoparietal temporal lobe infarct. Mild cerebral volume loss with chronic small vessel ischemic changes are stable as well. This critical result was discussed with Dr. Ornelas in the ER at 5:05 PM It was ascertained that the content and urgency of the report was understood at the time of direct communication.
--- NOTE | ~2022-12-11 | CT_ITS ---
EXAMINATION: CT CERVICAL SPINE WITHOUT CONTRAST CLINICAL INFORMATION: Fall. Trauma. COMPARISON: None available. TECHNIQUE: Contiguous axial non-contrast CT scan images of the cervical spine obtained. Sagittal and coronal reformatted images also obtained. This CT examination was performed using dose optimization techniques as appropriate, variously including the following: *Automated exposure control *Adjustment of mA and/or kV according to patient size (this includes techniques or standardized protocols for targeted exams where dose is matched to indication/reason for exam; i.e. extremities or head) *Use of iterative reconstruction technique DLP: 683 mGy-cm FINDINGS: The vertebral bodies are normally aligned. There is mild diffuse cervical disc degenerative change with minimal loss of disc space, endplate change and multilevel small osteophytes associated with mild diffuse facet osteoarthritic change without significant spinal canal or neural foraminal narrowing. There is no fracture. The soft tissues are unremarkable. The visualized upper lung foreman are clear. CT/CT cervical spine wo IV con IMPRESSION: Diffuse mild cervical disc degenerative change. No fracture seen. Fleischner guidelines were followed.
--- NOTE | 2022-12-11 16:44 | ECG_ITS ---
Test Reason : cva Blood Pressure : / mmHG Vent. Rate : 063 BPM Atrial Rate : 063 BPM P-R Int : 238 ms QRS Dur : 150 ms QT Int : 504 ms P-R-T Axes : 076 -33 100 degrees QTc Int : 515 ms Poor data quality, interpretation may be adversely affected Sinus rhythm with 1st degree A-V block Left axis deviation Left bundle branch block Abnormal ECG When compared with ECG of 27-OCT-2022 20:37, T wave inversion less evident in Lateral leads Referred By: Johnson Vega Electronically Signed By:GENNY FERRIS
--- NOTE | 2022-12-11 16:50 | ED.NEUROSD ---
HPI - Neuro Symptoms/Deficit General Chief Complaint: Seizure Stated Complaint: Stroke? 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 with right-sided weakness, atrial fibrillation on Eliquis, nonischemic cardiomyopathy status post AICD placement, CKD stage 2, hypertension comes here as he fell out of the bed and noticed having a seizurex2 patient was postictal state when EMS reached and noticed to have right-sided weakness which is more than in the past as per family last seizure was 2 months ago Related Data Home Medications Medication Instructions Recorded Confirmed apixaban 5 mg tablet (Eliquis) 5 mg PO BID 07/02/21 11/04/22 atorvastatin 80 mg tablet 80 mg PO BEDTIME 07/02/21 11/04/22 citalopram 10 mg tablet 10 mg PO DAILY 07/02/21 11/04/22 mirtazapine 7.5 mg tablet 7.5 mg PO DAILY 07/02/21 11/04/22 cholecalciferol (vitamin D3) 25 25 mcg PO DAILY 01/28/22 11/04/22 mcg (1,000 unit) tablet famotidine 20 mg tablet 20 mg PO DAILY 01/28/22 11/04/22 amiodarone 200 mg tablet 200 mg PO DAILY 04/04/22 11/04/22 Previous Rx's Medication Instructions Recorded levetiracetam 500 mg tablet 500 mg PO BID 30 days #60 tabs 07/09/21 acetaminophen 500 mg capsule 500 mg PO Q6H PRN fever or pain 01/15/22 #20 caps aspirin 81 mg capsule 81 mg PO Q48H #30 caps 01/30/22 bumetanide 1 mg tablet 1 mg PO DAILY #30 tabs 01/30/22 carvedilol 12.5 mg tablet 12.5 mg PO BID #60 tabs 01/30/22 spironolactone 25 mg tablet 25 mg PO DAILY #30 tabs 01/30/22 ondansetron 4 mg disintegrating 4 mg PO Q6-8H PRN nausea and 02/08/22 tablet vomiting #14 tabs levetiracetam 1,000 mg tablet 1,000 mg PO BID #60 tabs 10/28/22 (Keppra) sacubitril 97 mg-valsartan 103 mg 1 tab PO BID #100 tabs 11/04/22 tablet Allergies Allergy/AdvReac Type Severity Reaction Status Date / Time No Known Allergies Allergy Verified 12/11/22 16:59 [No Known Allergies*] [facility] Past Medical History Medical History Acute decompensated heart failure Atrial fibrillation with rapid ventricular response Cardiac defibrillator in place Cerebrovascular accident CHF (congestive heart failure) Chronic systolic heart failure CKD (chronic kidney disease), stage II CVA (cerebral vascular accident) Embolism of kidney Gallstones Hypertension NICM (nonischemic cardiomyopathy) NSVT (nonsustained ventricular tachycardia) Persistent atrial fibrillation Renal infarct Restrictive lung disease Uncontrolled hypertension Surgical History (Updated 07/30/22 @ 17:16 by Leslie Nicholas, ANNALEEC) History of cardiac defibrillator placement Family History Family History Other CAD (coronary artery disease) Social History Social History Household Members: Unknown / Unable to assess Housing: Unknown / Unable to assess Do you presently have visiting nurse or other home services: No Unable to assess alcohol history related to: Unknown Alcohol intake: never Patient Tobacco Use Status: Never used Tobacco Advance Directives: Yes Advance Directives on File: Yes Advance Directives Date on File: 10/18/20 service: Yes Current occupational status: employed Physical Exam Vital Signs: Vital Signs: Last Vital Signs Temp 98.5 F 12/11/22 16:56 Pulse 58 12/11/22 19:40 Resp 20 12/11/22 19:40 BP 179/98 H 12/11/22 19:40 Pulse Ox 96 12/11/22 19:40 O2 Del Method Room Air 12/11/22 19:40 BMI result Body Mass Index 35.3 Appearance: Alert. Postictal nonverbal. No acute distress. Agitated on stimulation Eyes: PERRLA, No Nystagmus ENT: Pharynx normal. Oral Mucosa moist in cervical collar AT NC Neck: Normal inspection. Neck supple. CVS: Normal heart rate and rhythm. Pulses normal. Respiratory: No respiratory distress. Equal air entry bilateral, no wheezing/rales/rhonchi Abdomen: Soft and nontender. Bowel sounds are present, no mass palpable, Skin: Skin warm and dry. Normal skin color. Normal skin turgor. Extremities: No lower extremity edema. No calf tenderness Neuro: Awake slightly drowsy postictal. Limited movements on the right side, moving left upper and lower extremity normally No sensory deficit.No cerebellar signs , cranial nerves II-XII intact Medications Administered Discontinued Medications Generic Name Dose Route Start Last Admin Trade Name Frebrenda PRN Reason Stop Dose Admin Levetiracetam 1,000 mg in 100 mls @ 400 mls/hr 12/11/22 18:00 12/11/22 18:39 Keppra IV 12/11/22 18:14 Infused ONCE ONE Infusion Ondansetron HCl 4 mg 12/11/22 18:00 12/11/22 18:16 Ondansetron Hcl 4 Mg/2 Ml Vial IVPUSH 12/11/22 18:01 4 mg ONCE ONE Administration Medical Decision Making Medical Decision Making [facility] Narrative: Patient likely postictal after small seizure was given Keppra in the ER CT scan was negative for acute patient back to baseline at the time of discharge no acute stroke noticed Differential Diagnosis Differential Diagnoses: The differential diagnosis associated with the presentation includes cva/seizure/postictal Lab Data [facility] Lab Attestation statement: I reviewed the patient's lab results. 12/11/22 17:07 12/11/22 17:07 Labs: Lab Results 12/11/22 12/11/22 12/11/22 Range/Units 17:07 17:07 17:07 WBC 4.6 L (4.8-10.8) X10*3/uL RBC 4.67 (4.60-5.80) X10*6/uL Hgb 14.5 (14.0-18.0) g/dl Hct 43.2 (42.0-52.0) % MCV 92.5 (80.0-98.0) fL MCH 31.0 (27.0-33.0) pg MCHC 33.6 (31.0-36.0) g/dl RDW 12.2 (11.0-16.0) % Plt Count 262 (160-400) X10*3/uL MPV 10.1 (9.4-12.4) fL Immature Gran % (Auto) 1.1 H (0.0-0.4) % Neut % (Auto) 78.7 H (45-73) % Lymph % (Auto) 18.5 L (20-40) % [place] % (Auto) 1.3 L (2-11) % Eos % (Auto) 0.0 (0-4) % Baso % (Auto) 0.4 (0-2) % Lymph # (Auto) 0.8 L (1.2-4.9) X10*3/uL [place] # (Auto) 0.1 (0.1-1.2) X10*3/uL Eos # (Auto) 0.0 (0.0-0.4) X10*3/uL Baso # (Auto) 0.0 (0.0-0.2) X10*3/uL Abs Immat Gran (auto) 0.05 H (0.00-0.03) X10*3/uL Absolute Neuts (auto) 3.6 (2.0-8.3) x10*3/uL Absolute Nucleated RBC 0.000 (0.0-0.012) X10*3/uL Nucleated RBC % (auto) 0.0 (0.0-0.2) /100WBC PT 17.0 H (11.1-13.3) SEC INR 1.4 H (0.9-1.1) APTT 34.8 (26.0-36.4) SEC Sodium 145 (135-145) mmol/L Potassium 3.8 (3.3-5.1) mmol/L Chloride 111 H (96-108) mmol/L Carbon Dioxide 27 (22-29) mmol/L Anion Gap 11 L (12-20) BUN 19 H (9-16) mg/dL Creatinine 1.82 H (0.5-1.4) mg/dL Estim Creat Clear Calc 51.2 Estimated GFR 38 Random Glucose 145 H (60-115) mg/dL Calcium 9.1 (8.4-10.2) mg/dL Total Creatine Kinase 172 (38-174) U/L Troponin I High Sens (<3.5-35.0) ng/L 12/11/22 Range/Units 17:07 WBC (4.8-10.8) X10*3/uL RBC (4.60-5.80) X10*6/uL Hgb (14.0-18.0) g/dl Hct (42.0-52.0) % MCV (80.0-98.0) fL MCH (27.0-33.0) pg MCHC (31.0-36.0) g/dl RDW (11.0-16.0) % Plt Count (160-400) X10*3/uL MPV (9.4-12.4) fL Immature Gran % (Auto) (0.0-0.4) % Neut % (Auto) (45-73) % Lymph % (Auto) (20-40) % [place] % (Auto) (2-11) % Eos % (Auto) (0-4) % Baso % (Auto) (0-2) % Lymph # (Auto) (1.2-4.9) X10*3/uL [place] # (Auto) (0.1-1.2) X10*3/uL Eos # (Auto) (0.0-0.4) X10*3/uL Baso # (Auto) (0.0-0.2) X10*3/uL Abs Immat Gran (auto) (0.00-0.03) X10*3/uL Absolute Neuts (auto) (2.0-8.3) x10*3/uL Absolute Nucleated RBC (0.0-0.012) X10*3/uL Nucleated RBC % (auto) (0.0-0.2) /100WBC PT (11.1-13.3) SEC INR (0.9-1.1) APTT (26.0-36.4) SEC Sodium (135-145) mmol/L Potassium (3.3-5.1) mmol/L Chloride (96-108) mmol/L Carbon Dioxide (22-29) mmol/L Anion Gap (12-20) BUN (9-16) mg/dL Creatinine (0.5-1.4) mg/dL Estim Creat Clear Calc Estimated GFR Random Glucose (60-115) mg/dL Calcium (8.4-10.2) mg/dL Total Creatine Kinase (38-174) U/L Troponin I High Sens 14.6 (<3.5-35.0) ng/L Independent Interpretation I performed an independent interpretation of an: EKG Interpretation: Normal sinus rhythm heart rate 63 beats per minute left axis deviation left bundle-branch block no acute ST-T no acute ischemia NIH Stroke Scale Internal: Initial- Upon Arrival Level of Consciousness: Alert Level of Consciousness Questions: Answers neither question correctly Level of Consciousness Commands: Performs neither task correctly Best Gaze: Normal Visual: No visual loss Facial Palsy: Normal Motor Arm (Right): Drift Motor Arm (Left): No drift Motor Leg (Right): Drift Motor Leg (Left): No drift Limb Ataxia: Absent Sensory: Normal Best Language: Severe aphasia Dysarthia: Mild to moderate dysarthria Extinction and Inattention: Profound bonny-inattention or extinction to more than one modality Score: 11 Discharge Plan Discharge Clinical Impression: Seizure disorder Patient Disposition: Home, Self-Care Instructions: Recurrent Seizures in Adults (ED) Additional Instructions: Continue Keppra 500 mg twice daily and follow with neurologist/PCP Contin?e con Keppra 500 mg dos veces al d?a y siga con el neur?logo/PCP Prescriptions: No Action atorvastatin 80 mg tablet 80 mg PO BEDTIME citalopram 10 mg tablet 10 mg PO DAILY mirtazapine 7.5 mg tablet 7.5 mg PO DAILY Eliquis 5 mg tablet 5 mg PO BID levetiracetam 500 mg Tablet 500 mg PO BID 30 Days Qty: 60 0RF acetaminophen 500 mg capsule 500 mg PO Q6H PRN (Reason: fever or pain) Qty: 20 0RF famotidine 20 mg Tablet 20 mg PO DAILY cholecalciferol (vitamin D3) 25 mcg (1,000 unit) Tablet 25 mcg PO DAILY carvedilol 12.5 mg Tablet 12.5 mg PO BID Qty: 60 0RF Protocol: Hold for SBP/HR < HOLD for SBP < : 90 HOLD for HR < : 60 spironolactone 25 mg tablet 25 mg PO DAILY Qty: 30 0RF aspirin 81 mg capsule 81 mg PO Q48H Qty: 30 0RF bumetanide 1 mg tablet 1 mg PO DAILY Qty: 30 0RF ondansetron 4 mg tablet,disintegrating 4 mg PO Q6-8H PRN (Reason: nausea and vomiting) Qty: 14 0RF levetiracetam [Keppra] 1,000 mg tablet 1,000 mg PO BID Qty: 60 0RF amiodarone 200 mg tablet 200 mg PO DAILY sacubitril-valsartan 97-103 mg tablet 1 tab PO BID Qty: 100 3RF Interventions: ED Discharge Assessment Last Done: 12/11/22 20:53 Discharge Date/Time: 12/11/22 20:54 Print Language: Lithuanian
[2022-12-11 16:56] VITALS: BP 169/96; BP 180/100; PULSE 62; PULSE 68; RESP 18; TEMP 36.9; O2SAT 95; O2SAT 98; BMI 35.3
[2022-12-11 17:15] LABS: MANUAL DIFF FLAG NO
[2022-12-11 17:19] LABS: Basophils Percent Auto 0.4 % (0-2); Hematocrit 43.2 % (42.0-52.0); Hemoglobin 14.5 g/dl (14.0-18.0); Imm Gran Abs Auto 0.05 X10*3/uL (0.00-0.03); Imm Gran Pct Auto 1.1 % (0.0-0.4); Lymphocytes Absolute Auto 0.8 X10*3/uL (1.2-4.9); Lymphocytes Percent Auto 18.5 % (20-40); Mean Corpuscular HGB Conc 33.6 g/dl (31.0-36.0); Mean Corpuscular Volume 92.5 fL (80.0-98.0); Mean Platelet Volume 10.1 fL (9.4-12.4); Monocytes Absolute Auto 0.1 X10*3/uL (0.1-1.2); Monocytes Percent Auto 1.3 % (2-11); Neutrophils Absolute Auto 3.6 x10*3/uL (2.0-8.3); Neutrophils Percent Auto 78.7 % (45-73); Platelet Count 262 X10*3/uL (160-400); Red Blood Count 4.67 X10*6/uL (4.60-5.80); Red Cell Distribution Width 12.2 % (11.0-16.0); White Blood Count 4.6 X10*3/uL (4.8-10.8)
[2022-12-11 17:22] LABS: INTERNATIONAL NORM RATIO 1.4 (0.9-1.1)
[2022-12-11 17:25] LABS: Partial Thromboplastin Time 34.8 SEC (26.0-36.4)
--- NOTE | 2022-12-11 17:27 | PC.NURSE ---
Pt RADHA, as a stroke alert, reported that pt was found on ground by EMS/family. Reported two witnessed tonic clonic seizures, vomiting x2 episodes. Pt has right sided weakness. No POC/INR done on arrival per MD request. PT brought to scanner, old stroke showing, no new bleeds noted. MD at bedside reporting old stroke, no new areas of concern. EKG done, labs collected. C-Collar remains in place. Pt able to respond to simple questions at this time.
[2022-12-11 17:38] LABS: Anion Gap 11 (12-20); Blood Urea Nitrogen 19 mg/dL (9-16); Calcium 9.1 mg/dL (8.4-10.2); Carbon Dioxide 27 mmol/L (22-29); Chloride 111 mmol/L (96-108); Creatinine Clr Calc Pharmacy 51.2; Estimated Glomerular Filt Rate 38; Glucose Random 145 mg/dL (60-115); Potassium 3.8 mmol/L (3.3-5.1); Sodium 145 mmol/L (135-145)
[2022-12-11 17:39] VITALS: BP 177/99; PULSE 64; RESP 18; O2SAT 95
[2022-12-11 17:40] LABS: Troponin-I High Sensitivity 14.6 ng/L (<3.5-35.0)
[2022-12-11 18:09] LABS: Stroke Lab Use COMPLETE
[2022-12-11] MEDS: ondansetron HCL 4 MG/2 ML VIAL IVPUSH (18:16)
[2022-12-11] MEDS: levETIRAcetam in NaCl (iso-os) 1,000 MG/100 ML PIGGYBACK 400 MG IV (18:22)
--- NOTE | 2022-12-11 18:39 | PC.NURSE ---
20G IV placed to the LAC by TERRANCE tavares. pt medicated per jun. pt family requesting food for pt. provider approved as long as passed swallow eval. pt passed swallow eval, provided with ham sandwich, orange juice, jello, cheese stick, and heladio crackers. resting quietly on stretcher with family at bedside. rr even/unlabored. call reid within pt reach
[2022-12-11 19:40] VITALS: BP 179/98; PULSE 58; RESP 20; O2SAT 96
== END 2022-12-11 20:54 | disposition home or self-care (01) ==
PROVIDERS: Emergency Provider Internal Medicine
DX: G40.909 Epilepsy, unspecified, not intractable, without status epilepticus (principal); R29.711 NIHSS score 11; I69.351 Hemiplegia and hemiparesis following cerebral infarction affecting right dominant side; I13.0 Hypertensive heart and chronic kidney disease with heart failure and stage 1 through stage 4 chronic kidney disease, or unspecified chronic kidney disease; N18.2 Chronic kidney disease, stage 2 (mild); I50.9 Heart failure, unspecified; I48.19 Other persistent atrial fibrillation; Z79.01 Long term (current) use of anticoagulants; Z79.899 Other long term (current) drug therapy; Z95.810 Presence of automatic (implantable) cardiac defibrillator
CPT/HCPCS: 36415; 70450; 72125; 80048; 82550; 84484; 85025; 85610; 85730; 93005; 96365; 96375; 99284; J1953; J2405

== ENCOUNTER → 2022-12-15 23:59 | Outpatient (BNV) | payer OTHER, SELFPAY ==
--- NOTE | 2023-01-01 12:36 | MHC.OFFVIS ---
Intake Intake Visit Reasons: Remote ICD check- Medtronic Allergies No Known Allergies [No Known Allergies*] Allergy (Verified 12/11/22 16:59) [facility] Medical History Acute decompensated heart failure Atrial fibrillation with rapid ventricular response Cardiac defibrillator in place Cerebrovascular accident CHF (congestive heart failure) Chronic systolic heart failure CKD (chronic kidney disease), stage II CVA (cerebral vascular accident) Embolism of kidney Gallstones Hypertension NICM (nonischemic cardiomyopathy) NSVT (nonsustained ventricular tachycardia) Persistent atrial fibrillation Renal infarct Restrictive lung disease Uncontrolled hypertension Surgical History History of cardiac defibrillator placement Family History Other CAD (coronary artery disease) Social History Household Members: Unknown / Unable to assess Housing: Unknown / Unable to assess Do you presently have visiting nurse or other home services: No Unable to assess alcohol history related to: Unknown Alcohol intake: never Patient Tobacco Use Status: Never used Tobacco Smoked in Last 30 Days: No Use of substances other than those prescribed or required for medical reasons: No Advance Directives: Yes Advance Directives on File: Yes Advance Directives Date on File: 10/18/20 service: Yes Current occupational status: employed Office Procedures Cardiac Device Check Cardiac Device Check Details: Medtronic ICD. Battery life 12 years. No recent episodes of atrial fibrillation, VT or VFib. No new alerts. Ventricular paced 0.4%. [id number] Cardiac Device Interrogation, pacemaker or defibrillator Procedure code (CPT) selection complete Assessment & Plan Assessment & Plan (1) History of cardiac defibrillator placement: Code(s): Z95.810 - Presence of automatic (implantable) cardiac defibrillator Coding Level of Care Code Procedure Only Diagnoses History of cardiac defibrillator placement Z95.810 CPT Codes Cardiac Device Check - Cardiac Device 14: [id number] Cardiac Device Interrogation, pacemaker or defibrillator ([id number])
== END ==
PROVIDERS: Visit Provider Internal Medicine Cardiovascular Disease
DX: I48.19 Other persistent atrial fibrillation (principal); Z95.810 Presence of automatic (implantable) cardiac defibrillator
CPT/HCPCS: 93295

== ENCOUNTER 2022-12-24 15:20 | Emergency (ER) | payer OTHER, SELFPAY ==
--- NOTE | ~2022-12-24 | CT_ITS ---
EXAMINATION: CT HEAD WITHOUT CONTRAST CLINICAL INFORMATION: Headache and neck, strokes and seizure. COMPARISON: CT brain 02/08/2022. TECHNIQUE: Contiguous axial imaging was performed from the skull base to vertex without intravenous administration of contrast. This CT examination was performed using dose optimization techniques as appropriate, variously including the following: *Automated exposure control *Adjustment of mA and/or kV according to patient size (this includes techniques or standardized protocols for targeted exams where dose is matched to indication/reason for exam; i.e. extremities or head) *Use of iterative reconstruction technique DLP: 731 mGy-cm FINDINGS: There is large left MCA territory encephalomalacia from old infarct. There is a left basal ganglia infarcts as well which are stable. There is no new acute infarction evolution. No acute intra-axial or extra-axial bleed, masses or collection. There is loss of left cerebral volume resulting in mild ipsilateral midline shift. The lateral ventricles are asymmetrical but enlarged but unchanged to previous study 02/08/2022. Bone windows reveal no calvarial abnormality. There is no scalp soft tissue abnormality. Bilateral paranasal sinuses and mastoid air cells are well-aerated. CT/CT head/brain wo IV con IMPRESSION: 1. No acute intracranial process seen. 2. Large left MCA territory encephalomalacia from old infarct. There is a left basal ganglia infarct as well. 3. There is asymmetrical enlargement of lateral ventricles, stable to previous study 02/08/2022.
[2022-12-24 15:39] VITALS: BP 130/80; BP 149/74; PULSE 54; PULSE 56; RESP 16; TEMP 37.2; O2SAT 97; O2SAT 98; BMI 40.2
--- NOTE | 2022-12-24 15:50 | ED_ITS ---
HPI - Weakness General Chief complaint: Weakness Stated complaint: WEAKNESS,DIZZY,SHIN,H/O STROKES PER EMS Time Seen by Provider: 12/24/22 15:47 Source: EMS Mode of arrival: EMS Limitations: language barrier History of Present Illness HPI Narrative: patient feels weak all over. According to he has had strokes in the past, he cant speak, his right side is weak. He can use a cane a little bit. He also has seizure disorder. The is most concerned about his headaches and strokes Related Data Home Medications Medication Instructions Recorded Confirmed apixaban 5 mg tablet (Eliquis) 5 mg PO BID 07/02/21 11/04/22 atorvastatin 80 mg tablet 80 mg PO BEDTIME 07/02/21 11/04/22 citalopram 10 mg tablet 10 mg PO DAILY 07/02/21 11/04/22 mirtazapine 7.5 mg tablet 7.5 mg PO DAILY 07/02/21 11/04/22 cholecalciferol (vitamin D3) 25 25 mcg PO DAILY 01/28/22 11/04/22 mcg (1,000 unit) tablet famotidine 20 mg tablet 20 mg PO DAILY 01/28/22 11/04/22 amiodarone 200 mg tablet 200 mg PO DAILY 04/04/22 11/04/22 Previous Rx's Medication Instructions Recorded levetiracetam 500 mg tablet 500 mg PO BID 30 days #60 tabs 07/09/21 acetaminophen 500 mg capsule 500 mg PO Q6H PRN fever or pain 01/15/22 #20 caps aspirin 81 mg capsule 81 mg PO Q48H #30 caps 01/30/22 bumetanide 1 mg tablet 1 mg PO DAILY #30 tabs 01/30/22 carvedilol 12.5 mg tablet 12.5 mg PO BID #60 tabs 01/30/22 spironolactone 25 mg tablet 25 mg PO DAILY #30 tabs 01/30/22 ondansetron 4 mg disintegrating 4 mg PO Q6-8H PRN nausea and 02/08/22 tablet vomiting #14 tabs levetiracetam 1,000 mg tablet 1,000 mg PO BID #60 tabs 10/28/22 (Keppra) sacubitril 97 mg-valsartan 103 mg 1 tab PO BID #100 tabs 11/04/22 tablet Allergies Allergy/AdvReac Type Severity Reaction Status Date / Time No Known Allergies Allergy Verified 12/11/22 16:59 [No Known Allergies*] Review of Systems Review of Systems: Yes all other systems are reviewed and are negative Neurologic: Denies Sensory deficit (Neuro) [facility] Past Medical History Medical History Acute decompensated heart failure Atrial fibrillation with rapid ventricular response Cardiac defibrillator in place Cerebrovascular accident CHF (congestive heart failure) Chronic systolic heart failure CKD (chronic kidney disease), stage II CVA (cerebral vascular accident) Embolism of kidney Gallstones Hypertension NICM (nonischemic cardiomyopathy) NSVT (nonsustained ventricular tachycardia) Persistent atrial fibrillation Renal infarct Restrictive lung disease Uncontrolled hypertension Surgical History History of cardiac defibrillator placement Family History Family History Other CAD (coronary artery disease) Social History Social History Household Members: Unknown / Unable to assess Housing: Unknown / Unable to assess Do you presently have visiting nurse or other home services: No Unable to assess alcohol history related to: Unknown Alcohol intake: never Patient Tobacco Use Status: Never used Tobacco Smoked in Last 30 Days: No Use of substances other than those prescribed or required for medical reasons: No Advance Directives: Yes Advance Directives on File: Yes Advance Directives Date on File: 10/18/20 service: Yes Current occupational status: employed Physical Exam Vital Signs: Vital Signs: Last Vital Signs Temp 99.0 F 12/24/22 15:39 Pulse 50 12/24/22 18:20 Resp 18 12/24/22 18:20 BP 155/78 H 12/24/22 18:20 Pulse Ox 98 12/24/22 18:20 O2 Del Method Room Air 12/24/22 18:20 BMI result Body Mass Index 40.2 Const: Other: male obese unable to answer question Limitations: no limitations HEENT: Head: Yes normal to inspection Ears: external ears normal General nose exam: Normal external nose present Mouth: Normal oral and palatal mucosa present and oropharynx normal Throat: Yes posterior oropharynx normal Eyes: General: appearance normal, both eyes and all related structures Neck: Other: supple Neck: Yes normal visual inspection Chest: Chest palpation & inspection: normal inspection of the chest Resp: Auscultation: clear to auscultation bilaterally Cardio: Jugular venous distension: no JVD Rate: regular rate Rhythm: regular rhythm Heart sounds: S1 normal heart sound present and S2 normal heart sound present GI: Inspection: Yes normal to inspection Palpation (GI): Soft to palpation, nontender and No hepatosplenomegaly present Auscultation: normal bowel sounds : General: Yes no CVA tenderness Back/Spine/Pelvis: Back: no CVA tenderness Skin: General skin exam: no rashes or lesions noted Neuro: Other: old right sided weakness Cranial nerves: Yes CN's II-XII intact bilaterally Sensory Exam: No Sensory deficit (Neuro) Extrem: General: Yes normal to inspection Psych: Appearance: grossly normal Course Reevaluation(s) Reevaluation #1: patient with old infarct nothing acute to explain his headache and weakness Time: 19:22 Medical Decision Making Differential Diagnosis Differential Diagnoses: The differential diagnosis associated with the presentation includes (cerebral bleed, uti, electrolyte abnormality were all considered) Admission/Observation Consideration of admission/observation: Escalation of care including admission/observation considered (upon arrival patient considered for admission) Lab Data MDM Lab Attestation statement: I reviewed the patient's lab results. (no elevated WBC, renal insufficiency at baseline) 12/24/22 16:50 12/24/22 16:36 Labs: Lab Results 12/24/22 12/24/22 12/24/22 Range/Units 16:36 16:50 17:30 WBC 5.5 (4.8-10.8) X10*3/uL RBC 4.36 L (4.60-5.80) X10*6/uL Hgb 13.8 L (14.0-18.0) g/dl Hct 42.0 (42.0-52.0) % MCV 96.3 (80.0-98.0) fL MCH 31.7 (27.0-33.0) pg MCHC 32.9 (31.0-36.0) g/dl RDW 12.4 (11.0-16.0) % Plt Count 227 (160-400) X10*3/uL MPV 10.5 (9.4-12.4) fL Immature Gran % (Auto) 0.4 (0.0-0.4) % Neut % (Auto) 50.8 (45-73) % Lymph % (Auto) 36.1 (20-40) % [place] % (Auto) 8.9 (2-11) % Eos % (Auto) 3.1 (0-4) % Baso % (Auto) 0.7 (0-2) % Lymph # (Auto) 2.0 (1.2-4.9) X10*3/uL [place] # (Auto) 0.5 (0.1-1.2) X10*3/uL Eos # (Auto) 0.2 (0.0-0.4) X10*3/uL Baso # (Auto) 0.0 (0.0-0.2) X10*3/uL Abs Immat Gran (auto) 0.02 (0.00-0.03) X10*3/uL Absolute Neuts (auto) 2.8 (2.0-8.3) x10*3/uL Absolute Nucleated RBC 0.000 (0.0-0.012) X10*3/uL Nucleated RBC % (auto) 0.0 (0.0-0.2) /100WBC Sodium 143 (135-145) mmol/L Potassium 4.0 (3.3-5.1) mmol/L Chloride 113 H (96-108) mmol/L Carbon Dioxide 22 (22-29) mmol/L Anion Gap 12 (12-20) BUN 20 H (9-16) mg/dL Creatinine 1.59 H (0.5-1.4) mg/dL Estim Creat Clear Calc 48.2 Estimated GFR 44 Random Glucose 132 H (60-115) mg/dL Calcium 8.7 (8.4-10.2) mg/dL Urine Color Yellow Urine Appearance Clear Urine pH 6.0 (5.0-9.0) Ur Specific [place] 1.015 (1.005-1.025) Urine Protein Negative (Neg-Trace) mg/dL Urine Glucose (UA) Negative (Negative) mg/dL Urine Ketones Negative (Negative) mg/dL Urine Blood Negative (Negative) Urine Nitrite Negative (Negative) Ur Leukocyte Esterase Negative (Negative) Independent Interpretation I performed an independent interpretation of an: CT Scan (old large left infarct) Radiology Impression Discussion of test interpretation with radiology: I have reviewed the radiologist's reading. Independent Historian Clinical information obtained from an independent historian. History obtained fr om or confirmed by: Spouse External Record Review External record reviewed: Outpatient record Prescription Management I considered prescription management with: Antibiotic (no UTI found) Chronic Conditions Patient?s care impacted by: Diabetes and Hypertension Discharge Plan Discharge Clinical Impression: Headache, Weakness Patient Disposition: Home, Self-Care Instructions: Acute Headache (ED) Prescriptions: No Action atorvastatin 80 mg tablet 80 mg PO BEDTIME citalopram 10 mg tablet 10 mg PO DAILY mirtazapine 7.5 mg tablet 7.5 mg PO DAILY Eliquis 5 mg tablet 5 mg PO BID levetiracetam 500 mg Tablet 500 mg PO BID 30 Days Qty: 60 0RF acetaminophen 500 mg capsule 500 mg PO Q6H PRN (Reason: fever or pain) Qty: 20 0RF famotidine 20 mg Tablet 20 mg PO DAILY cholecalciferol (vitamin D3) 25 mcg (1,000 unit) Tablet 25 mcg PO DAILY carvedilol 12.5 mg Tablet 12.5 mg PO BID Qty: 60 0RF Protocol: Hold for SBP/HR < HOLD for SBP < : 90 HOLD for HR < : 60 spironolactone 25 mg tablet 25 mg PO DAILY Qty: 30 0RF aspirin 81 mg capsule 81 mg PO Q48H Qty: 30 0RF bumetanide 1 mg tablet 1 mg PO DAILY Qty: 30 0RF ondansetron 4 mg tablet,disintegrating 4 mg PO Q6-8H PRN (Reason: nausea and vomiting) Qty: 14 0RF levetiracetam [Keppra] 1,000 mg tablet 1,000 mg PO BID Qty: 60 0RF amiodarone 200 mg tablet 200 mg PO DAILY sacubitril-valsartan 97-103 mg tablet 1 tab PO BID Qty: 100 3RF Referrals: [facility] [Primary Care Provider] - 3 days
[2022-12-24 16:54] LABS: MANUAL DIFF FLAG NO
[2022-12-24 17:00] LABS: Anion Gap 12 (12-20); Blood Urea Nitrogen 20 mg/dL (9-16); Calcium 8.7 mg/dL (8.4-10.2); Carbon Dioxide 22 mmol/L (22-29); Chloride 113 mmol/L (96-108); Creatinine Clr Calc Pharmacy 48.2; Estimated Glomerular Filt Rate 44; Glucose Random 132 mg/dL (60-115); Sodium 143 mmol/L (135-145)
[2022-12-24 17:02] LABS: Basophils Percent Auto 0.7 % (0-2); Eosinophils Absolute Auto 0.2 X10*3/uL (0.0-0.4); Eosinophils Percent Auto 3.1 % (0-4); Hemoglobin 13.8 g/dl (14.0-18.0); Imm Gran Abs Auto 0.02 X10*3/uL (0.00-0.03); Imm Gran Pct Auto 0.4 % (0.0-0.4); Lymphocytes Percent Auto 36.1 % (20-40); Mean Corpuscular HGB Conc 32.9 g/dl (31.0-36.0); Mean Corpuscular Hemoglobin 31.7 pg (27.0-33.0); Mean Corpuscular Volume 96.3 fL (80.0-98.0); Mean Platelet Volume 10.5 fL (9.4-12.4); Monocytes Absolute Auto 0.5 X10*3/uL (0.1-1.2); Monocytes Percent Auto 8.9 % (2-11); Neutrophils Absolute Auto 2.8 x10*3/uL (2.0-8.3); Neutrophils Percent Auto 50.8 % (45-73); Platelet Count 227 X10*3/uL (160-400); Red Blood Count 4.36 X10*6/uL (4.60-5.80); Red Cell Distribution Width 12.4 % (11.0-16.0); White Blood Count 5.5 X10*3/uL (4.8-10.8)
[2022-12-24 17:27] VITALS: BP 153/66; PULSE 51; RESP 16; O2SAT 100
[2022-12-24 17:57] LABS: Appearance Urine Clear; Color Urine Yellow; Glucose Urine UA Negative (Negative); Leukocyte Esterase Urine Negative (Negative); Nitrite Urine Negative (Negative); Specific Gravity - Urine 1.015 (1.005-1.025); Urine Blood Negative (Negative); Urine Ketones Negative (Negative); Urine Protein Negative (Neg-Trace)
[2022-12-24 18:20] VITALS: BP 155/78; PULSE 50; RESP 18; O2SAT 98
--- NOTE | 2022-12-24 20:06 | PC.NURSE ---
Reviewed discharge instructions with pt. pt verbalized understanding. no sign of distress.
== END 2022-12-25 01:06 | disposition home or self-care (01) ==
PROVIDERS: Emergency Provider Emergency Medicine
DX: R53.1 Weakness (principal); R42 Dizziness and giddiness; R51.9 Headache, unspecified; Z79.899 Other long term (current) drug therapy
CPT/HCPCS: 36415; 70450; 80048; 81003; 85025; 99284

== ENCOUNTER → 2023-03-16 23:59 | Outpatient (BNV) | payer OTHER, SELFPAY ==
--- NOTE | 2023-03-20 18:43 | MHC.OFFVIS ---
Intake Intake Visit Reasons: Remote ICD Check- Medtronic Allergies No Known Allergies [No Known Allergies*] Allergy (Verified 12/11/22 16:59) [facility] Medical History Acute decompensated heart failure Atrial fibrillation with rapid ventricular response Cardiac defibrillator in place Cerebrovascular accident CHF (congestive heart failure) Chronic systolic heart failure CKD (chronic kidney disease), stage II CVA (cerebral vascular accident) Embolism of kidney Gallstones Hypertension NICM (nonischemic cardiomyopathy) NSVT (nonsustained ventricular tachycardia) Persistent atrial fibrillation Renal infarct Restrictive lung disease Uncontrolled hypertension Surgical History History of cardiac defibrillator placement Family History Other CAD (coronary artery disease) Household Members: Unknown / Unable to assess Housing: Unknown / Unable to assess Do you presently have visiting nurse or other home services: No Unable to assess alcohol history related to: Unknown Alcohol intake: never Patient Tobacco Use Status: Never used Tobacco Advance Directives Date on File: 10/18/20 service: Yes Current occupational status: employed Office Procedures Cardiac Device Check Cardiac Device Check Details: ICD Good battery life. No new alerts. [id number] Cardiac Device Interrogation, pacemaker or defibrillator Procedure code (CPT) selection complete Assessment & Plan Assessment & Plan (1) NICM (nonischemic cardiomyopathy): Comment: Cardiac cath 08/14/16 showed only minimal luminal irregularities in RCA, nondominant vessel Code(s): I42.8 - Other cardiomyopathies Orders: Orders AMB Cardiac Device Follow-up 03/16/23 I42.8 - Other cardiomyopathies Coding Level of Care Code Procedure Only Diagnoses NICM (nonischemic cardiomyopathy) I42.8 CPT Codes Cardiac Device Check - Cardiac Device 14: [id number] Cardiac Device Interrogation, pacemaker or defibrillator ([id number])
== END ==
PROVIDERS: Visit Provider Internal Medicine Cardiovascular Disease
DX: I42.8 Other cardiomyopathies (principal); Z95.810 Presence of automatic (implantable) cardiac defibrillator
CPT/HCPCS: 93295

== ENCOUNTER 2023-05-29 09:47 | Outpatient (AMB) | payer OTHER, SELFPAY ==
--- NOTE | 2023-05-29 09:51 | A.OFFVIS_ITS ---
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 reports he had a stroke in March of 2021 and has since had cognitive and memory issues. He is often agitated because of his inability to communicate effectively. 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: No Allergies No Known Allergies [No Known Allergies*] Allergy (Verified 05/29/23 09:52) Medication List - Last Reconciled 05/29/23 by Steffi Irwin MD acetaminophen 500 mg PO Q6H PRN amiodarone 200 mg PO DAILY apixaban (Eliquis) 5 mg PO BID aspirin 81 mg PO Q48H atorvastatin 80 mg PO BEDTIME bumetanide 1 mg PO DAILY carvedilol 12.5 mg See Protocol PO BID cholecalciferol (vitamin D3) 25 mcg PO DAILY citalopram 10 mg PO DAILY famotidine 20 mg PO DAILY levetiracetam 1,000 mg (2 x 500 mg) PO BID 30 days mirtazapine 7.5 mg PO DAILY ondansetron 4 mg PO Q6-8H PRN sacubitril-valsartan 97-103 mg 1 tab PO BID spironolactone 25 mg PO DAILY HPI HPI Comments History of Present Illness Details 62y/o male comes for further management of seizure disorder. He had a stroke in Mar 2021 - he had speech difficulty , right sided weakness he was taken to [facility] and transferred to [facility]. He still has expressive aphasia and right sided weakness.He had a large Left MCA stroke He is accompanied by his SIDE SEAM ENVELOPE MACHINE OPERATOR who helps with history.He had a seizure in june of 2021- was admitted at [facility] and was started on Levetiracetam 500mg bid and has had total of 4 seizures since then ( Gen tonic clonic seizures.)HE REPORTS SIGNIFICANT BEHAVIORAL SIDE EFFECTS WITH LEVITIRACETAM. His last seizure was an aura 2 days ago - he felt dizzy and weak.His last generalized seizure was 2months ago . They report compliance with keppra 1000mg bid I reviewed reports from Dr Fernando and EEG report. He has h/o FRAN but noncompliant with CPAP. [facility] Medical History (Updated 05/29/23 @ 10:47 by Steffi Irwin MD) Behavior disturbance Seizure as late effect of cerebrovascular accident (CVA) Restrictive lung disease Uncontrolled hypertension Acute decompensated heart failure Cerebrovascular accident CVA (cerebral vascular accident) Atrial fibrillation with rapid ventricular response Persistent atrial fibrillation Chronic systolic heart failure Gallstones CHF (congestive heart failure) Embolism of kidney CKD (chronic kidney disease), stage II Cardiac defibrillator in place NSVT (nonsustained ventricular tachycardia) NICM (nonischemic cardiomyopathy) Renal infarct Hypertension Surgical History History of cardiac defibrillator placement Family History Other CAD (coronary artery disease) Social History Household Members: Unknown / Unable to assess Housing: Unknown / Unable to assess Do you presently have visiting nurse or other home services: No Unable to assess alcohol history related to: Unknown Alcohol intake: never 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 Tobacco Use Status: Never used Tobacco Advance Directives Date on File: 10/18/20 service: Yes Current occupational status: employed Physical Exam Vital Signs: Last Vital Signs Pulse 56 05/29/23 09:53 Resp 16 05/29/23 09:53 BP 124/72 05/29/23 09:53 Pulse Ox 100 05/29/23 09:53 Oxygen Delivery Method Room Air 05/29/23 09:53 BMI result Body Mass Index 41.9 Const General: cooperative, healthy appearing, comfortable and no acute distress Nutritional Appearance: obese Orientation/consciousness: patient oriented x3 Eyes Pupils: Equal, round and reactive pupils present Neuro Other: Right UMN type facial paresis Right UE 4/5 Right LE 4/5 Tone mild increased right UE and LE Gait - mild circumduction right Speech- expressive aphasia ,decreased fluency General: patient oriented x3, moves all extremities and Normal light touch and pain sensation Cranial nerves: Yes Facial sensation intact/muscles of mastication intact, Yes Equal, round and reactive pupils present, Yes Bilaterally intact EOM present, Yes Nystagmus not present and Yes Symmetric palate elevation present Cognition (Neuro): normal cognition Motor exam (neuro): Normal motor muscle tone present throughout Deep tendon reflexes (DTR's): Right triceps reflex intensity grade: 2+, Left triceps reflex intensity grade: 1+, Rt Biceps (C5, C6): 2+, Left biceps reflex intensity grade: 1+, Right brachioradialis reflex intensity grade: 2+, Left brachioradialis reflex intensity grade: 1+, Right patellar reflex intensity grade: 2+ and Left patellar reflex intensity grade: 1+ Coordination: [id number] test normal Results Reviewed Results Reviewed: [address] [address] Electroencephalogram Report Signed Patient: Donny Costa MR#: [id number] : 1960 ADM Date: 07/02/21 The waking background activity consists of low voltage fast frequencies seen diffusely, intermixed with a low voltage posterior 10 hertz alpha frequency. One episode of left occipital paroxysmal theta discharges seen for about 10 seconds without any clinical symptoms. Photic stimulation and hyperventilation were omitted. IMPRESSION: This EEG is considered borderline abnormal due to a single episode of left occipital paroxysmal theta, which may suggest some element of cerebral irritability. These findings are not developed well enough to be conclusively diagnostic for a seizure disorder. Assessment & Plan Assessment & Plan (1) Seizure as late effect of cerebrovascular accident (CVA): Code(s): I69.398 - Other sequelae of cerebral infarction; R56.9 - Unspecified convulsions (2) Behavior disturbance: Comment: secondary to levetiracetam Code(s): F91.9 - Conduct disorder, unspecified Plan Decrease levetiacetam 500mg bid Start depakote ER 500mg bid Vit B 6 100mg bid Clonazepam 1mg as needed for seizures. Orders: Orders EEG electroencephalogram Today I69.398 - Other sequelae of cerebral infarction, R56.9 - Unspecified convulsions Medications: New divalproex ER (Depakote ER) 500 mg PO BID 60 tabs 6RF clonazepam 1 tab at onset of seizures and can be repeated in 20 min if needed orally; administer 30 minutes before bedtime 10 tabs 1RF levetiracetam 500 mg PO BID 60 tabs 6RF pyridoxine (vitamin B6) (Vitamin B-6) 100 mg PO BID 60 tabs 6RF Changed From levetiracetam 500 mg PO BID 30 days 60 tabs 0RF To levetiracetam 1,000 mg (2 x 500 mg) PO BID 30 days 120 tabs 0RF Discontinued levetiracetam (Keppra) Discontinued Reason: Patient no longer taking 1,000 mg PO BID 60 tabs 0RF Coding Level of Care Code New Pt Level 4 (29312) Diagnoses Seizure as late effect of cerebrovascular accident (CVA) I69.398; R56.9 Behavior disturbance F91.9
[2023-05-29 09:53] VITALS: BP 124/72; PULSE 56; RESP 16; O2SAT 100; BMI 41.9
== END 2023-05-29 10:46 | disposition home or self-care (01) ==
PROVIDERS: Visit Provider Psychiatry & Neurology Neurology
DX: I69.398 Other sequelae of cerebral infarction (principal); R56.9 Unspecified convulsions; F91.9 Conduct disorder, unspecified
CPT/HCPCS: 99204

== ENCOUNTER → 2023-05-29 09:47 | Outpatient (BNVA) | payer OTHER, SELFPAY | PROVIDERS: Visit Provider Psychiatry & Neurology Neurology | DX: I69.398 Other sequelae of cerebral infarction (principal); R56.9 Unspecified convulsions; F91.9 Conduct disorder, unspecified; Z79.899 Other long term (current) drug therapy | CPT/HCPCS: 99202 ==

== ENCOUNTER → 2023-06-15 23:59 | Outpatient (BNV) | payer OTHER, SELFPAY ==
--- NOTE | 2023-07-13 12:33 | A.OFFVIS_ITS ---
Intake Intake Visit Reasons: Remote ICD Check- Medtronic Allergies No Known Allergies [No Known Allergies*] Allergy (Verified 07/02/23 13:53) [facility] Medical History (Updated 07/02/23 @ 14:18 by Gemini Fuentes MD) PAF (paroxysmal atrial fibrillation) Chronic heart failure DOT (acute kidney injury) Behavior disturbance Seizure as late effect of cerebrovascular accident (CVA) Restrictive lung disease Uncontrolled hypertension Acute decompensated heart failure Cerebrovascular accident CVA (cerebral vascular accident) Atrial fibrillation with rapid ventricular response Persistent atrial fibrillation Chronic systolic heart failure Gallstones CHF (congestive heart failure) Embolism of kidney CKD (chronic kidney disease), stage II Cardiac defibrillator in place NSVT (nonsustained ventricular tachycardia) NICM (nonischemic cardiomyopathy) Renal infarct Hypertension Surgical History History of cardiac defibrillator placement Family History Mother No problems noted. Father No problems noted. 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 [id number] Cardiac Device Interrogation, pacemaker or defibrillator Procedure code (CPT) selection complete Assessment & Plan Assessment & Plan (1) NICM (nonischemic cardiomyopathy): Comment: Cardiac cath 08/14/16 showed only minimal luminal irregularities in RCA, nondominant vessel Code(s): I42.8 - Other cardiomyopathies Plan Coding Level of Care Code Procedure Only Diagnoses NICM (nonischemic cardiomyopathy) I42.8 CPT Codes Cardiac Device Check - Cardiac Device 14: [id number] Cardiac Device Interrogation, pacemaker or defibrillator ([id number])
== END ==
PROVIDERS: PCP Internal Medicine; Visit Provider Internal Medicine Cardiovascular Disease
DX: I42.8 Other cardiomyopathies (principal)
CPT/HCPCS: 93296

== ENCOUNTER 2023-06-19 04:23 | Emergency (ER) | payer OTHER, SELFPAY ==
[2023-06-19] VITALS (8 sets, daily range): BP systolic 104–138; BP diastolic 57–71; PULSE 54–67; RESP 14–17; TEMP 36.9–37.7; O2SAT 96–98; BMI 32.0
--- NOTE | ~2023-06-19 | XR_ITS ---
EXAMINATION: XR CHEST CLINICAL INFORMATION: Abnormal breath sounds. History of Covid COMPARISON: 04/15/2022 TECHNIQUE: Frontal view of the chest was obtained. FINDINGS: Lungs clear. Minor perihilar scarring noted. Heart and pulmonary vessels normal. No congestive change. A left sided pacer stable in appearance. XR/XR chest 1V IMPRESSION: No active disease on this single portable view.
--- NOTE | 2023-06-19 04:50 | PC.NURSE ---
stated to ems to call when pt ready for discharge.
--- OUTSIDE RECORDS SUMMARY | 2023-06-19 04:56 | XMS_ITS | Continuity of Care Document ---
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 Anatomy And Physiology Instructor Name Role Phone Dayanna RAZA, Jessica Bourgeois Primary Care Physician Encounter [facility] [place] Date(s): 06/08/20 - 07/08/20 [facility] [address], [place] [address] Allergies, Adverse Reactions, Alerts Substance Reaction Severity Status NKA Active Medications amLODIPine 10 mg oral tablet 10 mg, 1, tablet, By Mouth, Daily, # 90 tablet, Refills 0, Maintenance, 06/06/20 6:23:00 EST, Partial fill upon patient request if the prescription is for a schedule II opioid drug. Start Date: 06/06/20 Status: Ordered Coreg 6.25 mg oral tablet 6.25 mg, 1, tablet, By Mouth, 2 times a day, # 60 tablet, Refills 0, Tot. Refills 0, Maintenance, 03/25/20 11:03:00 EST, Route to Pharmacy Electronically, [facility], Partial fill upon patient request, 168, cm, 03/25/20 7:33:00 EST, Heig... Start Date: 03/25/20 Status: Ordered Problem List Condition Effective Dates Status Health Status Inform ant Bradycardia(Confirmed) Active
--- OUTSIDE RECORDS SUMMARY | 2023-06-19 04:56 | XMS_ITS | Continuity of Care Document ---
Author Name Unknown Organization [facility] ter Address [address] [place] [id number]- Care Team Providers Care Mini Lab Operator Name Role Phone Dayanna RAZA, Jessica Bourgeois Primary Care Physician Encounter [facility] [place] Date(s): 04/16/21 - 04/26/[address] [address]- Encounter Diagnosis Cerebrovascular accident (stroke)(Final) - 04/09/21 Discharge Disposition: A-D/C Home Attending Physician: Gabe Pyle MD Admitting Physician: Pipo RAZA, Emile Li Referring Physician: Not on Staff, Referring MD Allergies, Adverse Reactions, Alerts Substance Reaction Severity Status NKA Active Immunizations Given and Recorded Vaccine Date Status Refusal Reason SARS-CoV-2 (COVID-19) mRNA BNT-162b2 vac 07/25/20 Recorded SARS-CoV-2 (COVID-19) mRNA BNT-162b2 vac 07/04/20 Recorded influenza virus vaccine, inactivated 05/07/19 Kit rded influenza virus vaccine, inactivated 07/16/15 Kit rded pneumococcal 23-valent vaccine 07/16/15 Recorded Medications aspirin 81 mg oral tablet, chewable 81 mg, 1, tablet, By Mouth, Daily, Refills 0, Maintenance, 04/26/21 13:50:00 EST, Partial fill uponpatient request if the prescription is for a schedule II opioid drug. Start Date: 04/26/21 Status: Ordered atorvastatin 80 mg oral tablet 1 tablet = 80 mg, By Mouth, Daily at bedtime, 0 Refills, Maintenance, 04/26/21 13:50:00 EST, Tablet, Partial fill upon patient request if the prescription is for a schedule II opioid drug. Start Date: 04/26/21 Status: Ordered benzonatate 200 mg oral capsule 1 capsule = 200 mg, By Mouth, 3 times a day, PRN Cough, 0 Refills, Maintenance, 04/09/21 10:29:00 EST, Capsule, Partial fill upon patient request if the prescription is for a schedule II opioid drug. Start Date: 04/09/21 Status: Ordered Coreg 3.125 mg oral tablet 3.125 mg, Tablet, By Mouth, Hold for: Hold for HR <50, 04/26/21 9:00:00 EST Start Date: 04/26/21 Stop Date: 04/26/21 Status: Completed Coreg 3.125 mg oral tablet 3.125 mg, 1, tablet, By Mouth, 2 times a day, Refills 0, Maintenance, 04/26/21 13:50:00 EST, Partial fill upon patient request if the prescription is for a schedule II opioid drug. Start Date: 04/26/21 Status: Ordered famotidine 20 mg oral tablet 20 mg, 1, tablet, By Mouth, Daily, # 30 tablet, Refills 0, Maintenance, 04/26/21 13:46:00 EST, Partial fill upon patient request if the prescription is for a schedule II opioid drug. Start Date: 04/26/21 Status: Ordered furosemide 40 mg oral tablet 40 mg, 1, tablet, By Mouth, Daily, # 30 tablet, Refills 0, Maintenance, 04/09/21 10:25:00 EST, Partial fill upon patient request if the prescription is for a schedule II opioid drug. Start Date: 04/09/21 Status: Ordered PROzac 20 mg oral capsule 20 mg, 1, capsule, By Mouth, Daily, Refills 0, Maintenance, 04/26/21 13:50:00 EST, Partial fill upon patient request if the prescription is for a schedule II opioid drug. Start Date: 04/26/21 Status: Ordered sildenafil 100 mg oral tablet 1 tablet = 100 mg, By Mouth, Daily, 1 hour before sexual activity, # 5 tablet, 0 Refills, Maintenance, 04/09/21 10:26:00 EST, Tablet, Partial fill upon patient request if the prescription is for a schedule II opioid drug. Start Date: 04/09/21 Status: Ordered spironolactone 25 mg oral tablet 25 mg, 1, tablet, By Mouth, Daily, Refills 0, Maintenance, 04/26/21 13:50:00 EST, Partial fill uponpatient request if the prescription is for a schedule II opioid drug. Start Date: 04/26/21 Status: Ordered valsartan 40 mg oral tablet 80 mg, Tablet, By Mouth, 04/26/21 9:00:00 EST Start Date: 04/26/21 Stop Date: 04/26/21 Status: Completed valsartan 40 mg oral tablet 80 mg, 2, tablet, By Mouth, Daily, Refills 0, Maintenance, 04/26/21 13:50:00 EST, Partial fill uponpatient request if the prescription is for a schedule II opioid drug. Start Date: 04/26/21 Status: Ordered zolpidem 5 mg oral tablet 1 tablet = 5 mg, By Mouth, Daily at bedtime, PRN as needed for sleep, do not exceed 4/ week, # 30 tablet, 0 Refills, Maintenance, 04/09/21 10:28:00 EST, Partial fill upon patient request if the prescription is for a schedule II opioid drug. Start Date: 04/09/21 Status: Ordered Problem List Condition Effective Dates Status Health Status Inform ant Bradycardia(Confirmed) Active Results Radiology Reports (Most Recent Ten) * Exam Date Time Procedure Performing Provider Status 04/21/21 11:25 PM Ankle Min 3 Views Left Liquori , Neymar hael; Auth (Verified) Notes: (Ankle Min 3 Views Left) Reason For Exam: Swelling of left ankle with discomfort;Pain RESULT: Ankle Min 3 Views Left Left ankle 3 views Reason: Pain; Swelling of left ankle with discomfort; COMPARISON: None. FINDINGS: No evidence of acute or healing fracture or bone lesion. Intact ankle mortise and talar dome. Small Achilles and plantar heel spurs. Moderate swelling, particularly over the lateral malleolus. Heavy vascular calcification. IMPRESSION: Soft tissue swelling but no other acute process WSN: [id number] Ordering Physician: Merritt Chance Dictated By: Timothy Santizo MD Dictated Date/Time: 04/21/21 11:27 p Reviewed By: Timothy Santizo MD Signed By: Timothy Santizo MD Signed Date/Time: 04/21/21 11:27 pm Transcribed By: MALAIKA Transcribed Date/Time: 04/21/21 11:26 pm * Exam Date Time Procedure Performing Provider Status 04/17/21 3:42 AM Chest Portable Rashmi Sen; [facility] (Verified) Notes: (Chest Portable) Reason For Exam: NGT replaced after patient pulled it out;Line Placement RESULT: Chest Portable Chest Portable, AP upright at 3:22 AM. Reason: Line Placement; NGT replaced after patient pulled it out; Clinical Question(s): Line Placement COMPARISON: Multiple priors, most recent 04/17/2021 at 12:38 AM. FINDINGS: LINES AND TUBES: Single lead left subclavian pacer/defibrillator wire is intact. Enteric tube with the distal tip in the stomach. LUNGS AND PLEURA: Low lung volumes with mild basilar atelectasis and pulmonary vascular crowding. Lungs are otherwiseclear with no consolidation. No pleural effusion. No pneumothorax. HEART, MEDIASTINUM AND RAMON: Unchanged. BONES AND SOFT TISSUES: No acute abnormality. IMPRESSION: 1. Adequate position of enteric tube. 2. No acute cardiopulmonary abnormality. I have personally reviewed the images and I agree with this report. WSN: [id number] Ordering Physician: Jakob Kang Dictated By: Rajesh Ravi DO Dictated Date/Time: 04/17/21 7:49 am Reviewed By: Vikash Matamoros MD Signed By: Vikash Matamoros MD Signed Date/Time: 04/17/21 7:54 am Transcribed By: MALAIKA Transcribed Date/Time: 04/17/21 7:48 am * Exam Date Time Procedure Performing Provider Status 04/17/21 12:54 AM Chest Portable [facility] (Verified) Notes: (Chest Portable) Reason For Exam: NG tube replaced;Line Placement RESULT: Chest Portable Chest Portable Reason: Line Placement; NG tube replaced; Clinical Question(s): Line Placement COMPARISON: Multiple priors, most recent 04/15/2021, FINDINGS: LINES AND TUBES: Single lead left subclavian pacer/defibrillator wire is intact. Enteric tube with the distal tip in the stomach. LUNGS AND PLEURA: Low lung volumes with mild basilar atelectasis, left greater than right, and pulmonary vascular crowding. Overall place improvement in aeration especially at the left base. No definite pleural effusion. No pneumothorax. HEART, MEDIASTINUM AND RAMON: Unchanged. BONES AND SOFT TISSUES: No acute abnormality. IMPRESSION: Slightly improved aeration with diminishing bibasilar atelectasis, left greater than right. I have personally reviewed the images and I agree with this report. WSN: [id number] Ordering Physician: Jakob Kang Dictated By: Rajesh Ravi DO Dictated Date/Time: 04/17/21 7:47 am Reviewed By: Vikash Matamoros MD Signed By: Vikash Matamoros MD Signed Date/Time: 04/17/21 7:52 am Transcribed By: MALAIKA Transcribed Date/Time: 04/17/21 7:43 am * Exam Date Time Procedure Performing Provider Status 04/15/21 11:38 PM Chest Portable Nilsa Shannon; Jamie h (Verified) Notes: (Chest Portable) Reason For Exam: Tube Placement RESULT: Chest Portable Chest Portable Reason: Tube Placement; Clinical Question(s): Tube Placement COMPARISON: 04/15/2021 at 7:12 PM FINDINGS: LINES AND TUBES: Single lead left subclavian pacer wire is intact. NG tube with tip and side-port in stomach. LUNGS AND PLEURA: Low lung volumes with mild basilar atelectasis. Lungs are otherwise clear with no consolidation. No pleural effusion. No pneumothorax. HEART, MEDIASTINUM AND RAMON: Mild prominence of the cardiac silhouette, unchanged. Normal upper mediastinal and hilar contour. BONES AND SOFT TISSUES: No acute abnormality. IMPRESSION: Well-positioned NG tube. WSN: [id number] Ordering Physician: Barry Ford Dictated By: Gabe Lambert MD Dictated Date/Time: 04/15/21 11:42 p Reviewed By: Gabe Lambert MD Signed By: Gabe Lambert MD Signed Date/Time: 04/15/21 11:42 pm Transcribed By: MALAIKA Transcribed Date/Time: 04/15/21 11:41 pm * Exam Date Time Procedure Performing Provider Status 04/15/21 7:29 PM Chest Portable Carlyle Perez; Jenny (Lawrence ified) Notes: (Chest Portable) Reason For Exam: Tube Placement RESULT: Chest Portable AP upright portable chest dated April 15, 2021 at 1912 hours. Comparison films are from 2020 and April 13, 2021. HISTORY: Tube placement. FINDINGS: The cardiac silhouette is increased in size and unchanged. A nasogastric tube extends into the left upper quadrant. A pacemaker/ICD is noted on the left. A single wire extends to overlie the heart. Once again, there is increased attenuation in the left mid and lower lung. This is improvedwhen compared with the previous study. Pulmonary vascular congestion has almost completely resolved. Degenerative changes are noted in the spine and shoulders. IMPRESSION: Improving aeration bilaterally. Nasogastric tube in place. Examination [id number]. Thank you for allowing me to participate in the care of this patient. WSN: [id number] Ordering Physician: Liza Marino Dictated By: Rd Cordoba MD Dictated Date/Time: 04/15/21 7:38 pm Reviewed By: Rd Cordoba MD Signed By: Rd Cordoba MD Signed Date/Time: 04/15/21 7:38 pm Transcribed By: MALAIKA Transcribed Date/Time: 04/15/21 7:32 pm * Exam Date Time Procedure Performing Provider Status 04/14/21 8:46 AM Chest Portable Mariana Maldonado ut (Verified) Notes: (Chest Portable) Reason For Exam: Tube Placement RESULT: Chest Portable Chest Portable Reason: Tube Placement; Clinical Question(s): Line Placement COMPARISON: 04/13/2021 FINDINGS: LINES AND TUBES: Single lead left subclavian pacer wire is intact. Right subclavian line lower SVC. Enteric tube within the stomach, sidehole not well seen. LUNGS AND PLEURA: Right lung is clear. Left basilar opacification not significantly changed. Small left effusion. Increased pulmonary vascularity and mild interstitial edema. No pneumothorax. HEART, MEDIASTINUM AND RAMON: Heart is normal in size. Normal upper mediastinal and hilar contour. BONES AND SOFT TISSUES: No acute abnormality. IMPRESSION: No significant change in mild interstitial edema and left basilar opacification with small effusion. Enteric tube terminates in the stomach, likely partially retracted when compared to prior examination. Sidehole not well seen. WSN: [id number] Ordering Physician: Tere Mccullough Dictated By: Pancho Augustine MD Dictated Date/Time: 04/14/21 9:55 am Reviewed By: Pancho Augustine MD Signed By: Pancho Augustine MD Signed Date/Time: 04/14/21 9:55 am Transcribed By: MALAIKA Transcribed Date/Time: 04/14/21 9:53 am * Exam Date Time Procedure Performing Provider Status 04/13/21 10:01 PM Chest Portable Nilsa Shannon; Aut h (Verified) Notes: (Chest Portable) Reason For Exam: Line Placement RESULT: Chest Portable Chest Portable INDICATION/CLINICAL QUESTION: Reason: Line Placement; TECHNIQUE: AP chest 2134 hours 04/13/2021. COMPARISON: Same day. FINDINGS: LINES AND TUBES: NG tube extends well into the stomach with tip not included on this exam. Internal defibrillator satisfactory. Right-sided central line with tip in superior vena cava.. LUNGS AND PLEURA: RIGHT CHEST: The lung is clear with no effusion or pneumothorax.. LEFT CHEST: Mild haziness in the midlung. Small amount of consolidation/effusion left base. HEART AND MEDIASTINAL CONTOURS: Stable mild cardiomegaly. Superior mediastinum normal.. BONES AND SOFT TISSUES: No acute abnormality.. IMPRESSION: 1. Lines and tubes satisfactory. 2. No right chest abnormality. 3. In the left chest there is no change in the small amount of consolidation/effusion at the base and there is a new small area of hazy opacity in the midlung. 3. Stable mild cardiomegaly. WSN: [id number] Ordering Physician: Dania Mcintosh Dictated By: Angel Billingsley MD Dictated Date/Time: 04/13/21 10:14 p Reviewed By: Angel Billingsley MD Signed By: Angel Billingsley MD Signed Date/Time: 04/13/21 10:14 pm Transcribed By: MALAIKA Transcribed Date/Time: 04/13/21 10:12 pm * Exam Date Time Procedure Performing Provider Status 04/13/21 5:47 PM Chest Portable Julisa Bowman; Aut h (Verified) Notes: (Chest Portable) Reason For Exam: Tube Placement RESULT: Chest Portable Chest Portable Reason: Tube Placement; Clinical Question(s): Tube Placement COMPARISON: 04/13/2021 FINDINGS: LINES AND TUBES: Single lead left subclavian pacer wire is intact. Enterogastric tube tip extends into the stomach below the left hemidiaphragm off the [id number]. LUNGS AND PLEURA: Low lung volumes with mild basilar atelectasis. Questionable small left pleural effusion. No pneumothorax. HEART, MEDIASTINUM AND RAMON: Moderate prominence of the cardiac silhouette. Normal upper mediastinal and hilar contour. BONES AND SOFT TISSUES: No acute abnormality. IMPRESSION: Enterogastric tube tip extends into the stomach. Cardiac enlargement and bibasilar atelectasis. Questionable small left effusion. WSN: [id number] Ordering Physician: Kayleen Quintanilla Dictated By: Gabe Lambert MD Dictated Date/Time: 04/13/21 5:51 pm Reviewed By: Gabe Lambert MD Signed By: Gabe Lambert MD Signed Date/Time: 04/13/21 5:51 pm Transcribed By: MALAIKA Transcribed Date/Time: 04/13/21 5:48 pm * Exam Date Time Procedure Performing Provider Status 04/13/21 11:38 AM Chest Portable Colby , Julisa; Au th (Verified) Notes: (Chest Portable) Reason For Exam: Tube Placement RESULT: Chest Portable Chest Portable Reason: Tube Placement; Clinical Question(s): Tube Placement COMPARISON: 04/09/2021. FINDINGS: LINES AND TUBES: Unchanged. LUNGS AND PLEURA: Further improvement in the bilateral ill-defined interstitial and alveolar infiltrates consistent with improving pulmonary edema. No pleural effusion. No pneumothorax. HEART, MEDIASTINUM AND RAMON: Mild cardiomegaly unchanged. Normal upper mediastinal and hilar contour. BONES AND SOFT TISSUES: No acute abnormality. IMPRESSION: Further improvement in the bilateral interstitial and alveolar infiltrates consistent with improving pulmonary edema. WSN: [id number] Ordering Physician: Kayleen Quintanilla Dictated By: Terrence Blue MD, V Dictated Date/Time: 04/13/21 4:13 pm Reviewed By: Terrence Blue MD, V Signed By: Terrence Blue MD, V Signed Date/Time: 04/13/21 4:13 pm Transcribed By: MALAIKA Transcribed Date/Time: 04/13/21 4:12 pm * Exam Date Time Procedure Performing Provider Status 04/09/21 11:38 AM Chest Portable Colby , Julisa; Au th (Verified) Notes: (Chest Portable) Reason For Exam: CHF RESULT: Chest Portable Chest Portable Reason: CHF; Clinical Question(s): CHF COMPARISON: 04/08/2021 FINDINGS: LINES AND TUBES: Endotracheal tube terminates mid trachea. Right subclavian line terminates in mid SVC. Nasogastric tube terminates in the stomach. A left-sided ICD is present with tip in the right ventricle. LUNGS AND PLEURA: Mild interstitial and alveolar edema and small layering effusions. Appearance of the lungs is improved. No pneumothorax. HEART, MEDIASTINUM AND RAMON: Heart is normal in size. Normal upper mediastinal and hilar contour. BONES AND SOFT TISSUES: No acute abnormality. IMPRESSION: Decreased acute CHF since prior. Small layering effusions. WSN: [id number] Ordering Physician: Choco Reyes Dictated By: Renea Adhikari MD Dictated Date/Time: 04/09/21 2:28 pm Reviewed By: Renea Adhikari MD Signed By: Renea Adhikari MD Signed Date/Time: 04/09/21 2:28 pm Transcribed By: MALAIKA Transcribed Date/Time: 04/09/21 2:26 pm Vital Signs Most recent to oldest [Reference Range]: 1 2 3 Weight 100.4 kg (04/26/21 5:36 AM) 100.4 kg (04/25/21 5:41 AM) 101.2 kg (04/24/21 5:27 AM) Oxygen Saturation [94-100 %] 99 % (04/26/21 10:50 AM) 100 % (04/26/21 8:00 AM) 99 % (04/26/21 5:02 AM) Pulse Rate [55-90 bpm] 80 bpm (04/26/21 10:50 AM) 100 bpm *H* (04/26/21 8:43 AM) 57 bpm (04/26/21 8:00 AM) Blood Pressure [90-138/55-84 mm Hg] 129/85mm Hg (04/26/21 10:50 AM) 147/83mm Hg *H* (04/26/21 8:44 AM) 147/83mm Hg *H* (04/26/21 8:43 AM) Respiratory Rate [16-30 br/min] 18 br/min (04/26/21 10:50 AM) 16 br/min (04/26/21 8:00 AM) 20 br/min (04/26/21 5:02 AM) Temperature [96.8-100.4 DegF] 98.7 DegF (04/26/21 10:50 AM) 97.3 DegF (04/26/21 8:00 AM) 98 DegF (04/26/21 5:02 AM) Liters per Minute 0 L/min (04/26/21 10:50 AM) 0 L/min (04/26/21 8:00 AM) 0 L/min (04/23/21 3:29 PM) Mode of Delivery (Oxygen) Room air (04/26/21 10:50 AM) Room air (04/26/21 8:00 AM) Room air (04/26/21 5:02 AM) Blood pressure sites Arm, left (04/26/21 10:50 AM) Arm, left (04/26/21 8:00 AM) Arm, left (04/26/21 5:02 AM) Temperature Route Temporal (04/26/21 10:50 AM) Temporal (04/26/21 8:00 AM) Oral (04/26/21 5:02 AM) Weight Obtained Via Bed scale (04/17/21 4:18 AM) Bed scale (04/11/21 6:02 AM) Bed scale (04/09/21 8:00 AM)
--- OUTSIDE RECORDS SUMMARY | 2023-06-19 04:56 | XMS_ITS | Continuity of Care Document ---
Author Name Unknown Organization [facility] Address [address] [place] [address]- Care Team Providers Care Physical Medicine Teacher Name Role Phone Dayanna RAZA, Jessica Bourgeois Primary Care Physician Encounter [facility] [place] Date(s): 08/09/20 - 12/07/20 [facility] [address] [place], [place] [address] Attending Physician: Bertram Painting MD Admitting Physician: Bertram Painting MD Referring Physician: Jessica Alan MD Allergies, Adverse Reactions, Alerts Substance Reaction [...] 03/25/20 11:03:00 EST, Route to Pharmacy Electronically, [facility], Partial fill upon patient request, 168, cm, 03/25/20 7:33:00 EST, Heig... Start Date: 03/25/20 Status: Ordered Problem List Condition Effective Dates Status Health Status Inform ant Bradycardia(Confirmed) Active
--- OUTSIDE RECORDS SUMMARY | 2023-06-19 04:56 | XMS_ITS | Continuity of Care Document ---
Author Name Unknown Organization [facility] Address [address] [place] [address]- Care Team Providers Care Wood Crew Supervisor Name Role Phone Dayanna RAZA, Jessica Bourgeois Primary Care Physician Encounter [facility] [place] Date(s): 10/06/20 - 11/05/20 [facility] [address] [place], [place] [address] Allergies, Adverse Reactions, Alerts Substance Reaction [...] 03/25/20 11:03:00 EST, Route to Pharmacy Electronically, [facility], Partial fill upon patient request, 168, cm, 03/25/20 7:33:00 EST, Heig... Start Date: 03/25/20 Status: Ordered Problem List Condition Effective Dates Status Health Status Inform ant Bradycardia(Confirmed) Active
--- OUTSIDE RECORDS SUMMARY | 2023-06-19 04:56 | XMS_ITS | Continuity of Care Document ---
Author Name Unknown Organization [facility] Address [address] [place] [address]- Care Team Providers Care Graphic Pre Press Trades Worker Name Role Phone Dayanna RAZA, Jessica Bourgeois Primary Care Physician Encounter [facility] [place] Date(s): 11/07/20 - 12/07/20 [facility] [address] [place] [id number] Attending Physician: Rachelle Vincent Admitting Physician: AdmRachelle freeman Referring Physician: AdmtrRachelle Allergies, Adverse Reactions, Alerts Substance Reaction Severity [...] 03/25/20 11:03:00 EST, Route to Pharmacy Electronically, [facility], Partial fill upon patient request, 168, cm, 03/25/20 7:33:00 EST, Heig... Start Date: 03/25/20 Status: Ordered Problem List Condition Effective Dates Status Health Status Inform ant Bradycardia(Confirmed) Active
--- OUTSIDE RECORDS SUMMARY | 2023-06-19 04:56 | XMS_ITS | Continuity of Care Document ---
Author Name Unknown Organization [facility] ter Address [address] [place] [address]- Care Team Providers Care Gunner'S Mate Name Role Phone Jessica Alan MD Primary Care Physician Encounter [facility] [place] Date(s): 10/03/20 - 10/03/[address] [address]- Discharge Disposition: A-D/C Walkout Attending Physician: Not on Staff, Attending MD Admitting Physician: Not on Staff, Admitting MD Referring Physician: Not on Staff, Referring MD [...] 03/25/20 11:03:00 EST, Route to Pharmacy Electronically, [facility], Partial fill upon patient request, 168, cm, 03/25/20 7:33:00 EST, Heig... Start Date: 03/25/20 Status: Ordered Problem List Condition Effective Dates Status Health Status Inform ant Bradycardia(Confirmed) Active Results Radiology Reports * Exam Date Time Procedure Performing Provider Status 10/03/20 7:20 AM Chest 2 Views Frontal and Lat Bridget Dale; Jenny (Verified) Notes: (Chest 2 Views Frontal and Lat) Reason For Exam: Chest Pain;Other: RESULT: Chest 2 Views Frontal and Lat Examination: Chest performed on 10/03/2020. History: Shortness of breath. Findings: Frontal and lateral views of the chest are compared to a prior study dated 09/16/2020. AICD is noted. The cardiac and mediastinal silhouettes are within normal limits. The lungs are clear. The osseous and soft tissue structures are unremarkable. Impression: There is no acute cardiopulmonary disease. WSN: [id number] Ordering Physician: Iris Buchanan Dictated By: Chio Toussaint MD Dictated Date/Time: 10/03/20 8:04 am Reviewed By: Chio Toussaint MD Signed By: Chio Toussaint MD Signed Date/Time: 10/03/20 8:04 am Transcribed By: MALAIKA Transcribed Date/Time: 10/03/20 8:03 am Vital Signs Most recent to oldest [Reference Range]: 1 2 3 Oxygen Saturation [94-100 %] 100 % (10/03/20 9:46 AM) 100 % (10/03/20 6:04 AM) 100 % (10/03/20 5:54 AM) Pulse Rate [55-90 bpm] 78 bpm (10/03/20 9:46 AM) 75 bpm (10/03/20 6:04 AM) 81 bpm (10/03/20 5:54 AM) Blood Pressure [90-138/55-84 mm Hg] 155/109mm Hg *H* (10/03/20 9:46 AM) 171/106mm Hg *H* (10/03/20 6:04 AM) Respiratory Rate [16-30 br/min] 20 br/min (10/03/20 9:46 AM) 18 br/min (10/03/20 6:04 AM) Temperature [96.8-100.4 DegF] 98.5 DegF (10/03/20 9:46 AM) 97.4 DegF (10/03/20 6:04 AM) Mode of Delivery (Oxygen) Room air (10/03/20 9:46 AM) Room air (10/03/20 6:04 AM) Blood pressure sites Arm, right (10/03/20 6:04 AM) Temperature Route Oral (10/03/20 9:46 AM) Oral (10/03/20 6:04 AM)
--- OUTSIDE RECORDS SUMMARY | 2023-06-19 04:56 | XMS_ITS | Continuity of Care Document ---
Author Name Unknown Organization [facility] Address [address] [place] [address]- Care Team Providers Care Manager Room Name Role Phone Dayanna RAZA, Jessica Bourgeois Primary Care Physician Encounter [facility] [place] Date(s): 04/05/20 - 05/05/20 [facility] [address] [place], [place] [address] Allergies, Adverse Reactions, Alerts Substance Reaction Severity Status NKA Active Medications Coreg 6.25 mg oral tablet 6.25 mg, 1, tablet, By Mouth, 2 times a day, # 60 tablet, Refills 0, Tot. Refills 0, Maintenance, 03/25/20 11:03:00 EST, Route to Pharmacy Electronically, [facility], Partial fill upon patient request, 168, cm, 03/25/20 7:33:00 EST, Tylerig... Start Date: 03/25/20 Status: Ordered Problem List Condition Effective Dates Status Health Status Inform ant Bradycardia(Confirmed) Active
--- OUTSIDE RECORDS SUMMARY | 2023-06-19 04:56 | XMS_ITS | Continuity of Care Document ---
Author Name Unknown Organization [facility] Address [address] [place] [address]- Care Team Providers Care Global Mobility Specialist Name Role Phone Dayanna RAZA, Jessica Bourgeois Primary Care Physician Encounter [facility] [place] Date(s): 06/18/20 - 07/18/20 [facility] [address] [place] [address]- Attending Physician: Rachelle Vincent Admitting Physician: Admtr, Rachelle Referring Physician: Admtr, Ar8 Allergies, Adverse Reactions, Alerts Substance Reaction Severity [...] 03/25/20 11:03:00 EST, Route to Pharmacy Electronically, [facility], Partial fill upon patient request, 168, cm, 03/25/20 7:33:00 EST, Heig... Start Date: 03/25/20 Status: Ordered Problem List Condition Effective Dates Status Health Status Inform ant Bradycardia(Confirmed) Active
--- OUTSIDE RECORDS SUMMARY | 2023-06-19 04:56 | XMS_ITS | Continuity of Care Document ---
Author Name Unknown Organization [facility] Address [address] [place] [address]- Care Team Providers Care Packaging Tech Name Role Phone Dayanna RAZA, Jessica Bourgeois Primary Care Physician [place] [facility] [place] 10/04/20 - 11/03/20 [facility] [address] [place], [place] [address] Allergies, Adverse Reactions, Alerts Substance Reaction [...] 03/25/20 11:03:00 EST, Route to Pharmacy Electronically, [facility], Partial fill upon patient request, 168, cm, 03/25/20 7:33:00 EST, Heig... Start Date: 03/25/20 Status: Ordered Problem List Condition Effective Dates Status Health Status Inform ant Bradycardia(Confirmed) Active
--- OUTSIDE RECORDS SUMMARY | 2023-06-19 04:56 | XMS_ITS | Continuity of Care Document ---
Author Name Unknown Organization [facility] Address [address] [place] [address]- Care Team Providers Care Check Scaler Name Role Phone Dayanna RAZA, Jessica Bourgeois Primary Care Physician Encounter [facility] [place] Date(s): 08/03/20 - 09/02/20 [facility] [address] [place], [place] [address] Allergies, Adverse Reactions, Alerts Substance Reaction Severity [...] 03/25/20 11:03:00 EST, Route to Pharmacy Electronically, [facility], Partial fill upon patient request, 168, cm, 03/25/20 7:33:00 EST, Heig... Start Date: 03/25/20 Status: Ordered Problem List Condition Effective Dates Status Health Status Inform ant Bradycardia(Confirmed) Active
--- OUTSIDE RECORDS SUMMARY | 2023-06-19 04:56 | XMS_ITS | Continuity of Care Document ---
Author Name Unknown Organization [facility] Address [address] [place] [address]- Care Team Providers Care Feeder Loader Name Role Phone Dayanna RAZA, Jessica Bourgeois Primary Care Physician Encounter [facility] [place] Date(s): 06/20/20 - 07/20/20 [facility] [address] [place], [place] [address] Attending Physician: Rachelle Vincent Admitting Physician: Rachelle Vincent Referring Physician: AdmtrRachelle Allergies, Adverse Reactions, Alerts [...] 03/25/20 11:03:00 EST, Route to Pharmacy Electronically, [facility], Partial fill upon patient request, 168, cm, 03/25/20 7:33:00 EST, Heig... Start Date: 03/25/20 Status: Ordered Problem List Condition Effective Dates Status Health Status Inform ant Bradycardia(Confirmed) Active
--- OUTSIDE RECORDS SUMMARY | 2023-06-19 04:56 | XMS_ITS | Continuity of Care Document ---
Author Name Unknown Organization [facility] Address Unknown Care Team Providers Care Pot Filler Name Role Phone Dayanna RAZA, Jessica Bourgeois Primary Care Physician [id number] Date(s): 05/31/21 - 06/07/21 [facility] Attending Physician: Jennifer Meza MD, Kinsey Allergies, Adverse Reactions, Alerts No Known Allergies Immunizations Given and Recorded Vaccine Date Status Refusal Reason SARS-CoV-2 (COVID-19) mRNA BNT-162b2 vac 07/25/20 Recorded SARS-CoV-2 (COVID-19) mRNA BNT-162b2 vac 07/04/20 Recorded influenza virus vaccine, inactivated 05/07/19 Kit rded influenza virus vaccine, inactivated 07/16/15 Kit rded pneumococcal 23-valent vaccine 07/16/15 Recorded Medications Ambien 5 mg oral tablet 1 tablet = 5 mg, By Mouth, Daily at bedtime, PRN as needed for insomnia, 0 Refills, Maintenance, 05/10/21 14:33:00 EST, Tablet, Partial fill upon patient request if the prescription is for a scheduleII opioid drug. Start Date: 05/10/21 Status: Ordered apixaban = 5 mg, By Mouth, 2 times a day, 0 Refills, Maintenance, 05/12/21 13:23:00 EST, Tablet, Partial fill upon patient request if the prescription is for a schedule II opioid drug. Start Date: 05/12/21 Status: Ordered aspirin 81 mg oral tablet, chewable 81 [...] opioid drug. Start Date: 04/09/21 Status: Ordered cholecalciferol 1000 intl units oral tablet 1 tablet = 25 mcg, By Mouth, Daily, 0 Refills, Maintenance, 05/10/21 4:25:00 EST, Partial fill uponpatient request if the prescription is for a schedule II opioid drug. Start Date: 05/10/21 Status: Ordered Coreg 6.25 mg oral tablet 6.25 mg, 1, tablet, By Mouth, 2 times a day, Refills 0, Maintenance, 05/12/21 13:23:00 EST, Partialfill upon patient request if the prescription is for a schedule II opioid drug. Start Date: 05/12/21 Status: Ordered famotidine 20 mg oral tablet 20 mg, 1, tablet, By Mouth, Daily, # 30 tablet, Refills 0, Maintenance, 04/26/21 13:46:00 EST, Partial fill upon patient request if the prescription is for a schedule II opioid drug. Start Date: 04/26/21 Status: Ordered melatonin 3 mg oral tablet = 3 mg, By Mouth, Daily at bedtime, PRN Insomnia, 0 Refills, Maintenance, 05/12/21 13:24:00 EST, Tablet, Partial fill upon patient request if the prescription is for a schedule II opioid drug. Start Date: 05/12/21 Status: Ordered PROzac 20 mg oral capsule 20 mg, 1, capsule, By Mouth, Daily, Refills 0, Maintenance, 04/26/21 13:50:00 EST, Partial fill upon patient request if the prescription is for a schedule II opioid drug. Start Date: 04/26/21 Status: Ordered Problem List Condition Effective Dates Status Health Status Inform ant Bradycardia(Confirmed) Active
--- OUTSIDE RECORDS SUMMARY | 2023-06-19 04:56 | XMS_ITS | Continuity of Care Document ---
Author Name Unknown Organization [facility] Address [address] [place] [address]- Care Team Providers Care Venue Attendant Name Role Phone Dayanna RAZA, Jessica Bourgeois Primary Care Physician En[place] [facility] [place] Date(s): 10/10/20 - 11/25/20 [facility] [address] [place], [place] [address] Attending Physician: Efe Chávez MD Admitting Physician: Efe Chávez MD Referring Physician: Jessica Alan MD Allergies, [...] 03/25/20 11:03:00 EST, Route to Pharmacy Electronically, [facility], Partial fill upon patient request, 168, cm, 03/25/20 7:33:00 EST, Heig... Start Date: 03/25/20 Status: Ordered Problem List Condition Effective Dates Status Health Status Inform ant Bradycardia(Confirmed) Active
--- OUTSIDE RECORDS SUMMARY | 2023-06-19 04:56 | XMS_ITS | Continuity of Care Document ---
Author Name Unknown Organization [facility] Address Unknown Care Team Providers Care Rotor Blade Installer Name Role Phone Dayanna RAZA, Jessica Bourgeois Primary Care Physician [place] [facility] [place] Date(s): 05/31/21 - 06/30/21 [facility] Attending Physician: Rachelle Vincent Admitting Physician: Rachelle Vincent Referring Physician: Rachelle Vincent Allergies, Adverse Reactions, Alerts No Known Allergies [...]
--- OUTSIDE RECORDS SUMMARY | 2023-06-19 04:56 | XMS_ITS | Continuity of Care Document ---
Author Name Unknown Organization [facility] Address [address] [place] [address]- Care Team Providers Care Industrial Twisting Machine Operator Name Role Phone Dayanna RAZA, Jessica Bourgeois Primary Care Physician [place] [facility] [place] 04/17/20 - 05/17/20 [facility] [address] [place], [place] [address] Attending Physician: Rcahelle Vincent Admitting Physician: Rachelle Vincent Referring Physician: AdmtrRachelle Allergies, Adverse Reactions, Alerts Substance Reaction Severity Status NKA Active Medications Coreg 6.25 mg oral tablet 6.25 mg, 1, tablet, By Mouth, 2 times a day, # 60 tablet, Refills 0, Tot. Refills 0, Maintenance, 03/25/20 11:03:00 EST, Route to Pharmacy Electronically, [facility], Partial fill upon patient request, 168, cm, 03/25/20 7:33:00 EST, Tylerig... Start Date: 03/25/20 Status: Ordered Problem List Condition Effective Dates Status Health Status Inform ant Bradycardia(Confirmed) Active
--- OUTSIDE RECORDS SUMMARY | 2023-06-19 04:56 | XMS_ITS | Continuity of Care Document ---
Author Name Unknown Organization [facility] ter Address [address] [place] [address]- Care Team Providers Care Kennel Supervisor Name Role Phone Shanique RAZA, Alida Mauro Primary Care Physician En[place] [facility] [place] Date(s): 05/10/21 - 05/12/[address] [address]- Encounter Diagnosis DOT (acute kidney injury)(Final) - 05/10/21 Discharge Disposition: A-D/C Home Attending Physician: Neil Gonzalez MD Admitting Physician: Florentino Washburn MD Referring Physician: Not on Staff, Referring MD Allergies, Adverse Reactions, Alerts No Known Allergies [...] opioid drug. Start Date: 05/12/21 Status: Ordered Coreg 6.25 mg oral tablet 6.25 mg, Tablet, By Mouth, 05/12/21 9:00:00 EST Start Date: 05/12/21 Stop Date: 05/12/21 Status: Completed famotidine 20 mg oral tablet 20 mg, [...] Status Health Status Inform ant Bradycardia(Confirmed) Active Vital Signs Most recent to oldest [Reference Range]: 1 2 3 Weight 93.2 kg (05/12/21 6:34 AM) 92.0 kg (05/11/21 6:00 AM) 91.1 kg (05/10/21 7:47 AM) Oxygen Saturation [94-100 %] 98 % (05/12/21 11:52 AM) 100 % (05/12/21 7:49 AM) 99 % (05/12/21 4:16 AM) Pulse Rate [55-90 bpm] 75 bpm (05/12/21 11:52 AM) 100 bpm *H* (05/12/21 9:59 AM) 60 bpm (05/12/21 7:49 AM) Blood Pressure [90-138/55-84 mm Hg] 124/75mm Hg (05/12/21 11:52 AM) 119/76mm Hg (05/12/21 9:59 AM) 119/76mm Hg (05/12/21 7:49 AM) Respiratory Rate [16-30 br/min] 18 br/min (05/12/21 11:52 AM) 16 br/min (05/12/21 7:49 AM) 18 br/min (05/12/21 4:16 AM) Temperature [96.8-100.4 DegF] 98.3 DegF (05/12/21 11:52 AM) 98.2 DegF (05/12/21 7:49 AM) 97.5 DegF (05/12/21 4:16 AM) Mode of Delivery (Oxygen) Room air (05/12/21 11:52 AM) Room air (05/12/21 7:49 AM) Room air (05/12/21 4:16 AM) Blood pressure sites Arm, left (05/12/21 4:16 AM) Arm, left (05/11/21 11:30 PM) Arm, left (05/11/21 7:49 PM) Temperature Route Oral (05/12/21 11:52 AM) Oral (05/12/21 7:49 AM) Oral (05/12/21 4:16 AM) Dry Weight 91.9 kg (05/10/21 3:58 AM) Weight Obtained Via Bed scale (05/12/21 6:34 AM) Bed scale (05/11/21 6:00 AM) Bed scale (05/10/21 7:47 AM)
--- OUTSIDE RECORDS SUMMARY | 2023-06-19 04:56 | XMS_ITS | Continuity of Care Document ---
Author Name Unknown Organization [facility] ter Address [address] [place] [address]- Care Team Providers Care Director Of Investigations Name Role Phone Dayanna RAZA, Jessica Bourgeois Primary Care Physician [place] [facility] [place] Date(s): 06/06/20 - 06/06/[address] [address] Discharge Disposition: A-D/C Home Attending Physician: Jorge Miguel MD Admitting Physician: Jorge Miguel MD Referring Physician: Jorge Miguel MD Allergies, Adverse Reactions, Alerts Substance Reaction Severity Status NKA Active Medications amLODIPine 10 mg oral tablet 10 mg, 1, tablet, By Mouth, Daily, # 90 tablet, Refills 0, Maintenance, 06/06/20 6:23:00 EST, Partial fill upon patient request if the prescription is for a schedule II opioid drug. Start Date: 06/06/20 Status: Ordered amLODIPine 10 mg oral tablet 10 mg, Tablet, By Mouth, Once, SHAE, 06/06/20 15:16:00 EST, Stop date 06/06/20 15:16:00 EST Start Date: 06/06/20 Stop Date: 06/06/20 Status: Completed Coreg 6.25 mg oral tablet 6.25 mg, 1, tablet, By Mouth, 2 times a day, # 60 tablet, Refills 0, Tot. Refills 0, Maintenance, 03/25/20 11:03:00 EST, Route to Pharmacy Electronically, [facility], Partial fill upon patient request, 168, cm, 03/25/20 7:33:00 EST, Heig... Start Date: 03/25/20 Status: Ordered Keflex monohydrate 500 mg oral capsule 1 capsule = 500 mg, By Mouth, Every 12 hours, for 5 days, # 10 capsule, 0 Refills, Acute 06/11/20 10:48:00 EST, 06/06/20 10:48:00 EST, Capsule, [facility], Partial fill upon patient request if the prescription is for a schedule II opioid... Start Date: 06/06/20 Stop Date: 06/11/20 Status: Ordered Problem List Condition Effective Dates Status Health Status Inform ant Bradycardia(Confirmed) Active Results Radiology Reports * Exam Date Time Procedure Performing Provider Status 06/06/20 2:12 PM Chest 2 Views Frontal and Lat Abi Sevilla; Auth (Verified) Notes: (Chest 2 Views Frontal and Lat) Reason For Exam: Postop RESULT: Chest 2 Views Frontal and Lat Chest 2 Views Frontal and Lat Reason: Postop; Clinical Question(s): Line Placement; Pneumothorax; Special Instructions: Patient may go unmonitored. Please keep film at back desk COMPARISON: 03/23/2020 FINDINGS: LINES AND TUBES: Single lead left subclavian pacer wire is intact. LUNGS AND PLEURA: Clear lungs. Normal pulmonary vascularity. No pleural effusion. No pneumothorax. HEART, MEDIASTINUM AND RAMON: Heart is normal in size. Normal upper mediastinal and hilar contour. BONES AND SOFT TISSUES: No acute abnormality. IMPRESSION: No acute abnormality. WSN: [id number] Ordering Physician: Dmitry Mathur Dictated By: Kj Figueroa MD Dictated Date/Time: 06/06/20 2:17 pm Reviewed By: Kj Figueroa MD Signed By: Kj Figueroa MD Signed Date/Time: 06/06/20 2:17 pm Transcribed By: MALAIKA Transcribed Date/Time: 06/06/20 2:14 pm Vital Signs Most recent to oldest [Reference Range]: 1 2 3 Height 168 cm (06/06/20 4:21 PM) 168 cm (06/06/20 2:39 PM) 168 cm (06/06/20 2:37 PM) Weight 111 kg (06/06/20 6:28 AM) 111 kg (06/06/20 6:25 AM) Oxygen Saturation [94-100 %] 97 % (06/06/20 4:21 PM) 99 % (06/06/20 2:37 PM) 98 % (06/06/20 12:34 PM) Pulse Rate [55-90 bpm] 74 bpm (06/06/20 4:21 PM) 73 bpm (06/06/20 2:37 PM) 66 bpm (06/06/20 12:34 PM) Blood Pressure [90-138/55-84 mm Hg] 173/84mm Hg *H* (06/06/20 4:21 PM) 175/92mm Hg *H* (06/06/20 3:28 PM) 175/92mm Hg *H* (06/06/20 2:39 PM) Respiratory Rate [16-30 br/min] 20 br/min (06/06/20 4:21 PM) 20 br/min (06/06/20 2:37 PM) 20 br/min (06/06/20 12:34 PM) Temperature [96.8-100.4 DegF] 97.6 DegF (06/06/20 4:21 PM) 98.2 DegF (06/06/20 2:37 PM) 97.9 DegF (06/06/20 12:34 PM) Mode of Delivery (Oxygen) Room air (06/06/20 4:21 PM) Room air (06/06/20 2:37 PM) Room air (06/06/20 12:34 PM) Blood pressure sites Arm, right (06/06/20 4:21 PM) Arm, right (06/06/20 2:39 PM) Arm, right (06/06/20 1:42 PM) Temperature Route Temporal (06/06/20 4:21 PM) Oral (06/06/20 2:37 PM) Oral (06/06/20 12:34 PM) Dry Weight 111 kg (06/06/20 6:28 AM)
--- OUTSIDE RECORDS SUMMARY | 2023-06-19 04:56 | XMS_ITS | Continuity of Care Document ---
Author Name Unknown Organization [facility] Address [address] [place] [address]- Care Team Providers Care Title Inspector Name Role Phone Jessica Alan MD Primary Care Physician En[place] [facility] [place] Date(s): 06/18/20 - 07/18/20 [facility] [address] [place] [address]- Attending Physician: Jt Sierra MD Referring Physician: Jessica Alan MD Allergies, [...] 03/25/20 11:03:00 EST, Route to Pharmacy Electronically, [facility], Partial fill upon patient request, 168, cm, 03/25/20 7:33:00 EST, Heig... Start Date: 03/25/20 Status: Ordered Problem List Condition Effective Dates Status Health Status Inform ant Bradycardia(Confirmed) Active
--- OUTSIDE RECORDS SUMMARY | 2023-06-19 04:56 | XMS_ITS | Continuity of Care Document ---
Author Name Unknown Organization [facility] Address [address] [place] [address]- Care Team Providers Care Commercial Lines Account Manager Name Role Phone Dayanna RAZA, Jessica Bourgeois Primary Care Physician [place] [facility] [place] 10[place] - 11/25/20 [facility] [address] [place] [id number] Attending Physician: Rachelle Vincent Admitting Physician: AdmRachelle freeman Referring Physician: Admtr ArAdams Allergies, Adverse Reactions, Alerts Substance Reaction Severity [...] 03/25/20 11:03:00 EST, Route to Pharmacy Electronically, [facility], Partial fill upon patient request, 168, cm, 03/25/20 7:33:00 EST, Heig... Start Date: 03/25/20 Status: Ordered Problem List Condition Effective Dates Status Health Status Inform ant Bradycardia(Confirmed) Active
--- OUTSIDE RECORDS SUMMARY | 2023-06-19 04:56 | XMS_ITS | Continuity of Care Document ---
Author Name Unknown Organization [facility] Address [address] [place] [address]- Care Team Providers Care Paver Installer Name Role Phone Jessica Alan MD Primary Care Physician [place] [facility] [place] - 05/17/20 [facility] [address] [place], [place] [address] Attending Physician: Jorge Miguel MD Admitting Physician: Jorge Miguel MD Referring Physician: Jessica Alan MD Allergies, Adverse Reactions, Alerts Substance Reaction Severity Status NKA Active Medications Coreg 6.25 mg oral tablet 6.25 mg, 1, tablet, By Mouth, 2 times a day, # 60 tablet, Refills 0, Tot. Refills 0, Maintenance, 03/25/20 11:03:00 EST, Route to Pharmacy Electronically, [facility], Partial fill upon patient request, 168, cm, 03/25/20 7:33:00 EST, Karissa... Start Date: 03/25/20 Status: Ordered Problem List Condition Effective Dates Status Health Status Inform ant Bradycardia(Confirmed) Active
[2023-06-19 05:33] LABS: COVID-19 Test Positive (Negative); IDNOW Serial# 152EDE1D
[2023-06-19 05:42] LABS: IDNOW Serial# 08D9AD1C; Influenza A Negative (Negative); Influenza B2 Negative (Negative)
--- NOTE | 2023-06-19 06:50 | ED.URI ---
HPI - URI/Sore Throat General Chief Complaint: Upper Respiratory Symptoms Stated Complaint: COVID LIKE SYMTOMS Time Seen by Provider: 06/19/23 06:38 Source: patient, family () and EMS Mode of arrival: EMS Limitations: other (prior CVA) History of Present Illness HPI Narrative: 62 year old male with pmhx significant for CKD, nonischemic cardiomyopathy, PAF, CHF, PAC, cardiac defibrilator, DOT, CVA, HTN and behavior disturbance presents to the ED today via EMS from home for evaluation of headache, myalgias, fever (TMAX 102), and dry cough that began yesterday. All history obtained from EMS along with patient's who is at bedside. Per , patient began complaining of headache and dry cough yesterday. Temporal temp was noted to be 102.5F at home for which she has been giving patient tylenol. Last dose prior to arrival in ED. Cough has been nonproductive of sputum. He tested positive for COVID at home. EMS was called and patient was transferred to ED. In ED he denies vision changes, weakness, sore throat, chest pain, sputum production, sob, wheezing, or dyspnea, abd pain, N/V, diarrhea. MD elicited complaint: fever and cough Related Data Home Medications Medication Instructions Recorded Confirmed apixaban 5 mg tablet (Eliquis) 5 mg PO BID 07/02/21 06/20/23 atorvastatin 80 mg tablet 80 mg PO BEDTIME 07/02/21 06/20/23 cholecalciferol (vitamin D3) 25 25 mcg PO DAILY 01/28/22 06/20/23 mcg (1,000 unit) tablet acetaminophen 500 mg capsule 1,000 mg PO Q4H PRN fever or pain 06/20/23 06/20/23 aspirin 81 mg tablet,delayed 81 mg PO DAILY 06/20/23 06/20/23 release benzonatate 100 mg capsule 100 mg PO TID PRN Cough 06/20/23 06/20/23 carvedilol 25 mg tablet 25 mg PO BID 06/20/23 06/20/23 clonazepam 1 mg tablet 1 mg PO Q20M PRN Seizure Activity 06/20/23 06/20/23 levothyroxine 75 mcg tablet 75 mcg PO DAILY@0600 06/20/23 06/20/23 methyl salicylate 15 %-menthol 10 1 appl topical 5XD PRN Muscle Pain 06/20/23 06/20/23 % topical cream mirtazapine 15 mg tablet 15 mg PO BEDTIME 06/20/23 06/20/23 Previous Rx's Medication Instructions Recorded bumetanide 1 mg tablet 1 mg PO DAILY #30 tabs 01/30/22 sacubitril 97 mg-valsartan 103 mg 1 tab PO BID #100 tabs 11/04/22 tablet amiodarone 200 mg tablet 200 mg PO DAILY #90 tabs 03/24/23 divalproex 500 mg tablet,extended 500 mg PO BID #60 tabs 06/03/23 release 24 hr (Depakote ER) levetiracetam 500 mg tablet 500 mg PO BID #60 tabs 06/03/23 pyridoxine (vitamin B6) 100 mg 100 mg PO BID #60 tabs 06/03/23 tablet (Vitamin B-6) Allergies Allergy/AdvReac Type Severity Reaction Status Date / Time No Known Allergies Allergy Verified 05/29/23 09:52 [No Known Allergies*] Review of Systems Review of Systems: Constitutional: +fever, No chills, fatigue, night sweats, weight changes ENT/Mouth: No ear pain, hearing loss, nasal congestion, sinus pain, rhinorrhea, sore throat Eyes: No eye pain, swelling, redness, vision changes, discharge Cardio: No chest pain, palpitations, COREA, orthopnea, peripheral edema Pulm: No SOB, +cough, No sputum, wheezing, dyspnea, hemoptysis GI: No nausea, vomiting, hematemesis, abdominal pain, diarrhea, constipation, hematochezia, melena : No irregular bleeding, dysuria, frequency, urgency, hesitancy, hematuria, flank pain, urinary flow changes, urinary incontinence or retention MSK: No back pain, neck pain, joint pain, +myalgias Skin: No lesions, rashes Neuro: No weakness, numbness, paresthesias, LOC, dizziness, +headache Psych: No anxiety/panic, depression, SI/HI, AH/VH All other systems reviewed and are negative. [facility] Past Medical History Attestation statement: The following information was validated with the patient. Source: unable to obtain and obtained from family Medical History Behavior disturbance Seizure as late effect of cerebrovascular accident (CVA) Restrictive lung disease Uncontrolled hypertension Acute decompensated heart failure Cerebrovascular accident CVA (cerebral vascular accident) Atrial fibrillation with rapid ventricular response Persistent atrial fibrillation Chronic systolic heart failure Gallstones CHF (congestive heart failure) Embolism of kidney CKD (chronic kidney disease), stage II Cardiac defibrillator in place NSVT (nonsustained ventricular tachycardia) NICM (nonischemic cardiomyopathy) Renal infarct Hypertension Surgical History History of cardiac defibrillator placement Family History Family History Other CAD (coronary artery disease) Social History Social History Household Members: Unknown / Unable to assess Housing: Unknown / Unable to assess Do you presently have visiting nurse or other home services: No Unable to assess alcohol history related to: Unknown Alcohol intake: never 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 Tobacco Use Status: Never used Tobacco Smoked in Last 30 Days: No Use of substances other than those prescribed or required for medical reasons: No Advance Directives: Yes Advance Directives on File: Yes Advance Directives Date on File: 10/18/20 service: Yes Current occupational status: employed Physical Exam Vital Signs: Vital Signs: Last Vital Signs Temp 98.5 F 06/19/23 10:24 Pulse 62 06/19/23 10:24 Resp 15 06/19/23 10:24 BP 124/64 06/19/23 10:24 Pulse Ox 97 06/19/23 10:24 O2 Del Method Room Air 06/19/23 10:24 BMI result Body Mass Index 32.0 Const: General: cooperative, comfortable and no acute distress Orientation/consciousness: patient oriented x3 Limitations: no limitations HEENT: Head: Yes normal to inspection Neck: Neck: Yes normal visual inspection Resp: Other: + minimal crackles to right lung base Effort & Inspection: normal respiratory effort Cardio: Rate: regular rate Rhythm: regular rhythm GI: Palpation (GI): Soft to palpation and nontender Skin: General skin exam: no rashes or lesions noted Neuro: General: patient oriented x3 and Unable to assess gait Gait exam (Neuro): Unable to assess gait Course Course Course Narrative: Patient's vitals have remained stable throughout visit. He is afebrile and well appearing. Not hypoxic. He is lying comfortably in bed, having lunch with his . CXR has been read unremarkable. I do appreciate what looks to be early consolidations however it is difficult to decipher if this is a true pneumonia with one view xr. There are minimal crackles noted to the right lung base. BNP is around 140 however I do not feel as though patient is fluid overloaded or is in acute congestive heart failure at this time compared to prior labs. There is no perpheral edema. As patient is s/p CVA and difficult to communicate with, I had a discussion with regarding keeping patient in ED for PT/CM evaluation. She is declining at this time and would like to care for patient at home. Patient present for discussion and is in agreement with this. I discussed worrisome signs and symptoms and when to return to the ED. Patient has remained stable throughout ED visit today. All questions answered at this time. Patient is agreeable with disposition and stable for discharge. Medical Decision Making Medical Decision Making [facility] Narrative: 62 year old male with pmhx significant for CKD, nonischemic cardiomyopathy, PAF, CHF, PAC, cardiac defibrilator, DOT, CVA, HTN and behavior disturbance presents to the ED today via EMS from home for evaluation of headache, myalgias, fever (TMAX 102), and dry cough that began yesterday. Vital signs stable. Afebrile and normotensive. He is lying comfortably in bed. Aphasia on exam. 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 Lungs with minimal crackles to right lung base, otherwise CTA. RRR. No JVD or peripheral edema. Plan for basic labs, serology, chest xray and re-evaluation. Differential Diagnosis Differential Diagnoses: The differential diagnosis associated with the presentation includes As above. Admission/Observation Consideration of admission/observation: Escalation of care including admission/observation considered Lab Data [facility] Lab Attestation statement: I reviewed the patient's lab results. As above 06/19/23 08:07 06/19/23 08:07 Labs: Lab Results 06/19/23 06/19/23 Range/Units 05:20 08:07 WBC 5.2 (4.8-10.8) X10*3/uL RBC 4.31 L (4.60-5.80) X10*6/uL Hgb 13.5 L (14.0-18.0) g/dl Hct 40.1 L (42.0-52.0) % MCV 93.0 (80.0-98.0) fL MCH 31.3 (27.0-33.0) pg MCHC 33.7 (31.0-36.0) g/dl RDW 13.2 (11.0-16.0) % Plt Count 160 D (160-400) X10*3/uL MPV 10.6 (9.4-12.4) fL Immature Gran % (Auto) 0.4 (0.0-0.4) % Neut % (Auto) 57.3 (45-73) % Lymph % (Auto) 21.5 (20-40) % Grand % (Auto) 16.5 H (2-11) % Eos % (Auto) 3.7 (0-4) % Baso % (Auto) 0.6 (0-2) % Lymph # (Auto) 1.1 L (1.2-4.9) X10*3/uL Grand # (Auto) 0.9 (0.1-1.2) X10*3/uL Eos # (Auto) 0.2 (0.0-0.4) X10*3/uL Baso # (Auto) 0.0 (0.0-0.2) X10*3/uL Abs Immat Gran (auto) 0.02 (0.00-0.03) X10*3/uL Absolute Neuts (auto) 3.0 (2.0-8.3) x10*3/uL Absolute Nucleated RBC 0.000 (0.0-0.012) X10*3/uL Nucleated RBC % (auto) 0.0 (0.0-0.2) /100WBC Sodium 146 H (135-145) mmol/L Potassium 3.3 (3.3-5.1) mmol/L Chloride 108 (96-108) mmol/L Carbon Dioxide 30 H (22-29) mmol/L Anion Gap 11 L (12-20) BUN 18 H (9-16) mg/dL Creatinine 1.69 H (0.5-1.4) mg/dL Estim Creat Clear Calc 54.2 Estimated GFR 41 Random Glucose 86 (60-115) mg/dL Lactic Acid 1.7 (0.5-2.0) mmol/L Calcium 8.3 L (8.4-10.2) mg/dL Magnesium 1.7 (1.6-2.6) mg/dL Total Bilirubin 0.5 (0.0-1.0) mg/dL AST 21 (5-37) U/L ALT 15 (0-40) U/L Alkaline Phosphatase 93 (39-117) U/L B-Natriuretic Peptide 140 H (<100) pg/mL Total Protein 5.9 L (6.5-8.0) g/dL Albumin 3.4 L (3.5-5.0) g/dL COVID-19 (KERON) Positive A (Negative) COVID-19 Clin Com See Note Influenza Type A (LARRY) Negative (Negative) Influenza Type B (LARRY) Negative (Negative) Influenza A & B Note See Note Independent Interpretation I performed an independent interpretation of an: Plain X-Ray Radiology Impression Discussion of test interpretation with radiology: I have reviewed the radiologist's reading. Radiologist Impression: FINDINGS: Lungs clear. Minor perihilar scarring noted. Heart and pulmonary vessels normal. No congestive change. A left sided pacer stable in appearance. XR/XR chest 1V IMPRESSION: No active disease on this single portable view. Independent Historian Clinical information obtained from an independent historian. History obtained from or confirmed by: Spouse () and EMS External Record Review External record reviewed: Inpatient record, Office record, Outpatient record, Prior outpatient labs, Prior outpatient radiology, Primary care record and Outside ED record Prescription Management I considered prescription management with: Pain Medication and Antiviral Social Determinants Patient?s care significantly limited by Social Determinants of Health including: Other Social Determinant of Health Discharge Plan Discharge Clinical Impression: COVID-19 Patient Disposition: Home, Self-Care Additional Instructions: Your labs today are reassuring. Your chest x-ray was normal. Today you tested positive for COVID-19.? Take Ibuprofen or Tylenol as needed for fevers or body aches.? Quarantine for 5 days and ensure you wear a mask. After 5 days you should wear a mask for 5 days after that.? Practice social distancing and good hand hygiene. Drink plenty of fluids. Follow-up with your primary care provider this week. Return to the emergency department with new or worsening symptoms. In case of emergency call 911 You can purchase a pulse oximeter from your local pharmacy or grocery store, and monitor your oxygen saturation if it goes below 94% you should return to the emergency department for further evaluation. Rosalee an?lisis de hoy son tranquilizadores. Martínez radiograf?a de t?rax fue normal. Hoy diste positivo por COVID-19. [place] ibuprofeno o Tylenol seg?n sea necesario para la fiebre o los gini corporales. Ponga en cuarentena kristina 5 d?as y aseg?rese de usar home m?scara. Despu?s de 5 d?as debes usar home mascarilla kristina los 5 d?as siguientes. Practique el distanciamiento social y home buena higiene de charla. Beber mucho l?quido. Irvin un seguimiento con martínez proveedor de atenci?n primaria esta semana. Regrese al departamento de emergencias si los s?ntomas son nuevos o empeoran. En jj de emergencia llame al 911. Puede comprar un ox?metro de pulso en martínez farmacia o supermercado local y controlar martínez saturaci?n de ox?grace. Si desciende por debajo del 94%, debe regresar al departamento de emergencias para home evaluaci?n adicional. Prescriptions: No Action amiodarone 200 mg tablet 200 mg PO DAILY Qty: 90 3RF levetiracetam 500 mg tablet 500 mg PO BID Qty: 60 6RF Rx Instructions: Take every morning 30 minutes before breakfast with a full glass of water pyridoxine (vitamin B6) [Vitamin B-6] 100 mg tablet 100 mg PO BID Qty: 60 6RF divalproex [Depakote ER] 500 mg tablet extended release 24 hr 500 mg PO BID Qty: 60 6RF atorvastatin 80 mg tablet 80 mg PO BEDTIME Eliquis 5 mg tablet 5 mg PO BID cholecalciferol (vitamin D3) 25 mcg (1,000 unit) Tablet 25 mcg PO DAILY bumetanide 1 mg tablet 1 mg PO DAILY Qty: 30 0RF carvedilol 25 mg Tablet 25 mg PO BID Rx Instructions: must administer with a meal/food levothyroxine 75 mcg Tablet 75 mcg PO DAILY@0600 mirtazapine 15 mg Tablet 15 mg PO BEDTIME methyl salicylate-menthol 15-10 % Cream 1 appl TOPICAL 5XD PRN (Reason: Muscle Pain) aspirin 81 mg Tablet,Delayed Release (Dr/Ec) 81 mg PO DAILY benzonatate 100 mg Capsule 100 mg PO TID PRN (Reason: Cough) clonazepam 1 mg tablet 1 mg PO Q20M PRN (Reason: Seizure Activity) Rx Instructions: [facility]: administer before bedtime acetaminophen 500 mg capsule 1,000 mg PO Q4H PRN (Reason: fever or pain) sacubitril-valsartan 97-103 mg tablet 1 tab PO BID Qty: 100 3RF Referrals: [facility] [Primary Care Provider] - Interventions: ED Discharge Assessment Last Done: 06/19/23 12:22 Discharge Date/Time: 06/19/23 12:36 Print Language: Tamazight
[2023-06-19 08:12] LABS: MANUAL DIFF FLAG NO
[2023-06-19 08:14] LABS: Basophils Percent Auto 0.6 % (0-2); Eosinophils Absolute Auto 0.2 X10*3/uL (0.0-0.4); Eosinophils Percent Auto 3.7 % (0-4); Hematocrit 40.1 % (42.0-52.0); Hemoglobin 13.5 g/dl (14.0-18.0); Imm Gran Abs Auto 0.02 X10*3/uL (0.00-0.03); Imm Gran Pct Auto 0.4 % (0.0-0.4); Lymphocytes Absolute Auto 1.1 X10*3/uL (1.2-4.9); Lymphocytes Percent Auto 21.5 % (20-40); Mean Corpuscular HGB Conc 33.7 g/dl (31.0-36.0); Mean Corpuscular Hemoglobin 31.3 pg (27.0-33.0); Mean Platelet Volume 10.6 fL (9.4-12.4); Monocytes Absolute Auto 0.9 X10*3/uL (0.1-1.2); Monocytes Percent Auto 16.5 % (2-11); Neutrophils Percent Auto 57.3 % (45-73); Platelet Count 160 X10*3/uL (160-400); Red Blood Count 4.31 X10*6/uL (4.60-5.80); Red Cell Distribution Width 13.2 % (11.0-16.0); White Blood Count 5.2 X10*3/uL (4.8-10.8)
[2023-06-19 08:26] LABS: Lactic Acid 1.7 mmol/L (0.5-2.0)
[2023-06-19 08:30] LABS: Alanine Aminotransferase 15 U/L (0-40); Albumin Level 3.4 g/dL (3.5-5.0); Alkaline Phosphatase 93 U/L (39-117); Anion Gap 11 (12-20); Aspartate Amino Transferase 21 U/L (5-37); Bilirubin Total 0.5 mg/dL (0.0-1.0); Blood Urea Nitrogen 18 mg/dL (9-16); Calcium 8.3 mg/dL (8.4-10.2); Carbon Dioxide 30 mmol/L (22-29); Chloride 108 mmol/L (96-108); Creatinine Clr Calc Pharmacy 54.2; Estimated Glomerular Filt Rate 41; Glucose Random 86 mg/dL (60-115); Magnesium 1.7 mg/dL (1.6-2.6); Potassium 3.3 mmol/L (3.3-5.1); Sodium 146 mmol/L (135-145); Total Protein 5.9 g/dL (6.5-8.0)
--- NOTE | 2023-06-19 08:56 | PC.NURSE ---
PT A/O X 2 NO SOB/CHARITO NOTED, HX OF 2 CVA'S PER WHO IS AT BEDSIDE. LUNGS - LLL (DIMINISHED) ALL OTHER LOBES - SLIGHT EXP WHEEZING. C/O 5/10 HEADACHE. NO EDEMA NOTED. WILL CONTINUE TO MONITOR.
[2023-06-19 11:51] LABS: B Type Natriuretic Peptide 140 pg/mL (<100)
== END 2023-06-19 12:36 | disposition home or self-care (01) ==
PROVIDERS: Physician Assistant Medical; Emergency Provider Emergency Medicine
DX: U07.1 COVID-19 (principal); R51.9 Headache, unspecified; R50.9 Fever, unspecified; M79.10 Myalgia, unspecified site; R05.9 Cough, unspecified; R06.02 Shortness of breath
CPT/HCPCS: 36415; 71045; 80053; 83605; 83735; 83880; 85025; 87502; 87635; 99284

== ENCOUNTER 2023-06-19 14:03 | Emergency (ER) | payer OTHER, SELFPAY ==
[2023-06-19 14:16] VITALS: BP 108/72; BP 124/59; PULSE 73; PULSE 74; RESP 24; TEMP 38.5; O2SAT 93; O2SAT 96; BMI 33.9
--- NOTE | 2023-06-19 14:42 | ED_ITS ---
HPI - Weakness General Chief complaint: Weakness Stated complaint: COVID, WEAKNESS Time Seen by Provider: 06/19/23 14:20 Source: family and EMS Mode of arrival: EMS Limitations: physical limitation (aphasia) History of Present Illness HPI Narrative: Patient seen this morning and diagnosed with COVID. He tried to get on the bus but fell due to weakness Complaint: generalized weakness Onset (ago): hour(s) Duration: constant Location: generalized Context: recent illness Related Data Home Medications Medication Instructions Recorded Confirmed apixaban 5 mg tablet (Eliquis) 5 mg PO BID 07/02/21 05/29/23 atorvastatin 80 mg tablet 80 mg PO BEDTIME 07/02/21 05/29/23 citalopram 10 mg tablet 10 mg PO DAILY 07/02/21 05/29/23 mirtazapine 7.5 mg tablet 7.5 mg PO DAILY 07/02/21 05/29/23 cholecalciferol (vitamin D3) 25 25 mcg PO DAILY 01/28/22 05/29/23 mcg (1,000 unit) tablet famotidine 20 mg tablet 20 mg PO DAILY 01/28/22 05/29/23 Previous Rx's Medication Instructions Recorded acetaminophen 500 mg capsule 500 mg PO Q6H PRN fever or pain 01/15/22 #20 caps aspirin 81 mg capsule 81 mg PO Q48H #30 caps 01/30/22 bumetanide 1 mg tablet 1 mg PO DAILY #30 tabs 01/30/22 carvedilol 12.5 mg tablet 12.5 mg PO BID #60 tabs 01/30/22 spironolactone 25 mg tablet 25 mg PO DAILY #30 tabs 01/30/22 ondansetron 4 mg disintegrating 4 mg PO Q6-8H PRN nausea and 02/08/22 tablet vomiting #14 tabs sacubitril 97 mg-valsartan 103 mg 1 tab PO BID #100 tabs 11/04/22 tablet amiodarone 200 mg tablet 200 mg PO DAILY #90 tabs 03/24/23 clonazepam 1 mg tablet See Rx Instructions PO .COMPLEX 06/03/23 #10 tabs divalproex 500 mg tablet,extended 500 mg PO BID #60 tabs 06/03/23 release 24 hr (Depakote ER) levetiracetam 500 mg tablet 500 mg PO BID #60 tabs 06/03/23 pyridoxine (vitamin B6) 100 mg 100 mg PO BID #60 tabs 06/03/23 tablet (Vitamin B-6) Allergies Allergy/AdvReac Type Severity Reaction Status Date / Time No Known Allergies Allergy Verified 05/29/23 09:52 [No Known Allergies*] Review of Systems 2 Review of Systems: Yes Unobtainable due to mental condition Neurologic: Denies Sensory deficit (Neuro) [facility] Past Medical History Medical History Behavior disturbance Seizure as late effect of cerebrovascular accident (CVA) Restrictive lung disease Uncontrolled hypertension Acute decompensated heart failure Cerebrovascular accident CVA (cerebral vascular accident) Atrial fibrillation with rapid ventricular response Persistent atrial fibrillation Chronic systolic heart failure Gallstones CHF (congestive heart failure) Embolism of kidney CKD (chronic kidney disease), stage II Cardiac defibrillator in place NSVT (nonsustained ventricular tachycardia) NICM (nonischemic cardiomyopathy) Renal infarct Hypertension Surgical History History of cardiac defibrillator placement Family History Family History Other CAD (coronary artery disease) Social History Social History Household Members: Unknown / Unable to assess Housing: Unknown / Unable to assess Do you presently have visiting nurse or other home services: No Unable to assess alcohol history related to: Unknown Alcohol intake: never 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 Tobacco Use Status: Never used Tobacco Smoked in Last 30 Days: No Use of substances other than those prescribed or required for medical reasons: No Advance Directives: Yes Advance Directives on File: Yes Advance Directives Date on File: 10/18/20 service: Yes Current occupational status: employed Physical Exam 2 Vital Signs: Vital Signs: Last Vital Signs Temp 97.5 F 06/19/23 17:34 Pulse 79 06/19/23 17:34 Resp 19 06/19/23 17:34 BP 120/60 06/19/23 17:34 Pulse Ox 96 06/19/23 17:34 O2 Del Method Room Air 06/19/23 17:34 BMI result Body Mass Index 33.9 Const: Other: male with aphasia appearing weak, looking older than stated age Orientation/consciousness: oriented to person Limitations: physical limitations HEENT: Head: Yes normal to inspection Ears: external ears normal General nose exam: Normal external nose present Mouth: Normal oral and palatal mucosa present and oropharynx normal Throat: Yes posterior oropharynx normal Eyes: General: appearance normal, both eyes and all related structures Neck: Other: supple Neck: Yes normal visual inspection Chest: Chest palpation & inspection: normal inspection of the chest Resp: Other: diffuse rhonchi Cardio: Jugular venous distension: no JVD Rate: regular rate Rhythm: r egular rhythm Heart sounds: S1 normal heart sound present and S2 normal heart sound present GI: Inspection: Yes normal to inspection Palpation (GI): Soft to palpation, nontender and No hepatosplenomegaly present Auscultation: normal bowel sounds : General: Yes no CVA tenderness Back/Spine/Pelvis: Back: no CVA tenderness Skin: General skin exam: no rashes or lesions noted Neuro: Other: right sided hemiparesis General: oriented to person Cranial nerves: Yes CN's II-XII intact bilaterally Sensory Exam: No Sensory deficit (Neuro) Extrem: General: Yes normal to inspection Psych: Appearance: grossly normal Course Reevaluation(s) Reevaluation #1: Patient febrile with COVID review of CXR shows no infiltrate, labs at baseline, not hypoxic, will refer to case management Time: 16:15 Reevaluation #2: physician observation: patient placed in physician observation now to see if patient will regain his strength or have to be placed Time: 16:16 Medications Administered Discontinued Medications Generic Name Dose Route Start Last Admin Trade Name Freq PRN Reason Stop Dose Admin Acetaminophen 975 mg 06/19/23 14:26 06/19/23 15:24 Acetaminophen 325 Mg Tablet PO 06/19/23 14:27 975 mg ONCE ONE Administration Sodium Chloride 1,000 mls @ 200 mls/hr 06/19/23 14:45 06/19/23 20:32 Ns IVCONT 06/19/23 19:44 Infused .Q5H NENA Infusion Medical Decision Making Differential Diagnosis Differential Diagnoses: The differential diagnosis associated with the presentation includes (Covid, pneumonia, dehydration, electrolyte abnormalities) Admission/Observation Consideration of admission/observation: Escalation of care including admission/observation considered (upon arrival patient considered for admission) Lab Data I reviewed the xray done on her prior visit which showed on pneumonia 06/19/23 15:18 06/19/23 15:18 Labs: Lab Results 06/19/23 Range/Units 15:18 WBC 8.5 (4.8-10.8) X10*3/uL RBC 4.45 L (4.60-5.80) X10*6/uL Hgb 14.1 (14.0-18.0) g/dl Hct 41.4 L (42.0-52.0) % MCV 93.0 (80.0-98.0) fL MCH 31.7 (27.0-33.0) pg MCHC 34.1 (31.0-36.0) g/dl RDW 13.3 (11.0-16.0) % Plt Count 188 (160-400) X10*3/uL MPV 11.1 (9.4-12.4) fL Immature Gran % (Auto) 0.7 H (0.0-0.4) % Neut % (Auto) 71.0 (45-73) % Lymph % (Auto) 15.2 L (20-40) % [place] % (Auto) 11.3 H (2-11) % Eos % (Auto) 1.4 (0-4) % Baso % (Auto) 0.4 (0-2) % Lymph # (Auto) 1.3 (1.2-4.9) X10*3/uL [place] # (Auto) 1.0 (0.1-1.2) X10*3/uL Eos # (Auto) 0.1 (0.0-0.4) X10*3/uL Baso # (Auto) 0.0 (0.0-0.2) X10*3/uL Abs Immat Gran (auto) 0.06 H (0.00-0.03) X10*3/uL Absolute Neuts (auto) 6.0 (2.0-8.3) x10*3/uL Absolute Nucleated RBC 0.000 (0.0-0.012) X10*3/uL Nucleated RBC % (auto) 0.0 (0.0-0.2) /100WBC Sodium 145 (135-145) mmol/L Potassium 3.3 (3.3-5.1) mmol/L Chloride 107 (96-108) mmol/L Carbon Dioxide 27 (22-29) mmol/L Anion Gap 14 (12-20) BUN 18 H (9-16) mg/dL Creatinine 1.79 H (0.5-1.4) mg/dL Estim Creat Clear Calc 49.5 Estimated GFR 38 Random Glucose 90 (60-115) mg/dL Calcium 8.4 (8.4-10.2) mg/dL Total Bilirubin 0.5 (0.0-1.0) mg/dL AST 28 (5-37) U/L ALT 20 (0-40) U/L Alkaline Phosphatase 106 (39-117) U/L Troponin I High Sens 32.2 D (<3.5-35.0) ng/L Total Protein 6.7 (6.5-8.0) g/dL Albumin 3.7 (3.5-5.0) g/dL Independent Historian Clinical information obtained from an independent historian. History obtained from or confirmed by: Spouse External Record Review External record reviewed: Outpatient record Prescription Management I considered prescription management with: Antibiotic (no evidence of pneumonia on xray) Chronic Conditions Patient?s care impacted by: Diabetes, Hypertension and Other (stroke) Discharge Plan Discharge Clinical Impression: COVID-19, Weakness Patient Disposition: Still a Patient Prescriptions: No Action amiodarone 200 mg tablet 200 mg PO DAILY Qty: 90 3RF levetiracetam 500 mg tablet 500 mg PO BID Qty: 60 6RF pyridoxine (vitamin B6) [Vitamin B-6] 100 mg tablet 100 mg PO BID Qty: 60 6RF divalproex [Depakote ER] 500 mg tablet extended release 24 hr 500 mg PO BID Qty: 60 6RF clonazepam 1 mg tablet See Rx Instructions PO .COMPLEX Qty: 10 1RF Rx Instructions: 1 tab at onset of seizures and can be repeated in 20 min if needed orally; administer 30 minutes before bedtime atorvastatin 80 mg tablet 80 mg PO BEDTIME citalopram 10 mg tablet 10 mg PO DAILY mirtazapine 7.5 mg tablet 7.5 mg PO DAILY Eliquis 5 mg tablet 5 mg PO BID acetaminophen 500 mg capsule 500 mg PO Q6H PRN (Reason: fever or pain) Qty: 20 0RF famotidine 20 mg Tablet 20 mg PO DAILY cholecalciferol (vitamin D3) 25 mcg (1,000 unit) Tablet 25 mcg PO DAILY carvedilol 12.5 mg Tablet 12.5 mg PO BID Qty: 60 0RF Protocol: Hold for SBP/HR < HOLD for SBP < : 90 HOLD for HR < : 60 spironolactone 25 mg tablet 25 mg PO DAILY Qty: 30 0RF aspirin 81 mg capsule 81 mg PO Q48H Qty: 30 0RF bumetanide 1 mg tablet 1 mg PO DAILY Qty: 30 0RF ondansetron 4 mg tablet,disintegrating 4 mg PO Q6-8H PRN (Reason: nausea and vomiting) Qty: 14 0RF sacubitril-valsartan 97-103 mg tablet 1 tab PO BID Qty: 100 3RF
[2023-06-19 15:23] LABS: MANUAL DIFF FLAG NO
[2023-06-19] MEDS: Acetaminophen 325 MG TABLET 975 MG PO (15:24)
[2023-06-19] MEDS: 0.9 % Sodium Chloride 1,000 ML 200 ML IVCONT (15:25)
[2023-06-19 15:33] LABS: Basophils Percent Auto 0.4 % (0-2); Eosinophils Absolute Auto 0.1 X10*3/uL (0.0-0.4); Eosinophils Percent Auto 1.4 % (0-4); Hematocrit 41.4 % (42.0-52.0); Hemoglobin 14.1 g/dl (14.0-18.0); Imm Gran Abs Auto 0.06 X10*3/uL (0.00-0.03); Imm Gran Pct Auto 0.7 % (0.0-0.4); Lymphocytes Absolute Auto 1.3 X10*3/uL (1.2-4.9); Lymphocytes Percent Auto 15.2 % (20-40); Mean Corpuscular HGB Conc 34.1 g/dl (31.0-36.0); Mean Corpuscular Hemoglobin 31.7 pg (27.0-33.0); Mean Platelet Volume 11.1 fL (9.4-12.4); Monocytes Percent Auto 11.3 % (2-11); Platelet Count 188 X10*3/uL (160-400); Red Blood Count 4.45 X10*6/uL (4.60-5.80); Red Cell Distribution Width 13.3 % (11.0-16.0); White Blood Count 8.5 X10*3/uL (4.8-10.8)
[2023-06-19 15:39] LABS: Alanine Aminotransferase 20 U/L (0-40); Albumin Level 3.7 g/dL (3.5-5.0); Alkaline Phosphatase 106 U/L (39-117); Anion Gap 14 (12-20); Aspartate Amino Transferase 28 U/L (5-37); Bilirubin Total 0.5 mg/dL (0.0-1.0); Blood Urea Nitrogen 18 mg/dL (9-16); Calcium 8.4 mg/dL (8.4-10.2); Carbon Dioxide 27 mmol/L (22-29); Chloride 107 mmol/L (96-108); Creatinine Clr Calc Pharmacy 49.5; Estimated Glomerular Filt Rate 38; Glucose Random 90 mg/dL (60-115); Potassium 3.3 mmol/L (3.3-5.1); Sodium 145 mmol/L (135-145); Total Protein 6.7 g/dL (6.5-8.0)
[2023-06-19 15:45] LABS: Troponin-I High Sensitivity 32.2 ng/L (<3.5-35.0)
--- NOTE | 2023-06-19 17:14 | MHC.CM.ED ---
Addendum entered by Amna Baugh 06/19/23 20:21: Patient's girlfriend is with patient. Aixa Francisco [phone]. 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 Aware that patient will have PT assessment in the morning and that referrals have been made for STR if needed. Pt now tells girlfriend that he wants to go home in the morning. Will have PT assessment and possible home PT. Original Note: Pt was seen earlier this am with flu like symptoms and a positive home covid test today . Pt was discharged and returned due to weakness. Pt is alert and orientated x3, however patient seems vague with answers to questions, even when using the director of public health. Pt lives alone. Has no local family. States they are all in [place]. Unsure if patient has any home services, as he does not seen to understand the questions.? Covid. Pt uses a cane and a power wheelchair. Pt fell today. CM explained that PT would see him in the morning and CM could look for local facilities for STR if recommended. CM explained that it may be difficult to find STR facility that will accept him with Covid. CM will follow for discharge planning.
[2023-06-19 17:34] VITALS: BP 120/60; PULSE 79; RESP 19; TEMP 36.4; O2SAT 96
--- NOTE | 2023-06-19 20:47 | PC.NURSE ---
Pt ambulated to bathroom with one assist and a cane. Pt's has been in and out of his room with questions and requests. Pt has no complaints at this time.
[2023-06-20 03:58] VITALS: BP 118/72; PULSE 78; RESP 18; TEMP 36.8; O2SAT 92
[2023-06-20 07:45] VITALS: BP 118/72; PULSE 78; O2SAT 92
--- NOTE | 2023-06-20 09:25 | PC.NURSE ---
this RN Resumed care of pt at this time. vss and up to date. nsr on the property assessment monitor. pt denies pain. no sob/wob noted. respirations even and unlabored. pt and family member requesting pt's home medications. will complete med rec and have medications ordered by provider. plan of care ongoing. call reid placed within reach.
--- NOTE | 2023-06-20 11:04 | MHC.CM.CNN ---
Addendum entered by Bhavani Evans 06/20/23 14:29: Aixa also aware if patient declines STR he will have to be d/c'd home. Original Note: Patient remains in ER. Physical therapy eval completed. Short term rehab is recommended. Attempted to meet with patient and manager advanced. Patient is sleeping. Patient's sig other/HCP/SURTASS ANALYST, Aixa is at bedside. Aixa feels patient will not be able to safely return home without rehab and feels patient will be agreeable to STR. Aixa is aware placement may be difficult due to Covid. If no bed offers are available by 06/24, patient will be retested for Covid. If positive, placement may not be able to be found before 06/27. Aixa verbalizes understanding. Aixa states patient is a [place] as well. T/W spoke with M[facility] at the [facility]. [facility] Aixa is concerned about location of patient. Patient has been to [address] [place] [address] and [facility] in the past and did not have good experiences there. Aixa also doesn't have a car and won't be able to visit him if he is placed far away. Referral broadcasted with in 15 miles of patient's home to all facilities that are contracted with patient's insurance. Continue to monitor for d/c needs.
--- NOTE | 2023-06-20 12:02 | PC.NURSE ---
pt incontinent of urine. perineal care provided. new pad placed. pt repositioned to comfort. respirations remain even and unlabored. bedside. call reid placed within reach.
--- NOTE | 2023-06-20 12:12 | PC.NURSE ---
pharmacy called in regards to completing medication reconciliation - states they will complete shortly.
--- NOTE | 2023-06-20 12:31 | HE.PHANOTE ---
RE: angie hand ME faxed for medication list request @[phone]
--- NOTE | 2023-06-20 14:22 | PHA.MEDREC ---
Pharmacy Consult ? Medication Reconciliation Pharmacy has completed the medication reconciliation. List faxed from [place]
--- NOTE | 2023-06-20 15:01 | PC.NURSE ---
report given to TERRANCE Graham in overflow. transport notified at this time.
[2023-06-20 15:32] VITALS: BP 145/67; PULSE 66; RESP 18; TEMP 37.3; O2SAT 94
--- NOTE | 2023-06-20 15:48 | PC.NURSE ---
Pt received from main ED. Alert, calm and cooperative at this time. No resp distress ot temp.
--- NOTE | 2023-06-20 18:00 | MHC.EDTECH ---
Pt cleaned and repositioned with nurse.
--- NOTE | 2023-06-20 18:01 | MHC.EDTECH ---
Pt cleaned and repostioned with nurse.
[2023-06-20 20:46] VITALS: BP 191/88; PULSE 71; RESP 18; TEMP 37.9; O2SAT 94
--- NOTE | 2023-06-20 20:48 | MHC.EDTECH ---
This tech took over care at 1900. PT wearing briefs which were dry and clean. PT assisted with urinal. PT vitals taken as noted.
[2023-06-20] MEDS: Pyridoxine HCl (Vitamin B6) 50 MG TABLET 100 MG PO (21:23)
[2023-06-20] MEDS: Sacubitril/Valsartan 97/103 1 TAB TABLET PO (21:24)
[2023-06-20] MEDS: Apixaban 5 MG TABLET PO (21:24)
[2023-06-20] MEDS: levETIRAcetam 500 MG TABLET PO (21:24)
[2023-06-20] MEDS: Acetaminophen 325 MG TABLET 650 MG PO (21:24)
[2023-06-20] MEDS: carvediloL 25 MG TABLET PO (21:24)
[2023-06-20] MEDS: Mirtazapine 15 MG TABLET PO (21:24)
[2023-06-20] MEDS: Atorvastatin Calcium 80 MG TABLET PO (21:24)
[2023-06-20] MEDS: Divalproex Sodium ER 500 MG TAB.ER.24H PO (21:24)
--- NOTE | 2023-06-20 21:59 | PC.NURSE ---
this rn assumed care of pt @ 1900 home medications had not yet been continued. napoleon shanda continued home medications made aware of temp of 100.2 orally pt medicated according to manuel pt provided with prn tylenol for fever
--- NOTE | 2023-06-21 04:31 | PC.NURSE ---
Assumed care of patient . Patient asleep throughout night.
[2023-06-21] MEDS: Levothyroxine Sodium 75 MCG TABLET PO (05:59)
[2023-06-21 07:50] VITALS: BP 136/73; PULSE 59; RESP 16; TEMP 36.7; O2SAT 96
[2023-06-21] MEDS: Divalproex Sodium ER 500 MG TAB.ER.24H PO ×2 (08:31→20:28)
[2023-06-21] MEDS: Aspirin Enteric Coated 81 MG TABLET.DR PO (08:31)
[2023-06-21] MEDS: Apixaban 5 MG TABLET PO ×2 (08:31→20:28)
[2023-06-21] MEDS: Cholecalciferol (Vitamin D3) 25 MCG TABLET PO (08:31)
[2023-06-21] MEDS: Bumetanide 1 MG TABLET PO (08:31)
[2023-06-21] MEDS: Sacubitril/Valsartan 97/103 1 TAB TABLET PO ×2 (08:31→20:28)
[2023-06-21] MEDS: Amiodarone HCL 200 MG TABLET PO (08:31)
[2023-06-21] MEDS: Pyridoxine HCl (Vitamin B6) 50 MG TABLET 100 MG PO ×2 (08:31→20:28)
[2023-06-21] MEDS: levETIRAcetam 500 MG TABLET PO ×2 (08:31→20:28)
--- NOTE | 2023-06-21 09:20 | PC.NURSE ---
on covid pxn per orders- handoff from prev rn- no distress
[2023-06-21 11:51] VITALS: BP 140/74; PULSE 65; RESP 16; TEMP 36.7; O2SAT 94
[2023-06-21 14:00] VITALS: BP 142/76; PULSE 68; RESP 16; TEMP 36.7; O2SAT 94
[2023-06-21] MEDS: Atorvastatin Calcium 80 MG TABLET PO (20:28)
[2023-06-21] MEDS: Mirtazapine 15 MG TABLET PO (20:28)
[2023-06-21] MEDS: carvediloL 25 MG TABLET PO (20:28)
[2023-06-21 20:29] VITALS: BP 158/78; PULSE 60; RESP 18; TEMP 36.9; O2SAT 93
[2023-06-22 06:00] VITALS: BP 155/72; PULSE 54; RESP 16; TEMP 36.6; O2SAT 94
[2023-06-22] MEDS: Levothyroxine Sodium 75 MCG TABLET PO (06:36)
--- NOTE | 2023-06-22 08:44 | MHC.EDTECH ---
Pt ate 100% of his breakfast. 240cc of fluids. Pt is resting in bed with the lights off.
[2023-06-22] MEDS: Apixaban 5 MG TABLET PO ×2 (09:33→21:39)
[2023-06-22] MEDS: Sacubitril/Valsartan 97/103 1 TAB TABLET PO ×2 (09:33→21:39)
[2023-06-22] MEDS: Aspirin Enteric Coated 81 MG TABLET.DR PO (09:33)
[2023-06-22] MEDS: Bumetanide 1 MG TABLET PO (09:33)
[2023-06-22] MEDS: Cholecalciferol (Vitamin D3) 25 MCG TABLET PO (09:34)
[2023-06-22] MEDS: Amiodarone HCL 200 MG TABLET PO (09:34)
[2023-06-22] MEDS: carvediloL 25 MG TABLET PO ×2 (09:34→21:39)
[2023-06-22] MEDS: Divalproex Sodium ER 500 MG TAB.ER.24H PO ×2 (09:34→21:39)
[2023-06-22] MEDS: Pyridoxine HCl (Vitamin B6) 50 MG TABLET 100 MG PO ×2 (09:34→21:39)
[2023-06-22] MEDS: levETIRAcetam 500 MG TABLET PO ×2 (09:34→21:39)
--- NOTE | 2023-06-22 11:46 | MHC.EDTECH ---
Pt has been sleeping since breakfast. Offered to get PT washed up, PT declined.
--- NOTE | 2023-06-22 12:31 | MHC.EDTECH ---
Pt did not eat any of his lunch. No fluids were drank either. Pt is sleeping.
[2023-06-22 14:00] VITALS: BP 128/69; PULSE 55; RESP 18; TEMP 36.9; O2SAT 95
--- NOTE | 2023-06-22 17:38 | MHC.EDTECH ---
pt ate 25% of his dinner. 240cc of his fluids. this tech also emptied the urinal at 200cc, yellow
[2023-06-22] MEDS: Atorvastatin Calcium 80 MG TABLET PO (21:39)
[2023-06-22] MEDS: Mirtazapine 15 MG TABLET PO (21:39)
[2023-06-22 21:47] VITALS: BP 157/72; PULSE 63; RESP 16; TEMP 37.4; O2SAT 97
--- NOTE | 2023-06-22 21:47 | PC.NURSE ---
Pt medicated per jun. Plan of care ongoing.
[2023-06-22 21:50] VITALS: BP 157/72; PULSE 90; RESP 16; TEMP 37.4; O2SAT 97
[2023-06-23] MEDS: Levothyroxine Sodium 75 MCG TABLET PO (06:16)
--- NOTE | 2023-06-23 06:19 | PC.NURSE ---
Pt medicated per jun. Plan of care ongoing.
[2023-06-23 09:11] VITALS: BP 145/71; PULSE 53; RESP 17; TEMP 37; O2SAT 95
[2023-06-23] MEDS: Cholecalciferol (Vitamin D3) 25 MCG TABLET PO (10:04)
[2023-06-23] MEDS: carvediloL 25 MG TABLET PO ×2 (10:04→21:07)
[2023-06-23] MEDS: Divalproex Sodium Sprinkles 125 MG CAP.DR.SPR 375 MG PO (10:04)
[2023-06-23] MEDS: Aspirin 81 MG TAB.CHEW PO (10:04)
[2023-06-23] MEDS: Bumetanide 1 MG TABLET PO (10:05)
[2023-06-23] MEDS: levETIRAcetam 500 MG TABLET PO ×2 (10:05→21:07)
[2023-06-23] MEDS: Sacubitril/Valsartan 97/103 1 TAB TABLET PO ×2 (10:05→21:05)
[2023-06-23] MEDS: Pyridoxine HCl (Vitamin B6) 50 MG TABLET 100 MG PO ×2 (10:05→21:04)
[2023-06-23] MEDS: Amiodarone HCL 200 MG TABLET PO (10:05)
[2023-06-23] MEDS: Apixaban 5 MG TABLET PO ×2 (10:05→21:04)
--- NOTE | 2023-06-23 13:59 | MHC.CM.ED ---
Patient remains in ER overflow. [facility] is able to offer a bed. Met with patient and Botswanan intepreter to discuss d/c planning. Patient requested T/W speak with Aixa. Spoke with Aixa via telephone at [phone] and help of the case planner. Aixa is aware that [facility] is the only facility contracted with patient's insurance that has a bed to offer. Aixa is concerned about the location of the facility because Aixa doesn't drive. Aixa is considering taking patient home with VNA. T/W explained nurse and physical therapy will only visit a couple of times a week. Aixa will be at [facility] [place] at 1030[place] and would like to speak with CM to discuss the best d/c plan for patient. [facility] aware. Continue to monitor for d/c needs.
[2023-06-23 16:28] VITALS: BP 130/72; PULSE 55; RESP 22; TEMP 36.7; O2SAT 98
[2023-06-23] MEDS: Divalproex Sodium Sprinkles 125 MG CAP.DR.SPR 500 MG PO (20:59)
[2023-06-23] MEDS: Atorvastatin Calcium 80 MG TABLET PO (21:03)
[2023-06-23] MEDS: Mirtazapine 15 MG TABLET PO (21:07)
[2023-06-23 21:10] VITALS: BP 137/76; PULSE 62; RESP 16; TEMP 36.6; O2SAT 97
--- NOTE | 2023-06-23 21:38 | PC.NURSE ---
pt took all of meds crushed except entresto- called pharm- entresto cannot be crushed. took well whole w water. pt repositioned, boosted, new pad, urinal emptied for x1 void yellow urine. ate snack and po fluids. call reid in reach. on covid pxn. VSS. no diff breathing. bed alarm on. no pain reported. continues w baseline r sided weakness and mild aphasia though makes needs known and hits reid when in need of things appropriately.
--- NOTE | 2023-06-23 23:37 | PC.NURSE ---
this rn assumed care of pt. pt resting in bed, no acute distress noted.
[2023-06-24 06:10] VITALS: BP 145/71; PULSE 55; RESP 20; O2SAT 97
[2023-06-24] MEDS: Levothyroxine Sodium 75 MCG TABLET PO (06:41)
[2023-06-24 09:01] VITALS: BP 132/68; PULSE 62; RESP 18; TEMP 36.7; O2SAT 97
[2023-06-24] MEDS: Apixaban 5 MG TABLET PO (09:02)
[2023-06-24] MEDS: Pyridoxine HCl (Vitamin B6) 50 MG TABLET 100 MG PO (09:03)
[2023-06-24] MEDS: Amiodarone HCL 200 MG TABLET PO (09:03)
[2023-06-24] MEDS: Aspirin 81 MG TAB.CHEW PO (09:03)
[2023-06-24] MEDS: Sacubitril/Valsartan 97/103 1 TAB TABLET PO (09:03)
[2023-06-24] MEDS: carvediloL 25 MG TABLET PO (09:03)
[2023-06-24] MEDS: Cholecalciferol (Vitamin D3) 25 MCG TABLET PO (09:03)
[2023-06-24] MEDS: Bumetanide 1 MG TABLET PO (09:03)
[2023-06-24] MEDS: levETIRAcetam 500 MG TABLET PO (09:03)
[2023-06-24] MEDS: Divalproex Sodium Sprinkles 125 MG CAP.DR.SPR 375 MG PO (09:04)
--- NOTE | 2023-06-24 10:01 | PC.NURSE ---
Addendum entered by Katrin Gerber RN 06/24/23 10:58: disregard Sylvia CARLOS, as that was intended for Overflow Bed 9. Original Note: assumed care of pt at 0700. pt a&o x4, calm and cooperative for most part. while medicating pt with AM meds, pt became agitated and pushed bedside table into t/w. t/w brought a spanish literature professor in and pt made threatening body movements like wanting to get out of bed and punch t/w, yelling at t/w to get out in Khmer. pt able to be redirected. it appears the pt was frustrated with amount of medications and not having a cup, sipping from straw from water pitcher. t/w listed the medications to the pt and provided with a cup for his water. pt finished taking medications and calmed down. pt consumed breakfast, vss. call reid within reach. awaiting Sylvia RN to assess pt at 1030. pt also expected to arrive between 1030 and 1100 to meet with CM per Bhavani. rr even/unlabored. COVID precautions in place. plan of care ongoing.
--- NOTE | 2023-06-24 10:59 | PC.NURSE ---
pt did not want to use bed briggs or commode. pt had 2 assist with walker to bathroom. had BM.
--- NOTE | 2023-06-24 13:07 | MHC.CM.ED ---
Addendum entered by Bhavani Evans 06/24/23 15:02: [facility] is able to accept patient. Aixa made aware via telephone with the help of the interpreter deaf. Aixa accepts [facility]. Original Note: Patient remains in ER overflow. Met with patient and sig otherAixa with the help of the interpreter deaf. Patient and Aixa feel patient can safely go home. Has been active with [facility] in the past. Referral made via [facility]. [facility] is not able to accept patient at this time. Both agreeable to referral being broadcasted in [facility]. Referral made. [facility] booked for 1pm. Patient, Aixa, Sherrell RN and Maricarmen LYNCH aware. Continue to monitor for d/c needs.
== END 2023-06-24 13:30 | disposition home or self-care (01) ==
PROVIDERS: Emergency Provider Emergency Medicine; PCP Internal Medicine
DX: U07.1 COVID-19 (principal); R53.1 Weakness; R26.2 Difficulty in walking, not elsewhere classified; R11.2 Nausea with vomiting, unspecified; Z79.899 Other long term (current) drug therapy
CPT/HCPCS: 36415; 80053; 84484; 85025; 87040; 96360; 96361; 97162; 99285

== ENCOUNTER 2023-07-02 13:13 | Outpatient (AMB) | payer OTHER, SELFPAY ==
--- NOTE | 2023-07-02 13:22 | MHC.PC.OV ---
Vital Signs 07/02/23 13:23 Height 5 ft 9 in Weight 226 lb BMI 33.4 BP 106/70 Blood Pressure Location Lt brachial Position Sitting Intake Visit Reasons: est care Intake Note: Patient here [facility] care Block Captain Required: No Accompanied by: girlfriend and ESTHETICIAN/OWNER Allergies No Known Allergies [No Known Allergies*] Allergy (Verified 07/02/23 13:53) Medication List - Last Reconciled 07/02/23 by Gemini Fuentes MD acetaminophen 1,000 mg PO Q4H PRN amiodarone 200 mg PO DAILY apixaban (Eliquis) 5 mg PO BID aspirin 81 mg PO DAILY atorvastatin 80 mg PO BEDTIME benzonatate 100 mg PO TID PRN bumetanide 1 mg PO DAILY carvedilol 25 mg PO BID clonazepam 1 mg PO Q20M PRN divalproex ER (Depakote ER) 500 mg PO BID levetiracetam 500 mg PO BID levothyroxine 75 mcg PO DAILY@0600 methyl salicylate-menthol 15-10 % 1 appl topical 5XD PRN pyridoxine (vitamin B6) (Vitamin B-6) 100 mg PO BID sacubitril-valsartan 97-103 mg 1 tab PO BID Tobacco use date assessed: 07/02/23 Fall risk assessment: 2 + Falls in past year Last assessed Fall Risk: 07/02/23 Dental Screening Dental Screen Date: 07/02/23 Did you have a dental visit in the last 12 months?: Yes Did you have a dental problem in the last 6 months where you did not have access to dental care?: No Was dental information given to patient?: Patient has dentist HPI HPI Comments History of Present Illness Details This is a 62-year-old male with hypertension, persistent atrial fibrillation on chronic anticoagulation, chronic systolic congestive heart failure, cerebrovascular accident in 2021 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 Blood pressure stable. On chronic anticoagulation for atrial fibrillation and denies any active bleeding. Last echocardiogram done October 2022 shows an ejection fraction of 25-30% and this is follow by cardiology. Denies gaining 5 lb in a week. Had a stroke in 2021 involving the middle cerebral artery and since then has right hemiplegia and slurred speech. As a result of the stroke now have seizures and is follow by Neurology. Denies any chest pain or shortness of breath. Walks with a cane for gait stability. Requires assistance in basic activities of daily living such as dressing/undressing, bathing and toileting. Also needs assistance in mobility transfer from bed to chair. Has obstructive sleep apnea and is compliant with CPAP machine. [facility] Medical History (Updated 07/02/23 @ 14:18 by Gemini Fuentes MD) PAF (paroxysmal atrial fibrillation) Chronic heart failure DOT (acute kidney injury) Behavior disturbance Seizure as late effect of cerebrovascular accident (CVA) Restrictive lung disease Uncontrolled hypertension Acute decompensated heart failure Cerebrovascular accident CVA (cerebral vascular accident) Atrial fibrillation with rapid ventricular response Persistent atrial fibrillation Chronic systolic heart failure Gallstones CHF (congestive heart failure) Embolism of kidney CKD (chronic kidney disease), stage II Cardiac defibrillator in place NSVT (nonsustained ventricular tachycardia) NICM (nonischemic cardiomyopathy) Renal infarct Hypertension Surgical History History of cardiac defibrillator placement Family History Mother No problems noted. Father No problems noted. Other CAD (coronary artery disease) Social History Household Members: Unknown / Unable to assess Housing: Apartment Do you presently have visiting nurse or other home services: No Unable to assess alcohol history related to: Unknown Alcohol intake: never 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 Tobacco Use Status: Never used Tobacco e-Cigarette/Vaping Use: Never Used Second Hand Smoke Exposure: No Advance Directives Date on File: 10/18/20 service: Yes Current occupational status: unemployed Cognitive needs: Yes Hearing needs: No Vision needs: No Questionnaire PHQ-9 Over the last 2 weeks, how often have you been bothered by any of the following problems? 1. Little interest or pleasure in doing things: not at all 2. Feeling down, depressed, or hopeless: not at all 3. Trouble falling or staying asleep, or sleeping too much: several days 4. Feeling tired or having little energy: more than half the days 5. Poor appetite or overeating: more than half the days 6. Feeling bad about yourself - or that you are a failure or have let yourself or your family down: not at all 7. Trouble concentrating on things, such as reading the newspaper or watching television: not at all 8. Moving or speaking so slowly that other people could have noticed. Or the opposite - being so fidgety or restless that you have been moving around a lot more than usual: not at all 9. Thoughts that you would be better off or of hurting yourself in some way: not at all Total score: 5 Depression Screening Interpretation: Negative Depression Screening Done: Yes 84624 - PHQ-9 Billing: Yes Source: Developed by Drs. Lupillo Martin, Sienna Mackey, Francis Rinaldi and colleagues, with an educational jamison from [employer] ([employer]). Thrive Questionnaire Date Thrive assessed: 07/02/23 I am a: Patient What is your living situation today?: I have a steady place to live Within the past 12 months, did the food you bought not last and you didn't have the money to get more?: Never true Within the past 12 months, did you worry whether your food would run out before you got money to buy more?: Never true Do you have trouble paying for medicines?: No Do you have trouble getting transportation to medical appointments?: No Do you have trouble paying your heating and electricity bill?: No Do you have trouble taking care of your child, family member or friend?: No Do you have trouble with day-to-day activities such as bathing, preparing meals, shopping, managing finances, etc.?: Yes Are you currently unemployed and looking for a job?: No Are you interested in more education?: No Please select the resources that you would like help with: None Currently or been in a relationship where the following occur: no concerns reported THRIVE Score: 0 FREEMAN-7 AMB Questionnaire FREEMAN-7 Date FREEMAN - 7 assessed: 07/02/23 Feeling nervous, anxious, or on edge: 1 = Several days Not being able to stop or control worryin = Not at all Worrying too much about different things: 0 = Not at all Trouble relaxin = Not at all Being so restless that it is hard to sit still: 0 = Not at all Becoming easily annoyed or irritable: 1 = Several days Feeling afraid as if something awful might happen: 0 = Not at all Total FREEMAN-7 score (0-4 normal; 5-9 mild; 10-14 moderate; 15-21 severe): 2 Source: Developed by Drs. Lupillo Martin, Sienna Mackey, Francis Rinaldi and colleagues, with an educational jamison from [employer] ([employer]). FREEMAN-7 Assessment Billing FREEMAN-7 Assessment Tool: FREEMAN-7 Assessment 01192 Review of Systems Const All systems reviewed & are unremarkable except as noted in HPI and below Eyes Reports no additional complaints, Denies change in vision and Denies other visual disturbances Card Denies chest pain at rest, Denies chest pain with activity, Denies edema, Denies irregular heart rhythm, Denies claudication, Denies dyspnea, Denies dyspnea on exertion, Denies orthopnea, Denies paroxysmal nocturnal dyspnea and Denies slow heart rate Resp Denies cough, Denies dyspnea and Denies dyspnea on exertion GI Denies abdominal pain, Denies change in bowel habits, Denies excessive flatus, Denies nausea and Denies vomiting Denies urinary hesitancy, Denies urinary incontinence and Denies urinary urgency Musc Reports abnormal gait, Denies atrophy, Denies deformity and Denies limited range of motion Skin/Breast Denies bleeding lesions, Denies changing lesions and Denies rash Neuro Reports Abnormal speech present, Reports abnormal gait, Denies behavioral changes, Denies lack of coordination and Reports focal weakness Psych Denies behavioral changes Physical exam (Primary Care) Vital Signs: Last Vital Signs BP 106/70 07/02/23 13:23 BMI result Body Mass Index 33.4 Tobacco/Smoking Status: Tobacco use Status Tobacco use date assessed 07/02/23 07/02/23 13:36 Patient Tobacco Use Status Never used Tobacco 07/02/23 13:36 e-Cigarette/Vaping Use Never Used 07/02/23 13:36 PHQ-9: PHQ-9 Score PHQ-9: Total score 5 07/02/23 13:55 Depression Screening Interpretation: Negative Thrive Assessment: Date of Thrive Assessment Date Thrive assessed 07/02/23 07/02/23 13:36 Currently or been in a relationship where the following occur: no concerns reported Const Limitations: ambulation with cane Eyes General: appearance normal, both eyes and all related structures Eyelids: Yes eyelids normal Conjunctivae: conjunctivae normal Neck Neck: Yes normal visual inspection and Yes supple Resp Effort & Inspection: normal respiratory effort Auscultation: clear to auscultation bilaterally Cardio Jugular venous distension: no JVD Rate: regular rate Rhythm: regular rhythm Heart sounds: S1 normal heart sound present and S2 normal heart sound present Skin General skin exam: no rashes or lesions noted Neuro Speech: Abnormal speech present Motor exam (neuro): Abnormal motor strength present (right side 4/5 and left side 5/5) Extrem General: Yes full ROM Assessment and Plan Assessment & Plan (1) Persistent atrial fibrillation: Code(s): I48.19 - Other persistent atrial fibrillation Plan: Continue amiodarone and Eliquis. The goal is heart rate control. Follow-up with Cardiology. (2) Seizure as late effect of cerebrovascular accident (CVA): Code(s): I69.398 - Other sequelae of cerebral infarction; R56.9 - Unspecified convulsions Plan: Continue divalproex and Keppra. Follow-up with Neurology. (3) Congestive heart failure: Code(s): I50.9 - Heart failure, unspecified Qualifiers: Heart failure chronicity: acute on chronic Heart failure type: unspecified Qualified Code(s): I50.9 - Heart failure, unspecified Plan: Continue Entresto and bumetanide. The goal is to not gain 5 lb in a week. Follow-up with Cardiology. (4) Essential hypertension: Code(s): I10 - Essential (primary) hypertension Plan: Continue Entresto. Blood pressure goal is equal or less than 130/80. (5) Hemiplegia affecting right side in right-dominant patient as late effect of cerebrovascular disease: Code(s): I69.951 - Hemiplegia and hemiparesis following unspecified cerebrovascular disease affecting right dominant side Plan: Continue using the cane for gait stability. Continue family support and ESTHETICIAN/OWNER for basic activities of daily living. (6) CVA (cerebral vascular accident): Comment: 2021 Code(s): I63.9 - Cerebral infarction, unspecified Qualifiers: CVA mechanism: occlusion Precerebral and cerebral artery: middle cerebral artery Laterality of affected vessel: left Qualified Code(s): I63.512 - Cerebral infarction due to unspecified occlusion or stenosis of left middle cerebral artery Plan: Continue aspirin for secondary prophylaxis. Keep LDL less than 70. Keep blood pressure less than 130/80. (7) FRAN on CPAP: Code(s): G47.33 - Obstructive sleep apnea (adult) (pediatric) Plan: Continue CPAP use Orders: Orders Valproate Today I69.398 - Other sequelae of cerebral infarction, R56.9 - Unspecified convulsions Complete Blood Count Auto Diff Today I48.19 - Other persistent atrial fibrillation Thyroid Stimulating Hormone Today I48.19 - Other persistent atrial fibrillation XR KUB Today N20.0 - Calculus of kidney Levetiracetam Keppra Today I69.398 - Other sequelae of cerebral infarction, R56.9 - Unspecified convulsions NT-proBNP Today I50.9 - Heart failure, unspecified Comprehensive [place]. Panel Fast Today I50.9 - Heart failure, unspecified Coding Level of Care Code New Pt Level 4 (93904) Diagnoses Persistent atrial fibrillation I48.19 Seizure as late effect of cerebrovascular accident (CVA) I69.398; R56.9 Congestive heart failure I50.9 Heart failure chronicity: acute on chronic Heart failure type: unspecified Essential hypertension I10 Hemiplegia affecting right side in right-dominant patient as late effect of cerebrovascular disease I69.951 Cerebrovascular accident (CVA) due to occlusion of left middle cerebral artery I63.512 CVA mechanism: occlusion Precerebral and cerebral artery: middle cerebral artery Laterality of affected vessel: left FRAN on CPAP G47.33 Additional Codes FREEMAN-7 Assessment Billing - FREEMAN-7 Assessment Tool: FREEMAN-7 Assessment [id number] ([id number]) Time Spent (min) 32
[2023-07-02 13:23] VITALS: BP 106/70; BMI 33.4
== END 2023-07-02 14:05 | disposition home or self-care (01) ==
PROVIDERS: Visit Provider Internal Medicine
DX: I48.19 Other persistent atrial fibrillation (principal); I69.398 Other sequelae of cerebral infarction; I11.0 Hypertensive heart disease with heart failure; I50.9 Heart failure, unspecified; G47.33 Obstructive sleep apnea (adult) (pediatric)
CPT/HCPCS: 99204

== ENCOUNTER 2023-07-04 09:28 | Outpatient (REF) | payer OTHER, SELFPAY ==
--- NOTE | ~2023-07-04 | XR_ITS ---
EXAMINATION: XR ABDOMEN KUB CLINICAL INDICATION: Calculus of kidney. COMPARISON: Ultrasound abdomen of 12/23/2020. CT abdomen and pelvis 11/17/2020. TECHNIQUE: 4 AP supine views of the abdomen. FINDINGS: Degenerative changes in the imaged thoracolumbar spine. Lead partially imaged overlying the heart. Nonobstructive bowel gas pattern. [id number] amount of stool in the colon. Rounded calcification right upper quadrant may correlate with gallstones identified on prior exam. No definitive radiopaque renal calculi appreciated, although evaluation is limited due to overlying bowel. Moderate degenerative changes in the bilateral hips. XR/XR KUB IMPRESSION: 1. No definitive radiopaque renal calculi appreciated, although evaluation is limited due to overlying bowel. 2. Rounded calcification right upper quadrant may correlate with gallstones identified on prior exam.
[2023-07-04 09:45] LABS: MANUAL DIFF FLAG NO
[2023-07-04 10:00] LABS: Basophils Absolute Auto 0.1 X10*3/uL (0.0-0.2); Basophils Percent Auto 0.9 % (0-2); Eosinophils Absolute Auto 0.3 X10*3/uL (0.0-0.4); Eosinophils Percent Auto 6.3 % (0-4); Hemoglobin 13.4 g/dl (14.0-18.0); Imm Gran Abs Auto 0.04 X10*3/uL (0.00-0.03); Imm Gran Pct Auto 0.7 % (0.0-0.4); Lymphocytes Percent Auto 36.8 % (20-40); Mean Corpuscular HGB Conc 33.5 g/dl (31.0-36.0); Mean Corpuscular Hemoglobin 31.2 pg (27.0-33.0); Mean Corpuscular Volume 93.2 fL (80.0-98.0); Mean Platelet Volume 10.3 fL (9.4-12.4); Monocytes Absolute Auto 0.7 X10*3/uL (0.1-1.2); Neutrophils Absolute Auto 2.3 x10*3/uL (2.0-8.3); Neutrophils Percent Auto 43.3 % (45-73); Platelet Count 284 X10*3/uL (160-400); Red Blood Count 4.29 X10*6/uL (4.60-5.80); Red Cell Distribution Width 13.5 % (11.0-16.0); White Blood Count 5.4 X10*3/uL (4.8-10.8)
[2023-07-04 11:35] LABS: Alanine Aminotransferase 23 U/L (0-40); Albumin Level 3.6 g/dL (3.5-5.0); Alkaline Phosphatase 83 U/L (39-117); Anion Gap 12 (12-20); Aspartate Amino Transferase 25 U/L (5-37); Bilirubin Total 0.4 mg/dL (0.0-1.0); Blood Urea Nitrogen 17 mg/dL (9-16); Calcium 8.6 mg/dL (8.4-10.2); Carbon Dioxide 30 mmol/L (22-29); Chloride 108 mmol/L (96-108); Estimated Glomerular Filt Rate 40; Glucose Fasting 93 mg/dL (60-99); Potassium 3.5 mmol/L (3.3-5.1); Sodium 146 mmol/L (135-145); Total Protein 6.5 g/dL (6.5-8.0)
[2023-07-04 11:52] LABS: Thyroid Stimulating Hormone 0.26 uIU/mL (0.32-4.0)
[2023-07-04 12:35] LABS: Valproate 73.4 mcg/mL (50.0-100.0)
[2023-07-08 16:28] LABS: NT-proBNP 555 pg/mL (<125)
== END 2023-07-04 09:29 | disposition home or self-care (01) ==
LOC: HO.XRAY 09:28
PROVIDERS: PCP Internal Medicine; Visit Provider Internal Medicine
DX: I48.19 Other persistent atrial fibrillation (principal); I50.9 Heart failure, unspecified; I69.398 Other sequelae of cerebral infarction; R56.9 Unspecified convulsions; N20.0 Calculus of kidney
CPT/HCPCS: 36415; 74018; 80053; 80164; 80177; 83880; 84443; 85025

== ENCOUNTER 2023-07-16 13:02 | Outpatient (REF) | payer OTHER, SELFPAY ==
--- NOTE | 2023-07-16 13:05 | EEG_ITS ---
FINDINGS: The waking background activity consists of low voltage posterior 6 to 7 hertz theta intermixed anteriorly low-voltage fast frequencies. Photic stimulation and hyperventilation were omitted. No sleep stages were identified. IMPRESSION: This EEG is considered abnormal due to diffuse background slowing consistent with a diffuse encephalopathic process. No epileptiform discharges were seen. MD SILVESTRE Jean/EMA / [id number]
== END 2023-07-16 13:03 | disposition home or self-care (01) ==
LOC: HO.NEURO 13:02
PROVIDERS: PCP Internal Medicine; Visit Provider Psychiatry & Neurology Neurology
DX: I69.398 Other sequelae of cerebral infarction (principal); R56.9 Unspecified convulsions
CPT/HCPCS: 95816

== ENCOUNTER 2023-07-22 13:00 | Outpatient (AMB) | payer OTHER, SELFPAY ==
--- NOTE | 2023-07-22 13:10 | MHC.OFFVIS ---
Vital Signs 07/22/23 13:17 Height 5 ft 9 in Weight 218 lb 4 oz BMI 32.2 BP 134/72 Blood Pressure Location Lt brachial Position Sitting Pulse 60 Pulse Source Pulse Oximeter Pulse Oximetry (%) 100 Oxygen Delivery Method Room Air Intake Visit Reasons: 1 mo f/u - LVM w/address Intake Note: Patient presents for 1 month F/U. Allergies No Known Allergies [No Known Allergies*] Allergy (Verified 07/22/23 13:16) HPI Comments Details: 62 y/o male comes for follow up of seizure disorder. He is accompanied by his EQUIPMENT CLEANER AND TESTER who helps with history. Pt's EQUIPMENT CLEANER AND TESTER reports no seizure since the last visit. Pt's Keppra decreased to 500 mg BID due to significant behavior issue with keppra. And started Depakote 500 mg BID. He is on vitamin B 6 100 mg BID, and behavior disturbance has improved. He had a stroke in Mar 2021 - he had speech difficulty and right sided weakness. He had a large Left MCA stroke. He still has expressive aphasia and right sided weakness. He had a seizure in june of 2021- was admitted at [facility] and was started on Levetiracetam 500mg bid and has had total of 4 seizures since then (Gen tonic clonic seizures). He has h/o FRAN but noncompliant with CPAP. [facility] Medical History PAF (paroxysmal atrial fibrillation) Chronic heart failure DOT (acute kidney injury) Behavior disturbance Seizure as late effect of cerebrovascular accident (CVA) Restrictive lung disease Uncontrolled hypertension Acute decompensated heart failure Cerebrovascular accident CVA (cerebral vascular accident) Atrial fibrillation with rapid ventricular response Persistent atrial fibrillation Chronic systolic heart failure Gallstones CHF (congestive heart failure) Embolism of kidney CKD (chronic kidney disease), stage II Cardiac defibrillator in place NSVT (nonsustained ventricular tachycardia) NICM (nonischemic cardiomyopathy) Renal infarct Hypertension Surgical History History of cardiac defibrillator placement Family History Mother No problems noted. Father No problems noted. Other CAD (coronary artery disease) Social History Household Members: Unknown / Unable to assess Housing: Apartment Do you presently have visiting nurse or other home services: No Unable to assess alcohol history related to: Unknown Alcohol intake: never 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 Tobacco Use Status: Never used Tobacco e-Cigarette/Vaping Use: Never Used Second Hand Smoke Exposure: No Advance Directives Date on File: 10/18/20 service: Yes Current occupational status: unemployed Cognitive needs: Yes Hearing needs: No Vision needs: No Review of Systems Const All systems reviewed & are unremarkable except as noted in HPI and below Physical Exam Vital Signs: Last Vital Signs Pulse 60 07/22/23 13:17 BP 134/72 07/22/23 13:17 Pulse Ox 100 07/22/23 13:17 Oxygen Delivery Method Room Air 07/22/23 13:17 BMI result Body Mass Index 32.2 Const General: cooperative, healthy appearing, comfortable and no acute distress Nutritional Appearance: obese Orientation/consciousness: patient oriented x3 Eyes Pupils: Equal, round and reactive pupils present Neuro Other: Right UMN type facial paresis Right UE 4/5 Right LE 4/5 Tone mild increased right UE and LE Gait - mild circumduction right Speech- expressive aphasia ,decreased fluency General: patient oriented x3, moves all extremities and Normal light touch and pain sensation Cranial nerves: Yes Facial sensation intact/muscles of mastication intact, Yes Equal, round and reactive pupils present, Yes Bilaterally intact EOM present, Yes Nystagmus not present and Yes Symmetric palate elevation present Cognition (Neuro): normal cognition Motor exam (neuro): Normal motor muscle tone present throughout Deep tendon reflexes (DTR's): Right triceps reflex intensity grade: 2+, Left triceps reflex intensity grade: 1+, Rt Biceps (C5, C6): 2+, Left biceps reflex intensity grade: 1+, Right brachioradialis reflex intensity grade: 2+, Left brachioradialis reflex intensity grade: 1+, Right patellar reflex intensity grade: 2+ and Left patellar reflex intensity grade: 1+ Coordination: [id number] test normal Assessment & Plan Assessment & Plan (1) Seizure as late effect of cerebrovascular accident (CVA): Code(s): I69.398 - Other sequelae of cerebral infarction; R56.9 - Unspecified convulsions Category: Medical (2) Behavior disturbance: Comment: secondary to levetiracetam Code(s): F91.9 - Conduct disorder, unspecified Category: Medical Plan Continue to take levetiacetam 500mg bid along with depakote ER 500mg bid. Continue to take Vit B 6 100mg bid. Clonazepam 1mg as needed for seizures. Coding Level of Care Code Est Pt Level 3 (20467) Diagnoses Seizure as late effect of cerebrovascular accident (CVA) I69.398; R56.9 Behavior disturbance F91.9
[2023-07-22 13:17] VITALS: BP 134/72; PULSE 60; O2SAT 100; BMI 32.2
== END 2023-07-22 13:46 | disposition home or self-care (01) ==
PROVIDERS: PCP Internal Medicine; Visit Provider Nurse Practitioner Family
DX: I69.398 Other sequelae of cerebral infarction (principal); R56.9 Unspecified convulsions; F91.9 Conduct disorder, unspecified
CPT/HCPCS: 99213

== ENCOUNTER → 2023-07-22 13:00 | Outpatient (BNVA) | payer OTHER, SELFPAY | PROVIDERS: PCP Internal Medicine; Visit Provider Nurse Practitioner Family | DX: I69.398 Other sequelae of cerebral infarction (principal); R56.9 Unspecified convulsions; F91.9 Conduct disorder, unspecified | CPT/HCPCS: 99212 ==

== ENCOUNTER → 2023-08-19 09:33 | Outpatient (BNVA) | payer OTHER, MEDICARE, MEDICAID, SELFPAY | PROVIDERS: PCP Internal Medicine; Visit Provider Nurse Practitioner Family | DX: I13.0 Hypertensive heart and chronic kidney disease with heart failure and stage 1 through stage 4 chronic kidney disease, or unspecified chronic kidney disease (principal); E78.5 Hyperlipidemia, unspecified; N18.9 Chronic kidney disease, unspecified; I48.19 Other persistent atrial fibrillation; I42.8 Other cardiomyopathies; I50.9 Heart failure, unspecified; Z45.018 Encounter for adjustment and management of other part of cardiac pacemaker; Z95.810 Presence of automatic (implantable) cardiac defibrillator; Z79.899 Other long term (current) drug therapy; Z86.73 Personal history of transient ischemic attack (TIA), and cerebral infarction without residual deficits | CPT/HCPCS: 93005; 99212 ==

== ENCOUNTER 2023-08-19 09:34 | Outpatient (AMB) | payer OTHER, MEDICAID, SELFPAY ==
[2023-08-19 09:40] VITALS: BP 80/54; PULSE 58; BMI 31.6
--- NOTE | 2023-08-19 09:40 | MHC.OFFVIS ---
Vital Signs 08/19/23 09:40 Height 5 ft 9 in Weight 214 lb 4.629 oz BMI 31.6 BP 80/54 L Blood Pressure Location Lt brachial Position Sitting Pulse 58 Intake Visit Reasons: f/up-Pt BP been uncontrol Animal Surgeon Required: Yes Accompanied by: Employee Allergies No Known Allergies [No Known Allergies*] Allergy (Verified 07/22/23 13:16) Medication List - Last Reconciled 08/19/23 by KARON Romero acetaminophen 1,000 mg PO Q4H PRN amiodarone 200 mg PO DAILY apixaban (Eliquis) 5 mg PO BID aspirin 81 mg PO DAILY atorvastatin 80 mg PO BEDTIME benzonatate 100 mg PO TID PRN bumetanide 1 mg PO DAILY carvedilol 25 mg PO BID clonazepam 1 mg PO Q20M PRN divalproex ER (Depakote ER) 500 mg PO BID levetiracetam 500 mg PO BID levothyroxine 50 mcg PO DAILY 90 days methyl salicylate-menthol 15-10 % 1 appl topical 5XD PRN pyridoxine (vitamin B6) (Vitamin B-6) 100 mg PO BID sacubitril-valsartan 97-103 mg 1 tab PO BID HPI HPI f/up-Pt BP been uncontrol: Details: Donny is a 63 yo male with PMH of HTN, HLD, CKD, nonischemic CMP, HFrEF, NSVT, ICD placement, afib, CVA X2 03/2021 who presents for follow up.? Today he reports that his blood pressure has been variable at home. He has high readings at times with a systolic greater than 140. More often his readings have been low and his carvedilol is being held. [facility] his carvedilol from 25 mg b.i.d. down to 12.5 mg b.i.d.. Continues on Entresto. His is present and she reports that he does not drink much liquid. Is only drinking about a cup per day with his medications. He denies any concerning symptoms. No lightheadedness, presyncope, syncope, falls. No chest discomfort, shortness of breath, PND, orthopnea or edema. He still has some residual right-sided weakness from his last CVA. His speech is slightly slurred but very understandable. He has been taking his anticoagulation without any bleeding issues. Certified weekday babysitter used. [facility] Medical History PAF (paroxysmal atrial fibrillation) Chronic heart failure DOT (acute kidney injury) Behavior disturbance Seizure as late effect of cerebrovascular accident (CVA) Restrictive lung disease Uncontrolled hypertension Acute decompensated heart failure Cerebrovascular accident CVA (cerebral vascular accident) Atrial fibrillation with rapid ventricular response Persistent atrial fibrillation Chronic systolic heart failure Gallstones CHF (congestive heart failure) Embolism of kidney CKD (chronic kidney disease), stage II Cardiac defibrillator in place NSVT (nonsustained ventricular tachycardia) NICM (nonischemic cardiomyopathy) Renal infarct Hypertension Surgical History History of cardiac defibrillator placement Family History Mother No problems noted. Father No problems noted. Other CAD (coronary artery disease) Social History Household Members: Unknown / Unable to assess Housing: Apartment Do you presently have visiting nurse or other home services: No Unable to assess alcohol history related to: Unknown Alcohol intake: never 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 Tobacco Use Status: Never used Tobacco e-Cigarette/Vaping Use: Never Used Second Hand Smoke Exposure: No Advance Directives Date on File: 10/18/20 service: Yes Current occupational status: unemployed Cognitive needs: Yes Hearing needs: No Vision needs: No Review of Systems Const All systems reviewed & are unremarkable except as noted in HPI and below Denies chills, Denies fatigue, Denies fever(s), Denies frequent falls, Reports lethargy, Denies weakness, Denies weight gain and Denies weight loss ENT Denies dizziness Card Denies chest pain, Denies leg edema, Denies lightheadedness, Denies palpitations, Denies dyspnea and Denies dyspnea on exertion Resp Denies cough, Denies dyspnea and Denies dyspnea on exertion GI Denies hematochezia Musc Details: right sided weakness from prior CVA Denies abnormal gait, Reports muscle weakness, Denies numbness, Denies radiating pain into limb and Denies tingling Neuro Denies abnormal gait, Denies dizziness, Denies frequent falls, Denies numbness, Denies tingling and Denies weakness Endo Denies fatigue and Denies palpitations Physical Exam Vital Signs: Last Vital Signs Pulse 58 08/19/23 09:40 BP 80/54 L 08/19/23 09:40 BMI result Body Mass Index 31.6 Const General: cooperative, healthy appearing, comfortable and no acute distress Orientation/consciousness: patient oriented x3 Neck Neck: Yes normal visual inspection Chest Chest palpation & inspection: normal inspection of the chest Resp Effort & Inspection: normal respiratory effort Auscultation: clear to auscultation bilaterally, no rales, no rhonchi and no wheezes Cardio Jugular venous distension: no JVD Rate: regular rate Rhythm: regular rhythm Heart sounds: S1 normal heart sound present, S2 normal heart sound present, no murmurs and no rubs Neuro General: patient oriented x3 Extrem Other: mild right sided weakness, ambulates with cane General: Yes normal to inspection Psych Appearance: grossly normal Mental Status: mental status grossly normal Speech and movement: Normal speech and movement present Office Procedures Cardiac Device Check Cardiac Device Check Details: Interrogation today, read by me, [employer] single lead ICD, battery 11.3 years, RV threshold 0.875 volts at 0.4 milliseconds, VVI mode, low rate 40, no VT or VF, no AF, V paced 0.7% [id number] Cardiac Device Check, single lead implantable defibrillator Procedure code (CPT) selection complete EKG Details: Today, read by me, SR, first degree avb, left axis, left bundle branch block, rate 58, JT index 103.7 [id number], Complete Assessment & Plan Assessment & Plan (1) Persistent atrial fibrillation: Code(s): I48.19 - Other persistent atrial fibrillation Category: Medical Plan: History of persistent AFib since March 2021. He had a CVA at that time with residual aphasia and right-sided weakness, which has significantly improved. Was initially treated for heart rate control. He did undergo a cardioversion with Dr. Bobo in February 2022 and has maintained in sinus rhythm with use of amiodarone since that time. No reports of heart palpitations. EKG done today showing sinus bradycardia first-degree AV block, left bundle branch block, JT index 103.7, rate 58. Medtronic ICD interrogation shows no AFib. He will continue on amiodarone 200 mg daily, carvedilol. Labs done 06/19/22 shows TSH 8.4, LFTs were normal. He tells me that he saw his PCP recently and was just started on medication for hypothyroidism. He will be having a repeat TSH in the near future. Chest x-ray done on 07/04/2023 shows normal AST and ALT, TSH 0.26. He is on levothyroxine for hypothyroidism and is followed by his PCP. Chest x-ray done on 06/19/2023 shows no active disease. He is on Eliquis for anticoagulation. No reports of bleeding issues. Continue current med management without change. (2) NICM (nonischemic cardiomyopathy): Comment: Cardiac cath 08/14/16 showed only minimal luminal irregularities in RCA, nondominant vessel Code(s): I42.8 - Other cardiomyopathies Category: Medical Plan: History of nonischemic cardiomyopathy with ICD in place. Cardiac catheterization 08/14/2016 showed only minimal luminal irregularities in the RCA. Last echo 11/05/2022 shows EF 25-30%, moderately dilated left atrium, mild AR and MR, ascending aorta 4 cm, moderate loculated effusion near the left ventricle. No recent admissions for heart failure. No clinical signs of decompensated heart failure on examination He continues on neurohormonal modulation with Entresto, carvedilol. His blood pressure is low today. reports that patient drinks very minimal fluids. Will have him increase his fluid intake. Will reduce his Entresto dose down by half. His carvedilol was recently reduced from 25 mg b.i.d. done 12.5 mg b.i.d. by his PCP. Labs done on 07/04/2023 shows creatinine 1.72 which is similar to his prior values. Signs and symptoms of heart failure reviewed with him. Will update echo prior to his next visit. Cardiology follow-up in 3 months, sooner if needed (3) Congestive heart failure: Code(s): I50.9 - Heart failure, unspecified Category: Medical Qualifiers: Heart failure chronicity: acute on chronic Heart failure type: unspecified Qualified Code(s): I50.9 - Heart failure, unspecified Plan: Stable (4) History of cardiac defibrillator placement: Code(s): Z95.810 - Presence of automatic (implantable) cardiac defibrillator Category: Surgical Plan: Medtronic single lead ICD. Interrogation today shows device is functioning normally. Remote monitoring in use (5) Cerebrovascular accident: Code(s): I63.9 - Cerebral infarction, unspecified Category: Medical Plan: As above. Some residual right-sided weakness however ambulates with a cane Plan Time spent on chart review, documentation, interview and assessment Orders: Orders CA echo transthoracic complete 2 Months I42.8 - Other cardiomyopathies, I50.9 - Heart failure, unspecified Medications: New carvedilol must administer with a meal/food 12.5 mg PO BID 60 tabs 5RF sacubitril-valsartan 49-51 mg (Entresto) dose reduced 1 tab PO BID 60 tabs 5RF Discontinued carvedilol must administer with a meal/food Discontinued Reason: Change Referral Type 25 mg PO BID sacubitril-valsartan 97-103 mg Discontinued Reason: Doctor's Order 1 tab PO BID 100 tabs 3RF Coding Level of Care Code Est Pt Level 4 (77813) Diagnoses Persistent atrial fibrillation I48.19 NICM (nonischemic cardiomyopathy) I42.8 Congestive heart failure I50.9 Heart failure chronicity: acute on chronic Heart failure type: unspecified History of cardiac defibrillator placement Z95.810 Cerebrovascular accident I63.9 CPT Codes Cardiac Device Check - Cardiac Device 4: 20392-[id number] Cardiac Device Check, single lead implantable defibrillator ([id number]) EKG - CPT: 44199-[id number], Complete ([id number]) Time Spent (min) 30
== END 2023-08-19 10:49 | disposition home or self-care (01) ==
PROVIDERS: PCP Internal Medicine; Visit Provider Nurse Practitioner Family
DX: I48.19 Other persistent atrial fibrillation (principal); I42.8 Other cardiomyopathies; I50.9 Heart failure, unspecified; Z95.810 Presence of automatic (implantable) cardiac defibrillator; I63.9 Cerebral infarction, unspecified
CPT/HCPCS: 93010; 93282; 99214

== ENCOUNTER → 2023-09-13 23:59 | Outpatient (BNV) | payer OTHER, SELFPAY ==
--- NOTE | 2023-09-21 15:14 | MHC.OFFVIS ---
Intake Visit Reasons: Remote device check- [employer] Allergies No Known Allergies [No Known Allergies*] Allergy (Verified 09/16/23 11:40) [facility] Medical History PAF (paroxysmal atrial fibrillation) Chronic heart failure DOT (acute kidney injury) Behavior disturbance Seizure as late effect of cerebrovascular accident (CVA) Restrictive lung disease Uncontrolled hypertension Acute decompensated heart failure Cerebrovascular accident CVA (cerebral vascular accident) Atrial fibrillation with rapid ventricular response Persistent atrial fibrillation Chronic systolic heart failure Gallstones CHF (congestive heart failure) Embolism of kidney CKD (chronic kidney disease), stage II Cardiac defibrillator in place NSVT (nonsustained ventricular tachycardia) NICM (nonischemic cardiomyopathy) Renal infarct Hypertension Surgical History History of cardiac defibrillator placement Family History Mother No problems noted. Father No problems noted. Other CAD (coronary artery disease) Social History Household Members: Unknown / Unable to assess Housing: Apartment Do you presently have visiting nurse or other home services: No Unable to assess alcohol history related to: Unknown Alcohol intake: never 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 Tobacco Use Status: Never used Tobacco e-Cigarette/Vaping Use: Never Used Second Hand Smoke Exposure: No Advance Directives Date on File: 10/18/20 service: Yes Current occupational status: unemployed Cognitive needs: Yes Hearing needs: No Vision needs: No Office Procedures Cardiac Device Check Cardiac Device Check Details: ICD No new alerts Good battery life. 14876-IH Cardiac Device Check, single lead implantable defibrillator Procedure code (CPT) selection complete Assessment & Plan Assessment & Plan (1) ICD (implantable cardioverter-defibrillator) in place: Code(s): Z95.810 - Presence of automatic (implantable) cardiac defibrillator Category: Medical Plan: Coding Level of Care Code Procedure Only Diagnoses ICD (implantable cardioverter-defibrillator) in place Z95.810 CPT Codes Cardiac Device Check - Cardiac Device 4: 37783-EH Cardiac Device Check, single lead implantable defibrillator ([id number])
== END ==
PROVIDERS: PCP Internal Medicine; Visit Provider Internal Medicine Cardiovascular Disease
DX: Z95.810 Presence of automatic (implantable) cardiac defibrillator (principal)
CPT/HCPCS: 93282

== ENCOUNTER 2023-09-16 11:26 | Emergency (ER) | payer OTHER, SELFPAY ==
--- NOTE | ~2023-09-16 | CT_ITS ---
EXAMINATION: CT CERVICAL SPINE WITHOUT CONTRAST; UNENHANCED CT OF THE HEAD. CLINICAL INFORMATION: Neck trauma. Head trauma. COMPARISON: CT head and cervical spine 12/24/2022 TECHNIQUE: Routine unenhanced CT of the head with multiple coronal and sagittal reformatted images; routine unenhanced CT of the cervical spine with multiple coronal and sagittal reformatted images. This CT examination was performed using dose optimization techniques as appropriate, variously including the following: *Automated exposure control *Adjustment of mA and/or kV according to patient size (this includes techniques or standardized protocols for targeted exams where dose is matched to indication/reason for exam; i.e. extremities or head) *Use of iterative reconstruction technique DLP: 1394 mGy-cm FINDINGS: CT head: Patchy hypoattenuation is present in the ventral alberto and focal 5 mm cystic encephalomalacia is present in the parasagittal left ventral alberto consistent with a chronic lacunar infarct similar to findings present 12/24/2022. Extensive encephalomalacia is present in the expected territory of the left middle cerebral artery involving the left temporal, parietal, insular and frontal lobes unchanged in extent compared with 12/24/2022. Elsewhere the brain, mild subcortical and periventricular white matter patchy hypodensities are visualized suspicious for chronic microangiopathic ischemic changes. No intrarenal hemorrhage, tumors or definitive acute infarcts are visualized. The orbits and globes are normal in appearance. Mild extrarenal soft tissue inflammatory changes are present in the high left parietal region. No significant opacification of the visualized paranasal sinuses, mastoid air cells and middle ear cavities. CT cervical spine: No fractures or acute appearing subluxations identified. No prevertebral fluid collections or soft tissue inflammatory changes noted. Visualized lung apices are clear. Prominent anterior endplate osteophytosis is present at C7-T1. CT/CT cervical spine wo IV con IMPRESSION: CT HEAD: 1. No acute intracranial abnormalities. 2. Chronic left middle cerebral artery territory infarct unchanged compared with 12/24/2022. 3. Mild white matter chronic microangiopathic ischemic changes and chronic lacunar infarct of the alberto unchanged compared with 12/24/2022. CT CERVICAL SPINE: No acute abnormalities.
--- NOTE | ~2023-09-16 | XR_ITS ---
EXAMINATION: XR CHEST, 2 VIEWS CLINICAL INFORMATION: Chest pain and ankle swelling. Dyspnea. COMPARISON: 06/19/2023 TECHNIQUE: PA and lateral views of the chest were obtained. FINDINGS: Single lead left pectoral AICD is unchanged in position. Lungs are clear. No consolidation, pneumothorax, or pleural effusion. Cardiac and mediastinal contours are normal. Pulmonary vasculature is unremarkable. Trachea is midline. Degenerative disc disease is present in the thoracolumbar spine. Osteoarthritis is present in the acromioclavicular and glenohumeral joints. XR/XR chest 1V IMPRESSION: No acute pulmonary findings.
--- NOTE | ~2023-09-16 | XR_ITS ---
EXAMINATION: XR ANKLE, RIGHT CLINICAL INFORMATION: Chest pain and ankle swelling. COMPARISON: None available. TECHNIQUE: Four views of the right ankle. FINDINGS: Soft tissues are swollen at the ankle diffusely. No appreciable ankle joint effusion. There is a osseous fragment the dorsal margin of the navicular with correspond to an avulsion fracture. An os supranaviculare is also possible. No additional fractures are identified. No malalignment. Mild osteoarthritis the talocrural joint and at the naviculocuneiform joints. Large enthesopathic spur is present at the plantar fascial origin on the calcaneus. Atherosclerotic calcifications are present in the ankle. XR/XR ankle RT min 3V IMPRESSION: 1. Possible avulsion fracture at the dorsal margin of the navicular. Recommend correlation for point tenderness in this region. 2. Soft tissue swelling at the ankle. 3. Mild osteoarthritis at the talocrural joint and naviculocuneiform joints.
--- NOTE | 2023-09-16 11:37 | ED.WEAKNESS ---
HPI - Weakness General Chief complaint: Weakness Stated complaint: Multiple falls yest.Presenting w/weakness, per ems Time Seen by Provider: 09/16/23 11:34 Source: patient, family (WIRE BORDER ASSEMBLER), old records reviewed and freelance interpreter/translator Mode of arrival: EMS Limitations: no limitations History of Present Illness ED Provider: MARGI HPI Narrative: 63 yo male with PMH of hypothyroidism, CVA, FRAN on CPAP, CVA with R sided hemiparesis/aphasia, HTN, seizures, AICD, CHF, CKD, NICM EF 25-30%, afib on eliquis here with c/o weakness x 2 days, seizures x 2 yesterday GTC with incontinence and WIRE BORDER ASSEMBLER/family suspect he is not taking his nighttime medications though he took his AM dose. He fell x 2 yesterday injuring R ankle and possibly striking head. He has been more tired recently and has a poor appetite no fevers reported. He is at his neuro baseline at this time. MD Complaint: generalized weakness Onset (ago): day(s) (2) Duration: progressively worsening Location: generalized Severity: moderate Quality: dull Relieving factors: rest Exacerbating factors: movement and exertion Associated symptoms: loss of appetite Related Data Home Medications ?Medication ?Instructions ?Recorded ?Confirmed apixaban 5 mg tablet (Eliquis) 5 mg PO BID 07/02/21 08/19/23 atorvastatin 80 mg tablet 80 mg PO BEDTIME 07/02/21 08/19/23 acetaminophen 500 mg capsule 1,000 mg PO Q4H PRN fever or pain 06/20/23 08/19/23 aspirin 81 mg tablet,delayed 81 mg PO DAILY 06/20/23 08/19/23 release benzonatate 100 mg capsule 100 mg PO TID PRN Cough 06/20/23 08/19/23 clonazepam 1 mg tablet 1 mg PO Q20M PRN Seizure Activity 06/20/23 08/19/23 methyl salicylate 15 %-menthol 10 1 appl topical 5XD PRN Muscle Pain 06/20/23 08/19/23 % topical cream Previous Rx's ?Medication ?Instructions ?Recorded bumetanide 1 mg tablet 1 mg PO DAILY #30 tabs 01/30/22 amiodarone 200 mg tablet 200 mg PO DAILY #90 tabs 03/24/23 divalproex 500 mg tablet,extended 500 mg PO BID #60 tabs 06/03/23 release 24 hr (Depakote ER) levetiracetam 500 mg tablet 500 mg PO BID #60 tabs 06/03/23 pyridoxine (vitamin B6) 100 mg 100 mg PO BID #60 tabs 06/03/23 tablet (Vitamin B-6) levothyroxine 50 mcg tablet 50 mcg PO DAILY 90 days #90 tabs 07/06/23 carvedilol 12.5 mg tablet 12.5 mg PO BID #60 tabs 08/19/23 sacubitril 49 mg-valsartan 51 mg 1 tab PO BID #60 tabs 08/19/23 tablet (Entresto) Allergies Allergy/AdvReac Type Severity Reaction Status Date / Time No Known Allergies Allergy Verified 09/16/23 11:40 [No Known Allergies*] Review of Systems Review of Systems: ROS unable to be obtained due to aphasia [facility] Past Medical History Attestation statement: The following information was validated with the patient. Source: old records reviewed Medical History PAF (paroxysmal atrial fibrillation) Chronic heart failure DOT (acute kidney injury) Behavior disturbance Seizure as late effect of cerebrovascular accident (CVA) Restrictive lung disease Uncontrolled hypertension Acute decompensated heart failure Cerebrovascular accident CVA (cerebral vascular accident) Atrial fibrillation with rapid ventricular response Persistent atrial fibrillation Chronic systolic heart failure Gallstones CHF (congestive heart failure) Embolism of kidney CKD (chronic kidney disease), stage II Cardiac defibrillator in place NSVT (nonsustained ventricular tachycardia) NICM (nonischemic cardiomyopathy) Renal infarct Hypertension Surgical History History of cardiac defibrillator placement Family History Family History Mother No problems noted. Father No problems noted. 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 Tobacco Use Status: Never used Tobacco Smoked in Last 30 Days: No e-Cigarette/Vaping Use: Never Used Second Hand Smoke Exposure: No Use of substances other than those prescribed or required for medical reasons: No Advance Directives: Yes Advance Directives on File: Yes Advance Directives Date on File: 10/18/20 Do you have a plan to hurt others: No Plan service: Yes Current occupational status: unemployed Cognitive needs: Yes Hearing needs: No Vision needs: No Physical Exam Vital Signs: Vital Signs: Last Vital Signs Temp 97.4 F 09/16/23 13:49 Pulse 70 09/16/23 13:49 Resp 16 09/16/23 13:49 BP 139/73 09/16/23 13:49 Pulse Ox 99 09/16/23 13:49 O2 Del Method Room Air 09/16/23 13:49 BMI result Body Mass Index 31.2 Appearance: Alert. confused at baseline but seems to be himself per family. No acute distress. Eyes: Pupils equal, round and reactive to light. ENT: Pharynx normal. Neck: Normal inspection. Neck supple. CVS: Normal heart rate and rhythm. Pulses normal. Respiratory: No respiratory distress. Breath sounds normal. Abdomen: Soft and nontender. Rectal: light brown stool Skin: Skin warm and dry. Normal skin color. Normal skin turgor. Extremities: R ankle swelling and ttp along medial and lateral malleolus Neuro: aphasia, confused, R sided hemiparesis does have some movement Course Course Course Narrative: unexplained drop in hemoglobin Reevaluation(s) Reevaluation #1: after discussion with inpatient team will repeat H/H 9pm if further drop will admit signed out to Dr. Howell Medications Administered Discontinued Medications Generic Name Dose Route Start Last Admin Trade Name Gonzaloq PRN Reason Stop Dose Admin Potassium Chloride 20 meq 09/16/23 14:01 09/16/23 14:38 Potassium Chloride Packet 20 Meq Packet PO 09/16/23 14:02 20 meq ONCE ONE Administration Medical Decision Making Medical Decision Making MDM Narrative: 63 yo male with PMH of hypothyroidism, CVA, FRAN on CPAP, CVA with R sided hemiparesis/aphasia, HTN, seizures, AICD, CHF, CKD, NICM EF 25-30%, afib on eliquis here with increasing weakness and falls with 2 seizures yesterday WIRE BORDER ASSEMBLER and family note likely not compliant with night meds. He did take AM medications. Concern for R sided ankle injury and possible head injury - at this time labs, UA, CXR, ankle xray, CT head/cspine given falls and DOAC use. Wide differential given nonspecific weakness and 2 seizures yesterday where patient has been seizure free x 1 month. Differential Diagnosis Differential Diagnoses: The differential diagnosis associated with the presentation includes weakness, dehydration, anemia, head injury, encephalopathy Admission/Observation Consideration of admission/observation: Escalation of care including admission/observation considered given symptoms and unexplained drop in hemoglobin will attempt to admit him I cannot obtain ortho VS given his R sided hemiparesis K repleted, would recommend admission for H/H trend. Consult Healthcare Provider Management of the patient was discussed with: Hospitalist Lab Data MDM Lab Attestation statement: I reviewed the patient's lab results. 09/16/23 15:44 09/16/23 12:12 Labs: Lab Results 09/16/23 09/16/23 09/16/23 Range/Units 12:12 12:24 15:34 WBC 4.9 (4.8-10.8) X10*3/uL RBC 3.17 L D (4.60-5.80) X10*6/uL Hgb 11.0 L (14.0-18.0) g/dl Hct 32.1 L (42.0-52.0) % MCV 101.3 H (80.0-98.0) fL MCH 34.7 H (27.0-33.0) pg MCHC 34.3 (31.0-36.0) g/dl RDW 14.2 (11.0-16.0) % Plt Count 155 L D (160-400) X10*3/uL MPV 11.3 (9.4-12.4) fL Immature Gran % (Auto) 0.2 (0.0-0.4) % Neut % (Auto) 49.3 (45-73) % Lymph % (Auto) 30.6 (20-40) % [place] % (Auto) 18.7 H (2-11) % Eos % (Auto) 0.6 (0-4) % Baso % (Auto) 0.6 (0-2) % Lymph # (Auto) 1.5 (1.2-4.9) X10*3/uL [place] # (Auto) 0.9 (0.1-1.2) X10*3/uL Eos # (Auto) 0.0 (0.0-0.4) X10*3/uL Baso # (Auto) 0.0 (0.0-0.2) X10*3/uL Abs Immat Gran (auto) 0.01 (0.00-0.03) X10*3/uL Absolute Neuts (auto) 2.4 (2.0-8.3) x10*3/uL Absolute Nucleated RBC 0.000 (0.0-0.012) X10*3/uL Nucleated RBC % (auto) 0.0 (0.0-0.2) /100WBC PT 16.9 H (11.1-13.3) SEC INR 1.4 H (0.9-1.1) VBG pH 7.49 H (7.32-7.43) VBG pCO2 30 mmHg VBG pO2 84 mmHg VBG HCO3 23 (22-26) mmol/L VBG O2 Saturation 98.0 % VBG Base Excess 1.2 mmol/L Sodium 145 (135-145) mmol/L Potassium 3.2 L (3.3-5.1) mmol/L Chloride 111 H (96-108) mmol/L Carbon Dioxide 22 (22-29) mmol/L Anion Gap 15 (12-20) BUN 18 H (9-16) mg/dL Creatinine 1.49 H (0.5-1.4) mg/dL Estim Creat Clear Calc 56.4 Estimated GFR 47 Random Glucose 92 (60-115) mg/dL Lactic Acid 1.9 (0.5-2.0) mmol/L Calcium 8.3 L (8.4-10.2) mg/dL Magnesium 1.8 (1.6-2.6) mg/dL Total Bilirubin 1.1 H (0.0-1.0) mg/dL Direct Bilirubin 0.4 (0.0-0.5) mg/dL AST 35 (5-37) U/L ALT 32 (0-40) U/L Alkaline Phosphatase 79 (39-117) U/L Total Creatine Kinase 82 (38-174) U/L Troponin I High Sens 24.9 (<3.5-35.0) ng/L B-Natriuretic Peptide 421 H (<100) pg/mL Total Protein 5.5 L (6.5-8.0) g/dL Albumin 2.9 L (3.5-5.0) g/dL Lipase 10 (8-78) U/L TSH < 0.01 L (0.32-4.0) uIU/mL Free T4 1.82 (0.71-1.85) ng/dL Urine Color Dark Yellow Urine Appearance Cloudy Urine pH 6.0 (5.0-9.0) Ur Specific [place] >= 1.030 H (1.005-1.025) Urine Protein 30 (1+) H (Neg-Trace) mg/dL Urine Glucose (UA) 100 H (Negative) mg/dL Urine Ketones Trace (Negative) mg/dL Urine Blood Negative (Negative) Urine Nitrite Negative (Negative) Ur Leukocyte Esterase Trace H (Negative) Urine RBC 0-2 (0-2) /HPF Urine WBC 6-10 H (0-5) /HPF Ur Squamous Epith Cells 6-10 (0-2) /HPF Urine Bacteria None Seen (None Seen) Hyaline Casts 3-5 (0-2) /LPF Stool Occult Blood (NEGATIVE) Valproic Acid 80.4 (50.0-100.0) mcg/mL Influenza Type A (PCR) NEGATIVE (Negative) Influenza Type B (PCR) NEGATIVE (Negative) RSV RNA Qual (PCR) NEGATIVE (Negative) SARS-CoV-2 RNA (RT-PCR) NEGATIVE (Negative) 09/16/23 09/16/23 Range/Units 15:44 16:18 WBC 5.1 (4.8-10.8) X10*3/uL RBC 3.20 L (4.60-5.80) X10*6/uL Hgb 10.9 L (14.0-18.0) g/dl Hct 32.5 L (42.0-52.0) % MCV 101.6 H (80.0-98.0) fL MCH 34.1 H (27.0-33.0) pg MCHC 33.5 (31.0-36.0) g/dl RDW 14.1 (11.0-16.0) % Plt Count 141 L (160-400) X10*3/uL MPV 11.3 (9.4-12.4) fL Immature Gran % (Auto) (0.0-0.4) % Neut % (Auto) (45-73) % Lymph % (Auto) (20-40) % [place] % (Auto) (2-11) % Eos % (Auto) (0-4) % Baso % (Auto) (0-2) % Lymph # (Auto) (1.2-4.9) X10*3/uL [place] # (Auto) (0.1-1.2) X10*3/uL Eos # (Auto) (0.0-0.4) X10*3/uL Baso # (Auto) (0.0-0.2) X10*3/uL Abs Immat Gran (auto) (0.00-0.03) X10*3/uL Absolute Neuts (auto) (2.0-8.3) x10*3/uL Absolute Nucleated RBC 0.000 (0.0-0.012) X10*3/uL Nucleated RBC % (auto) 0.0 (0.0-0.2) /100WBC PT (11.1-13.3) SEC INR (0.9-1.1) VBG pH (7.32-7.43) VBG pCO2 mmHg VBG pO2 mmHg VBG HCO3 (22-26) mmol/L VBG O2 Saturation % VBG Base Excess mmol/L Sodium (135-145) mmol/L Potassium (3.3-5.1) mmol/L Chloride (96-108) mmol/L Carbon Dioxide (22-29) mmol/L Anion Gap (12-20) BUN (9-16) mg/dL Creatinine (0.5-1.4) mg/dL Estim Creat Clear Calc Estimated GFR Random Glucose (60-115) mg/dL Lactic Acid (0.5-2.0) mmol/L Calcium (8.4-10.2) mg/dL Magnesium (1.6-2.6) mg/dL Total Bilirubin (0.0-1.0) mg/dL Direct Bilirubin (0.0-0.5) mg/dL AST (5-37) U/L ALT (0-40) U/L Alkaline Phosphatase (39-117) U/L Total Creatine Kinase (38-174) U/L Troponin I High Sens (<3.5-35.0) ng/L B-Natriuretic Peptide (<100) pg/mL Total Protein (6.5-8.0) g/dL Albumin (3.5-5.0) g/dL Lipase (8-78) U/L TSH (0.32-4.0) uIU/mL Free T4 (0.71-1.85) ng/dL Urine Color Urine Appearance Urine pH (5.0-9.0) Ur Specific [place] (1.005-1.025) Urine Protein (Neg-Trace) mg/dL Urine Glucose (UA) (Negative) mg/dL Urine Ketones (Negative) mg/dL Urine Blood (Negative) Urine Nitrite (Negative) Ur Leukocyte Esterase (Negative) Urine RBC (0-2) /HPF Urine WBC (0-5) /HPF Ur Squamous Epith Cells (0-2) /HPF Urine Bacteria (None Seen) Hyaline Casts (0-2) /LPF Stool Occult Blood NEGATIVE (NEGATIVE) Valproic Acid (50.0-100.0) mcg/mL Influenza Type A (PCR) (Negative) Influenza Type B (PCR) (Negative) RSV RNA Qual (PCR) (Negative) SARS-CoV-2 RNA (RT-PCR) (Negative) Independent Interpretation I performed an independent interpretation of an: EKG, Plain X-Ray (possible avulsion fx - will place in shoe/cinthya wrap) and CT Scan (no trauma) Interpretation: Rate: 56 Rhythm: sinus bradycardia with 1st degree AVB [place]: left Normal P waves. 1st degree AVB LBBB ST T wave : no DANIELLA, nonspecific ST T wave changes and I and aVL, flat t waves lateral leads qTC: 449 prior studies: no change from prior The study has been interpreted contemporaneously by me. . Radiology Impression Discussion of test interpretation with radiology: I have reviewed the radiologist's reading. Independent Historian Clinical information obtained from an independent historian. History obtained from or confirmed by: Spouse, EMS and Other (WIRE BORDER ASSEMBLER) External Record Review External record reviewed: Inpatient record Procedures Orthopedic Splinting/Casting Injury #1: Side: right Lower Extremity Injury Location: foot Lower Extremity Immobilizer: post-op shoe Additional Comments: cinthya wrap Discharge Plan Discharge Clinical Impression: Weakness, Recurrent falls, Acute hypokalemia, Closed navicular fracture of right ankle, Anemia, Seizure Patient Disposition: Still a Patient Prescriptions: No Action amiodarone 200 mg tablet 200 mg PO DAILY Qty: 90 3RF levetiracetam 500 mg tablet 500 mg PO BID Qty: 60 6RF Rx Instructions: Take every morning 30 minutes before breakfast with a full glass of water pyridoxine (vitamin B6) [Vitamin B-6] 100 mg tablet 100 mg PO BID Qty: 60 6RF divalproex [Depakote ER] 500 mg tablet extended release 24 hr 500 mg PO BID Qty: 60 6RF levothyroxine 50 mcg tablet 50 mcg PO DAILY 90 Days Qty: 90 0RF atorvastatin 80 mg tablet 80 mg PO BEDTIME Eliquis 5 mg tablet 5 mg PO BID bumetanide 1 mg tablet 1 mg PO DAILY Qty: 30 0RF methyl salicylate-menthol 15-10 % Cream 1 appl TOPICAL 5XD PRN (Reason: Muscle Pain) aspirin 81 mg Tablet,Delayed Release (Dr/Ec) 81 mg PO DAILY benzonatate 100 mg Capsule 100 mg PO TID PRN (Reason: Cough) clonazepam 1 mg tablet 1 mg PO Q20M PRN (Reason: Seizure Activity) Rx Instructions: per [facility]: administer before bedtime acetaminophen 500 mg capsule 1,000 mg PO Q4H PRN (Reason: fever or pain) carvedilol 12.5 mg tablet 12.5 mg PO BID Qty: 60 5RF Rx Instructions: must administer with a meal/food Entresto 49-51 mg tablet 1 tab PO BID Qty: 60 5RF Rx Instructions: dose reduced Print Language: Romanian
[2023-09-16 11:39] VITALS: BP 133/77; PULSE 61; RESP 18; TEMP 36.2; O2SAT 98; BMI 31.2
--- NOTE | 2023-09-16 11:52 | ECG_ITS ---
Test Reason : WEAKNESS Blood Pressure : / mmHG Vent. Rate : 056 BPM Atrial Rate : 056 BPM P-R Int : 226 ms QRS Dur : 154 ms QT Int : 466 ms P-R-T Axes : 068 -34 139 degrees QTc Int : 449 ms Sinus bradycardia with 1st degree A-V block Left axis deviation Left bundle branch block Abnormal ECG When compared with ECG of 11-DEC-2022 17:05, Nonspecific T wave abnormality now evident in Inferior leads Nonspecific T wave abnormality now evident in Anterior leads QT has shortened Referred By: Blanca Ferrari Electronically Signed By:KAILYN MUHAMMAD MD
--- NOTE | 2023-09-16 11:52 | PC.NURSE ---
[facility] clerk cashier utilized. pt biba from home d/t increased weakness/falls/seizures/dizziness x a few days. per pt's AGRICULTURE TECHNICIAN/family - pt being disoriented/having expressive aphasia is pt's baseline. 2+ swelling noted to LLE. AGRICULTURE TECHNICIAN states pt started c/o increased pain in left foot post 2nd fall yesterday. -headstrike, -loc, +thinners. AGRICULTURE TECHNICIAN states pt has been somewhat noncompliant w/ seizure medication but took prescribed dose this morning. right sided facial/RUE twitching noted. no sob/wob noted. respirations even and unlabored. seizure pads in place for safety precautions. pt seen by ED provider/aware of plan of care. plan of care ongoing.
--- NOTE | 2023-09-16 12:23 | PC.NURSE ---
20gIV placed in the right hand - pt is a difficult stick. labs obtained/sent to lab. pt to CT at this time. plan of care ongoing.
[2023-09-16 12:36] LABS: MANUAL DIFF FLAG NO
[2023-09-16 12:41] LABS: VBG pCO2 30 mmHg; VBG pH 7.49 (7.32-7.43); VBG pO2 84 mmHg
[2023-09-16 12:42] LABS: VBG Base Excess 1.2 mmol/L; VBG HCO3 23 mmol/L (22-26); Venous Blood Gas Refer to POC result
[2023-09-16 12:48] LABS: INTERNATIONAL NORM RATIO 1.4 (0.9-1.1); Prothrombin Time 16.9 SEC (11.1-13.3)
[2023-09-16 12:50] LABS: Basophils Percent Auto 0.6 % (0-2); Eosinophils Percent Auto 0.6 % (0-4); Hematocrit 32.1 % (42.0-52.0); Imm Gran Abs Auto 0.01 X10*3/uL (0.00-0.03); Imm Gran Pct Auto 0.2 % (0.0-0.4); Lymphocytes Absolute Auto 1.5 X10*3/uL (1.2-4.9); Lymphocytes Percent Auto 30.6 % (20-40); Mean Corpuscular HGB Conc 34.3 g/dl (31.0-36.0); Mean Corpuscular Hemoglobin 34.7 pg (27.0-33.0); Mean Corpuscular Volume 101.3 fL (80.0-98.0); Mean Platelet Volume 11.3 fL (9.4-12.4); Monocytes Absolute Auto 0.9 X10*3/uL (0.1-1.2); Monocytes Percent Auto 18.7 % (2-11); Neutrophils Absolute Auto 2.4 x10*3/uL (2.0-8.3); Neutrophils Percent Auto 49.3 % (45-73); Platelet Count 155 X10*3/uL (160-400); Red Blood Count 3.17 X10*6/uL (4.60-5.80); Red Cell Distribution Width 14.2 % (11.0-16.0); White Blood Count 4.9 X10*3/uL (4.8-10.8)
[2023-09-16 12:58] LABS: Lactic Acid 1.9 mmol/L (0.5-2.0)
[2023-09-16 13:07] LABS: B Type Natriuretic Peptide 421 pg/mL (<100); Troponin-I High Sensitivity 24.9 ng/L (<3.5-35.0)
[2023-09-16 13:16] LABS: Influenza A PCR NEGATIVE (Negative); Influenza B PCR NEGATIVE (Negative); Resp Syncy Virus RNA Qual PCR NEGATIVE (Negative); SARS COV2 PCR INHOUSE NEGATIVE (Negative)
[2023-09-16 13:22] LABS: TSH reflex Free T4 < 0.01 uIU/mL (0.32-4.0)
[2023-09-16 13:41] LABS: Alanine Aminotransferase 32 U/L (0-40); Albumin Level 2.9 g/dL (3.5-5.0); Alkaline Phosphatase 79 U/L (39-117); Anion Gap 15 (12-20); Aspartate Amino Transferase 35 U/L (5-37); Bilirubin Direct 0.4 mg/dL (0.0-0.5); Bilirubin Total 1.1 mg/dL (0.0-1.0); Blood Urea Nitrogen 18 mg/dL (9-16); Calcium 8.3 mg/dL (8.4-10.2); Carbon Dioxide 22 mmol/L (22-29); Chloride 111 mmol/L (96-108); Creatinine Clr Calc Pharmacy 56.4; Estimated Glomerular Filt Rate 47; Glucose Random 92 mg/dL (60-115); Lipase 10 U/L (8-78); Magnesium 1.8 mg/dL (1.6-2.6); Potassium 3.2 mmol/L (3.3-5.1); Sodium 145 mmol/L (135-145); Total Protein 5.5 g/dL (6.5-8.0)
[2023-09-16 13:49] VITALS: BP 139/73; PULSE 70; RESP 16; TEMP 36.3; O2SAT 99
[2023-09-16 14:20] LABS: Valproate 80.4 mcg/mL (50.0-100.0)
[2023-09-16] MEDS: Potassium Chloride Packet 20 MEQ PACKET PO (14:38)
[2023-09-16 14:59] LABS: Free T4 (Free Thyroxine) 1.82 ng/dL (0.71-1.85)
[2023-09-16 15:43] LABS: Appearance Urine Cloudy; Color Urine Dark Yellow; Glucose Urine UA 100 mg/dL (Negative); Leukocyte Esterase Urine Trace (Negative); Nitrite Urine Negative (Negative); Specific Gravity - Urine >= 1.030 (1.005-1.025); UMIC TRIGGER UACC YES; Urine Blood Negative (Negative); Urine Ketones Trace mg/dL (Negative); Urine Protein 30 (1+) mg/dL (Neg-Trace)
--- NOTE | 2023-09-16 15:48 | PC.NURSE ---
UA/labs obtained/sent to lab. delay in obtaining labs d/t pt being difficult stick.
[2023-09-16 15:50] LABS: Bacteria Urine None Seen (None Seen); RBC Urine 0-2 /HPF (0-2); UACC Culture Trigger YES
[2023-09-16 15:54] LABS: Hemoglobin 10.9 g/dl (14.0-18.0); PLT CLUMP 1
[2023-09-16 15:56] LABS: Hematocrit 32.5 % (42.0-52.0); Mean Corpuscular HGB Conc 33.5 g/dl (31.0-36.0); Mean Corpuscular Hemoglobin 34.1 pg (27.0-33.0); Mean Corpuscular Volume 101.6 fL (80.0-98.0); Mean Platelet Volume 11.3 fL (9.4-12.4); Red Cell Distribution Width 14.1 % (11.0-16.0); White Blood Count 5.1 X10*3/uL (4.8-10.8)
[2023-09-16 15:57] LABS: Platelet Count 141 X10*3/uL (160-400)
--- NOTE | 2023-09-16 16:17 | PC.NURSE ---
pt's labs noted to be trending downward. obsx1 performed by dr. luo and sent to lab. plan of care ongoing.
[2023-09-16 16:26] LABS: OBS Int Ctl Valid YES; OBS1 NEGATIVE (NEGATIVE)
[2023-09-16 16:39] LABS: Procalcitonin 0.06 ng/mL
[2023-09-16 17:33] VITALS: BP 149/82; PULSE 54; RESP 17; TEMP 36.4; O2SAT 100
--- NOTE | 2023-09-16 17:35 | PC.NURSE ---
post op boot applied to right ankle. pt tolerated well.
--- NOTE | 2023-09-16 18:24 | PC.NURSE ---
attempted to complete med rec - pt is poor historian and does not know medications that he takes. pt's /WORKPLACE REHABILITATION OFFICER also unaware on what medications he takes. [facility] called by this RN - only able to name two medications. pt's states he takes more than 2. [place] in [place] also called by this RN x 2 but was unsuccessful. will attempt to have pharmacy complete med rec.
[2023-09-16 19:47] LABS: PLT CLUMP 1
[2023-09-16 19:49] LABS: Mean Corpuscular HGB Conc 33.3 g/dl (31.0-36.0); Mean Corpuscular Volume 101.9 fL (80.0-98.0); Mean Platelet Volume 11.2 fL (9.4-12.4); Red Blood Count 3.24 X10*6/uL (4.60-5.80)
[2023-09-16 20:35] LABS: Platelet Count 138 X10*3/uL (160-400); White Blood Count 5.4 X10*3/uL (4.8-10.8)
[2023-09-16 22:10] VITALS: BP 156/89; PULSE 64; RESP 16; TEMP 36.6; O2SAT 97
--- NOTE | 2023-09-16 22:16 | MHC.CM.ED ---
CM met with patient at the request of Dr. Howell. Pt lives alone, but girlfriend cares for him. States she is always there, but also has her own apartment. Pt uses a walker. He has CVA w R hemiparesis and aphasia and recent falls. Had long medical history. Pt refuses PT consult with STR. Both patient and girlfriend agree to home with PT. Girlfriend is Aixa Francisco ([phone]). He did have a CHILD CARE AIDE, but no longer has MH, so his CHILD CARE AIDE was discharged per patient and girlfriend. Pt has a R navicular FX. Has a walking boot. Per ortho, bear weight as tolerated. PCP is Dr. Brian Fuentes and [place] PCP is Sindy in [place]. Pt uses the [place] pharmacy and [facility] on [address] [facility] [address]. Pt has used [facility] in the past and would like home services/PT. Pt has hx of some medication non-compliance. Will place referral with [facility] for shelter, medication and chronic disease management and PT evaluation. BLS transport had been arranged prior to CM consult. F2F completed and uploaded to [facility] via [employer].
[2023-09-16 22:22] VITALS: BP 156/89; PULSE 64; RESP 16; TEMP 36.6; O2SAT 97
== END 2023-09-16 22:23 | disposition home or self-care (01) ==
PROVIDERS: Emergency Provider Emergency Medicine; PCP Internal Medicine
DX: E87.6 Hypokalemia (principal); R56.9 Unspecified convulsions; S82.891A Other fracture of right lower leg, initial encounter for closed fracture; X58.XXXA Exposure to other specified factors, initial encounter; Y93.9 Activity, unspecified; Y92.9 Unspecified place or not applicable; Y99.9 Unspecified external cause status; Z91.81 History of falling; I69.951 Hemiplegia and hemiparesis following unspecified cerebrovascular disease affecting right dominant side; I69.920 Aphasia following unspecified cerebrovascular disease; I13.0 Hypertensive heart and chronic kidney disease with heart failure and stage 1 through stage 4 chronic kidney disease, or unspecified chronic kidney disease; N18.2 Chronic kidney disease, stage 2 (mild); I50.9 Heart failure, unspecified; I48.91 Unspecified atrial fibrillation; D63.1 Anemia in chronic kidney disease; Z79.01 Long term (current) use of anticoagulants; G47.33 Obstructive sleep apnea (adult) (pediatric); Z99.89 Dependence on other enabling machines and devices; Z03.818 Encounter for observation for suspected exposure to other biological agents ruled out
CPT/HCPCS: 0241U; 36415; 70450; 71045; 72125; 73610; 80048; 80076; 80164; 81001; 82272; 82550; 82803; 83605; 83690; 83735; 83880; 84145; 84439; 84443; 84484; 85025; 85027; 85610; 86850; 86900; 86901; 87040; 87086; 93005; 99285

== ENCOUNTER → 2023-09-16 11:52 | Outpatient (BNV) | payer OTHER, SELFPAY | PROVIDERS: Emergency Provider Emergency Medicine; PCP Internal Medicine; Visit Provider Internal Medicine Cardiovascular Disease | DX: R94.31 Abnormal electrocardiogram [ECG] [EKG] (principal) | CPT/HCPCS: 93010 ==

== ENCOUNTER 2023-09-25 10:27 | Inpatient (IN) | payer OTHER, SELFPAY ==
[2023-09-25] VITALS (8 sets, daily range): BP systolic 100–123; BP diastolic 56–67; PULSE 50–58; RESP 11–18; TEMP 36.4–36.7; O2SAT 96–100; BMI 34.8
--- NOTE | 2023-09-25 | EEG_ITS ---
This is a 16-channel EEG with an EKG lead. The patient is reported awake during the tracing. Background EEG rhythm is low amplitude fast with no obvious asymmetry or paroxysmal tendency. Photic stimulation does not produce any significant abnormality. Hyperventilation is not performed. No sharp wave spikes or paroxysmal tendency noted. IMPRESSION: No significant abnormality noted on this EEG. MD MARQUEZ Ocampo/EMA / [id number]
--- NOTE | ~2023-09-25 | CT_ITS ---
EXAMINATION: CT HEAD WITHOUT CONTRAST CLINICAL INFORMATION: Seizure. Falls. Patient on Eliquis. COMPARISON: CT head from 09/16/2023. TECHNIQUE: Contiguous axial imaging was performed from the skull base to vertex without intravenous administration of contrast. This CT examination was performed using dose optimization techniques as appropriate, variously including the following: *Automated exposure control. *Adjustment of mA and/or kV according to patient size (this includes techniques or standardized protocols for targeted exams where dose is matched to indication/reason for exam; i.e. extremities or head). *Use of iterative reconstruction technique. DLP: 782 mGy-cm FINDINGS: There is chronic encephalomalacia within the left MCA territory with associated volume loss (predominantly involving the lateral aspects of the left frontal lobe, left insula, left lentiform/caudate nuclei, and left temporal lobe). No additional loss of bhakta-white matter differentiation. No evidence of acute intracranial hemorrhage. There is no abnormal attenuation within the brain parenchyma. The ventricles are normal in morphology and size. No evidence for obstructive hydrocephalus. No abnormal mass effect. Stable 0.5 cm leftward midline shift. No extra-axial fluid collections. No acute soft tissue or osseous abnormalities. Mild mucosal thickening of the paranasal sinuses. The mastoid air cells and middle ear cavities are clear. CT/CT head/brain wo IV con IMPRESSION: 1. No evidence of acute intracranial hemorrhage or edematous territorial infarction. 2. Chronic encephalomalacia of the left MCA territory.
--- NOTE | ~2023-09-25 | XR_ITS ---
EXAMINATION: XR CHEST CLINICAL INFORMATION: Seizure disorder. Difficulty breathing COMPARISON: 09/16/2023 TECHNIQUE: Frontal view of the chest was obtained. FINDINGS: Heart size borderline with normal caliber pulmonary vessels. Lungs grossly clear. Left-sided pacer stable in position. XR/XR chest 1V IMPRESSION: No active disease. No acute pulmonary findings.
--- NOTE | 2023-09-25 10:36 | ECG_ITS ---
Test Reason : BRADYCARDIA Blood Pressure : / mmHG Vent. Rate : 054 BPM Atrial Rate : 054 BPM P-R Int : 202 ms QRS Dur : 150 ms QT Int : 602 ms P-R-T Axes : 069 -40 117 degrees QTc Int : 570 ms Sinus bradycardia Left axis deviation Left bundle branch block Abnormal ECG When compared with ECG of 16-SEP-2023 12:00, QT has lengthened (difficult to calculate QT) Referred By: Jessica Valle Electronically Signed By:KEITH ARANDA
--- NOTE | 2023-09-25 10:40 | ED_ITS ---
HPI - Seizure General Chief Complaint: Seizure Stated Complaint: ?SZ,LOW BP 50/33 PER EMS Time Seen by Provider: 09/25/23 10:34 Source: patient, family, EMS, RN notes reviewed, old records reviewed and official court interpreter Mode of arrival: EMS Limitations: language barrier and altered mental status History of Present Illness ED Provider: Alec Valle PA-C HPI Narrative: 63-year-old [place] Islander-speaking male with a history of CVA with right-sided hemiparesis, nonischemic cardiomyopathy with EF 25-30% with AICD, AFib on Eliquis, FRAN on CPAP, seizure disorder, recurrent falls, HTN, kidney stones who presents to the ER from home via EMS for evaluation of a witnessed seizure at home. Per EMS patient was at the table eating when he had a witnessed tonic- clonic seizure of unknown duration. On EMS arrival patient was notably hypotensive to 50/33 with no palpable radial pulse. He was saturating well on room air w/ HR 50s, LBBB on the monitor. IV was established and he was infused 300 cc of normal saline with improvement in blood pressure to 100/67. On arrival to the ER patient is awake, alert, oriented to self. He is confused to situation and place. Patient's and stepdaughter at the bedside to help provide additional history. They report seizure activity was at least a couple of minutes. No fall or trauma out of the chair. was able to hold him in the chair until EMS arrived. is adamant about medication compliance and has been monitoring his pillbox and medication administration. They report he was here last week and had 2 seizures last week. He fell at that time. They state he follows with a neurologist in [place]. They last saw them in May and medication was adjusted at that time. Seizure frequency has been increasing per family. Family reports he has been constipated lately and did have a bowel movement yesterday. He has not had any fever, chills, cough, abdominal pain, diarrhea, vomiting, urinary symptoms. Family reports that he has been inadvertently getting a higher dose of Coreg at home. He is supposed to be getting 12.5 mg and stepdaughter thinks that the [employer] has been giving 25 mg instead. complaint: seizure Onset (ago): hour(s) (1) Description of Episode: tonic-clonic movement and post-event confusion -: minutes(s) Witnessed: Yes - by Bystander Trauma: No Seizure History: Yes Place: Home Possible Precipitating Event: none Associated symptoms: confusion Treatments prior to arrival: other (IV fluids) Related Data Home Medications ?Medication ?Instructions ?Recorded ?Confirmed apixaban 5 mg tablet (Eliquis) 5 mg PO BID 07/02/21 09/25/23 atorvastatin 80 mg tablet 80 mg PO BEDTIME 07/02/21 09/25/23 acetaminophen 500 mg capsule 1,000 mg PO Q4H PRN fever or pain 06/20/23 08/19/23 aspirin 81 mg tablet,delayed 81 mg PO DAILY 06/20/23 09/25/23 release benzonatate 100 mg capsule 100 mg PO TID PRN Cough 06/20/23 08/19/23 clonazepam 1 mg tablet 1 mg PO Q20M PRN Seizure Activity 06/20/23 09/25/23 methyl salicylate 15 %-menthol 10 1 appl topical 5XD PRN Muscle Pain 06/20/23 08/19/23 % topical cream amiodarone 200 mg tablet 400 mg PO DAILY 09/25/23 09/25/23 levetiracetam 500 mg tablet 500 mg PO BID 09/25/23 09/25/23 levothyroxine 50 mcg tablet 50 mcg PO DAILY 09/25/23 09/25/23 Previous Rx's ?Medication ?Instructions ?Recorded bumetanide 1 mg tablet 1 mg PO DAILY #30 tabs 01/30/22 divalproex 500 mg tablet,extended 500 mg PO BID #60 tabs 06/03/23 release 24 hr (Depakote ER) pyridoxine (vitamin B6) 100 mg 100 mg PO BID #60 tabs 06/03/23 tablet (Vitamin B-6) carvedilol 12.5 mg tablet 12.5 mg PO BID #60 tabs 08/19/23 sacubitril 49 mg-valsartan 51 mg 1 tab PO BID #60 tabs 08/19/23 tablet (Entresto) Allergies Allergy/AdvReac Type Severity Reaction Status Date / Time No Known Allergies Allergy Verified 09/25/23 10:59 [No Known Allergies*] Review of Systems 2 Review of Systems: Yes Unobtainable due to mental status PMFSH Past Medical History Medical History PAF (paroxysmal atrial fibrillation) Chronic heart failure DOT (acute kidney injury) Behavior disturbance Seizure as late effect of cerebrovascular accident (CVA) Restrictive lung disease Uncontrolled hypertension Acute decompensated heart failure Cerebrovascular accident CVA (cerebral vascular accident) Atrial fibrillation with rapid ventricular response Persistent atrial fibrillation Chronic systolic heart failure Gallstones CHF (congestive heart failure) Embolism of kidney CKD (chronic kidney disease), stage II Cardiac defibrillator in place NSVT (nonsustained ventricular tachycardia) NICM (nonischemic cardiomyopathy) Renal infarct Hypertension Surgical History History of cardiac defibrillator placement Family History Family History Mother No problems noted. Father No problems noted. 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 Tobacco Use Status: Never used Tobacco e-Cigarette/Vaping Use: Never Used Second Hand Smoke Exposure: No Advance Directives: Yes Advance Directives on File: Yes Advance Directives Date on File: 10/18/20 service: Yes Current occupational status: unemployed Cognitive needs: Yes Hearing needs: No Vision needs: No Physical Exam 2 Vital Signs: Vital Signs: Last Vital Signs Temp 97.6 F 09/25/23 14:18 Pulse 57 09/25/23 14:18 Resp 11 L 09/25/23 14:18 BP 119/67 09/25/23 13:50 Pulse Ox 100 09/25/23 14:18 O2 Del Method Nasal Cannula 09/25/23 13:50 O2 Flow Rate 2.5 09/25/23 14:18 Oxygen Flow Rate 4 09/25/23 10:31 BMI result Body Mass Index 34.8 Appearance: Alert, pale, Oriented X1. Appears unwell. Head: normocephalic, atraumatic. Eyes: Pupils equal, round and reactive to light. ENT: Pharynx normal. No tonsillar swelling or exudate. Neck: Normal inspection. Neck supple. CVS: Normal heart rate and rhythm. Pulses normal. Respiratory: No respiratory distress. Breath sounds normal. AICD on left chest wall Abdomen: Obese, Soft and nontender. +BS x4 Skin: Skin warm and dry. Normal skin color. Normal skin turgor. No rashes. Extremities: No lower extremity edema. No joint swelling. Neuro/psych: Oriented X 1. Right sided weakness > left sided weakness in UE. able to follow simple commands. confused. Medications Administered Discontinued Medications Generic Name Dose Route Start Last Admin Trade Name Jacqui PRN Reason Stop Dose Admin Levetiracetam 1,000 mg in 100 mls @ 400 mls/hr 09/25/23 10:35 09/25/23 11:36 Keppra IV 09/25/23 10:49 Infused ONCE ONE Infusion Sodium Chloride 1,000 mls @ 999 mls/hr 09/25/23 10:45 09/25/23 12:05 Ns IVCONT 09/25/23 11:45 Infused .Q1H1M NENA Infusion Magnesium Sulfate 2 gm in 50 mls @ 150 mls/hr 09/25/23 11:07 09/25/23 11:35 Magnesium Sulfate/H2o IV 09/25/23 11:26 Infused ONCE ONE Infusion Medical Decision Making Medical Decision Making MDM Narrative: 63-year-old [place] Islander-speaking male with a history of CVA with right-sided hemiparesis, nonischemic cardiomyopathy with EF 25-30% with AICD, AFib on Eliquis, FRAN on CPAP, seizure disorder, recurrent falls, HTN, kidney stones who presents to the ER from home via EMS for evaluation of a witnessed seizure at home. Seizure was tonic-clonic per patient's , lasted a few minutes in duration, no trauma. Patient was seen here on 09/15, had 2 seizures on 09/14. Initially very hypertensive in the field, improved with some IV fluids. Arrival to the ER patient is confused, pale, acutely ill-appearing. His blood pressure is low 100 systolic. History obtained with patient's who reports medication compliance. Concern for ongoing seizures despite medication compliance and no obvious etiology for his recurrent seizures. He is very high risk, being on Eliquis with recent falls. CT scan of the head was ordered. Lab workup showing a therapeutic Depakote level. His EKG had QTC prolongation of 570ms. 2 g of IV magnesium were ordered. Patient had AICD interrogation 4 days ago that was unremarkable. Labs showing very mildly elevated lactic acid, likely due to seizure. No evidence of infection at this time. Urinalysis is negative. H&H remains lower than his baseline but stable from last week. No evidence of acute bleeding. Will plan to admit the patient for further management of recurrent seizures. Differential Diagnosis Differential Diagnoses: The differential diagnosis associated with the presentation includes Recurrent breakthrough seizures, medication noncompliance, status epilepticus, ICH/SAH, CVA Admission/Observation Consideration of admission/observation: Escalation of care including admission/observation considered Consult Healthcare Provider Management of the patient was discussed with: Hospitalist Lab Data MDM Lab Attestation statement: I reviewed the patient's lab results. Pancytopenia, CKD at baseline, mild elevation in lactic acid, corrected calcium is 8.6 and normal. Mild elevation in transaminases, BNP elevation is stable from prior. Magnesium is low 1.4 09/25/23 10:51 09/25/23 10:51 Labs: Lab Results 09/25/23 09/25/23 09/25/23 Range/Units 10:51 10:52 13:52 WBC 4.3 L (4.8-10.8) X10*3/uL RBC 3.04 L (4.60-5.80) X10*6/uL Hgb 10.5 L (14.0-18.0) g/dl Hct 30.9 L (42.0-52.0) % MCV 101.6 H (80.0-98.0) fL MCH 34.5 H (27.0-33.0) pg MCHC 34.0 (31.0-36.0) g/dl RDW 14.2 (11.0-16.0) % Plt Count 143 L (160-400) X10*3/uL MPV 10.5 (9.4-12.4) fL Immature Gran % (Auto) 0.2 (0.0-0.4) % Neut % (Auto) 44.9 L (45-73) % Lymph % (Auto) 39.4 (20-40) % Gray % (Auto) 13.8 H (2-11) % Eos % (Auto) 1.2 (0-4) % Baso % (Auto) 0.5 (0-2) % Lymph # (Auto) 1.7 (1.2-4.9) X10*3/uL Gray # (Auto) 0.6 (0.1-1.2) X10*3/uL Eos # (Auto) 0.1 (0.0-0.4) X10*3/uL Baso # (Auto) 0.0 (0.0-0.2) X10*3/uL Abs Immat Gran (auto) 0.01 (0.00-0.03) X10*3/uL Absolute Neuts (auto) 1.9 L (2.0-8.3) x10*3/uL Absolute Nucleated RBC 0.000 (0.0-0.012) X10*3/uL Nucleated RBC % (auto) 0.0 (0.0-0.2) /100WBC Sodium 143 (135-145) mmol/L Potassium 3.8 (3.3-5.1) mmol/L Chloride 110 H (96-108) mmol/L Carbon Dioxide 25 (22-29) mmol/L Anion Gap 12 (12-20) BUN 18 H (9-16) mg/dL Creatinine 1.55 H (0.5-1.4) mg/dL Estim Creat Clear Calc 50.3 Estimated GFR 45 Random Glucose 104 (60-115) mg/dL Lactic Acid 2.1 H* (0.5-2.0) mmol/L Lactic Acid F/U @ 2Hr (0.5-2.0) mmol/L Calcium 7.7 L D (8.4-10.2) mg/dL Magnesium 1.4 L* (1.6-2.6) mg/dL Total Bilirubin 1.2 H (0.0-1.0) mg/dL Direct Bilirubin 0.4 (0.0-0.5) mg/dL AST 53 H (5-37) U/L ALT 45 H (0-40) U/L Alkaline Phosphatase 85 (39-117) U/L Total Creatine Kinase 42 (38-174) U/L Troponin I High Sens 24.2 (<3.5-35.0) ng/L B-Natriuretic Peptide 444 H (<100) pg/mL Total Protein 5.5 L (6.5-8.0) g/dL Albumin 2.9 L (3.5-5.0) g/dL TSH < 0.01 L (0.32-4.0) uIU/mL Free T4 1.70 (0.71-1.85) ng/dL Urine Color Yellow Urine Appearance Clear Urine pH 7.5 (5.0-9.0) Ur Specific Wykoff 1.010 (1.005-1.025) Urine Protein Negative (Neg-Trace) mg/dL Urine Glucose (UA) Negative (Negative) mg/dL Urine Ketones Negative (Negative) mg/dL Urine Blood Negative (Negative) Urine Nitrite Negative (Negative) Ur Leukocyte Esterase Negative (Negative) Urine Opiates Screen Not Detected (Not Detect) Ur Buprenorphine Scrn Not Detected (Not Detect) ng/mL Ur Oxycodone Screen Not Detected (Not Detect) ng/mL Urine Methadone Screen Not Detected (Not Detect) ng/mL Urine Fentanyl Screen Not Detected (Not Detect) Ur Barbiturates Screen Not Detected (Not Detect) Valproic Acid 70.5 (50.0-100.0) mcg/mL Ur Phencyclidine Scrn Not Detected (Not Detect) Ur Amphetamines Screen Not Detected (Not Detect) U Benzodiazepines Scrn Not Detected (Not Detect) Urine Cocaine Screen Not Detected (Not Detect) U Marijuana (THC) Screen Not Detected (Not Detect) Ethyl Alcohol < 10 mg/dL Influenza Type A (PCR) NEGATIVE (Negative) Influenza Type B (PCR) NEGATIVE (Negative) RSV RNA Qual (PCR) NEGATIVE (Negative) SARS-CoV-2 RNA (RT-PCR) NEGATIVE (Negative) Blood Type B Positive Antibody Screen NEGATIVE 09/25/23 Range/Units 14:16 WBC (4.8-10.8) X10*3/uL RBC (4.60-5.80) X10*6/uL Hgb (14.0-18.0) g/dl Hct (42.0-52.0) % MCV (80.0-98.0) fL MCH (27.0-33.0) pg MCHC (31.0-36.0) g/dl RDW (11.0-16.0) % Plt Count (160-400) X10*3/uL MPV (9.4-12.4) fL Immature Gran % (Auto) (0.0-0.4) % Neut % (Auto) (45-73) % Lymph % (Auto) (20-40) % Gray % (Auto) (2-11) % Eos % (Auto) (0-4) % Baso % (Auto) (0-2) % Lymph # (Auto) (1.2-4.9) X10*3/uL Gray # (Auto) (0.1-1.2) X10*3/uL Eos # (Auto) (0.0-0.4) X10*3/uL Baso # (Auto) (0.0-0.2) X10*3/uL Abs Immat Gran (auto) (0.00-0.03) X10*3/uL Absolute Neuts (auto) (2.0-8.3) x10*3/uL Absolute Nucleated RBC (0.0-0.012) X10*3/uL Nucleated RBC % (auto) (0.0-0.2) /100WBC Sodium (135-145) mmol/L Potassium (3.3-5.1) mmol/L Chloride (96-108) mmol/L Carbon Dioxide (22-29) mmol/L Anion Gap (12-20) BUN (9-16) mg/dL Creatinine (0.5-1.4) mg/dL Estim Creat Clear Calc Estimated GFR Random Glucose (60-115) mg/dL Lactic Acid (0.5-2.0) mmol/L Lactic Acid F/U @ 2Hr 1.5 (0.5-2.0) mmol/L Calcium (8.4-10.2) mg/dL Magnesium (1.6-2.6) mg/dL Total Bilirubin (0.0-1.0) mg/dL Direct Bilirubin (0.0-0.5) mg/dL AST (5-37) U/L ALT (0-40) U/L Alkaline Phosphatase (39-117) U/L Total Creatine Kinase (38-174) U/L Troponin I High Sens (<3.5-35.0) ng/L B-Natriuretic Peptide (<100) pg/mL Total Protein (6.5-8.0) g/dL Albumin (3.5-5.0) g/dL TSH (0.32-4.0) uIU/mL Free T4 (0.71-1.85) ng/dL Urine Color Urine Appearance Urine pH (5.0-9.0) Ur Specific Wy[place] (1.005-1.025) Urine Protein (Neg-Trace) mg/dL Urine Glucose (UA) (Negative) mg/dL Urine Ketones (Negative) mg/dL Urine Blood (Negative) Urine Nitrite (Negative) Ur Leukocyte Esterase (Negative) Urine Opiates Screen (Not Detect) Ur Buprenorphine Scrn (Not Detect) ng/mL Ur Oxycodone Screen (Not Detect) ng/mL Urine Methadone Screen (Not Detect) ng/mL Urine Fentanyl Screen (Not Detect) Ur Barbiturates Screen (Not Detect) Valproic Acid (50.0-100.0) mcg/mL Ur Phencyclidine Scrn (Not Detect) Ur Amphetamines Screen (Not Detect) U Benzodiazepines Scrn (Not Detect) Urine Cocaine Screen (Not Detect) U Marijuana (THC) Screen (Not Detect) Ethyl Alcohol mg/dL Influenza Type A (PCR) (Negative) Influenza Type B (PCR) (Negative) RSV RNA Qual (PCR) (Negative) SARS-CoV-2 RNA (RT-PCR) (Negative) Blood Type Antibody Screen Independent Interpretation I performed an independent interpretation of an: EKG and CT Scan Interpretation: EKG with sinus bradycardia, DE interval 202, QTC prolonged 570, left bundle branch block, Chest x-ray is clear without any focal opacity, no evidence of aspiration CT with significant volume loss on the left from old stroke, no acute bleed or edema Radiology Impression Discussion of test interpretation with radiology: I have reviewed the radiologist's reading. Radiologist Impression: EXAMINATION: XR CHEST CLINICAL INFORMATION: Seizure disorder. Difficulty breathing COMPARISON: 09/16/2023 TECHNIQUE: Frontal view of the chest was obtained. FINDINGS: Heart size borderline with normal caliber pulmonary vessels. Lungs grossly clear. Left-sided pacer stable in position. XR/XR chest 1V IMPRESSION: No active disease. No acute pulmonary findings. Independent Historian Clinical information obtained from an independent historian. History obtained from or confirmed by: Spouse and EMS External Record Review External record reviewed: Office record, Outpatient record, Prior outpatient labs and Prior outpatient radiology Prescription Management I considered prescription management with: Other (Antiepileptic drug) Chronic Conditions Patient?s care impacted by: Other (Seizures) Social Determinants Patient?s care significantly limited by Social Determinants of Health including: Problems related to primary support group and Other Social Determinant of Health Critical Care Time Critical Care Time Critical Care Time: Yes Total Critical Care Time: 41 Attestation: I have personally provided critical care time exclusive of time spent on separately billable procedures. Time includes review of lab data, radiology results, multiple bedside reassessments, and monitoring for potential decompensation. Intervention performed as documented. Discharge Plan Discharge Clinical Impression: Recurrent seizures, Hypomagnesemia, Pancytopenia Patient Disposition: Admitted As Inpatient Print Language: Cook Islander
--- NOTE | 2023-09-25 10:51 | MHC.CM.ED ---
Received notification from Jose THOMSON that patient is active with their agency. Return referral made in [facility] so that [facility] can follow for d/c needs.
[2023-09-25 10:58] LABS: MANUAL DIFF FLAG NO
[2023-09-25 11:00] LABS: Basophils Percent Auto 0.5 % (0-2); Eosinophils Absolute Auto 0.1 X10*3/uL (0.0-0.4); Eosinophils Percent Auto 1.2 % (0-4); Hematocrit 30.9 % (42.0-52.0); Hemoglobin 10.5 g/dl (14.0-18.0); Imm Gran Abs Auto 0.01 X10*3/uL (0.00-0.03); Imm Gran Pct Auto 0.2 % (0.0-0.4); Lymphocytes Absolute Auto 1.7 X10*3/uL (1.2-4.9); Lymphocytes Percent Auto 39.4 % (20-40); Mean Corpuscular Hemoglobin 34.5 pg (27.0-33.0); Mean Corpuscular Volume 101.6 fL (80.0-98.0); Mean Platelet Volume 10.5 fL (9.4-12.4); Monocytes Absolute Auto 0.6 X10*3/uL (0.1-1.2); Monocytes Percent Auto 13.8 % (2-11); Neutrophils Absolute Auto 1.9 x10*3/uL (2.0-8.3); Neutrophils Percent Auto 44.9 % (45-73); Platelet Count 143 X10*3/uL (160-400); Red Blood Count 3.04 X10*6/uL (4.60-5.80); Red Cell Distribution Width 14.2 % (11.0-16.0); White Blood Count 4.3 X10*3/uL (4.8-10.8)
[2023-09-25] MEDS: 0.9 % Sodium Chloride 1,000 ML 999 ML IVCONT (11:04)
[2023-09-25 11:11] LABS: Valproate 70.5 mcg/mL (50.0-100.0)
[2023-09-25] MEDS: Magnesium Sulfate/H2O 2 GM/50 ML PIGGYBACK IV (11:15)
[2023-09-25 11:16] LABS: Ethanol < 10 mg/dL
[2023-09-25 11:19] LABS: Lactic Acid 2.1 mmol/L (0.5-2.0)
[2023-09-25 11:20] LABS: B Type Natriuretic Peptide 444 pg/mL (<100)
[2023-09-25] MEDS: levETIRAcetam in NaCl (iso-os) 1,000 MG/100 ML PIGGYBACK 400 MG IV (11:21)
[2023-09-25 11:25] LABS: Alanine Aminotransferase 45 U/L (0-40); Albumin Level 2.9 g/dL (3.5-5.0); Alkaline Phosphatase 85 U/L (39-117); Anion Gap 12 (12-20); Aspartate Amino Transferase 53 U/L (5-37); Bilirubin Direct 0.4 mg/dL (0.0-0.5); Bilirubin Total 1.2 mg/dL (0.0-1.0); Blood Urea Nitrogen 18 mg/dL (9-16); Calcium 7.7 mg/dL (8.4-10.2); Carbon Dioxide 25 mmol/L (22-29); Chloride 110 mmol/L (96-108); Creatinine Clr Calc Pharmacy 50.3; Estimated Glomerular Filt Rate 45; Glucose Random 104 mg/dL (60-115); Potassium 3.8 mmol/L (3.3-5.1); Sodium 143 mmol/L (135-145); Total Protein 5.5 g/dL (6.5-8.0); Troponin-I High Sensitivity 24.2 ng/L (<3.5-35.0)
[2023-09-25 11:27] LABS: Magnesium 1.4 mg/dL (1.6-2.6)
[2023-09-25 11:39] LABS: TSH reflex Free T4 < 0.01 uIU/mL (0.32-4.0)
[2023-09-25 11:41] LABS: Influenza A PCR NEGATIVE (Negative); Influenza B PCR NEGATIVE (Negative); Resp Syncy Virus RNA Qual PCR NEGATIVE (Negative); SARS COV2 PCR INHOUSE NEGATIVE (Negative)
[2023-09-25 12:58] LABS: Reflex Lactate? Lactic Acid Added
[2023-09-25 14:05] LABS: Appearance Urine Clear; Color Urine Yellow; Glucose Urine UA Negative (Negative); Leukocyte Esterase Urine Negative (Negative); Nitrite Urine Negative (Negative); PH 7.5 (5.0-9.0); Urine Blood Negative (Negative); Urine Ketones Negative (Negative); Urine Protein Negative (Neg-Trace)
[2023-09-25 14:18] LABS: Amphetamine Screen Urine Not Detected (Not Detect); Barbiturates, Urine Not Detected (Not Detect); Benzodiazepines Screen Urine Not Detected (Not Detect); Buprenorphine Scr Not Detected (Not Detect); Cannabinoid Screen Urine Not Detected (Not Detect); Cocaine Screen Urine Not Detected (Not Detect); Fentanyl, urine Not Detected (Not Detect); Methadone Screen, Urine Not Detected (Not Detect); Opiate Screen Urine Not Detected (Not Detect); Oxycodone Screen Urine Not Detected (Not Detect); Phencyclidine Screen Urine Not Detected (Not Detect)
[2023-09-25 14:32] LABS: ~Lactic Acid-LAB USE ONLY 1.5 mmol/L (0.5-2.0)
--- NOTE | 2023-09-25 16:32 | PM.IMHP ---
History of Present Illness Date of Service: 09/25/23 Chief Complaint: Seizure This is a 63-year-old male with pertinent history of seizure disorder, CVA with right-sided hemiparesis, nonischemic cardiomyopathy with combined systolic and diastolic dysfunction EF 25-30% status post AICD, AFib on Eliquis, FRAN on CPAP, hypertension who was brought to the emergency department for evaluation of a witnessed seizure. Patient is postictal and unable to provide history. History obtained from pertinent at bedside. As per the partner, patient had a witnessed tonic-clonic seizure which lasted till EMS arrival. As per the partner it was more than 2 minutes in duration. Bilateral upper and lower extremities were shaking. EMS also reported witnessed tonic clonic seizure upon arrival. Patient was hypotensive as per EMS and blood pressure improved with 300 cc of normal saline. As per the partner, patient is not feeling well for the last few days and has not been sleeping. Unable to obtain review of systems. No cough reported Review of Systems Review of Systems: Yes Unobtainable due to mental status [facility] Medical History PAF (paroxysmal atrial fibrillation) Chronic heart failure DOT (acute kidney injury) Behavior disturbance Seizure as late effect of cerebrovascular accident (CVA) Restrictive lung disease Uncontrolled hypertension Acute decompensated heart failure Cerebrovascular accident CVA (cerebral vascular accident) Atrial fibrillation with rapid ventricular response Persistent atrial fibrillation Chronic systolic heart failure Gallstones CHF (congestive heart failure) Embolism of kidney CKD (chronic kidney disease), stage II Cardiac defibrillator in place NSVT (nonsustained ventricular tachycardia) NICM (nonischemic cardiomyopathy) Renal infarct Hypertension Family History Mother No problems noted. Father No problems noted. 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 Tobacco Use Status: Never used Tobacco e-Cigarette/Vaping Use: Never Used Second Hand Smoke Exposure: No Advance Directives: Yes Advance Directives on File: Yes Advance Directives Date on File: 10/18/20 service: Yes Current occupational status: unemployed Cognitive needs: Yes Hearing needs: No Vision needs: No Meds Allergies Allergy/AdvReac Type Severity Reaction Status Date / Time No Known Allergies Allergy Verified 09/25/23 10:59 [No Known Allergies*] Home Medications ?Medication ?Instructions ?Recorded ?Confirmed ?Last Taken ?Type apixaban 5 mg tablet (Eliquis) 5 mg PO BID 07/02/21 09/25/23 01/27/22 History atorvastatin 80 mg tablet 80 mg PO BEDTIME 07/02/21 09/25/23 01/27/22 History acetaminophen 500 mg capsule 1,000 mg PO Q4H PRN fever or pain 06/20/23 08/19/23 Unknown History aspirin 81 mg tablet,delayed 81 mg PO DAILY 06/20/23 09/25/23 Unknown History release benzonatate 100 mg capsule 100 mg PO TID PRN Cough 06/20/23 08/19/23 Unknown History clonazepam 1 mg tablet 1 mg PO Q20M PRN Seizure Activity 06/20/23 09/25/23 Unknown History methyl salicylate 15 %-menthol 10 1 appl topical 5XD PRN Muscle Pain 06/20/23 08/19/23 Unknown History % topical cream amiodarone 200 mg tablet 400 mg PO DAILY 09/25/23 09/25/23 Unknown History levetiracetam 500 mg tablet 500 mg PO BID 09/25/23 09/25/23 Unknown History levothyroxine 50 mcg tablet 50 mcg PO DAILY 09/25/23 09/25/23 Unknown History Physical Exam Vital Signs and Narrative: Vital Signs: Last Vital Signs Temp 97.6 F 09/25/23 14:18 Pulse 57 09/25/23 14:18 Resp 11 L 09/25/23 14:18 BP 119/67 09/25/23 13:50 Pulse Ox 100 09/25/23 14:18 O2 Del Method Nasal Cannula 09/25/23 13:50 O2 Flow Rate 2.5 09/25/23 14:18 Oxygen Flow Rate 4 09/25/23 10:31 BMI result Body Mass Index 34.8 Middle-aged male lying in bed in no distress Neck supple, no JVD Regular rate and rhythm, S1-S2 heard Regular breath sounds bilaterally, no wheezing or crackles appreciated Abdomen soft nontender, no guarding, no rigidity Patient is drowsy and awakens to verbal stimulus, falls back asleep, unable to have a conversation Psych: Lethargic No pedal edema Results Labs 09/25/23 10:51 09/25/23 10:51 Labs: Laboratory Results - last 24 hr 09/25/23 09/25/23 09/25/23 10:51 10:52 13:52 MCV 101.6 H MCH 34.5 H MCHC 34.0 RDW 14.2 Plt Count 143 L MPV 10.5 Immature Gran % (Auto) 0.2 Neut % (Auto) 44.9 L Lymph % (Auto) 39.4 Parker % (Auto) 13.8 H Eos % (Auto) 1.2 Baso % (Auto) 0.5 Lymph # (Auto) 1.7 Parker # (Auto) 0.6 Eos # (Auto) 0.1 Baso # (Auto) 0.0 Abs Immat Gran (auto) 0.01 Absolute Neuts (auto) 1.9 L Absolute Nucleated RBC 0.000 Nucleated RBC % (auto) 0.0 Anion Gap 12 Estim Creat Clear Calc 50.3 Estimated GFR 45 Random Glucose 104 Lactic Acid 2.1 H* Lactic Acid F/U @ 2Hr Calcium 7.7 L D Magnesium 1.4 L* Total Bilirubin 1.2 H Direct Bilirubin 0.4 AST 53 H ALT 45 H Alkaline Phosphatase 85 Total Creatine Kinase 42 Troponin I High Sens 24.2 B-Natriuretic Peptide 444 H Total Protein 5.5 L Albumin 2.9 L TSH < 0.01 L Free T4 1.70 Urine Color Yellow Urine Appearance Clear Urine pH 7.5 Ur Specific [place] 1.010 Urine Protein Negative Urine Glucose (UA) Negative Urine Ketones Negative Urine Blood Negative Urine Nitrite Negative Ur Leukocyte Esterase Negative Urine Opiates Screen Not Detected Ur Buprenorphine Scrn Not Detected Ur Oxycodone Screen Not Detected Urine Methadone Screen Not Detected Urine Fentanyl Screen Not Detected Ur Barbiturates Screen Not Detected Valproic Acid 70.5 Ur Phencyclidine Scrn Not Detected Ur Amphetamines Screen Not Detected U Benzodiazepines Scrn Not Detected Urine Cocaine Screen Not Detected U Marijuana (THC) Screen Not Detected Ethyl Alcohol < 10 Influenza Type A (PCR) NEGATIVE Influenza Type B (PCR) NEGATIVE RSV RNA Qual (PCR) NEGATIVE SARS-CoV-2 RNA (RT-PCR) NEGATIVE Blood Type B Positive Antibody Screen NEGATIVE 09/25/23 14:16 MCV MCH MCHC RDW Plt Count MPV Immature Gran % (Auto) Neut % (Auto) Lymph % (Auto) Parker % (Auto) Eos % (Auto) Baso % (Auto) Lymph # (Auto) Parker # (Auto) Eos # (Auto) Baso # (Auto) Abs Immat Gran (auto) Absolute Neuts (auto) Absolute Nucleated RBC Nucleated RBC % (auto) Anion Gap Estim Creat Clear Calc Estimated GFR Random Glucose Lactic Acid Lactic Acid F/U @ 2Hr 1.5 Calcium Magnesium Total Bilirubin Direct Bilirubin AST ALT Alkaline Phosphatase Total Creatine Kinase Troponin I High Sens B-Natriuretic Peptide Total Protein Albumin TSH Free T4 Urine Color Urine Appearance Urine pH Ur Specific [place] Urine Protein Urine Glucose (UA) Urine Ketones Urine Blood Urine Nitrite Ur Leukocyte Esterase Urine Opiates Screen Ur Buprenorphine Scrn Ur Oxycodone Screen Urine Methadone Screen Urine Fentanyl Screen Ur Barbiturates Screen Valproic Acid Ur Phencyclidine Scrn Ur Amphetamines Screen U Benzodiazepines Scrn Urine Cocaine Screen U Marijuana (THC) Screen Ethyl Alcohol Influenza Type A (PCR) Influenza Type B (PCR) RSV RNA Qual (PCR) SARS-CoV-2 RNA (RT-PCR) Blood Type Antibody Screen Imaging Radiologist's Impressions: Impressions Chest X-Ray 09/25/23 10:57 IMPRESSION: No active disease. No acute pulmonary findings. Head CT 09/25/23 13:31 IMPRESSION: 1. No evidence of acute intracranial hemorrhage or edematous territorial infarction. 2. Chronic encephalomalacia of the left MCA territory. Assessment and Plan (1) Breakthrough seizure: Status: Acute Plan This is a 63-year-old male with pertinent history of seizure disorder, CVA with right-sided hemiparesis, nonischemic cardiomyopathy with combined systolic and diastolic dysfunction EF 25-30% status post AICD, AFib on Eliquis, FRAN on CPAP, hypertension who was brought to the emergency department for evaluation of a witnessed seizure. #. Breakthrough seizure, tonic-clonic in a patient with seizure disorder: Will admit patient with seizure precautions. Loaded with Keppra in the ER. Patient is on Depakote and Keppra at home. Obtaining EEG and Consulting Neurology. No infectious source. Depakote levels pending #. Hypertension, unclear etiology: No sepsis. Improved with crystalloids as per EMS #. Lactic acidosis due to seizure: No sepsis #. Chronic CKD: Creatinine at baseline #. Hypomagnesemia: Repleted #. Subclinical hyperthyroidism: Outpatient thyroid ultrasound. Continue Synthroid #. FRAN: CPAP at bedtime #. Nonischemic cardiomyopathy with combined systolic and diastolic dysfunction EF 25-30%: Status post AICD. No exacerbation during admission. Continue home Entresto, carvedilol and Bumex #. History of CVA: On aspirin and high-intensity statin #. AFib: Rate controlled in the ER. On Eliquis and amiodarone #. Chronic macrocytic anemia and thrombocytopenia: No indication for transfusion DVT prophylaxis: Eliquis Full code Quality Stroke Does the patient have a stroke diagnosis?: No VTE Prior VTE?: No VTE Risk Level:: Medical - moderate - high VTE Device Contraindication: Treatment Not Indicated VTE Drug Contraindication: N/A - Med Ordered
--- NOTE | 2023-09-25 18:53 | MHC.EDTECH ---
Patient given dinner tray
--- NOTE | 2023-09-25 19:07 | PC.NURSE ---
Patient awake and alert w/ baseline mentation. skin pwd, resp even and non labored. sitting at bedside eating dinner w/ family present. seizure precautions in place.
--- NOTE | 2023-09-25 19:08 | PHA.MEDREC ---
Pharmacy Consult ? Medication Reconciliation Pharmacy has completed the medication reconciliation.Med rec complete, [facility] and spoke with pt family member
[2023-09-25] MEDS: Atorvastatin Calcium 80 MG TABLET PO (21:52)
[2023-09-25] MEDS: levETIRAcetam 500 MG TABLET PO (21:52)
[2023-09-25] MEDS: Divalproex Sodium ER 500 MG TAB.ER.24H PO (21:52)
[2023-09-25] MEDS: Apixaban 5 MG TABLET PO (21:53)
[2023-09-25] MEDS: Sacubitril/Valsartan 49/51 1 TAB TABLET PO (21:54)
--- NOTE | 2023-09-25 23:33 | PC.NURSE ---
assumed care of pt at this time, pt resting comfortably. seizure precautions in place. resp even and unlabored. pt arousable to name. call reid within reach.
[2023-09-26] VITALS (8 sets, daily range): BP systolic 109–151; BP diastolic 68–73; PULSE 50–63; RESP 12–18; TEMP 36.2–36.7; O2SAT 93–100
[2023-09-26] MEDS: 0.9 % Sodium Chloride Flush 3 ML SYRINGE IVFLUSH ×6 (00:52→20:59)
[2023-09-26] MEDS: Levothyroxine Sodium 50 MCG TABLET PO (05:21)
[2023-09-26 06:11] LABS: MANUAL DIFF FLAG NO
[2023-09-26 06:26] LABS: Basophils Percent Auto 0.6 % (0-2); Eosinophils Absolute Auto 0.1 X10*3/uL (0.0-0.4); Eosinophils Percent Auto 0.9 % (0-4); Hematocrit 29.8 % (42.0-52.0); Hemoglobin 10.2 g/dl (14.0-18.0); Imm Gran Abs Auto 0.01 X10*3/uL (0.00-0.03); Imm Gran Pct Auto 0.2 % (0.0-0.4); Lymphocytes Absolute Auto 2.1 X10*3/uL (1.2-4.9); Lymphocytes Percent Auto 38.2 % (20-40); Mean Corpuscular HGB Conc 34.2 g/dl (31.0-36.0); Mean Corpuscular Hemoglobin 35.1 pg (27.0-33.0); Mean Corpuscular Volume 102.4 fL (80.0-98.0); Monocytes Absolute Auto 0.9 X10*3/uL (0.1-1.2); Neutrophils Absolute Auto 2.3 x10*3/uL (2.0-8.3); Neutrophils Percent Auto 43.1 % (45-73); Platelet Count 123 X10*3/uL (160-400); Red Blood Count 2.91 X10*6/uL (4.60-5.80); White Blood Count 5.4 X10*3/uL (4.8-10.8)
[2023-09-26 06:39] LABS: Anion Gap 12 (12-20); Blood Urea Nitrogen 16 mg/dL (9-16); Calcium 8.5 mg/dL (8.4-10.2); Carbon Dioxide 29 mmol/L (22-29); Chloride 109 mmol/L (96-108); Creatinine Clr Calc Pharmacy 62.4; Estimated Glomerular Filt Rate 58; Glucose Random 83 mg/dL (60-115); Magnesium 1.8 mg/dL (1.6-2.6); Potassium 3.5 mmol/L (3.3-5.1); Sodium 146 mmol/L (135-145)
[2023-09-26] MEDS: levETIRAcetam 500 MG TABLET PO ×2 (08:54→20:58)
[2023-09-26] MEDS: Bumetanide 1 MG TABLET PO (08:54)
[2023-09-26] MEDS: Divalproex Sodium ER 500 MG TAB.ER.24H PO ×2 (08:54→20:58)
[2023-09-26] MEDS: carvediloL 12.5 MG TABLET PO (08:54)
[2023-09-26] MEDS: Aspirin Enteric Coated 81 MG TABLET.DR PO (08:54)
[2023-09-26] MEDS: Apixaban 5 MG TABLET PO ×2 (08:55→20:58)
[2023-09-26] MEDS: Amiodarone HCL 200 MG TABLET 400 MG PO (08:55)
[2023-09-26] MEDS: Sacubitril/Valsartan 49/51 1 TAB TABLET PO ×2 (08:55→20:58)
--- NOTE | 2023-09-26 11:59 | P.CDIM_ITS ---
PROVIDER RESPONSE TEXT: To clarify, the appropriate diagnosis supported by the clinical indicators: Acute QUERY TEXT: PHYSICIAN'S DOCUMENTATION REQUEST Date of Query: 09/26/2023 11:35 AM EDT Patient Name: Donny Costa Admit Date: 09/26/2023 Dear Karoline Mcmahon MD, A review of the medical record indicates additional documentation may be needed. Please review below and update the documentation accordingly. Clinical Indicators: H&P: Plan - Lactic acidosis due to seizures, No sepsis. LA 2.1 Clarify which of the following accurately represents the acuity of the Lactic acidosis: Acute Acute on chronic Other (explain) Clinically unable to determine (explain) Thank you, Corrine Mcdaniel, CCS, CDIS Use of terms such as suspected, likely, concern for, or probable (associated with a specific diagnosi s that is being evaluated, monitored, or treated as if it exists) are acceptable and can be coded in the inpatient se tting, when documented at the time of discharge. Please use your independent medical judgment in providing your response. THIS QUERY IS PART OF THE PERMANENT MEDICAL RECORD
--- NOTE | 2023-09-26 12:40 | HO.PM.IMPN ---
Subjective Subjective Date of Service: 09/26/23 Interval History: No further episodes of seizures since admission Review of Systems All other systems are negative Physical Exam Vital Signs: Vital Signs: Last Vital Signs Temp 98.0 F 09/26/23 07:46 Pulse 63 09/26/23 08:54 Resp 18 09/26/23 07:46 BP 151/72 H 09/26/23 08:55 Pulse Ox 97 09/26/23 07:46 O2 Del Method Room Air 09/26/23 07:46 O2 Flow Rate 3 09/25/23 16:34 Oxygen Flow Rate 4 09/25/23 10:31 BMI result Body Mass Index 34.8 Middle-aged male lying in bed in no distress Neck supple, no JVD Regular rate and rhythm, S1-S2 heard Regular breath sounds bilaterally, no wheezing or crackles appreciated Abdomen soft nontender, no guarding, no rigidity Patient is awake and oriented to self and place , no focal motor weakness Psych: Normal mood No pedal edema Objective Data Active Medications Acetaminophen (Acetaminophen 325 Mg Tablet) 650 mg PO Q6H PRN PRN Reason: Pain, Mild (Pain Scale 1-3) Amiodarone HCl (Amiodarone Hcl 200 Mg Tablet) 400 mg PO DAILY [facility] Last Admin: 09/26/23 08:55 Dose: 400 mg Documented By: REMI Apixaban (Apixaban 5 Mg Tablet) 5 mg PO BID [facility] Last Admin: 09/26/23 08:55 Dose: 5 mg Documented By: REMI Aspirin (Aspirin Enteric Coated 81 Mg Tablet.) 81 mg PO Q2D@0900 [facility] Last Admin: 09/26/23 08:54 Dose: 81 mg Documented By: REMI Atorvastatin Calcium (Atorvastatin Calcium 80 Mg Tablet) 80 mg PO BEDTIME [facility] Last Admin: 09/25/23 21:52 Dose: 80 mg Documented By: DEAN Bumetanide (Bumetanide 1 Mg Tablet) 1 mg PO DAILY [facility]; Protocol Last Admin: 09/26/23 08:54 Dose: 1 mg Documented By: REMI Carvedilol (Carvedilol 12.5 Mg Tablet) 12.5 mg PO BID [facility]; Protocol Last Admin: 09/26/23 08:54 Dose: 12.5 mg Documented By: REMI Clonazepam (Clonazepam 1 Mg Tablet) 1 mg PO Q20M PRN PRN Reason: Seizure Activity Divalproex Sodium (Divalproex Sodium Er 500 Mg Tab.Er.24h) 500 mg PO BID [facility] Last Admin: 09/26/23 08:54 Dose: 500 mg Documented By: REMI Levetiracetam (Levetiracetam 500 Mg Tablet) 500 mg PO BID [facility] Last Admin: 09/26/23 08:54 Dose: 500 mg Documented By: REMI Levothyroxine Sodium (Levothyroxine Sodium 50 Mcg Tablet) 50 mcg PO DAILY@0600 [facility] Last Admin: 09/26/23 05:21 Dose: 50 mcg Documented By: ANTOIC Melatonin (Melatonin 3 Mg Tablet) 6 mg PO BEDTIME PRN PRN Reason: Insomnia Ondansetron HCl (Ondansetron Hcl 4 Mg/2 Ml Vial) 4 mg IVPUSH Q8H PRN PRN Reason: Nausea and Vomiting Sacubitril/Valsartan (Sacubitril/Valsartan 49/51 1 Tab Tablet) 1 tab PO BID [facility]; Protocol Last Admin: 09/26/23 08:55 Dose: 1 tab Documented By: REMI Sodium Chloride (0.9 % Sodium Chloride Flush 3 Ml Syringe) 3 ml IVFLUSH QSHIFT [facility] Last Admin: 09/26/23 09:00 Dose: 3 ml Documented By: REMI Labs 09/26/23 05:04 09/26/23 05:04 Labs: Laboratory Results - last 24 hr 09/25/23 09/25/23 09/26/23 13:52 14:16 05:04 MCV 102.4 H MCH 35.1 H MCHC 34.2 RDW 14.0 Plt Count 123 L MPV 11.0 Immature Gran % (Auto) 0.2 Neut % (Auto) 43.1 L Lymph % (Auto) 38.2 Pine % (Auto) 17.0 H Eos % (Auto) 0.9 Baso % (Auto) 0.6 Lymph # (Auto) 2.1 Pine # (Auto) 0.9 Eos # (Auto) 0.1 Baso # (Auto) 0.0 Abs Immat Gran (auto) 0.01 Absolute Neuts (auto) 2.3 Absolute Nucleated RBC 0.000 Nucleated RBC % (auto) 0.0 Anion Gap 12 Estim Creat Clear Calc 62.4 Estimated GFR 58 Random Glucose 83 Lactic Acid F/U @ 2Hr 1.5 Calcium 8.5 D Magnesium 1.8 Urine Color Yellow Urine Appearance Clear Urine pH 7.5 Ur Specific Gary 1.010 Urine Protein Negative Urine Glucose (UA) Negative Urine Ketones Negative Urine Blood Negative Urine Nitrite Negative Ur Leukocyte Esterase Negative Urine Opiates Screen Not Detected Ur Buprenorphine Scrn Not Detected Ur Oxycodone Screen Not Detected Urine Methadone Screen Not Detected Urine Fentanyl Screen Not Detected Ur Barbiturates Screen Not Detected Ur Phencyclidine Scrn Not Detected Ur Amphetamines Screen Not Detected U Benzodiazepines Scrn Not Detected Urine Cocaine Screen Not Detected U Marijuana (THC) Screen Not Detected Assessment and Plan (1) Breakthrough seizure: Status: Acute Plan This is a 63-year-old male with pertinent history of seizure disorder, CVA with right-sided hemiparesis, nonischemic cardiomyopathy with combined systolic and diastolic dysfunction EF 25-30% status post AICD, AFib on Eliquis, FRAN on CPAP, hypertension who was brought to the emergency department for evaluation of a witnessed seizure. #. Breakthrough seizure, tonic-clonic in a patient with seizure disorder: Continue seizure precautions. Valproic level ok. Continue Depakote and Keppra. Awaiting EEG and Neurology. No infectious source. #. Hypertension, due to IVVD: No sepsis. Improved with crystalloids #. Acute lactic acidosis due to seizure: Resolved. No sepsis #. Chronic CKD: Creatinine at baseline #. Hypomagnesemia: Repleted #. Subclinical hyperthyroidism: Outpatient thyroid ultrasound. Continue Synthroid #. FRAN: CPAP at bedtime #. Nonischemic cardiomyopathy with combined systolic and diastolic dysfunction EF 25-30%: Status post AICD. No exacerbation during admission. Continue home Entresto, carvedilol and Bumex #. History of CVA: On aspirin and high-intensity statin #. AFib: Rate controlled in the ER. On Eliquis and amiodarone #. Chronic macrocytic anemia and thrombocytopenia: No indication for transfusion DVT prophylaxis: Eliquis Full code Reason for continued hospitalization: Pending seizure workup including EEG and Neurology eval. PT eval pending Quality Stroke Does the patient have a stroke diagnosis?: No VTE Prior VTE?: No VTE Risk Level:: Medical - moderate - high VTE Device Contraindication: Treatment Not Indicated VTE Drug Contraindication: N/A - Med Ordered
--- NOTE | 2023-09-26 14:28 | MHC.CM.PN ---
DEBURRER MACHINE COMPLETED W/ [employer]OWEL [employer]ORTER ASSISTANCE. IMM DELIVERED. PATIENT FROM HOME W/ . AMBULATES W/ WALKER. 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 ACTIVE W/ [facility]. PCP CICI LORENZO MD HCP ON FILE AND VERIFIED DP: PT REC HOME RESUME SERVICES. PATIENT AGREEABLE TO PLAN. TO TRANSPORT. CM WILL CONTINUE TO FOLLOW.
[2023-09-26] MEDS: Atorvastatin Calcium 80 MG TABLET PO (20:58)
--- NOTE | 2023-09-27 02:59 | PC.NURSE ---
Patient states does not use CPAP at home. Fruit Stuffer utilized.
[2023-09-27] MEDS: Levothyroxine Sodium 50 MCG TABLET PO (05:50)
[2023-09-27 07:33] VITALS: BP 142/79; PULSE 59; RESP 16; TEMP 36.2; O2SAT 97
[2023-09-27 08:59] VITALS: BP 142/79; PULSE 59
[2023-09-27] MEDS: levETIRAcetam 500 MG TABLET PO (08:59)
[2023-09-27] MEDS: Bumetanide 1 MG TABLET PO (08:59)
[2023-09-27] MEDS: Divalproex Sodium ER 500 MG TAB.ER.24H PO (08:59)
[2023-09-27] MEDS: Amiodarone HCL 200 MG TABLET 400 MG PO (08:59)
[2023-09-27] MEDS: carvediloL 12.5 MG TABLET PO (08:59)
[2023-09-27] MEDS: Sacubitril/Valsartan 49/51 1 TAB TABLET PO (08:59)
[2023-09-27] MEDS: Apixaban 5 MG TABLET PO (09:00)
[2023-09-27] MEDS: 0.9 % Sodium Chloride Flush 3 ML SYRINGE IVFLUSH ×2 (09:00→16:17)
--- NOTE | 2023-09-27 12:02 | PM.DS ---
DS: Providers Provider Date of Service: 09/27/23 Date of admission: 09/26/23 09:51 Primary care physician: Gemini Fuentes MD Consults: 09/25/23 16:30 Consult to Neurology Routine Consulting Provider: [facility] Reason for consultation: seizure DS: Diagnosis Discharge Diagnosis (1) Breakthrough seizure: Status: Acute DS: Summary Hospital Course Hospital Course: History of presenting illness Date of Service: 09/25/23 Chief Complaint: Seizure This is a 63-year-old male with pertinent history of seizure disorder, CVA with right-sided hemiparesis, nonischemic cardiomyopathy with combined systolic and diastolic dysfunction EF 25-30% status post AICD, AFib on Eliquis, FRAN on CPAP, hypertension who was brought to the emergency department for evaluation of a witnessed seizure. Patient is postictal and unable to provide history. History obtained from pertinent at bedside. As per the partner, patient had a witnessed tonic-clonic seizure which lasted till EMS arrival. As per the partner it was more than 2 minutes in duration. Bilateral upper and lower extremities were shaking. EMS also reported witnessed tonic clonic seizure upon arrival. Patient was hypotensive as per EMS and blood pressure improved with 300 cc of normal saline. As per the partner, patient is not feeling well for the last few days and has not been sleeping. Unable to obtain review of systems. Hospital course: 63-year-old male with pertinent history of seizure disorder, CVA with right-sided hemiparesis, nonischemic cardiomyopathy with combined systolic and diastolic dysfunction EF 25-30% status post AICD, AFib on Eliquis, FRAN on CPAP, hypertension who was brought to the emergency department for evaluation of a witnessed seizure, patient admitted to medical floor noted to have no recurrent episodes of seizure his valproic level was within normal range, EEG showed no seizure-like activity case discussed with Neurology they recommend to continue Depakote and increase dose of Keppra to 1000 mg b.i.d., patient noted to have acute lactic acidosis likely due to seizure, likely breakthrough seizure due to lack of sleep, no source of infection was noted patient was continued on all other home medications he was noted to have stable blood pressure and renal function. Seen by Physical therapy they recommend no acute PT they recommend to continue prior home services. Patient noted to have acute hypo magnesemia that was repleted and normalized In regard to history of hypothyroidism patient noted to have low TSH and high normal T4 dose of Synthroid reduced to 25 mcg recommend repeat TSH in 6 week In regard to obstructive sleep apnea recommend to continue CPAP at bedtime Nonischemic cardiomyopathy with combined systolic and diastolic dysfunction EF 25-30%: Status post AICD. No exacerbation noted during admission,continue home Entresto, carvedilol and Bumex History of CVA: Continue aspirin and high-intensity statin CT head showed no acute abnormality. AFib: Rate controlled continue Eliquis and amiodarone Time Attestation Discharge Coordination Time (in mins): 34 Quality: Safe Use of Opioids Does Pt have an Active Cancer Diagnosis on the Problem List?: No Quality: Stroke Does the patient have a stroke diagnosis?: No Physical Exam Vital Signs: Vital Signs: Last Vital Signs Temp 97.2 F 09/27/23 07:33 Pulse 59 09/27/23 08:59 Resp 16 09/27/23 07:33 BP 142/79 H 09/27/23 08:59 Pulse Ox 97 09/27/23 07:33 O2 Del Method Room Air 09/27/23 07:33 O2 Flow Rate 3 09/25/23 16:34 Oxygen Flow Rate 4 09/25/23 10:31 BMI result Body Mass Index 34.8 Const: Other: General awake alert x3 no acute distress Neck supple, no JVD Regular rate and rhythm, S1-S2 heard Regular breath sounds bilaterally, no wheezing or crackles appreciated Abdomen soft non tender, no guarding, no rigidity Psych: Normal mood No pedal edema Neuro loss of right nasolabial fold/right hemiparesis DS: Data Data Completed and Pending Labs on day of discharge: Preliminary micro results at discharge 09/25/23 11:07 Blood Culture - Preliminary Blood - Venous No growth after 24 hours. 09/25/23 10:51 Blood Culture - Preliminary Blood - Venous No growth after 24 hours. Discharge Plan Discharge Anticipated Discharge Date/Time: 09/27/23 11:52 Patient Disposition: Home Health Service Discharge Diagnosis: Breakthrough seizure Referrals: Jose THOMSON [Outside] Gemini Kent MD [Primary Care Provider] - 1 Week Discharge Medications: New levothyroxine [Synthroid] 25 mcg tablet 25 mcg PO DAILY Qty: 90 0RF Continued pyridoxine (vitamin B6) [Vitamin B-6] 100 mg tablet 100 mg PO BID Qty: 60 6RF divalproex [Depakote ER] 500 mg tablet extended release 24 hr 500 mg PO BID Qty: 60 6RF atorvastatin 80 mg tablet 80 mg PO BEDTIME Eliquis 5 mg tablet 5 mg PO BID bumetanide 1 mg tablet 1 mg PO DAILY Qty: 30 0RF methyl salicylate-menthol 15-10 % Cream 1 appl TOPICAL 5XD PRN (Reason: Muscle Pain) aspirin 81 mg Tablet,Delayed Release (Dr/Ec) 81 mg PO Q2D clonazepam 1 mg tablet 1 mg PO Q20M PRN (Reason: Seizure Activity) Rx Instructions: [facility]: administer before bedtime acetaminophen 500 mg capsule 1,000 mg PO Q4H PRN (Reason: fever or pain) amiodarone 200 mg tablet 400 mg PO DAILY sennosides-docusate sodium [Senna with Docusate Sodium] 8.6-50 mg Tablet 1 tab PO BID PRN (Reason: Constipation) mirtazapine 30 mg Tablet 15 mg PO BEDTIME carvedilol 12.5 mg tablet 12.5 mg PO BID Qty: 60 5RF Rx Instructions: must administer with a meal/food Entresto 49-51 mg tablet 1 tab PO BID Qty: 60 5RF Rx Instructions: dose reduced Changed levetiracetam 500 mg tablet 1,000 mg PO BID Qty: 120 0RF Rx Instructions: Take every morning 30 minutes before breakfast with a full glass of water Discontinued levothyroxine 50 mcg tablet 50 mcg PO DAILY Discharge Orders: Discharge Order (Routine); Ordered 09/27/23 Ordered By: Nathan Koroma Diet: Low fat, low cholesterol Activity on Discharge: As tolerated Stand Alone Forms: Patient Portal Discharge page Print Language: Irish Care Plan Goals: Breakthrough seizure/EEG showed no seizure-like activity Increase dose of Keppra to 1000 mg twice daily (take 2 tablets of 500 mg twice daily) Decrease dose of Synthroid to 25 mcg daily Check TSH in 6 weeks Health Concerns: CVA with right hemiparesis Nonischemic cardiomyopathy with systolic and diastolic dysfunction AFib on Eliquis Continue all home medications as above Plan of Treatment: Follow-up with primary care physician and repeat TSH in 6 week Follow-up with neurology call for appointment 1-2 weeks to discuss breakthrough seizures Assessment: As above
--- NOTE | 2023-09-27 12:26 | MHC.CM.PN ---
PT WILL DC HOME TODAY WITH RESUMPTION OF [facility] FAMILY TO TRANSPORT
[2023-09-27 15:08] VITALS: BP 143/71; PULSE 65; RESP 18; TEMP 36.3; O2SAT 96
== END 2023-09-27 18:43 | disposition home health service (06) | DRG 101 ==
LOC: HO.ED 13:42 → HO.EDOVER 16:40 → HO.S3 09-26 00:04
PROVIDERS: Physician Assistant; Admitting Provider Student in an Organized Health Care Education/Training Program; Emergency Provider Emergency Medicine; PCP Internal Medicine; Visit Provider Hospitalist
DX: G40.909 Epilepsy, unspecified, not intractable, without status epilepticus (principal); I69.351 Hemiplegia and hemiparesis following cerebral infarction affecting right dominant side; I13.0 Hypertensive heart and chronic kidney disease with heart failure and stage 1 through stage 4 chronic kidney disease, or unspecified chronic kidney disease; I42.8 Other cardiomyopathies; E87.21 Acute metabolic acidosis; Z20.822 Contact with and (suspected) exposure to COVID-19; E03.8 Other specified hypothyroidism; D69.6 Thrombocytopenia, unspecified; G47.33 Obstructive sleep apnea (adult) (pediatric); D53.9 Nutritional anemia, unspecified; E83.42 Hypomagnesemia; Z95.810 Presence of automatic (implantable) cardiac defibrillator; Z79.01 Long term (current) use of anticoagulants; Z79.82 Long term (current) use of aspirin; Z79.890 Hormone replacement therapy; Z79.899 Other long term (current) drug therapy
CPT/HCPCS: 0241U; 36415; 70450; 71045; 80048; 80076; 80164; 80307; 81003; 82550; 83605; 83735; 83880; 84439; 84443; 84484; 85025; 86850; 86900; 86901; 87040; 93005; 95816; 97162; 99285; J1953; J3475

== ENCOUNTER → 2023-09-25 10:36 | Outpatient (BNV) | payer OTHER, MEDICARE, SELFPAY | PROVIDERS: Admitting Provider Student in an Organized Health Care Education/Training Program; Emergency Provider Emergency Medicine; PCP Internal Medicine; Visit Provider Internal Medicine | DX: R00.1 Bradycardia, unspecified (principal); I44.7 Left bundle-branch block, unspecified; I45.81 Long QT syndrome | CPT/HCPCS: 93010 ==

== ENCOUNTER → 2023-09-25 16:38 | Outpatient (BNV) | payer OTHER, MEDICARE, SELFPAY | PROVIDERS: Admitting Provider Student in an Organized Health Care Education/Training Program; Emergency Provider Emergency Medicine; PCP Internal Medicine; Visit Provider Student in an Organized Health Care Education/Training Program | DX: G40.919 Epilepsy, unspecified, intractable, without status epilepticus (principal) | CPT/HCPCS: 99223; 99232; 99239 ==

== ENCOUNTER 2023-09-27 20:06 | Inpatient (IN) | payer OTHER, SELFPAY ==
--- NOTE | ~2023-09-27 | XR_ITS ---
EXAMINATION: XR CHEST CLINICAL INFORMATION: Altered mental status. COMPARISON: 09/25/2023 TECHNIQUE: Frontal view of the chest was obtained. FINDINGS: Left pectoral AICD lead terminates in the region of the right ventricular apex. Patient is slightly rotated to the left. Cardiac silhouette is within normal limits in size for technique. No consolidation, pneumothorax, or pleural effusion. Lung volumes are normal. Degenerative spondylosis is present in the thoracic spine. No acute osseous findings. XR/XR chest 1V IMPRESSION: No acute pulmonary findings.
--- NOTE | ~2023-09-27 | CT_ITS ---
EXAMINATION: CT head/brain wo IV con CLINICAL INFORMATION: Change in mental status, seizure disorder COMPARISON: CT head 09/25/2023 TECHNIQUE: Contiguous axial imaging was performed from the skull base to vertex without intravenous contrast. This CT examination was performed using dose optimization techniques as appropriate, variously including the following: * Automated exposure control * Adjustment of mA and/or kV according to patient size (this includes techniques or standardized protocols for targeted exams where dose is matched to indication/reason for exam; i.e. extremities or head) * Use of iterative reconstruction technique DLP: 841 mGy-cm. FINDINGS: Chronic encephalomalacia/gliosis in the left MCA territory with associated volume loss resulting in stable 0.6 cm leftward midline shift. No new loss of bhakta-white matter differentiation. No acute intracranial hemorrhage. No extra-axial fluid collections are identified. No hydrocephalus. The cerebellar tonsils are well positioned. No acute osseous or soft tissue abnormality. Visualized portions of the orbits are unremarkable. The mastoid air cells and visualized portions of the paranasal sinuses are well aerated. CT/CT head/brain wo IV con IMPRESSION: 1. No acute intracranial pathology. 2. Chronic encephalomalacia/gliosis in the left MCA territory with associated volume loss resulting in stable 0.6 cm leftward midline shift.
[2023-09-27 20:11] VITALS: BP 108/68; PULSE 110; O2SAT 92
[2023-09-27 20:17] VITALS: BP 111/68; PULSE 64; RESP 18; TEMP 36.4; O2SAT 100; BMI 34.0
--- NOTE | 2023-09-27 20:20 | ECG_ITS ---
Test Reason : AMS Blood Pressure : / mmHG Vent. Rate : 062 BPM Atrial Rate : 062 BPM P-R Int : 182 ms QRS Dur : 146 ms QT Int : 478 ms P-R-T Axes : 085 -38 131 degrees QTc Int : 485 ms Normal sinus rhythm Left axis deviation Left bundle branch block Abnormal ECG When compared with ECG of 25-SEP-2023 11:02, QT has shortened Referred By: Generic ED Physician Electronically Signed By:KEITH ARANDA
[2023-09-27 20:34] LABS: MANUAL DIFF FLAG NO
[2023-09-27 20:36] LABS: Basophils Percent Auto 0.6 % (0-2); Eosinophils Absolute Auto 0.1 X10*3/uL (0.0-0.4); Eosinophils Percent Auto 1.2 % (0-4); Hematocrit 32.8 % (42.0-52.0); Hemoglobin 11.1 g/dl (14.0-18.0); Imm Gran Abs Auto 0.05 X10*3/uL (0.00-0.03); Imm Gran Pct Auto 0.7 % (0.0-0.4); Lymphocytes Absolute Auto 2.2 X10*3/uL (1.2-4.9); Lymphocytes Percent Auto 29.8 % (20-40); Mean Corpuscular HGB Conc 33.8 g/dl (31.0-36.0); Mean Corpuscular Hemoglobin 34.7 pg (27.0-33.0); Mean Corpuscular Volume 102.5 fL (80.0-98.0); Mean Platelet Volume 10.7 fL (9.4-12.4); Monocytes Absolute Auto 1.1 X10*3/uL (0.1-1.2); Monocytes Percent Auto 15.7 % (2-11); Neutrophils Absolute Auto 3.8 x10*3/uL (2.0-8.3); Platelet Count 168 X10*3/uL (160-400); Red Cell Distribution Width 14.4 % (11.0-16.0); White Blood Count 7.2 X10*3/uL (4.8-10.8)
[2023-09-27 20:49] LABS: Ammonia 36 umol/L (13-55)
[2023-09-27 20:55] LABS: Alanine Aminotransferase 33 U/L (0-40); Albumin Level 3.1 g/dL (3.5-5.0); Alkaline Phosphatase 85 U/L (39-117); Anion Gap 15 (12-20); Aspartate Amino Transferase 35 U/L (5-37); Bilirubin Total 0.9 mg/dL (0.0-1.0); Blood Urea Nitrogen 18 mg/dL (9-16); Calcium 8.5 mg/dL (8.4-10.2); Carbon Dioxide 27 mmol/L (22-29); Chloride 107 mmol/L (96-108); Creatinine Clr Calc Pharmacy 58.4; Estimated Glomerular Filt Rate 47; Glucose Random 114 mg/dL (60-115); Magnesium 1.6 mg/dL (1.6-2.6); Potassium 3.8 mmol/L (3.3-5.1); Sodium 145 mmol/L (135-145); Total Protein 5.9 g/dL (6.5-8.0)
[2023-09-27 20:58] LABS: Lactic Acid 2.9 mmol/L (0.5-2.0)
[2023-09-27 21:05] LABS: Troponin-I High Sensitivity 23.2 ng/L (<3.5-35.0)
--- NOTE | 2023-09-27 21:57 | ED.AMS ---
HPI - Altered Mental Status General Chief Complaint: Altered Mental Status Stated Complaint: lethargic, on ambulatory, discharge from hosp toda Time Seen by Provider: 09/27/23 21:42 History of Present Illness ED Provider: Dr. Thierry Guillory HPI narrative: 63-year-old male with pertinent history of seizure disorder, CVA with right-sided hemiparesis, nonischemic cardiomyopathy with combined systolic and diastolic dysfunction EF 25-30% status post AICD, AFib on Eliquis, FRAN on CPAP, hypertension who was brought to the emergency department by ambulance for evaluation of a lethargy. The patient was hospitalized from 09/25/2023 until 09/26/2023 for breakthrough seizures. The patient was discharged today and since being home he is become more lethargic. At the time my evaluation the patient is lethargic but is able to answer questions. He states that he is feeling weak but he has no other complaints. He was oriented to person and place. He does not think that he had a seizure today but he has not certain. He has no complaints. Paramedics reported that his O2 saturation was 80% on room air, he was transported on a non-rebreather, he is currently on room air and his O2 saturation is 96%. Related Data Home Medications ?Medication ?Instructions ?Recorded ?Confirmed apixaban 5 mg tablet (Eliquis) 5 mg PO BID 07/02/21 09/25/23 atorvastatin 80 mg tablet 80 mg PO BEDTIME 07/02/21 09/25/23 acetaminophen 500 mg capsule 1,000 mg PO Q4H PRN fever or pain 06/20/23 09/25/23 aspirin 81 mg tablet,delayed 81 mg PO Q2D 06/20/23 09/25/23 release clonazepam 1 mg tablet 1 mg PO Q20M PRN Seizure Activity 06/20/23 09/25/23 methyl salicylate 15 %-menthol 10 1 appl topical 5XD PRN Muscle Pain 06/20/23 09/25/23 % topical cream amiodarone 200 mg tablet 400 mg PO DAILY 09/25/23 09/25/23 mirtazapine 30 mg tablet 15 mg PO BEDTIME 09/25/23 09/25/23 sennosides 8.6 mg-docusate sodium 1 tab PO BID PRN Constipation 09/25/23 09/25/23 50 mg tablet (Senna with Docusate Sodium) Previous Rx's ?Medication ?Instructions ?Recorded bumetanide 1 mg tablet 1 mg PO DAILY #30 tabs 01/30/22 divalproex 500 mg tablet,extended 500 mg PO BID #60 tabs 06/03/23 release 24 hr (Depakote ER) pyridoxine (vitamin B6) 100 mg 100 mg PO BID #60 tabs 06/03/23 tablet (Vitamin B-6) carvedilol 12.5 mg tablet 12.5 mg PO BID #60 tabs 08/19/23 sacubitril 49 mg-valsartan 51 mg 1 tab PO BID #60 tabs 08/19/23 tablet (Entresto) levetiracetam 500 mg tablet 1,000 mg (2 x 500 mg) PO BID #120 09/27/23 tabs levothyroxine 25 mcg tablet 25 mcg PO DAILY #90 tabs 09/27/23 (Synthroid) Allergies Allergy/AdvReac Type Severity Reaction Status Date / Time No Known Allergies Allergy Verified 09/27/23 20:19 [No Known Allergies*] Review of Systems Review of Systems: Yes all other systems are reviewed and are negative [facility] Past Medical History [facility] Narrative: Social history: He lives at home with his . He denies tobacco, alcohol and drug use. Medical History PAF (paroxysmal atrial fibrillation) Chronic heart failure DOT (acute kidney injury) Behavior disturbance Seizure as late effect of cerebrovascular accident (CVA) Restrictive lung disease Uncontrolled hypertension Acute decompensated heart failure Cerebrovascular accident CVA (cerebral vascular accident) Atrial fibrillation with rapid ventricular response Persistent atrial fibrillation Chronic systolic heart failure Gallstones CHF (congestive heart failure) Embolism of kidney CKD (chronic kidney disease), stage II Cardiac defibrillator in place NSVT (nonsustained ventricular tachycardia) NICM (nonischemic cardiomyopathy) Renal infarct Hypertension Surgical History History of cardiac defibrillator placement Family History Family History Mother No problems noted. Father No problems noted. 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 Tobacco Use Status: Tobacco use Unknown Smoked in Last 30 Days: No e-Cigarette/Vaping Use: Never Used Second Hand Smoke Exposure: No Use of substances other than those prescribed or required for medical reasons: No Advance Directives: Yes Advance Directives on File: Yes Advance Directives Date on File: 10/18/20 Do you have a plan to hurt others: No Plan service: No Current occupational status: unemployed Cognitive needs: Yes Hearing needs: No Vision needs: No Physical Exam ED Vital Signs: Vital Signs - 24 hr 09/27/23 20:17 09/27/23 22:06 Temperature 97.6 F 97.8 F Pulse Rate 64 64 Respiratory Rate 18 14 Blood Pressure 111/68 101/60 Pulse Oximetry 100 97 Oxygen Delivery Method Nasal Cannula Room Air BMI result Body Mass Index 34.0 Vital signs were normal, he was afebrile, his O2 saturation was 100% on 2 L nasal cannula-he is now on room air in his O2 saturation is 96% Exam: General: Lethargic but awake, he is able to answer questions, he is oriented to person and he knows he has in the hospital Head: Normocephalic, atraumatic EENT: PERRL, Lids normal, sclera normal, conjunctiva normal, nose normal , ears normal, throat without erythema or exudates Neck: Supple, no adenopathy Lung: breath sounds symmetric, no wheezing, rales or rhonchi Chest: symmetric movement, nontender Heart: regular rate and rhythm, normal S1, S2 no murmurs or rubs Abdomen: soft, non-tender, nondistended, normal bowel sounds Back: no vertebral tenderness, no CVAT Extremities: no deformities, moves all extremities symmetrically Neuro: Awake, oriented to person place, speech is normal but his voice is low and slow, cranial nerves intact, patient has right-sided weakness consistent with his previous stroke Psych: Pleasant, cooperative Medications Administered Discontinued Medications Generic Name Dose Route Start Last Admin Trade Name Freq PRN Reason Stop Dose Admin Sodium Chloride 1,000 mls @ 999 mls/hr 09/27/23 22:13 09/27/23 23:00 Ns IV 09/27/23 23:13 999 mls/hr .Q1H1M STA Administration Medical Decision Making Medical Decision Making MDM Narrative: 63-year-old male with pertinent history of seizure disorder, CVA with right-sided hemiparesis, nonischemic cardiomyopathy with combined systolic and diastolic dysfunction EF 25-30% status post AICD, AFib on Eliquis, FRAN on CPAP, hypertension who was brought to the emergency department by ambulance for evaluation of a lethargy. The patient was hospitalized from 09/25/2023 until 09/26/2023 for breakthrough seizures. The patient was discharged today and since being home he is become more lethargic. I did review the discharge summary, patient did have a low TSH with a normal free T4 therefore the patient's Synthroid was decreased to 25 mcg. At the time my evaluation the patient is lethargic but is able to answer questions, he has no complaints, he is oriented to person place. Vital signs were unremarkable. Physical examination is consistent with his previous stroke with right-sided weakness. 22:22 Differential diagnosis: ?Includes but is not limited to stroke, intracranial bleed, infectious process (pneumonia, urinary tract infection), electrolyte abnormalities, encephalopathy, alcohol intoxication, drug use, hypothyroid Following evaluation was ordered: CBC, CMP, lactic acid, troponin, ammonia, drug screen urine, urinalysis, blood cultures x2, TSH with reflex T4 chest x-ray, EKG, CT head Patient was initially treated with the following: Normal saline x1 L Course: 01:47 My interpretation patient's laboratory evaluation is as follows: WBC was normal 7200. Anemia with an H&H of 11 and 32.8-this is chronic. BUN elevated 1.50-chronic. Lactic acid elevated 2.9. High sensitive troponin I was detectable but not elevated at 23. Given his elevated lactic acid of 2.9 this improved to 2.3 after 1 L of fluid. Elevation is most likely caused by starvation ketosis from not eating and not related to an infection. Patient's high sensitive troponin initially was 23 and 3 hour troponin was 20 suggesting has not had any myocardial injury or infarction. Patient's free T4 is normal TSH is below detectable limits similar to previously. Urinalysis revealed trace leukocyte esterase but microscopic revealed no WBCs, RBCs or bacteria suggesting the does not have a urinary tract infection. Blood cultures from 09/25/2023 showed no growth in 48 hours. Patient's chest x-ray was unremarkable. Ammonia level was normal. CT scan of the brain unchanged per previously with no acute findings to explain his lethargy The patient still appears to be lethargic but can answer questions appropriately. This time I do not have a clear cause for this lethargy, possible that he may have had a another seizure and he has having a prolonged postictal period. I did discuss admission with the covering hospitalist, Dr. Manzano Admission/Observation Consideration of admission/observation: Escalation of care including admission/observation considered Consult Healthcare Provider Management of the patient was discussed with: Hospitalist Lab Data MDM Lab Attestation statement: I reviewed the patient's lab results. 09/27/23 20:29 09/27/23 20:29 Labs: Lab Results 09/27/23 09/27/23 09/27/23 Range/Units 20:29 22:50 23:57 WBC 7.2 (4.8-10.8) X10*3/uL RBC 3.20 L (4.60-5.80) X10*6/uL Hgb 11.1 L (14.0-18.0) g/dl Hct 32.8 L (42.0-52.0) % MCV 102.5 H (80.0-98.0) fL MCH 34.7 H (27.0-33.0) pg MCHC 33.8 (31.0-36.0) g/dl RDW 14.4 (11.0-16.0) % Plt Count 168 D (160-400) X10*3/uL MPV 10.7 (9.4-12.4) fL Immature Gran % (Auto) 0.7 H (0.0-0.4) % Neut % (Auto) 52.0 (45-73) % Lymph % (Auto) 29.8 (20-40) % [place] % (Auto) 15.7 H (2-11) % Eos % (Auto) 1.2 (0-4) % Baso % (Auto) 0.6 (0-2) % Lymph # (Auto) 2.2 (1.2-4.9) X10*3/uL Marion # (Auto) 1.1 (0.1-1.2) X10*3/uL Eos # (Auto) 0.1 (0.0-0.4) X10*3/uL Baso # (Auto) 0.0 (0.0-0.2) X10*3/uL Abs Immat Gran (auto) 0.05 H (0.00-0.03) X10*3/uL Absolute Neuts (auto) 3.8 (2.0-8.3) x10*3/uL Absolute Nucleated RBC 0.000 (0.0-0.012) X10*3/uL Nucleated RBC % (auto) 0.0 (0.0-0.2) /100WBC Sodium 145 (135-145) mmol/L Potassium 3.8 (3.3-5.1) mmol/L Chloride 107 (96-108) mmol/L Carbon Dioxide 27 (22-29) mmol/L Anion Gap 15 (12-20) BUN 18 H (9-16) mg/dL Creatinine 1.50 H (0.5-1.4) mg/dL Estim Creat Clear Calc 58.4 Estimated GFR 47 Random Glucose 114 (60-115) mg/dL Lactic Acid 2.9 H* (0.5-2.0) mmol/L Lactic Acid F/U @ 2Hr 2.5 H* (0.5-2.0) mmol/L Calcium 8.5 (8.4-10.2) mg/dL Magnesium 1.6 (1.6-2.6) mg/dL Total Bilirubin 0.9 (0.0-1.0) mg/dL AST 35 (5-37) U/L ALT 33 (0-40) U/L Alkaline Phosphatase 85 (39-117) U/L Ammonia 36 (13-55) umol/L Troponin I High Sens 23.2 20.2 (<3.5-35.0) ng/L Total Protein 5.9 L (6.5-8.0) g/dL Albumin 3.1 L (3.5-5.0) g/dL Lipase 16 (8-78) U/L TSH < 0.01 L (0.32-4.0) uIU/mL Free T4 1.73 (0.71-1.85) ng/dL Urine Color Yellow Urine Appearance Clear Urine pH 6.0 (5.0-9.0) Ur Specific [place] 1.020 (1.005-1.025) Urine Protein Trace (Neg-Trace) mg/dL Urine Glucose (UA) Negative (Negative) mg/dL Urine Ketones Negative (Negative) mg/dL Urine Blood Negative (Negative) Urine Nitrite Negative (Negative) Ur Leukocyte Esterase Trace H (Negative) Urine RBC 0-2 (0-2) /HPF Urine WBC 0-5 (0-5) /HPF Ur Squamous Epith Cells 0-2 (0-2) /HPF Urine Bacteria None Seen (None Seen) Hyaline Casts 6-10 (0-2) /LPF Urine Opiates Screen Not Detected (Not Detect) Ur Buprenorphine Scrn Not Detected (Not Detect) ng/mL Ur Oxycodone Screen Not Detected (Not Detect) ng/mL Urine Methadone Screen Not Detected (Not Detect) ng/mL Urine Fentanyl Screen Not Detected (Not Detect) Ur Barbiturates Screen Not Detected (Not Detect) Ur Phencyclidine Scrn Not Detected (Not Detect) Ur Amphetamines Screen Not Detected (Not Detect) U Benzodiazepines Scrn Not Detected (Not Detect) Urine Cocaine Screen Not Detected (Not Detect) U Marijuana (THC) Screen Not Detected (Not Detect) Ethyl Alcohol < 10 mg/dL Independent Interpretation I performed an independent interpretation of an: EKG and Plain X-Ray Interpretation: My interpretation patient's 12 EKG done at 20:20 hours is as follows: Normal sinus rhythm rate of 62, normal CO interval, prolonged QRS duration of 146 milliseconds, prolonged QTC of 485 milliseconds, left bundle-branch block, no ST segment elevation, no ST segment depression. Compared to EKG dated 09/25/2023 there has no significant change Radiology Impression Radiologist Impression: CT head/brain wo IV con IMPRESSION: 1. No acute intracranial pathology. 2. Chronic encephalomalacia/gliosis in the left MCA territory with associated volume loss resulting in stable 0.6 cm leftward midline shift. Dictated By: Maral Wheeler XR chest 1V IMPRESSION: No acute pulmonary findings. Dictated By: Puneet Charles MD External Record Review External record reviewed: Inpatient record Discharge Plan Discharge Patient Disposition: Admitted As Inpatient Prescriptions: No Action pyridoxine (vitamin B6) [Vitamin B-6] 100 mg tablet 100 mg PO BID Qty: 60 6RF divalproex [Depakote ER] 500 mg tablet extended release 24 hr 500 mg PO BID Qty: 60 6RF atorvastatin 80 mg tablet 80 mg PO BEDTIME Eliquis 5 mg tablet 5 mg PO BID bumetanide 1 mg tablet 1 mg PO DAILY Qty: 30 0RF methyl salicylate-menthol 15-10 % Cream 1 appl TOPICAL 5XD PRN (Reason: Muscle Pain) aspirin 81 mg Tablet,Delayed Release (Dr/Ec) 81 mg PO Q2D clonazepam 1 mg tablet 1 mg PO Q20M PRN (Reason: Seizure Activity) [facility] Inst[facility]: [facility]: administer before bedtime acetaminophen 500 mg capsule 1,000 mg PO Q4H PRN (Reason: fever or pain) amiodarone 200 mg tablet 400 mg PO DAILY sennosides-docusate sodium [Senna with Docusate Sodium] 8.6-50 mg Tablet 1 tab PO BID PRN (Reason: Constipation) mirtazapine 30 mg Tablet 15 mg PO BEDTIME levothyroxine [Synthroid] 25 mcg tablet 25 mcg PO DAILY Qty: 90 0RF levetiracetam 500 mg tablet 1,000 mg PO BID Qty: 120 0RF Rx Instructions: Take every morning 30 minutes before breakfast with a full glass of water carvedilol 12.5 mg tablet 12.5 mg PO BID Qty: 60 5RF Rx Instructions: must administer with a meal/food Entresto 49-51 mg tablet 1 tab PO BID Qty: 60 5RF Rx Instructions: dose reduced Print Language: New Zealander
[2023-09-27 22:06] VITALS: BP 101/60; PULSE 64; RESP 14; TEMP 36.6; O2SAT 97
--- NOTE | 2023-09-27 22:09 | PC.NURSE ---
pt very lethargic upon arrival, unable to answer questions but was awake. pt now talking, able to answer questions and follow commands. pt denies pain. does not think he had a seizure today
[2023-09-27 22:33] LABS: Ethanol < 10 mg/dL; Lipase 16 U/L (8-78); Reflex Lactate? Lactic Acid Added
[2023-09-27 22:53] LABS: TSH reflex Free T4 < 0.01 uIU/mL (0.32-4.0)
[2023-09-27 23:00] LABS: Appearance Urine Clear; Color Urine Yellow; Glucose Urine UA Negative (Negative); Leukocyte Esterase Urine Trace (Negative); Nitrite Urine Negative (Negative); UMIC TRIGGER UACC YES; Urine Blood Negative (Negative); Urine Ketones Negative (Negative); Urine Protein Trace mg/dL (Neg-Trace)
[2023-09-27] MEDS: 0.9 % Sodium Chloride 1,000 ML 999 ML IV (23:00)
[2023-09-27 23:09] LABS: Amphetamine Screen Urine Not Detected (Not Detect); Barbiturates, Urine Not Detected (Not Detect); Benzodiazepines Screen Urine Not Detected (Not Detect); Buprenorphine Scr Not Detected (Not Detect); Cannabinoid Screen Urine Not Detected (Not Detect); Cocaine Screen Urine Not Detected (Not Detect); Fentanyl, urine Not Detected (Not Detect); Methadone Screen, Urine Not Detected (Not Detect); Opiate Screen Urine Not Detected (Not Detect); Oxycodone Screen Urine Not Detected (Not Detect); Phencyclidine Screen Urine Not Detected (Not Detect)
[2023-09-27 23:15] LABS: Bacteria Urine None Seen (None Seen); RBC Urine 0-2 /HPF (0-2); Squamous Epithelial Cell Urine 0-2 /HPF (0-2); WBC Urine 0-5 /HPF (0-5)
[2023-09-27 23:34] LABS: Free T4 (Free Thyroxine) 1.73 ng/dL (0.71-1.85)
[2023-09-28] VITALS (8 sets, daily range): BP systolic 110–158; BP diastolic 58–68; PULSE 53–66; RESP 14–20; TEMP 36.3–36.9; O2SAT 95–99
[2023-09-28 00:23] LABS: Troponin-I High Sensitivity 20.2 ng/L (<3.5-35.0)
[2023-09-28 00:24] LABS: ~Lactic Acid-LAB USE ONLY 2.5 mmol/L (0.5-2.0)
[2023-09-28 02:00] LABS: Reflex Lactate? 2 Y
[2023-09-28 03:17] LABS: ~Lactic Acid-LAB USE ONLY 1.1 mmol/L (0.5-2.0)
[2023-09-28] MEDS: levETIRAcetam 1,000 MG TABLET 1000 MG PO ×2 (03:23→20:46)
[2023-09-28 03:28] LABS: Valproate 62.3 mcg/mL (50.0-100.0)
--- NOTE | 2023-09-28 04:01 | P.HPHOSP_ITS ---
History of Present Illness Date of Service: 09/28/23 Attending physician on admission: Tre Mora Chief Complaint: Seizures Donny Mora is 63 years old with past medical history significant for seizure disorder, CVA with right-sided hemiparesis, nonischemic cardiomyopathy with combined systolic and diastolic dysfunction (EF 25-50%) s/p AICD, atrial fibrillation on Eliquis, also on CPAP and essential hypertension was brought to the emergency department via EMS from home as he was noted to be lethargic by family. He was discharged yesterday from the hospitalist service for break into seizures. Patient was placed on a non-rebreather mask by EMS as he was found to have an oxygen saturation 80%. Recent seizure activity has been not been reported by ED. his Keppra was recently increased to 1 g b.i.d. he is also on valproic acid. EEG was showed no seizure activity. On evaluation, the patient was too confused to provide his own HPI. In the ED today, he was found to have stable vital signs. Blood workup showed no leukocytosis. Hemoglobin is 11.1 which is at baseline. Platelets level is 168. INR is 1.4. There are no electrolyte imbalances. Creatinine increased from 1.25 to 1.50. Lactic acid was initially elevated, 2.9 but now is normal. LFTs are normal. Troponin is negative x2. TSH is undetectable avoid T4 is 1.73. Ammonia is normal. Urinalysis showed no evidence of UTI. Urine drug screen is negative. CXR is negative. Head CT scan showed no acute intracranial abnormality. ECG showed NSR with left bundle branch block (old). ED tx: NS 1 L bolus, Keppra 1000 mg PO X1. Review of Systems 2 Review of Systems: All 12 systems were reviewed and normal except as noted in HPI. [facility] Medical History PAF (paroxysmal atrial fibrillation) Chronic heart failure DOT (acute kidney injury) Behavior disturbance Seizure as late effect of cerebrovascular accident (CVA) Restrictive lung disease Uncontrolled hypertension Acute decompensated heart failure Cerebrovascular accident CVA (cerebral vascular accident) Atrial fibrillation with rapid ventricular response Persistent atrial fibrillation Chronic systolic heart failure Gallstones CHF (congestive heart failure) Embolism of kidney CKD (chronic kidney disease), stage II Cardiac defibrillator in place NSVT (nonsustained ventricular tachycardia) NICM (nonischemic cardiomyopathy) Renal infarct Hypertension Family History Mother No problems noted. Father No problems noted. 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 Tobacco Use Status: Tobacco use Unknown Smoked in Last 30 Days: No e-Cigarette/Vaping Use: Never Used Second Hand Smoke Exposure: No Use of substances other than those prescribed or required for medical reasons: No Advance Directives: Yes Advance Directives on File: Yes Advance Directives Date on File: 10/18/20 Do you have a plan to hurt others: No Plan service: No Current occupational status: unemployed Cognitive needs: Yes Hearing needs: No Vision needs: No Meds Allergies Allergy/AdvReac Type Severity Reaction Status Date / Time No Known Allergies Allergy Verified 09/27/23 20:19 [No Known Allergies*] Active Medications: Current Medications Sodium Chloride (0.9 % Sodium Chloride Flush 3 Ml Syringe) 3 ml IVFLUSH [facility] Medications ?Medication ?Instructions ?Recorded ?Confirmed ?Last Taken ?Type apixaban 5 mg tablet (Eliquis) 5 mg PO BID 07/02/21 09/25/23 01/27/22 History atorvastatin 80 mg tablet 80 mg PO BEDTIME 07/02/21 09/25/23 01/27/22 History acetaminophen 500 mg capsule 1,000 mg PO Q4H PRN fever or pain 06/20/23 09/25/23 Unknown History aspirin 81 mg tablet,delayed 81 mg PO Q2D 06/20/23 09/25/23 Unknown History release clonazepam 1 mg tablet 1 mg PO Q20M PRN Seizure Activity 06/20/23 09/25/23 Unknown History methyl salicylate 15 %-menthol 10 1 appl topical 5XD PRN Muscle Pain 06/20/23 09/25/23 Unknown History % topical cream amiodarone 200 mg tablet 400 mg PO DAILY 09/25/23 09/25/23 Unknown History mirtazapine 30 mg tablet 15 mg PO BEDTIME 09/25/23 09/25/23 Unknown History sennosides 8.6 mg-docusate sodium 1 tab PO BID PRN Constipation 09/25/23 09/25/23 Unknown History 50 mg tablet (Senna with Docusate Sodium) Physical Exam 2 Vital Signs and Narrative: Vital Signs: Last Vital Signs Temp 97.8 F 09/27/23 22:06 Pulse 64 09/27/23 22:06 Resp 14 09/27/23 22:06 BP 101/60 09/27/23 22:06 Pulse Ox 97 09/27/23 22:06 O2 Del Method Room Air 09/27/23 22:06 Oxygen Flow Rate 4 09/27/23 20:17 BMI result Body Mass Index 34.0 Constitutional - Lethargic. Confused. HEENT - PERRL. Normal sclerae. Normal oral mucosa. Heart - S1S2, RRR. Lungs - Normal lung expansion, poor respiratory effort, No respiratory distress, CTA bilaterally Abdomen - NT / ND; +BS; No rebound or guarding. No ascites. Extremities - no calf tenderness bilaterally, no swelling Musculoskeletal - Normal inspection, normal ROM Skin - Warm/Dry Neurological - Lethargic. Right-sided hemiparesis (chronic). No facial droop. Does not follow simple commands. He was unable to tell me his name, year or place. Repetitive speech. Psychological - No agitation Results Labs 09/27/23 20:29 09/27/23 20:29 Labs: Laboratory Results - last 24 hr 09/27/23 09/27/23 09/27/23 20:29 22:50 23:57 MCV 102.5 H MCH 34.7 H MCHC 33.8 RDW 14.4 Plt Count 168 D MPV 10.7 Immature Gran % (Auto) 0.7 H Neut % (Auto) 52.0 Lymph % (Auto) 29.8 Cavalier % (Auto) 15.7 H Eos % (Auto) 1.2 Baso % (Auto) 0.6 Lymph # (Auto) 2.2 Cavalier # (Auto) 1.1 Eos # (Auto) 0.1 Baso # (Auto) 0.0 Abs Immat Gran (auto) 0.05 H Absolute Neuts (auto) 3.8 Absolute Nucleated RBC 0.000 Nucleated RBC % (auto) 0.0 Anion Gap 15 Estim Creat Clear Calc 58.4 Estimated GFR 47 Random Glucose 114 Lactic Acid 2.9 H* Lactic Acid F/U @ 2Hr 2.5 H* Lactic Acid F/U @ 4Hr Calcium 8.5 Magnesium 1.6 Total Bilirubin 0.9 AST 35 ALT 33 Alkaline Phosphatase 85 Ammonia 36 Troponin I High Sens 23.2 20.2 Total Protein 5.9 L Albumin 3.1 L Lipase 16 TSH < 0.01 L Free T4 1.73 Urine Color Yellow Urine Appearance Clear Urine pH 6.0 Ur Specific Hellier 1.020 Urine Protein Trace Urine Glucose (UA) Negative Urine Ketones Negative Urine Blood Negative Urine Nitrite Negative Ur Leukocyte Esterase Trace H Urine RBC 0-2 Urine WBC 0-5 Ur Squamous Epith Cells 0-2 Urine Bacteria None Seen Hyaline Casts 6-10 Urine Opiates Screen Not Detected Ur Buprenorphine Scrn Not Detected Ur Oxycodone Screen Not Detected Urine Methadone Screen Not Detected Urine Fentanyl Screen Not Detected Ur Barbiturates Screen Not Detected Valproic Acid Ur Phencyclidine Scrn Not Detected Ur Amphetamines Screen Not Detected U Benzodiazepines Scrn Not Detected Urine Cocaine Screen Not Detected U Marijuana (THC) Screen Not Detected Ethyl Alcohol < 10 09/28/23 03:01 MCV MCH MCHC RDW Plt Count MPV Immature Gran % (Auto) Neut % (Auto) Lymph % (Auto) Cavalier % (Auto) Eos % (Auto) Baso % (Auto) Lymph # (Auto) Cavalier # (Auto) Eos # (Auto) Baso # (Auto) Abs Immat Gran (auto) Absolute Neuts (auto) Absolute Nucleated RBC Nucleated RBC % (auto) Anion Gap Estim Creat Clear Calc Estimated GFR Random Glucose Lactic Acid Lactic Acid F/U @ 2Hr Lactic Acid F/U @ 4Hr 1.1 Calcium Magnesium Total Bilirubin AST ALT Alkaline Phosphatase Ammonia Troponin I High Sens Total Protein Albumin Lipase TSH Free T4 Urine Color Urine Appearance Urine pH Ur Specific Hellier Urine Protein Urine Glucose (UA) Urine Ketones Urine Blood Urine Nitrite Ur Leukocyte Esterase Urine RBC Urine WBC Ur Squamous Epith Cells Urine Bacteria Hyaline Casts Urine Opiates Screen Ur Buprenorphine Scrn Ur Oxycodone Screen Urine Methadone Screen Urine Fentanyl Screen Ur Barbiturates Screen Valproic Acid 62.3 Ur Phencyclidine Scrn Ur Amphetamines Screen U Benzodiazepines Scrn Urine Cocaine Screen U Marijuana (THC) Screen Ethyl Alcohol Imaging Radiologist's Impressions: Impressions Chest X-Ray 09/27/23 20:35 IMPRESSION: No acute pulmonary findings. Head CT 09/27/23 22:38 IMPRESSION: 1. No acute intracranial pathology. 2. Chronic encephalomalacia/gliosis in the left MCA territory with associated volume loss resulting in stable 0.6 cm leftward midline shift. Assessment and Plan (1) Acute alteration in mental status: Status: Acute (2) FRAN on CPAP: Status: Acute Plan Donny Mora is 63 y/o man admitted with: * Acute encephalopathy, s/p unwitnessed seizure --> postictal state? Admit to hospitalist service. Recent EEG 08/2023) - no significant abnormalities. Aspiration, fall and seizure precautions. Neuro checks every 2 hours Check Keppra and valproic acid level. Continue Keppra and valproic acid. Check venous blood gas to assess for CO2 retention. * Lactic acidosis. Secondary to recent seizures? Resolved. * Essential hypertension. Continue carvedilol. * FRAN. Nocturnal CPAP. * Hx of hypothyroidism? Subclinical hyperthyroidism? TSH is basically undetectable with normal free T4. Patient is taking Syntroid. * Hyperlipidemia. Continue statin. * History of CVA with right-sided hemiparesis. Continue aspirin and statin. * Atrial fibrillation, rate and rhythm controlled. Continue Eliquis and amiodarone. * Acute on chronic systolic and diastolic congestive heart failure. EF 25-30%. S/p AICD. No evidence of acute exacerbation. Continue Entresto, carvedilol and Bumex. * Chronic anemia. Hemoglobin at baseline. Continue to monitor. * Old LBBB. DVT prophylaxis: Eliquis. Code status: Full Patient will need hospitalization for at least 2 midnights for acute encephalopathy treatment with close monitoring of neurological status. Quality Stroke Does the patient have a stroke diagnosis?: No VTE Prior VTE?: No VTE Risk Level:: Medical - moderate - high VTE Device Contraindication: N/A - Device Ordered VTE Drug Contraindication: Treatment Not Indicated
[2023-09-28] MEDS: Divalproex Sodium ER 500 MG TAB.ER.24H PO ×2 (05:15→20:46)
[2023-09-28 05:56] LABS: MANUAL DIFF FLAG NO
[2023-09-28 05:57] LABS: Basophils Percent Auto 0.3 % (0-2); Eosinophils Absolute Auto 0.1 X10*3/uL (0.0-0.4); Eosinophils Percent Auto 0.7 % (0-4); Hematocrit 30.2 % (42.0-52.0); Hemoglobin 10.2 g/dl (14.0-18.0); Imm Gran Abs Auto 0.02 X10*3/uL (0.00-0.03); Imm Gran Pct Auto 0.3 % (0.0-0.4); Lymphocytes Absolute Auto 2.4 X10*3/uL (1.2-4.9); Lymphocytes Percent Auto 35.5 % (20-40); Mean Corpuscular HGB Conc 33.8 g/dl (31.0-36.0); Mean Corpuscular Hemoglobin 34.8 pg (27.0-33.0); Mean Corpuscular Volume 103.1 fL (80.0-98.0); Mean Platelet Volume 10.4 fL (9.4-12.4); Monocytes Absolute Auto 1.1 X10*3/uL (0.1-1.2); Monocytes Percent Auto 15.5 % (2-11); Neutrophils Absolute Auto 3.2 x10*3/uL (2.0-8.3); Neutrophils Percent Auto 47.7 % (45-73); Platelet Count 124 X10*3/uL (160-400); Red Blood Count 2.93 X10*6/uL (4.60-5.80); Red Cell Distribution Width 14.1 % (11.0-16.0); White Blood Count 6.8 X10*3/uL (4.8-10.8)
[2023-09-28 06:01] LABS: Venous Blood Gas Refer to POC result
[2023-09-28 06:02] LABS: VBG HCO3 32 mmol/L (22-26); VBG pCO2 48 mmHg; VBG pH 7.43 (7.32-7.43); VBG pO2 38 mmHg
[2023-09-28 06:11] LABS: Alanine Aminotransferase 27 U/L (0-40); Albumin Level 2.9 g/dL (3.5-5.0); Alkaline Phosphatase 81 U/L (39-117); Anion Gap 12 (12-20); Aspartate Amino Transferase 23 U/L (5-37); Bilirubin Total 0.7 mg/dL (0.0-1.0); Blood Urea Nitrogen 20 mg/dL (9-16); Calcium 8.4 mg/dL (8.4-10.2); Carbon Dioxide 28 mmol/L (22-29); Chloride 109 mmol/L (96-108); Creatinine Clr Calc Pharmacy 59.6; Estimated Glomerular Filt Rate 48; Glucose Random 94 mg/dL (60-115); Potassium 3.5 mmol/L (3.3-5.1); Sodium 145 mmol/L (135-145); Total Protein 5.3 g/dL (6.5-8.0)
[2023-09-28] MEDS: 0.9 % Sodium Chloride Flush 3 ML SYRINGE IVFLUSH ×3 (07:29→20:46)
--- NOTE | 2023-09-28 08:52 | PHA.MEDREC ---
Pharmacy Consult ? Medication Reconciliation Pharmacy has completed the medication reconciliation. med rec complete using discharge list from 09/27/23 from this facility.
--- NOTE | 2023-09-28 10:45 | PM.EVENT ---
Event Note Date of Service: 09/28/23 Event Note: 63-year-old male with pertinent history of seizure disorder, CVA with right-sided hemiparesis, nonischemic cardiomyopathy with combined systolic and diastolic dysfunction EF 25-30% status post AICD, AFib on Eliquis, FRAN on CPAP, hypertension who was brought to the emergency department by ambulance for evaluation of a lethargy,pt. was hospitalized from 09/25/2023 until 09/27/23 for breakthrough seizures, in the hospital patient noted to have no recurrent seizures EEG was unremarkable Depakote level was within normal range, dose of Keppra was increased to 1000 mg b.i.d. from baseline dose of 500 mg b.i.d. and patient was discharged home type of discharge patient was awake alert answering questions appropriately had chronic right-sided weakness and mild loss of right nasolabial fold, patient was sent back to [place] emergency room same evening due to lethargy , in the emergency room patient noted to be lethargic but was able to answer questions appropriately he complained of weakness and no other complaints, paramedics reported that his O2 saturation was 80% on room air, he was transported on a non-rebreather, in ED his O2 sats were 96% on room air. CT head repeat showed no acute abnormality Labs were unremarkable with stable H and H, renal function and electrolytes, except for lactic acid elevated at 2.9 improved to 2.5 with IV fluids, troponin 23.2 repeat 20.2, urinalysis unremarkable TSH less than 0.01 with free T4 1.73 unchanged from prior TSH Patient admitted to [facility] with a diagnosis of lethargy/acute encephalopathy This morning patient is awake but confused, complaining of being hungry, offers no other complaints, not aware of having a seizure. Neuro examination unchanged from yesterday Acute encephalopathy, remains pleasantly confused question unwitnessed seizure --> postictal state follow neuro checks and close clinical follow-up Recent EEG 08/2023) - no significant abnormalities. CT head no acute abnormality UA unremarkable, chest x-ray normal, VBG showed no CO2 retention Neuro examination unchanged , normal valproic acid level 62.3, Keppra level pending Continue Keppra and valproic acid. Lactic acidosis. Secondary to recent seizures? Trended down Neuro consult Essential hypertension. Continue carvedilol, Entresto and follow BP. FRAN. CPAP. Hx of hypothyroidism? Subclinical hyperthyroidism? TSH is basically undetectable with normal free T4. Dose of Synthroid reduced to 25 mcg will repeat TSH in 6 weeks Hyperlipidemia. Continue statin. History of CVA with right-sided hemiparesis. Continue aspirin and statin. Atrial fibrillation, in normal sinus rhythm , chronic left bundle branch block Continue Eliquis and amiodarone. Acute on chronic systolic and diastolic congestive heart failure. EF 25-30%. S/p AICD. No evidence of acute exacerbation. Continue Entresto, carvedilol and hold Bumex due to soft BP. Chronic anemia. Hemoglobin at baseline. Continue to monitor. DVT prophylaxis: Eliquis. Code status: Property Portfolio Officer Spent With Patient Time: Total time managing care of this patient today ____ minutes.
[2023-09-28] MEDS: Aspirin Enteric Coated 81 MG TABLET.DR PO (11:32)
[2023-09-28] MEDS: Amiodarone HCL 200 MG TABLET 400 MG PO (11:32)
[2023-09-28] MEDS: Apixaban 5 MG TABLET PO ×2 (11:33→20:46)
--- NOTE | 2023-09-28 15:00 | MHC.CM.PN ---
IMM 09/28/23, Sent to HCP, pt is SSO, CM spoke to and grand daughter on the phone because pt has altered mental status, is confused. Pt had [employer] [employer] services, but lost them because he turned 63. Task to be submitted to [facility] for home care services. He walks with a walker at home, takes care of him. [facility] HCP is on file and confirmed: , Aixa. DCP: home with services. CM to follow and assist with DC plan.
--- NOTE | 2023-09-28 16:15 | PC.NURSE ---
pt sleeping, wakes to verbal stimulus, pt alert to self only at this time, unable to state date or where he is, cardiac tech intact, vss, seizure precautions intact- no seizure activity noted at this time, lungs clear/diminished, call reid within reach, will continue to monitor
--- NOTE | 2023-09-28 16:23 | PC.NURSE ---
pt had coreg ordered, pt bp was wnl but on the lower side, dr. estrella was notified who asked for this nurse to hold the medication.
[2023-09-28] MEDS: Pyridoxine HCl (Vitamin B6) 50 MG TABLET 100 MG PO (20:46)
[2023-09-28] MEDS: Mirtazapine 15 MG TABLET PO (20:46)
[2023-09-28] MEDS: Sacubitril/Valsartan 49/51 1 TAB TABLET PO (20:46)
[2023-09-28] MEDS: Atorvastatin Calcium 80 MG TABLET PO (20:46)
[2023-09-29] VITALS (10 sets, daily range): BP systolic 100–156; BP diastolic 55–84; PULSE 59–94; RESP 16–20; TEMP 36.1–36.5; O2SAT 93–100
[2023-09-29] MEDS: Levothyroxine Sodium 25 MCG TABLET PO (05:22)
[2023-09-29] MEDS: Sacubitril/Valsartan 49/51 1 TAB TABLET PO ×2 (09:46→20:41)
[2023-09-29] MEDS: Amiodarone HCL 200 MG TABLET 400 MG PO (09:46)
[2023-09-29] MEDS: Pyridoxine HCl (Vitamin B6) 50 MG TABLET 100 MG PO ×2 (09:46→20:41)
[2023-09-29] MEDS: levETIRAcetam 1,000 MG TABLET 1000 MG PO (09:46)
[2023-09-29] MEDS: Apixaban 5 MG TABLET PO ×2 (09:46→20:41)
[2023-09-29] MEDS: Divalproex Sodium ER 500 MG TAB.ER.24H PO ×2 (09:46→20:41)
[2023-09-29] MEDS: carvediloL 12.5 MG TABLET PO ×2 (09:47→17:09)
[2023-09-29] MEDS: 0.9 % Sodium Chloride Flush 3 ML SYRINGE IVFLUSH ×3 (09:48→20:42)
--- NOTE | 2023-09-29 10:40 | P.CDIM_ITS ---
PROVIDER RESPONSE TEXT: To clarify, the appropriate diagnosis supported by the clinical indicators: Acute QUERY TEXT: PHYSICIAN'S DOCUMENTATION REQUEST Date of Query: 09/29/2023 08:53 AM EDT Patient Name: Donny Costa Admit Date: 09/28/2023 Dear Nathan Koroma, A review of the medical record indicates additional documentation may be needed. Please review below and update the documentation accordingly. Clinical Indicators: Progress notes: Lactic acidosis, secondary to recent seizure? Trended down LA 2.5 h Clarify which of the following accurately represents the acuity of the Lactic acidosis: Acute Acute on chronic Other (explain) Clinically unable to determine (explain) Thank you, Corrine Mcdaniel, CCS, CDIS Use of terms such as suspected, likely, concern for, or probable (associated with a specific diagnosi s that is being evaluated, monitored, or treated as if it exists) are acceptable and can be coded in the inpatient se tting, when documented at the time of discharge. Please use your independent medical judgment in providing your response. THIS QUERY IS PART OF THE PERMANENT MEDICAL RECORD
--- NOTE | 2023-09-29 13:59 | P.PNIM_ITS ---
Subjective Subjective Date of Service: 09/29/23 Interval History: History obtained via conference interpreter Patient unable to recall what brought him back to [place] ED Denies headache, no dizziness, no new weakness and stepdaughter at bedside as per when patient returned back home from previous hospitalization he was fine she gave him a tub bath but he was noted to be weak and she was unable to lift him up, she noted eyes rolled back and he was drooling. is concerned about frequent episodes of seizure, requesting more help at home. Review of Systems All other system reviewed and negative Physical Exam 2 Vital Signs: Vital Signs: Last Vital Signs Temp 97.0 F 09/29/23 11:41 Pulse 94 09/29/23 11:41 Resp 20 09/29/23 11:41 BP 116/66 09/29/23 11:41 Pulse Ox 94 09/29/23 11:41 O2 Del Method Room Air 09/29/23 11:41 Oxygen Flow Rate 4 09/27/23 20:17 BMI result Body Mass Index 34.0 Const: Other: General awake alert x3 no acute distress Neck supple, no JVD Regular rate and rhythm, S1-S2 heard Regular breath sounds bilaterally, no wheezing or crackles appreciated Abdomen soft non tender, no guarding, no rigidity Psych: Normal mood No pedal edema Neuro loss of right nasolabial fold/right hemiparesis/expressive aphasia Objective Data Active Medications Amiodarone HCl (Amiodarone Hcl 200 Mg Tablet) 400 mg PO DAILY [facility] Last Admin: 09/29/23 09:46 Dose: 400 mg Documented By: HERI Apixaban (Apixaban 5 Mg Tablet) 5 mg PO BID [facility] Last Admin: 09/29/23 09:46 Dose: 5 mg Documented By: HERI Aspirin (Aspirin Enteric Coated 81 Mg Tablet.) 81 mg PO Q48H [facility] Last Admin: 09/28/23 11:32 Dose: 81 mg Documented By: DEAN Atorvastatin Calcium (Atorvastatin Calcium 80 Mg Tablet) 80 mg PO BEDTIME [facility] Last Admin: 09/28/23 20:46 Dose: 80 mg Documented By: JAVIER Carvedilol (Carvedilol 12.5 Mg Tablet) 12.5 mg PO BIDWM [facility]; Protocol Last Admin: 09/29/23 09:47 Dose: 12.5 mg Documented By: HERI Clonazepam (Clonazepam 1 Mg Tablet) 1 mg PO Q20M PRN PRN Reason: Seizure Activity Divalproex Sodium (Divalproex Sodium Er 500 Mg Tab.Er.24h) 500 mg PO BID [facility] Last Admin: 09/29/23 09:46 Dose: 500 mg Documented By: HERI Levetiracetam (Levetiracetam 500 Mg Tablet) 500 mg PO BID [facility] Levothyroxine Sodium (Levothyroxine Sodium 25 Mcg Tablet) 25 mcg PO DAILY@0600 [facility] Last Admin: 09/29/23 05:22 Dose: 25 mcg Documented By: ANTOIC Mirtazapine (Mirtazapine 15 Mg Tablet) 15 mg PO BEDTIME [facility] Last Admin: 09/28/23 20:46 Dose: 15 mg Documented By: JAVIER Pyridoxine HCl (Pyridoxine Hcl (Vitamin B6) 50 Mg Tablet) 100 mg PO BID [facility] Last Admin: 09/29/23 09:46 Dose: 100 mg Documented By: HERI Sacubitril/Valsartan (Sacubitril/Valsartan 49/51 1 Tab Tablet) 1 tab PO BID [facility]; Protocol Last Admin: 09/29/23 09:46 Dose: 1 tab Documented By: HERI Senna/Docusate Sodium (Sennosides/Docusate Sodium Tablet) 1 tab PO BID PRN PRN Reason: Constipation Sodium Chloride (0.9 % Sodium Chloride Flush 3 Ml Syringe) 3 ml IVFLUSH QSHIFT [facility] Last Admin: 09/29/23 09:48 Dose: 3 ml Documented By: HERI Labs 09/28/23 05:51 09/28/23 05:51 Microbiology Microbiology Results: Microbiology 09/27/23 23:57 Blood Culture - Preliminary Blood - Venous No growth after 24 hours. 09/27/23 22:50 Blood Culture - Preliminary Blood - Venous No growth after 24 hours. Assessment and Plan (1) Breakthrough seizure: Status: Acute Plan Acute Toxic metabolic encephalopathy: Question related to seizure now resolved, spoke with family patient is at baseline now, he has expressive aphasia he does understand but can not express himself No seizure-like activity noted since admission. Recent EEG 08/2023) - no significant abnormalities. CT head no acute abnormality UA unremarkable, chest x-ray normal, VBG showed no CO2 retention Neuro examination unchanged , normal valproic acid level 62.3, Keppra level pending Continue Keppra dose change back to 500 b.i.d. due to behavioral issues with higher dosage and valproic acid. Call patient's primary neurologist Dr. Irwin and left message to discuss treatment plan . Case discussed with Dr. Fernando during last admission and dose of Keppra was increased to 1000 b.i.d. Acute Lactic acidosis. Secondary to recent seizures? Resolved Essential hypertension. Continue carvedilol, Entresto and follow BP. FRAN. CPAP. Hx of hypothyroidism? Subclinical hyperthyroidism? TSH is basically undetectable with normal free T4. Dose of Synthroid reduced to 25 mcg will repeat TSH in 6 weeks Hyperlipidemia. Continue statin. History of CVA with right-sided hemiparesis. Continue aspirin and statin. History of expressive aphasia due to prior stroke. Atrial fibrillation, in normal sinus rhythm , chronic left bundle branch block Continue Eliquis and amiodarone will change dose to 200 mg daily. Acute on chronic systolic and diastolic congestive heart failure. EF 25-30%. S/p AICD. No evidence of acute exacerbation. Continue Entresto, carvedilol and hold Bumex due to soft BP. Chronic anemia. Hemoglobin at baseline. Continue to monitor. DVT prophylaxis: Eliquis. Code status: Full Disposition seen by PT they recommend short-term rehab In my clinical judgment patient need continued inpatient hospitalization for close monitoring of recurrent episodes of seizure and medication adjustment and safe disposition to rehab Quality Stroke Does the patient have a stroke diagnosis?: No VTE Prior VTE?: No VTE Risk Level:: Medical - moderate - high VTE Device Contraindication: N/A - Device Ordered VTE Drug Contraindication: Treatment Not Indicated
--- NOTE | 2023-09-29 16:30 | MHC.CM.PN ---
EMR reviewed and per MD rounds, pt is medically cleared for discharge. PT evaluated pt and is recommending [facility]. This CM called and spoke with pts HCP/Aixa and she would like to pt go to [facility] but would like his to stay in [place] so that she can visit him via bus transportation as she does not drive. Aixa agreeable to this CM placing STR referral to SNF's in [place].
[2023-09-29] MEDS: Mirtazapine 15 MG TABLET PO (20:41)
[2023-09-29] MEDS: Atorvastatin Calcium 80 MG TABLET PO (20:41)
[2023-09-29] MEDS: Sennosides/Docusate Sodium TABLET 1 TAB PO (20:41)
[2023-09-29] MEDS: levETIRAcetam 500 MG TABLET PO (20:42)
[2023-09-30 03:11] VITALS: BP 125/66; PULSE 60; RESP 20; TEMP 36.4; O2SAT 97
[2023-09-30] MEDS: Levothyroxine Sodium 25 MCG TABLET PO (05:12)
[2023-09-30 07:40] VITALS: BP 151/73; PULSE 81; RESP 18; TEMP 36.9; O2SAT 95
[2023-09-30] MEDS: Aspirin Enteric Coated 81 MG TABLET.DR PO (10:16)
[2023-09-30] MEDS: levETIRAcetam 500 MG TABLET PO ×2 (10:16→21:56)
[2023-09-30] MEDS: Divalproex Sodium ER 500 MG TAB.ER.24H PO (10:16)
[2023-09-30] MEDS: Sacubitril/Valsartan 49/51 1 TAB TABLET PO ×2 (10:16→21:58)
[2023-09-30] MEDS: carvediloL 12.5 MG TABLET PO ×2 (10:16→17:17)
[2023-09-30] MEDS: Apixaban 5 MG TABLET PO ×2 (10:17→21:57)
[2023-09-30] MEDS: Amiodarone HCL 200 MG TABLET PO (10:17)
[2023-09-30] MEDS: Pyridoxine HCl (Vitamin B6) 50 MG TABLET 100 MG PO ×2 (10:17→21:57)
[2023-09-30] MEDS: 0.9 % Sodium Chloride Flush 3 ML SYRINGE IVFLUSH ×3 (10:17→22:00)
[2023-09-30 11:24] VITALS: BP 109/72; PULSE 61; RESP 18; TEMP 36.7; O2SAT 97
--- NOTE | 2023-09-30 14:28 | P.PNIM_ITS ---
Subjective Subjective Date of Service: 09/30/23 Interval History: History obtained via taffy puller No seizure-like activity noted since hospitalization, no acute issues overnight tolerating diet. Patient denies headache, no lightheadedness, no dizziness, no shakiness, no new weakness, continued to have expressive aphasia but able to communicate. Review of Systems All other system reviewed and are negative. Physical Exam 2 Vital Signs: Vital Signs: Last Vital Signs Temp 98.0 F 09/30/23 11:24 Pulse 61 09/30/23 11:24 Resp 18 09/30/23 11:24 BP 109/72 09/30/23 11:24 Pulse Ox 97 09/30/23 11:24 O2 Del Method Room Air 09/30/23 11:24 Oxygen Flow Rate 4 09/27/23 20:17 BMI result Body Mass Index 34.0 Const: Other: General awake alert x3 no acute distress Neck supple, no JVD Regular rate and rhythm, S1-S2 heard Regular breath sounds bilaterally, no wheezing or crackles appreciated Abdomen soft non tender, no guarding, no rigidity Psych: Normal mood No pedal edema Neuro loss of right nasolabial fold/right hemiparesis/expressive aphasia Objective Data Active Medications Amiodarone HCl (Amiodarone Hcl 200 Mg Tablet) 200 mg PO DAILY [facility] Last Admin: 09/30/23 10:17 Dose: 200 mg Documented By: ISMAEL Apixaban (Apixaban 5 Mg Tablet) 5 mg PO BID [facility] Last Admin: 09/30/23 10:17 Dose: 5 mg Documented By: ISMAEL Aspirin (Aspirin Enteric Coated 81 Mg Tablet.) 81 mg PO Q48H [facility] Last Admin: 09/30/23 10:16 Dose: 81 mg Documented By: ISMAEL Atorvastatin Calcium (Atorvastatin Calcium 80 Mg Tablet) 80 mg PO BEDTIME [facility] Last Admin: 09/29/23 20:41 Dose: 80 mg Documented By: LORENE Carvedilol (Carvedilol 12.5 Mg Tablet) 12.5 mg PO BIDWM [facility]; Protocol Last Admin: 09/30/23 10:16 Dose: 12.5 mg Documented By: ISMAEL Clonazepam (Clonazepam 1 Mg Tablet) 1 mg PO Q20M PRN PRN Reason: Seizure Activity Divalproex Sodium (Divalproex Sodium Er 500 Mg Tab.Er.24h) 500 mg PO BID [facility] Last Admin: 09/30/23 10:16 Dose: 500 mg Documented By: ISMAEL Levetiracetam (Levetiracetam 500 Mg Tablet) 500 mg PO BID [facility] Last Admin: 09/30/23 10:16 Dose: 500 mg Documented By: ISMAEL Levothyroxine Sodium (Levothyroxine Sodium 25 Mcg Tablet) 25 mcg PO DAILY@0600 [facility] Last Admin: 09/30/23 05:12 Dose: 25 mcg Documented By: OLRENE Mirtazapine (Mirtazapine 15 Mg Tablet) 15 mg PO BEDTIME [facility] Last Admin: 09/29/23 20:41 Dose: 15 mg Documented By: LORENE Pyridoxine HCl (Pyridoxine Hcl (Vitamin B6) 50 Mg Tablet) 100 mg PO BID [facility] Last Admin: 09/30/23 10:17 Dose: 100 mg Documented By: ISMAEL Sacubitril/Valsartan (Sacubitril/Valsartan 49/51 1 Tab Tablet) 1 tab PO BID [facility]; Protocol Last Admin: 09/30/23 10:16 Dose: 1 tab Documented By: ISMAEL Senna/Docusate Sodium (Sennosides/Docusate Sodium Tablet) 1 tab PO BID PRN PRN Reason: Constipation Last Admin: 09/29/23 20:41 Dose: 1 tab Documented By: LORENE Sodium Chloride (0.9 % Sodium Chloride Flush 3 Ml Syringe) 3 ml IVFLUSH QSHIFT [facility] Last Admin: 09/30/23 10:17 Dose: 3 ml Documented By: ISMAEL Labs 09/28/23 05:51 09/28/23 05:51 Microbiology Microbiology Results: Microbiology 09/27/23 23:57 Blood Culture - Preliminary Blood - Venous No growth after 48 hours. 09/27/23 22:50 Blood Culture - Preliminary Blood - Venous No growth after 48 hours. Assessment and Plan (1) Breakthrough seizure: Status: Acute Plan Acute Toxic metabolic encephalopathy: Question related to seizure now resolved, spoke with family patient is at baseline , he has expressive aphasia he does understand but can not express himself clearly. No seizure-like activity noted since admission. Recent EEG 08/2023) - no significant abnormalities. CT head no acute abnormality UA unremarkable, chest x-ray normal, VBG showed no CO2 retention Neuro examination unchanged , normal valproic acid level 62.3, Keppra level pending Continue Keppra 500 b.i.d. will avoid higher dosage due to behavioral issues , continue valproic acid Spoke with patient's primary neurologist Dr. Irwin she recommend to increase dose of valproic acid to 750 mg at bedtime that will help inpatients behavior Acute Lactic acidosis. Secondary to recent seizures? Resolved Essential hypertension. Continue carvedilol, Entresto and follow BP. FRAN. CPAP. Hx of hypothyroidism? Subclinical hyperthyroidism? TSH is basically undetectable with normal free T4. Dose of Synthroid reduced to 25 mcg will repeat TSH in 6 weeks Hyperlipidemia. Continue statin. History of CVA with right-sided hemiparesis. Continue aspirin and statin. History of expressive aphasia due to prior stroke. Atrial fibrillation, in normal sinus rhythm , chronic left bundle branch block Continue Eliquis and amiodarone will change dose to 200 mg daily. Acute on chronic systolic and diastolic congestive heart failure. EF 25-30%. S/p AICD. No evidence of acute exacerbation. Continue Entresto, carvedilol and hold Bumex due to soft BP. Chronic anemia. Hemoglobin at baseline. Continue to monitor. DVT prophylaxis: Eliquis. Code status: Full Disposition seen by PT they recommend short-term rehab In my clinical judgment patient need continued inpatient hospitalization for close monitoring of recurrent episodes of seizure and medication adjustment and safe disposition to rehab Quality Stroke Does the patient have a stroke diagnosis?: No VTE Prior VTE?: No VTE Risk Level:: Medical - moderate - high VTE Device Contraindication: N/A - Device Ordered VTE Drug Contraindication: Treatment Not Indicated
[2023-09-30 15:30] VITALS: BP 125/67; PULSE 51; RESP 16; TEMP 36.3; O2SAT 98
[2023-09-30 19:33] VITALS: BP 107/60; PULSE 64; RESP 18; TEMP 35.7; O2SAT 100
[2023-09-30] MEDS: Divalproex Sodium ER 250 MG TAB.ER.24H 750 MG PO (21:54)
[2023-09-30] MEDS: Mirtazapine 15 MG TABLET PO (21:58)
[2023-09-30] MEDS: Atorvastatin Calcium 80 MG TABLET PO (21:58)
[2023-10-01] VITALS (7 sets, daily range): BP systolic 98–136; BP diastolic 53–73; PULSE 50–78; RESP 16–20; TEMP 36.1–36.9; O2SAT 95–100
[2023-10-01] MEDS: Levothyroxine Sodium 25 MCG TABLET PO (05:21)
[2023-10-01] MEDS: Divalproex Sodium ER 500 MG TAB.ER.24H PO (09:59)
[2023-10-01] MEDS: Sacubitril/Valsartan 49/51 1 TAB TABLET PO ×2 (09:59→20:48)
[2023-10-01] MEDS: Apixaban 5 MG TABLET PO ×2 (09:59→20:49)
[2023-10-01] MEDS: 0.9 % Sodium Chloride Flush 3 ML SYRINGE IVFLUSH ×2 (09:59→16:41)
[2023-10-01] MEDS: Amiodarone HCL 200 MG TABLET PO (09:59)
[2023-10-01] MEDS: Pyridoxine HCl (Vitamin B6) 50 MG TABLET 100 MG PO ×2 (09:59→20:48)
[2023-10-01] MEDS: carvediloL 12.5 MG TABLET PO ×2 (09:59→16:41)
[2023-10-01] MEDS: levETIRAcetam 500 MG TABLET PO ×2 (09:59→20:48)
--- NOTE | 2023-10-01 14:07 | MHC.CM.PN ---
Per MD, Patient is medically cleared for dc to SNF/STR today. CM met with Patient and his /HCP/Aixa at bedside and they have chosen [facility]. IMM addressed with Patient and and original was given to them and a copy has been placed on the chart.
--- NOTE | 2023-10-01 15:04 | P.PNIM_ITS ---
Subjective Subjective Date of Service: 10/01/23 Interval History: History obtained via bull bucker No acute complaints No seizure-like activity noted at bedside answered all her questions. Review of Systems All other system reviewed and negative Physical Exam 2 Vital Signs: Vital Signs: Last Vital Signs Temp 98.4 F 10/01/23 11:21 Pulse 58 10/01/23 11:21 Resp 18 10/01/23 11:21 BP 124/73 10/01/23 11:21 Pulse Ox 97 10/01/23 11:21 O2 Del Method Room Air 10/01/23 11:21 Oxygen Flow Rate 4 09/27/23 20:17 BMI result Body Mass Index 34.0 Const: Other: General awake alert x3 no acute distress Neck supple, no JVD Regular rate and rhythm, S1-S2 heard Regular breath sounds bilaterally, no wheezing or crackles appreciated Abdomen soft non tender, no guarding, no rigidity Psych: Normal mood No pedal edema Neuro loss of right nasolabial fold/right hemiparesis/expressive aphasia Objective Data Active Medications Amiodarone HCl (Amiodarone Hcl 200 Mg Tablet) 200 mg PO DAILY [facility] Last Admin: 10/01/23 09:59 Dose: 200 mg Documented By: INES Apixaban (Apixaban 5 Mg Tablet) 5 mg PO BID [facility] Last Admin: 10/01/23 09:59 Dose: 5 mg Documented By: INES Aspirin (Aspirin Enteric Coated 81 Mg Tablet.Dr) 81 mg PO Q48H [facility] Last Admin: 09/30/23 10:16 Dose: 81 mg Documented By: ISMAEL Atorvastatin Calcium (Atorvastatin Calcium 80 Mg Tablet) 80 mg PO BEDTIME [facility] Last Admin: 09/30/23 21:58 Dose: 80 mg Documented By: MARIYA Carvedilol (Carvedilol 12.5 Mg Tablet) 12.5 mg PO BIDWM [facility]; Protocol Last Admin: 10/01/23 09:59 Dose: 12.5 mg Documented By: INES Clonazepam (Clonazepam 1 Mg Tablet) 1 mg PO Q20M PRN PRN Reason: Seizure Activity Divalproex Sodium (Divalproex Sodium Er 500 Mg Tab.Er.24h) 500 mg PO DAILY [facility] Last Admin: 10/01/23 09:59 Dose: 500 mg Documented By: INES Divalproex Sodium (Divalproex Sodium Er 250 Mg Tab.Er.24h) 750 mg PO BEDTIME [facility] Last Admin: 09/30/23 21:54 Dose: 750 mg Documented By: MARIYA Levetiracetam (Levetiracetam 500 Mg Tablet) 500 mg PO BID [facility] Last Admin: 10/01/23 09:59 Dose: 500 mg Documented By: INES Levothyroxine Sodium (Levothyroxine Sodium 25 Mcg Tablet) 25 mcg PO DAILY@0600 [facility] Last Admin: 10/01/23 05:21 Dose: 25 mcg Documented By: MARIYA Mirtazapine (Mirtazapine 15 Mg Tablet) 15 mg PO BEDTIME [facility] Last Admin: 09/30/23 21:58 Dose: 15 mg Documented By: MARIYA Pyridoxine HCl (Pyridoxine Hcl (Vitamin B6) 50 Mg Tablet) 100 mg PO BID [facility] Last Admin: 10/01/23 09:59 Dose: 100 mg Documented By: INES Sacubitril/Valsartan (Sacubitril/Valsartan 49/51 1 Tab Tablet) 1 tab PO BID [facility]; Protocol Last Admin: 10/01/23 09:59 Dose: 1 tab Documented By: INES Senna/Docusate Sodium (Sennosides/Docusate Sodium Tablet) 1 tab PO BID PRN PRN Reason: Constipation Last Admin: 09/29/23 20:41 Dose: 1 tab Documented By: LORENE Sodium Chloride (0.9 % Sodium Chloride Flush 3 Ml Syringe) 3 ml IVFLUSH QSHIFT [facility] Last Admin: 10/01/23 09:59 Dose: 3 ml Documented By: INES Labs 09/28/23 05:51 09/28/23 05:51 Assessment and Plan (1) Breakthrough seizure: Status: Acute Plan Acute Toxic metabolic encephalopathy: Question related to seizure now resolved, spoke with family patient is at baseline , he has expressive aphasia he does understand but can not express himself clearly. No seizure-like activity noted since admission. Recent EEG 08/2023) - no significant abnormalities. CT head no acute abnormality UA unremarkable, chest x-ray normal, VBG showed no CO2 retention Neuro examination unchanged , normal valproic acid level 62.3, Keppra level pending Continue Keppra 500 b.i.d. will avoid higher dosage due to behavioral issues , continue valproic acid Spoke with patient's primary neurologist Dr. Irwin she recommend to increase dose of valproic acid to 750 mg at bedtime that will help inpatients behavior Acute Lactic acidosis. Secondary to recent seizures? Resolved Essential hypertension. Continue carvedilol, Entresto and follow BP. FRAN. CPAP. Hx of hypothyroidism? Subclinical hyperthyroidism? TSH is basically undetectable with normal free T4. Dose of Synthroid reduced to 25 mcg will repeat TSH in 6 weeks Hyperlipidemia. Continue statin. History of CVA with right-sided hemiparesis. Continue aspirin and statin. History of expressive aphasia due to prior stroke. Atrial fibrillation, in normal sinus rhythm , chronic left bundle branch block Continue Eliquis and amiodarone dose reduced to 200 mg daily after discussing with Cardiology. Acute on chronic systolic and diastolic congestive heart failure. EF 25-30%. S/p AICD. No evidence of acute exacerbation. Continue Entresto, carvedilol and resume low-dose Bumex 0.5 mg daily Chronic anemia. Hemoglobin at baseline. Continue to monitor. DVT prophylaxis: Eliquis. Code status: Full Disposition seen by PT they recommend short-term rehab CM arranging for safe disposition. In my clinical judgment patient need continued inpatient hospitalization for close monitoring of recurrent episodes of seizure and medication adjustment and safe disposition to rehab Quality Stroke Does the patient have a stroke diagnosis?: No VTE Prior VTE?: No VTE Risk Level:: Medical - moderate - high VTE Device Contraindication: N/A - Device Ordered VTE Drug Contraindication: Treatment Not Indicated
--- NOTE | 2023-10-01 15:07 | P.DS_ITS ---
DS: Providers Provider Date of admission: 09/28/23 03:58 Primary care physician: Gemini Fuentes MD Consults: 09/28/23 10:38 Consult to Neurology Routine Consulting Provider: [facility] Reason for consultation: break thru seizure /readmission Has provider been notified: No DS: Diagnosis Discharge Diagnosis (1) Breakthrough seizure: Status: Acute DS: Summary Hospital Course Hospital Course: History of presenting illness: Date of Service: 09/28/23 Attending physician on admission: Chief Complaint: Seizures Donny Mora is 63 years old with past medical history significant for seizure disorder, CVA with right-sided hemiparesis, nonischemic cardiomyopathy with combined systolic and diastolic dysfunction (EF 25-50%) s/p AICD, atrial fibrillation on Eliquis, also on CPAP and essential hypertension was brought to the emergency department via EMS from home as he was noted to be lethargic by family. He was discharged yesterday from the hospitalist service for break thru seizures. Patient was placed on a non-rebreather mask by EMS as he was found to have an oxygen saturation 80%. Recent seizure activity has been not been reported by ED. his Keppra was recently increased to 1 g b.i.d. he is also on valproic acid. EEG showed no seizure activity. On evaluation, the patient was too confused to provide his own HPI. In the ED today, he was found to have stable vital signs. Blood workup showed no leukocytosis. Hemoglobin is 11.1 which is at baseline. Platelets level is 168. INR is 1.4. There are no electrolyte imbalances. Creatinine increased from 1.25 to 1.50. Lactic acid was initially elevated, 2.9 but now is normal. LFTs are normal. Troponin is negative x2. TSH is undetectable avoid T4 is 1.73. Ammonia is normal. Urinalysis showed no evidence of UTI. Urine drug screen is negative. CXR is negative. Head CT scan showed no acute intracranial abnormality. ECG showed NSR with left bundle branch block (old). ED tx: NS 1 L bolus, Keppra 1000 mg PO X1. Hospital course: 63-year-old male with pertinent history of seizure disorder, CVA with right- sided hemiparesis, nonischemic cardiomyopathy with combined systolic and diastolic dysfunction EF 25-30% status post AICD, AFib on Eliquis, FRAN on CPAP, hypertension who was brought to the emergency department by ambulance for evaluation of lethargy,pt. was hospitalized from 09/25/2023 until 09/27/23 for b reakthrough seizures, in the hospital patient noted to have no recurrent seizures, EEG was unremarkable, Depakote level was within normal range, dose of Keppra was increased to 1000 mg b.i.d. from baseline dose of 500 mg b.i.d. and patient was discharged home. Patient was sent back to [facility] emergency room same evening due to lethargy , in the emergency room patient noted to be lethargic but was able to answer questions appropriately he complained of weakness and no other complaints, paramedics reported that his O2 saturation was 80% on room air, he was transported on a non-rebreather, in ED his O2 sats were 96% on room air, CT head repeat showed no acute abnormality Labs were unremarkable with stable H and H, renal function and electrolytes, except for lactic acid elevated at 2.9 improved to 1.1 with IV fluids, troponin 23.2 repeat 20.2, urinalysis unremarkable, TSH less than 0.01 with free T4 1.73 unchanged from prior TSH Patient re admitted to [facility] with a diagnosis of lethargy/acute encephalopathy. Acute Toxic metabolic encephalopathy/lethargy patient admitted to telemetry unit, no acute etiology was found, had no seizure-like activity, tele monitor showed no arrhythmias, CT head showed no acute abnormality, had recent negative EEG,UA unremarkable, chest x-ray normal, VBG showed no CO2 retention, normal valproic acid level 62.3 pt. has expressive aphasia due to prior stroke he does understand but can not express himself clearly, now at baseline as per family, dose of Keppra was increased to 1000 mg twice daily during last admission but patient has history of behavioral issues with high dose of Keppra therefore dose of Keppra reduced back to 500 mg b.i.d. Discussed seizure management with patient's primary neurologist Dr. Irwin she recommended to increase dose of valproic acid to 750 mg at bedtime and continue daytime dose of 500 mg, to help with behavior and seizures, patient remained hemodynamically stable at baseline mentation, with no recurrent seizures, he was evaluated by Physical therapy and they recommend short-term rehab due to unsteady gait. Noted to have acute lactic acidosis question due to dehydration versus seizure resolved with IV fluids. Essential hypertension. stable blood pressures recommend to continue carvedilol, and Entresto . FRAN. CPAP. Hx of hypothyroidism? Subclinical hyperthyroidism? TSH is basically undetec table with normal free T4,dose of Synthroid reduced to 25 mcg recommend to repeat TSH in 6 weeks Hyperlipidemia. Continue statin. History of CVA with residual right-sided hemiparesis and expressive aphasia, continue aspirin and statin. 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 Acute on chronic systolic and diastolic congestive heart failure. EF 25-30%. S/p AICD, no acute exacerbation noted continued on Entresto, Coreg and dose of Bumex reduced to 0.5 mg due to soft blood pressures. Chronic anemia. Hemoglobin at baseline. Physical Exam Vital Signs: Vital Signs: Last Vital Signs Temp 98.4 F 10/01/23 11:21 Pulse 58 10/01/23 11:21 Resp 18 10/01/23 11:21 BP 124/73 10/01/23 11:21 Pulse Ox 97 10/01/23 11:21 O2 Del Method Room Air 10/01/23 11:21 Oxygen Flow Rate 4 09/27/23 20:17 BMI result Body Mass Index 34.0 Const: Other: General awake alert x3 no acute distress Neck supple, no JVD Regular rate and rhythm, S1-S2 heard Regular breath sounds bilaterally, no wheezing or crackles appreciated Abdomen soft non tender, no guarding, no rigidity Psych: Normal mood No pedal edema Neuro loss of right nasolabial fold/right hemiparesis/expressive aphasia DS: Data Data Completed and Pending Labs on day of discharge: Preliminary micro results at discharge 09/27/23 23:57 Blood Culture - Preliminary Blood - Venous No growth after 48 hours. 09/27/23 22:50 Blood Culture - Preliminary Blood - Venous No growth after 48 hours. Discharge Plan Discharge Anticipated Discharge Date/Time: 10/01/23 15:21 Patient Disposition: Xfer SNF Discharge Diagnosis: Acute toxic metabolic encephalopathy Acute lactic acidosis [facility] Week Gemini Kent MD [Primary Care Provider] - 1 Week Discharge Medications: New divalproex [Depakote ER] 250 mg tablet extended release 24 hr 250 mg PO BEDTIME Qty: 90 0RF Continued pyridoxine (vitamin B6) [Vitamin B-6] 100 mg tablet 100 mg PO BID Qty: 60 6RF divalproex [Depakote ER] 500 mg tablet extended release 24 hr 500 mg PO BID Qty: 60 6RF atorvastatin 80 mg tablet 80 mg PO BEDTIME Eliquis 5 mg tablet 5 mg PO BID methyl salicylate-menthol 15-10 % Cream 1 appl TOPICAL 5XD PRN (Reason: Muscle Pain) aspirin 81 mg Tablet,Delayed Release (Dr/Ec) 81 mg PO Q2D clonazepam 1 mg tablet 1 mg PO Q20M PRN (Reason: Seizure Activity) Rx Instructions: [facility]: administer before bedtime acetaminophen 500 mg capsule 1,000 mg PO Q4H PRN (Reason: fever or pain) sennosides-docusate sodium [Senna with Docusate Sodium] 8.6-50 mg Tablet 1 tab PO BID PRN (Reason: Constipation) mirtazapine 30 mg Tablet 15 mg PO BEDTIME carvedilol 12.5 mg tablet 12.5 mg PO BIDWM Rx Instructions: must administer with a meal/food levothyroxine [Synthroid] 25 mcg tablet 25 mcg PO DAILY@0600 Entresto 49-51 mg tablet 1 tab PO BID Qty: 60 5RF Changed bumetanide 1 mg tablet 0.5 mg PO DAILY Qty: 30 0RF amiodarone 200 mg tablet 200 mg PO DAILY Qty: 60 0RF levetiracetam 500 mg tablet 500 mg PO BID Qty: 120 0RF Rx Instructions: Take every morning 30 minutes before breakfast with a full glass of water Diet: Low fat, low cholesterol Activity on Discharge: As tolerated Stand Alone Forms: Patient Portal Discharge page Print Language: Sinhala Care Plan Goals: Dose of amiodarone reduced to 200 mg daily Dose of Bumex reduced to 0.5 mg daily Increase dose of Depakote to 750 mg at bedtime/take Keppra 500 mg 1 tablet twice daily Continue all home medications as before FOLLOW TSH IN 6 WEEKS. Health Concerns: Seizure disorder EF 25-30% status post AICD Atrial fibrillation continue Eliquis Plan of Treatment: Outpatient follow-up with primary care physician call for appointment Outpatient follow-up with Neurology call for appointment Assessment: As above
--- NOTE | 2023-10-01 15:52 | MHC.CM.PN ---
[facility] tomorrow at 11AM, via [facility].
--- NOTE | 2023-10-01 15:55 | MHC.CM.PN ---
Patient is aware of and in agreement with the dc plan; CM is unable to reach at listed # (wrings a busy tone immediately). CM will follow.
[2023-10-01] MEDS: Divalproex Sodium ER 250 MG TAB.ER.24H 750 MG PO (20:48)
[2023-10-01] MEDS: Mirtazapine 15 MG TABLET PO (20:48)
[2023-10-01] MEDS: Atorvastatin Calcium 80 MG TABLET PO (20:49)
[2023-10-02] VITALS: BP 134/60; PULSE 52; RESP 18; TEMP 36.4; O2SAT 100
[2023-10-02] MEDS: 0.9 % Sodium Chloride Flush 3 ML SYRINGE IVFLUSH ×2 (01:40→08:29)
[2023-10-02 04:00] VITALS: BP 128/69; PULSE 52; RESP 18; TEMP 36.4; O2SAT 100
[2023-10-02] MEDS: Levothyroxine Sodium 25 MCG TABLET PO (06:50)
[2023-10-02 08:00] VITALS: BP 157/72; PULSE 58; RESP 16; TEMP 36.6; O2SAT 94
[2023-10-02] MEDS: Sacubitril/Valsartan 49/51 1 TAB TABLET PO (08:28)
[2023-10-02] MEDS: Pyridoxine HCl (Vitamin B6) 50 MG TABLET 100 MG PO (08:28)
[2023-10-02] MEDS: Amiodarone HCL 200 MG TABLET PO (08:28)
[2023-10-02] MEDS: Aspirin Enteric Coated 81 MG TABLET.DR PO (08:28)
[2023-10-02] MEDS: Apixaban 5 MG TABLET PO (08:28)
[2023-10-02] MEDS: levETIRAcetam 500 MG TABLET PO (08:28)
[2023-10-02] MEDS: Divalproex Sodium ER 500 MG TAB.ER.24H PO (08:28)
[2023-10-02] MEDS: carvediloL 12.5 MG TABLET PO (08:28)
--- NOTE | 2023-10-02 10:54 | P.DS_ITS ---
DS: Providers Provider Date of Service: 10/02/23 Date of admission: 09/28/23 03:58 Primary care physician: Gemini Fuentes MD Consults: 09/28/23 10:38 Consult to Neurology Routine Consulting Provider: [facility] Reason for consultation: break thru seizure /readmission Has provider been notified: No DS: Diagnosis Discharge Diagnosis (1) Breakthrough seizure: Status: Acute (2) Toxic metabolic encephalopathy: Status: Acute (3) PAF (paroxysmal atrial fibrillation): Status: Acute (4) Chronic systolic heart failure: Status: Acute DS: Summary Hospital Course Hospital Course: History of presenting illness: Date of Service: 09/28/23 Attending physician on admission: Chief Complaint: Seizures Donny Mora is 63 years old with past medical history significant for seizure disorder, CVA with right-sided hemiparesis, nonischemic cardiomyopathy with combined systolic and diastolic dysfunction (EF 25-50%) s/p AICD, atrial fibrillation on Eliquis, also on CPAP and essential hypertension was brought to the emergency department via EMS from home as he was noted to be lethargic by family. He was discharged yesterday from the hospitalist service for break thru seizures. Patient was placed on a non-rebreather mask by EMS as he was found to have an oxygen saturation 80%. Recent seizure activity has been not been reported by ED. his Keppra was recently increased to 1 g b.i.d. he is also on valproic acid. EEG showed no seizure activity. On evaluation, the patient was too confused to provide his own HPI. In the ED today, he was found to have stable vital signs. Blood workup showed no leukocytosis. Hemoglobin is 11.1 which is at baseline. Platelets level is 168. INR is 1.4. There are no electrolyte imbalances. Creatinine increased from 1.25 to 1.50. Lactic acid was initially elevated, 2.9 but now is normal. LFTs are normal. Troponin is negative x2. TSH is undetectable avoid T4 is 1.73. Ammonia is normal. Urinalysis showed no evidence of UTI. Urine drug screen is negative. CXR is negative. Head CT scan showed no acute intracranial abnormality. ECG showed NSR with left bundle branch block (old). ED tx: NS 1 L bolus, Keppra 1000 mg PO X1. Hospital course: 63-year-old male with pertinent history of seizure disorder, CVA with right- sided hemiparesis, nonischemic cardiomyopathy with combined systolic and diastolic dysfunction EF 25-30% status post AICD, AFib on Eliquis, FRAN on CPAP, hypertension who was brought to the emergency department by ambulance for evaluation of lethargy,pt. was hospitalized from 09/25/2023 until 09/27/23 for breakthrough seizures, in the hospital patient noted to have no recurrent seizures, EEG was unremarkable, Depakote level was within normal range, dose of Keppra was increased to 1000 mg b.i.d. from baseline dose of 500 mg b.i.d. and patient was discharged home. Patient was sent back to [place] emergency room same evening due to lethargy , in the emergency room patient noted to be lethargic but was able to answer questions appropriately he complained of weakness and no other complaints, paramedics reported that his O2 saturation was 80% on room air, he was transported on a non-rebreather, in ED his O2 sats were 96% on room air, CT head repeat showed no acute abnormality Labs were unremarkable with stable H and H, renal function and electrolytes, except for lactic acid elevated at 2.9 improved to 1.1 with IV fluids, troponin 23.2 repeat 20.2, urinalysis unremarkable, TSH less than 0.01 with free T4 1.73 unchanged from prior TSH Patient re admitted to [facility] with a diagnosis of lethargy/acute encephalopathy. Acute Toxic metabolic encephalopathy/lethargy patient admitted to telemetry unit, no acute etiology was found, had no seizure-like activity, tele monitor showed no arrhythmias, CT head showed no acute abnormality, had recent negative EEG,UA unremarkable, chest x-ray normal, VBG showed no CO2 retention, normal valproic acid level 62.3 pt. has expressive aphasia due to prior stroke he does understand but can not express himself clearly, now at baseline as per family, dose of Keppra was increased to 1000 mg twice daily during last admission but patient has history of behavioral issues with high dose of Keppra therefore dose of Keppra reduced back to 500 mg b.i.d. Discussed seizure management with patient's primary neurologist Dr. Irwin she recommended to increase dose of valproic acid to 750 mg at bedtime and continue daytime dose of 500 mg, to help with behavior and seizures, patient remained hemodynamically stable at baseline mentation, with no recurrent seizures, he was evaluated by Physical therapy and they recommend short-term rehab due to unsteady gait. Noted to have acute lactic acidosis question due to dehydration versus seizure resolved with IV fluids. Essential hypertension. stable blood pressures recommend to continue carvedilol, and Entresto . FRAN. CPAP. Hx of hypothyroidism? Subclinical hyperthyroidism? TSH is basically undetectable with normal free T4,dose of Synthroid reduced to 25 mcg recommend to repeat TSH in 6 weeks Hyperlipidemia. Continue statin. History of CVA with residual right-sided hemiparesis and expressive aphasia, continue aspirin and statin. 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 Acute on chronic systolic and diastolic congestive heart failure. EF 25-30%. S/p AICD, no acute exacerbation noted continued on Entresto, Coreg and dose of Bumex reduced to 0.5 mg due to soft blood pressures. Chronic anemia. Hemoglobin at baseline. Time Attestation Discharge Coordination Time (in mins): 35 Quality: Safe Use of Opioids Does Pt have an Active Cancer Diagnosis on the Problem List?: No Quality: Stroke Does the patient have a stroke diagnosis?: No Physical Exam Vital Signs: Vital Signs: Last Vital Signs Temp 97.8 F 10/02/23 08:00 Pulse 58 10/02/23 08:00 Resp 16 10/02/23 08:00 BP 157/72 H 10/02/23 08:00 Pulse Ox 94 10/02/23 08:00 O2 Del Method Room Air 10/02/23 08:00 Oxygen Flow Rate 4 09/27/23 20:17 BMI result Body Mass Index 34.0 Gen: in no acute distress HEENT: sclera anicteric, moist mucus membranes Neck: supple Lungs: clear to auscultation bilaterally Heart: regular rate and rhythm, no murmurs Abd: soft, non-tender, non-distended Ext: no edema Skin: warm/well-perfused Neuro: alert and oriented x3, chronic R facial droop/hemiparesis Psych: appropriate affect DS: Data Data Completed and Pending Completed studies during hospitalization [Text1]: Laboratory Results WBC 6.8 X10*3/uL (4.8-10.8) 06/02/24 05:51 RBC 2.93 X10*6/uL (4.60-5.80) L 09/28/23 05:51 Hgb 10.2 g/dl (14.0-18.0) L 09/28/23 05:51 Hct 30.2 % (42.0-52.0) L 09/28/23 05:51 MCV 103.1 fL (80.0-98.0) H 09/28/23 05:51 MCH 34.8 pg (27.0-33.0) H 09/28/23 05:51 MCHC 33.8 g/dl (31.0-36.0) 09/28/23 05:51 RDW 14.1 % (11.0-16.0) 09/28/23 05:51 Plt Count 124 X10*3/uL (160-400) L D 09/28/23 05:51 MPV 10.4 fL (9.4-12.4) 09/28/23 05:51 Immature Gran % (Auto) 0.3 % (0.0-0.4) 09/28/23 05:51 Neut % (Auto) 47.7 % (45-73) 09/28/23 05:51 Lymph % (Auto) 35.5 % (20-40) 09/28/23 05:51 [place] % (Auto) 15.5 % (2-11) H 09/28/23 05:51 Eos % (Auto) 0.7 % (0-4) 09/28/23 05:51 Baso % (Auto) 0.3 % (0-2) 09/28/23 05:51 Lymph # (Auto) 2.4 X10*3/uL (1.2-4.9) 09/28/23 05:51 [place] # (Auto) 1.1 X10*3/uL (0.1-1.2) 09/28/23 05:51 Eos # (Auto) 0.1 X10*3/uL (0.0-0.4) 09/28/23 05:51 Baso # (Auto) 0.0 X10*3/uL (0.0-0.2) 09/28/23 05:51 Abs Immat Gran (auto) 0.02 X10*3/uL (0.00-0.03) 09/28/23 05:51 Absolute Neuts (auto) 3.2 x10*3/uL (2.0-8.3) 09/28/23 05:51 Absolute Nucleated RBC 0.000 X10*3/uL (0.0-0.012) 09/28/23 05:51 Nucleated RBC % (auto) 0.0 /100WBC (0.0-0.2) 09/28/23 05:51 VBG pH 7.43 (7.32-7.43) 09/28/23 05:54 VBG pCO2 48 mmHg 09/28/23 05:54 VBG pO2 38 mmHg 09/28/23 05:54 VBG HCO3 32 mmol/L (22-26) H 09/28/23 05:54 VBG O2 Saturation 60.0 % 09/28/23 05:54 VBG Base Excess 7.0 mmol/L 09/28/23 05:54 Sodium 145 mmol/L (135-145) 09/28/23 05:51 Potassium 3.5 mmol/L (3.3-5.1) 09/28/23 05:51 Chloride 109 mmol/L (96-108) H 09/28/23 05:51 Carbon Dioxide 28 mmol/L (22-29) 09/28/23 05:51 Anion Gap 12 (12-20) 09/28/23 05:51 BUN 20 mg/dL (9-16) H 09/28/23 05:51 Creatinine 1.47 mg/dL (0.5-1.4) H 09/28/23 05:51 Estim Creat Clear Calc 59.6 09/28/23 05:51 Estimated GFR 48 09/28/23 05:51 Random Glucose 94 mg/dL (60-115) 09/28/23 05:51 Lactic Acid 2.9 mmol/L (0.5-2.0) H* 09/27/23 20:29 Lactic Acid F/U @ 2Hr 2.5 mmol/L (0.5-2.0) H* 09/27/23 23:57 Lactic Acid F/U @ 4Hr 1.1 mmol/L (0.5-2.0) 09/28/23 03:01 Calcium 8.4 mg/dL (8.4-10.2) 09/28/23 05:51 Magnesium 1.6 mg/dL (1.6-2.6) 09/27/23 20:29 Total Bilirubin 0.7 mg/dL (0.0-1.0) 09/28/23 05:51 AST 23 U/L (5-37) 09/28/23 05:51 ALT 27 U/L (0-40) 09/28/23 05:51 Alkaline Phosphatase 81 U/L (39-117) 09/28/23 05:51 Ammonia 36 umol/L (13-55) 09/27/23 20:29 Troponin I High Sens 20.2 ng/L (<3.5-35.0) 09/27/23 23:57 Total Protein 5.3 g/dL (6.5-8.0) L 09/28/23 05:51 Albumin 2.9 g/dL (3.5-5.0) L 09/28/23 05:51 Lipase 16 U/L (8-78) 09/27/23 20:29 TSH < 0.01 uIU/mL (0.32-4.0) L 09/27/23 20:29 Free T4 1.73 ng/dL (0.71-1.85) 09/27/23 20:29 Urine Color Yellow 09/27/23 22:50 Urine Appearance Clear 09/27/23 22:50 Urine pH 6.0 (5.0-9.0) 09/27/23 22:50 Ur Specific [place] 1.020 (1.005-1.025) 09/27/23 22:50 Urine Protein Trace mg/dL (Neg-Trace) 09/27/23 22:50 Urine Glucose (UA) Negative mg/dL (Negative) 09/27/23 22:50 Urine Ketones Negative mg/dL (Negative) 09/27/23 22:50 Urine Blood Negative (Negative) 09/27/23 22:50 Urine Nitrite Negative (Negative) 09/27/23 22:50 Ur Leukocyte Esterase Trace (Negative) H 09/27/23 22:50 Urine RBC 0-2 /HPF (0-2) 09/27/23 22:50 Urine WBC 0-5 /HPF (0-5) 09/27/23 22:50 Ur Squamous Epith Cells 0-2 /HPF (0-2) 09/27/23 22:50 Urine Bacteria None Seen (None Seen) 09/27/23 22:50 Hyaline Casts 6-10 /LPF (0-2) 09/27/23 22:50 Urine Opiates Screen Not Detected (Not Detect) 09/27/23 22:50 Ur Buprenorphine Scrn Not Detected ng/mL (Not Detect) 09/27/23 22:50 Ur Oxycodone Screen Not Detected ng/mL (Not Detect) 09/27/23 22:50 Urine Methadone Screen Not Detected ng/mL (Not Detect) 09/27/23 22:50 Urine Fentanyl Screen Not Detected (Not Detect) 09/27/23 22:50 Ur Barbiturates Screen Not Detected (Not Detect) 09/27/23 22:50 Valproic Acid 62.3 mcg/mL (50.0-100.0) 09/28/23 03:01 Ur Phencyclidine Scrn Not Detected (Not Detect) 09/27/23 22:50 Ur Amphetamines Screen Not Detected (Not Detect) 09/27/23 22:50 U Benzodiazepines Scrn Not Detected (Not Detect) 09/27/23 22:50 Urine Cocaine Screen Not Detected (Not Detect) 09/27/23 22:50 U Marijuana (THC) Screen Not Detected (Not Detect) 09/27/23 22:50 Ethyl Alcohol < 10 mg/dL 09/27/23 20:29 Impressions Chest X-Ray 09/27/23 20:35 IMPRESSION: No acute pulmonary findings. Head CT 09/27/23 22:38 IMPRESSION: 1. No acute intracranial pathology. 2. Chronic encephalomalacia/gliosis in the left MCA territory with associated volume loss resulting in stable 0.6 cm leftward midline shift. Labs on day of discharge: Preliminary micro results at discharge 09/27/23 23:57 Blood Culture - Preliminary Blood - Venous No growth after 48 hours. 09/27/23 22:50 Blood Culture - Preliminary Blood - Venous No growth after 48 hours. Discharge Plan Discharge Anticipated Discharge Date/Time: 10/01/23 15:21 Patient Disposition: [facility] Discharge Diagnosis: Acute toxic metabolic encephalopathy Acute lactic acidosis [facility] Gemini Kent MD [Primary Care Provider] - 1 Week Discharge Medications: New divalproex [Depakote ER] 250 mg tablet extended release 24 hr 250 mg PO BEDTIME Qty: 90 0RF Continued pyridoxine (vitamin B6) [Vitamin B-6] 100 mg tablet 100 mg PO BID Qty: 60 6RF divalproex [Depakote ER] 500 mg tablet extended release 24 hr 500 mg PO BID Qty: 60 6RF atorvastatin 80 mg tablet 80 mg PO BEDTIME Eliquis 5 mg tablet 5 mg PO BID methyl salicylate-menthol 15-10 % Cream 1 appl TOPICAL 5XD PRN (Reason: Muscle Pain) aspirin 81 mg Tablet,Delayed Release (Dr/Ec) 81 mg PO Q2D clonazepam 1 mg tablet 1 mg PO Q20M PRN (Reason: Seizure Activity) Rx Instructions: [facility]: administer before bedtime acetaminophen 500 mg capsule 1,000 mg PO Q4H PRN (Reason: fever or pain) sennosides-docusate sodium [Senna with Docusate Sodium] 8.6-50 mg Tablet 1 tab PO BID PRN (Reason: Constipation) mirtazapine 30 mg Tablet 15 mg PO BEDTIME carvedilol 12.5 mg tablet 12.5 mg PO BIDWM Rx Instructions: must administer with a meal/food levothyroxine [Synthroid] 25 mcg tablet 25 mcg PO DAILY@0600 Entresto 49-51 mg tablet 1 tab PO BID Qty: 60 5RF Changed amiodarone 200 mg tablet 200 mg PO DAILY Qty: 60 0RF levetiracetam 500 mg tablet 500 mg PO BID Qty: 120 0RF Rx Instructions: Take every morning 30 minutes before breakfast with a full glass of water bumetanide 1 mg tablet 0.5 mg PO DAILY Qty: 30 0RF Discharge Orders: Discharge Order (Routine); Ordered 10/02/23 Ordered By: Janet Smith Diet: Low fat, low cholesterol Activity on Discharge: As tolerated Stand Alone Forms: Patient Portal Discharge page Print Language: Danish Care Plan Goals: Dose of amiodarone reduced to 200 mg daily Dose of Bumex reduced to 0.5 mg daily Increase dose of Depakote to 750 mg at bedtime/take Keppra 500 mg 1 tablet twice daily Continue all home medications as before FOLLOW TSH IN 6 WEEKS. Health Concerns: Seizure disorder EF 25-30% status post AICD Atrial fibrillation continue Eliquis Plan of Treatment: Outpatient follow-up with primary care physician call for appointment Outpatient follow-up with Neurology call for appointment Assessment: As above
[2023-10-04 01:23] LABS: Levetiracetam Keppra 29.8 mcg/mL (6.0-46.0)
== END 2023-10-02 11:30 | disposition skilled nursing facility (03) | DRG 100 ==
LOC: HO.ED 09-28 01:57 → HO.EDOVER 09-28 04:12 → HO.IMC 09-28 17:50
PROVIDERS: Admitting Provider Internal Medicine; Emergency Provider Emergency Medicine Emergency Medical Services; PCP Internal Medicine; Visit Provider Family Medicine
DX: G40.909 Epilepsy, unspecified, not intractable, without status epilepticus (principal); I50.43 Acute on chronic combined systolic (congestive) and diastolic (congestive) heart failure; I69.351 Hemiplegia and hemiparesis following cerebral infarction affecting right dominant side; E87.21 Acute metabolic acidosis; I42.8 Other cardiomyopathies; D64.9 Anemia, unspecified; I44.7 Left bundle-branch block, unspecified; I11.0 Hypertensive heart disease with heart failure; I48.0 Paroxysmal atrial fibrillation; Z95.810 Presence of automatic (implantable) cardiac defibrillator; G47.33 Obstructive sleep apnea (adult) (pediatric); Z79.82 Long term (current) use of aspirin; Z79.01 Long term (current) use of anticoagulants; Z79.890 Hormone replacement therapy; Z79.899 Other long term (current) drug therapy
CPT/HCPCS: 36415; 70450; 71045; 80053; 80164; 80177; 80307; 81001; 81003; 82140; 82803; 83605; 83690; 83735; 84439; 84443; 84484; 85025; 87040; 93005; 97162; 99285

== ENCOUNTER → 2023-09-27 20:20 | Outpatient (BNV) | payer MEDICARE, SELFPAY | PROVIDERS: Admitting Provider Internal Medicine; Emergency Provider Emergency Medicine Emergency Medical Services; Visit Provider Internal Medicine | DX: I44.7 Left bundle-branch block, unspecified (principal); R94.31 Abnormal electrocardiogram [ECG] [EKG] | CPT/HCPCS: 93010 ==

== ENCOUNTER → 2023-09-28 03:58 | Outpatient (BNV) | payer OTHER, MEDICAID, SELFPAY | PROVIDERS: Admitting Provider Internal Medicine; Emergency Provider Emergency Medicine Emergency Medical Services; Visit Provider Internal Medicine | DX: R56.9 Unspecified convulsions (principal) | CPT/HCPCS: 99223; 99232; 99233; 99239; 99499 ==

== ENCOUNTER 2023-10-17 13:56 | Emergency (ER) | payer OTHER, MEDICARE, SELFPAY ==
--- NOTE | ~2023-10-17 | XR_ITS ---
EXAMINATION: XR CHEST CLINICAL INFORMATION: Weakness COMPARISON: 09/27/2023 TECHNIQUE: Frontal view of the chest was obtained. FINDINGS: There is pacemaker battery overlies the left upper lung with single lead over the right ventricle. Cardiac silhouette is mildly prominent. There is no vascular congestion, consolidation or pleural effusion XR/XR chest 1V IMPRESSION: No active cardiopulmonary disease
[2023-10-17 14:11] VITALS: BP 102/59; BP 77/53; PULSE 55; PULSE 65; RESP 17; TEMP 36.1; O2SAT 100; O2SAT 97; BMI 31.8
--- NOTE | 2023-10-17 14:16 | ECG_ITS ---
Test Reason : BRADYCARDIA Blood Pressure : / mmHG Vent. Rate : 063 BPM Atrial Rate : 063 BPM P-R Int : 220 ms QRS Dur : 150 ms QT Int : 506 ms P-R-T Axes : 062 -43 134 degrees QTc Int : 517 ms Sinus rhythm with 1st degree A-V block Left axis deviation Left bundle branch block Abnormal ECG When compared with ECG of 27-SEP-2023 20:20, ID interval has increased Referred By: Generic ED Physician Electronically Signed By:Ovidio Bobo
[2023-10-17 14:28] VITALS: BP 99/60; PULSE 80; RESP 19; TEMP 36.7; O2SAT 93
[2023-10-17] MEDS: 0.9 % Sodium Chloride 1,000 ML 100 ML IVCONT (14:50)
--- NOTE | 2023-10-17 15:00 | MHC.CM.ED ---
Patient brought to ER due to dizziness. Patient was [place] [facility] [place] [facility] [place] on 10/01. Family has reported to Dr Ferrari that there is no air conditioning in patient's room. Referral made in [facility] to verify this info. Continue to monitor for d/c needs.
--- NOTE | 2023-10-17 15:12 | ED.GENADULT ---
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 Mode of arrival: EMS Limitations: other (poor historian) Related Data Home Medications ?Medication ?Instructions ?Recorded ?Confirmed apixaban 5 mg tablet (Eliquis) 5 mg PO BID 07/02/21 09/28/23 atorvastatin 80 mg tablet 80 mg PO BEDTIME 07/02/21 09/28/23 acetaminophen 500 mg capsule 1,000 mg PO Q4H PRN fever or pain 06/20/23 09/28/23 aspirin 81 mg tablet,delayed 81 mg PO Q2D 06/20/23 09/28/23 release clonazepam 1 mg tablet 1 mg PO Q20M PRN Seizure Activity 06/20/23 09/28/23 methyl salicylate 15 %-menthol 10 1 appl topical 5XD PRN Muscle Pain 06/20/23 09/28/23 % topical cream mirtazapine 30 mg tablet 15 mg PO BEDTIME 09/25/23 09/28/23 sennosides 8.6 mg-docusate sodium 1 tab PO BID PRN Constipation 09/25/23 09/28/23 50 mg tablet (Senna with Docusate Sodium) carvedilol 12.5 mg tablet 12.5 mg PO BIDWM 09/28/23 09/28/23 levothyroxine 25 mcg tablet 25 mcg PO DAILY@0600 09/28/23 09/28/23 (Synthroid) Previous Rx's ?Medication ?Instructions ?Recorded divalproex 500 mg tablet,extended 500 mg PO BID #60 tabs 06/03/23 release 24 hr (Depakote ER) pyridoxine (vitamin B6) 100 mg 100 mg PO BID #60 tabs 06/03/23 tablet (Vitamin B-6) sacubitril 49 mg-valsartan 51 mg 1 tab PO BID #60 tabs 08/19/23 tablet (Entresto) amiodarone 200 mg tablet 200 mg PO DAILY #60 tabs 10/01/23 bumetanide 1 mg tablet 0.5 mg (1/2 x 1 mg) PO DAILY #30 10/01/23 tabs divalproex 250 mg tablet,extended 250 mg PO BEDTIME #90 tabs 10/01/23 release 24 hr (Depakote ER) levetiracetam 500 mg tablet 500 mg PO BID #120 tabs 10/01/23 Allergies Allergy/AdvReac Type Severity Reaction Status Date / Time No Known Allergies Allergy Verified 10/17/23 14:15 [No Known Allergies*] FOR[facility] Past Medical History Medical History (Updated 10/05/23 @ 00:02 by Background Daemon) Pancytopenia FRAN on CPAP PAF (paroxysmal atrial fibrillation) Chronic heart failure DOT (acute kidney injury) Behavior disturbance Seizure as late effect of cerebrovascular accident (CVA) Restrictive lung disease Uncontrolled hypertension Acute decompensated heart failure Cerebrovascular accident CVA (cerebral vascular accident) Atrial fibrillation with rapid ventricular response Persistent atrial fibrillation Chronic systolic heart failure Gallstones CHF (congestive heart failure) Embolism of kidney CKD (chronic kidney disease), stage II Cardiac defibrillator in place NSVT (nonsustained ventricular tachycardia) NICM (nonischemic cardiomyopathy) Renal infarct Hypertension Surgical History (Updated 10/05/23 @ 00:02 by Background Daemon) History of cardiac defibrillator placement Family History Family History Mother No problems noted. Father No problems noted. 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 Tobacco Use Status: Tobacco use Unknown e-Cigarette/Vaping Use: Never Used Second Hand Smoke Exposure: No Advance Directives: Yes Advance Directives on File: Yes Advance Directives Date on File: 10/18/20 service: Yes Current occupational status: unemployed Cognitive needs: Yes Hearing needs: No Vision needs: No Physical Exam ED Vital Signs: Vital Signs - 24 hr 10/17/23 14:11 10/17/23 14:28 Temperature 97 F 98.0 F Pulse Rate 65 80 Respiratory Rate 17 19 Blood Pressure 102/59 L 99/60 Pulse Oximetry 97 93 Oxygen Delivery Method Room Air Room Air BMI result Body Mass Index 31.8 Medications Administered Generic Name Dose Route Start Last Admin Trade Name Freq PRN Reason Stop Dose Admin Sodium Chloride 1,000 mls @ 100 mls/hr 10/17/23 14:45 10/17/23 14:50 Ns IVCONT 100 mls/hr .Q10H NENA Administration Discharge Plan Discharge Prescriptions: No Action pyridoxine (vitamin B6) [Vitamin B-6] 100 mg tablet 100 mg PO BID Qty: 60 6RF divalproex [Depakote ER] 500 mg tablet extended release 24 hr 500 mg PO BID Qty: 60 6RF atorvastatin 80 mg tablet 80 mg PO BEDTIME Eliquis 5 mg tablet 5 mg PO BID methyl salicylate-menthol 15-10 % Cream 1 appl TOPICAL 5XD PRN (Reason: Muscle Pain) aspirin 81 mg Tablet,Delayed Release (Dr/Ec) 81 mg PO Q2D clonazepam 1 mg tablet 1 mg PO Q20M PRN (Reason: Seizure Activity) Rx Instructions: [facility]: administer before bedtime acetaminophen 500 mg capsule 1,000 mg PO Q4H PRN (Reason: fever or pain) sennosides-docusate sodium [Senna with Docusate Sodium] 8.6-50 mg Tablet 1 tab PO BID PRN (Reason: Constipation) mirtazapine 30 mg Tablet 15 mg PO BEDTIME carvedilol 12.5 mg tablet 12.5 mg PO BIDWM Rx Instructions: must administer with a meal/food levothyroxine [Synthroid] 25 mcg tablet 25 mcg PO DAILY@0600 amiodarone 200 mg tablet 200 mg PO DAILY Qty: 60 0RF levetiracetam 500 mg tablet 500 mg PO BID Qty: 120 0RF Rx Instructions: Take every morning 30 minutes before breakfast with a full glass of water bumetanide 1 mg tablet 0.5 mg PO DAILY Qty: 30 0RF divalproex [Depakote ER] 250 mg tablet extended release 24 hr 250 mg PO BEDTIME Qty: 90 0RF Entresto 49-51 mg tablet 1 tab PO BID Qty: 60 5RF Print Language: Puerto Rican
--- NOTE | 2023-10-17 15:25 | ED_ITS ---
HPI - Weakness General Chief complaint: General Medical Stated complaint: from [facility], lethargic, hypotensive Time Seen by Provider: 10/17/23 14:30 Source: patient, family, EMS, old records reviewed and president and cmo Mode of arrival: EMS Limitations: other (poor historian) History of Present Illness ED Provider: MARGI HPI Narrative: 63 yo male with PMH of seizures on keppra and depakote, CVA with R sided hemiparesis, nonischemic cardiomyopathy EF 25-50% has AICD, afib on eliquis, CPAP, HTN just admitted and DC here on 10/01 to [facility] after repeat admissions for recurrent seizures and then admitted again for encephalopathy 09/28 but no etiology found he has been at [facility] with poor appetite and family notes he doesn't drink water either and he has been weak. His bumex was increased from 0.5mg daily to 1mg daily on 10/08 but his partner doesn't now why. She notes his legs are not swollen at all anymore which usually he has some baseline edema. Today his room was very hot he didn't drink or eat much. He went to get up and felt very weak and dizzy no CP/SOB. No recent GIB symptoms and he felt like he was going to pass out. His BP was 70s/50s. His HR was in the 50s. No falls or syncope / LOC. EMS found him with BP 72/53 and HR 55 so they gave him 750mL of IVF and 1mg atropine. His HR on arrival here has been in 80s and his BP in 90s he still feels weak and dizzy when he moves. MD Complaint: generalized weakness (near syncope, low BP, dizziness) Onset (ago): hour(s) (1) Duration: improved Location: generalized Migration: none Severity: moderate Quality: dull Relieving factors: rest and other (IVF) Exacerbating factors: movement and exertion Context: recent illness and other (partner notes he hasn't been eating or drinking much and his room AC is broken so he has been very hot at [facility] - EMS confirms the AC is broken in the room) Associated symptoms: loss of appetite Related Data Home Medications ?Medication ?Instructions ?Recorded ?Confirmed apixaban 5 mg tablet (Eliquis) 5 mg PO BID 07/02/21 09/28/23 atorvastatin 80 mg tablet 80 mg PO BEDTIME 07/02/21 09/28/23 acetaminophen 500 mg capsule 1,000 mg PO Q4H PRN fever or pain 06/20/23 09/28/23 aspirin 81 mg tablet,delayed 81 mg PO Q2D 06/20/23 09/28/23 release clonazepam 1 mg tablet 1 mg PO Q20M PRN Seizure Activity 06/20/23 09/28/23 methyl salicylate 15 %-menthol 10 1 appl topical 5XD PRN Muscle Pain 06/20/23 09/28/23 % topical cream mirtazapine 30 mg tablet 15 mg PO BEDTIME 09/25/23 09/28/23 sennosides 8.6 mg-docusate sodium 1 tab PO BID PRN Constipation 09/25/23 09/28/23 50 mg tablet (Senna with Docusate Sodium) carvedilol 12.5 mg tablet 12.5 mg PO BIDWM 09/28/23 09/28/23 levothyroxine 25 mcg tablet 25 mcg PO DAILY@0600 09/28/23 09/28/23 (Synthroid) Previous Rx's ?Medication ?Instructions ?Recorded divalproex 500 mg tablet,extended 500 mg PO BID #60 tabs 06/03/23 release 24 hr (Depakote ER) pyridoxine (vitamin B6) 100 mg 100 mg PO BID #60 tabs 06/03/23 tablet (Vitamin B-6) sacubitril 49 mg-valsartan 51 mg 1 tab PO BID #60 tabs 08/19/23 tablet (Entresto) amiodarone 200 mg tablet 200 mg PO DAILY #60 tabs 10/01/23 bumetanide 1 mg tablet 0.5 mg (1/2 x 1 mg) PO DAILY #30 10/01/23 tabs divalproex 250 mg tablet,extended 250 mg PO BEDTIME #90 tabs 10/01/23 release 24 hr (Depakote ER) levetiracetam 500 mg tablet 500 mg PO BID #120 tabs 10/01/23 Allergies Allergy/AdvReac Type Severity Reaction Status Date / Time No Known Allergies Allergy Verified 10/17/23 14:15 [No Known Allergies*] Review of Systems Review of Systems: Constitutional : No Fever, No Chills, pos Fatigue ENT/Mouth : No sore throat, No Rhinorrhea Eyes: No Eye Pain, No Swelling, No Redness Cardiovascular : No Chest Pain, No SOB, No Dyspnea on Exertion Respiratory : No Cough, No Sputum Gastrointestinal : No Nausea, No Vomiting, No Diarrhea, No abdominal Pain Genitourinary : No Dysuria, No Urinary Frequency, No Hematuria, Musculoskeletal : No joint pain, No Myalgias, No Joint Swelling Skin : No Skin Lesions, No rash Neuro : pos Weakness, No Numbness, pos Dizziness, no Headache All other systems reviewed and are negative [facility] Past Medical History Attestation statement: The following information was validated with the patient. Source: old records reviewed Medical History Pancytopenia FRAN on CPAP PAF (paroxysmal atrial fibrillation) Chronic heart failure DOT (acute kidney injury) Behavior disturbance Seizure as late effect of cerebrovascular accident (CVA) Restrictive lung disease Uncontrolled hypertension Acute decompensated heart failure Cerebrovascular accident CVA (cerebral vascular accident) Atrial fibrillation with rapid ventricular response Persistent atrial fibrillation Chronic systolic heart failure Gallstones CHF (congestive heart failure) Embolism of kidney CKD (chronic kidney disease), stage II Cardiac defibrillator in place NSVT (nonsustained ventricular tachycardia) NICM (nonischemic cardiomyopathy) Renal infarct Hypertension Surgical History History of cardiac defibrillator placement Family History Family History Mother No problems noted. Father No problems noted. 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 Oriented to person and place. No acute distress. Eyes: Pupils equal, round and reactive to light. ENT: Pharynx dry MM Neck: Normal inspection. Neck supple. CVS: Normal heart rate and rhythm. Pulses normal. Respiratory: No respiratory distress. Breath sounds normal. Abdomen: Soft and nontender. Skin: Skin warm and dry. Normal skin color. Normal skin turgor. Extremities: No lower extremity edema which is unusual. No calf ttp Neuro: Oriented X 2. baseline chronic R sided hemiparesis No sensory deficit. Course Course Course Narrative: signed out to Dr. Nuñez Medications Administered Generic Name Dose Route Start Last Admin Trade Name Freq PRN Reason Stop Dose Admin Sodium Chloride 1,000 mls @ 100 mls/hr 10/17/23 14:45 10/17/23 14:50 Ns IVCONT 100 mls/hr .Q10H NENA Administration Medical Decision Making Medical Decision Making [facility] Narrative: 63 yo male with PMH of seizures on keppra and depakote, CVA with R sided hemiparesis, nonischemic cardiomyopathy EF 25-50% has AICD, afib on eliquis, CPAP, HTN here with c/o near syncope and low BP with recent poor PO intake and increase in diuretic as well as no AC in his room at SNF. At this time he has no CP/SOB/GIB symptoms. He has no pain he was given atropine though his HR was 55 and I think his primary issue was orthostasis and low BP. He has a very low EF so I am going to give gentle fluids at this time. Will obtain labs, CXR, UA, EKG and will monitor closely. Differential Diagnosis Differential Diagnoses: The differential diagnosis associated with the presentation includes anemia, dehydration, orthostatics, heat exposure, FTT Admission/Observation Consideration of admission/observation: Escalation of care including admission/observation considered Lab Data [facility] Lab Attestation statement: I reviewed the patient's lab results. Independent Interpretation I performed an independent interpretation of an: EKG and Plain X-Ray Interpretation: Rate: 63 Rhythm: NSR with 1st degree AVB Hooper: left Normal P waves. Normal BRUNO. LBBB ST T wave : nonspecific ST T wave changes I and aVL no DANIELLA qTC: 517 prior studies: no sig change The study has been interpreted contemporaneously by me. . Radiology Impression Discussion of test interpretation with radiology: I have reviewed the radiologist's reading. Independent Historian Clinical information obtained from an independent historian. History obtained from or confirmed by: Spouse and EMS External Record Review External record reviewed: Inpatient record Discharge Plan Discharge Clinical Impression: Near syncope Patient Disposition: Still a Patient Prescriptions: No Action pyridoxine (vitamin B6) [Vitamin B-6] 100 mg tablet 100 mg PO BID Qty: 60 6RF divalproex [Depakote ER] 500 mg tablet extended release 24 hr 500 mg PO BID Qty: 60 6RF atorvastatin 80 mg tablet 80 mg PO BEDTIME Eliquis 5 mg tablet 5 mg PO BID methyl salicylate-menthol 15-10 % Cream 1 appl TOPICAL 5XD PRN (Reason: Muscle Pain) aspirin 81 mg Tablet,Delayed Release (Dr/Ec) 81 mg PO Q2D clonazepam 1 mg tablet 1 mg PO Q20M PRN (Reason: Seizure Activity) Rx Instructions: per [facility]: administer before bedtime acetaminophen 500 mg capsule 1,000 mg PO Q4H PRN (Reason: fever or pain) sennosides-docusate sodium [Senna with Docusate Sodium] 8.6-50 mg Tablet 1 tab PO BID PRN (Reason: Constipation) mirtazapine 30 mg Tablet 15 mg PO BEDTIME carvedilol 12.5 mg tablet 12.5 mg PO BIDWM Rx Instructions: must administer with a meal/food levothyroxine [Synthroid] 25 mcg tablet 25 mcg PO DAILY@0600 amiodarone 200 mg tablet 200 mg PO DAILY Qty: 60 0RF levetiracetam 500 mg tablet 500 mg PO BID Qty: 120 0RF Rx Instructions: Take every morning 30 minutes before breakfast with a full glass of water bumetanide 1 mg tablet 0.5 mg PO DAILY Qty: 30 0RF divalproex [Depakote ER] 250 mg tablet extended release 24 hr 250 mg PO BEDTIME Qty: 90 0RF Entresto 49-51 mg tablet 1 tab PO BID Qty: 60 5RF Print Language: Hebrew
[2023-10-17 15:43] LABS: MANUAL DIFF FLAG NO
[2023-10-17 15:46] LABS: Basophils Percent Auto 0.3 % (0-2); Eosinophils Percent Auto 0.6 % (0-4); Hemoglobin 10.6 g/dl (14.0-18.0); Imm Gran Abs Auto 0.01 X10*3/uL (0.00-0.03); Imm Gran Pct Auto 0.3 % (0.0-0.4); Lymphocytes Absolute Auto 1.3 X10*3/uL (1.2-4.9); Lymphocytes Percent Auto 37.1 % (20-40); Mean Corpuscular HGB Conc 34.2 g/dl (31.0-36.0); Mean Corpuscular Hemoglobin 35.9 pg (27.0-33.0); Mean Corpuscular Volume 105.1 fL (80.0-98.0); Mean Platelet Volume 11.1 fL (9.4-12.4); Monocytes Absolute Auto 0.4 X10*3/uL (0.1-1.2); Monocytes Percent Auto 12.1 % (2-11); Neutrophils Absolute Auto 1.8 x10*3/uL (2.0-8.3); Neutrophils Percent Auto 49.6 % (45-73); Platelet Count 126 X10*3/uL (160-400); Red Blood Count 2.95 X10*6/uL (4.60-5.80); Red Cell Distribution Width 14.1 % (11.0-16.0); White Blood Count 3.6 X10*3/uL (4.8-10.8)
[2023-10-17 15:50] LABS: INTERNATIONAL NORM RATIO 1.4 (0.9-1.1); Prothrombin Time 17.4 SEC (11.1-13.3)
[2023-10-17 15:56] LABS: Lactic Acid 1.6 mmol/L (0.5-2.0)
[2023-10-17 15:58] LABS: Valproate 84.9 mcg/mL (50.0-100.0)
[2023-10-17 16:00] VITALS: BP 100/59; PULSE 52; RESP 18; TEMP 36.6; O2SAT 97
[2023-10-17 16:05] LABS: Appearance Urine Clear; Color Urine Yellow; Glucose Urine UA Negative (Negative); Leukocyte Esterase Urine Negative (Negative); Nitrite Urine Negative (Negative); Urine Blood Negative (Negative); Urine Ketones Negative (Negative); Urine Protein Negative (Neg-Trace)
[2023-10-17 16:06] LABS: B Type Natriuretic Peptide 129 pg/mL (<100)
[2023-10-17 16:08] LABS: Alanine Aminotransferase 29 U/L (0-40); Albumin Level 2.8 g/dL (3.5-5.0); Alkaline Phosphatase 83 U/L (39-117); Anion Gap 11 (12-20); Aspartate Amino Transferase 36 U/L (5-37); Bilirubin Direct 0.3 mg/dL (0.0-0.5); Bilirubin Total 0.5 mg/dL (0.0-1.0); Blood Urea Nitrogen 26 mg/dL (9-16); Calcium 8.3 mg/dL (8.4-10.2); Carbon Dioxide 25 mmol/L (22-29); Chloride 110 mmol/L (96-108); Creatinine Clr Calc Pharmacy 42.3; Estimated Glomerular Filt Rate 35; Glucose Random 95 mg/dL (60-115); Lipase 15 U/L (8-78); Magnesium 1.9 mg/dL (1.6-2.6); Potassium 4.1 mmol/L (3.3-5.1); Sodium 142 mmol/L (135-145); Total Protein 5.3 g/dL (6.5-8.0); Troponin-I High Sensitivity 20.1 ng/L (<3.5-35.0)
[2023-10-17 16:23] LABS: Procalcitonin 0.06 ng/mL
[2023-10-17 18:53] VITALS: BP 106/62; PULSE 52; RESP 20; TEMP 36.7; O2SAT 95
--- NOTE | 2023-10-17 20:46 | PC.NURSE ---
per MD pt is now pt/cm and appropriate to be in ed overflow. report given to Ca CARLOS. awaiting transport. pt is axox4 resting comfortably in stretcher, vss.
[2023-10-17 20:50] VITALS: BP 104/52; PULSE 52; RESP 15; O2SAT 96
--- NOTE | 2023-10-17 21:39 | MHC.CM.ED ---
CM was unable to reach HCP/ on the telephone ([phone]). CM spoke with step-daughter Esther Lizarraga ([phone]). Esther tells CM that the patient was living in his own apartment and his was caring for him prior to his hospitalization /-10/01 at [facility] and discharge to [facility]. Daughter states he uses a walker, and is essentially not verbal since his stroke, but he understands. Esther tells CM that the patient has children who live in [place] and they are making plans for the patient to re-locate to [place] in the need future. The family is working on arrangements. She is requesting that patient not return to [facility] due to lack of air conditioning, stating it is broken and that they have asked for side rails so the patient does not fall out of the bed and the facility has not been responsive to their concerns. PT is pending and local referrals will be made. Pt has a qualifying stay. Pt is a . He sees Jessica Alan at the NH and [facility] for a PCP. CM will alert [facility] that patient will not be returning per family request. CM will follow for discharge planning.
[2023-10-18] VITALS (9 sets, daily range): BP systolic 116–148; BP diastolic 56–77; PULSE 45–62; RESP 12–20; TEMP 36.4–36.7; O2SAT 95–99
[2023-10-18] MEDS: 0.9 % Sodium Chloride 1,000 ML 100 ML IVCONT ×3 (04:46→20:50)
--- NOTE | 2023-10-18 09:40 | MHC.EDTECH ---
Set patient up for breakfast, emptied 250ml of urine
--- NOTE | 2023-10-18 15:50 | MHC.CM.PN ---
CM MET WITH PT AND S/O RIVERA (HCP) AT BEDSIDE. PT/HCP CONFIRM THAT THEY DO NOT WANT TO RETURN TO [facility]. PT NO LONGER HAS MH, BECAME INACTIVE. [facility] WILL NOW BE SECONDARY BUT FAMILY UNSURE IF HAS SNF BENEFIT. CM WILL HAVE TO CONFIRM WITH [facility] ON THURSDAY 10/19. [facility] HAS OFFERED PENDING [facility] VERIFICATION. CM CONTINUES TO FOLLOW FOR PLAN
--- NOTE | 2023-10-18 18:44 | PHA.MEDREC ---
Pharmacy Consult ? Medication Reconciliation Pharmacy has completed the medication reconciliation. used list from [facility]
--- NOTE | 2023-10-18 19:48 | PC.NURSE ---
Assumed care of patient at 19:00. Patient continues in ED overflow. ED provider Nilsa Gonzalesexted that pharmacy has completed med rec, medication orders requested.
[2023-10-18] MEDS: Divalproex Sodium ER 250 MG TAB.ER.24H PO (20:49)
[2023-10-18] MEDS: Atorvastatin Calcium 80 MG TABLET PO (20:49)
[2023-10-18] MEDS: Divalproex Sodium ER 500 MG TAB.ER.24H PO (20:49)
[2023-10-18] MEDS: Apixaban 5 MG TABLET PO (20:50)
[2023-10-18] MEDS: Sacubitril/Valsartan 49/51 1 TAB TABLET PO (20:50)
[2023-10-18] MEDS: Pyridoxine HCl (Vitamin B6) 50 MG TABLET 100 MG PO (20:50)
[2023-10-18] MEDS: Mirtazapine 15 MG TABLET PO (20:51)
--- NOTE | 2023-10-18 21:12 | PC.NURSE ---
Shauna not stocked in overflow pyxis; requested from pharmacy.
[2023-10-18] MEDS: levETIRAcetam 500 MG TABLET PO (21:17)
[2023-10-19] VITALS (10 sets, daily range): BP systolic 100–168; BP diastolic 65–98; PULSE 48–72; RESP 14–18; TEMP 36.2–37.2; O2SAT 96–100
--- NOTE | 2023-10-19 02:32 | PC.NURSE ---
Assumed care of patient at 19:00. Patient continues in ED overflow for PT/CM/placement. Pt pmhx notable for seizures and remote CVA with residual right weakness and expressive aphasia per family and chart review. Pt understand Divehi and an retread technician was used at bedside. Difficult to fully assess orientation due to expressive aphasia, though patient is appropriately alert to entering room and appears to understand questions being asked, he talks about being in the hospital now though describes being in [place] or [place]. Reorientation provided. Pt rings call reid appropriately and uses urinal independently without issue. HR in 40's on vitals, consistent with trend. Pt reports he feels good and denies chest pain, sob, n/v, pain or other issues. Scheduled Coreg held and covering CRIS Harris notified, NNO. Breathing is even and unlabored without distress on RA. Bed alarm on and safety measures in place.
[2023-10-19] MEDS: Levothyroxine Sodium 25 MCG TABLET PO (05:44)
[2023-10-19] MEDS: 0.9 % Sodium Chloride 1,000 ML 100 ML IVCONT (05:44)
[2023-10-19] MEDS: Sacubitril/Valsartan 49/51 1 TAB TABLET PO ×2 (09:27→19:57)
[2023-10-19] MEDS: Amiodarone HCL 200 MG TABLET PO (09:27)
[2023-10-19] MEDS: carvediloL 6.25 MG TABLET PO (09:28)
[2023-10-19] MEDS: Divalproex Sodium ER 500 MG TAB.ER.24H PO ×2 (09:28→19:58)
[2023-10-19] MEDS: Bumetanide 1 MG TABLET PO (09:28)
[2023-10-19] MEDS: Apixaban 5 MG TABLET PO ×2 (09:28→19:57)
[2023-10-19] MEDS: Pyridoxine HCl (Vitamin B6) 50 MG TABLET 100 MG PO ×2 (09:28→20:03)
[2023-10-19] MEDS: Aspirin Enteric Coated 81 MG TABLET.DR PO (09:28)
[2023-10-19] MEDS: levETIRAcetam 500 MG TABLET PO ×2 (09:28→19:57)
--- NOTE | 2023-10-19 16:18 | MHC.EDTECH ---
THIS PCT ASSUMED CARE OF PATIENT AT 1500 ,VITALS TAKEN ,PATIENT HAD LARGE AMOUNT OF DRY BLOOD CAME OUT FROM IV SITE ,CARE GIVEN AND BEDDING CHANGE ,PATIENT COMFORTABLE ,NO APPARENT DISTRESS NOTED ,FRESH BILLY JEWELL GIVEN ,CALL YEUNG WITHIN PATIENT REACH .
--- NOTE | 2023-10-19 17:00 | PC.NURSE ---
Patient c/o nausea, unable to tolerate PO intake, vomiting, provider notified, IV catheter placed - 22 R arm, IVF 500ml NS infused. Bladder scanned for 205ml. Protonix ordered and administered. CT scan with contrast ordered but patient unable to tolerate oral contrast, MD aware. Patient reports feeling better and able to have some broth for dinner.
--- NOTE | 2023-10-19 18:06 | MHC.EDTECH ---
Patient was set up with dinner ate 100 % of meal and drank 360 ml fluids ,Patient comfortable watching television .
--- NOTE | 2023-10-19 18:24 | PC.NURSE ---
Patient spent most shift in bed, ambulated to the bathroom with walker and one assist. Patients speech unclear, not oriented, unable to verify birthday, with the help of all terrain vehicle racer patient kept repeating letters and number without meaning. Was able to alert staff for help to the bathroom. No complain of pain.
[2023-10-19] MEDS: Mirtazapine 15 MG TABLET PO (19:57)
[2023-10-19] MEDS: Atorvastatin Calcium 80 MG TABLET PO (19:57)
[2023-10-19] MEDS: Divalproex Sodium ER 250 MG TAB.ER.24H PO (19:57)
[2023-10-20 05:42] VITALS: BP 123/68; PULSE 72; RESP 16; TEMP 37; O2SAT 97
--- NOTE | 2023-10-20 05:48 | MHC.EDTECH ---
PATIENT SLEPT MOST OF THE NIGHT ,UP 2 TIMES TO VOID 400 ML EMPTY FROM URINAL ,VITALS TAKEN .
[2023-10-20] MEDS: Levothyroxine Sodium 25 MCG TABLET PO (06:06)
[2023-10-20 10:04] VITALS: BP 123/68
[2023-10-20] MEDS: Pyridoxine HCl (Vitamin B6) 50 MG TABLET 100 MG PO ×2 (10:04→20:17)
[2023-10-20] MEDS: Amiodarone HCL 200 MG TABLET PO (10:04)
[2023-10-20] MEDS: levETIRAcetam 500 MG TABLET PO ×2 (10:04→20:18)
[2023-10-20] MEDS: Bumetanide 1 MG TABLET PO (10:04)
[2023-10-20 10:05] VITALS: BP 123/68; PULSE 72
[2023-10-20] MEDS: Apixaban 5 MG TABLET PO ×2 (10:05→20:18)
[2023-10-20] MEDS: carvediloL 6.25 MG TABLET PO (10:05)
[2023-10-20] MEDS: Sacubitril/Valsartan 49/51 1 TAB TABLET PO ×2 (10:05→20:18)
[2023-10-20] MEDS: Divalproex Sodium ER 500 MG TAB.ER.24H PO ×2 (10:05→20:18)
--- NOTE | 2023-10-20 13:44 | MHC.CM.ED ---
Addendum entered by Bhavani Evans 10/20/23 14:56: Met with patient, Aixa and data processing mechanic. Both are aware that [facility] is able to offer a different room. They do not want to accept a bed at [facility]. Both are aware we are still waiting to hear from [facility]. Original Note: Patient remains in ER overflow. Per Daisy at [place], patient is not eligible for STR/LTC under [facility] benefits. [facility] updated about this. Waiting to hear if they can still offer a bed. Continue to monitor for d/c needs.
[2023-10-20 14:00] VITALS: BP 122/76; PULSE 58; RESP 14; TEMP 36.6; O2SAT 99
[2023-10-20 20:12] VITALS: BP 120/75; PULSE 57; RESP 18; TEMP 36.6; O2SAT 99
[2023-10-20] MEDS: Mirtazapine 15 MG TABLET PO (20:17)
[2023-10-20] MEDS: Atorvastatin Calcium 80 MG TABLET PO (20:17)
[2023-10-20] MEDS: Divalproex Sodium ER 250 MG TAB.ER.24H PO (20:18)
[2023-10-20 20:21] VITALS: PULSE 57
[2023-10-21] VITALS (7 sets, daily range): BP systolic 101–136; BP diastolic 62–81; PULSE 52–101; RESP 16–19; TEMP 36.4–36.7; O2SAT 96–98
--- NOTE | 2023-10-21 05:51 | PC.NURSE ---
pt resting comfortably through the night with eyes closed, breathing even and unlabored. no apparent distress noted. call reid w/in reach
[2023-10-21] MEDS: Levothyroxine Sodium 25 MCG TABLET PO (06:00)
[2023-10-21] MEDS: levETIRAcetam 500 MG TABLET PO ×2 (07:25→22:00)
[2023-10-21] MEDS: carvediloL 6.25 MG TABLET PO (07:25)
[2023-10-21] MEDS: Sacubitril/Valsartan 49/51 1 TAB TABLET PO ×2 (07:25→21:59)
[2023-10-21] MEDS: Aspirin Enteric Coated 81 MG TABLET.DR PO (07:25)
[2023-10-21] MEDS: Apixaban 5 MG TABLET PO ×2 (07:25→22:00)
[2023-10-21] MEDS: Divalproex Sodium ER 500 MG TAB.ER.24H PO ×2 (07:25→21:59)
[2023-10-21] MEDS: Pyridoxine HCl (Vitamin B6) 50 MG TABLET 100 MG PO ×2 (07:25→22:00)
[2023-10-21] MEDS: Bumetanide 1 MG TABLET PO (07:26)
--- NOTE | 2023-10-21 11:42 | PC.NURSE ---
Report taken, contact made to pharmacy at 1130 regarding meds not stocked in [facility] pyxis. Per Mo from pharmacy, Meds have been sent down, and will track down. Plan at this time is to follow up with pharmacy at 1200 it check status.
--- NOTE | 2023-10-21 11:46 | PC.NURSE ---
Called pharmacy x4 beginning at ~0750 regarding amiodarone not being loaded in pyxis. This RN got floated at ~1140 and med was still not loaded, oncoming RN aware.
[2023-10-21] MEDS: Amiodarone HCL 200 MG TABLET PO (11:56)
--- NOTE | 2023-10-21 13:17 | MHC.CM.ED ---
Patient remains in ER overflow. Received notification that [facility] would not be able to accept patient without a secondary payor source. Virtual [place] shows patient as having [facility] [employer]. [employer] is for patients that are not [employer]. Patient is a [place] the [place] . T/W spoke with patient's step-daughter, Esther, via telephone. 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 Patient had [employer] until he turned 63 and then [employer] stated he had too much income. Patient recently had suffered from a CVA and is not able to stay at home. He will need prison care. Patient will need LTC [employer] application. [place] will reach out to family to get his completed. Reached out to [facility] to see if they are still able to offer a bed. [facility] feels they will be able to offer a bed and clinical updates have been sent to them via [employer]. Continue to monitor for d/c needs.
--- NOTE | 2023-10-21 19:27 | PC.NURSE ---
This RN assumed pt care @ 1900. Pt resting in bed, no signs of acute distress. Plan of care ongoing.
[2023-10-21] MEDS: Divalproex Sodium ER 250 MG TAB.ER.24H PO (21:59)
[2023-10-21] MEDS: Atorvastatin Calcium 80 MG TABLET PO (21:59)
[2023-10-21] MEDS: Mirtazapine 15 MG TABLET PO (22:00)
--- NOTE | 2023-10-21 22:12 | PC.NURSE ---
Pt medicated per jun. Carvedilol held d/t HR of 52. Pt requested and given a warm blanket. Plan of care ongoing.
[2023-10-22 06:00] VITALS: BP 108/60; PULSE 56; RESP 12; TEMP 36.4; O2SAT 97
[2023-10-22] MEDS: Levothyroxine Sodium 25 MCG TABLET PO (06:07)
--- NOTE | 2023-10-22 06:09 | PC.NURSE ---
Pt medicated per jun. Plan of care ongoing.
[2023-10-22 08:13] VITALS: BP 94/62; PULSE 58
[2023-10-22] MEDS: Amiodarone HCL 200 MG TABLET PO (08:13)
[2023-10-22] MEDS: Bumetanide 1 MG TABLET PO (08:13)
[2023-10-22] MEDS: Pyridoxine HCl (Vitamin B6) 50 MG TABLET 100 MG PO (08:13)
[2023-10-22] MEDS: Sacubitril/Valsartan 49/51 1 TAB TABLET PO (08:13)
[2023-10-22] MEDS: levETIRAcetam 500 MG TABLET PO (08:13)
[2023-10-22] MEDS: Apixaban 5 MG TABLET PO (08:13)
[2023-10-22] MEDS: Divalproex Sodium ER 500 MG TAB.ER.24H PO (08:13)
[2023-10-22 08:15] VITALS: BP 99/62; PULSE 60; RESP 16; TEMP 37; O2SAT 100
--- NOTE | 2023-10-22 11:57 | MHC.CM.ED ---
Addendum entered by Bhavani Evans 10/22/23 14:08: [facility] booked for 3pm. Patient, Kelin Kruse Brenna RN and Nilsa LYNCH aware. Original Note: Patient remains in ER overflow. Received telephone call from patient's daughter, Kelin in [facility]. She can be reached via telephone at [phone]. Kelin has been working with a chcf facility in [place] in order to eventually get patient to [place]. Per the SW at that facility, it would easier for their facility if patient returned to [facility] so they can arrange for patient to get to their facility directly when they have a bed for him. Verified with [facility] that they are still able to offer a bed in a different room with air conditioning. Met with Aixa and gi tech. This information was explained to her. Aixa is agreeable to patient returning to [facility] if it is guaranteed patient will be in a room with air conditioning. [facility]. Waiting to hear when patient can transfer back to [facility]. Continue to monitor for d/c needs.
[2023-10-22 14:56] VITALS: BP 99/62; PULSE 60; RESP 16; TEMP 37; O2SAT 100
== END 2023-10-22 15:01 | disposition skilled nursing facility (03) ==
PROVIDERS: Emergency Medicine; Absent Provider Internal Medicine; Emergency Provider Emergency Medicine; PCP Internal Medicine
DX: R55 Syncope and collapse (principal); R42 Dizziness and giddiness; I95.9 Hypotension, unspecified; R00.1 Bradycardia, unspecified; R53.1 Weakness; I44.0 Atrioventricular block, first degree; R06.02 Shortness of breath; R11.2 Nausea with vomiting, unspecified; R26.2 Difficulty in walking, not elsewhere classified; Z86.73 Personal history of transient ischemic attack (TIA), and cerebral infarction without residual deficits; Z79.899 Other long term (current) drug therapy
CPT/HCPCS: 36415; 71045; 80048; 80076; 80164; 81003; 82550; 83605; 83690; 83735; 83880; 84145; 84484; 85025; 85610; 87040; 93005; 96360; 96361; 97162; 99285

== ENCOUNTER → 2023-10-17 14:16 | Outpatient (BNV) | payer OTHER, SELFPAY | PROVIDERS: Absent Provider Internal Medicine; Emergency Provider Emergency Medicine; PCP Internal Medicine; Visit Provider Internal Medicine Cardiovascular Disease | DX: R94.31 Abnormal electrocardiogram [ECG] [EKG] (principal) | CPT/HCPCS: 93010 ==

== ENCOUNTER 2023-11-28 16:12 | Emergency (ER) | payer OTHER, SELFPAY ==
--- NOTE | ~2023-11-28 | XR_ITS ---
EXAMINATION: XR CHEST CLINICAL INFORMATION: Pulmonary edema. COMPARISON: Chest radiograph dated 10/17/2023. TECHNIQUE: Frontal view of the chest was obtained. FINDINGS: There is a single lead cardiac device overlying the left lateral chest wall. The lead overlies the right ventricle. The heart is minimally enlarged, similar to the prior study. The lungs are clear. There is no pleural effusion or pneumothorax. No significant edema. No acute osseous abnormality. XR/XR chest 1V IMPRESSION: Stable appearance of the heart and lungs. No significant edema.
--- NOTE | ~2023-11-28 | CT_ITS ---
EXAMINATION: CT HEAD WITHOUT CONTRAST CLINICAL INFORMATION: Fall, head strike, on blood thinners COMPARISON: CT head 09/27/2023 TECHNIQUE: Contiguous axial imaging was performed from the skull base to vertex without intravenous administration of contrast. This CT examination was performed using dose optimization techniques as appropriate, variously including the following: *Automated exposure control *Adjustment of mA and/or kV according to patient size (this includes techniques or standardized protocols for targeted exams where dose is matched to indication/reason for exam; i.e. extremities or head) *Use of iterative reconstruction technique DLP: 716 mGy-cm FINDINGS: Redemonstrated is chronic encephalomalacia within the left MCA territory, with prominent volume loss. This predominantly involves the lateral aspect left frontal lobe, left temporal lobe, the left insula and basal ganglia. Findings similar to previous. No evidence of acute intracranial hemorrhage. No new acute edematous territorial infarction is identified. The ventricles are stable in size. No evidence of obstructive hydrocephalus. No mass effect is appreciated. Stable 0.5 cm leftward midline shift. No abnormal extra-axial fluid collections are identified. No acute calvarial fracture. Paranasal sinuses and mastoid air cells evaluated. CT/CT head/brain wo IV con IMPRESSION: 1. No CT evidence of acute intracranial hemorrhage or edematous territorial infarction. 2. Chronic encephalomalacia in the left MCA territory redemonstrated, similar to previous.
--- NOTE | 2023-11-28 16:24 | MHC.EDTECH ---
pt changed over into hospital gown and placed on pvc monitor
[2023-11-28 16:26] VITALS: BP 106/68; BP 97/63; PULSE 55; PULSE 60; RESP 16; TEMP 36.4; O2SAT 100; O2SAT 98; BMI 28.8
--- NOTE | 2023-11-28 16:57 | ECG_ITS ---
Test Reason : SYNCOPE Blood Pressure : / mmHG Vent. Rate : 054 BPM Atrial Rate : 054 BPM P-R Int : 214 ms QRS Dur : 146 ms QT Int : 496 ms P-R-T Axes : 087 -36 127 degrees QTc Int : 470 ms Sinus bradycardia with 1st degree A-V block Left axis deviation Left bundle branch block Abnormal ECG When compared with ECG of 17-OCT-2023 14:21, No significant change was found Referred By: Shaina Howell Electronically Signed By:Ovidio Bobo
--- NOTE | 2023-11-28 17:15 | ED_ITS ---
HPI - General Adult General Chief complaint: Syncope Stated complaint: syncopal episode while seated, hypotensive Time Seen by Provider: 11/28/23 16:53 Source: patient and EMS Mode of arrival: EMS Limitations: no limitations History of Present Illness ED Provider: Dr. Shaina Howell HPI narrative: patient comes to the emergency room via ambulance. According to EMS, patient had a syncopal episode. However, now that patient is here in the ED, patient states that he was getting a haircut and he knew he was about to gestation did get 1 seizure. When EMS arrived, found the patient to be confused/postictal, blood pressure 69/53, patient was given 200 mL of normal saline, blood pressure improved to 97/63. Patient states that he feels much better, still feeling confused. Patient states that it was not a syncopal episode, he states he had 1 seizure. Patient states he takes Keppra and valproic acid Related Data Home Medications ?Medication ?Instructions ?Recorded ?Confirmed apixaban 5 mg tablet (Eliquis) 5 mg PO BID 07/02/21 10/18/23 atorvastatin 80 mg tablet 80 mg PO BEDTIME 07/02/21 10/18/23 aspirin 81 mg tablet,delayed 81 mg PO Q OTHER DAY 06/20/23 10/18/23 release clonazepam 1 mg tablet 1 mg PO Q20M PRN Seizure Activity 06/20/23 10/18/23 methyl salicylate 15 %-menthol 10 1 appl topical Q4H PRN Muscle Pain 06/20/23 10/18/23 % topical cream levothyroxine 25 mcg tablet 25 mcg PO DAILY@0600 09/28/23 10/18/23 (Synthroid) acetaminophen 325 mg tablet 650 mg PO Q4H PRN Fever Or Pain 10/18/23 10/18/23 bisacodyl 10 mg rectal suppository 10 mg MA DAILY PRN Constipation 10/18/23 10/18/23 bumetanide 1 mg tablet 1 mg PO DAILY 10/18/23 10/18/23 carvedilol 6.25 mg tablet 6.25 mg PO BID 10/18/23 10/18/23 magnesium hydroxide 400 mg/5 mL 30 ml PO DAILY PRN Constipation 10/18/23 10/18/23 oral suspension (Milk of Magnesia) mirtazapine 15 mg tablet 15 mg PO BEDTIME 10/18/23 10/18/23 sennosides 8.6 mg tablet (senna) 8.6 mg PO Q12H PRN Constipation 10/18/23 10/18/23 sodium phosphates 19 gram-7 118 ml MA DAILY PRN Constipation 10/18/23 10/18/23 gram/118 mL enema (Fleet Enema) Previous Rx's ?Medication ?Instructions ?Recorded divalproex 500 mg tablet,extended 500 mg PO BID #60 tabs 06/03/23 release 24 hr (Depakote ER) pyridoxine (vitamin B6) 100 mg 100 mg PO BID #60 tabs 06/03/23 tablet (Vitamin B-6) sacubitril 49 mg-valsartan 51 mg 1 tab PO BID #60 tabs 08/19/23 tablet (Entresto) amiodarone 200 mg tablet 200 mg PO DAILY #60 tabs 10/01/23 divalproex 250 mg tablet,extended 250 mg PO BEDTIME #90 tabs 10/01/23 release 24 hr (Depakote ER) levetiracetam 500 mg tablet 500 mg PO BID #120 tabs 10/01/23 levetiracetam 750 mg tablet 750 mg PO BID #60 tabs 11/28/23 (Keppra) Allergies Allergy/AdvReac Type Severity Reaction Status Date / Time No Known Allergies Allergy Verified 11/28/23 16:32 [No Known Allergies*] Review of Systems 2 Review of Systems: Constitutional : No Weight loss, No Fever, No Chills, No Night Sweats, No Fatigue, No Malaise still feeling a bit confused ENT/Mouth : No Hearing loss, No Ear Pain, No Nasal Congestion, No Sinus Pain, No Hoarseness, No sore throat, No Rhinorrhea, No Swallowing Difficulty Eyes: No Eye Pain, No Swelling, No Redness, No Foreign Body, No Discharge, No Vision Changes Cardiovascular : No Chest Pain, No SOB, No Dyspnea on Exertion, No Orthopnea, No Edema, No Palpitations Respiratory : No Cough, No Sputum, No Wheezing, No Smoke Exposure, No Dyspnea Gastrointestinal : No Nausea, No Vomiting, No Diarrhea, No Constipation, No abdominal Pain, No Hematochezia, No Melena Genitourinary : no irregular bleeding, No Dysuria, No Urinary Frequency, No Hematuria, No Urinary Incontinence, No Urgency, No Flank Pain, No Urinary Flow Changes, No Hesitancy Musculoskeletal : No joint pain, No Myalgias, No Joint Swelling Skin : No Skin Lesions, No rash Neuro : No Weakness, No Numbness, No Paresthesias, less of consciousness versus syncopal episode Psych : No Anxiety/Panic, No Depression, No SI/HI/AH/VH, No Social Issues, Heme/Lymph: No Bruising, No Bleeding,No Lymphadenopathy Endocrine : No Polyuria, No Polydipsia, No Temperature Intolerance [facility] Past Medical History Medical History Pancytopenia FRAN on CPAP PAF (paroxysmal atrial fibrillation) Chronic heart failure DOT (acute kidney injury) Behavior disturbance Seizure as late effect of cerebrovascular accident (CVA) Restrictive lung disease Uncontrolled hypertension Acute decompensated heart failure Cerebrovascular accident CVA (cerebral vascular accident) Atrial fibrillation with rapid ventricular response Persistent atrial fibrillation Chronic systolic heart failure Gallstones CHF (congestive heart failure) Embolism of kidney CKD (chronic kidney disease), stage II Cardiac defibrillator in place NSVT (nonsustained ventricular tachycardia) NICM (nonischemic cardiomyopathy) Renal infarct Hypertension Surgical History History of cardiac defibrillator placement Family History Family History Mother No problems noted. Father No problems noted. 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 Tobacco Use Status: Tobacco use Unknown e-Cigarette/Vaping Use: Never Used Second Hand Smoke Exposure: No Advance Directives: Yes Advance Directives on File: Yes Advance Directives Date on File: 10/18/20 Do you have a plan to hurt others: No Plan service: Yes Current occupational status: unemployed Cognitive needs: Yes Hearing needs: No Vision needs: No Physical Exam ED Vital Signs: Vital Signs - 24 hr 11/28/23 16:26 11/28/23 19:31 11/28/23 19:40 Temperature 97.5 F Pulse Rate 55 56 Respiratory Rate 16 15 Blood Pressure 106/68 129/77 Pulse Oximetry 98 99 99 Oxygen Delivery Method Room Air Room Air Room Air 11/28/23 20:21 11/28/23 22:28 Temperature 97.9 F 98.2 F Pulse Rate 56 65 Respiratory Rate 12 13 Blood Pressure 130/79 136/79 Pulse Oximetry 97 Oxygen Delivery Method Room Air Room Air BMI result Body Mass Index 28.8 Const Other: Appearance: Alert. Oriented X3. No acute distress. still seems a bit confused, answers accurately yes no questions but open in the questions patient still pretty confused Eyes: Pupils equal, round and reactive to light. ENT: Pharynx normal. Neck: Normal inspection. Neck supple. No lymph nodes noted. No crepitus CVS: Normal heart rate and rhythm. Pulses normal. Normal S1 and S2 Respiratory: No respiratory distress. Breath sounds normal. No Wheezing. No rales Abdomen: Soft and nontender. No rigidity. No distention. Skin: Skin warm and dry. Normal skin color. Normal skin turgor. Extremities: No lower extremity edema. No Lacerations. No Rash Neuro: known left-sided deficits in upper extremity secondary to previous stroke Psych: calm, cooperative, normal affect Course Course Course Narrative: all of patient's labs pending Medications Administered Discontinued Medications Generic Name Dose Route Start Last Admin Trade Name Freq PRN Reason Stop Dose Admin Levetiracetam 1,500 mg in 100 mls @ 400 mls/hr 11/28/23 17:05 11/28/23 19:30 Keppra IV 11/28/23 17:19 Infused ONCE ONE Infusion Medical Decision Making Medical Decision Making [facility] Narrative: - my interpretation of labs: Patient's hematology at baseline,, chemistry at baseline, creatinine 1.55 which is chronic. Patient's troponin was slightly elevated from normal, 1st troponin 35.7, 2nd troponin 35.5. No EKG changes. BNP 215 which is chronic for the patient and stable. Urinalysis negative for UTI toxicology negative, EtOH negative - head CT and cervical spine CT within normal limits., Chronic encephalomalacia patient states that he feels back to normal, patient would like to be discharged home. Patient states that he does not want to have any further lab work done and does not want to be admitted. - overall, seems that patient had a seizure. Patient states that when he was at the [employer] he knew he was going to get a seizure, felt an aura, patient only had 1 seizure today. Patient has history of breakthrough seizures. - Patient's Keppra increased to 750 mg b.i.d. - patient's vitals stable, blood pressure 136/79, heart rate 65, respirations 13, temperature 98.2 degrees, oxygen saturation 97% on room air. Patient states that he feels back to baseline, patient being discharged in stable condition Differential Diagnosis Differential Diagnoses: The differential diagnosis associated with the presentation includes ( TIA, CVA, seizure) Admission/Observation Consideration of admission/observation: Escalation of care including admission/observation considered ( given patient's presentation, admission was considered) Lab Data MDM Lab Attestation statement: I reviewed the patient's lab results. 11/28/23 19:01 11/28/23 19:01 Labs: Lab Results 11/28/23 11/28/23 11/28/23 Range/Units 19:01 20:25 21:48 WBC 4.3 L (4.8-10.8) X10*3/uL RBC 3.20 L (4.60-5.80) X10*6/uL Hgb 11.6 L (14.0-18.0) g/dl Hct 35.5 L (42.0-52.0) % MCV 110.9 H (80.0-98.0) fL MCH 36.3 H (27.0-33.0) pg MCHC 32.7 (31.0-36.0) g/dl RDW 13.4 (11.0-16.0) % Plt Count 121 L (160-400) X10*3/uL MPV 11.1 (9.4-12.4) fL Immature Gran % (Auto) 0.5 H (0.0-0.4) % Neut % (Auto) 56.3 (45-73) % Lymph % (Auto) 30.5 (20-40) % Emmons % (Auto) 12.0 H (2-11) % Eos % (Auto) 0.2 (0-4) % Baso % (Auto) 0.5 (0-2) % Lymph # (Auto) 1.3 (1.2-4.9) X10*3/uL Emmons # (Auto) 0.5 (0.1-1.2) X10*3/uL Eos # (Auto) 0.0 (0.0-0.4) X10*3/uL Baso # (Auto) 0.0 (0.0-0.2) X10*3/uL Abs Immat Gran (auto) 0.02 (0.00-0.03) X10*3/uL Absolute Neuts (auto) 2.4 (2.0-8.3) x10*3/uL Absolute Nucleated RBC 0.000 (0.0-0.012) X10*3/uL Nucleated RBC % (auto) 0.0 (0.0-0.2) /100WBC PT 15.3 H (11.1-13.3) SEC INR 1.3 H (0.9-1.1) Sodium 142 (135-145) mmol/L Potassium 4.0 (3.3-5.1) mmol/L Chloride 112 H (96-108) mmol/L Carbon Dioxide 24 (22-29) mmol/L Anion Gap 10 L (12-20) BUN 19 H (9-16) mg/dL Creatinine 1.55 H (0.5-1.4) mg/dL Estim Creat Clear Calc 53.8 Estimated GFR 45 Random Glucose 99 (60-115) mg/dL Lactic Acid 1.2 (0.5-2.0) mmol/L Calcium 8.2 L (8.4-10.2) mg/dL Magnesium 1.9 (1.6-2.6) mg/dL Total Bilirubin 1.1 H (0.0-1.0) mg/dL Direct Bilirubin 0.5 (0.0-0.5) mg/dL AST 56 H (5-37) U/L ALT 34 (0-40) U/L Alkaline Phosphatase 66 (39-117) U/L Ammonia 24 (13-55) umol/L Troponin I High Sens 35.7 H D 35.5 H (<3.5-35.0) ng/L B-Natriuretic Peptide 215 H (<100) pg/mL Total Protein 5.3 L (6.5-8.0) g/dL Albumin 3.0 L (3.5-5.0) g/dL Urine Color Dark Yellow Urine Appearance Clear Urine pH 5.5 (5.0-9.0) Ur Specific Lincoln 1.025 (1.005-1.025) Urine Protein Trace (Neg-Trace) mg/dL Urine Glucose (UA) Negative (Negative) mg/dL Urine Ketones Trace (Negative) mg/dL Urine Blood Negative (Negative) Urine Nitrite Negative (Negative) Ur Leukocyte Esterase Negative (Negative) Urine Opiates Screen Not Detected (Not Detect) Ur Buprenorphine Scrn Not Detected (Not Detect) ng/mL Ur Oxycodone Screen Not Detected (Not Detect) ng/mL Urine Methadone Screen Not Detected (Not Detect) ng/mL Urine Fentanyl Screen Not Detected (Not Detect) Ur Barbiturates Screen Not Detected (Not Detect) Valproic Acid 62.2 (50.0-100.0) mcg/mL Ur Phencyclidine Scrn Not Detected (Not Detect) Ur Amphetamines Screen Not Detected (Not Detect) U Benzodiazepines Scrn Not Detected (Not Detect) Urine Cocaine Screen Not Detected (Not Detect) U Marijuana (THC) Screen Not Detected (Not Detect) Ethyl Alcohol < 10 mg/dL Independent Interpretation I performed an independent interpretation of an: CT Scan Radiology Impression Discussion of test interpretation with radiology: I have reviewed the radiologist's reading. Radiologist Impression: Redemonstrated is chronic encephalomalacia within the left MCA territory, with prominent volume loss. This predominantly involves the lateral aspect left frontal lobe, left temporal lobe, the left insula and basal ganglia. Findings similar to previous. No evidence of acute intracranial hemorrhage. No new acute edematous territorial infarction is identified. The ventricles are stable in size. No evidence of obstructive hydrocephalus. No mass effect is appreciated. Stable 0.5 cm leftward midline shift. No abnormal extra-axial fluid collections are identified. No acute calvarial fracture. Paranasal sinuses and mastoid air cells evaluated. CT/CT head/brain wo IV con IMPRESSION: 1. No CT evidence of acute intracranial hemorrhage or edematous territorial infarction. 2. Chronic encephalomalacia in the left MCA territory redemonstrated, similar to previous. Independent Historian Clinical information obtained from an independent historian. History obtained from or confirmed by: EMS Critical Care Time Critical Care Time Critical Care Time: Yes Total Critical Care Time: 45 Attestation: I have personally provided critical care time. Time includes review of lab data, radiology results, discussion with consultants, and monitoring for potential decompensation. Intervention performed as documented. Discharge Plan Discharge Clinical Impression: Breakthrough seizure Patient Disposition: Home, Self-Care Instructions: Recurrent Seizures in Adults (ED) Additional Instructions: please increase your Keppra to 750 mg b.i.d.. Please follow-up with your neurologist. Please follow-up with your primary care physician tomorrow. If you have any worsening or new symptoms, please return to the emergency room or call 911 Prescriptions: New levetiracetam [Keppra] 750 mg tablet 750 mg PO BID Qty: 60 0RF No Action pyridoxine (vitamin B6) [Vitamin B-6] 100 mg tablet 100 mg PO BID Qty: 60 6RF divalproex [Depakote ER] 500 mg tablet extended release 24 hr 500 mg PO BID Qty: 60 6RF atorvastatin 80 mg tablet 80 mg PO BEDTIME Eliquis 5 mg tablet 5 mg PO BID methyl salicylate-menthol 15-10 % Cream 1 appl TOPICAL Q4H PRN (Reason: Muscle Pain) aspirin 81 mg Tablet,Delayed Release (Dr/Ec) 81 mg PO Q OTHER DAY clonazepam 1 mg tablet 1 mg PO Q20M PRN (Reason: Seizure Activity) Rx Instructions: [facility]: administer before bedtime sennosides [senna] 8.6 mg Tablet 8.6 mg PO Q12H PRN (Reason: Constipation) acetaminophen 325 mg Tablet 650 mg PO Q4H MDD 3g PRN (Reason: Fever Or Pain) carvedilol 6.25 mg Tablet 6.25 mg PO BID Rx Instructions: must administer with a meal/food magnesium hydroxide [Milk of Magnesia] 400 mg/5 mL Suspension 30 ml PO DAILY PRN (Reason: Constipation) bisacodyl 10 mg Suppository 10 mg MA DAILY PRN (Reason: Constipation) Fleet Enema 19-7 gram/118 mL Enema 118 ml MA DAILY PRN (Reason: Constipation) mirtazapine 15 mg Tablet 15 mg PO BEDTIME bumetanide 1 mg tablet 1 mg PO DAILY levothyroxine [Synthroid] 25 mcg tablet 25 mcg PO DAILY@0600 amiodarone 200 mg tablet 200 mg PO DAILY Qty: 60 0RF levetiracetam 500 mg tablet 500 mg PO BID Qty: 120 0RF Rx Instructions: Take every morning 30 minutes before breakfast with a full glass of water divalproex [Depakote ER] 250 mg tablet extended release 24 hr 250 mg PO BEDTIME Qty: 90 0RF Entresto 49-51 mg tablet 1 tab PO BID Qty: 60 5RF Print Language: Sami
[2023-11-28] MEDS: levETIRAcetam in NaCl (iso-os) 1,500 MG/100 ML PIGGYBACK 400 MG IV (17:44)
--- NOTE | 2023-11-28 17:59 | MHC.EDTECH ---
at this time pt wanted to be combative and hit and grab and be verbally abusive at the tech trying to draw labs, labs not draw comment left in [facility] link
[2023-11-28 19:09] LABS: MANUAL DIFF FLAG NO
[2023-11-28 19:11] LABS: Basophils Percent Auto 0.5 % (0-2); Eosinophils Percent Auto 0.2 % (0-4); Hemoglobin 11.6 g/dl (14.0-18.0); PLT CLUMP 1; Red Cell Distribution Width 13.4 % (11.0-16.0); SCAN SMEAR FLAG 1
[2023-11-28 19:13] LABS: Hematocrit 35.5 % (42.0-52.0); Imm Gran Abs Auto 0.02 X10*3/uL (0.00-0.03); Imm Gran Pct Auto 0.5 % (0.0-0.4); Lymphocytes Absolute Auto 1.3 X10*3/uL (1.2-4.9); Lymphocytes Percent Auto 30.5 % (20-40); Mean Corpuscular HGB Conc 32.7 g/dl (31.0-36.0); Mean Corpuscular Hemoglobin 36.3 pg (27.0-33.0); Mean Platelet Volume 11.1 fL (9.4-12.4); Monocytes Absolute Auto 0.5 X10*3/uL (0.1-1.2); Neutrophils Absolute Auto 2.4 x10*3/uL (2.0-8.3); Neutrophils Percent Auto 56.3 % (45-73)
[2023-11-28 19:17] LABS: Ammonia 24 umol/L (13-55)
[2023-11-28 19:18] LABS: INTERNATIONAL NORM RATIO 1.3 (0.9-1.1); Prothrombin Time 15.3 SEC (11.1-13.3)
[2023-11-28 19:21] LABS: Mean Corpuscular Volume 110.9 fL (80.0-98.0); White Blood Count 4.3 X10*3/uL (4.8-10.8)
[2023-11-28 19:22] LABS: Platelet Count 121 X10*3/uL (160-400)
[2023-11-28 19:31] VITALS: BP 129/77; PULSE 56; RESP 15; O2SAT 99
[2023-11-28 19:31] LABS: Alanine Aminotransferase 34 U/L (0-40); Alkaline Phosphatase 66 U/L (39-117); Anion Gap 10 (12-20); Aspartate Amino Transferase 56 U/L (5-37); B Type Natriuretic Peptide 215 pg/mL (<100); Bilirubin Direct 0.5 mg/dL (0.0-0.5); Bilirubin Total 1.1 mg/dL (0.0-1.0); Blood Urea Nitrogen 19 mg/dL (9-16); Calcium 8.2 mg/dL (8.4-10.2); Carbon Dioxide 24 mmol/L (22-29); Chloride 112 mmol/L (96-108); Creatinine Clr Calc Pharmacy 53.8; Estimated Glomerular Filt Rate 45; Ethanol < 10 mg/dL; Glucose Random 99 mg/dL (60-115); Magnesium 1.9 mg/dL (1.6-2.6); Sodium 142 mmol/L (135-145); Total Protein 5.3 g/dL (6.5-8.0)
[2023-11-28 19:32] LABS: Lactic Acid 1.2 mmol/L (0.5-2.0)
[2023-11-28 19:33] LABS: Troponin-I High Sensitivity 35.7 ng/L (<3.5-35.0)
[2023-11-28 19:34] LABS: Valproate 62.2 mcg/mL (50.0-100.0)
[2023-11-28 19:40] VITALS: O2SAT 99
[2023-11-28 20:21] VITALS: BP 130/79; PULSE 56; RESP 12; TEMP 36.6; O2SAT 97
[2023-11-28 20:33] LABS: Appearance Urine Clear; Color Urine Dark Yellow; Glucose Urine UA Negative (Negative); Leukocyte Esterase Urine Negative (Negative); Nitrite Urine Negative (Negative); PH 5.5 (5.0-9.0); Specific Gravity - Urine 1.025 (1.005-1.025); Urine Blood Negative (Negative); Urine Ketones Trace mg/dL (Negative); Urine Protein Trace mg/dL (Neg-Trace)
[2023-11-28 20:45] LABS: Amphetamine Screen Urine Not Detected (Not Detect); Barbiturates, Urine Not Detected (Not Detect); Benzodiazepines Screen Urine Not Detected (Not Detect); Buprenorphine Scr Not Detected (Not Detect); Cannabinoid Screen Urine Not Detected (Not Detect); Cocaine Screen Urine Not Detected (Not Detect); Fentanyl, urine Not Detected (Not Detect); Methadone Screen, Urine Not Detected (Not Detect); Opiate Screen Urine Not Detected (Not Detect); Oxycodone Screen Urine Not Detected (Not Detect); Phencyclidine Screen Urine Not Detected (Not Detect)
[2023-11-28 22:13] LABS: Troponin-I High Sensitivity 35.5 ng/L (<3.5-35.0)
[2023-11-28 22:28] VITALS: BP 136/79; PULSE 65; RESP 13; TEMP 36.8
[2023-11-28 23:44] VITALS: BP 136/75; PULSE 56; RESP 17; TEMP 36.6; O2SAT 98
[2023-11-29 00:01] VITALS: BP 136/75; PULSE 56; RESP 17; TEMP 36.6; O2SAT 98
[2023-12-02 20:09] LABS: Levetiracetam Keppra 30.9 mcg/mL (6.0-46.0)
== END 2023-11-29 00:02 | disposition home or self-care (01) ==
PROVIDERS: Emergency Provider Emergency Medicine; PCP Internal Medicine
DX: G40.901 Epilepsy, unspecified, not intractable, with status epilepticus (principal); I48.0 Paroxysmal atrial fibrillation; G93.89 Other specified disorders of brain; Z86.73 Personal history of transient ischemic attack (TIA), and cerebral infarction without residual deficits; Z79.01 Long term (current) use of anticoagulants; Z79.02 Long term (current) use of antithrombotics/antiplatelets; Z79.899 Other long term (current) drug therapy; Z95.810 Presence of automatic (implantable) cardiac defibrillator
CPT/HCPCS: 36415; 70450; 71045; 80048; 80076; 80164; 80177; 80307; 81003; 82140; 83605; 83735; 83880; 84484; 85025; 85610; 93005; 96365; 96366; 99285; J1953

== ENCOUNTER → 2023-11-28 16:57 | Outpatient (BNV) | payer OTHER, MEDICARE, SELFPAY | PROVIDERS: Emergency Provider Emergency Medicine; PCP Internal Medicine; Visit Provider Internal Medicine Cardiovascular Disease | DX: R94.31 Abnormal electrocardiogram [ECG] [EKG] (principal) | CPT/HCPCS: 93010 ==

== ENCOUNTER → 2023-12-13 23:59 | Outpatient (BNV) | payer OTHER, MEDICARE, SELFPAY ==
--- NOTE | 2023-12-29 20:06 | MHC.OFFVIS ---
Intake Visit Reasons: Remote ICD check- [employer] Allergies No Known Allergies [No Known Allergies*] Allergy (Verified 11/28/23 16:32) [facility] Medical History Pancytopenia FRAN on CPAP PAF (paroxysmal atrial fibrillation) Chronic heart failure DOT (acute kidney injury) Behavior disturbance Seizure as late effect of cerebrovascular accident (CVA) Restrictive lung disease Uncontrolled hypertension Acute decompensated heart failure Cerebrovascular accident CVA (cerebral vascular accident) Atrial fibrillation with rapid ventricular response Persistent atrial fibrillation Chronic systolic heart failure Gallstones CHF (congestive heart failure) Embolism of kidney CKD (chronic kidney disease), stage II Cardiac defibrillator in place NSVT (nonsustained ventricular tachycardia) NICM (nonischemic cardiomyopathy) Renal infarct Hypertension Surgical History History of cardiac defibrillator placement Family History Mother No problems noted. Father No problems noted. 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 No new alerts [employer]IC[employer] 68%. [id number] Cardiac Device Check, dual lead implantable defibrillator Procedure code (CPT) selection complete Assessment & Plan Assessment & Plan (1) Chronic systolic heart failure: Code(s): I50.22 - Chronic systolic (congestive) heart failure Category: Medical Plan: Coding Level of Care Code Procedure Only Diagnoses Chronic systolic heart failure I50.22 CPT Codes Cardiac Device Check - Cardiac Device 5: [id number] Cardiac Device Check, dual lead implantable defibrillator ([id number])
== END ==
PROVIDERS: PCP Internal Medicine; Visit Provider Internal Medicine Cardiovascular Disease
DX: I50.22 Chronic systolic (congestive) heart failure (principal); Z95.810 Presence of automatic (implantable) cardiac defibrillator
CPT/HCPCS: 93295

== ENCOUNTER → 2024-04-26 23:59 | Outpatient (BNV) | payer MEDICARE, SELFPAY ==
--- NOTE | 2024-05-16 17:13 | A.OFFVIS_ITS ---
Intake Visit Reasons: Remote ICD check- [employer] Allergies No Known Allergies [No Known Allergies*] Allergy (Verified 11/28/23 16:32) [facility] Medical History Pancytopenia FRAN on CPAP PAF (paroxysmal atrial fibrillation) Chronic heart failure DOT (acute kidney injury) Behavior disturbance Seizure as late effect of cerebrovascular accident (CVA) Restrictive lung disease Uncontrolled hypertension Acute decompensated heart failure Cerebrovascular accident CVA (cerebral vascular accident) Atrial fibrillation with rapid ventricular response Persistent atrial fibrillation Chronic systolic heart failure Gallstones CHF (congestive heart failure) Embolism of kidney CKD (chronic kidney disease), stage II Cardiac defibrillator in place NSVT (nonsustained ventricular tachycardia) NICM (nonischemic cardiomyopathy) Renal infarct Hypertension Surgical History History of cardiac defibrillator placement Family History Mother No problems noted. Father No problems noted. 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 Tobacco Use Status: Tobacco use Unknown e-Cigarette/Vaping Use: Never Used Second Hand Smoke Exposure: No Advance Directives: Yes Advance Directives on File: Yes Advance Directives Date on File: 10/18/20 Do you have a plan to hurt others: No Plan service: Yes Current occupational status: unemployed Cognitive needs: Yes Hearing needs: No Vision needs: No Office Procedures Cardiac Device Check Cardiac Device Check Details: Single lead ICD Good battery No new alerts [employer] CONSULTANT 59% [id number] Cardiac Device Check, single lead implantable defibrillator Procedure code (CPT) selection complete Assessment & Plan Assessment & Plan (1) Chronic systolic heart failure: Code(s): I50.22 - Chronic systolic (congestive) heart failure Category: Medical Plan: Coding Level of Care Code Procedure Only Diagnoses Chronic systolic heart failure I50.22 CPT Codes Cardiac Device Check - Cardiac Device 4: [id number] Cardiac Device Check, single lead implantable defibrillator ([id number])
== END ==
PROVIDERS: PCP Internal Medicine; Visit Provider Internal Medicine Cardiovascular Disease
DX: I50.22 Chronic systolic (congestive) heart failure (principal); Z95.810 Presence of automatic (implantable) cardiac defibrillator
CPT/HCPCS: 93295